=== PATIENT | male | born 1945 | race Caucasian/White ===

== ENCOUNTER 2016-05-08 11:52 | Day surgery (SDC) | payer MEDICARE ==
[~2016-05-08] VITALS: Ht 172.7 cm; Wt 96.4 kg
[~2016-05-08 11:52] MED LIST: ACET-2267 PO; ACET-2469 PO; ACHD5005 PO; ALLO100T PO; ALLP100T PO; AMLO10TA2 PO; AMLO5TAB2 PO; APIX5TAB2 PO; ATOR10TA PO; CETI10CA PO; CETI10TA17 PO; CHOL10003 PO; CITA-105 PO; CLOP75TA28 PO; CYCL10TA9 PO; DIABETIC PILL; DONE5TAB30 PO; DOXA4TAB2 PO; DULO60CA6 PO; ESCI5TAB PO; FINA5TAB PO; FINA5TAB6 PO; FLUO40CA PO; HYDR-229 PO; HYDR-3583 PO; HYDR-3714 PO; LISI1TAB PO; LISI1TAB8 PO; MELO-195 PO; MELO-198 PO; METF1000 PO; METF500T4 PO; METO25TA6 PO; MTF500T PO; PROSTATE PILL; RANO500T3 PO; [UNRECOGNIZED DRUG - OTHER] PO
[2016-05-08] MEDS ORDERED: ASPIRIN 81 MG CHEW (CHILDREN'S ASA) PO ONE (12:15)
[2016-05-08 12:26] LABS: BASOPHILS % (AUTO) 1 % (0-10); EOSINOPHILS % (AUTO) 1 % (0-10); LYMPHOCYTES # (AUTO) 1.1 X 10^3 (1.0-4.0); LYMPHOCYTES % (AUTO) 20 % (12-44); MEAN CORPUSCULAR HEMOGLOBIN 32 PG (25-34); MEAN CORPUSCULAR HGB CONC 36 G/DL (32-36); MEAN CORPUSCULAR VOLUME 89 FL (80-99); MEAN PLATELET VOLUME 9.6 FL (7.4-10.4); MONOCYTES # (AUTO) 0.7 X 10^3 (0.0-1.0); MONOCYTES % (AUTO) 13 % (0-12); NEUTROPHILS # (AUTO) 3.7 X 10^3 (1.8-7.8); NEUTROPHILS % (AUTO) 66 % (42-75); PLATELET COUNT 180 10^3/uL (130-400); RED BLOOD COUNT 4.79 10^6/uL (4.35-5.85); WHITE BLOOD COUNT 5.6 10^3/uL (4.3-11.0)
--- NOTE | 2016-05-08 12:27 | ED Chest Pain ---
General Chief Complaint: Chest Pain Stated Complaint: CHEST TIGHTNESS/SOA Nursing Triage Note: PT SENT TO ER FROM DR. FUNG'S OFFICE WITH CC OF CHEST PAIN OFF AND ON FOR YEARS, WORSE LATELY. STATES UPPER CHEST TIGHTNESS. Nursing Sepsis Screen: No Definite Risk Source: patient Exam Limitations: no limitations History of Present Illness Time seen by provider: 12:10 Initial Comments Here with report of intermittent chest pain that has been on off for quite some time and has history of small vessel disease requiring angioplasty. Last catheter procedure was a year and half ago. Was seen at Dr. Fung's office today and sent here for further evaluation. Dr. Fung is out of town until tomorrow. Patient reports pain is coming and going more frequently and lasting longer. It is not exacerbated by any specific activity and states that he gets it even at rest. Denies chest pain currently. Denies shortness of breath. Denies nausea, vomiting, weakness or diaphoresis. Reports taking meds as directed. Does note that his blood sugar has been increased recently Timing/Duration: 1 week, getting worse, changing over time, intermittent Severity/Quality: moderate Location: central Radiation: no radiation Activities at Onset: none Prior CP/Workup: angina, cardiac cath, echocardiography, heart attack ASA po DRUM ATTENDANT: No (on Eliquis) NTG SL DRUM ATTENDANT: No Associated Symptoms: No abdominal pain, No back pain, No fever/chills, No nausea/vomiting, No shortness of breath, weakness Allergies and Home Medications Allergies Coded Allergies: NKANo Known Allergies (Unverified Allergy, Mild, 04/07/09) Home Medications Acetaminophen 500 Mg Tablet 500 MG PO BID PRN PRN PAIN (Reported) Allopurinol 100 Mg Tablet 100 MG PO DAILY (Reported) Apixaban 5 Mg Tablet 5 MG PO BID (Reported) Atorvastatin Calcium 10 Mg Tablet 10 MG PO HS (Reported) Cetirizine Hcl 10 Mg Capsule 10 MG PO DAILY (Reported) Clopidogrel Bisulfate 75 Mg Tablet 75 MG PO DAILY (Reported) Donepezil Hcl 5 Mg Tablet 5 MG PO HS (Reported) Doxazosin Mesylate 4 Mg Tablet 4 MG PO HS (Reported) Escitalopram Oxalate 5 Mg Tablet 5 MG PO DAILY (Reported) Finasteride 5 Mg Tablet 5 MG PO DAILY (Reported) Lisinopril/Hydrochlorothiazide 1 Tab Tablet 2 TAB PO DAILY (Reported) Metformin HCl 1,000 Mg Tablet 1,000 MG PO BID (Reported) Metoprolol Tartrate 25 Mg Tablet #60 25 MG PO BID Prescribed by: JAQUELIN PERALTA on 09/01/14 1338 Ranolazine 500 Mg Tab.er.12h 500 MG PO BID (Reported) Review of Systems Constitutional: see HPINo chills, No fever EENTM: No Symptoms Reported Respiratory: No Symptoms Reported Cardiovascular: See HPI Chest PainDenies Edema, Irregular Heart RateDenies Lightheadedness, Denies Palpitations Gastrointestinal: No Symptoms Reported Genitourinary: No Symptoms Reported Musculoskeletal: no symptoms reported Skin: no symptoms reported All Other Systems Reviewed Negative Unless Noted: Yes Past Iqwyqhd-Zritrj-Pizlyk Hx Patient Social History Alcohol Use: Rarely Uses Recreational Drug Use: No Smoking Status: Former Smoker Type Used: Cigarettes Former Smoker/When Quit: Sep 01, 1986 Recent Foreign Travel: No Contact w/Someone Who Travel: No Recent Infectious Disease Expo: No Recent Hopitalizations: Yes (4-5 MONTHS AGO FOR CHEST PAIN) Physical Abuse Screen: No Sexual Abuse: No Immunizations Up To Date Tetanus Booster (TDap): Less than 5yrs Date of Pneumonia Vaccine: Feb 10, 2015 Date of Influenza Vaccine: Feb 03, 2011 Seasonal Allergies Seasonal Allergies: Yes Surgeries HX Surgeries: Yes (HERNIA SURGERY, HEMORRHOIDS, EYE MUSCLE SURGERY, skin graft) Surgeries: Abdominal, Cardiac, Gallbladder Respiratory Hx Respiratory Disorders: No (SOA increasing over last 3-4 weeks ) Cardiovascular Hx Cardiac Disorders: Yes Cardiac Disorders: Atrial Fibrillation, Coronary Artery Disease, Hypertension Neurological Hx Neurological Disorders: Yes (Myalgia) Reproductive System Hx Reproductive Disorders: No Sexually Transmitted Disease: No HIV/AIDS: No Genitourinary Hx Genitourinary Disorders: Yes Genitourinary Disorders: Benign Prostatic Hyperpl Gastrointestinal Hx Gastrointestinal Disorders: Yes (HX OF COLON CA) Gastrointestinal Disorders: Gastroesophageal Reflux, Polyps Musculoskeletal Hx Musculoskeletal Disorders: Yes Musculoskeletal Disorders: Degenerate Disk Disease, Arthritis, Gout Endocrine Hx Endocrine Disorders: Yes (metformin) Endocrine Disorders: Diabetes, Non-Insulin dep HEENT HX ENT Disorders: No Loss of Vision: Denies Hearing Impairment: Hard of Hearing Cancer Hx Cancer: Yes Cancer: Colon Psychosocial Hx Psychiatric Problems: Yes Behavioral Health Disorders: Depression Integumentary HX Skin/Integumentary Disorder: Yes (skin graft to left graham) Blood Transfusions Hx Blood Disorders: No Adverse Reaction to a Blood Tr: No Reviewed Nursing Assessment Reviewed/Agree w Nursing PMH: Yes Family Medical History Family Medial History: Cardiovascular disease 19 FATHER Hypertension 19 FATHER Physical Exam Vital Signs Vital Sign - Last 12Hours 05/08/16 12:02 Temp 97.7 Pulse 68 Resp 20 B/P 146/91 Pulse Ox 97 O2 Delivery Room Air Capillary Refill : Less Than 3 Seconds General Appearance: No Apparent Distress WD/WN HEENT: PERRL/EOMI Pharynx Normal Neck: Full Range of Motion Supple Respiratory: Lungs Clear Normal Breath Sounds Cardiovascular: No Murmur Irregularly Irregular Gastrointestinal: Non Tender Soft Extremity: Normal Inspection Normal Range of Motion Non Tender No Calf Tenderness Neurologic/Psychiatric: Alert Oriented x3 Skin: Normal Color Warm/Dry Progress/Results/Core Measures Results/Orders Lab Results Laboratory Tests Test 05/08/16 12:15 Range/Units Activated Partial Thromboplast Time 31 24-35 SEC Alanine Aminotransferase (ALT/SGPT) 34 0-55 U/L Albumin 4.2 3.2-4.5 G/DL Alkaline Phosphatase 62 40-136 U/L Anion Gap 10 5-14 MMOL/L Aspartate Amino Transf (AST/SGOT) 19 5-34 U/L BUN/Creatinine Ratio 17 Basophils # (Auto) 0.0 0.0-0.1 10^3/uL Basophils (%) (Auto) 1 0-10 % Blood Urea Nitrogen 16 7-18 MG/DL Calcium Level 9.2 8.5-10.1 MG/DL Carbon Dioxide Level 23 21-32 MMOL/L Chloride Level 107 98-107 MMOL/L Creatinine 0.94 0.60-1.30 MG/DL Eosinophils # (Auto) 0.0 0.0-0.3 10^3/uL Eosinophils (%) (Auto) 1 0-10 % Estimat Glomerular Filtration Rate > 60 Glucose Level 224 H 70-105 MG/DL Hematocrit 43 40-54 % Hemoglobin 15.2 13.3-17.7 G/DL INR Comment 1.1 0.8-1.4 Lymphocytes # (Auto) 1.1 1.0-4.0 X 10^3 Lymphocytes (%) (Auto) 20 12-44 % Magnesium Level 2.1 1.8-2.4 MG/DL Mean Corpuscular Hemoglobin 32 25-34 PG Mean Corpuscular Hemoglobin Concent 36 32-36 G/DL Mean Corpuscular Volume 89 80-99 FL Mean Platelet Volume 9.6 7.4-10.4 FL Monocytes # (Auto) 0.7 0.0-1.0 X 10^3 Monocytes (%) (Auto) 13 H 0-12 % Myoglobin 42.9 10.0-92.0 NG/ML Neutrophils # (Auto) 3.7 1.8-7.8 X 10^3 Neutrophils (%) (Auto) 66 42-75 % Platelet Count 180 130-400 10^3/uL Potassium Level 4.0 3.6-5.0 MMOL/L Prothrombin Time 14.0 12.2-14.7 SEC Red Blood Count 4.79 4.35-5.85 10^6/uL Red Cell Distribution Width 13.0 10.0-14.5 % Sodium Level 140 135-145 MMOL/L Total Bilirubin 0.9 0.1-1.0 MG/DL Total Protein 6.7 6.4-8.2 G/DL Troponin I < 0.30 <0.30 NG/ML White Blood Count 5.6 4.3-11.0 10^3/uL My Orders Orders-DANIEL CLARK MD Cbc With Automated Diff (05/08/16 12:07) Magnesium (05/08/16 12:07) Chest 1 View, Ap/Pa Only (05/08/16 12:07) Ekg Tracing (05/08/16 12:07) Cardiac Profile 1 (05/08/16 12:07) Comprehensive Metabolic Panel (05/08/16 12:07) Myoglobin Serum (05/08/16 12:07) Protime With Inr (05/08/16 12:07) Partial Thromboplastin Time (05/08/16 12:07) O2 (05/08/16 12:07) Monitor-Rhythm Ecg Trace Only (05/08/16 12:07) Lipid Panel (05/09/16 06:00) Aspirin Chewable Tablet (Baby Aspirin Ch (05/08/16 12:15) Saline Lock/Iv-Start (05/08/16 12:07) Medications Given in ED Current Medications Medications Dose Ordered Sig/Jaylen Route Start Time Stop Time Status Last Admin Dose Admin Aspirin 324 mg ONCE ONCE PO 05/08/16 12:15 05/08/16 12:16 DC 05/08/16 12:30 324 MG Vital Signs/I&O Vital Sign - Last 12Hours 05/08/16 05/08/16 12:02 12:05 Temp 97.7 Pulse 68 Resp 20 B/P 146/91 Pulse Ox 97 O2 Delivery Room Air Room Air Blood Pressure Mean: 109 Progress Note : Progress Note Seen and evaluated. IV, labs, EKG and chest x-ray. ASA 324 mg by mouth given. Monitor patient. 1312: Labs reviewed. Discussed case with Dr. Aragon. She accepts patient for admission, observation status. Dr. Fernández has been consulted and accepts patient for consult for Dr. Fung. Patient and family agree with plan. ECG Initial ECG Impression Date: May 08, 2016 Initial ECG Impression Time: 12:01 Initial ECG Rate: 71 Initial ECG Rhythm: A Fib/Flutter Comment Atrial fibrillation with normal axis. No evidence of ST elevation VT. Similar to previous of 09/11/15. Interpreted by me. Diagnostic Imaging Diagonstic Imaging: Xray Plain Films/CT/US/NM/MRI: chest Comments VIA [facility], [facility]. [place], [place] NAME: LISSET [facility]OBBY [facility] REC#: [id number] PT STATUS: REG ER : 1945 PHYSICIAN: DANIEL CLARK MD ADMIT DATE: 05/08/16/ER Draft Date of Exam:05/08/16 CHEST 1 VIEW, AP/PA ONLY INDICATION: Chronic chest pain, worsening over the last two days. DISCUSSION: Single portable upright view of the chest was obtained, comparison 09/11/2015. Borderline cardiomegaly is noted. Old right rib fractures are stable. Mild interstitial thickening within the bilateral lung bases is stable, likely chronic. No focal consolidation, pleural fluid, pneumothorax. No evidence of rubina heart failure. IMPRESSION: 1. No acute cardiopulmonary process. Dictated on workstation # [id number] Dict: 05/08/16 1241 Trans: 05/08/16 1248 [facility] [id number] Interpreted by: CHARLIE SANCHEZ MD Electronically signed by: Departure Communication Time/Spoke to Admitting Phy: 13:12 Time/Spoke to Consulting Physi: 12:14 Impression Impression: Primary Impression: Unstable angina Disposition: 09 ADMITTED INPATIENT Condition: Stable Decision to Admit Reason: Admit from ER (General) Decision to Admit/Date: May 08, 2016 Time/Decision to Admit Time: 13:12 Departure-Patient Inst. Referrals: ANA ARAGON DO (PCP/Family) Primary Care Physician DANIEL CLARK MD May 08, 2016 12:26
[2016-05-08 12:38] LABS: INR 1.1 (0.8-1.4)
[2016-05-08 12:46] LABS: ALANINE AMINOTRANSFERASE 34 U/L (0-55); ALBUMIN 4.2 G/DL (3.2-4.5); ANION GAP 10 MMOL/L (5-14); ASPARTATE AMINO TRANSFERASE 19 U/L (5-34); BILIRUBIN,TOTAL 0.9 MG/DL (0.1-1.0); BLOOD UREA NITROGEN 16 MG/DL (7-18); BUN/CREATININE RATIO 17; CALCIUM 9.2 MG/DL (8.5-10.1); CARBON DIOXIDE 23 MMOL/L (21-32); CHLORIDE 107 MMOL/L (98-107); CREATININE SERUM 0.94 MG/DL (0.60-1.30); GFR ESTIMATED > 60; GLUCOSE 224 MG/DL (70-105); MAGNESIUM 2.1 MG/DL (1.8-2.4); SODIUM 140 MMOL/L (135-145); TOTAL PROTEIN 6.7 G/DL (6.4-8.2)
--- NOTE | 2016-05-08 12:48 | Diagnostic Imaging Report ---
INDICATION: Chronic chest pain, worsening over the last two days. DISCUSSION: Single portable upright view of the chest was obtained, comparison 09/11/2015. Borderline cardiomegaly is noted. Old right rib fractures are stable. Mild interstitial thickening within the bilateral lung bases is stable, likely chronic. No focal consolidation, pleural fluid, pneumothorax. No evidence of rubina heart failure. IMPRESSION: 1. No acute cardiopulmonary process. Dictated by: Dictated on workstation # [id number]
[2016-05-08 12:52] LABS: MYOGLOBIN SERUM 42.9 NG/ML (10.0-92.0)
[2016-05-08 14:42] VITALS: BP 108/67
[2016-05-08 15:25] VITALS: BP 156/97
[2016-05-08] MEDS ORDERED: CATHETER FLUSH 10 ML SYR IV PRN (15:45)
[2016-05-08] MEDS: inSUlin (REGULAR) HUMAN 1 UNIT/0.01 ML (CHARGE PER UNIT) SC SCH ×2 (16:00→21:00)
[2016-05-08] MEDS ORDERED: LISI1TAB8 PO (16:07)
[2016-05-08] MEDS ORDERED: AMLO10TA2 PO (16:07)
[2016-05-08] MEDS ORDERED: APIX2.5T PO (16:07)
[2016-05-08] MEDS ORDERED: ESCI5TAB12 PO (16:07)
[2016-05-08] MEDS ORDERED: FINA5TAB6 PO (16:07)
[2016-05-08] MEDS ORDERED: METO-333 PO (16:07)
[2016-05-08] MEDS ORDERED: DOXA4TAB2 PO (16:07)
[2016-05-08] MEDS ORDERED: ALLO100T PO (16:07)
[2016-05-08] MEDS ORDERED: DONE5TAB30 PO (16:07)
[2016-05-08] MEDS ORDERED: METF1000 PO (16:08)
[2016-05-08] MEDS ORDERED: CLOP75TA28 PO (16:13)
[2016-05-08] MEDS ORDERED: CALC-781 PO (16:16)
[2016-05-08] MEDS: NS IV 1000 ML 1,000 ML IV SCH (16:45)
[2016-05-08] MEDS ORDERED: morphine INJ 10 MG/ML 1ML (SYR OR VIAL) IVP PRN (19:00)
[2016-05-08] MEDS ORDERED: NITROGLYCERIN SUBLINGUAL 0.4 MG TAB (NITROSTAT) SL PRN (19:00)
[2016-05-08] MEDS ORDERED: morphine INJ 4 MG/ML 1 ML (VIAL/SYRINGE) IV PRN (19:15)
--- NOTE | 2016-05-08 19:44 | History & Physicial ---
History of Present Illness History of Present Illness Reason for visit/HPI This is a 71 year old male with a known history of CAD who was sent to the emergency room from Dr. Reilly's office due to escalating chest pain. The patient reports that he has been having increasing substernal chest pain and pressure that radiates across both sides of his chest and sometimes down the insides of both arms. He is in chronic atrial fibrillation and his rate was controlled in the emergency room. He does report worsening fatigue over the past 2 months as well as dyspnea with exertion. He also reports increased heartburn recently. He states his blood sugars have been increased the past 2 weeks as well. He will be admitted to cardiac stepdown for unstable angina with cardiac consult. Date of Admission May 08, 2016 at 14:21 I consulted on this patient on 05/08/16 19:38 Attending Physician Laura Aragon DO Admitting Physician Laura Aragon DO Consult Allergies and Home Medications Allergies Coded Allergies: NKANo Known Allergies (Unverified Allergy, Mild, 04/07/09) Home Medications Acetaminophen 500 Mg Tablet 500-1,000 MG PO Q6H PRN PRN PAIN (Reported) TAKES 1-2 (500 MG) TABLETS Allopurinol 100 Mg Tablet 100 MG PO DAILY (Reported) Amlodipine Besylate 10 Mg Tablet 10 MG PO DAILY (Reported) Apixaban 2.5 Mg Tablet 5 MG PO BID (Reported) TAKES 2 (2.5 MG) TABLETS Calcium Carb/Magnesium Hydrox 1 Each Tab.chew 1 TAB PO DAILY PRN PRN PRN GAS ( Reported) Cetirizine Hcl 10 Mg Capsule 10 MG PO DAILY (Reported) Clopidogrel Bisulfate 75 Mg Tablet 75 MG PO DAILY (Reported) Donepezil HCl 5 Mg Tablet 5 MG PO HS (Reported) Doxazosin Mesylate 4 Mg Tablet 4 MG PO HS (Reported) Escitalopram Oxalate 5 Mg Tablet 5 MG PO DAILY (Reported) Finasteride 5 Mg Tablet 5 MG PO DAILY (Reported) Lisinopril/Hydrochlorothiazide 1 Each Tablet 2 TAB PO DAILY (Reported) Metformin HCl 1,000 Mg Tablet 1,000 MG PO BID (Reported) Metoprolol Tartrate 25 Mg Tablet 25 MG PO BID (Reported) Past Mogrblw-Ttahmj-Eqeapn Hx Patient Social History Alcohol Use: Rarely Uses Recreational Drug Use: No Smoking Status: Former Smoker Former smoker/When Quit: Sep 01, 1986 Type Used: Cigarettes Physical Abuse Screen: No Sexual Abuse: No Recent Foreign Travel: No Contact w/other who traveled: No Recent Hopitalizations: Yes (4-5 MONTHS AGO FOR CHEST PAIN) Recent Infectious Disease Expo: No Immunizations Up To Date Tetanus Booster (TDap): Less than 5yrs Date of Pneumonia Vaccine: Feb 10, 2015 Date of Influenza Vaccine: Feb 03, 2011 Seasonal Allergies Seasonal Allergies: Yes Surgeries HX Surgeries: Yes (HERNIA SURGERY, HEMORRHOIDS, EYE MUSCLE SURGERY, skin graft) Surgeries: Abdominal, Cardiac, Gallbladder Respiratory Hx Respiratory Disorders: No (SOA increasing over last 3-4 weeks ) Cardiovascular Hx Cardiovascular Disorders: Yes Cardiac Disorders: Atrial Fibrillation, Coronary Artery Disease, Hypertension Neurological Hx Neurological Disorders: Yes (Myalgia) Reproductive System Hx Reproductive Disorders: No Sexually Transmitted Disease: No HIV/AIDS: No Genitourinary Hx Genitourinary Disorders: Yes Genitourinary Disorders: Benign Prostatic Hyperpl Gastrointestinal Hx Gastrointestinal Disorders: Yes (HX OF COLON CA) Gastrointestinal Disorders: Gastroesophageal Reflux, Polyps Musculoskeletal Hx Musculoskeletal Disorders: Yes Musculoskeletal Disorders: Degenerate Disk Disease, Arthritis, Gout Endocrine Hx Endocrine Disorders: Yes (metformin) Endocrine Disorders: Diabetes, Non-Insulin dep HEENT HX ENT Disorders: No Loss of Vision: Denies Hearing Impairment: Hard of Hearing Cancer Hx Cancer: Yes Cancer: Colon Psychosocial Hx Psychiatric Problems: Yes Behavioral Health Disorders: Depression Integumentary HX Skin/Integumentary Disorder: Yes (skin graft to left graham) Blood Transfusions Hx Blood Disorders: No Adverse Reaction to a Blood Tr: No Reviewed Nursing Assessment Reviewed/Agree w Nursing PMH: Yes Family Medical History Family Hx: Cardiovascular disease 19 FATHER Hypertension 19 FATHER Constitutional: weakness EENTM: No blurred vision, No dental problems, No double vision, No ear discharge, No ear pain, No epistaxis, No eye pain, No hearing loss, No hoarseness, No mouth pain, No mouth swelling, No no symptoms reported, No nose congestion, No nose pain, No other, No see HPI, No tearing, No throat pain, No throat swelling, No vision loss Respiratory: dyspnea on exertion Cardiovascular: chest pain Gastrointestinal: heartburn Genitourinary: No no symptoms reported, No see HPI, No decreased output, No discharge, No dysuria, No frequency, No hematuria, No hesitancy, No incontinence , No nocturia, No pain, No other Musculoskeletal: joint pain Skin: No no symptoms reported, No see HPI, No change in color, No change in hair/nails, No dryness, No hx of skin cancer, No lesions, No lumps, No pruritus , No rash, No other Psychiatric/Neurological: Weakness Physical Exam Vital Signs Vital Sign - Last 12Hours 05/08/16 12:02 Temp 97.7 Pulse 68 Resp 20 B/P 146/91 Pulse Ox 97 O2 Delivery Room Air Capillary Refill : Less Than 3 Seconds General Appearance: No Apparent Distress WD/WN HEENT: Pharynx Normal Neck: Supple Respiratory: Lungs Clear Cardiovascular: Systolic Murmur Gallop/S3 Irregularly Irregular Gastrointestinal: Normal Bowel Sounds Soft Tenderness (epigastric) Rectal: Deferred Back: No CVA Tenderness Extremity: Non Tender No Calf Tenderness No Pedal Edema Neurologic/Psychiatric: Alert Oriented x3 Skin: Warm/Dry Comments Laboratory Tests 05/08/16 12:15: Activated Partial Thromboplast Time 31, Alanine Aminotransferase (ALT/SGPT) 34, Albumin 4.2, Alkaline Phosphatase 62, Anion Gap 10, Aspartate Amino Transf (AST/ SGOT) 19, BUN/Creatinine Ratio 17, Basophils # (Auto) 0.0, Basophils (%) (Auto) 1, Blood Urea Nitrogen 16, Calcium Level 9.2, Carbon Dioxide Level 23, Chloride Level 107, Creatinine 0.94, Eosinophils # (Auto) 0.0, Eosinophils (%) (Auto) 1, Estimat Glomerular Filtration Rate > 60, Glucose Level 224H, Hematocrit 43, Hemoglobin 15.2, INR Comment 1.1, Lymphocytes # (Auto) 1.1, Lymphocytes (%) ( Auto) 20, Magnesium Level 2.1, Mean Corpuscular Hemoglobin 32, Mean Corpuscular Hemoglobin Concent 36, Mean Corpuscular Volume 89, Mean Platelet Volume 9.6, Monocytes # (Auto) 0.7, Monocytes (%) (Auto) 13H, Myoglobin 42.9, Neutrophils # (Auto) 3.7, Neutrophils (%) (Auto) 66, Platelet Count 180, Potassium Level 4.0, Prothrombin Time 14.0, Red Blood Count 4.79, Red Cell Distribution Width 13.0, Sodium Level 140, Total Bilirubin 0.9, Total Protein 6.7, Troponin I < 0.30, White Blood Count 5.6 05/08/16 18:57: Troponin I < 0.30 Assessment/Plan Assessment and Plan 1. Chest Pain/Unstable Angina--admit and monitor on telemetry and repeat cardiac enzymes, consult cardiology 2. GERD--IV protonix 3. Hypertension--resume home medications 4. Diabetes mellitus--uncontrolled--start SSI Clinical Quality Measures AMI/AHF: ASA po Prior to arrival: No (on Eliquis) LAURA ARAGON DO May 08, 2016 19:43
[2016-05-08] MEDS ORDERED: ACETAMINOPHEN 500 MG TAB (TYLENOL) PO PRN (19:45)
[2016-05-08] MEDS ORDERED: PANTOPRAZOLE 40 MG/10 ML (PROTONIX) VIAL IV NR (19:45)
[2016-05-08 20:00] VITALS: BP 162/94
[2016-05-08] MEDS ORDERED: doxAzosin 4 MG (CARDURA) TAB PO SCH (21:00)
[2016-05-08] MEDS ORDERED: DONEPEZIL 5 MG (ARICEPT) TAB PO SCH (21:00)
[2016-05-08] MEDS ORDERED: APIXABAN 2.5 MG (ELIQUIS) TABLET PO SCH (21:00)
[2016-05-08] MEDS: meTOprolol TARTRATE 25 MG (LOPRESSOR) TABLET PO SCH (21:04)
[2016-05-09] VITALS (15 sets, daily range): BP systolic 113–158; BP diastolic 73–96
[2016-05-09] MEDS: NS IV 1000 ML 1,000 ML IV SCH ×5 (03:00→18:20)
[2016-05-09 04:29] LABS: BASOPHILS % (AUTO) 0 % (0-10); EOSINOPHILS # (AUTO) 0.1 10^3/uL (0.0-0.3); EOSINOPHILS % (AUTO) 2 % (0-10); LYMPHOCYTES # (AUTO) 1.4 X 10^3 (1.0-4.0); LYMPHOCYTES % (AUTO) 26 % (12-44); MEAN CORPUSCULAR HEMOGLOBIN 32 PG (25-34); MEAN CORPUSCULAR HGB CONC 36 G/DL (32-36); MEAN CORPUSCULAR VOLUME 89 FL (80-99); MEAN PLATELET VOLUME 9.7 FL (7.4-10.4); MONOCYTES # (AUTO) 0.7 X 10^3 (0.0-1.0); MONOCYTES % (AUTO) 13 % (0-12); NEUTROPHILS # (AUTO) 3.2 X 10^3 (1.8-7.8); NEUTROPHILS % (AUTO) 60 % (42-75); PLATELET COUNT 163 10^3/uL (130-400); RED BLOOD COUNT 4.47 10^6/uL (4.35-5.85); RED CELL DISTRIBUTION WIDTH 12.8 % (10.0-14.5); WHITE BLOOD COUNT 5.4 10^3/uL (4.3-11.0)
[2016-05-09 04:57] LABS: ALANINE AMINOTRANSFERASE 30 U/L (0-55); ALBUMIN 3.5 G/DL (3.2-4.5); ANION GAP 9 MMOL/L (5-14); ASPARTATE AMINO TRANSFERASE 21 U/L (5-34); BLOOD UREA NITROGEN 13 MG/DL (7-18); BUN/CREATININE RATIO 17; CALCIUM 8.4 MG/DL (8.5-10.1); CARBON DIOXIDE 22 MMOL/L (21-32); CHLORIDE 107 MMOL/L (98-107); CHOLESTEROL 151 MG/DL (< 200); CREATININE SERUM 0.76 MG/DL (0.60-1.30); DIRECT LDL 101 MG/DL (1-129); GFR ESTIMATED > 60; GLUCOSE 156 MG/DL (70-105); POTASSIUM 3.5 MMOL/L (3.6-5.0); SODIUM 138 MMOL/L (135-145); TOTAL PROTEIN 5.8 G/DL (6.4-8.2); TRIGLYCERIDES 178 MG/DL (<150); VLDL CHOLESTEROL 36 MG/DL (5-40)
[2016-05-09] MEDS: inSUlin (REGULAR) HUMAN 1 UNIT/0.01 ML (CHARGE PER UNIT) SC SCH ×3 (06:00→16:30)
[2016-05-09] MEDS ORDERED: FLU TRIvalent (5 YOA+) 2016-17 (AFLURIA) 0.5 ML IM ONE (07:15)
--- NOTE | 2016-05-09 08:30 | Consultation-Cardiology ---
HPI-Cardiology Cardiology Consultation Date of Consultation 05/09/16 Date of Admission Indication: Chest pain HPI 71-year-old gentleman with history of coronary artery disease small vessel disease, had balloon angioplasty to 2 vessels in 2014, was feeling better initially then he started having increasing chest pain with exertion, could not tolerate isosorbide, could not afford Ranexa. Chest pain has been worsening, complaining of fatigue and loss of energy. Denied any palpitation, syncope or near syncopal episode he was seen in the office yesterday, reporting worsening of his symptoms and admitted to the hospital. Overnight he continued to feel better. Still concerned about his worsening chest pain over the last 2 years. We discussed the management plan recommended repeating cardiac catheterization. Home Medications & Allergies Allergies: Coded Allergies: NKANo Known Allergies (Unverified Allergy, Mild, 04/07/09) Home Medication List Reviewed: Yes medication list reviewed RYG-[id number]-Wrhuvc Hx Patient Social History Marital Status: Alcohol Use: Denies Use Recreational Drug Use: No Smoking Status: Former Smoker Former smoker/When Quit: Sep 01, 1986 Type Used: Cigarettes Recent Foreign Travel: No Recent Infectious Disease Expo: No Recent Hopitalizations: Yes (4-5 MONTHS AGO FOR CHEST PAIN) Physical Abuse Screen: No Sexual Abuse: No Immunizations Up To Date Tetanus Booster (TDap): Less than 5yrs Date of Pneumonia Vaccine: Feb 10, 2015 Date of Influenza Vaccine: Feb 03, 2011 Past Medical History Past history is discussed below Family Medical History Family History: Cardiovascular disease 19 FATHER Hypertension 19 FATHER Constitutional: see HPINo chills, No diaphoresis, No dizziness, No fever, malaise weaknessNo weight gain, No weight loss, No other EENTM: no symptoms reported see HPI Respiratory: see HPINo cough, dyspnea on exertionNo hemoptysis, No orthopnea , No phlegm, short of breathNo stridor, No wheezing, No other Cardiovascular: see HPI chest painNo edema, No Hx of Intervention, No palpitations, No syncope, No vascular heart diseas, No other Gastrointestinal: no symptoms reported see HPI Genitourinary: no symptoms reported see HPI Musculoskeletal: no symptoms reported see HPI Skin: no symptoms reported see HPI Psychiatric/Neurological: No Symptoms Reported See HPI Reviewed Test Results Reviewed Test Results Lab Laboratory Tests Test 05/08/16 12:15 05/08/16 18:57 05/08/16 21:02 1/4/17 00:30 Range/Units Activated Partial Thromboplast Time 31 24-35 SEC Alanine Aminotransferase (ALT/SGPT) 34 0-55 U/L Albumin 4.2 3.2-4.5 G/DL Alkaline Phosphatase 62 40-136 U/L Anion Gap 10 5-14 MMOL/L Aspartate Amino Transf (AST/SGOT) 19 5-34 U/L BUN/Creatinine Ratio 17 Basophils # (Auto) 0.0 0.0-0.1 10^3/uL Basophils (%) (Auto) 1 0-10 % Blood Urea Nitrogen 16 7-18 MG/DL Calcium Level 9.2 8.5-10.1 MG/DL Carbon Dioxide Level 23 21-32 MMOL/L Chloride Level 107 98-107 MMOL/L Creatinine 0.94 0.60-1.30 MG/DL Eosinophils # (Auto) 0.0 0.0-0.3 10^3/uL Eosinophils (%) (Auto) 1 0-10 % Estimat Glomerular Filtration Rate > 60 Glucose Level 224 H 70-105 MG/DL Hematocrit 43 40-54 % Hemoglobin 15.2 13.3-17.7 G/DL INR Comment 1.1 0.8-1.4 Lymphocytes # (Auto) 1.1 1.0-4.0 X 10^3 Lymphocytes (%) (Auto) 20 12-44 % Magnesium Level 2.1 1.8-2.4 MG/DL Mean Corpuscular Hemoglobin 32 25-34 PG Mean Corpuscular Hemoglobin Concent 36 32-36 G/DL Mean Corpuscular Volume 89 80-99 FL Mean Platelet Volume 9.6 7.4-10.4 FL Monocytes # (Auto) 0.7 0.0-1.0 X 10^3 Monocytes (%) (Auto) 13 H 0-12 % Myoglobin 42.9 10.0-92.0 NG/ML Neutrophils # (Auto) 3.7 1.8-7.8 X 10^3 Neutrophils (%) (Auto) 66 42-75 % Platelet Count 180 130-400 10^3/uL Potassium Level 4.0 3.6-5.0 MMOL/L Prothrombin Time 14.0 12.2-14.7 SEC Red Blood Count 4.79 4.35-5.85 10^6/uL Red Cell Distribution Width 13.0 10.0-14.5 % Sodium Level 140 135-145 MMOL/L Total Bilirubin 0.9 0.1-1.0 MG/DL Total Protein 6.7 6.4-8.2 G/DL Troponin I < 0.30 < 0.30 < 0.30 <0.30 NG/ML White Blood Count 5.6 4.3-11.0 10^3/uL Glucometer 141 H 70-110 MG/DL Test 05/09/16 04:04 05/09/16 04:05 Range/Units Alanine Aminotransferase (ALT/SGPT) 30 0-55 U/L Albumin 3.5 3.2-4.5 G/DL Alkaline Phosphatase 49 40-136 U/L Anion Gap 9 5-14 MMOL/L Aspartate Amino Transf (AST/SGOT) 21 5-34 U/L BUN/Creatinine Ratio 17 Blood Urea Nitrogen 13 7-18 MG/DL Calcium Level 8.4 L 8.5-10.1 MG/DL Carbon Dioxide Level 22 21-32 MMOL/L Chloride Level 107 98-107 MMOL/L Cholesterol Level 151 < 200 MG/DL Creatinine 0.76 0.60-1.30 MG/DL Estimat Glomerular Filtration Rate > 60 Glucose Level 156 H 70-105 MG/DL HDL Cholesterol 34 L 40-60 MG/DL LDL Cholesterol Direct 101 1-129 MG/DL Potassium Level 3.5 L 3.6-5.0 MMOL/L Sodium Level 138 135-145 MMOL/L Total Bilirubin 1.0 0.1-1.0 MG/DL Total Protein 5.8 L 6.4-8.2 G/DL Triglycerides Level 178 H <150 MG/DL VLDL Cholesterol 36 5-40 MG/DL Basophils # (Auto) 0.0 0.0-0.1 10^3/uL Basophils (%) (Auto) 0 0-10 % Eosinophils # (Auto) 0.1 0.0-0.3 10^3/uL Eosinophils (%) (Auto) 2 0-10 % Hematocrit 40 40-54 % Hemoglobin 14.2 13.3-17.7 G/DL Lymphocytes # (Auto) 1.4 1.0-4.0 X 10^3 Lymphocytes (%) (Auto) 26 12-44 % Mean Corpuscular Hemoglobin 32 25-34 PG Mean Corpuscular Hemoglobin Concent 36 32-36 G/DL Mean Corpuscular Volume 89 80-99 FL Mean Platelet Volume 9.7 7.4-10.4 FL Monocytes # (Auto) 0.7 0.0-1.0 X 10^3 Monocytes (%) (Auto) 13 H 0-12 % Neutrophils # (Auto) 3.2 1.8-7.8 X 10^3 Neutrophils (%) (Auto) 60 42-75 % Platelet Count 163 130-400 10^3/uL Red Blood Count 4.47 4.35-5.85 10^6/uL Red Cell Distribution Width 12.8 10.0-14.5 % White Blood Count 5.4 4.3-11.0 10^3/uL Physical Exam Vital Signs Vital Sign - Last 12Hours 05/08/16 12:02 Temp 97.7 Pulse 68 Resp 20 B/P 146/91 Pulse Ox 97 O2 Delivery Room Air Capillary Refill : Less Than 3 Seconds General Appearance: No Apparent Distress WD/WN Eyes: Bilateral Eye EOMI, Bilateral Eye Normal Inspection, Bilateral Eye PERRL HEENT: PERRL/EOMI TMs Normal Normal ENT Inspection Pharynx Normal Neck: Full Range of Motion Normal Inspection Non Tender Supple Carotid Bruit Respiratory: Chest Non Tender Lungs Clear Normal Breath Sounds No Accessory Muscle Use No Respiratory Distress Cardiovascular: No Edema No Gallop No JVD No Murmur Normal Peripheral Pulses Irregularly Irregular Gastrointestinal: Normal Bowel Sounds No Organomegaly No Pulsatile Mass Non Tender Soft Back: Normal Inspection No CVA Tenderness No Vertebral Tenderness Extremity: Normal Capillary Refill Normal Inspection Normal Range of Motion Non Tender No Calf Tenderness No Pedal Edema Neurologic/Psychiatric: Alert Oriented x3 No Motor/Sensory Deficits Normal Mood/Affect Skin: Normal Color Warm/Dry Lymphatic: No Adenopathy A/P-Cardiology Admission Diagnosis Chest pain nonspecific etiology Coronary artery disease Permanent atrial fibrillation Hypertension Hyperlipidemia Assessment/Plan Chest pain, history of chronic stable angina, worsening chest pain recently, increasing fatigue and loss of energy. Unable to tolerate isosorbide or Ranexa. Last intervention was done in 2014, planning to proceed with cardiac catheterization. Coronary artery disease-cardiac catheterization done on October 22, [address] [facility] revealing left main with 25 percent narrowing. LAD had apical 75-80 percent narrowing reduced to less than 25 percent following balloon angioplasty. First diagonal with 30-40 percent narrowing. Ramus branch with mild 25 percent narrowing. Circumflex artery with 30-40 percent diffuse narrowing and small system. RCA was moderately large vessel with 20-25 percent stenosis. Posterior lateral branch had 80 percent narrowing reduced to less than 25 percent following balloon angioplasty. PDA had 70 percent mid narrowing reduced to less than 25 percent following balloon angioplasty. Right femoral artery was widely patent. had a stress test in July 2015 showing no significant ischemia or infarction, patient is having accelerating angina, worsening symptoms, planning to proceed with cardiac catheterization possible PTCA Atrial fibrillation, unknown duration, maintained on oral anticoagulation, I will hold Eliquis at this time and monitor closely. Congestive heart failure, Advanced diastolic dysfunction secondary to hypertensive heart disease, echocardiogram was done in July 2015 showing ejection fraction 50 percent, biatrial enlargement, pulmonary artery pressure of 40 mmHg, I will reevaluate 2-D echocardiogram. [id number] score is 3, yearly risk of stroke without oral anticoagulation is 3.2 percent. Tolerating Eliquis well. Hypertension, resume Depression/anxiety-managed by primary care physician Diabetes mellitus, followed and managed by primary care physician Hyperlipidemia, continue on current medications, continue to monitor Clinical Quality Measures AMI/AHF: ASA po Prior to arrival: No (on Eliquis) DVT/VTE Risk/Contraindication: Risk Factor Score Per Nursin RFS Level Per Nursing on Admit: 4+=Very High SKYLAR CAMPOS MD May 09, 2016 08:30
--- NOTE | 2016-05-09 08:32 | Cardiac Procedure Note-CS/ASA ---
Pre-Procedure Note Pre-Op Procedure Note H&P Reviewed The H&P was reviewed, patient examined and no changes noted. Date H&P Reviewed: May 09, 2016 Time H&P Reviewed: 08:31 Conscious Sedation Pre-Proced Time Reviewed: 08:31 ASA Class: 3 Airway Mallampati Classification: (mechoopda appropriate class) I. II. III, IV Lungs Heart ASA score ASA 1: a normal healthy patient ASA 2: a patient with a mild systemic disease (mid diabetes, controlled hypertension, obesity x ASA 3: a patient with a severe systemic disease that limits activity (angina , COPD, prior Myocardial infarction) ASA 4: a patient with an incapacitating disease that is a constant threat to life (CHF, renal failure) ASA 5: a moribund patient not expected to survive 24 hrs. (ruptured aneurysm) ASA 6: a declared brain patient whose organs are being harvested. For emergent operations, add the letter E after the classification Grade 3 Sedation Plan: Analgesia, Amnesia, Plan communicated to team members, Discussed options with patient/fam, Discussed risks with patient/fam Note The patient is an appropriate candidate to undergo the planned procedure, sedation, and anesthesia. The patient immediately re-assessed prior to indication. SKYLAR CAMPOS MD May 09, 2016 08:32
[2016-05-09] MEDS ORDERED: LIDOCAINE 1% INJ 20 ML (XYLOCAINE) VIAL ONE (08:45)
[2016-05-09] MEDS ORDERED: HEParin (CATH LAB) 2,000 ML IV ONE (08:45)
[2016-05-09] MEDS ORDERED: HYDROCHLOROTHIAZIDE 25 MG (HCTZ) TAB PO SCH (09:00)
[2016-05-09] MEDS ORDERED: ALLOPURINOL 100 MG (ZYLOPRIM) TAB PO SCH (09:00)
[2016-05-09] MEDS ORDERED: NON-FORMULARY MEDICATION 1 EA EA (Escitalopram Oxalate 5 MG) PO SCH (09:00)
[2016-05-09] MEDS ORDERED: CLOPIDOGREL 75 MG (PLAVIX) TABLET PO SCH (09:00)
[2016-05-09] MEDS ORDERED: ASPIRIN E.C. 325 MG (ECOTRIN) TABLET PO SCH (09:00)
[2016-05-09] MEDS ORDERED: PANTOPRAZOLE 40 MG/10 ML (PROTONIX) VIAL IV SCH (09:00)
[2016-05-09] MEDS ORDERED: APIXABAN 5 MG (ELIQUIS) TABLET PO SCH (09:00)
[2016-05-09] MEDS ORDERED: NON-FORMULARY MEDICATION 1 EA EA (Finasteride 5 MG) PO SCH (09:00)
[2016-05-09] MEDS ORDERED: FINASTERIDE (PROSCAR) 5 MG TAB PO SCH (09:00)
[2016-05-09] MEDS ORDERED: amLODIPine 10 MG (NORVASC) TAB PO SCH (09:00)
[2016-05-09] MEDS ORDERED: lisINopril 20 MG (ZESTRIL) TAB PO SCH (09:00)
[2016-05-09] MEDS: meTOprolol TARTRATE 25 MG (LOPRESSOR) TABLET PO SCH (09:47)
[2016-05-09] MEDS ORDERED: MIDAZOLAM 5 MG/5 ML (VERSED) VIAL ONE (13:00)
[2016-05-09] MEDS ORDERED: fentaNYL INJECTION 100 MCG/2 ML AMP ONE (13:00)
[2016-05-09] MEDS ORDERED: NS IV 1000 ML 1,000 ML IV SCH (14:24)
[2016-05-09] MEDS ORDERED: PATIENT MAY USE OWN MEDS, ALL PO SCH (14:30)
[2016-05-09] MEDS ORDERED: PANT40SU PO (14:31)
--- NOTE | 2016-05-09 14:33 | Discharge Inst-Post CATH ---
Discharge Inst-CATH Post Cardiac Cath D/C Inst Follow Up/Plan Hold Metformin fo [address] Fung's office in 2-4 weeks CARDIAC CATH DISCHARGE INSTRUCTIONS *Hold Metformin for 48 hours post heart cath. ACTIVITY * Go Home directly and rest. * Limit activity of the leg (or wrist if it was used) for 7 days including aerobics, swimming, jogging, bicycling, etc. * Restrict stair-climbing for 7 days if possible, if not, climb up with your non -cath leg, then bring together on the same step. * Avoid lifting, pushing, pulling or excessive movement of the affected extremity for 7 days. * Customary sexual activity may be resumed after 2 days-use caution not to use a position that strains or causes pain to the affected extremity. * No driving for 24 hours. * NO SMOKING. * Avoid straining for bowel movements for 7 days. * Gentle walking on level ground is allowed. * Returning to work will depend on the type of procedure and the results. Your doctor will discuss this with you. CALL YOUR DOCTOR FOR ANY OF THE FOLLOWING: *If bleeding from the puncture site occurs- Apply gentle pressure to site with clean cloth and call your doctor or EMS. * If a knot or lump forms under the skin, increases in size, or causes pain. * If bruising appears to be worsening or moving further down your leg instead of disappearing. * Temperature above 101 F. CARE OF YOUR GROIN INCISION; * Bruising or purple discoloration of the skin near the puncture site is common. * You may shower only, no bathtub bathing for 5 days. Be careful to avoid slipping as your leg may feel stiff. * If a closure device was used on your femoral artery, please see the attached guide regarding care of the device and your leg. * REMOVE the dressing from your groin the next day after your procedure in the shower. CARE OF YOUR WRIST INCISION; * Bruising or purple discoloration of the skin near the puncture site is common. * You may shower. * DO NOT submerge wrist. * Remove dressing in 24 hours. SKYLAR FUNG MD May 09, 2016 14:33
--- NOTE | 2016-05-09 18:44 | Discharge Summary ---
Diagnosis/Chief Complaint Date of Admission May 08, 2016 at 14:21 Date of Discharge Discharge Date: May 09, 2016 Discharge Time: 1830 Admission Diagnosis Admission Diagnosis 1. Chest Pain/Unstable Angina--admit and monitor on telemetry and repeat cardiac enzymes, consult cardiology 2. GERD--IV protonix 3. Hypertension--resume home medications 4. Diabetes mellitus--uncontrolled--start SSI Discharge Diagnosis 1. Chest Pain--Noncardiac etiology--likely from GERD 2. GERD--protonix restarted 3. Diabetes mellitus, II with recent worsening 4. Hypertension--stable 5. Fatigue--ongoing Reason Hospital Visit This is a 71 year old male with a known history of CAD who was sent to the emergency room from Dr. Reilly's office due to escalating chest pain. The patient reports that he has been having increasing substernal chest pain and pressure that radiates across both sides of his chest and sometimes down the insides of both arms. He is in chronic atrial fibrillation and his rate was controlled in the emergency room. He does report worsening fatigue over the past 2 months as well as dyspnea with exertion. He also reports increased heartburn recently. He states his blood sugars have been increased the past 2 weeks as well. He will be admitted to cardiac stepdown for unstable angina with cardiac consult. Discharge Summary Hospital Course Hospital Course This is a 71 year old male with a known history of CAD who was sent to the emergency room from Dr. Reilly's office due to escalating chest pain. The patient reported that he has been having increasing substernal chest pain and pressure that radiates across both sides of his chest and sometimes down the insides of both arms. He is in chronic atrial fibrillation and his rate was controlled in the emergency room. He also reported worsening fatigue over the past 2 months as well as dyspnea with exertion. He also reported increased heartburn recently. He stated his blood sugars had been increased the past 2 weeks as well. He was admitted to cardiac stepdown for unstable angina with cardiac consult. He was monitored on telemetry and remained in chronic atrial fibrillation but his rate was controlled. He underwent repeat cardiac enzymes which were negative. He was started on protonix for GI etiology. The following day, he was taken to the cardiac catheterization lab by Dr. Fung. His stents were still open so no intervention was done. It was felt that he could go home after his post-cath time was complete. The likely etiology is GI/ GERD and further workup for his fatigue will be accomplished as an outpatient. Labs Laboratory Tests 05/08/16 12:15: Glucose Level 224H, Monocytes (%) (Auto) 13H 05/08/16 18:57: 05/08/16 21:02: Glucometer 141H 05/09/16 00:30: 05/09/16 04:04: Calcium Level 8.4L, Glucose Level 156H, HDL Cholesterol 34L, Potassium Level 3.5L, Total Protein 5.8L, Triglycerides Level 178H 05/09/16 04:05: Monocytes (%) (Auto) 13H 05/09/16 16:30: Glucometer 158H Procedures Cardiac Cath on 05/09/15 Consultations Cardiology--Dr. Fung Discharge Physical Examination Allergies: Coded Allergies: NKANo Known Allergies (Unverified Allergy, Mild, 04/07/09) Vitals & I&Os Vital Signs Date Time Temp Pulse Resp B/P Pulse Ox O2 Delivery O2 Flow Rate FiO2 05/09/16 16:59 64 122/75 97 Room Air 05/09/16 14:44 98.2 16 General Appearance: Alert, Oriented X3, Cooperative, No Acute Distress Respiratory: Clear to Auscultation Cardiovascular: Normal S1, Normal S2, Other (irregular) Abdominal: Normal Bowel Sounds, Soft, Other (epigastric tenderness) Extremities: No Clubbing, No Cyanosis, No Edema Psych/Mental Status: Mental Status NL, Mood NL Discharge Home Medications Reviewed and agree with Discharge Medication list on patient's Discharge Instruction sheet Instructions to Patient/Family Please see electonic discharge instructions given to patient. Clinical Quality Measures AMI/AHF: ASA po Prior to arrival: No (on Eliquis) DVT/VTE Risk/Contraindication: Risk Factor Score Per Nursin RFS Level Per Nursing on Admit: 4+=Very High ANA RAMESH DO May 09, 2016 18:44
--- NOTE | 2016-05-11 09:30 | DISCHARGE SUMMARY ---
PROCEDURE PHYSICIAN: SKYLAR CAMPOS DATE OF PROCEDURE: 05/09/2016 REFERRING PHYSICIAN: Dr. Aragon BRIEF HISTORY: Mr. Car is a 71-year-old gentleman with extensive cardiac history, small vessel disease, balloon angioplasty in the past after he was considered not a suitable candidate for stent placement or bypass surgery. He was admitted with increasing chest pain. He was scheduled for cardiac catheterization. PROCEDURE NOTE: After explaining the procedure to the patient, all pros and cons were explained. All questions were answered. The patient signed a consent, then he was placed on the cardiac catheterization laboratory. The right groin was prepped in a sterile fashion. Local anesthesia applied to right groin. 6-Irish sheath was placed in the right femoral artery. Combination of right and left Yaneth catheter were used to access the right and left coronary system. Multiple views were obtained. Pigtail catheter advanced to the left ventricular cavity. Pressure was measured. Left ventriculogram was done. Pullback LV to aorta was done. At the end of the procedure, sheath was removed and Mynx device deployed. Hemostasis achieved. FINDINGS: HEMODYNAMICS: LV pressure 107/16, end-diastolic pressure of 16, aortic pressure 116/65, mean of 81. No significant gradient during pullback. ANATOMY: 1. Left main coronary artery is bifurcating to left anterior descending and left circumflex artery with no obstructive disease. 2. Left anterior descending artery is moderate in size, small vessel disease distally nonobstructive disease. 3. Left circumflex artery is a smaller artery with moderate to severe disease at the midportion. Fairly small artery not amendable to intervention. 4. Right coronary artery has 40% stenosis proximally and 40% stenosis distally. The PDA has a small artery with moderate to severe disease, not amendable to intervention. 5. Left ventriculogram was done in the right anterior oblique position. The left ventricle is normal in size with normal contractility. Estimated ejection fraction 60%. CONCLUSION: 1. Small vessel disease, especially in the circumflex artery that is a fairly small not amendable to intervention. The LAD has moderate disease with no obstructive disease. The right coronary artery has moderate disease at proximal and distal portion. The right PDA has significant disease but also it is a fairly small artery not amendable to intervention. 2. Normal left ventricular size and systolic function with ejection fraction 60%. Normal left ventricular end-diastolic pressure. No signs of congestive heart failure. DISCUSSION AND RECOMMENDATION: Mr. Car will be discharged home and monitored as an outpatient. FINAL DIAGNOSIS: 1. Chest pain secondary to unstable angina. 2. Coronary artery disease. 3. Hypertension. 4. Hyperlipidemia Job ID: [id number] Dictated Date: 05/09/2016 14:30:10 [employer] Date: 05/11/2016 09:27:08/jessica
== END 2016-05-09 19:58 | disposition home or self-care (01) ==
LOC: EDUNIT# 11:52 → ER 11:55 → CSD 14:21 → UNDOADMOB 14:21 → CATH 14:42 → CSD 14:42 → UNDOADMOB 14:42 → CSD 14:42 → CATH 05-09 19:58 → UNDODISOB 05-09 19:58
PROVIDERS: ATTEND Internal Medicine Cardiovascular Disease
DX: R07.89 Other chest pain (principal); I25.10 Atherosclerotic heart disease of native coronary artery without angina pectoris; I48.2 Chronic atrial fibrillation; E11.9 Type 2 diabetes mellitus without complications; I10 Essential (primary) hypertension; K21.9 Gastro-esophageal reflux disease without esophagitis; Z79.01 Long term (current) use of anticoagulants; Z79.899 Other long term (current) drug therapy; Z95.5 Presence of coronary angioplasty implant and graft
CPT/HCPCS: 36415; 71010; 80053; 80061; 82962; 83735; 83874; 84484; 85025; 85610; 85730; 93005; 93041; 93458; 94760; 99211; G0378

== ENCOUNTER → 2016-08-29 | Outpatient (CLI) | payer MEDICARE ==
[~2016-08-29] MED LIST changes: +APIX2.5T PO; +CALC-781 PO; +ESCI5TAB12 PO; +METO-333 PO; +PANT40SU PO
[2016-08-29 12:17] LABS: ALANINE AMINOTRANSFERASE 48 U/L (0-55); ALBUMIN 4.1 G/DL (3.2-4.5); ANION GAP 11 MMOL/L (5-14); ASPARTATE AMINO TRANSFERASE 33 U/L (5-34); BILIRUBIN,TOTAL 1.2 MG/DL (0.1-1.0); BLOOD UREA NITROGEN 12 MG/DL (7-18); BUN/CREATININE RATIO 14; CALCIUM 9.2 MG/DL (8.5-10.1); CARBON DIOXIDE 23 MMOL/L (21-32); CHLORIDE 107 MMOL/L (98-107); CREATININE SERUM 0.87 MG/DL (0.60-1.30); GFR ESTIMATED > 60; GLUCOSE 224 MG/DL (70-105); POTASSIUM 3.9 MMOL/L (3.6-5.0); SODIUM 141 MMOL/L (135-145)
== END ==
LOC: LAB 11:41
PROVIDERS: ATTEND Family Medicine
DX: E11.65 Type 2 diabetes mellitus with hyperglycemia (principal)
CPT/HCPCS: 36415; 80053; 83036

== ENCOUNTER → 2017-03-22 | Outpatient (CLI) | payer MEDICARE ==
[2017-03-22 09:56] LABS: ALANINE AMINOTRANSFERASE 28 U/L (0-55); ALBUMIN 4.2 GM/DL (3.2-4.5); ANION GAP 10 MMOL/L (5-14); ASPARTATE AMINO TRANSFERASE 17 U/L (5-34); BILIRUBIN,TOTAL 1.4 MG/DL (0.1-1.0); BLOOD UREA NITROGEN 15 MG/DL (7-18); BUN/CREATININE RATIO 18; CALCIUM 9.3 MG/DL (8.5-10.1); CARBON DIOXIDE 24 MMOL/L (21-32); CHLORIDE 106 MMOL/L (98-107); CHOLESTEROL 133 MG/DL (< 200); CREATININE SERUM 0.85 MG/DL (0.60-1.30); DIRECT LDL 78 MG/DL (1-129); GFR ESTIMATED > 60; GLUCOSE 208 MG/DL (70-105); POTASSIUM 3.7 MMOL/L (3.6-5.0); SODIUM 140 MMOL/L (135-145); TOTAL PROTEIN 7.4 GM/DL (6.4-8.2); TRIGLYCERIDES 102 MG/DL (<150); VLDL CHOLESTEROL 20 MG/DL (5-40)
== END ==
LOC: LAB 09:12
PROVIDERS: ATTEND Physician Assistant
DX: I25.10 Atherosclerotic heart disease of native coronary artery without angina pectoris (principal); I48.2 Chronic atrial fibrillation; I65.23 Occlusion and stenosis of bilateral carotid arteries; I10 Essential (primary) hypertension
CPT/HCPCS: 36415; 80053; 80061

== ENCOUNTER → 2017-08-07 | Outpatient (CLI) | payer MEDICARE ==
[2017-08-07 09:15] LABS: BASOPHILS % (AUTO) 1 % (0-10); EOSINOPHILS % (AUTO) 1 % (0-10); HEMATOCRIT 45 % (40-54); HEMOGLOBIN 16.3 G/DL (13.3-17.7); LYMPHOCYTES # (AUTO) 1.2 X 10^3 (1.0-4.0); LYMPHOCYTES % (AUTO) 20 % (12-44); MEAN CORPUSCULAR HEMOGLOBIN 31 PG (25-34); MEAN CORPUSCULAR HGB CONC 36 G/DL (32-36); MEAN CORPUSCULAR VOLUME 87 FL (80-99); MEAN PLATELET VOLUME 9.6 FL (7.4-10.4); MONOCYTES # (AUTO) 0.6 X 10^3 (0.0-1.0); MONOCYTES % (AUTO) 9 % (0-12); NEUTROPHILS # (AUTO) 4.3 X 10^3 (1.8-7.8); NEUTROPHILS % (AUTO) 70 % (42-75); PLATELET COUNT 158 10^3/uL (130-400); RED BLOOD COUNT 5.21 10^6/uL (4.35-5.85); RED CELL DISTRIBUTION WIDTH 12.8 % (10.0-14.5); WHITE BLOOD COUNT 6.1 10^3/uL (4.3-11.0)
[2017-08-07 09:38] LABS: ALANINE AMINOTRANSFERASE 45 U/L (0-55); ALBUMIN 4.4 GM/DL (3.2-4.5); ALKALINE PHOSPHATASE 70 U/L (40-136); BILIRUBIN,TOTAL 1.6 MG/DL (0.1-1.0); BUN/CREATININE RATIO 15; CALCIUM 9.4 MG/DL (8.5-10.1); CARBON DIOXIDE 27 MMOL/L (21-32); CHLORIDE 105 MMOL/L (98-107); CHOLESTEROL 122 MG/DL (< 200); CREATININE SERUM 0.79 MG/DL (0.60-1.30); GFR ESTIMATED > 60; GLUCOSE 243 MG/DL (70-105); HDL CHOLESTEROL 43 MG/DL (40-60); POTASSIUM 3.7 MMOL/L (3.6-5.0); SODIUM 140 MMOL/L (135-145); TOTAL PROTEIN 7.3 GM/DL (6.4-8.2); TRIGLYCERIDES 149 MG/DL (<150); URIC ACID 5.1 MG/DL (2.6-7.2); VLDL CHOLESTEROL 30 MG/DL (5-40)
== END ==
LOC: LAB 08:47
PROVIDERS: ATTEND Family Medicine
DX: E78.5 Hyperlipidemia, unspecified (principal); E11.65 Type 2 diabetes mellitus with hyperglycemia; I25.10 Atherosclerotic heart disease of native coronary artery without angina pectoris; M10.9 Gout, unspecified
CPT/HCPCS: 36415; 80053; 80061; 83036; 84443; 84550; 85025

== ENCOUNTER 2017-09-27 11:23 | Day surgery (SDC) | payer MEDICARE ==
[~2017-09-27] VITALS: Ht 172.7 cm; Wt 94.1 kg
[~2017-09-27 11:23] MED LIST changes: -METF1000 PO; +METF10002 PO; -METF500T4 PO; +METF500T5 PO
--- OUTSIDE RECORDS SUMMARY | 2017-09-27 11:28 | XMS REPORT | Clinical Summary ---
Author Author [facility] Organization [facility] Address Unknown Phone Unavailable Care Team Providers Care Underwriting Operations Manager Name Role Phone Laura Aragon MD PCP Source Comments Some departments are not documenting in the electronic medical record. If you do not see the information that you expected, contact Release of Information in the Health Information Management department at [phone] for further assistance in locating additional records.[facility] Allergies Active Allergy Reactions Severity Noted Date Comments Codeine ITCHING Low 09/05/2017 Hay Fever And Allergy UNKNOWN Low 08/12/2017 Relief Current Medications Prescription Sig. Disp. Refills Start End Date Status Date amLODIPine (NORVASC) 10 Take 10 mg by mouth Active mg tablet daily. finasteride (PROSCAR) 5 Take 5 mg by mouth daily. Active mg tablet atorvastatin (LIPITOR) 10 Take 10 mg by mouth Active mg tablet daily. lisinopril-hydrochlorothi Take 2 tablets by mouth Active azide (PRINZIDE, every morning. ZESTORETIC) 20-12.5 mg tablet donepezil (ARICEPT) 5 mg Take 5 mg by mouth at Active tablet bedtime daily. clopiDOGrel (PLAVIX) 75 Take 75 mg by mouth Active mg tablet daily. allopurinol (ZYLOPRIM) Take 100 mg by mouth Active 100 mg tablet daily. Take with food. metFORMIN (GLUCOPHAGE) Take 1,000 mg by mouth Active 1,000 mg tablet twice daily with meals. doxazosin (CARDURA) 4 mg Take 4 mg by mouth daily. Active tablet apixaban (ELIQUIS) 5 mg Take 5 mg by mouth twice Active tablet daily. cetirizine (ZYRTEC) 10 mg Take 10 mg by mouth every Active tablet morning. escitalopram oxalate Take 5 mg by mouth daily. Active (LEXAPRO) 5 mg tablet fluorouracil (EFUDEX) 5 % Apply topically to 08/17/19 Active topical cream affected area twice 18 daily. acetaminophen (TYLENOL) Take 500 mg by mouth Active 500 mg tablet three times daily as needed for Pain. Max of 4,000 mg of acetaminophen in 24 hours. metoprolol tartrate Take 1 tablet by mouth 08/17/19 Active (LOPRESSOR) 25 mg tablet twice daily. 18 bacitracin 500 unit/g Apply topically to 28 g 0 09/06/19 Active topical ointment affected area daily. 18 Please give tube from OR to patient. HYDROcodone/acetaminophen Take 1 tablet by mouth 15 tablet 0 09/06/19 Active (NORCO) 5/325 mg tablet every 4 hours as needed 18 for Pain docusate (COLACE) 100 mg Take 1 capsule by mouth 30 capsule 0 Active capsule twice daily. Use while 18 taking [place] pain medication cephalexin (KEFLEX) 500 Take 1 capsule by mouth 28 capsule 0 09/06/19 09/13/19 mg capsule four times daily for 7 18 18 days. Active Problems Problem Noted Date Cancer of the skin, basal cell 09/13/2017 Ear mass, left 08/12/2017 Anticoagulated 08/12/2017 Mass of left ear 08/12/2017 Overview: Added automatically from request for surgery [id number] Encounters Date Type Specialty Care Team Description 09/13/2017 Office Visit Otolaryngology Julio C Batista PA-C Cancer of the skin, basal cell 09/05/2017 Hospital Alvino Stone MD Mass of left ear Encounter 09/05/2017 Procedure Pass 09/05/2017 Surgery Alvino Stone MD PARTIAL AURICULECTOMY WITH LOCAL TISSUE RECONSTRUCTION 08/23/2017 PAC Office Anesthesiology Alvino Stone MD Preoperative Visit cardiovascular examination (Primary Dx); History of atrial fibrillation; Mass of left ear; Mass of ear auricle, unspecified laterality 08/23/2017 Hospital Radiology Alvino Stone MD Encounter 08/23/2017 Anesthesia Darcy Valerio APRN Event 08/22/2017 Telephone Otolaryngology Alvino Stone MD Surgery 08/12/2017 Hospital Lab Alvino Stone MD Other specified disorders Encounter of left ear 08/12/2017 Office Visit Otolaryngology Alvino Stone MD Mass of left ear (Primary Dx); Ear mass, left; Anticoagulated 08/12/2017 Procedure Pass Radiology 08/12/2017 Prep for Case Otolaryngology Alvino Stone MD Mass of left ear (Primary Dx) 08/09/2017 Telephone Oncology Alvino Stone MD Navigation Assessment from Last 3 Months Family History Medical History Relation Name Comments Allergy-severe Mother Blood Clots Mother Diabetes Mother Hearing Loss Mother Heart Attack Mother High Cholesterol Mother Hypertension Mother Relation Name Status Comments Mother Social History Tobacco Use Types Packs/Day Years Used Date Former Smoker Cigarettes 06 04 Quit: 1982 Smokeless Tobacco: Never Used Comments: 35 years ago Alcohol Use Drinks/Week oz/Week Comments No Sex Assigned at Date Recorded Not on file Last Filed Vital Signs Vital Sign Reading Time Taken Blood Pressure 146/84 09/13/2017 9:11 AM CDT Pulse 78 09/13/2017 9:11 AM CDT Temperature 36.4 C (97.5 F) 09/05/2017 3:30 PM CDT Respiratory Rate - - Oxygen Saturation 98% 09/05/2017 3:30 PM CDT Inhaled Oxygen - - Concentration Weight 93.9 kg (207 lb) 09/13/2017 9:11 AM CDT Height 172.7 cm (5' 8") 09/13/2017 9:11 AM CDT Body Mass Index 31.47 09/13/2017 9:11 AM CDT Plan of Treatment Health Maintenance Due Date Last Done Comments PHYSICAL (COMPREHENSIVE) 1950 EXAM PERTUSSIS VACCINE 1954 TETANUS VACCINE 02/01/1960 COLORECTAL CANCER 1993 SCREENING SHINGLES VACCINE 2003 ABDOMINAL AORTIC ANEURYSM 02/01/2008 SCREENING PREVNAR/PNEUMOVAX 02/01/2008 (retired) (#1) INFLUENZA VACCINE 02/03/2018 Procedures Procedure Name Priority Date/Time Associated Diagnosis Comments ECG-SCAN 09/09/2017 Results for this 1:31 PM CDT procedure are in the results section. ECG-SCAN 09/09/2017 Results for this 1:25 PM CDT procedure are in the results section. ADJACENT TISSUE TRANSFER 09/05/2017 Mass of left ear PEDICLE FLAP DEFECT 30.1 11:20 AM CDT - 60.0 SQ CM PARTIAL AURICULECTOMY 09/05/2017 Mass of left ear WITH LOCAL TISSUE 11:20 AM CDT RECONSTRUCTION from Last 3 Months Results * ECG-SCAN (09/09/2017 1:31 PM) Narrative Ordered by an unspecified provider. * ECG-SCAN (09/09/2017 1:25 PM) Narrative Ordered by an unspecified provider. * POC GLUCOSE (09/05/2017 2:26 PM) Only the most recent of 2 results within the time period is included. Component Value Ref Range Glucose, POC 168 (H) 70 - 100 MG/DL Specimen Performing Laboratory [facility] [address] [place] [address] * SURGICAL PATHOLOGY (09/05/2017 12:16 PM) Only the most recent of 2 results within the time period is included. Component Value Ref Range PATHOLOGY REPORT [facility] [email or web address] Department of Pathology and Laboratory Medicine [address] [place] [address] Surgical Pathology Office:[phone]:[phone] SURGICAL PATHOLOGY REPORT NAME: DEEJAY CAR RAY SURG PATH #: [id number] MR #: [id number] SPECIMEN CLASS: [facility] BILLING #: [id number] ALT ID #:LOCATION: [id number] DATE OF PROCEDURE: 09/05/2017 AGE:72 SEX: M DATE RECEIVED: 09/05/2017 : 1945 TIME RECEIVED:12:16 PHYSICIAN: ALVINO STONE DATE OF REPORT: 09/09/2017 COPY TO:DATE OF PRINTIN09/09/2017 ################################################## ###################### Final Diagnosis: A-D Surgical margins for frozen section diagnosis: -- Negative for carcinoma E. left ear, posterior auriculectomy: -- Nodular basal cell carcinoma, margins negative Attestation: By this signature, I attest that I have personally formulated the final interpretation expressed in this report and that the above diagnosis is based upon my examination of the slides and/or other material indicated in this report. +++ +++ maryjane/09/06/2017 ################################################## ###################### Material Received: A: skin margin 1200-3oclock B: skin margin 3-6 oclock C: skin margin 6-9 oclock D: skin margin 9-12 oclock E: left posterior auriculectomy stitch tanner anterior History: BCC Gross Description: A. Received fresh labeled patient's name and "skin margin 12:00 to 3:00" is a 1.0 x 0.2 x 0.2 cm rolon-white, irregular fragment of tissue. The entire specimen is submitted for frozen section consultation with the remaining being placed in cassette A1FS. (sld) B. Received fresh labeled patient's name and "skin margin 3:00 to 6:00" is a 1.0 x 0.2 x 0.2 cm rolon-white, irregular fragment of tissue. The entire specimen is submitted for frozen section consultation with the remainder being placed in cassette B1FS. (sld) C. Received fresh labeled patient's name and "skin margin 6:00 to 9:00" is a 1.2 x 0.2 x 0.2 cm rolon-white, irregular fragment of tissue. The entire specimen is submitted for frozen section consultation with the remainder being placed in cassette C1FS. (sld) D. Received fresh labeled patient's name and "skin margin 9:00 to 12:00" is a 0.8 x 0.3 x 0.3 cm rolon-white, irregular fragment of tissue. The entire specimen is submitted for frozen section consultation with the remnant being placed in cassette D1FS. (sld) E. Received fresh labeled patient's name and "left posterior auriculectomy itch tanner anterior" is a 2.3 x 2.5 x 1.3 cm rolon-white, ovular fragment of skin with a stitch marking anterior by the surgeon. On the surface of the skin is a 1.8 x 1.4 x 0.8 cm rolon-white, firm nodule. The nodule from the margins: 0.2 cm from posterior 0.2 cm from deep 0.4 cm from superior 0.5 cm from inferior 0.7 cm from anterior The specimen is inked as follows: Superior to posterior to inferior green Inferior to anterior to superior blue Deep black The specimen is serially sectioned and sequentially submitted from superior to inferior as follows: U1Nclhlysbihruy sections of superior margin. E2-H8Bhherabu between superior and inferior margin. D6Hqahrhlsvfwum sections of inferior margin. (sld) 09/05/2017 Intraoperative Consultation: A1FS, skin, "skin margin 12:00 to 3:00", biopsy: Negative for malignancy. B1FS, skin, "skin margin 3:00 to 6:00", biopsy: Negative for malignancy. C1FS, skin, "skin margin 6:00 to 9:00", biopsy: Negative for malignancy. D1FS, skin, "skin margin 9:00 to 12:00", biopsy: Negative for malignancy. Frozen section performed at the [facility], [place] [address]. Specimen Performing Laboratory [facility] * CBC (08/23/2017 9:54 AM) Component Value Ref Range White Blood Cells 5.7 4.5 - 11.0 K/UL RBC 4.84 4.4 - 5.5 M/UL Hemoglobin 15.1 13.5 - 16.5 GM/DL Hematocrit 44.0 40 - 50 % MCV 90.9 80 - 100 FL MCH 31.2 26 - 34 PG MCHC 34.3 32.0 - 36.0 G/DL RDW 13.6 11 - 15 % Platelet Count 160 150 - 400 K/UL MPV 7.6 7 - 11 FL Specimen Performing Laboratory Blood [facility] [address] [place] [address] * COMPREHENSIVE METABOLIC PANEL (08/23/2017 9:54 AM) Component Value Ref Range Sodium 132 (L) 137 - 147 MMOL/L Potassium 3.7 3.5 - 5.1 MMOL/L Chloride 101 98 - 110 MMOL/L Glucose 204 (H) 70 - 100 MG/DL Blood Urea Nitrogen 15 7 - 25 MG/DL Creatinine 0.83 0.4 - 1.24 MG/DL Calcium 9.7 8.5 - 10.6 MG/DL Total Protein 7.1 6.0 - 8.0 G/DL Total Bilirubin 1.3 (H) 0.3 - 1.2 MG/DL Albumin 4.2 3.5 - 5.0 G/DL Alk Phosphatase 62 25 - 110 U/L AST (SGOT) 19 7 - 40 U/L CO2 22 21 - 30 MMOL/L ALT (SGPT) 25 7 - 56 U/L Anion Gap 9 3 - 12 eGFR Non >60 >60 mL/min Comment: The eGFR is not validated for use in drug dosing adjustments.Continue to use estimated creatinine clearance per dosing reference text.Please contact the Clinical Pharmacist for questions. eGFR >60 >60 mL/min Comment: The eGFR is not validated for use in drug dosing adjustments.Continue to use estimated creatinine clearance per dosing reference text.Please contact the Clinical Pharmacist for questions. Specimen Performing Laboratory Blood [facility] [address] [place] [address] * CT NECK W/CONTRAST (08/23/2017 7:52 AM) Specimen Performing Laboratory [facility] RES[facility] Impressions 1.Cutaneous pedunculated nodule posterior to the left ear, biopsy-proven to be basal cell carcinoma. No invasion into the adjacent scalp or temporal bone. 2.No lymphadenopathy or additional mass. Approved by Nash Hyman M.D. on 08/23/2017 10:02 AM By my electronic signature, I attest that I have personally reviewed the images for this examination and formulated the interpretations and opinions expressed in this report Finalized by JESSICA NORTON M.D. on 08/23/2017 1:13 PM. Dictated by Nash Hyman M.D. on 08/23/2017 8:[address] Neck Clinical Indication: Male, 72 years old. Ear mass, left Technique: Multiple contiguous axial images were obtained through the neck following the administration of Isovue-370 IV contrast material. Post processing coronal and sagittal reconstruction images were made from the axial images. Comparison: None Findings: Brain and Orbits: Normal. Sinuses and Mastoids: Normal. Suprahyoid Neck: There is a cutaneous, pedunculated soft tissue nodule posterior to the left ear. It measures 1.5 x 0.8 x 0.8 cm (series 3 image 33 and series 8 image 48). The left scalp fat plane is preserved with normal underlying temporal bone. Normal nasal cavity, nasopharynx, oral cavity, oropharynx, parapharyngeal space , and retropharyngeal space. Infrahyoid Neck: Normal larynx, hypopharynx, and supraglottis. Lymph Nodes: Normal. Parotid and Submandibular Glands: Normal. Thyroid: Normal. Vasculature: Normal. Osseous Structures: Moderate cervical spondylosis. Multiple dental caries. Thoracic inlet: Normal upper lungs and mediastinum. Procedure Note Interface, Radiant Results - 08/23/2017 1:[address] Neck Clinical Indication: Male, 72 years old. Ear mass, left Technique: Multiple contiguous axial images were obtained through the neck following the administration of Isovue-370 IV contrast material. Post processing coronal and sagittal reconstruction images were made from the axial images. Comparison: None Findings: Brain and Orbits: Normal. Sinuses and Mastoids: Normal. Suprahyoid Neck: There is a cutaneous, pedunculated soft tissue nodule posterior to the left ear. It measures 1.5 x 0.8 x 0.8 cm (series 3 image 33 and series 8 image 48). The left scalp fat plane is preserved with normal underlying temporal bone. Normal nasal cavity, nasopharynx, oral cavity, oropharynx, parapharyngeal space , and retropharyngeal space. Infrahyoid Neck: Normal larynx, hypopharynx, and supraglottis. Lymph Nodes: Normal. Parotid and Submandibular Glands: Normal. Thyroid: Normal. Vasculature: Normal. Osseous Structures: Moderate cervical spondylosis. Multiple dental caries. Thoracic inlet: Normal upper lungs and mediastinum. IMPRESSION 1. Cutaneous pedunculated nodule posterior to the left ear, biopsy-proven to be basal cell carcinoma. No invasion into the adjacent scalp or temporal bone. 2. No lymphadenopathy or additional mass. Approved by Nash Hyman M.D. on 08/23/2017 10:02 AM By my electronic signature, I attest that I have personally reviewed the images for this examination and formulated the interpretations and opinions expressed in this report Finalized by JESSICA NORTON M.D. on 08/23/2017 1:13 PM. Dictated by Nash Hyman M.D. on 08/23/2017 8:27 AM. * POC CREATININE, RAD (08/23/2017 7:36 AM) Component Value Ref Range Creatinine, POC 0.8 0.4 - 1.24 MG/DL Specimen Performing Laboratory [facility] [address] [place] [address] from Last 3 Months
--- OUTSIDE RECORDS SUMMARY | 2017-09-27 11:28 | XMS REPORT | Encounter Summary ---
Author Author [facility] Organization [facility] Address Unknown Phone Unavailable Care Team Providers Care Reimbursement Consultant Name Role Phone Laura Aragon MD PCP Encounter Details Date Type Department Care Team Description 09/05/2017 Procedure Pass [facility] Operating Room [address] [place] [id number] Social History Tobacco Use Types Packs/Day Years Used Date Former Smoker Cigarettes 1 30 Quit: 1982 Smokeless Tobacco: Never Used Comments: 35 years ago Alcohol Use Drinks/Week oz/Week Comments No Sex Assigned at Date Recorded Not on file as of this encounter Plan of Treatment Not on fileas of this encounter Visit Diagnoses Not on filein this encounter
--- OUTSIDE RECORDS SUMMARY | 2017-09-27 11:28 | XMS REPORT | Encounter Summary ---
Author Author [facility] Organization [facility] Address Unknown Phone Unavailable Care Team Providers Care Clinical Application Specialist Name Role Phone Laura Aragon MD PCP Reason for Visit * Reason Comments Post Operative Visit s/p excision external ear with adjacent tissue transfer or rearrangement on 09/05/[address] Stone Encounter Details Date Type Department Care Team Description 09/13/2017 Office Visit [facility] Julio C Batista PA-C Cancer of the skin, basal Physicians - ENT [address] cell 3RD FLOOR POD [address] [place] [address] [place] [address] OFFICE BLDG [phone] [place] [address] Social History Tobacco Use Types Packs/Day Years Used Date Former Smoker Cigarettes 1 30 Quit: 1982 Smokeless Tobacco: Never Used Comments: 35 years ago Alcohol Use Drinks/Week oz/Week Comments No Sex Assigned at Date Recorded Not on file as of this encounter Last Filed Vital Signs Vital Sign Reading Time Taken Blood Pressure 146/84 09/13/2017 9:11 AM CDT Pulse 78 09/13/2017 9:11 AM CDT Temperature - - Respiratory Rate - - Oxygen Saturation - - Inhaled Oxygen - - Concentration Weight 93.9 kg (207 lb) 09/13/2017 9:11 AM CDT Height 172.7 cm (5' 8") 09/13/2017 9:11 AM CDT Body Mass Index 31.47 09/13/2017 9:11 AM CDT in this encounter Progress Notes * Julio C Batista PA-C - 09/13/2017 9:00 AM CDT HPI: Deejay Car was seen 09/13/2017 [facility] for postop follow up visit s/p excision external ear with adjacent tissue transfer or rearrangement on 09/05/[address] Stone. He is doing well. Accompanied by . No concerns. No fever. The pathology revealed Final Diagnosis: A-D Surgical margins for frozen section diagnosis: -- Negative for carcinoma E. left ear, posterior auriculectomy: -- Nodular basal cell carcinoma, margins negative PE: BP 146/84 (BP Source: Arm, Left, Patient Position: Sitting) | Pulse 78 | Ht 172.7 cm (68") | Wt 93.9 kg (207 lb) | BMI 31.47 kg/m Physical exam including head and neck as well as inspection and palpation of the face, parotid and neck is remarkable for findings consistent with posttreatment postoperative changes and negative for new lesions, masses or lymphadenopathy. Healing well. No active infection. Airway is adequate. Small crust left in place at hairline margin that is healing. IMPRESSION:Overall, Mr. Car is doing well, healing well, and appears clinically free of disease. PLAN:We will see him in [address] Stone. Pathology consistent with basal cell and was removed with clear margins. Pathology was reviewed with the pt. and a copy of their pathology report was given to them today.All questions and concerns were addressed today and the pt. was encouraged to call with any further that may arise. Pt. will need EOT. Continue close follow up with derm. in this encounter Plan of Treatment Not on fileas of this encounter Visit Diagnoses Diagnosis Cancer of the skin, basal cell Basal cell carcinoma of skin, site unspecified
--- OUTSIDE RECORDS SUMMARY | 2017-09-27 11:29 | XMS REPORT | Encounter Summary ---
Author Author [facility] Address Unknown Phone Unavailable Care Team Providers Care Loan Collector Name Role Phone Laura Aragon MD PCP Reason for Visit * Auth/Cert Status Reason Specialty Diagnoses / Referred By Referred To Procedures Contact Contact Diagnoses Mass of left ear Mass of left ear [H93.8X2] P rocedures NM EXCISION EXTERNAL EAR PARTIAL SIMPLE REPAIR NM ADJT TIS TRNS/REARGMT F/C/C/M/N/A/G/H/ F 10SQCM/< NM SPLIT AGRFT F/S/N/H/F/G/M/D GT 1ST 100 CM/</1 % EXCISION BONE EXTERNAL EAR CANAL ADJACENT TISSUE TRANSFER PEDICLE FLAP DEFECT 10 SQ CM OR LESS - AXILLA GRAFT SKIN SPLIT THICKNESS HEAD/NECK Encounter Details Date Type Department Care Team Description 09/05/2017 Anesthesia CA Operating Room [facility], [facility] Event [address] [place] [address] Anesthesia Record Procedure Name Responsible Anesthesia Start Time Anesthesia Stop Time Anesthesiologist PARTIAL AURICULECTOMY Jose Valentin MD 09/05/17 1128 09/05/17 1435 WITH LOCAL TISSUE RECONSTRUCTION (Left Ear) Date Time Event Comment 1120 AN Equip Check 2018 1127 Out of Pre Procedure 1128 Anes Start 1128 In Room 1130 An Start Data 1133 Start Supplemental O2 1136 Anesthesia Ready 1154 Proc Start 1419 an stop data 1424 Handoff to RN I completed my SBAR handoff to the receiving nurse. 1435 An Stop Meds Name Total fentaNYL PF (SUBLIMAZE) injection 175 mcg propofol (DIPRIVAN) 200 mg/ 20 mL 200 mg injection (VIAL) ondansetron (ZOFRAN) injection 4 mg propofol (DIPRIVAN) infusion 450.24 mg dexmedetomidine# (PRECEDEX) 4 mcg/mL 40 mcg injection ceFAZolin (ANCEF) injection 4 g ePHEDrine 50 mg/mL 50 mg in sodium 20 mg chloride PF 0.9% 5 mL IV syringe acetaminophen (OFIRMEV) 1,000 mg 1,000 mg injection lactated ringers infusion 700 mL * Name O2 N2O Inspired * No blood administrations on file. Type Details Placement Removal Mask 09/05/17; 1133 09/05/17 1133 by Jose Valentin MD Wounds 09/05/17; 1307; Ear; Surgical Incision; 09/05/17 1307 by Anshu, (NOT for BEHIND LEFT EAR - BACITRACIN OINTMENT THERON Stern Pressure Injuries) Peripheral 09/05/17; 0915; RN; L; Outer; Forearm; 09/05/17 0915 by Eliza , 09/05/17 1555 by Uriah, IV 18 G; 09/05/17; 1555 THERON Saavedra RN in this encounter Social History Tobacco Use Types Packs/Day Years Used Date Former Smoker Cigarettes 06 04 Quit: 1982 Smokeless Tobacco: Never Used Comments: 35 years ago Alcohol Use Drinks/Week oz/Week Comments No Sex Assigned at Date Recorded Not on file as of this encounter OR Notes * Anesthesia Postprocedure Evaluation - Jose Valentin MD - 09/05/2017 3: 38 PM CDT Post-Anesthesia Evaluation Name: Deejay Car : 1945 Age: 72 y.o. Sex: male Procedure Date: 09/05/2017 Procedure: Procedure(s) with comments: PARTIAL AURICULECTOMY WITH LOCAL TISSUE RECONSTRUCTION - CASE LENGTH 2 HOURS ADJACENT TISSUE TRANSFER PEDICLE FLAP DEFECT 30.1 - 60.0 SQ CM Surgeon: Surgeon(s): Brenda Hernández MD Bur, Alvino Sinclair MD Post-Anesthesia Vitals BP: (121-131)/(81-89) Pulse: [60-69] Respirations: [11 PER MINUTE-18 PER MINUTE] SpO2: [92 %-97 %] O2 Delivery: None (Room Air) (09/05 151) SpO2 Pulse: [59-73] Post Anesthesia Evaluation Note Evaluation location: Pre/Post Patient participation: recovered; patient participated in evaluation Level of consciousness: alert Pain score: 3 Pain management: adequate Hydration: normovolemia Temperature: 36.0C - 38.4C Airway patency: adequate Perioperative Events Perioperative events: no Post-op nausea and vomiting: no PONV Postoperative Status Cardiovascular status: hemodynamically stable Respiratory status: spontaneous ventilation Additional comments: Attestation by Jose Valentin MD: I was available during the recovery process, I participated in patient's postanesthesia care and I agree that indicated PACU care was provided today. Perioperative Events Perioperative Event: No Emergency Case Activation: No * Anesthesia Preprocedure Evaluation - Jose Valentin MD - 08/23/2017 9:16 AM CDT Formatting of this note may be different from the original. Anesthesia Pre-Procedure Evaluation Name: Deejay Car : 1945 Age: 72 y.o. Sex: male Procedure Date: 09/05/2017 Procedure: Procedure(s) with comments: EXCISION BONE EXTERNAL EAR CANAL - CASE LENGTH 2 HOURS ADJACENT TISSUE TRANSFER PEDICLE FLAP DEFECT 10 SQ CM OR LESS - AXILLA POSSIBLE SPLIT THICKNESS SKIN GRAFT HEAD/NECK Physical Assessment Vital Signs (last filed in past 24 hours): BP: 126/73 (09/05 1103) Temp: 36.4 C (97.5 F) (09/05 905) Pulse: 61 (09/05 905) SpO2: 99 % (09/05 905) O2 Delivery: None (Room Air) (09/05 905) Height: 172.7 cm (68") (09/05 905) Weight: 93.8 kg (206 lb 12.7 oz) (09/05 905) Patient History Allergies Allergen Reactions Codeine ITCHING Hay Fever And Allergy Relief UNKNOWN Current Medications Medication Directions acetaminophen (TYLENOL) 500 mg tablet Take 500 mg by mouth three times daily as needed for Pain. Max of 4,000 mg of acetaminophen in 24 hours. allopurinol (ZYLOPRIM) 100 mg tablet Take 100 mg by mouth daily. Take with food. amLODIPine (NORVASC) 10 mg tablet Take 10 mg by mouth daily. apixaban (ELIQUIS) 5 mg tablet Take 5 mg by mouth twice daily. atorvastatin (LIPITOR) 10 mg tablet Take 10 mg by mouth daily. cetirizine (ZYRTEC) 10 mg tablet Take 10 mg by mouth every morning. clopiDOGrel (PLAVIX) 75 mg tablet Take 75 mg by mouth daily. donepezil (ARICEPT) 5 mg tablet Take 5 mg by mouth at bedtime daily. doxazosin (CARDURA) 4 mg tablet Take 4 mg by mouth daily. escitalopram oxalate (LEXAPRO) 5 mg tablet Take 5 mg by mouth daily. finasteride (PROSCAR) 5 mg tablet Take 5 mg by mouth daily. fluorouracil (EFUDEX) 5 % topical cream Apply topically to affected area twice daily. lisinopril-hydrochlorothiazide (PRINZIDE, ZESTORETIC) 20-12.5 mg tablet Take 2 tablets by mouth every morning. metFORMIN (GLUCOPHAGE) 1,000 mg tablet Take 1,000 mg by mouth twice daily with meals. metoprolol tartrate (LOPRESSOR) 25 mg tablet Take 1 tablet by mouth twice daily. Past Medical History: Diagnosis Date A-fib (HCC) Angina pectoris (HCC) Anxiety Arthritis Back pain with numbness or tingling radiating down right leg Basal cell carcinoma Coronary artery disease Depression Hearing loss High cholesterol Hypertension Neuropathy Seasonal allergic reaction Squamous cell skin cancer Type 2 diabetes mellitus (HCC) Past Surgical History: Procedure Laterality Date CHOLECYSTECTOMY COLONOSCOPY with polypectomy CORONARY ANGIOPLASTY EYE SURGERY Bilateral as a child HEART CATHETERIZATION multiple HX EAR TUBES HX TONSILLECTOMY INGUINAL HERNIA REPAIR Bilateral UMBILICAL HERNIA REPAIR ~2012 Social History Social History Marital status: Spouse name: N/A Number of children: N/A Years of education: N/A Occupational History Not on file. Social History Main Topics Smoking status: Former Smoker Packs/day: 1.00 Years: 30.00 Types: Cigarettes Quit date: 1982 Smokeless tobacco: Never Used Comment: 35 years ago Alcohol use No Drug use: No Sexual activity: Not on file Other Topics Concern Not on file Social History Narrative No narrative on file Review of Systems/Medical History Patient summary reviewed Pertinent labs reviewed PONV Screening: Non-smoker No history of anesthetic complications No family history of anesthetic complications Airway - negative Pulmonary Not a current smoker (former smoker: 30 pack years, quit 1982) no COPD Shortness of breath (stable, chronic) Cardiovascular Recent diagnostic studies: ECG ECG 08/23/17: atrial fibrillation, rate 71 Exercise tolerance: >4 METS (able to walk 4-6 blocks, ascend 18-20 stairs at library without CP or dyspnea) Beta Cassie therapy: Yes Hypertension, No valvular problems/murmurs No past [place], Coronary artery disease No coronary artery bypass graft PTCA (2014): angioplasty No palpitations Dysrhythmias (metoprolol, Plavix, Eliquis); atrial fibrillation No angina (chronic, stable per cardiology note and confirmed with patient) CHF (per cardiology OV note, ECHO 2016: EF 50%) Hyperlipidemia (statin) Chest discomfort ~2016 with associated dizziness and arm sensation disturbance without recurrence since; managed by cardiology and patient reports aware, last OV 04/2017--records requested GI/Hepatic/Renal - negative No GERD, Neuro/Psych No CVA Neuropathy (RLE lumbar radiculopathy; no current treatment) Dementia (Aricept due to "slight" memory loss; no formal testing or diagnosis) Psychiatric history Depression Essential tremor left ear mass not affecting hearing Musculoskeletal Back pain Endocrine/Other Diabetes (does not check blood sugars; unaware A1c), well controlled, type 2 Malignancy (multiple skin CA with excision) Gout Physical Exam Airway Findings Mallampati: II TM distance: >3 FB Neck ROM: full Mouth opening: good Airway patency: adequate Dental Findings: Comments: Natural, missing multiple upper and lower teeth Cardiovascular Findings: Rhythm: irregular Rate: normal No murmur, no carotid bruit, no peripheral edema Pulmonary Findings: Negative Breath sounds clear to auscultation. Abdominal Findings: Not obese Abdomen soft Bowel sounds normal. Neurological Findings: Normal mental status Comments: Alert and oriented Other Findings: Alert and oriented x3 Diagnostic Tests Hematology: Lab Results Component Value Date HGB 15.1 08/23/2017 HCT 44.0 08/23/2017 PLTCT 160 08/23/2017 WBC 5.7 08/23/2017 MCV 90.9 08/23/2017 MCH 31.2 08/23/2017 MCHC 34.3 08/23/2017 MPV 7.6 08/23/2017 RDW 13.6 08/23/2017 General Chemistry: Lab Results Component Value Date NA 132 08/23/2017 K 3.7 08/23/2017 CL 101 08/23/2017 CO2 22 08/23/2017 GAP 9 08/23/2017 BUN 15 08/23/2017 CR 0.83 08/23/2017 GLU 204 08/23/2017 CA 9.7 08/23/2017 ALBUMIN 4.2 08/23/2017 TOTBILI 1.3 08/23/2017 Coagulation: No results found for: PT, PTT, INR Anesthesia Plan ASA score: 3 Plan: general Induction method: intravenous NPO status: acceptable Informed Consent Anesthetic plan and risks discussed with patient. Use of blood products discussed with patient; consented to blood products. Plan discussed with: surgeon/proceduralist, SRNA and anesthesiologist. labs: CBC, CMP, ECG LESLI: Dr. Gamboa (cardiology)--most recent OV note, most recent stress and ECHO results, clearance consult: none Patient counseled regarding adequate blood sugar control and the risk of surgical cancellation if he presents to the hospital day of surgery with a blood sugar reading >200. Patient verbalized understanding of this. Stress test 07/2015: normal left ventricular size with mild hypokinesia at inferior wall could be due to extracardiac attenuation. EF 49%. No significant ischemia or infarction seen. ECHO 06/2015: prominent left ventricle with systolic function in the lower normal limits. Estimated EF 50%, advanced diastolic dysfunction suggested by Doppler, biatrial enlargement with prominent right ventricle, mild mitral and tricuspid regurgitation, estimated PA pressure 45mmHg. cardiac cath 05/2016: small vessel disease, especially in the circumflex artery that is not amenable to intervention. LAD has moderate disease with no obstructive disease. RCA had moderate disease at proximal and distal portion. Right PDA had significant disease but also small artery not amenable to intervention. EF 60%. carotid duplex 05/2016: mild (1-39%) stenosis, nonobstructive disease bilaterally per Dr. Fung 08/26/17 (cardiology): "considered at intermediate risk for perioperative cardiac vascular complications, decision regarding the surgery, risks versus benefit is deferred to the surgeon. He may hold Eliquis for 2 days and Plavix for 5 days prior to the procedure and restarted the medication postoperatively." in this encounter Plan of Treatment Not on fileas of this encounter Visit Diagnoses Not on filein this encounter Administered Medications Medication Order MAR Action Action Date Dose Rate Site acetaminophen (OFIRMEV) injection Given 09/05/2017 1,000 mg Administer over 15 Minutes, 13:10 CDT INTRA-PROCEDURE MED, Starting Courtney 09/05/17 at 1310, Until Courtney 09/05/17 at 1435, Pain non-opioid: may be used alone or in combination with opioid analgesia, Anesthesia Intra-op ceFAZolin (ANCEF) injection Given 09/05/2017 2 g INTRA-PROCEDURE MED, Starting Courtney 09/05/17 11:52 CDT at 1152, Until Courtney 09/05/17 at 1435, Anesthesia Intra-op Given 09/05/2017 2 g 12:50 CDT dexmedetomidine (PRECEDEX) injection Given 09/05/2017 4 mcg INTRA-PROCEDURE MED, Starting Courtney 09/05/17 11:56 CDT at 1135, Until Courtney 09/05/17 at 1435, Anesthesia Intra-op Given 09/05/2017 6 mcg 11:59 CDT Given 09/05/2017 4 mcg 13:17 CDT ePHEDrine 50 mg/mL 50 mg in sodium Given - New 09/05/2017 10 mg chloride PF 0.9% 5 mL IV syringe Bag 12:28 CDT 5 mL, INTRA-PROCEDURE MED(CONT), Starting Courtney 09/05/17 at 1228, Until Courtney 09/05/17 at 1435, Anesthesia Intra-op Bolus 09/05/2017 10 mg 12:33 CDT fentaNYL citrate PF (SUBLIMAZE) Given 09/05/2017 100 mcg injection 11:34 CDT INTRA-PROCEDURE MED, Starting Courtney 09/05/17 at 1134, Until Courtney 09/05/17 at 1435, Pain Injectable, Anesthesia Intra-op Given 09/05/2017 50 mcg 11:52 CDT Given 09/05/2017 25 mcg 12:10 CDT ondansetron (ZOFRAN) injection Given 09/05/2017 4 mg Intravenous, INTRA-PROCEDURE MED, 12:12 CDT Starting Courtney 09/05/17 at 1212, Until Courtney 09/05/17 at 1435, Nausea/Vomiting Injectable, Anesthesia Intra-op propofol (DIPRIVAN) infusion Dose/Rate 09/05/2017 40 22.5 mL/hr 50 mL, Intravenous, INTRA-PROCEDURE Change 12:11 CDT mcg/kg/min MED(CONT), Starting Courtney 09/05/17 at 1150, Until Courtney 09/05/17 at 1435, Anesthesia Intra-op Dose/Rate Change 09/05/2017 50 28.1 mL/hr 12:20 CDT mcg/kg/min Dose/Rate Change 09/05/2017 20 11.3 mL/hr 12:41 CDT mcg/kg/min propofol (DIPRIVAN) injection Given 09/05/2017 20 mg INTRA-PROCEDURE MED, Starting Courtney 09/05/17 13:29 CDT at 1136, Until Courtney 09/05/17 at 1435, Anesthesia Intra-op Given 09/05/2017 10 mg 13:36 CDT Given 09/05/2017 10 mg 13:45 CDT in this encounter
--- OUTSIDE RECORDS SUMMARY | 2017-09-27 11:29 | XMS REPORT | Encounter Summary ---
Author Author [facility] Organization [facility] Address Unknown Phone Unavailable Care Team Providers Care Rigging Man Name Role Phone Laura Aragon MD PCP Reason for Visit * Auth/Cert Status Reason Specialty Diagnoses / Referred By Referred To Procedures Contact Contact Diagnoses Mass of left ear Mass of left ear [H93.8X2] P rocedures MI EXCISION EXTERNAL EAR PARTIAL SIMPLE REPAIR MI ADJT TIS TRNS/REARGMT F/C/C/M/N/A/G/H/ F 10SQCM/< MI SPLIT AGRFT F/S/N/H/F/G/M/D GT 1ST 100 CM/</1 % EXCISION BONE EXTERNAL EAR CANAL ADJACENT TISSUE TRANSFER PEDICLE FLAP DEFECT 10 SQ CM OR LESS - AXILLA GRAFT SKIN SPLIT THICKNESS HEAD/NECK Encounter Details Date Type Department Care Team Description 09/05/2017 Surgery [place] Operating Room Alvino Stone MD PARTIAL AURICULECTOMY [address] [place] [address] [place] [address] RECONSTRUCTION [phone] Social History Tobacco Use Types Packs/Day Years Used Date Former Smoker Cigarettes 06 04 Quit: 1982 Smokeless Tobacco: Never Used Comments: 35 years ago Alcohol Use Drinks/Week oz/Week Comments No Sex Assigned at Date Recorded Not on file as of this encounter Last Filed Vital Signs Vital Sign Reading Time Taken Blood Pressure 124/81 09/05/2017 3:30 PM CDT Pulse 68 09/05/2017 3:30 PM CDT Temperature 36.4 C (97.5 F) 09/05/2017 3:30 PM CDT Respiratory Rate - - Oxygen Saturation 98% 09/05/2017 3:30 PM CDT Inhaled Oxygen - - Concentration Weight 93.8 kg (206 lb 12.7 oz) 09/05/2017 9:06 AM CDT Height 172.7 cm (5' 8") 09/05/2017 9:06 AM CDT Body Mass Index 31.44 09/05/2017 9:06 AM CDT in this encounter Medications at Time of Discharge Medication Sig. Disp. Refills Start Date End Date acetaminophen (TYLENOL) Take 500 mg by mouth 500 mg tablet three times daily as needed for Pain. Max of 4,000 mg of acetaminophen in 24 hours. allopurinol (ZYLOPRIM) Take 100 mg by mouth 100 mg tablet daily. Take with food. amLODIPine (NORVASC) 10 Take 10 mg by mouth mg tablet daily. apixaban (ELIQUIS) 5 mg Take 5 mg by mouth twice tablet daily. atorvastatin (LIPITOR) 10 Take 10 mg by mouth mg tablet daily. bacitracin 500 unit/g Apply topically to 28 g 0 09/05/2017 topical ointment affected area daily. Please give tube from OR to patient. cetirizine (ZYRTEC) 10 mg Take 10 mg by mouth every tablet morning. clopiDOGrel (PLAVIX) 75 Take 75 mg by mouth mg tablet daily. docusate (COLACE) 100 mg Take 1 capsule by mouth 30 capsule 0 2017 capsule twice daily. Use while taking [place] pain medication donepezil (ARICEPT) 5 mg Take 5 mg by mouth at tablet bedtime daily. doxazosin (CARDURA) 4 mg Take 4 mg by mouth daily. tablet escitalopram oxalate Take 5 mg by mouth daily. (LEXAPRO) 5 mg tablet finasteride (PROSCAR) 5 Take 5 mg by mouth daily. mg tablet fluorouracil (EFUDEX) 5 % Apply topically to 08/16/2017 topical cream affected area twice daily. HYDROcodone/acetaminophen Take 1 tablet by mouth 15 tablet 0 2017 (NORCO) 5/325 mg tablet every 4 hours as needed for Pain lisinopril-hydrochlorothi Take 2 tablets by mouth azide (PRINZIDE, every morning. ZESTORETIC) 20-12.5 mg tablet metFORMIN (GLUCOPHAGE) Take 1,000 mg by mouth 1,000 mg tablet twice daily with meals. metoprolol tartrate Take 1 tablet by mouth 08/16/2017 (LOPRESSOR) 25 mg tablet twice daily. cephalexin (KEFLEX) 500 Take 1 capsule by mouth 28 capsule 0 201709/12/2017 mg capsule four times daily for 7 days. as of this encounter H&P Notes * Brenda Hernández MD - 09/05/2017 11:16 AM CDT Formatting of this note may be different from the original. History and Physical Update Note Allergies: Codeine and Hay fever and allergy relief Lab/Radiology/Other Diagnostic Tests: 24-hour labs: Results for orders placed or performed during the hospital encounter of (from the past 24 hour(s)) POC GLUCOSE Collection Time: 09/05/17 9:13 AM Result Value Ref Range Glucose, POC 204 (H) 70 - 100 MG/DL Point of Care Testing: (Last 24 hours): POC Glucose (Download): (!) 204 (09/05/17912) I have examined the patient, and there are no significant changes in their condition, from the previous H&P performed on 08/12/17. Brenda Hernández MD Pager * Alvino Stone MD - 08/12/2017 9:00 AM CDT Formatting of this note may be different from the original. Chief Complaint Patient presents with Mass Growth next to the ear History of Present Illness: Deejay Car is a 72 y.o. year old male evaluated on 08/12/2017, in the Otolaryngology-Head and Neck Surgery Clinic at the [facility]. The patient was referred by Dr. Aragon for evaluation of posterior ear mass on the left. He states that he has had this mass for approximately 3-4 years. His primary care doctor has referred for evaluation by decision unit rn for this as well as multiple skin lesions on the face and trunk. He has not been able to see dermatology yet. He states that the mass behind his left ear is tender to the touch, and it bleeds occasionally when rubbed. He appears to have several lesions on the face and trunk concerning for skin cancers. 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 He quit smoking greater than 30 years ago. He has never had any of his lesions biopsied. He was consented for biopsy in clinic today. Past Medical/Surgical History He has a past medical history of Angina pectoris (HCC); Arthritis; Cancer (HCC) ; DM (diabetes mellitus) (HCC); Hearing loss; High cholesterol; Hypertension; Seasonal allergic reaction; and Stroke (HCC). Past surgical history reviewed and is noncontributory. Past Family/Social History Family history reviewed and is noncontributory. He reports that he has quit smoking. His smoking use included Cigarettes. He has never used smokeless tobacco. He reports that he does not drink alcohol or use drugs. Medications/Allergies/Immunizations His current medication(s) include: Current Outpatient Prescriptions Medication Sig Dispense Refill allopurinol (ZYLOPRIM) 100 mg tablet Take 100 [...] mg by mouth daily. escitalopram oxalate (LEXAPRO) 10 mg tablet Take 10 mg by mouth daily. finasteride (PROSCAR) 5 mg tablet Take 5 mg by mouth daily. lisinopril-hydrochlorothiazide (PRINZIDE, ZESTORETIC) 20-12.5 mg tablet Take 1 tablet by mouth every morning. metFORMIN (GLUCOPHAGE) 1,000 mg tablet Take 1,000 mg by mouth twice daily with meals. metoprolol XL (TOPROL XL) 25 mg extended release tablet Take 25 mg by mouth daily. No current facility-administered medications for this visit. Allergies: Hay fever and allergy relief Review of Systems Constitutional: Negative for fever, weight loss and weight gain. Skin: Negative for rash, itchiness, dryness HENT: Negative for ear pain, sore throat and hoarseness. Negative for difficulty swallowing. Cardiovascular: Negative for chest pain and dyspnea on exertion (Can climb up 2 floors). Respiratory: Is not experiencing shortness of breath. Gastrointestinal: Negative for nausea and vomiting. Neurological: Negative for headaches. Lymph/Heme: Negative for lymphadenopathy or easy bruising Musculoskeletal: Negative for joint or muscle pain Psychiatric: The patient is not nervous/anxious. All other systems are negative except for that listed in the HPI. PHYSICAL EXAM: Vital Signs: BP (!) 156/92 | Pulse 86 | Wt 93.9 kg (207 lb) General: Well-developed, well-nourished Communication and Voice: Clear pitch and clarity Hearing: Hearing adequate for verbal communication bilaterally Inspection: Normocephalic and atraumatic. Multiple skin lesions concerning for squamous cell carcinoma including right lower cheek just anterior to parotid gland, bridge of nose left of the midline, bilateral nasal ala. He has an approximately 2 cm in greatest dimension pedunculated mass that is irregularly shaped on the posterior pinna on the left side. Palpation: Facial skeleton intact without bony stepoffs Parotid Glands: No mass or tenderness Facial Strength: Facial motility symmetric and full bilaterally Pinna: External ear intact and fully developed. Left posterior auricle with large mass as described above. External canal: Canal is patent with intact skin Tympanic Membrane: Clear and mobile External nose: No scar or anatomic deformity Internal Nose: Septum intact and midline. No edema, polyp, or rhinorrhea. TMJ: No pain to palpation with full mobility Oral cavity, Lips, Teeth, and Gums: Mucosa and teeth intact and viable, No lesions, masses or ulcers Oropharynx: No erythema or exudate, no masses or ulcerations, surgically absent tonsils Neck, Trachea, Lymphatics: Midline trachea without mass or lesion, no lymphadenopathy Thyroid: No mass or nodularity Eyes: No nystagmus with equal extraocular motion bilaterally Neuro/Psych/Balance: Patient oriented and appropriate in interaction; Appropriate mood and affect; Gait is intact with no imbalance; Cranial nerves I -XII are intact Respiratory effort: Equal inspiration and expiration without stridor Peripheral Vascular: Warm extremities with equal pulses Procedure: BIOPSY OF POSTERIOR LEFT EAR LESION Surgeon: Chase Ticket Maker: Raúl In detail: Consent was obtained and all questions were answered. 1% Lidocaine was used for local anesthetic. A punch biopsy was taken from the center of the left ear mass as described with the aid of a punch and an 11 blade. Silver nitrate was used to aid in hemostasis. The patient tolerated the procedure well. There was no blood loss. There were no complications. PATHOLOGY REVIEW: No pathology to review RADIOLOGIC REVIEW: No radiology to review IMPRESSION: My impression is that Mr. Car has multiple skin lesions on his face concerning for malignancies. He has scheduled an appointment with dermatology to evaluate most of these lesions. ENT consulted for evaluation of mass on the posterior auricle on the left given the need for extensive resection and complex reconstruction. This mass was biopsied in clinic. PLAN: Will follow up biopsy results. Given size and duration of the lesion I would like to obtain a CT neck with contrast to evaluate for any cervical lymphadenopathy. There is no clinically apparent LAD in the neck. I discussed risks of surgical excision including tumor recurrence and cosmetic deformity. Plan for surgical excision of the mass with local tissue rearrangement in the OR under general anesthesia. Tentatively scheduled for September 05. He will need to hold anticoagulation prior to surgery. Patient was encouraged to keep his dermatology appointment to assess the other skin lesions. We will hence proceed with scheduling surgery in the near future as well as order appropriate preoperative testing and evaluation prior to surgery. I believe that Mr. Car has a good understanding of the issues involved and I answered all of his questions. ATTESTATION I personally performed the E/M including history, physical exam, and MDM. Staff name: Alvino Stone MD Date: 08/12/2017 in this encounter Miscellaneous Notes * Operative Report (Direct Entry) - Alvino Stone MD - 09/05/2017 11:54 AM CDT Formatting of this note may be different from the original. Patient: Deejay Car Date of surgery: September 05, 2017 Surgeon: Alvino Stone MD Ticket Maker: Brenda Hernández MD Indications: Deejay Car is a 72 y.o. 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 He presents for surgical excision and reconstruction. Procedures: 59253 - Excision external ear; partial 87175 - Adjacent tissue transfer or rearrangement, any area; defect 30.1 sq cm to 60.0 sq cm Findings: Exophytic lesion of left postauricular skin involving middle and upper 1/3 of ear. Procedure in detail: The patient was correctly identified, and consent was noted. The patient was brought to the operating room and placed in the supine position. MAC was induced and the patient's airway was monitored throughout the case by anesthesia. The patient was positioned by anesthesia, and then was prepped and draped in a sterile fashion. A surgical time out was performed for patient safety. The ear and postauricular skin were anesthetized with 1% lidocaine with epinephrine 1:[id number] 04635 - Excision external ear; partial The left postauricular lesion was outlined with a 5mm margin of normal skin. The skin was incised with a 15 blade and dissection was carried through the perichondrium. The lesion was elevated bluntly off of the posterior cartilage of the conchal bowl. The lesion was oriented for pathology and sent for permanent pathology. Additional circumferential skin margins were taken and sent for frozen section analysis. When these were confirmed to be free of carcinoma, hemostasis was achieved using monopolar cautery. The wound was then irrigated and attention was turned to the reconstruction. 90164 - Adjacent tissue transfer or rearrangement, any area; defect 30.1 sq cm to 60.0 sq cm The posterior auricular defect was measured to be 15cm2. An inferiorly based bilobe flap was designed in the skin overlying the mastoid bone and posterior neck. This area was anesthetized with 1% lidocaine with epinephrine. The skin was incised with a 15 blade and the flap was raised sharply in a subcutaneous plane. The defect from the secondary lobe measured 8cm2 and was closed with rotation and advancement of the posterior neck skin to advance the primary and secondary lobes of the flap into the remaining defect. Next, the primary lobe was secured to the primary defect of the postauricular skin with 4-0 vicryl suture. When this was complete, the defect resulting from the primary lobe of the flap was measured to 15cm2. The secondary lobe was rotated and advanced to repair this defect. In total, the primary and secondary defects constituted an area of 38cm2. The remainder of skin closure was completed with 4-0 vicryl deep interrupted suture and 5-0 fast suture. ATTESTATION I performed this procedure with a resident. Staff name: Alvino Stone MD Date: 09/05/2017 in this encounter Plan of Treatment Name Priority Associated Diagnoses Order Schedule SURGICAL PATHOLOGY Routine Mass of left ear ONCE for 1 Occurrences starting 09/05/2017 as of this encounter Procedures Procedure Name Priority Date/Time Associated Diagnosis [...] WITH LOCAL TISSUE 11:20 AM CDT RECONSTRUCTION in this encounter Results * ECG-SCAN (09/09/2017 1:31 PM) Narrative Ordered by an unspecified provider. * ECG-SCAN (09/09/2017 1:25 PM) Narrative Ordered by an unspecified provider. * POC GLUCOSE (09/05/2017 2:26 PM) Component Value Ref Range Glucose, POC 168 (H) 70 - 100 MG/DL Specimen Performing Laboratory MAIN LAB [address] [place] [address] * SURGICAL PATHOLOGY (09/05/2017 12:16 PM) Component Value Ref Range PATHOLOGY REPORT [facility] [email or web address] Department of Pathology and Laboratory Medicine [address] [place] [address] Surgical Pathology Office:[phone]:[phone] SURGICAL PATHOLOGY REPORT NAME: DEEJAY CAR RAY SURG PATH #: [id number] MR #: [id number] SPECIMEN CLASS: [facility] BILLING #: [id number] ALT ID #:LOCATION: [id number] DATE OF PROCEDURE: [...] material indicated in this report. +++ +++ ksw/09/06/2017 ################################################## ###################### Material Received: A: skin margin [...] submitted from superior to inferior as follows: [id number] sections of superior margin. E2-W4Kdshrlen between superior and inferior margin. W3Ksybxcbrojzwt sections of inferior margin. (sld) 09/05/2017 Intraoperative Consultation: A1FS, skin, "skin margin 12:00 to 3:00", biopsy: Negative for malignancy. B1FS, skin, "skin margin 3:00 to 6:00", biopsy: Negative for malignancy. C1FS, skin, "skin margin 6:00 to 9:00", biopsy: Negative for malignancy. D1FS, skin, "skin margin 9:00 to 12:00", biopsy: Negative for malignancy. Frozen section performed at the [facility], [facility] A, [address] [place] [address]. Specimen Performing Laboratory LAB RESULTS * POC GLUCOSE (09/05/2017 9:13 AM) Component Value Ref Range Glucose, POC 204 (H) 70 - 100 MG/DL Specimen Performing Laboratory MAIN LAB [address] [place] [address] in this encounter Visit Diagnoses Diagnosis Mass of left ear Admitting Diagnoses Diagnosis Mass of left ear - Mass of left ear [H93.8X2] Administered Medications Medication Order MAR Action Action Date Dose Rate Site bacitracin topical ointment Given 09/05/2017 1 Dose INTRA-PROCEDURE MED, Starting Courtney 09/05/17 13:06 CDT at 1306, Until Courtney 09/05/17 at 1757, Intra-op diphenhydrAMINE (BENADRYL) injection 25 mg 25 mg, Intravenous, ONCE PRN, 1 dose, Starting Courtney 09/05/17 at 1226, Until Courtney 09/05/17 at 1757, Other..., nausea/vomiting, Second line agent, give if first line agent ineffective. fentaNYL citrate PF (SUBLIMAZE) Given 09/05/2017 50 mcg injection 50 mcg 14:59 CDT 50 mcg, Intravenous, EVERY 5 MIN PRN, Starting Courtney 09/05/17 at 1226, Until Courtney 09/05/17 at 1757, Pain Injectable, For Pain Score 7-10, Maximum total dose of 200 mcg Hold for RR < 10 lactated ringers infusion Given - New 09/05/2017 1,000 mL 20 mL/hr 1,000 mL, 1,000 mL, Intravenous, at 20 Bag 09:20 CDT mL/hr, CONTINUOUS, Starting Courtney 09/05/17 at 0900, Until Courtney 09/05/17 at 1757, Pre-Op Given - New Bag 09/05/2017 1,000 mL 20 mL/hr 14:59 CDT LACTATED RINGERS IV SOLP (Cabinet Override) NOW, 1 dose, Courtney 09/05/17 at 0900, Created by cabinet override lidocaine 1%/EPINEPHrine 1:100,000 Given 09/05/2017 14 mL Ear, Behind injection 11:54 CDT INTRA-PROCEDURE MED, Starting Courtney 09/05/17 at 1154, Until Courtney 09/05/17 at 1757, Intra-op lidocaine PF 1% (10 mg/mL) injection 0.1-2 mL 0.1-2 mL, Injection, NEEDED, Starting Courtney 09/05/17 at 0955, Until Courtney 09/05/17 at 1757, Other..., for IV insertion, Pre-Op metoclopramide (REGLAN) injection 10 mg 10 mg, Intravenous, ONCE PRN, 1 dose, Starting Courtney 09/05/17 at 1226, Until Courtney 09/05/17 at 1757, Other..., nausea/vomiting, First line agent. If not given in last 6 hours. oxyCODONE (ROXICODONE, OXY-IR) tablet Given 09/05/2017 10 mg 5-10 mg 14:59 CDT 5-10 mg, Oral, ONCE PRN, 1 dose, Starting Courtney 09/05/17 at 1226, Until Courtney 09/05/17 at 2359, Pain PO, For Pain Score <4, PACU (only) in this encounter
--- OUTSIDE RECORDS SUMMARY | 2017-09-27 11:29 | XMS REPORT | Encounter Summary ---
Author Author [facility] Organization [facility] Address Unknown Phone Unavailable Care Team Providers Care Nuclear Reactor Technician Name Role Phone Laura Aragon MD PCP Reason for Visit * Auth/Cert Status Reason Specialty Diagnoses / Referred By Referred To Procedures Contact Contact Diagnoses Mass of left ear Mass of left ear [H93.8X2] P rocedures UT EXCISION EXTERNAL EAR PARTIAL SIMPLE REPAIR UT ADJT TIS TRNS/REARGMT F/C/C/M/N/A/G/H/ F 10SQCM/< UT SPLIT AGRFT F/S/N/H/F/G/M/D GT 1ST 100 CM/</1 % EXCISION BONE EXTERNAL EAR CANAL ADJACENT TISSUE TRANSFER PEDICLE FLAP DEFECT 10 SQ CM OR LESS - AXILLA GRAFT SKIN SPLIT THICKNESS HEAD/NECK Encounter Details Date Type Department Care Team Description 09/05/2017 Hospital [place] Operating Room Alvino Stone MD Mass of left ear Encounter [id number] [facility] [address] [place] [address] [place] [address] [phone] Social History Tobacco Use Types Packs/Day Years Used Date Former Smoker Cigarettes 30 Quit: 1982 Smokeless Tobacco: Never Used [...] 2017 capsule twice daily. Use while taking [place] pain medication donepezil (ARICEPT) 5 mg Take [...] 24 hours): POC Glucose (Download): (!) 204 (09/05/17 4615) I have examined the patient, and there [...] Otolaryngology-Head and Neck Surgery Clinic at the [facility]. The patient was referred by Dr. Aragon for evaluation of posterior ear mass on the left. He states that he has had this mass for approximately 3-4 years. His primary care doctor has referred for evaluation by nutritional health coach for this as well as multiple skin lesions on the face and trunk. He has not been able to see dermatology yet. He states that the mass behind his left ear is tender to the touch, and it bleeds occasionally when rubbed. He appears to have several lesions on the face and trunk concerning for skin cancers. 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 He quit smoking [...] OF POSTERIOR LEFT EAR LESION Surgeon: Chase Auto Damage Appraiser: Raúl In detail: Consent was obtained and [...] September 05, 2017 Surgeon: Alvino Stone MD Auto Damage Appraiser: Brenda Hernández MD Indications: Deejay Car is a 72 y.o. 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 He presents for surgical excision and reconstruction. Procedures: 64597 - Excision external ear; partial 20143 - Adjacent tissue transfer or rearrangement, any [...] were anesthetized with 1% lidocaine with epinephrine 1:[id number] 88821 - Excision external ear; partial The left [...] and attention was turned to the reconstruction. 83490 - Adjacent tissue transfer or rearrangement, any [...] 100 MG/DL Specimen Performing Laboratory MAIN LAB [address] [place] [address] * SURGICAL PATHOLOGY (09/05/2017 12:16 PM) Component Value Ref Range PATHOLOGY REPORT [facility] [email or web address] Department of Pathology and Laboratory Medicine [address] [place] [address] Surgical Pathology Office:[phone]:[phone] SURGICAL PATHOLOGY REPORT NAME: DEEJAY CAR RAY SURG PATH #: [id number] MR #: [id number] SPECIMEN CLASS: [facility] BILLING #: [id number] ALT ID #:LOCATION: [facility] DATE OF PROCEDURE: 09/05/2017 AGE:72 SEX: M [...] submitted from superior to inferior as follows: Q0Urjkssqczbhrq sections of superior margin. E2-P1Buhcvlbd between superior and inferior margin. V1Wmxztdgwlalpd sections of inferior margin. (sld) 09/05/2017 Intraoperative Consultation: A1FS, skin, "skin margin 12:00 to 3:00", biopsy: Negative for malignancy. B1FS, skin, "skin margin 3:00 to 6:00", biopsy: Negative for malignancy. C1FS, skin, "skin margin 6:00 to 9:00", biopsy: Negative for malignancy. D1FS, skin, "skin margin 9:00 to 12:00", biopsy: Negative for malignancy. Frozen section performed at the [facility], [facility] A, [address] [place] [address]. Specimen Performing Laboratory LAB RESULTS * POC GLUCOSE (09/05/2017 9:13 AM) Component Value Ref Range Glucose, POC 204 (H) 70 - 100 MG/DL Specimen Performing Laboratory MAIN LAB [address] [place] [address] in this encounter Visit Diagnoses Diagnosis Ear mass, left - Primary Mass of left ear Admitting Diagnoses Diagnosis [...]
--- OUTSIDE RECORDS SUMMARY | 2017-09-27 11:29 | XMS REPORT | Encounter Summary ---
Author Author [facility] Organization [facility] Address Unknown Phone Unavailable Care Team Providers Care Barrel Bridge Assembler Name Role Phone Laura Aragon MD PCP Encounter Details Date Type Department Care Team Description 08/23/2017 PAC Office Preoperative Assessment Alvino Stone MD Preoperative Visit Clinic [address] [facility] cardiovascular [address] [place] [address] examination (Primary Dx); [place] [address] History of atrial [phone] fibrillation; Mass of left ear; Mass of ear auricle, unspecified laterality Anesthesia Record Procedure Name Responsible Anesthesia Start Time Anesthesia Stop Time Anesthesiologist PARTIAL AURICULECTOMY Jsoe Valentin MD 09/05/17 1128 09/05/17 1435 WITH [...] the receiving nurse. 1435 An Stop Meds * No agents on file. * No blood administrations on file. Type Details Placement Removal Mask 09/05/17; 1133 09/05/17 1133 by Jose Valentin MD Wounds 09/05/17; 1307; Ear; Surgical Incision; 09/05/17 1307 by Anshu, (NOT for BEHIND LEFT EAR - BACITRACIN OINTMENT THERON Stern Pressure Injuries) Peripheral 09/05/17; 0915; RN; L; Outer; Forearm; 09/05/17 0915 by Eliza , 09/05/17 1555 by LARRY Kruse 18 G; 09/05/17; 1555 THERON Saavedra RN in this encounter Social History Tobacco Use Types Packs/Day Years Used Date Former Smoker Cigarettes 06 04 Quit: 1982 Smokeless Tobacco: Never Used Comments: 35 years ago Alcohol Use Drinks/Week oz/Week Comments No Sex Assigned at Date Recorded Not on file as of this encounter Last Filed Vital Signs Vital Sign Reading Time Taken Blood Pressure 117/64 08/23/2017 8:08 AM CDT Pulse 67 08/23/2017 8:08 AM CDT Temperature 36.6 C (97.9 F) 08/23/2017 8:08 AM CDT Respiratory Rate - - Oxygen Saturation 98% 08/23/2017 8:08 AM CDT Inhaled Oxygen - - Concentration Weight 93.3 kg (205 lb 9.6 oz) 08/23/2017 8:08 AM CDT Height 174 cm (5' 8.5") 08/23/2017 8:08 AM CDT Body Mass Index 30.81 08/23/2017 8:08 AM CDT in this encounter Instructions * Pre-Anesthesia Patient Instructions - Rere Sawyer RN - 08/23/2017 9:02 AM CDT GENERAL INFORMATION Before you come to the hospital Make arrangements for a responsible adult to drive you home and stay with you for 24 hours following surgery. Bath/Shower Instructions Take a bath or shower using the special soap given to you in PAC. Use half the bottle the night before, and the other half the morning of your procedure. Use clean towels with each bath or shower. Put on clean clothes after bath or shower. Avoid using lotion and oils. If you are having surgery above the waist, wear a shirt that fastens up the front. Sleep on clean sheets if bath or shower is done the night before procedure. Leave money, credit cards, jewelry, and any other valuables at home. [facility] is not responsible for the loss or breakage of personal items. Remove nail sierra leonean, makeup and all jewelry (including piercings) before coming to the hospital. The morning of your procedure: brush your teeth and tongue do not smoke do not shave the area where you will have surgery What to bring to the hospital ID/ Insurance Card Lifestyle Director card Official documents for legal guardianship Copy of your Living Will, Advanced Directives, and/or Durable Power of Social Media Developer Small bag with a few personal belongings Cases for glasses/hearing aids/contact lens (bring solutions for contacts) Dress in clean, loose, comfortable clothing Eating or drinking before surgery Do not eat or drink anything after 11:00 p.m. the day before your procedure ( including gum, mints, candy, or chewing tobacco) OR follow the specific instructions you were given by your Surgeon. You may have WATER ONLY up to 2 hours before arriving at the hospital. Other instructions Notify your surgeon if: you become ill with a cough, fever, sore throat, nausea, vomiting or flu- like symptoms you have any open wounds/sores that are red, painful, draining, or are new since you last saw the doctor you need to cancel your procedure Notify us at [facility]: if you need to cancel your procedure if you are going to be late Arrival at the [facility] A: ? Park in the P5 parking garage located at [address] [place] [address] (Next to the [facility] A [address] [place] [address]). ? Zinc Plating Machine Operator parking is available in front of [facility] between the hours of 7:00 am and 4:00 pm Saturday through Saturday. ? If parking in the P5 garage, take the east elevators in the parking garage to the second level and walk to the entrance of the [facility]. ? Enter through the 1st floor main entrance and check in with Information Desk. ? You will be contacted by the surgery office between 2:30 pm and 4:30 pm on the last business day before your procedure to advise you of your arrival time. If you do not receive a call, you may call the Preoperative Assessment Clinic to confirm your arrival time. Before 4:30 pm, call [phone], and after 4:30 pm, call [phone]. * Pre-Anesthesia Medication Instructions - Dylan Lucia, YANELIS - 08/23/2017 8:11 AM CDT Formatting of this note may be different from the original. YOUR MEDICATIONS: acetaminophen (TYLENOL) 500 mg tablet Take 500 [...] Take 1 tablet by mouth twice daily. YOUR MEDICATION INSTRUCTIONS FOR SURGERY: Before surgery Do not start any new vitamins, herbals, or natural supplements before surgery. Stop the following medications 7 days before surgery: Anti-inflammatory medications such as ibuprofen (Advil, Motrin) and naproxen (Aleve) You may use acetaminophen (Tylenol) Please follow these instructions regarding your blood thinner medications: Plavix and Eliquis - we will call you with instructions. (Per clearance letter from Dr. Fung, Eliquis may be held for 2 days prior to the procedure (last dose 09/02/2017) and Plavix may be held for 5 days prior to the procedure. ( last dose 08/30/2017) - CC Morning of surgery On the morning of surgery, do NOT take these medications: Ointments/creams/lotions Lisinopril/HCTZ Metformin Allopurinol New diabetic pill On the morning of surgery, take ONLY these medications with a sip (1-2 ounces) of water: Amlodipine Atorvastatin Cetrizine Doxazosin Escitalopram Finasteride Metoprolol (if this is a medication you take in the morning) Other information Before surgery, please contact the clinic pharmacist with any medicine updates or questions. E-mail: [email or web address] Before going home from the hospital, please ask your doctor when you should re- start your medicines that were stopped before surgery. in this encounter Progress Notes * Dylan Lucia, YANELIS - 08/23/2017 8:00 AM CDT PAC Pharmacist Medication Plan Note: Deejay Car was seen in the PAC on 08/23/2017. As part of the visit, an accurate medication list was obtained and the patient was given pre-op medication instructions for upcoming surgery on 09/05/2017. Per clearance letter from Dr. Fnug, Eliquis may be held for 2 days prior to the procedure and Plavix may be held for 5 days prior to the procedure. The plan above was communicated to the patient who verbalized understanding. Dylan Lucia PHARMD in this encounter Plan of Treatment Name Priority Associated Diagnoses Order Schedule ECG 12-LEAD Routine Preoperative Expected: 08/23/2017, cardiovascular Expires: 08/23/2018 examination History of atrial fibrillation Mass of left ear as of this encounter Results * COMPREHENSIVE METABOLIC PANEL (08/23/2017 9:54 AM) [...] Performing Laboratory [facility] [address] [place] [address] * CBC (08/23/2017 9:54 AM) Component Value [...] Performing Laboratory [facility] [address] [place] [address] in this encounter Visit Diagnoses Diagnosis Preoperative cardiovascular examination - Primary Pre-operative cardiovascular examination History of atrial fibrillation Personal history of other diseases of circulatory system Mass of left ear Mass of ear auricle, unspecified laterality
--- OUTSIDE RECORDS SUMMARY | 2017-09-27 11:29 | XMS REPORT | Encounter Summary ---
Author Author [facility] Organization [facility] Address Unknown Phone Unavailable Care Team Providers Care Production Or Plant Engineer Name Role Phone Laura Aragon MD PCP Reason for Visit * Reason Comments Surgery Encounter Details Date Type Department Care Team Description 08/22/2017 Telephone [facility] Alvino Stone MD Surgery Physicians - ENT [address] [place] [address] MED [phone] [place] [address] Social History Tobacco Use Types Packs/Day Years Used Date Former Smoker Cigarettes Smokeless Tobacco: Never Used Comments: 35 years ago Alcohol Use Drinks/Week oz/Week Comments No Sex Assigned at Date Recorded Not on file as of this encounter Miscellaneous Notes * Telephone Encounter - Minal LouiseARAM - 08/22/2017 12:32 PM CDT Patient wanting to know what time his surgery was on September 05, [address] Stone. Explained that he would be getting a call late in the day the day before about the time and where to check in. Understanding verbalized. in this encounter Plan of Treatment Not on fileas of this encounter Visit Diagnoses Not on filein this encounter
--- OUTSIDE RECORDS SUMMARY | 2017-09-27 11:29 | XMS REPORT | Encounter Summary ---
Author Author [facility] Organization [facility] Address Unknown Phone Unavailable Care Team Providers Care Beam Sealer Name Role Phone Laura Aragon MD PCP Encounter Details Date Type Department Care Team Description 08/12/2017 [facility] MD Other specified disorders Encounter [address] [place] [address] [place] [address] [phone] Social History Tobacco Use Types Packs/Day Years Used Date Former Smoker Cigarettes Smokeless Tobacco: Never Used Comments: 35 years ago Alcohol Use Drinks/Week oz/Week Comments No Sex Assigned at Date Recorded Not on file as of this encounter Medications at Time of Discharge Medication Sig. Disp. Refills Start Date End Date allopurinol (ZYLOPRIM) Take 100 mg by mouth [...] 2017 capsule twice daily. Use while taking [place] pain medication donepezil (ARICEPT) 5 mg Take 5 mg by mouth at tablet bedtime daily. doxazosin (CARDURA) 4 mg Take 4 mg by mouth daily. tablet finasteride (PROSCAR) 5 Take 5 mg by mouth daily. mg tablet HYDROcodone/acetaminophen Take 1 tablet by mouth 15 tablet 0 2017 (NORCO) 5/325 mg tablet every 4 hours as needed for Pain lisinopril-hydrochlorothi Take 2 tablets by mouth azide (PRINZIDE, every morning. ZESTORETIC) 20-12.5 mg tablet metFORMIN (GLUCOPHAGE) Take 1,000 mg by mouth 1,000 mg tablet twice daily with meals. cephalexin (KEFLEX) 500 Take 1 capsule by mouth 28 capsule 0 201709/12/2017 mg capsule four times daily for 7 days. escitalopram oxalate Take 10 mg by mouth 08/23/2017 (LEXAPRO) 10 mg tablet daily. metoprolol XL (TOPROL XL) Take 25 mg by mouth at 08/27/2017 25 mg extended release bedtime daily. tablet as of this encounter Plan of Treatment Not on fileas of this encounter Results * SURGICAL PATHOLOGY (08/12/2017 1:52 PM) Component Value Ref Range PATHOLOGY REPORT [facility] [email or web address] Department of Pathology and Laboratory Medicine [address] [place] [address] Surgical Pathology Office:[phone]:[phone] SURGICAL PATHOLOGY REPORT NAME: DEEJAY CAR SURG PATH #: [id number] MR #: [id number] SPECIMEN CLASS: SR BILLING #: [id number] ALT ID #:LOCATION: ENT DATE OF PROCEDURE: 08/12/2017 AGE:72 SEX: M DATE RECEIVED: 08/12/2017 : 1945 TIME RECEIVED:13:52 PHYSICIAN: ALVINO STONE DATE OF REPORT: 08/13/2017 COPY TO:DATE OF PRINTIN08/13/2017 ################################################## ###################### Final Diagnosis: A. Skin, "left ear mass", biopsy: Basal cell carcinoma, nodular type, transected and extending to edges of biopsy tissue. Attestation: By this signature, I attest that I have personally formulated the final interpretation expressed in this report and that the above diagnosis is based upon my examination of the slides and/or other material indicated in this report. +++ +++ dn/08/13/2017 ################################################## ###################### Material Received: A: left ear mass History: 72-year-old male with history of ear mass Gross Description: A. Received in formalin, labeled with the patient's name and "left ear mass" is a 0.5 x 0.5 x 0.3 cm irregular, red-brown rubbery tissue fragment. The specimen is entirely submitted in cassette A1. (lmt) lt08/12/2017 Specimen Performing Laboratory [facility] RESULTS in this encounter Visit Diagnoses Not on filein this encounter Admitting Diagnoses Diagnosis Other specified disorders of left ear
--- OUTSIDE RECORDS SUMMARY | 2017-09-27 11:29 | XMS REPORT | Encounter Summary ---
Author Author [facility] Organization [facility] Address Unknown Phone Unavailable Care Team Providers Care Vice President Fixed Income Name Role Phone Laura Aragon MD PCP Encounter Details Date Type Department Care Team Description 08/12/2017 Procedure Pass [facility] Radiology [address] [facility] [address] [place] [address] Social History Tobacco Use Types Packs/Day Years [...]
--- OUTSIDE RECORDS SUMMARY | 2017-09-27 11:29 | XMS REPORT | Encounter Summary ---
Author Author [facility] Organization [facility] Address Unknown Phone Unavailable Care Team Providers Care Master Hearth Technician Name Role Phone Laura Aragon MD PCP Reason for Referral * Radiology Services (Routine) Status Reason Specialty Diagnoses / Referred By Referred To Procedures Contact Contact Closed Radiology Diagnoses Alvino Stone Mob Ct Mass of left ear MD [address] [facility] [address] [place], [place] W/[place]AST [address] Phone: Fax: * Radiology Services (Routine) Status Reason Specialty Diagnoses / Referred By Referred To Procedures Contact Contact Closed Radiology Diagnoses Alvino Stone Mob Ct Mass of left ear MD [address] [place] [facility] [address] [place], [place] [address] Phone: Fax: Reason for Visit * Radiology Services (Routine) Status Reason Specialty Diagnoses / Referred By Referred To Procedures Contact Contact Closed Radiology Diagnoses Alvino Stone Mob Ct Mass of left ear MD [address] MED [address] [place], [place] [address] Phone: Fax: Encounter Details Date Type Department Care Team Description 08/23/2017 Hospital [facility] Alvino Stone MD Encounter Hospital Radiology [address] [place] [address] OFFICE [address]LDG [phone] [address] [place] [address] Social History Tobacco Use Types [...] 2017 capsule twice daily. Use while taking [place] pain medication donepezil (ARICEPT) 5 mg Take [...] capsule four times daily for 7 days. metoprolol XL (TOPROL XL) Take 25 mg by mouth at 08/27/2017 25 mg extended release bedtime daily. tablet as of this encounter Plan of Treatment Not on fileas of this encounter Results * CT NECK W/CONTRAST (08/23/2017 7:52 AM) [...] 0.4 - 1.24 MG/DL Specimen Performing Laboratory [facility] [address] [place] [address] in this encounter Visit Diagnoses Diagnosis Mass of left ear Administered Medications Medication Order MAR Action Action Date Dose Rate Site iopamidol 370 (ISOVUE-370) injection 80 Given 08/23/2017 80 mL mL 07:53 CDT 80 mL, Intravenous, ONCE, 1 dose, Sat08/23/17 at 0800, NOTE: This is a HIGH ALERT Medication. sodium chloride PF 0.9% injection 50 mL Given 08/23/2017 50 mL 50 mL, Intravenous, ONCE, 1 dose, Sat 07:53 CDT 08/23/17 at 0800, Intra-procedure (IR) in this encounter
--- OUTSIDE RECORDS SUMMARY | 2017-09-27 11:30 | XMS REPORT | Encounter Summary ---
Author Author [facility] Organization [facility] Address Unknown Phone Unavailable Care Team Providers Care Operations Executive Name Role Phone Laura Aragon MD PCP Encounter Details Date Type Department Care Team Description 08/12/2017 Prep for Case [facility] Alvino Stone MD Mass of left ear (Primary Physicians - ENT [address]) [address] [place] [address] MED [phone] [place] [address] Social History Tobacco Use Types Packs/Day Years Used Date Former Smoker Cigarettes Smokeless Tobacco: Never Used Comments: 35 years ago Alcohol Use Drinks/Week oz/Week Comments No Sex Assigned at Date Recorded Not on file as of this encounter Plan of Treatment Not on fileas of this encounter Visit Diagnoses Diagnosis Mass of left ear - Primary
--- OUTSIDE RECORDS SUMMARY | 2017-09-27 11:30 | XMS REPORT ---
Author KATALINA Garcias Organization [employer] Address Unknown Phone Unavailable Care Team Providers Care Time Signal Wirer Name Role Phone KATALINA HERNANDEZ CP Unavailable Allergies, Adverse Reactions, Alerts Substance Reaction Event Type Codeine Sulfate Info Not Available Drug Allergy Problems Problem Type Condition Code Onset Dates Condition Status Assessment Dental examination Z01.20 Active Medications Medication Code System Code Instructions Start Date End Date Status Dosage Amlodipine Besylate [facility] [address]-57 not defined Allopurinol [facility] [address]-54 not defined Clopidogrel Bisulfate [facility] [address]-29 not defined Escitalopram &[id number]-D ND 0 not defined Finasteride [facility] [address]-07 not defined Doxazosin Mesylate [facility] [address]-80 not defined Lisinopril [facility] [address]-29 not defined Cetirizine HCl [facility] [address]-77 not defined Metoprolol Tartrate [facility] [address]-92 not defined Atorvastatin Calcium [facility] [address]-60 not defined Ranexa [facility] [address]-06 not defined Clindamycin HCl [facility] [address]-84 not defined Metformin HCl [facility] [address]-51 not defined Donepezil Hydrochloride [facility] [address]-61 not defined Eliquis [facility] [address]-75 not defined Procedures Procedure Coding System Code Date Billing Notes on claim CPT-4 EC109 November 08, 2015 LTD ORAL EVALUATION - PROBLEM FOCUS CPT-4 D0140 November 08, 2015 Vital Signs Date/Time: November 08, 2015 Blood Pressure Diastolic 68 mmHg Blood Pressure Systolic 121 mmHg Results No Known Results Summary Purpose [employer] Submission
--- OUTSIDE RECORDS SUMMARY | 2017-09-27 11:30 | XMS REPORT | Encounter Summary ---
Author Author [facility] Organization [facility] Address Unknown Phone Unavailable Care Team Providers Care Solar Thermal Technician Name Role Phone PCP Unavailable Reason for Visit * Reason Comments Navigation Assessment Encounter Details Date Type Department Care Team Description 08/09/2017 Telephone [facility] Alvino Stone MD Navigation Assessment [facility] [address] [place] [address] [place] [address] [phone] Social History Tobacco Use Types Packs/Day Years Used Date Never Assessed Sex Assigned at Date Recorded Not on file as of this encounter Miscellaneous Notes * Telephone Encounter - Jo Ann Solo RN - 08/09/2017 9:39 AM CDT Navigation Intake Assessment Document Patient Name: Deejay Car : 1945 Insurance: [employer] PPO Appointment Info: 08/12/[address] Stone Diagnosis & Reason for Visit: Skin lesion left postauricular area Physician Info: Referring Physician: Laura Aragon Contact Name & Number: Maki [phone] Sales Support Rep: Thomas Fung in [place], [place] [phone], last seen 03/2017 Location of Films: none Location of Pathology: none History of Present Illness: 72 yr old male presented to his PCP with a skin lesion located in left postauricular area. Pt states this has been present for approximately 2 years and now measures 2 cm. It is described as exophytic and pt states it bleeds if his clothing rubs against it. No biopsy has been performed. Has had previous skin cancer removed from nose. Pt is taking Eliquis and Plavix, has a history of angioplasty. Pt states he has "small blood vessel disease" and follows with manager ethics. (requested last OV note from cardiololgy) Prior Treatment (XRT, Surgery, Chemotherapy): none Comments: Pt is , states is pt with urology. 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 in this encounter Plan of Treatment Not on fileas of this encounter Visit Diagnoses Not on filein this encounter
--- OUTSIDE RECORDS SUMMARY | 2017-09-27 11:30 | XMS REPORT | Encounter Summary ---
Author Author [facility] Organization [facility] Address Unknown Phone Unavailable Care Team Providers Care Coal Trimmer Name Role Phone Laura Aragon MD PCP Reason for Referral * Radiology Services (Routine) Status Reason Specialty Diagnoses / Referred By Referred To Procedures Contact Contact Closed Radiology Diagnoses Alvino Stone Mob Ct Mass of left ear [address] NECK [place], [place] W/CONTRAST [id number] Phone: Fax: Reason for Visit * Reason Comments Mass Growth next to the ear * Consult, Test & Treat (Routine) Status Reason Specialty Diagnoses / Referred By Referred To Procedures Contact Contact No Auth Needed Otolaryngology Procedures Alvino Stone MD NEW PATIENT [address] [place] [address] Encounter Details Date Type Department Care Team Description 08/12/2017 Office Visit [facility] Alvino Stone MD Mass of left ear (Primary Physicians - ENT [address] Dx); 3RD [place] [address] Ear mass, left; [address] MED [phone] Anticoagulated [place] [phone] Social History Tobacco Use Types Packs/Day Years Used Date Former Smoker Cigarettes Smokeless Tobacco: Never Used Comments: 35 years ago Alcohol Use Drinks/Week oz/Week Comments No Sex Assigned at Date Recorded Not on file as of this encounter Last Filed Vital Signs Vital Sign Reading Time Taken Blood Pressure 156/92 08/12/2017 11:10 AM CDT Pulse 86 08/12/2017 11:10 AM CDT Temperature - - Respiratory Rate - - Oxygen Saturation - - Inhaled Oxygen - - Concentration Weight 93.9 kg (207 lb) 08/12/2017 11:10 AM CDT Height - - Body Mass Index - - in this encounter Instructions * Patient Instructions - Minal Louise LPN - 08/12/2017 9:00 AM CDT General Instructions for Surgery Patients Your Surgery is scheduled for September 05, [address] Alvino Stone Preparing for Surgery ? Hold Vitamin E, Vitamin A, Fish oil, multivitamin, and herbal supplements for 14 days prior to surgery. Hold Ibuprofen (Advil, Motrin), Naproxen (Aleve), and any other Non-Steroidal Anti-inflammatory medications for 7 days prior to surgery. If you take aspirin or any blood thinners, please contact the prescribing physician for recommendation regarding holding these medications prior to surgery. Do not stop taking any heart medications or aspirin without seeking the Approval of your Guest Services Agent. ? Refrain from smoking two weeks before and two weeks after surgery. Nicotine and tobacco smoke delays healing and can result in scarring. This is the perfect time to give up the habit. ? Do not eat or drink anything, including water, after midnight the night before your Surgery. ? Arrange for someone to take you home from the hospital. You will not be allowed to drive or leave alone. Arrange to have someone to be with you the first 24 hours following surgery. You will receive a call from a Surgery Coordinator, by late afternoon the day before surgery. You may reach her by calling . Your surgery is scheduled at [facility]. Park in the parking garage off of [facility] [address]. Enter the [facility] through the 1st floor main entrance. Check in with admitting on 1st floor. Please park on the [place] of the Building in the [address]. Once you enter the building, you should be facing the Information Desk. Proceed to the Admissions Office, located on the ground floor, to the left of the Information Desk. The Day of Surgery ? Do not eat or drink anything, including water, after midnight the morning of surgery. Essential medication may be taken with a sip of water. ? Wear loose-fitting clothes that fasten in front or back. Avoid clothing that pulls over your head. ? Leave all valuables at home; do not wear jewelry. ? Do not wear any facial or eye make-up. Avoid nail algerian. ? You may wear glasses but do not wear contact lenses. ? If you wear dentures, keep them in. ? Bring ID and insurance card with you. DONT TAKE CHANCES! If you are concerned about anything you consider significant, call us at [phone] business hours, ask for your nurse , Minal, or the on-call nurse. After hours ask to speak to the ENT doctor technician semiconductor development. in this encounter Progress Notes * Alvino Stone MD - 08/12/2017 9:00 AM CDT Formatting of this note may be different from the original. Chief Complaint Patient presents with Mass Growth next to the ear History of Present Illness: Deejay Car is a 72 y.o. year old male evaluated on 08/12/2017, in the Otolaryngology-Head and Neck Surgery Clinic at the [facility]. The patient was referred by Dr. Aragon for evaluation of posterior ear mass on the left. He states that he has had this mass for approximately 3-4 years. His primary care doctor has referred for evaluation by fishing game warden for this as well as multiple skin lesions on the face and trunk. He has not been able to see dermatology yet. He states that the mass behind his left ear is tender to the touch, and it bleeds occasionally when rubbed. He appears to have several lesions on the face and trunk concerning for skin cancers. 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 He [...] OF POSTERIOR LEFT EAR LESION Surgeon: Chase Window Display Designer: Raúl In detail: Consent was obtained and [...] Stone MD Date: 08/12/2017 in this encounter Plan of Treatment Name Priority Associated Diagnoses Order Schedule PATHOLOGY SURGICAL < 5 SPECIMENS Routine Mass of left ear ONE TIME starting 08/12/2017 as of this encounter Results * CT NECK [...] Nash Hyman M.D. on 08/23/2017 8:27 AM. in this encounter Visit Diagnoses Diagnosis Mass of left ear - Primary Ear mass, left Anticoagulated Long-term (current) use of anticoagulants"
--- OUTSIDE RECORDS SUMMARY | 2017-09-27 11:30 | XMS REPORT ---
Author KATALINA Garcias Organization [employer] Address Unknown Phone Unavailable Care Team Providers Care Medical Assistant Instructor Name Role Phone KATALINA HERNANDEZ CP Unavailable Allergies, Adverse Reactions, Alerts Substance Reaction Event Type Codeine Sulfate Info Not Available Drug Allergy Problems Problem Type Condition Code Onset Dates Condition Status Assessment Dental examination Z01.20 Active Medications Medication Code System Code Instructions Start Date End Date Status Dosage Doxazosin Mesylate [facility] [address]-20 not defined Atorvastatin Calcium [facility] [address]-21 not defined Lisinopril [facility] [address]-64 not defined Eliquis [facility] [address]-87 not defined Clindamycin HCl [facility] [address]-41 not defined Metoprolol Tartrate [facility] [address]-40 not defined Finasteride [facility] [address]-69 not defined Allopurinol [facility] [address]-08 not defined Clopidogrel Bisulfate [facility] [address]-01 not defined Cetirizine HCl [facility] [address]-92 not defined Ranexa [facility] [address]-46 not defined Amlodipine Besylate [facility] [address]-77 not defined Donepezil Hydrochloride [facility] [address]-00 not defined Metformin HCl [facility] [address]-20 not defined Escitalopram &Kdmszex-J4-T82-D ND 0 not defined Procedures Procedure Coding System Code Date INTRAORL-PERIAPICAL 1 FILM 01139 CPT-4 D0220 October 17, 2015 LTD ORAL EVALUATION - PROBLEM FOCUS CPT-4 D0140 October 17, 2015 Vital Signs Date/Time: October 17, 2015 Blood Pressure Diastolic 87 mmHg Blood Pressure Systolic 137 mmHg Results No Known Results Summary Purpose [employer] Submission
--- OUTSIDE RECORDS SUMMARY | 2017-09-27 11:31 | XMS REPORT ---
Author KATALINA Garcias Organization [employer] Address Unknown Phone Unavailable Care Team Providers Care Policy Change Clerk Name Role Phone KATALINA HERNANDEZ CP Unavailable Allergies, Adverse Reactions, Alerts Substance Reaction Event Type Codeine Sulfate Info Not Available Drug Allergy Problems Problem Type Condition Code Onset Dates Condition Status Assessment Dental caries K02.9 Active Medications Medication Code System Code Instructions Start Date End Date Status Dosage Allopurinol [facility] [address]-55 not defined Donepezil Hydrochloride [facility] [address]-73 not defined Clindamycin HCl [facility] [address]-82 not defined Metoprolol Tartrate [facility] [address]-22 not defined Amlodipine Besylate [facility] [address]-14 not defined Doxazosin Mesylate [facility] [address]-77 not defined Cetirizine HCl [facility] [address]-69 not defined Finasteride [facility] [address]-30 not defined Ranexa [facility] [address]-04 not defined Escitalopram &Gynzzpz-I2-E68-D ND 0 not defined Eliquis [facility] [address]-46 not defined Lisinopril [facility] [address]-05 not defined Atorvastatin Calcium [facility] [address]-65 not defined Metformin HCl [facility] [address]-10 not defined Clopidogrel Bisulfate [facility] [address]-80 not defined Procedures Procedure Coding System Code Date EXTRAC ERUPTED TOOTH/EXPOSED ROOT CPT-4 D7140 November 30, 2015 Vital Signs Date/Time: November 30, 2015 Blood Pressure Diastolic 69 mmHg Blood Pressure Systolic 127 mmHg Results No Known Results Summary Purpose [employer] Submission
[2017-09-27] MEDS ORDERED: NS IV 500 ML 500 ML ONE (11:32)
[2017-09-27] MEDS ORDERED: LIDOCAINE JELLY 2% (XYLOCAINE) 5 ML TUBE ONE (11:49)
[2017-09-27] MEDS ORDERED: MIDAZOLAM 2 MG/2 ML (VERSED) VIAL ONE ×5 (11:50)
[2017-09-27] MEDS ORDERED: fentaNYL INJECTION 100 MCG/2 ML AMP ONE (11:50)
--- NOTE | 2017-09-27 11:50 | Conscious Sedation/ASA ---
Conscious Sedation Pre-Proced Time Reviewed: 11:45 ASA Class: 2 Airway Mallampati Classification: (douglas appropriate class) I. II. III, IV Lungs Heart ASA score ASA 1: a normal healthy patient ASA 2: a patient with a mild systemic disease (mid diabetes, controlled hypertension, obesity ASA 3: a patient with a severe systemic disease that limits activity (angina , COPD, prior Myocardial infarction) ASA 4: a patient with an incapacitating disease that is a constant threat to life (CHF, renal failure) ASA 5: a moribund patient not expected to survive 24 hrs. (ruptured aneurysm) ASA 6: a declared brain patient whose organs are being harvested. For emergent operations, add the letter E after the classification Grade 2 Sedation Plan: Analgesia, Amnesia, Plan communicated to team members, Discussed options with patient/fam, Discussed risks with patient/fam Note The patient is an appropriate candidate to undergo the planned procedure, sedation, and anesthesia. The patient immediately re-assessed prior to indication. SAMMI BEAN MD September 27, 2017 11:50 am
[2017-09-27] MEDS ORDERED: HURRICAINE EXT TUBE (BENZOCAINE) ONE (11:51)
--- NOTE | 2017-09-27 11:52 | Progress Note-Pre Operative ---
Pre-Operative Progress Note H&P Reviewed The H&P was reviewed, patient examined and no changes noted. Date Seen by Provider: September 27, 2017 Time Seen by Provider: 11:45 Date H&P Reviewed: September 27, 2017 Time H&P Reviewed: :45 Pre-Operative Diagnosis: hx polyp SAMMI BEAN MD September 27, 2017 11:51 am
[2017-09-27] MEDS ORDERED: ACETAMINOPHEN 325 MG TABLET/CAPLET (TYLENOL) PO PRN (12:00)
[2017-09-27] MEDS ORDERED: HYDROcodone/APAP 5 MG/325 MG (LORTAB) TAB PO PRN (12:00)
[2017-09-27] MEDS ORDERED: ONDANSETRON 4 MG/2 ML (SDV) Z0FRAN IV PRN (12:00)
[2017-09-27] MEDS ORDERED: morphine INJ 10 MG/ML 1ML (SYR OR VIAL) IV PRN (12:00)
[2017-09-27] MEDS: MIDAZOLAM 2 MG/2 ML (VERSED) VIAL IVP PRN ×3 (12:05→12:19)
[2017-09-27] MEDS: fentaNYL INJECTION 100 MCG/2 ML AMP IVP PRN ×2 (12:06→12:20)
[2017-09-27] MEDS ORDERED: NS IV 500 ML 500 ML IV PRN (12:14)
[2017-09-27] MEDS ORDERED: LIDOCAINE JELLY 2% (XYLOCAINE) 5 ML TUBE MM PRN (12:15)
[2017-09-27 12:20] VITALS: BP 124/72
[2017-09-27] MEDS ORDERED: fentaNYL INJECTION 100 MCG/2 ML AMP IVP PRN (12:30)
[2017-09-27] MEDS ORDERED: MIDAZOLAM 2 MG/2 ML (VERSED) VIAL IVP PRN (12:30)
--- NOTE | 2017-09-27 12:50 | Progress Note-Post Operative ---
Post-Operative Progess Note Surgeon (s)/Horticultural Technical Officer (s) Surgeon SAMMI BEAN MD Horticultural Technical Officer: none Pre-Operative Diagnosis hx polyp Post-Operative Diagnosis reflux esophagitis(class B-C), antral polyp/ulcer, small HH(1.5cm). chronic stage 2 ext and int hemorrhoids, mild sigmoid diverticulosis, 2 polyps cecum Procedure & Operative Findings Date of Procedure 09/27/17 Procedure Performed/Findings EGD with bx. Colonoscopy with bx and snare polypectomy. Anesthesia Type CS Estimated Blood Loss Estimated blood loss (mL): minimal Specimens/Packing Specimens Removed GE jxn, antrum, cecal polypx2 SAMMI BEAN MD September 27, 2017 12:50 pm
[2017-09-27] MEDS ORDERED: SUCR1TAB36 PO ×2 (12:51)
--- NOTE | 2017-09-27 12:52 | Discharge Inst-Surgical ---
D/C Lap Instructions-KIDO New, Converted, or Re-Newed RX: RX on Chart Follow Up Appt in 2 weeks Activity as tolerated High Fiber Diet 25g or more per day Avoid Alcohol, Caffeine, Spicy [place] and Acid foods. Drink 64 fluid oz or more of fluids per day. Symptoms to Report: Fever over 101 degree F, Nausea/Vomiting If any problems/questions: Contact your physician or go to Emergency Room SAMMI BEAN MD September 27, 2017 12:52 pm
[2017-09-27] MEDS ORDERED: HURRICAINE EXT TUBE (BENZOCAINE) XX ONE (13:00)
[2017-09-27 13:15] VITALS: BP 114/70
[2017-09-27 13:40] VITALS: BP 117/79
[2017-09-27 13:50] VITALS: BP 117/79
--- NOTE | 2017-09-27 19:49 | OPERATIVE REPORT ---
DATE OF SERVICE: 09/27/2017 ATTENDING PRIMARY CARE PHYSICIAN: Dr. Aragon. PREOPERATIVE DIAGNOSES: Gastroesophageal reflux disease with history of colon polyp with a focus of carcinoma in situ. POSTOPERATIVE DIAGNOSES: Reflux esophagitis between class B and C. There was a small lesion of the antrum, which may have been a polyp versus chronic small ulcer. A small hiatal hernia of 1.5 cm in size. Chronic stage II external and internal hemorrhoids, mild sigmoid diverticulosis. Two polyps of the cecum, one small hyperplastic polyp, approximately 1 mm in size, the other was a pedunculated adenomatous appearing polyp, approximately 4 mm in size. PROCEDURE: EGD with biopsy, colonoscopy with biopsy and snare polypectomy. SURGEON: Dr. Bean. ANESTHESIA: Conscious sedation. ESTIMATED BLOOD LOSS: Minimal. FINDINGS: EGD, reflux esophagitis class B, small hiatal hernia, approximately 1.5 cm in size, moderate gastritis with a small polyp versus a small chronic healing ulcer. Pylorus and duodenum appeared normal. Colonoscopy, chronic stage II external and internal hemorrhoids, mild sigmoid diverticulosis. Pedunculated polyp of the cecum, approximately 4 mm in size as well as a small hyperplastic polyp of the cecum, a little bit more distal, 1 to 2 mm in size. DISPOSITION: The patient tolerated the procedure well. INDICATIONS: The patient is a 72-year-old male, who did have 3 polyps removed in the and one did come back with a focus of carcinoma in situ with no invasive component. 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 He has had a followup colonoscopy since that time. He did have one in 1998 where 2 polyps were identified and benign. The next one was in 2001 where a rectal polyp was identified and a benign hyperplastic polyp. In 2006, two polyps were identified, two at the transverse colon, both benign. His last one was in 2010 where there were no polyps identified. He reports that he has had some recurrent episodes of epigastric burning sensation as well as crampy pain. He does not report any nausea, no vomiting. DESCRIPTION OF PROCEDURE: The patient was brought to the endoscopy suite, laid in the left lateral decubitus position with head slightly elevated. After adequate IV pain and sedating medications and conscious sedation anesthesia, the mouthpiece was applied. The endoscope was placed in the mouth, visualizing the pharynx and hypopharyngeal region. Vocal cords, epiglottis and vallecula identified and appeared to be normal. Endoscope was then gently intubated at the esophageal opening and esophagus insufflated. The endoscope was then advanced to the first, second and third portion of the esophagus at the level of the GE junction and reflux esophagitis between class B and C identified. There was also a mild Schatzki's ring identified; however, he had reported not being symptomatic from her dysphagia standpoint. A biopsy was taken of this region using biopsy forceps with visualization of good hemostasis. Endoscope was easily advanced in the stomach and endoscope retroflexed, visualizing a small hiatal hernia, approximately 1.5 cm in size. There was a moderate severity gastritis, which was diffuse throughout the stomach. There was also a small polyp with a central scar at the tip, which may indicate an old healing ulcer as well. This was biopsied using forceps with visualization of good hemostasis. The endoscope was then advanced to the pylorus and the first and second portion of the duodenum, which were normal. Endoscope was then slowly withdrawn with taking a second look and suctioning of residual air with no additional findings. The patient tolerated this portion of the procedure well. We will recommend the necessary lifestyle and diet accommodation including small and more frequent meals, avoidance of eating at night as well as head elevation while lying supine. He also needs to avoid caffeinated beverages, spicy, greasy and acidic foods. He is currently on Protonix; however, we will add Carafate 1 gram q.i.d. for the next two weeks as well on a p.r.n. basis. Under the same anesthesia, we then proceeded with colonoscopy portion of the procedure. A digital rectal examination was performed, which revealed chronic stage II external and internal hemorrhoids, not actively edematous nor inflamed and no bleeding. Prostate gland was palpable and appeared normal. The endoscope was then intubated to the anus and rectum gently insufflated. The endoscope was then advanced to the valves of Rahman of the rectum with no polyps or any neoplasms identified. We then proceeded through the sigmoid colon where a mild sigmoid diverticulosis identified. The endoscope was then advanced to the remainder of the descending, transverse and ascending colon to cecum. At the more proximal portion of the cecum, there was a small hyperplastic polyp approximately 2 mm in size. This was biopsied and destroyed using forceps and electrocautery. A pedunculated adenomatous polyp approximately 4 mm in size was identified of the more distal cecum and this was removed by snare polypectomy and electrocautery with visualization of good hemostasis. The endoscope was then slowly withdrawn with taking a second look and suctioning of residual air with no additional findings. The patient tolerated the procedure well. We will await the biopsy results; however, due to his history of colon polyps as well as a polyp with a focus of carcinoma in situ, we will recommend frequent followup colonoscopies. Job ID: [id number] DocumentID: [id number] Dictated Date: 09/27/2017 13:00:00 Chemist Instrumentation Date: 09/27/2017 19:49:29 Dictated By: SAMMI BEAN MD
== END 2017-09-27 13:55 | disposition home or self-care (01) ==
LOC: ENDO 11:23
PROVIDERS: ATTEND Surgery
DX: Z12.11 Encounter for screening for malignant neoplasm of colon (principal); D12.0 Benign neoplasm of cecum; K57.30 Diverticulosis of large intestine without perforation or abscess without bleeding; K64.1 Second degree hemorrhoids; K21.0 Gastro-esophageal reflux disease with esophagitis; K44.9 Diaphragmatic hernia without obstruction or gangrene; K22.2 Esophageal obstruction; E11.9 Type 2 diabetes mellitus without complications; K29.70 Gastritis, unspecified, without bleeding; K31.7 Polyp of stomach and duodenum; Z86.010 Personal history of colon polyps; I11.0 Hypertensive heart disease with heart failure; I50.9 Heart failure, unspecified; I25.10 Atherosclerotic heart disease of native coronary artery without angina pectoris; I48.91 Unspecified atrial fibrillation; Z79.01 Long term (current) use of anticoagulants; Z79.02 Long term (current) use of antithrombotics/antiplatelets; Z79.84 Long term (current) use of oral hypoglycemic drugs; Z79.899 Other long term (current) drug therapy
CPT/HCPCS: 82962; 88305; 88341; 88342

== ENCOUNTER 2017-09-30 12:21 | Emergency (ER) | payer MEDICARE ==
[~2017-09-30] VITALS: Ht 172.7 cm; Wt 93.4 kg
[~2017-09-30 12:21] MED LIST changes: +SUCR1TAB36 PO
--- OUTSIDE RECORDS SUMMARY | 2017-09-30 12:26 | XMS REPORT | Encounter Summary ---
Author Author [facility] Organization [facility] Address Unknown Phone Unavailable Care Team Providers Care Mechanical Engineering Manager Name Role Phone Laura Aragon MD PCP Encounter Details Date Type Department Care Team Description 09/05/2017 Procedure Pass [place] Operating Room [address] [place] [id number] Social History Tobacco Use Types Packs/Day [...]
--- OUTSIDE RECORDS SUMMARY | 2017-09-30 12:26 | XMS REPORT | Encounter Summary ---
Author Author [facility] Organization [facility] Address Unknown Phone Unavailable Care Team Providers Care Dump Operator Name Role Phone Laura Aragon MD PCP Reason for Visit * Auth/Cert Status Reason Specialty Diagnoses / Referred By Referred To Procedures Contact Contact Diagnoses Mass of left ear Mass of left ear [H93.8X2] P rocedures OK EXCISION EXTERNAL EAR PARTIAL SIMPLE REPAIR OK ADJT TIS TRNS/REARGMT F/C/C/M/N/A/G/H/ F 10SQCM/< OK SPLIT AGRFT F/S/N/H/F/G/M/D GT 1ST 100 CM/</1 % EXCISION BONE EXTERNAL EAR CANAL ADJACENT TISSUE TRANSFER PEDICLE FLAP DEFECT 10 SQ CM OR LESS - AXILLA GRAFT SKIN SPLIT THICKNESS HEAD/NECK Encounter Details Date Type Department Care Team Description 09/05/2017 Surgery [place] Operating Room Alvino Stone MD PARTIAL AURICULECTOMY [address] [place] [place] [address] [place] [address] RECONSTRUCTION [phone] Social History Tobacco Use Types Packs/Day Years Used Date Former Smoker Cigarettes 1 Quit: 1982 Smokeless Tobacco: Never Used Comments: [...] 2017 capsule twice daily. Use while taking [place] pain medication donepezil (ARICEPT) 5 mg Take [...] on 08/12/17. Brenda Hernández MD Pager * Alvnio Stone MD - 08/12/2017 9:00 AM CDT Formatting of this note may be different from the original. Chief Complaint Patient presents with Mass Growth next to the ear History of Present Illness: Deejay Car is a 72 y.o. year old male evaluated on 08/12/2017, in the Otolaryngology-Head and Neck Surgery Clinic at the [facility]. The patient was referred by Dr. Aragon for evaluation of posterior ear mass on the left. He states that he has had this mass for approximately 3-4 years. His primary care doctor has referred for evaluation by residential tech for this as well as multiple skin lesions on the face and trunk. He has not been able to see dermatology yet. He states that the mass behind his left ear is tender to the touch, and it bleeds occasionally when rubbed. He appears to have several lesions on the face and trunk concerning for skin cancers. 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 He [...] OF POSTERIOR LEFT EAR LESION Surgeon: Chase Tar Boiler: Raúl In detail: Consent was obtained and [...] September 05, 2017 Surgeon: Alvino Stone MD Tar Boiler: Brenda Hernández MD Indications: Deejay Car is a 72 y.o. 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 He presents for surgical excision and reconstruction. Procedures: 25382 - Excision external ear; partial 03352 - Adjacent tissue transfer or rearrangement, any [...] were anesthetized with 1% lidocaine with epinephrine 1:[id number] 20757 - Excision external ear; partial The left [...] and attention was turned to the reconstruction. 87142 - Adjacent tissue transfer or rearrangement, any [...] 100 MG/DL Specimen Performing Laboratory MAIN LAB [address] [place] [address] * SURGICAL PATHOLOGY (09/05/2017 12:16 PM) Component Value Ref Range PATHOLOGY REPORT [facility] [email or web address] Department of Pathology and Laboratory Medicine [address] [place] [address] Surgical Pathology Office:[phone]:[phone] SURGICAL PATHOLOGY REPORT NAME: DEEJAY CAR RAY SURG PATH #: [id number] MR #: [id number] SPECIMEN CLASS: [facility] BILLING #: [id number] ALT ID #:LOCATION: [id number] DATE OF PROCEDURE: [...] submitted from superior to inferior as follows: I9Bkwpjrkhdqpeo sections of superior margin. E2-B7Rhrntuag between superior and inferior margin. H0Sjjkewcloface sections of inferior margin. (sld) 09/05/2017 Intraoperative Consultation: A1FS, skin, "skin margin 12:00 to 3:00", biopsy: Negative for malignancy. B1FS, skin, "skin margin 3:00 to 6:00", biopsy: Negative for malignancy. C1FS, skin, "skin margin 6:00 to 9:00", biopsy: Negative for malignancy. D1FS, skin, "skin margin 9:00 to 12:00", biopsy: Negative for malignancy. Frozen section performed at the [facility], [address] [place] [id number]. Specimen Performing Laboratory LAB RESULTS * POC GLUCOSE (09/05/2017 9:13 AM) Component Value Ref Range Glucose, POC 204 (H) 70 - 100 MG/DL Specimen Performing Laboratory MAIN LAB [address] [place] [address] in this encounter Visit Diagnoses Diagnosis Mass [...]
--- OUTSIDE RECORDS SUMMARY | 2017-09-30 12:26 | XMS REPORT | Encounter Summary ---
Author Author [facility] Organization [facility] Address Unknown Phone Unavailable Care Team Providers Care Utilization Management Manager Name Role Phone Laura Aragon MD PCP Reason for Visit * Auth/Cert Status Reason Specialty Diagnoses / Referred By Referred To Procedures Contact Contact Diagnoses Mass of left ear Mass of left ear [H93.8X2] P rocedures NE EXCISION EXTERNAL EAR PARTIAL SIMPLE REPAIR NE ADJT TIS TRNS/REARGMT F/C/C/M/N/A/G/H/ F 10SQCM/< NE SPLIT AGRFT F/S/N/H/F/G/M/D GT 1ST 100 CM/</1 % EXCISION BONE EXTERNAL EAR CANAL ADJACENT TISSUE TRANSFER PEDICLE FLAP DEFECT 10 SQ CM OR LESS - AXILLA GRAFT SKIN SPLIT THICKNESS HEAD/NECK Encounter Details Date Type Department Care Team Description 09/05/2017 Anesthesia [place] Operating Room [facility], [facility] Event [address] [place] [address] Anesthesia Record Procedure Name Responsible Anesthesia Start [...]
--- OUTSIDE RECORDS SUMMARY | 2017-09-30 12:26 | XMS REPORT | Clinical Summary ---
Author Author [facility] Organization [facility] Address Unknown Phone Unavailable Care Team Providers Care Spout Positioner Name Role Phone Laura Aragon MD PCP Source Comments Some departments are not documenting in the electronic medical record. If you do not see the information that you expected, contact Release of Information in the Health Information Management department at [phone] for further assistance in locating additional records.[facility] Allergies Active Allergy Reactions Severity Noted [...] capsule twice daily. Use while 16 taking [place] pain medication cephalexin (KEFLEX) 500 Take 1 capsule by mouth 28 capsule 0 09/06/19 09/13/19 mg capsule four times daily for 7 18 18 days. Active Problems Problem Noted Date Cancer of the skin, basal cell 09/13/2017 Ear mass, left 08/12/2017 Anticoagulated 08/12/2017 Mass of left ear 08/12/2017 Overview: Added automatically from request for surgery [id number] Encounters Date Type Specialty Care Team Description [...] VACCINE 2003 ABDOMINAL AORTIC ANEURYSM 02/01/2008 SCREENING PNEUMONIA (PCV13/PPSV23) 02/01/2008 VACCINES (1 of 2 - PCV13) INFLUENZA VACCINE 02/03/2018 Procedures Procedure Name Priority [...] Specimen Performing Laboratory [facility] [address] [place] [address] * SURGICAL PATHOLOGY (09/05/2017 12:16 PM) Only the most recent of 2 results within the time period is included. Component Value Ref Range PATHOLOGY REPORT [facility] [email or web address] Department of Pathology and Laboratory Medicine [address] [place] [address] Surgical Pathology Office:[phone]:[phone] SURGICAL PATHOLOGY REPORT NAME: DEEJAY CAR SURG PATH #: [id number] MR #: [id number] SPECIMEN CLASS: SCA BILLING #: [id number] ALT ID #:LOCATION: [id number] DATE OF PROCEDURE: [...] a 0.8 x 0.3 x 0.3 cm rooln-white, irregular fragment of tissue. The entire specimen [...] submitted from superior to inferior as follows: R3Hyhgyecfpalbd sections of superior margin. E2-L7Hawgvbnf between superior and inferior margin. X2Epmunznonnrmk sections of inferior margin. (sld) 09/05/2017 Intraoperative Consultation: A1FS, skin, "skin margin 12:00 to 3:00", biopsy: Negative for malignancy. B1FS, skin, "skin margin 3:00 to 6:00", biopsy: Negative for malignancy. C1FS, skin, "skin margin 6:00 to 9:00", biopsy: Negative for malignancy. D1FS, skin, "skin margin 9:00 to 12:00", biopsy: Negative for malignancy. Frozen section performed at the [facility], [address] [place] [address]. Specimen Performing Laboratory [facility] RESULTS * [...] Performing Laboratory Blood [facility] [address] [place] [address] * COMPREHENSIVE METABOLIC PANEL (08/23/2017 9:54 AM) [...] Performing Laboratory Blood [facility] [address] [place] [address] * CT NECK W/CONTRAST (08/23/2017 7:52 AM) [...] - 1.24 MG/DL Specimen Performing Laboratory [facility] [address] [place] [address] from Last 3 Months
--- OUTSIDE RECORDS SUMMARY | 2017-09-30 12:26 | XMS REPORT | Encounter Summary ---
Author Author [facility] Organization [facility] Address Unknown Phone Unavailable Care Team Providers Care Mig Tig Welder Name Role Phone Laura Aragon MD PCP Reason for Visit * Reason Comments Post Operative Visit s/p excision external ear with adjacent tissue transfer or rearrangement on 09/05/[address] Stone Encounter Details Date Type Department Care Team Description 09/13/2017 Office Visit [facility] Julio C Batista PA-C Cancer of the skin, basal Physicians - ENT [address] cell 3RD FLOOR POD C [place] [address] [place] [address] OFFICE BLDG [phone] [place] [address] Social History Tobacco Use Types [...]
--- OUTSIDE RECORDS SUMMARY | 2017-09-30 12:27 | XMS REPORT | Encounter Summary ---
Author Author [facility] Organization [facility] Address Unknown Phone Unavailable Care Team Providers Care Senior Site Manager Name Role Phone Laura Aragon MD PCP Encounter Details Date Type Department Care Team Description 08/12/2017 [facility] Alvino Stone MD Other specified disorders Encounter [address] [place] [address] [place] [address] [phone] Social History Tobacco Use Types Packs/Day Years [...] 2017 capsule twice daily. Use while taking [place] pain medication donepezil (ARICEPT) 5 mg Take [...] Component Value Ref Range PATHOLOGY REPORT [facility] [email or web address] Department of Pathology and Laboratory Medicine [address] [place] [address] Surgical Pathology Office:[phone]:[phone] SURGICAL PATHOLOGY REPORT NAME: DEEJAY CAR SURG PATH #: [id number] MR #: [id number] SPECIMEN CLASS: SR BILLING #: [id number] ALT ID #:LOCATION: ENT DATE OF PROCEDURE: [...]
--- OUTSIDE RECORDS SUMMARY | 2017-09-30 12:27 | XMS REPORT | Encounter Summary ---
Author Author [facility] Organization [facility] Address Unknown Phone Unavailable Care Team Providers Care Grill Attendant Name Role Phone Laura Aragon MD PCP Reason for Referral * Radiology Services (Routine) Status Reason Specialty Diagnoses / Referred By Referred To Procedures Contact Contact Closed Radiology Diagnoses Alvino Stone Mob Ct Mass of left ear [address] NECK [place], [place] W/CONTRAST [phone] Phone: Fax: Reason for Visit * Reason Comments Mass Growth next to the ear * Consult, Test & Treat (Routine) Status Reason Specialty Diagnoses / Referred By Referred To Procedures Contact Contact No Auth Needed Otolaryngology Procedures Alvino Stone MD NEW PATIENT [address] [place] [address] Encounter Details Date Type Department Care Team Description 08/12/2017 Office Visit [facility] Alvino Stone MD Mass of left ear (Primary Physicians - ENT [address] Dx); 3RD [place] [address] Ear mass, left; [address] [phone] Anticoagulated [place] [phone] Social History Tobacco Use Types Packs/Day Years [...] aspirin without seeking the Approval of your Corporate Giving Manager. ? Refrain from smoking two weeks before [...] calling . Your surgery is scheduled at [facility]. Park in the parking garage off of [facility]. Enter the [facility] through the 1st floor main entrance. Check in with admitting on 1st floor. Please park on the [place] of the Building in the [employer] Garage. Once you enter the building, you [...] any facial or eye make-up. Avoid nail congolese. ? You may wear glasses but do not wear contact lenses. ? If you wear dentures, keep them in. ? Bring ID and insurance card with you. DONT TAKE CHANCES! If you are concerned about anything you consider significant, call us at [phone] business hours, ask for your nurse , Minal, or the on-call nurse. After hours ask to speak to the ENT doctor numerical control lathe operator. in this encounter Progress Notes * Alvino Stone MD - 08/12/2017 9:00 AM CDT Formatting of this note may be different from the original. Chief Complaint Patient presents with Mass Growth next to the ear History of Present Illness: Deejay Car is a 72 y.o. year old male evaluated on 08/12/2017, in the Otolaryngology-Head and Neck Surgery Clinic at the [facility]. The patient was referred by Dr. Aragon for evaluation of posterior ear mass on the left. He states that he has had this mass for approximately 3-4 years. His primary care doctor has referred for evaluation by residential worker for this as well as multiple skin lesions on the face and trunk. He has not been able to see dermatology yet. He states that the mass behind his left ear is tender to the touch, and it bleeds occasionally when rubbed. He appears to have several lesions on the face and trunk concerning for skin cancers. 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 He [...] OF POSTERIOR LEFT EAR LESION Surgeon: Chase Licensing Engineer: Raúl In detail: Consent was obtained and [...]
--- OUTSIDE RECORDS SUMMARY | 2017-09-30 12:27 | XMS REPORT | Encounter Summary ---
Author Author [facility] Organization [facility] Address Unknown Phone Unavailable Care Team Providers Care Supervising Editor Trailer Name Role Phone Laura Aragon MD PCP Encounter Details Date Type Department Care Team Description 08/12/2017 Procedure Pass [facility] Radiology [address] [facility] OFFICE [place]LD[place] 2[place] [address] Social History Tobacco Use Types [...]
--- OUTSIDE RECORDS SUMMARY | 2017-09-30 12:27 | XMS REPORT | Encounter Summary ---
Author Author [facility] Organization [facility] Address Unknown Phone Unavailable Care Team Providers Care Line Camera Operator Name Role Phone Laura Aragon MD PCP Encounter Details Date Type Department Care Team Description 08/23/2017 PAC Office Preoperative Assessment Alvino Stone MD Preoperative Visit Clinic [address] [facility] cardiovascular [address] [place] [address] examination (Primary Dx); [place] [address] History of atrial [phone] fibrillation; Mass of left ear; Mass of [...] and any other valuables at home. [facility] for the loss or breakage of personal items. Remove nail canadian, makeup and all jewelry (including piercings) before coming to the hospital. The morning of your procedure: brush your teeth and tongue do not smoke do not shave the area where you will have surgery What to bring to the hospital ID/ Insurance Card Supervisor [employer] card Official documents for legal guardianship Copy of your Living Will, Advanced Directives, and/or Durable Power of Director Investor Relations Small bag with a few personal belongings [...] to cancel your procedure Notify us at [facility]: if you need to cancel your procedure if you are going to be late Arrival at the [facility] A: ? Park in the P5 parking garage located at [address] [place] [address] (Next to the [facility] A [address] [place] [address]). ? Technician Helper Instrument parking is available in front of [facility] between the hours of 7:00 am and 4:00 pm Saturday through Saturday. ? If parking in the P5 garage, take the east elevators in the parking garage to the second level and walk to the entrance of the [facility]. ? Enter through the 1st floor main [...] your arrival time. Before 4:30 pm, call [phone], and after 4:30 pm, call [phone]. * Pre-Anesthesia Medication Instructions - Dylan Lucia, [...] with any medicine updates or questions. E-mail: [email or web address] Before going home from the hospital, please [...] on 09/05/2017. Per clearance letter from Dr. Fung, Eliquis may [...] Performing Laboratory Blood [facility] [address] [place] [address] * CBC (08/23/2017 9:54 AM) Component Value [...] Performing Laboratory Blood [facility] [address] [place] [address] in this encounter Visit Diagnoses Diagnosis Preoperative cardiovascular examination - Primary Pre-operative cardiovascular examination History of atrial fibrillation Personal history of other diseases of circulatory system Mass of left ear Mass of ear auricle, unspecified laterality
--- OUTSIDE RECORDS SUMMARY | 2017-09-30 12:27 | XMS REPORT | Encounter Summary ---
Author Author [facility] Organization [facility] Address Unknown Phone Unavailable Care Team Providers Care Dairy Nutritionist Name Role Phone Laura Aragon MD PCP Reason for Visit * Auth/Cert Status Reason Specialty Diagnoses / Referred By Referred To Procedures Contact Contact Diagnoses Mass of left ear Mass of left ear [H93.8X2] P rocedures TX EXCISION EXTERNAL EAR PARTIAL SIMPLE REPAIR TX ADJT TIS TRNS/REARGMT F/C/C/M/N/A/G/H/ F 10SQCM/< TX SPLIT AGRFT F/S/N/H/F/G/M/D GT 1ST 100 CM/</1 % EXCISION BONE EXTERNAL EAR CANAL ADJACENT TISSUE TRANSFER PEDICLE FLAP DEFECT 10 SQ CM OR LESS - AXILLA GRAFT SKIN SPLIT THICKNESS HEAD/NECK Encounter Details Date Type Department Care Team Description 09/05/2017 Hospital [place] Operating Room Alvino Stone MD Mass of left ear Encounter [address] [facility] [address] [place] [address] [place] [address] [phone] Social History Tobacco Use Types Packs/Day Years [...] 2017 capsule twice daily. Use while taking [place] pain medication donepezil (ARICEPT) 5 mg Take [...] hours): POC Glucose (Download): (!) 204 (09/05/17 3232) I have examined the patient, and there [...] Otolaryngology[facility]Head and Neck Surgery Clinic at the [facility]. The patient was referred by Dr. Aragon for evaluation of posterior ear mass on the left. He states that he has had this mass for approximately 3-4 years. His primary care doctor has referred for evaluation by duplicating machine operator for this as well as multiple skin lesions on the face and trunk. He has not been able to see dermatology yet. He states that the mass behind his left ear is tender to the touch, and it bleeds occasionally when rubbed. He appears to have several lesions on the face and trunk concerning for skin cancers. 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 He quit smoking [...] OF POSTERIOR LEFT EAR LESION Surgeon: Chase Case Hardener: Raúl In detail: Consent was obtained and [...] September 05, 2017 Surgeon: Alvino Stone MD Case Hardener: Brenda Hernández MD Indications: Deejay Car is a 72 y.o. 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 He presents for surgical excision and reconstruction. Procedures: 53550 - Excision external ear; partial 24769 - Adjacent tissue transfer or rearrangement, any [...] were anesthetized with 1% lidocaine with epinephrine 1:[id number] 28056 - Excision external ear; partial The left [...] and attention was turned to the reconstruction. 74657 - Adjacent tissue transfer or rearrangement, any [...] 100 MG/DL Specimen Performing Laboratory [facility] [address] [place] [address] * SURGICAL PATHOLOGY (09/05/2017 12:16 PM) Component Value Ref Range PATHOLOGY REPORT [facility] www.[email or web address] Department of Pathology and Laboratory Medicine [address] [place] [address] Surgical Pathology Office:[phone]:[phone] SURGICAL PATHOLOGY REPORT NAME: DEEJAY CAR RAY SURG PATH #: [id number] MR #: [id number] SPECIMEN CLASS: SCA BILLING #: [id number] ALT ID #:[facility]ATION: [facility] DATE OF PROCEDURE: 09/05/2017 AGE:72 SEX: [...] submitted from superior to inferior as follows: F0Pgmvvprubtevu sections of superior margin. E2-H6Dgvwitsb between superior and inferior margin. I0Mlhbnrvxaytoj sections of inferior margin. (sld) 09/05/2017 Intraoperative Consultation: A1FS, skin, "skin margin 12:00 to 3:00", biopsy: Negative for malignancy. B1FS, skin, "skin margin 3:00 to 6:00", biopsy: Negative for malignancy. C1FS, skin, "skin margin 6:00 to 9:00", biopsy: Negative for malignancy. D1FS, skin, "skin margin 9:00 to 12:00", biopsy: Negative for malignancy. Frozen section performed at the [facility], [address] [place] [address]. Specimen Performing Laboratory LAB RESULTS * POC GLUCOSE (09/05/2017 9:13 AM) Component Value Ref Range Glucose, POC 204 (H) 70 - 100 MG/DL Specimen Performing Laboratory [facility]IN LAB [address] [place] [address] in this encounter Visit Diagnoses Diagnosis Ear [...]
--- OUTSIDE RECORDS SUMMARY | 2017-09-30 12:27 | XMS REPORT | Encounter Summary ---
Author Author [facility] Organization [facility] Address Unknown Phone Unavailable Care Team Providers Care Barrel Inspector Tight Name Role Phone Laura Aragon MD PCP Reason for Visit * Reason Comments Surgery Encounter Details Date Type Department Care Team Description 08/22/2017 Telephone [facility] Alvino Stone MD Surgery Physicians - ENT [address] 3RD [place] [address] MED [phone] [place] [address] Social History Tobacco Use Types [...]
--- OUTSIDE RECORDS SUMMARY | 2017-09-30 12:27 | XMS REPORT | Encounter Summary ---
Author Author [facility] Organization [facility] Address Unknown Phone Unavailable Care Team Providers Care Grid Inspector Name Role Phone Laura Aragon MD PCP Encounter Details Date Type Department Care Team Description 08/12/2017 Prep for Case [facility] Alvino Stone MD Mass of left ear (Primary Physicians - ENT [address] Dx) 3RD [place] [address] MED [phone] [place] [address] Social History Tobacco Use Types [...]
--- OUTSIDE RECORDS SUMMARY | 2017-09-30 12:27 | XMS REPORT | Encounter Summary ---
Author Author [facility] Organization [facility] Address Unknown Phone Unavailable Care Team Providers Care National Sales Director Name Role Phone PCP Unavailable Reason for Visit * Reason Comments Navigation Assessment Encounter Details Date Type Department Care Team Description 08/09/2017 Telephone [facility] Alvino Stone MD Navigation Assessment [facility] Exam [address] [place] [address] [place] [address] [phone] Social History Tobacco Use Types Packs/Day Years [...] Laura Aragon Contact Name & Number: Maki [phone] Draw Bench Operator Helper: Thomas Fung in [place] [phone], last seen 03/2017 Location of Films: none [...] "small blood vessel disease" and follows with auto clocks repairer. (requested last OV note from cardiololgy) Prior Treatment (XRT, Surgery, Chemotherapy): none Comments: Pt is , states is pt with urology. 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 in this encounter Plan of Treatment Not on fileas of this encounter Visit Diagnoses Not on filein this encounter
--- OUTSIDE RECORDS SUMMARY | 2017-09-30 12:27 | XMS REPORT | Encounter Summary ---
Author Author [facility] Organization [facility] Address Unknown Phone Unavailable Care Team Providers Care Assistant Mechanic Name Role Phone Laura Aragon MD PCP Reason for Referral * Radiology Services (Routine) Status Reason Specialty Diagnoses / Referred By Referred To Procedures Contact Contact Closed Radiology Diagnoses Alvino Stone Mob Ct Mass of left ear MD [address] [employer] [facility] OFFICE [address] NECK [place], [place] W/[place]AST [address] Phone: Fax: * Radiology Services (Routine) Status Reason Specialty Diagnoses / Referred By Referred To Procedures Contact Contact Closed Radiology Diagnoses Alvino Stone Mob Ct Mass of left ear MD [address] [place] [facility] OFFICE [address] NECK [place], [place] W/[place]AST [address] Phone: Fax: Reason for Visit * Radiology Services (Routine) Status Reason Specialty Diagnoses / Referred By Referred To Procedures Contact Contact Closed Radiology Diagnoses Alvino Stone Mob Ct Mass of left ear MD [address] [employer] MED OFFICE [address] NECK [place], [place]AST [address] Phone: Fax: Encounter Details Date Type Department Care Team Description 08/23/2017 Hospital [facility] Alvino Stone MD Encounter Hospital Radiology [address] [place] [address] OFFICE BLDG [phone] [address] [place] [address] Social History Tobacco Use Types [...] 2017 capsule twice daily. Use while taking [place] pain medication donepezil (ARICEPT) 5 mg Take [...] Specimen Performing Laboratory [facility] [address] [place] [address] in this encounter Visit Diagnoses Diagnosis Mass [...]
[2017-09-30 13:44] LABS: BASOPHILS % (AUTO) 0 % (0-10); EOSINOPHILS # (AUTO) 0.1 10^3/uL (0.0-0.3); EOSINOPHILS % (AUTO) 1 % (0-10); HEMATOCRIT 39 % (40-54); LYMPHOCYTES # (AUTO) 1.4 X 10^3 (1.0-4.0); LYMPHOCYTES % (AUTO) 20 % (12-44); MEAN CORPUSCULAR HEMOGLOBIN 31 PG (25-34); MEAN CORPUSCULAR HGB CONC 36 G/DL (32-36); MEAN CORPUSCULAR VOLUME 88 FL (80-99); MEAN PLATELET VOLUME 9.5 FL (7.4-10.4); MONOCYTES # (AUTO) 0.7 X 10^3 (0.0-1.0); MONOCYTES % (AUTO) 10 % (0-12); NEUTROPHILS # (AUTO) 4.8 X 10^3 (1.8-7.8); NEUTROPHILS % (AUTO) 70 % (42-75); PLATELET COUNT 179 10^3/uL (130-400); RED BLOOD COUNT 4.48 10^6/uL (4.35-5.85); RED CELL DISTRIBUTION WIDTH 13.3 % (10.0-14.5); WHITE BLOOD COUNT 6.9 10^3/uL (4.3-11.0)
[2017-09-30 13:53] LABS: INR 1.3 (0.8-1.4); PROTHROMBIN TIME PATIENT 16.2 SEC (12.2-14.7)
--- NOTE | 2017-09-30 14:00 | Diagnostic Imaging Report ---
PROCEDURE: CT abdomen and pelvis without contrast. TECHNIQUE: Multiple contiguous axial images were obtained through the abdomen and pelvis without the use of intravenous contrast. INDICATION: Rectal bleeding. The previous CT abdomen/pelvis exam of 08/20/2011 failed to show any sign acute abnormality of the abdomen or pelvis. On this study , there are few diverticula in the sigmoid and descending colon. There is no evidence for acute diverticulitis however. There is no sign of a mass involving the rectum either. If further study is desired however, then endoscopy would be recommended. The appendix was visualized and is not abnormally thickened. There is no pelvic mass or free fluid collection noted. The urinary bladder is only partially distended and consequently difficult to assess. The prostate gland is enlarged measuring 5.7 cm in maximum transverse diameter (normal 5 cm or less). The liver, spleen, pancreas, adrenals, aorta and inferior cava and kidneys are unremarkable for an acute abnormality. As noted on the prior exam, the gallbladder is surgically absent. The stomach is partially filled with particulate matter and consequently difficult to assess. The heart is mildly enlarged but stable when compared with the prior study. The bone window shows no evidence for a fracture or for destructive lesion. IMPRESSION: 1. There is diverticulosis of the sigmoid and descending colon but there is no evidence for acute diverticulitis. There is no mass that would account for the patient's rectal bleeding. If further study is desired, then endoscopy would be recommended. 2. There is no acute abnormality of the abdomen or pelvis noted otherwise. 3. The prostate gland is enlarged. 4. There is cardiomegaly. Dictated by: Dictated on workstation # [id number]
--- NOTE | 2017-09-30 14:04 | ED GI ---
General Chief Complaint: Rect Problems Stated Complaint: BLEEDING WITH BM Nursing Triage Note: TO ROOM HAD COLONOSCOPY ON SATURDAY BY DR CHRISTIANSEN. TODAY HAD BLEEDING WITH BM. X2 2ND TIME WAS DARK BLOOD. Sepsis Screen: No Definite Risk History of Present Illness Date Seen by Provider: September 30, 2017 Time Seen by Provider: 13:15 Initial Comments 72-year-old male reports for hematochezia. EGD and colonoscopy completed on 09/27/[address] Christiansen, he had normal stools on 09/28 and 09/29 with no bleeding. Today he has had 3 stools with hematochezia. The first one was bright red blood, the last 2 have been dark red blood. He denies previous GI bleeding. Per report of the colonoscopy he had 2 polyps removed and was noted to have internal and neck sternal hemorrhoids. He is on Eliquis and Plavix per Dr. Fung, he stopped these 5 days prior to the colonoscopy and resumed them . Timing/Duration: 4-6 Hours Severity/Quality: Mild Location: RLQ Radiation: No Radiation Activities at Onset: None Associated Symptoms: Denies Symptoms Allergies and Home Medications Allergies Coded Allergies: Juan Known Allergies (Unverified Allergy, Mild, 09/19/17) Home Medications Acetaminophen 500 Mg Tablet, 500-1,000 MG PO Q6H PRN for PAIN, (Reported) TAKES 1-2 (500 MG) TABLETS Allopurinol 100 Mg Tablet, 100 MG PO DAILY, (Reported) Amlodipine Besylate 10 Mg Tablet, 10 MG PO DAILY, (Reported) Apixaban 2.5 Mg Tablet, 5 MG PO BID, (Reported) TAKES 2 (2.5 MG) TABLETS Calcium Carb/Magnesium Hydrox 1 Each Tab.chew, 1 TAB PO DAILY PRN PRN for GAS, ( Reported) Clopidogrel Bisulfate 75 Mg Tablet, 75 MG PO DAILY, (Reported) Donepezil HCl 5 Mg Tablet, 5 MG PO HS, (Reported) Doxazosin Mesylate 4 Mg Tablet, 4 MG PO HS, (Reported) Escitalopram Oxalate 5 Mg Tablet, 5 MG PO DAILY, (Reported) Finasteride 5 Mg Tablet, 5 MG PO DAILY, (Reported) Lisinopril/Hydrochlorothiazide 1 Each Tablet, 2 TAB PO DAILY, (Reported) Metformin HCl 500 Mg Tablet, 500 MG PO DAILY, (Reported) Metoprolol Tartrate 25 Mg Tablet, 25 MG PO BID, (Reported) Pantoprazole Sodium 40 Mg , 40 MG PO DAILY Prescribed by: SKYLAR FUNG on 05/09/16 1431 Sucralfate 1 Gm Tablet, 1 GM PO QID Prescribed by: SAMMI CHRISTIANSEN on 09/27/17 1251 Patient Home Medication List Home Medication List Reviewed: Yes Review of Systems Constitutional: no symptoms reported, see HPI Gastrointestinal: See HPI, Abdominal Pain, Blood Streaked Stools; Denies Constipated, Denies Diarrhea, Denies Difficulty Swallowing, Denies Nausea, Denies Poor Appetite, Denies Poor Fluid Intake; Rectal Bleeding; Denies Vomiting All Other Systems Reviewed Negative Unless Noted: Yes Past Vwwkymr-Mmfydq-Yyuxkd Hx Past Med/Social Hx: Reviewed Nursing Past Med/Soc Hx Patient Social History Alcohol Use: Occasionally Uses Number of Drinks Today: AA Alcohol Beverage of Choice: Beer Recreational Drug Use: No Type Used: Cigarettes Former Smoker, Quit: Aug 07, 1987 Recent Foreign Travel: No Contact w/Someone Who Travel: No Recent Infectious Disease Expo: No Recent Hopitalizations: No Immunizations Up To Date Tetanus Booster (TDap): Less than 5yrs PED Vaccines UTD: No Date of Pneumonia Vaccine: Feb 10, 2015 Date of Influenza Vaccine: Feb 18, 2017 Seasonal Allergies Seasonal Allergies: Yes Past Medical History Surgeries: Yes (HERNIA SURGERY, HEMORRHOIDS, EYE MUSCLE SURGERY, skin graft) Abdominal, Gallbladder Respiratory: No (SOA increasing over last 3-4 weeks ) Currently Using CPAP: No Currently Using BIPAP: No Cardiac: Yes Atrial Fibrillation, Coronary Artery Disease, Hypertension Neurological: Yes (Myalgia) Reproductive Disorders: No Sexually Transmitted Disease: No HIV/AIDS: No Genitourinary: Yes Benign Prostatic Hyperpl Gastrointestinal: Yes (HX OF COLON CA) Gastroesophageal Reflux, Polyps Musculoskeletal: Yes Degenerate Disk Disease, Arthritis, Chronic Back Pain, Gout Endocrine: Yes (metformin) Diabetes, Non-Insulin dep HEENT: Yes Cataract Loss of Vision: Denies Hearing Impairment: Hard of Hearing Cancer: Yes Skin, Colon Did You Recieve Any Treatments: Yes What Type of Treatment Did You: Surgical Intervention Psychosocial: Yes Anxiety, Depression Integumentary: Yes (skin graft to left graham) Blood Disorders: No Adverse Reaction/Blood Tranf: No (N/A) Family Medical History Cardiovascular disease 19 FATHER Hypertension 19 FATHER Physical Exam Vital Signs Vital Signs - First Documented 09/30/17 12:31 Temp 98.1 Pulse 91 Resp 18 B/P (MAP) 130/97 (108) Pulse Ox 96 O2 Delivery Room Air Capillary Refill : Less Than 3 Seconds General Appearance: WD/WN, no apparent distress HEENT: PERRL/EOMI, normal ENT inspection, TMs normal, pharynx normal Neck: non-tender, full range of motion, supple Respiratory: chest non-tender, lungs clear, normal breath sounds Cardiovascular: normal peripheral pulses, regular rate, rhythm, no murmur Peripheral Pulses: 2+ Dorsalis Pedis (R), 2+ Left Dors-Pedis (L), 2+ Radial Pulses (R), 2+ Radial Pulses (L) Gastrointestinal: normal bowel sounds, soft, no pulsatile mass; No distended, No guarding, No rebound; tenderness (trace tenderness right lower quadrant) Neurologic/Psychiatric: no motor/sensory deficits, alert, normal mood/affect, oriented x 3 Skin: normal color, warm/dry Progress/Results/Core Measures Results/Orders Lab Results Laboratory Tests Test 09/30/17 13:34 Range/Units White Blood Count 6.9 4.3-11.0 10^3/uL Red Blood Count 4.48 4.35-5.85 10^6/uL Hemoglobin 14.0 13.3-17.7 G/DL Hematocrit 39 L 40-54 % Mean Corpuscular Volume 88 80-99 FL Mean Corpuscular Hemoglobin 31 25-34 PG Mean Corpuscular Hemoglobin Concent 36 32-36 G/DL Red Cell Distribution Width 13.3 10.0-14.5 % Platelet Count 179 130-400 10^3/uL Mean Platelet Volume 9.5 7.4-10.4 FL Neutrophils (%) (Auto) 70 42-75 % Lymphocytes (%) (Auto) 20 12-44 % Monocytes (%) (Auto) 10 0-12 % Eosinophils (%) (Auto) 1 0-10 % Basophils (%) (Auto) 0 0-10 % Neutrophils # (Auto) 4.8 1.8-7.8 X 10^3 Lymphocytes # (Auto) 1.4 1.0-4.0 X 10^3 Monocytes # (Auto) 0.7 0.0-1.0 X 10^3 Eosinophils # (Auto) 0.1 0.0-0.3 10^3/uL Basophils # (Auto) 0.0 0.0-0.1 10^3/uL Prothrombin Time 16.2 H 12.2-14.7 SEC INR Comment 1.3 0.8-1.4 Activated Partial Thromboplast Time 30 24-35 SEC Sodium Level 140 135-145 MMOL/L Potassium Level 4.0 3.6-5.0 MMOL/L Chloride Level 108 H 98-107 MMOL/L Carbon Dioxide Level 21 21-32 MMOL/L Anion Gap 11 5-14 MMOL/L Blood Urea Nitrogen 17 7-18 MG/DL Creatinine 0.79 0.60-1.30 MG/DL Estimat Glomerular Filtration Rate > 60 BUN/Creatinine Ratio 22 Glucose Level 162 H 70-105 MG/DL Calcium Level 9.1 8.5-10.1 MG/DL Total Bilirubin 1.2 H 0.1-1.0 MG/DL Aspartate Amino Transf (AST/SGOT) 17 5-34 U/L Alanine Aminotransferase (ALT/SGPT) 22 0-55 U/L Alkaline Phosphatase 60 40-136 U/L Total Protein 6.8 6.4-8.2 GM/DL Albumin 4.0 3.2-4.5 GM/DL My Orders Orders - VINCE DAILEY Ct Abdomen/Pelvis Wo (09/30/17 13:24) Cbc With Automated Diff (09/30/17 13:24) Comprehensive Metabolic Panel (09/30/17 13:24) Protime With Inr (09/30/17 13:24) Partial Thromboplastin Time (09/30/17 13:24) Vital Signs/I&O 09/30/17 12:31 Temp 98.1 Pulse 91 Resp 18 B/P (MAP) 130/97 (108) Pulse Ox 96 O2 Delivery Room Air Blood Pressure Mean: 108 Progress Progress Note : Time: 13:15 Progress Note Initial evaluation completed. 1410 reviewed labs, no anemia noted. Compared with last CBC, August 2017. [address] Adames, agreed with assessment and plan of care to discharge to home. No additional recommendations at this time. 1445 discharge instructions and return precautions reviewed with patient and his . Recommended follow-up with Dr. CHRISTIANSEN tomorrow. Diagnostic Imaging Diagonstic Imaging: CT Plain Films/CT/US/NM/MRI: abdomen, pelvis Comments NAME: [facility] REC#: [id number] PT STATUS: REG ER : 1945 PHYSICIAN: VINCE DAILEY ADMIT DATE: 09/30/17/ER Draft Date of Exam:09/30/17 CT ABDOMEN/PELVIS WO PROCEDURE: CT abdomen and pelvis without contrast. TECHNIQUE: Multiple contiguous axial images were obtained through the abdomen and pelvis without the use of intravenous contrast. INDICATION: Rectal bleeding. The previous CT abdomen/pelvis exam of 08/20/2011 failed to show any sign acute abnormality of the abdomen or pelvis. On this study , there are few diverticula in the sigmoid and descending colon. There is no evidence for acute diverticulitis however. There is no sign of a mass involving the rectum either. If further study is desired however, then endoscopy would be recommended. The appendix was visualized and is not abnormally thickened. There is no pelvic mass or free fluid collection noted. The urinary bladder is only partially distended and consequently difficult to assess. The prostate gland is enlarged measuring 5.7 cm in maximum transverse diameter (normal 5 cm or less). The liver, spleen, pancreas, adrenals, aorta and inferior cava and kidneys are unremarkable for an acute abnormality. As noted on the prior exam, the gallbladder is surgically absent. The stomach is partially filled with particulate matter and consequently difficult to assess. The heart is mildly enlarged but stable when compared with the prior study. The bone window shows no evidence for a fracture or for destructive lesion. IMPRESSION: 1. There is diverticulosis of the sigmoid and descending colon but there is no evidence for acute diverticulitis. There is no mass that would account for the patient's rectal bleeding. If further studies are desired, then endoscopy would be recommended. 2. There is no acute abnormality of the abdomen or pelvis noted otherwise. 3. The prostate gland is enlarged. 4. There is cardiomegaly. Dictated on workstation # [id number] Dict: 09/30/17 1351 Trans: 09/30/17 1359 CV [id number] Interpreted by: SAVANAH MILLER MD Electronically signed by: Departure Impression Primary Impression: Hematochezia Disposition: 01 HOME, SELF-CARE Condition: Stable Departure-Patient Inst. Decision time for Depature: 14:30 Referrals: ANA RAMESH DO (PCP/Family) Primary Care Physician Patient Instructions: Gastrointestinal Bleeding (DC) Add. Discharge Instructions: Liquid diet for remainder of today and tomorrow morning. Continue taking your home medications. Follow-up with Dr. Christiansen tomorrow if symptoms are not improving or worsen. Return to emergency department as needed. All discharge instructions reviewed with patient and/or family. Voiced understanding. Copy Copies To 1: SAMMI CHRISTIANSEN MD Copies To 2: ANA RAMESH AMY ARNP September 30, 2017 14:04
[2017-09-30 14:06] LABS: ALANINE AMINOTRANSFERASE 22 U/L (0-55); ALKALINE PHOSPHATASE 60 U/L (40-136); BILIRUBIN,TOTAL 1.2 MG/DL (0.1-1.0); BUN/CREATININE RATIO 22; CALCIUM 9.1 MG/DL (8.5-10.1); CARBON DIOXIDE 21 MMOL/L (21-32); CHLORIDE 108 MMOL/L (98-107); CREATININE SERUM 0.79 MG/DL (0.60-1.30); GFR ESTIMATED > 60; GLUCOSE 162 MG/DL (70-105); SODIUM 140 MMOL/L (135-145); TOTAL PROTEIN 6.8 GM/DL (6.4-8.2)
[2017-09-30 14:53] VITALS: BP 137/82
== END 2017-09-30 14:57 | disposition home or self-care (01) ==
LOC: ER 12:21 → EDUNIT# 12:21 → ER 14:57
DX: K92.1 Melena (principal); I48.91 Unspecified atrial fibrillation; I25.10 Atherosclerotic heart disease of native coronary artery without angina pectoris; I10 Essential (primary) hypertension; N40.0 Benign prostatic hyperplasia without lower urinary tract symptoms; K21.9 Gastro-esophageal reflux disease without esophagitis; E11.9 Type 2 diabetes mellitus without complications; F41.9 Anxiety disorder, unspecified; F32.9 Major depressive disorder, single episode, unspecified; Z85.038 Personal history of other malignant neoplasm of large intestine; Z85.828 Personal history of other malignant neoplasm of skin; Z79.01 Long term (current) use of anticoagulants; Z79.02 Long term (current) use of antithrombotics/antiplatelets; Z79.84 Long term (current) use of oral hypoglycemic drugs; Z87.19 Personal history of other diseases of the digestive system; Z98.890 Other specified postprocedural states; Z82.49 Family history of ischemic heart disease and other diseases of the circulatory system
CPT/HCPCS: 36415; 74176; 80053; 85025; 85610; 85730

== ENCOUNTER 2017-10-06 14:22 | Observation (INO) | payer MEDICARE ==
[~2017-10-06] VITALS: Ht 172.7 cm; Wt 95.7 kg
--- OUTSIDE RECORDS SUMMARY | 2017-10-06 14:29 | XMS REPORT | Clinical Summary ---
Author Author [facility] Organization [facility] Address Unknown Phone Unavailable Care Team Providers Care Camp Attendant Name Role Phone Laura Aragon MD PCP Source Comments Some departments are not documenting in the electronic medical record. If you do not see the information that you expected, contact Release of Information in the Health Information Management department at [phone] for further assistance in locating additional records.[facility] Allergies Active Allergy Reactions Severity Noted Date [...] capsule twice daily. Use while 16 taking [place] pain medication cephalexin (KEFLEX) 500 Take 1 capsule by mouth 28 capsule 0 09/06/19 09/13/19 mg capsule four times daily for 7 18 18 days. Active Problems Problem Noted Date Cancer of the skin, basal cell 09/13/2017 Ear mass, left 08/12/2017 Anticoagulated 08/12/2017 Mass of left ear 08/12/2017 Overview: Added automatically from request for surgery [id number] Encounters Date Type Specialty Care Team Description [...] Specimen Performing Laboratory [facility] [address] [place] [address] * SURGICAL PATHOLOGY (09/05/2017 12:16 PM) Only the most recent of 2 results within the time period is included. Component Value Ref Range PATHOLOGY REPORT [facility] [email or web address] Department of Pathology and Laboratory Medicine [address] [place] [address] Surgical Pathology Office:[phone]:[phone] SURGICAL PATHOLOGY REPORT NAME: DEEJAY CAR SURG PATH #: [id number] MR #: [id number] SPECIMEN CLASS: SCA BILLING #: [id number] ALT ID #:LOCATION: [id number] DATE OF PROCEDURE: [...] submitted from superior to inferior as follows: S5Aenqtahijvrvr sections of superior margin. E2-C3Vglvvsks between superior and inferior margin. X7Jigncfjofkexm sections of inferior margin. (sld) 09/05/2017 Intraoperative Consultation: A1FS, skin, "skin margin 12:00 to 3:00", biopsy: Negative for malignancy. B1FS, skin, "skin margin 3:00 to 6:00", biopsy: Negative for malignancy. C1FS, skin, "skin margin 6:00 to 9:00", biopsy: Negative for malignancy. D1FS, skin, "skin margin 9:00 to 12:00", biopsy: Negative for malignancy. Frozen section performed at the [facility], [address] [place] [address]. Specimen Performing Laboratory [facility] RESULTS * [...] Performing Laboratory Blood [facility] [address] [place] [address] * COMPREHENSIVE METABOLIC PANEL (08/23/2017 9:54 AM) [...] Performing Laboratory Blood [facility] [address] [place] [address] * CT NECK W/CONTRAST (08/23/2017 7:52 AM) [...] - 1.24 MG/DL Specimen Performing Laboratory [facility] [address] [place] [address] from Last 3 Months
--- OUTSIDE RECORDS SUMMARY | 2017-10-06 14:29 | XMS REPORT | Encounter Summary ---
Author Author [facility] Organization [facility] Address Unknown Phone Unavailable Care Team Providers Care Pharmacy Intake Coordinator Name Role Phone Laura Aragon MD PCP Encounter Details Date Type Department Care Team Description 09/05/2017 Procedure Pass [place] Operating Room [address] [place] [address] Social History Tobacco Use Types Packs/Day [...]
--- OUTSIDE RECORDS SUMMARY | 2017-10-06 14:29 | XMS REPORT | Encounter Summary ---
Author Author [facility] Organization [facility] Address Unknown Phone Unavailable Care Team Providers Care Open Winder Name Role Phone Laura Aragon MD PCP Reason for Visit * Auth/Cert Status Reason Specialty Diagnoses / Referred By Referred To Procedures Contact Contact Diagnoses Mass of left ear Mass of left ear [H93.8X2] P rocedures AR EXCISION EXTERNAL EAR PARTIAL SIMPLE REPAIR AR ADJT TIS TRNS/REARGMT F/C/C/M/N/A/G/H/ F 10SQCM/< AR SPLIT AGRFT F/S/N/H/F/G/M/D GT 1ST 100 CM/</1 % EXCISION BONE EXTERNAL EAR CANAL ADJACENT TISSUE TRANSFER PEDICLE FLAP DEFECT 10 SQ CM OR LESS - AXILLA GRAFT SKIN SPLIT THICKNESS HEAD/NECK Encounter Details Date Type Department Care Team Description 09/05/2017 Surgery [place] Operating Room Alvino Stone MD PARTIAL AURICULECTOMY [address] [place] [address] [place] [address] RECONSTRUCTION [phone] Social History Tobacco Use Types Packs/Day Years [...] 2017 capsule twice daily. Use while taking [place] pain medication donepezil (ARICEPT) 5 mg Take [...] [facility]. The patient was referred by Dr. Aragon for evaluation of posterior ear mass on the left. He states that he has had this mass for approximately 3-4 years. His primary care doctor has referred for evaluation by load out supervisor for this as well as multiple skin lesions on the face and trunk. He has not been able to see dermatology yet. He states that the mass behind his left ear is tender to the touch, and it bleeds occasionally when rubbed. He appears to have several lesions on the face and trunk concerning for skin cancers. 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 He [...] OF POSTERIOR LEFT EAR LESION Surgeon: Chase Tuberculosis Specialist: Raúl In detail: Consent was obtained and [...] September 05, 2017 Surgeon: Alvino Stone MD Tuberculosis Specialist: Brenda Hernández MD Indications: Deejay Car is a 72 y.o. 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 He presents for surgical excision and reconstruction. Procedures: 39854 - Excision external ear; partial 19010 - Adjacent tissue transfer or rearrangement, any [...] were anesthetized with 1% lidocaine with epinephrine [id number] 26492 - Excision external ear; partial The left [...] and attention was turned to the reconstruction. 36142 - Adjacent tissue transfer or rearrangement, any [...] 100 MG/DL Specimen Performing Laboratory [facility] [address] [place] [address] * SURGICAL PATHOLOGY (09/05/2017 12:16 PM) Component Value Ref Range PATHOLOGY REPORT [facility] [email or web address] Department of Pathology and Laboratory Medicine [address] [place] [address] Surgical Pathology Office:[phone]:[phone] SURGICAL PATHOLOGY REPORT NAME: DEEJAY CAR RAY SURG PATH #: [id number] MR #: [id number] SPECIMEN CLASS: SCA BILLING #: [id number] ALT ID #:LOCATION: [id number] DATE OF PROCEDURE: [...] submitted from superior to inferior as follows: R2Kunicylvhrqdl sections of superior margin. E2-C8Riojbclp between superior and inferior margin. F8Hxrsddosqpvot sections of inferior margin. (sld) 09/05/2017 Intraoperative Consultation: A1FS, skin, "skin margin 12:00 to 3:00", biopsy: Negative for malignancy. B1FS, skin, "skin margin 3:00 to 6:00", biopsy: Negative for malignancy. C1FS, skin, "skin margin 6:00 to 9:00", biopsy: Negative for malignancy. D1FS, skin, "skin margin 9:00 to 12:00", biopsy: Negative for malignancy. Frozen section performed at the [facility], [facility], [address] [place] [address]. Specimen Performing Laboratory LAB RESULTS * POC GLUCOSE (09/05/2017 9:13 AM) Component Value Ref Range Glucose, POC 204 (H) 70 - 100 MG/DL Specimen Performing Laboratory [facility] [address] [place] [address] in this encounter Visit Diagnoses Diagnosis Mass [...]
--- OUTSIDE RECORDS SUMMARY | 2017-10-06 14:29 | XMS REPORT | Encounter Summary ---
Author Author [facility] Organization [facility] Address Unknown Phone Unavailable Care Team Providers Care Slip Cover Operator Name Role Phone Laura Aragon MD PCP Reason for Visit * Reason Comments Post Operative Visit s/p excision external ear with adjacent tissue transfer or rearrangement on 09/05/[address] Stone Encounter Details Date Type Department Care Team Description 09/13/2017 Office Visit [facility] Julio C Batista PA-C Cancer of the skin, basal Physicians - ENT [address] cell 3RD FLOOR POD C [place] [address] [place] [address] OFFICE BLDG [phone] [place] [address] Social History Tobacco Use Types [...]
--- OUTSIDE RECORDS SUMMARY | 2017-10-06 14:29 | XMS REPORT | Encounter Summary ---
Author Author [facility] Organization [facility] Address Unknown Phone Unavailable Care Team Providers Care Plastic Eye Technician Name Role Phone Laura Aragon MD PCP Reason for Visit * Auth/Cert Status Reason Specialty Diagnoses / Referred By Referred To Procedures Contact Contact Diagnoses Mass of left ear Mass of left ear [H93.8X2] P rocedures [place] EXCISION EXTERNAL EAR PARTIAL SIMPLE REPAIR TN ADJT TIS TRNS/REARGMT F/C/C/M/N/A/G/H/ F 10SQCM/< TN SPLIT AGRFT F/S/N/H/F/G/M/D GT 1ST 100 CM/</1 % EXCISION BONE EXTERNAL EAR CANAL ADJACENT TISSUE TRANSFER PEDICLE FLAP DEFECT 10 SQ CM OR LESS - AXILLA GRAFT SKIN SPLIT THICKNESS HEAD/NECK Encounter Details Date Type Department Care Team Description 09/05/2017 Anesthesia [place] Operating Room [facility], [facility] Event [address] [place] [address] Anesthesia Record Procedure Name Responsible Anesthesia Start [...] - 60.0 SQ CM Surgeon: Surgeon(s): Brenda Heránndez MD Bur, Alvino Sinclair MD Post-Anesthesia Vitals [...] Yes Hypertension, No valvular problems/murmurs No past [place], Coronary artery disease No coronary artery bypass [...]
--- OUTSIDE RECORDS SUMMARY | 2017-10-06 14:30 | XMS REPORT | Encounter Summary ---
Author Author [facility] Organization [facility] Address Unknown Phone Unavailable Care Team Providers Care Malariologist Name Role Phone Laura Aragon MD PCP Reason for Referral * Radiology Services (Routine) Status Reason Specialty Diagnoses / Referred By Referred To Procedures Contact Contact Closed Radiology Diagnoses Alvino Stone Mob Ct Mass of left ear MD [address] [employer] [facility] OFFICE [address] NECK [place], [place] W/CONTRAST [address] Phone: Fax: * Radiology Services (Routine) Status Reason Specialty Diagnoses / Referred By Referred To Procedures Contact Contact Closed Radiology Diagnoses Alvino Stone [address] Mass of left ear MD [address] [facility] OFFICE [address] NECK [place], [place] W/CONTRAST [address] Phone: Fax: Reason for Visit * Radiology Services (Routine) Status Reason Specialty Diagnoses / Referred By Referred To Procedures Contact Contact Closed Radiology Diagnoses Alvino Stone Mob Ct Mass of left ear MD [address] [employer] MED OFFICE [address] NECK [place], [place] W/CONTRAST [address] Phone: Fax: Encounter Details Date Type Department Care Team Description 08/23/2017 Hospital [facility] Alvino Stone MD Encounter Hospital Radiology [address] [place] [address] OFFICE BLDG [phone] [address] [place] [address] Social History Tobacco Use Types [...] 2017 capsule twice daily. Use while taking [place] pain medication donepezil (ARICEPT) 5 mg Take [...] Specimen Performing Laboratory [facility] [address] [place] [address] in this encounter Visit Diagnoses Diagnosis Mass [...]
--- OUTSIDE RECORDS SUMMARY | 2017-10-06 14:30 | XMS REPORT | Encounter Summary ---
Author Author [facility] Organization [facility] Address Unknown Phone Unavailable Care Team Providers Care Beader Tender Name Role Phone PCP Unavailable Reason for Visit * Reason Comments Navigation Assessment Encounter Details Date Type Department Care Team Description 08/09/2017 Telephone [facility] Alvino Stone MD Navigation Assessment [facility] Exam [address] [place] [address] [place] [address] [phone] Social History Tobacco Use Types Packs/Day Years [...] Laura Aragon Contact Name & Number: Maki [phone] Laundry Pricing Clerk: Thomas Fung in [place], [place] [phone], last seen 03/2017 Location of Films: none [...] "small blood vessel disease" and follows with sales developer. (requested last OV note from cardiololgy) Prior Treatment (XRT, Surgery, Chemotherapy): none Comments: Pt is , states is pt with urology. 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 in this encounter Plan of Treatment Not on fileas of this encounter Visit Diagnoses Not on filein this encounter
--- OUTSIDE RECORDS SUMMARY | 2017-10-06 14:30 | XMS REPORT | Encounter Summary ---
Author Author [facility] Organization [facility] Address Unknown Phone Unavailable Care Team Providers Care Communications Planner Name Role Phone Laura Aragon MD PCP Encounter Details Date Type Department Care Team Description 08/12/2017 Prep for Case [facility] Alvino Stone MD Mass of left ear (Primary Physicians - ENT [address]) 3RD [place] [address] MED [phone] [place] [address] Social History Tobacco Use Types [...]
--- OUTSIDE RECORDS SUMMARY | 2017-10-06 14:30 | XMS REPORT | Encounter Summary ---
Author Author [facility] Organization [facility] Address Unknown Phone Unavailable Care Team Providers Care Health Analytics Consultant Name Role Phone Laura Aragon MD PCP Encounter Details Date Type Department Care Team Description 08/23/2017 PAC Office Preoperative Assessment Alvino Stone MD Preoperative Visit Clinic [address] [facility] cardiovascular [address] [place] [address] examination (Primary Dx); [place] [address] History of atrial [phone] fibrillation; Mass of left ear; Mass of [...] and any other valuables at home. The [facility] is not responsible for the loss or breakage of personal items. Remove nail swazi, makeup and all jewelry (including piercings) before coming to the hospital. The morning of your procedure: brush your teeth and tongue do not smoke do not shave the area where you will have surgery What to bring to the hospital ID/ Insurance Card Blade Bender Furnace Tender card Official documents for legal guardianship Copy of your Living Will, Advanced Directives, and/or Durable Power of Bulk Sugar Handler Small bag with a few personal belongings [...] to cancel your procedure Notify us at [facility]: if you need to cancel your procedure if you are going to be late Arrival at the [facility] A: ? Park in the P5 parking garage located at [address] [place] [address] (Next to the [facility] A [address] [place] [address]). ? [employer] parking is available in front of [facility] between the hours of 7:00 am and 4:00 pm Saturday through Saturday. ? If parking in the P5 garage, take the east elevators in the parking garage to the second level and walk to the entrance of the [facility]. ? Enter through the 1st floor main [...] your arrival time. Before 4:30 pm, call [phone], and after 4:30 pm, call [phone]. * Pre-Anesthesia Medication Instructions - Dylan Lucia, [...] with any medicine updates or questions. E-mail: [email or web address] Before going home from the hospital, please [...] Performing Laboratory Blood [facility] [address] [place] [address] * CBC (08/23/2017 9:54 AM) Component Value [...] Performing Laboratory Blood [facility] [address] [place] [address] in this encounter Visit Diagnoses Diagnosis Preoperative cardiovascular examination - Primary Pre-operative cardiovascular examination History of atrial fibrillation Personal history of other diseases of circulatory system Mass of left ear Mass of ear auricle, unspecified laterality
--- OUTSIDE RECORDS SUMMARY | 2017-10-06 14:30 | XMS REPORT | Encounter Summary ---
Author Author [facility] Organization [facility] Address Unknown Phone Unavailable Care Team Providers Care Embedded Hardware Engineer Name Role Phone Laura Aragon MD PCP Reason for Visit * Reason Comments Surgery Encounter Details Date Type Department Care Team Description 08/22/2017 Telephone [facility] Alvino Stone MD Surgery Physicians - ENT [address] [place] [address] MED [phone] [place] [address] Social History Tobacco Use Types [...]
--- OUTSIDE RECORDS SUMMARY | 2017-10-06 14:30 | XMS REPORT | Encounter Summary ---
Author Author [facility] Organization [facility] Address Unknown Phone Unavailable Care Team Providers Care Machine Woodworking Sander Name Role Phone Laura Aragon MD PCP Encounter Details Date Type Department Care Team Description 08/12/2017 [facility] MD Other specified disorders Encounter [address] [place] [address] [place] [address] [phone] Social History Tobacco Use Types Packs/Day Years [...] 2017 capsule twice daily. Use while taking [place] pain medication donepezil (ARICEPT) 5 mg Take [...] Component Value Ref Range PATHOLOGY REPORT [facility] www.[employer] Department of Pathology and Laboratory Medicine [address] [place] [address] Surgical Pathology Office:[phone]:[phone] SURGICAL PATHOLOGY REPORT NAME: DEEJAY CAR SURG PATH #: [id number] MR #: [id number] SPECIMEN CLASS: SR BILLING #: [id number] ALT ID #:LOCATION: ENT DATE OF PROCEDURE: [...]
--- OUTSIDE RECORDS SUMMARY | 2017-10-06 14:30 | XMS REPORT | Encounter Summary ---
Author Author [facility] Organization [facility] Address Unknown Phone Unavailable Care Team Providers Care Warehouse Production Worker Name Role Phone Laura Aragon MD PCP Encounter Details Date Type Department Care Team Description 08/12/2017 Procedure Pass [facility] Radiology [address] [facility] OFF[address] [place] [address] Social History Tobacco Use Types [...]
--- OUTSIDE RECORDS SUMMARY | 2017-10-06 14:30 | XMS REPORT | Encounter Summary ---
Author Author [facility] Organization [facility] Address Unknown Phone Unavailable Care Team Providers Care Firer Retort Name Role Phone Laura Aragon MD PCP Reason for Visit * Auth/Cert Status Reason Specialty Diagnoses / Referred By Referred To Procedures Contact Contact Diagnoses Mass of left ear Mass of left ear [H93.8X2] P rocedures ND EXCISION EXTERNAL EAR PARTIAL SIMPLE REPAIR ND ADJT TIS TRNS/REARGMT F/C/C/M/N/A/G/H/ F 10SQCM/< ND SPLIT AGRFT F/S/N/H/F/G/M/D GT 1ST 100 CM/</1 % EXCISION BONE EXTERNAL EAR CANAL ADJACENT TISSUE TRANSFER PEDICLE FLAP DEFECT 10 SQ CM OR LESS - AXILLA GRAFT SKIN SPLIT THICKNESS HEAD/NECK Encounter Details Date Type Department Care Team Description 09/05/2017 [facility] Operating Room Alvino Stone MD Mass of left ear Encounter [address] [facility] [address] [place] [address] [place] [address] [phone] Social History Tobacco Use Types Packs/Day Years [...] 2017 capsule twice daily. Use while taking [place] pain medication donepezil (ARICEPT) 5 mg Take [...] hours): POC Glucose (Download): (!) 204 (09/05/17 1491) I have examined the patient, and there [...] Otolaryngology-Head and Neck Surgery Clinic at the [facility]. The patient was referred by Dr. Aragon for evaluation of posterior ear mass on the left. He states that he has had this mass for approximately 3-4 years. His primary care doctor has referred for evaluation by yarn dyer for this as well as multiple skin lesions on the face and trunk. He has not been able to see dermatology yet. He states that the mass behind his left ear is tender to the touch, and it bleeds occasionally when rubbed. He appears to have several lesions on the face and trunk concerning for skin cancers. 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 He [...] OF POSTERIOR LEFT EAR LESION Surgeon: Chase Credit Control Clerk: Raúl In detail: Consent was obtained and [...] September 05, 2017 Surgeon: Alvino Stone MD Credit Control Clerk: Brenda Hernández MD Indications: Deejay Car is a 72 y.o. 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 He presents for surgical excision and reconstruction. Procedures: 45220 - Excision external ear; partial 50530 - Adjacent tissue transfer or rearrangement, any [...] were anesthetized with 1% lidocaine with epinephrine [id number] 49186 - Excision external ear; partial The left [...] and attention was turned to the reconstruction. 33926 - Adjacent tissue transfer or rearrangement, any [...] 100 MG/DL Specimen Performing Laboratory MAIN LAB [address] [place] [address] * SURGICAL PATHOLOGY (09/05/2017 12:16 PM) Component Value Ref Range PATHOLOGY REPORT [facility] www.[employer] Department of Pathology and Laboratory Medicine [address] [place] [address] Surgical Pathology Office:[phone]:[phone] SURGICAL PATHOLOGY REPORT NAME: DEEJAY CAR RAY SURG PATH #: [id number] MR #: [id number] SPECIMEN CLASS: SCA BILLING #: [id number] ALT ID #:LOCATION: [facility] DATE OF PROCEDURE: 09/05/2017 AGE:72 SEX: M [...] submitted from superior to inferior as follows: C9Htcqnofndpjmg sections of superior margin. E2-H8Uurzvvqp between superior and inferior margin. W3Jgzelsrxrzbaz sections of inferior margin. (sld) 09/05/2017 Intraoperative Consultation: A1FS, skin, "skin margin 12:00 to 3:00", biopsy: Negative for malignancy. B1FS, skin, "skin margin 3:00 to 6:00", biopsy: Negative for malignancy. C1FS, skin, "skin margin 6:00 to 9:00", biopsy: Negative for malignancy. D1FS, skin, "skin margin 9:00 to 12:00", biopsy: Negative for malignancy. Frozen section performed at the [facility] A, [address] [place] [address]. Specimen Performing Laboratory LAB RESULTS * POC GLUCOSE (09/05/2017 9:13 AM) Component Value Ref Range Glucose, POC 204 (H) 70 - 100 MG/DL Specimen Performing Laboratory MAIN LAB [address] [place] [address] in this encounter Visit Diagnoses Diagnosis Ear [...]
--- OUTSIDE RECORDS SUMMARY | 2017-10-06 14:30 | XMS REPORT | Encounter Summary ---
Author Author [facility] Organization [facility] Address Unknown Phone Unavailable Care Team Providers Care Transporter Driver Name Role Phone Laura Aragon MD PCP Reason for Referral * Radiology Services (Routine) Status Reason Specialty Diagnoses / Referred By Referred To Procedures Contact Contact Closed Radiology Diagnoses Alvino Stone Mob Ct Mass of left ear [address] [place], [place] W/CONTRAST [address] Phone: Fax: Reason for Visit * Reason Comments Mass Growth next to the ear * Consult, Test & Treat (Routine) Status Reason Specialty Diagnoses / Referred By Referred To Procedures Contact Contact No Auth Needed Otolaryngology Procedures Alvino Stone MD NEW PATIENT [address] [place] [address] Encounter Details Date Type Department Care Team Description 08/12/2017 Office Visit [facility] Alvino Stone MD Mass of left ear (Primary Physicians - ENT [address] Dx); [address] [address] Ear mass, left; [address] [phone] [place] [phone] Social History Tobacco Use Types Packs/Day Years [...] aspirin without seeking the Approval of your Senior Caregiver. ? Refrain from smoking two weeks before [...] calling . Your surgery is scheduled at [facility]. Park in the parking garage off of [address]. Enter the [facility] through the 1st floor main entrance. Check in with admitting on 1st floor. Please park on the [place] of the Building in the [address]. Once you enter the building, you [...] any facial or eye make-up. Avoid nail finnish. ? You may wear glasses but do not wear contact lenses. ? If you wear dentures, keep them in. ? Bring ID and insurance card with you. DONT TAKE CHANCES! If you are concerned about anything you consider significant, call us at [phone] business hours, ask for your nurse , Minal, or the on-call nurse. After hours ask to speak to the ENT doctor sandstone splitter. in this encounter Progress Notes * Alvino Stone MD - 08/12/2017 9:00 AM CDT Formatting of this note may be different from the original. Chief Complaint Patient presents with Mass Growth next to the ear History of Present Illness: Deejay Car is a 72 y.o. year old male evaluated on 08/12/2017, in the Otolaryngology-Head and Neck Surgery Clinic at the [facility]. The patient was referred by Dr. Aragon for evaluation of posterior ear mass on the left. He states that he has had this mass for approximately 3-4 years. His primary care doctor has referred for evaluation by petroleum inspector supervisor for this as well as multiple skin lesions on the face and trunk. He has not been able to see dermatology yet. He states that the mass behind his left ear is tender to the touch, and it bleeds occasionally when rubbed. He appears to have several lesions on the face and trunk concerning for skin cancers. 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 He [...] OF POSTERIOR LEFT EAR LESION Surgeon: Chase Professor Of German: Raúl In detail: Consent was obtained and [...]
--- OUTSIDE RECORDS SUMMARY | 2017-10-06 14:33 | XMS REPORT | Continuity of Care Document ---
Author Author [facility] Organization [facility] Address Unknown Phone Unavailable Allergies Active Description Code Type Severity Reaction Onset Reported/Identified Relationship to Patient Clinical Status Yes NKANo Known Allergies NKA Miscellaneous Allergy Mild N/A 09/19/2017 Medications There is no data. Problems Date Dx Coded Attending Type Code Diagnosis Diagnosed By 06/07/2010 Ot 401.9 06/07/2010 Ot 552.1 06/07/2010 Ot 562.10 06/07/2010 Ot 574.10 06/07/2010 Ot V12.72 06/07/2010 Ot V58.69 10/04/2010 Ot 722.52 10/04/2010 Ot 850.5 10/04/2010 Ot 920 10/04/2010 Ot 922.31 10/04/2010 Ot 959.01 10/04/2010 Ot E000.0 10/04/2010 Ot E849.8 10/04/2010 Ot E885.9 01/13/2011 Ot 724.2 LUMBAGO 01/13/2011 Ot 846.0 SPRAIN LUMBOSACRAL 01/13/2011 Ot E000.0 CIVILIAN ACTIVITY DONE FOR INCOME OR PAY 01/13/2011 Ot E029.9 OTHER ACTIVITY 01/13/2011 Ot E849.0 ACCIDENT IN HOME 01/13/2011 Ot E928.8 ACCIDENT NEC 08/20/2011 Ot 550.90 UNILAT INGUINAL HERNIA 08/20/2011 Ot 724.5 BACKACHE NOS 08/20/2011 Ot 789.09 ABDOMINAL PAIN, OTHER SPECIFIED SITE 10/29/2011 Ot 722.52 LUMB/ LUMBOSAC DISC DEGEN 10/29/2011 Ot V57.1 PHYSICAL THERAPY NEC 04/30/2014 Ot 574.20 04/30/2014 Ot 250.00 04/30/2014 Ot 272.4 04/30/2014 Ot 780.79 04/30/2014 Ot 789.00 04/30/2014 Ot 211.3 04/30/2014 Ot 574.20 04/30/2014 Ot V72.63 04/30/2014 Ot V74.8 04/30/2014 Ot 722.51 04/30/2014 Ot 722.52 04/30/2014 Ot 722.52 04/30/2014 ORENDER DO, LAURA S Ot 250.00 04/30/2014 ORENDER DO, LAURA S Ot 274.9 04/30/2014 ORENDER DO, LAURA S Ot 780.79 04/30/2014 ORENDER DO, LAURA S Ot V76.44 04/30/2014 ORENDER DO, LAURA S Ot 250.00 04/30/2014 ORENDER DO, LAURA S Ot 780.79 04/30/2014 CHAS CHUA MD Ot 487.1 FLU W RESP MANIFEST NEC 04/30/2014 CHAS CHUA MD Ot 786.2 COUGH 07/31/2014 Ot 574.20 07/31/2014 Ot 250.00 07/31/2014 Ot 272.4 07/31/2014 Ot 780.79 07/31/2014 Ot 789.00 07/31/2014 Ot 211.3 07/31/2014 Ot 574.20 07/31/2014 Ot V72.63 07/31/2014 Ot V74.8 07/31/2014 Ot 722.51 07/31/2014 Ot 722.52 07/31/2014 Ot 722.52 07/31/2014 ORENDER DO, LAURA S Ot 250.00 07/31/2014 ORENDER DO, LAURA S Ot 274.9 07/31/2014 ORENDER DO, LAURA S Ot 780.79 07/31/2014 ORENDER DO, LAURA S Ot V76.44 07/31/2014 ORENDER DO, LAURA S Ot 250.00 07/31/2014 ORENDER DO, LAURA S Ot 780.79 07/31/2014 CECILIA ELY, SAVANNAH Sinclair Ot 709.9 07/31/2014 CECILIA ELY, SAVANNAH Sinclair Ot V72.81 07/31/2014 CCEILIA ELY, SAVANNAH Sinclair Ot V74.8 08/04/2014 CECILIA ELY, SAVANNAH Sinclair Ot 216.7 BENIGN SHERON SKIN LEG 08/04/2014 SAVANNAH BROOKS MD Ot 250.00 DIAB JOSE WO COMPL, TYPE II OR UNSPEC TY 08/10/2014 SAVANNAH BROOKS MD Ot 709.9 08/10/2014 SAVANNAH BROOKS MD Ot V72.81 08/10/2014 SAVANNAH BROOKS MD Ot V74.8 08/12/2014 SKYLAR CAMPOS MD Ot 250.00 08/12/2014 SKYLAR CAMPOS MD Ot 401.9 08/12/2014 SKYLAR CAMPOS MD Ot 427.31 08/12/2014 SKYLAR CAMPOS MD Ot 530.81 08/18/2014 SKYLAR CAMPOS MD Ot 250.00 08/18/2014 SKYLAR CAMPOS MD Ot 401.9 08/18/2014 SKYLAR CAMPOS MD Ot 427.31 08/18/2014 SKYLAR CAMPOS MD Ot 530.81 08/19/2014 SKYLAR CAMPOS MD Ot 250.00 08/19/2014 SKYLAR CAMPOS MD Ot 401.9 08/19/2014 SKYLAR CAMPOS MD Ot 427.31 08/19/2014 SKYLAR CAMPOS MD Ot 530.81 08/22/2014 TONE RON Ot V67.9 FOLLOW-UP EXAM NOS 09/01/2014 SKYLAR CAMPOS MD Ot 250.00 DIAB JOSE WO COMPL, TYPE II OR UNSPEC TY 09/01/2014 SKYLAR CAMPOS MD Ot 272.4 HYPERLIPIDEMIA NEC/NOS 09/01/2014 SKYLAR CAMPOS MD Ot 401.9 HYPERTENSION NOS 09/01/2014 SKYLAR CAMPOS MD Ot 414.01 CORONARY ATHEROSCLEROSIS OF [place] CORON 09/01/2014 SKYLAR CAMPOS MD Ot 427.31 ATRIAL FIBRILLATION 09/01/2014 SKYLAR CAMPOS MD Ot 428.0 CONGESTIVE HEART FAILURE NOS 09/01/2014 SKYLAR CAMPOS MD Ot 428.22 CHRONIC SYSTOLIC HRT FAILURE 09/01/2014 SKYLAR CAMPOS MD Ot 794.30 ABN CARDIOVASC STUDY NOS 09/01/2014 SKYLAR CAMPOS MD Ot V15.82 HISTORY OF TOBACCO USE 09/01/2014 SKYLAR CAMPOS MD Ot V58.69 OT MED,LT,CURRENT USE 09/16/2014 Ot 574.20 09/16/2014 Ot 250.00 09/16/2014 Ot 272.4 09/16/2014 Ot 780.79 09/16/2014 Ot 789.00 09/16/2014 Ot 211.3 09/16/2014 Ot 574.20 09/16/2014 Ot V72.63 09/16/2014 Ot V74.8 09/16/2014 Ot 722.51 09/16/2014 Ot 722.52 09/16/2014 Ot 722.52 09/16/2014 ORENDER DO, LAURA S Ot 250.00 09/16/2014 ORENDER DO, LAURA S Ot 274.9 09/16/2014 ORENDER DO, LAURA S Ot 780.79 09/16/2014 ORENDER DO, LAURA S Ot V76.44 09/16/2014 ORENDER DO, LAURA S Ot 250.00 09/16/2014 ORENDER DO, LAURA S Ot 780.79 09/16/2014 CECILIA ELY, SAVANNAH M Ot 709.9 09/16/2014 CECILIA ELY, SAVANNAH M Ot V72.81 09/16/2014 CECILIA ELY, SAVANNAH M Ot V74.8 09/16/2014 BETH ELY, SKYLAR J Ot 250.00 09/16/2014 BETH ELY, SKYLAR J Ot 401.9 09/16/2014 BETH ELY, SKYLAR Narvaez Ot 427.31 09/16/2014 BETH ELY, SKYLAR Narvaez Ot 530.81 09/16/2014 BETH ELY, SKYLAR J Ot 250.00 09/16/2014 BETH ELY, SKYLAR J Ot 401.9 09/16/2014 BETH ELY, SKYLAR J Ot 427.31 09/16/2014 BETH ELY, SKYLAR J Ot 530.81 09/16/2014 BETH ELY, SKYLAR J Ot 250.00 09/16/2014 BETH ELY, SKYLAR J Ot 401.9 09/16/2014 BETH ELY, SKYLAR J Ot 427.31 09/16/2014 BETH ELY, SKYLAR Narvaez Ot 530.81 09/16/2014 Ot 574.20 09/16/2014 Ot 250.00 09/16/2014 Ot 272.4 09/16/2014 Ot 780.79 09/16/2014 Ot 789.00 09/16/2014 Ot 211.3 09/16/2014 Ot 574.20 09/16/2014 Ot V72.63 09/16/2014 Ot V74.8 09/16/2014 Ot 722.51 09/16/2014 Ot 722.52 09/16/2014 Ot 722.52 09/16/2014 ORENDER DO, LAURA S Ot 250.00 09/16/2014 ORENDER DO, LAURA S Ot 274.9 09/16/2014 ORENDER DO, LAURA S Ot 780.79 09/16/2014 ORENDER DO, LAURA S Ot V76.44 09/16/2014 ORENDER DO, LAURA S Ot 250.00 09/16/2014 ORENDER DO, LAURA S Ot 780.79 09/16/2014 CECILIA ELY, SAVANNAH Sinclair Ot 709.9 09/16/2014 CECILIA ELY, SAVANNAH M Ot V72.81 09/16/2014 CECILIA ELY, SAVANNAH M Ot V74.8 09/16/2014 BETH ELY, SKYLAR J Ot 250.00 09/16/2014 BETH ELY, SKYLAR J Ot 401.9 09/16/2014 BETH ELY, SKYLAR J Ot 427.31 09/16/2014 BETH ELY, SKYLAR J Ot 530.81 09/16/2014 EBTH ELY, SKYLAR J Ot 250.00 09/16/2014 BETH ELY, SKYLAR J Ot 401.9 09/16/2014 BETH ELY, SKYLAR J Ot 427.31 09/16/2014 BETH ELY, SKYLAR J Ot 530.81 09/16/2014 BETH ELY, SKYLAR J Ot 250.00 09/16/2014 BETH ELY, SKYLAR J Ot 401.9 09/16/2014 BETH ELY, SKYLAR J Ot 427.31 09/16/2014 BETH ELY, SKYLAR Narvaez Ot 530.81 09/16/2014 Ot 574.20 09/16/2014 Ot 250.00 09/16/2014 Ot 272.4 09/16/2014 Ot 780.79 09/16/2014 Ot 789.00 09/16/2014 Ot 211.3 09/16/2014 Ot 574.20 09/16/2014 Ot V72.63 09/16/2014 Ot V74.8 09/16/2014 Ot 722.51 09/16/2014 Ot 722.52 09/16/2014 Ot 722.52 09/16/2014 ORENDER DO, LAURA S Ot 250.00 09/16/2014 ORENDER DO, LAURA S Ot 274.9 09/16/2014 ORENDER DO, LAURA S Ot 780.79 09/16/2014 ORENDER DO, LAURA S Ot V76.44 09/16/2014 ORENDER DO, LAURA S Ot 250.00 09/16/2014 ORENDER DO, LAURA S Ot 780.79 09/16/2014 CECILIA ELY, SAVANNAH Sinclair Ot 709.9 09/16/2014 CECILIA ELY, SAVANNAH Sinclair Ot V72.81 09/16/2014 CECILIA ELY, SAVANNAH Sinclair Ot V74.8 09/16/2014 BETH ELY, SKYLAR J Ot 250.00 09/16/2014 BETH ELY, SKYLAR J Ot 401.9 09/16/2014 BETH ELY, SKYLAR J Ot 427.31 09/16/2014 BETH ELY, SKYLAR J Ot 530.81 09/16/2014 BETH ELY, SKYLAR J Ot 250.00 09/16/2014 BETH ELY, SKYLAR J Ot 401.9 09/16/2014 BETH ELY, SKYLAR J Ot 427.31 09/16/2014 BETH ELY, SKYLAR J Ot 530.81 09/16/2014 BETH ELY, SKYLAR J Ot 250.00 09/16/2014 BETH ELY, SKYLAR J Ot 401.9 09/16/2014 BETH ELY, SKYLAR J Ot 427.31 09/16/2014 BETH ELY, SKYLAR J Ot 530.81 10/18/2014 ORENDER DO, LAURA S Ot 250.00 10/18/2014 ORENDER DO, LAURA S Ot 274.9 10/18/2014 Ot 574.20 10/18/2014 Ot 250.00 10/18/2014 Ot 272.4 10/18/2014 Ot 780.79 10/18/2014 Ot 789.00 10/18/2014 Ot 211.3 10/18/2014 Ot 574.20 10/18/2014 Ot V72.63 10/18/2014 Ot V74.8 10/18/2014 Ot 722.51 10/18/2014 Ot 722.52 10/18/2014 Ot 722.52 10/18/2014 ORENDER DO, LAURA S Ot 250.00 10/18/2014 ORENDER DO, LAURA S Ot 274.9 10/18/2014 ORENDER DO, LAURA S Ot 780.79 10/18/2014 ORENDER DO, LAURA S Ot V76.44 10/18/2014 ORENDER DO, LAURA S Ot 250.00 10/18/2014 ORENDER DO, LAURA S Ot 780.79 10/18/2014 CECILIA ELY, SAVANNAH Sinclair Ot 709.9 10/18/2014 CECILIA ELY, SAVANNAH Sinclair Ot V72.81 10/18/2014 CECILIA ELY, SAVANNAH Sinclair Ot V74.8 10/18/2014 BETH ELY, SKYLAR J Ot 250.00 10/18/2014 BETH ELY, SKYLAR J Ot 401.9 10/18/2014 BETH ELY, SKYLAR J Ot 427.31 10/18/2014 BETH ELY, SKYLAR J Ot 530.81 10/18/2014 BETH ELY, SKYLAR J Ot 250.00 10/18/2014 BETH ELY, SKYLAR J Ot 401.9 10/18/2014 BETH ELY, SKYLAR J Ot 427.31 10/18/2014 BETH ELY, SKYLAR J Ot 530.81 10/18/2014 BETH ELY, CARSONHAR J Ot 250.00 10/18/2014 BETH ELY, BASHAR J Ot 401.9 10/18/2014 BETH ELY, CARSONHAR J Ot 427.31 10/18/2014 BETH ELY, SKYLAR J Ot 530.81 10/18/2014 ORENDER DO, LAURA S Ot 250.00 10/18/2014 ORENDER DO, LAURA S Ot 274.9 10/22/2014 BETH ELY, SKYLAR J Ot 250.00 10/22/2014 BETH ELY, SKYLAR J Ot 401.9 10/22/2014 BETH ELY, BASHAR J Ot 427.31 10/22/2014 BETH ELY, SKYLAR Narvaez Ot 530.81 10/22/2014 BETH ELY, SKYLAR Narvaez Ot 250.00 10/22/2014 BETH ELY, SKYLAR Narvaez Ot 401.9 10/22/2014 BETH ELY, SKYLAR Narvaez Ot 427.31 10/22/2014 BETH ELY, SKYLAR Narvaez Ot 530.81 03/21/2015 ORENDER DO, LAURA S Ot E11.9 03/21/2015 SHIRANDER DO, LAURA S Ot I25.10 03/21/2015 SHIRANDER DO, LAURA S Ot R53.83 05/16/2015 AMBER ELY, DANIEL Markham Ot I51.7 CARDIOMEGALY 05/16/2015 AMBER ELY, DANIEL Markham Ot R06.00 DYSPNEA, UNSPECIFIED 05/16/2015 AMBER ELY, DANIEL Markham Ot R07.89 OTHER CHEST PAIN 07/11/2015 MARÍA SALAMANCA Ot I10 07/11/2015 EVELYN HUGGINS, MARÍA K Ot I25.10 07/11/2015 EVELYN HUGGINS, MARÍA K Ot I48.2 07/11/2015 EVELYN HUGGINS, MARÍA K Ot R07.89 07/18/2015 EVELYN HUGGINS, MARÍA K Ot I10 07/18/2015 EVELYN HUGGINS, MARÍA K Ot I25.10 07/18/2015 EVELYN HUGGINS, MARÍA K Ot I48.2 07/18/2015 MARÍA SALAMANCA K Ot R07.89 09/12/2015 ANTHONY ARAGON DOQUELINE S Ot B34.9 VIRAL INFECTION, UNSPECIFIED 09/12/2015 SHIRANDER ANTHONY WINTERSLAURA S Ot E11.9 TYPE 2 DIABETES MELLITUS WITHOUT COMPLIC 09/12/2015 SHIRANDER ANTHONY WINTERSLAURA S Ot E78.5 HYPERLIPIDEMIA, UNSPECIFIED 09/12/2015 SHIRANDER DO LAURA S Ot I11.0 HYPERTENSIVE HEART DISEASE WITH HEART FA 09/12/2015 SHIRANDER DO LAURA S Ot I25.10 ATHSCL HEART DISEASE OF [place] CORONARY 09/12/2015 SHIRANDOPAL WINTERS LAURA S Ot I48.91 UNSPECIFIED ATRIAL FIBRILLATION 09/12/2015 SHIRANDER DO, LAURA S Ot I50.30 UNSPECIFIED DIASTOLIC (CONGESTIVE) HEART 09/12/2015 SHIRANDER DO, LAURA S Ot I95.9 HYPOTENSION, UNSPECIFIED 09/12/2015 SHIRANDER DO, LAURA S Ot R07.89 OTHER CHEST PAIN 09/12/2015 SHIRANDER DO, LAURA S Ot R53.83 OTHER FATIGUE 09/12/2015 SHIRANDER DO, LAURA S Ot Z87.891 PERSONAL HISTORY OF NICOTINE DEPENDENCE 09/12/2015 SHIRANDER DO, LAURA S Ot Z98.61 CORONARY ANGIOPLASTY STATUS 09/12/2015 SHIRANDER , LAURA S Ot B34.9 VIRAL INFECTION, UNSPECIFIED 09/12/2015 SHIRANDER DO, LAURA S Ot E11.9 TYPE 2 DIABETES MELLITUS WITHOUT COMPLIC 09/12/2015 SHIRANDER MAURY WINTERSLINE S Ot E78.5 HYPERLIPIDEMIA, UNSPECIFIED 09/12/2015 SHIRANDER MAURY WINTERSLINE S Ot I11.0 HYPERTENSIVE HEART DISEASE WITH HEART FA 09/12/2015 SHIRANDER , LAURA S Ot I25.10 ATHSCL HEART DISEASE OF [place] CORONARY 09/12/2015 SHIRANDER , LAURA S Ot I48.91 UNSPECIFIED ATRIAL FIBRILLATION 09/12/2015 LOIER , LAURA S Ot I50.30 UNSPECIFIED DIASTOLIC (CONGESTIVE) HEART 09/12/2015 LOIER MAURY WINTERSLINE S Ot I95.9 HYPOTENSION, UNSPECIFIED 09/12/2015 SHIRANDER DOMAURYLAURA S Ot R07.89 OTHER CHEST PAIN 09/12/2015 SHIRANDER DO, LAURA S Ot R53.83 OTHER FATIGUE 09/12/2015 SHIRANDER DO, LAURA S Ot Z87.891 PERSONAL HISTORY OF NICOTINE DEPENDENCE 09/12/2015 SHIRANDER , LAURA S Ot Z98.61 CORONARY ANGIOPLASTY STATUS 09/29/2015 Ot E11.65 TYPE 2 DIABETES MELLITUS WITH HYPERGLYCE 10/21/2015 Ot E11.65 TYPE 2 DIABETES MELLITUS WITH HYPERGLYCE 01/17/2016 JUAN DIEGO SOTELO LAPPER Ot E11.9 TYPE 2 DIABETES MELLITUS WITHOUT COMPLIC 01/17/2016 JUAN DIEGO SOTELO LAPPER Ot I10 ESSENTIAL (PRIMARY) HYPERTENSION 01/17/2016 JUAN DIEGO SOTELO Cora LAPPER Ot I25.10 ATHSCL HEART DISEASE OF [place] CORONARY 01/17/2016 JUAN DIEGO SOTELO Cora LAPPER Ot Z12.5 ENCOUNTER FOR SCREENING FOR MALIGNANT NE 05/08/2016 Ot 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 05/08/2016 Ot 722.52 LUMB/ LUMBOSAC DISC DEGEN 05/08/2016 Ot 722.52 LUMB/ LUMBOSAC DISC DEGEN 05/08/2016 ORENDER DO, LAURA S Ot 250.00 DIAB JOSE WO COMPL, TYPE II OR UNSPEC TY 05/08/2016 ORENDER DO, LAURA S Ot 274.9 GOUT NOS 05/08/2016 ORENDER DO, LAURA S Ot 780.79 OTH MALAISE FATIGUE 05/08/2016 ORENDER DO, LAURA S Ot V76.44 SCREEN MAL NEOP-PROSTATE 05/08/2016 ORENDER DO, LAURA S Ot 250.00 DIAB JOSE WO COMPL, TYPE II OR UNSPEC TY 05/08/2016 ORENDER DO, LAURA S Ot 780.79 OTH MALAISE FATIGUE 05/08/2016 CECILIA ELY, SAVANNAH Sinclair Ot 709.9 SKIN DISORDER NOS 05/08/2016 CECILIA ELY, SAVANNAH Sinclair Ot V72.81 SCOG-ZHO-NXHBHPSIA CARDIOVASCULAR 05/08/2016 CECILIA ELY, SAVANNAH Sinclair Ot V74.8 SCREEN-BACTERIAL DIS NEC 05/08/2016 BETH ELY, SKYLAR Narvaez Ot 250.00 DIAB JOSE WO COMPL, TYPE II OR UNSPEC TY 05/08/2016 SKYLAR CAMPOS MD Ot 401.9 HYPERTENSION NOS 05/08/2016 SKYLAR CAMPOS MD Ot 427.31 ATRIAL FIBRILLATION 05/08/2016 SKYLAR CAMPOS MD Ot 530.81 ESOPHAGEAL REFLUX 05/08/2016 SKYLAR CAMPOS MD Ot 250.00 DIAB JOSE WO COMPL, TYPE II OR UNSPEC TY 05/08/2016 SKYLAR CAMPOS MD Ot 401.9 HYPERTENSION NOS 05/08/2016 SKYLAR CAMPOS MD J Ot 427.31 ATRIAL FIBRILLATION 05/08/2016 SKYLAR CAMPOS MD Ot 530.81 ESOPHAGEAL REFLUX 05/08/2016 SKYALR CAMPOS MD J Ot 250.00 DIAB JOSE WO COMPL, TYPE II OR UNSPEC TY 05/08/2016 BETH ELY, SKYLAR Narvaez Ot 401.9 HYPERTENSION NOS 05/08/2016 BETH ELY, SKYLAR Narvaez Ot 427.31 ATRIAL FIBRILLATION 05/08/2016 SKYLAR CAMPOS MD Ot 530.81 ESOPHAGEAL REFLUX 05/08/2016 ANTHONY ARAGON DOQUELINE S Ot 250.00 DIAB JOSE WO COMPL, TYPE II OR UNSPEC TY 05/08/2016 SHIRANDER DO LAURA S Ot 274.9 GOUT NOS 05/08/2016 ANTHONY ARAGON DOQUELINE S Ot E11.9 TYPE 2 DIABETES MELLITUS WITHOUT COMPLIC 05/08/2016 ANTHONY ARAGON DOQUELINE S Ot I25.10 ATHSCL HEART DISEASE OF [place] CORONARY 05/08/2016 LAURA ARAGON DO S Ot R53.83 OTHER FATIGUE 05/08/2016 MARÍA SALAMANCA Ot I10 ESSENTIAL (PRIMARY) HYPERTENSION 05/08/2016 MARÍA SALAMANCA Ot I25.10 ATHSCL HEART DISEASE OF [place] CORONARY 05/08/2016 MAÍRA SALAMANCA Ot I48.2 CHRONIC ATRIAL FIBRILLATION 05/08/2016 MARÍA SALAMANCA Ot R07.89 OTHER CHEST PAIN 05/08/2016 MARÍA SALAMANCA Ot I10 ESSENTIAL (PRIMARY) HYPERTENSION 05/08/2016 MARÍA SALAMANCA Ot I25.10 ATHSCL HEART DISEASE OF [place] CORONARY 05/08/2016 MARÍA SALAMANCA Ot I48.2 CHRONIC ATRIAL FIBRILLATION 05/08/2016 MARÍA SALAMANCA Ot R07.89 OTHER CHEST PAIN 05/08/2016 Ot E11.65 TYPE 2 DIABETES MELLITUS WITH HYPERGLYCE 05/08/2016 JUAN DIEGO SOTELO LAPPER Ot E11.9 TYPE 2 DIABETES MELLITUS WITHOUT COMPLIC 05/08/2016 JUAN DIEGO SOTELO APRN Ot I10 ESSENTIAL (PRIMARY) HYPERTENSION 05/08/2016 JUAN DIEGO SOTELO APRN Ot I25.10 ATHSCL HEART DISEASE OF [place] CORONARY 05/08/2016 JUAN DIEGO SOTELO APRN Ot Z12.5 ENCOUNTER FOR SCREENING FOR MALIGNANT NE 05/09/2016 SKYLAR CAMPOS MD Ot E11.9 TYPE 2 DIABETES MELLITUS WITHOUT COMPLIC 05/09/2016 SKYLAR CAMPOS MD Ot I10 ESSENTIAL (PRIMARY) HYPERTENSION 05/09/2016 SKYLAR CAMPOS MD Ot I25.10 ATHSCL HEART DISEASE OF [place] CORONARY 05/09/2016 SKYLAR CAMPOS MD Ot I48.2 CHRONIC ATRIAL FIBRILLATION 05/09/2016 SKYLAR CAMPOS MD Ot K21.9 GASTRO-ESOPHAGEAL REFLUX DISEASE WITHOUT 05/09/2016 SKYLAR CAMPOS MD Ot R07.89 OTHER CHEST PAIN 05/09/2016 SKYLAR CAMPOS MD Ot Z79.01 [facility] (CURRENT) USE OF ANTICOAGULANT 05/09/2016 SKYLAR CAMPOS MD Ot Z79.899 OTHER PROCUREMENT OFFICER (CURRENT) DRUG THERAPY 05/09/2016 SKYLAR CAMPOS MD Ot Z95.5 PRESENCE OF CORONARY ANGIOPLASTY IMPLANT 06/07/2016 SKYLAR CAMPOS MD Ot E11.9 TYPE 2 DIABETES MELLITUS WITHOUT COMPLIC 06/07/2016 SKYLAR CAMPOS MD Ot I10 ESSENTIAL (PRIMARY) HYPERTENSION 06/07/2016 SKYLAR CAMPOS MD Ot I25.10 ATHSCL HEART DISEASE OF [place] CORONARY 06/07/2016 SKYLAR CAMPOS MD Ot I48.2 CHRONIC ATRIAL FIBRILLATION 06/07/2016 SKYLAR CAMPOS MD Ot K21.9 GASTRO-ESOPHAGEAL REFLUX DISEASE WITHOUT 06/07/2016 SKYLAR CAMPOS MD Ot R07.89 OTHER CHEST PAIN 06/07/2016 SKYLAR CAMPOS MD Ot Z79.01 [facility] (CURRENT) USE OF ANTICOAGULANT 06/07/2016 SKYLAR CAMPOS MD Ot Z79.899 OTHER PROCUREMENT OFFICER (CURRENT) DRUG THERAPY 06/07/2016 SKYLAR CAMPOS MD Ot Z95.5 PRESENCE OF CORONARY ANGIOPLASTY IMPLANT 06/12/2016 Ot 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 06/12/2016 Ot 722.52 LUMB/ LUMBOSAC DISC DEGEN 06/12/2016 Ot 722.52 LUMB/ LUMBOSAC DISC DEGEN 06/12/2016 LAURA ARAGON DO Ot 250.00 DIAB JOSE WO COMPL, TYPE II OR UNSPEC TY 06/12/2016 LAURA ARAGON DO Ot 274.9 GOUT NOS 06/12/2016 ORENDER DO, LAURA S Ot 780.79 OTH MALAISE FATIGUE 06/12/2016 SHIRANDER , LAURA S Ot V76.44 SCREEN MAL NEOP-PROSTATE 06/12/2016 DOMITILA WINTERS, LAURA S Ot 250.00 DIAB JOSE WO COMPL, TYPE II OR UNSPEC TY 06/12/2016 SHIRANDER DO, LAURA S Ot 780.79 OTH MALAISE FATIGUE 06/12/2016 CECILIA ELY, SAVANNAH Sinclair Ot 709.9 SKIN DISORDER NOS 06/12/2016 CECILIA ELY, SAVANNAH Sinclair Ot V72.81 [id number] CARDIOVASCULAR 06/12/2016 CECILIA ELY, SAVANNAH Sinclair Ot V74.8 SCREEN-BACTERIAL DIS NEC 06/12/2016 SKYLAR CAMPOS MD Ot 250.00 DIAB JOSE WO COMPL, TYPE II OR UNSPEC TY 06/12/2016 SKYLAR CAMPOS MD Ot 401.9 HYPERTENSION NOS 06/12/2016 SKYLAR CAMPOS MD J Ot 427.31 ATRIAL FIBRILLATION 06/12/2016 SKYLAR CAMPOS MD J Ot 530.81 ESOPHAGEAL REFLUX 06/12/2016 SKYLAR CAMPOS MD J Ot 250.00 DIAB JOSE WO COMPL, TYPE II OR UNSPEC TY 06/12/2016 SKYLAR CAMPOS MD J Ot 401.9 HYPERTENSION NOS 06/12/2016 SKYLAR CAMPOS MD J Ot 427.31 ATRIAL FIBRILLATION 06/12/2016 SKYLAR CAMPOS MD J Ot 530.81 ESOPHAGEAL REFLUX 06/12/2016 SKYLAR CAMPOS MD J Ot 250.00 DIAB JOSE WO COMPL, TYPE II OR UNSPEC TY 06/12/2016 SKYLAR CAMPOS MD J Ot 401.9 HYPERTENSION NOS 06/12/2016 SKYLAR CAMPOS MD J Ot 427.31 ATRIAL FIBRILLATION 06/12/2016 SKYLAR CAMPOS MD J Ot 530.81 ESOPHAGEAL REFLUX 06/12/2016 SHIRANDOPAL WINTERS, LAURA S Ot 250.00 DIAB JOSE WO COMPL, TYPE II OR UNSPEC TY 06/12/2016 ANTHONY ARAGON DOQUELINE S Ot 274.9 GOUT NOS 06/12/2016 DOMITILA WINTERS, LAURA S Ot E11.9 TYPE 2 DIABETES MELLITUS WITHOUT COMPLIC 06/12/2016 ANTHONY ARAGON DOQUELINE S Ot I25.10 ATHSCL HEART DISEASE OF [place] CORONARY 06/12/2016 ANTHONY ARAGON DOQUELINE S Ot R53.83 OTHER FATIGUE 06/12/2016 MARÍA SALAMANCA Ot I10 ESSENTIAL (PRIMARY) HYPERTENSION 06/12/2016 MARÍA SALAMANCA Ot I25.10 ATHSCL HEART DISEASE OF [place] CORONARY 06/12/2016 MARÍA SALAMANCA Ot I48.2 CHRONIC ATRIAL FIBRILLATION 06/12/2016 MARÍA SALAMANCA Ot R07.89 OTHER CHEST PAIN 06/12/2016 MARÍA SALAMANCA Ot I10 ESSENTIAL (PRIMARY) HYPERTENSION 06/12/2016 MARÍA SALAMANCA Ot I25.10 ATHSCL HEART DISEASE OF [place] CORONARY 06/12/2016 MARÍA SALAMANCA Ot I48.2 CHRONIC ATRIAL FIBRILLATION 06/12/2016 MARÍA SALAMANCA Ot R07.89 OTHER CHEST PAIN 06/12/2016 Ot E11.65 TYPE 2 DIABETES MELLITUS WITH HYPERGLYCE 06/12/2016 JUAN DIEGO SOTELO LAPPER Ot E11.9 TYPE 2 DIABETES MELLITUS WITHOUT COMPLIC 06/12/2016 JUAN DIEGO SOTELO LAPPER Ot I10 ESSENTIAL (PRIMARY) HYPERTENSION 06/12/2016 JUAN DIEGO SOTELO APRN Ot I25.10 ATHSCL HEART DISEASE OF [place] CORONARY 06/12/2016 JUAN DIEGO SOTELO APRN Ot Z12.5 ENCOUNTER FOR SCREENING FOR MALIGNANT NE 08/29/2016 Ot 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 08/29/2016 Ot 722.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/ LUMBOSAC DISC DEGEN 08/29/2016 Ot 722.52 LUMB/ LUMBOSAC DISC DEGEN 08/29/2016 DOMITILA WINTERS, LAURA S Ot 250.00 DIAB JOSE WO COMPL, TYPE II OR UNSPEC TY 08/29/2016 SHIRANDOPAL WINTERS, LAURA S Ot 274.9 GOUT NOS 08/29/2016 DOMITILA WINTERS, LAURA S Ot 780.79 OTH MALAISE FATIGUE 08/29/2016 DOMITILA WINTERS, LAURA S Ot V76.44 SCREEN MAL NEOP-PROSTATE 08/29/2016 DOMITILA WINTERS, LAURA S Ot 250.00 DIAB JOSE WO COMPL, TYPE II OR UNSPEC TY 08/29/2016 ORENDER DO, LAURA S Ot 780.79 OTH MALAISE FATIGUE 08/29/2016 CECILIA ELY, SAVANNAH Sinclair Ot 709.9 SKIN DISORDER NOS 08/29/2016 CECILIA ELY, SAVANNAH Sinclair Ot V72.81 [id number] CARDIOVASCULAR 08/29/2016 CECILIA ELY, SAVANNAH Sinclair Ot V74.8 SCREEN-BACTERIAL DIS NEC 08/29/2016 BETH ELY, SKYLAR J Ot 250.00 DIAB JOSE WO COMPL, TYPE II OR UNSPEC TY 08/29/2016 BETH ELY BASHAR J Ot 401.9 HYPERTENSION NOS 08/29/2016 BETH ELY, BASHAR J Ot 427.31 ATRIAL FIBRILLATION 08/29/2016 BETH ELY, BASHAR J Ot 530.81 ESOPHAGEAL REFLUX 08/29/2016 BETH ELY, BASHAR J Ot 250.00 DIAB JOSE WO COMPL, TYPE II OR UNSPEC TY 08/29/2016 BETH ELY BASHAR J Ot 401.9 HYPERTENSION NOS 08/29/2016 BETH ELY, BASHAR J Ot 427.31 ATRIAL FIBRILLATION 08/29/2016 BETH ELY BASHAR J Ot 530.81 ESOPHAGEAL REFLUX 08/29/2016 BETH ELY, BASHAR J Ot 250.00 DIAB JOSE WO COMPL, TYPE II OR UNSPEC TY 08/29/2016 BETH ELY, BASHAR J Ot 401.9 HYPERTENSION NOS 08/29/2016 BETH ELY, BASHAR J Ot 427.31 ATRIAL FIBRILLATION 08/29/2016 BETH ELY, BASHAR J Ot 530.81 ESOPHAGEAL REFLUX 08/29/2016 DOMITILA WINTERS, LAURA S Ot 250.00 DIAB JOSE WO COMPL, TYPE II OR UNSPEC TY 08/29/2016 DOMITILA WINTERS LAURA S Ot 274.9 GOUT NOS 08/29/2016 DOMITILA WINTERS, LAURA S Ot E11.9 TYPE 2 DIABETES MELLITUS WITHOUT COMPLIC 08/29/2016 SHIRANDOPAL WINTERS, LAURA S Ot I25.10 ATHSCL HEART DISEASE OF [place] CORONARY 08/29/2016 ANTHONY ARAGON DOQUELINE S Ot R53.83 OTHER FATIGUE 08/29/2016 MARÍA SALAMANCA Ot I10 ESSENTIAL (PRIMARY) HYPERTENSION 08/29/2016 MARÍA SALAMANCA Ot I25.10 ATHSCL HEART DISEASE OF [place] CORONARY 08/29/2016 MILLER-NEVAEH PA, MARÍA K Ot I48.2 CHRONIC ATRIAL FIBRILLATION 08/29/2016 MARÍA SALAMANCA Ot R07.89 OTHER CHEST PAIN 08/29/2016 MARÍA SALAMANCA Ot I10 ESSENTIAL (PRIMARY) HYPERTENSION 08/29/2016 MARÍA SALAMANCA Ot I25.10 ATHSCL HEART DISEASE OF [place] CORONARY 08/29/2016 MARÍA SALAMANCA Ot I48.2 CHRONIC ATRIAL FIBRILLATION 08/29/2016 MARÍA SALAMANCA Ot R07.89 OTHER CHEST PAIN 08/29/2016 Ot E11.65 TYPE 2 DIABETES MELLITUS WITH HYPERGLYCE 08/29/2016 JUAN DIEGO SOTELO LAPPER Ot E11.9 TYPE 2 DIABETES MELLITUS WITHOUT COMPLIC 08/29/2016 JUAN DIEGO SOTELO LAPPER Ot I10 ESSENTIAL (PRIMARY) HYPERTENSION 08/29/2016 JUAN DIEGO SOTELO APRN Ot I25.10 ATHSCL HEART DISEASE OF [place] CORONARY 08/29/2016 JUAN DIEGO SOTELO APRN Ot Z12.5 ENCOUNTER FOR SCREENING FOR MALIGNANT NE 08/31/2016 ORENDER DO, LAURA S Ot E11.65 TYPE 2 DIABETES MELLITUS WITH HYPERGLYCE 09/10/2016 ORENDER DO, LAURA S Ot E11.65 TYPE 2 DIABETES MELLITUS WITH HYPERGLYCE 03/22/2017 ORENDER DO, LAURA S Ot 250.00 DIAB JOSE WO COMPL, TYPE II OR UNSPEC TY 03/22/2017 ORENDER DO, LAURA S Ot 274.9 GOUT NOS 03/22/2017 ORENDER DO, LAURA S Ot 780.79 OTH MALAISE FATIGUE 03/22/2017 ORENDER DO, LAURA S Ot V76.44 SCREEN MAL NEOP-PROSTATE 03/22/2017 ORENDER DO, LAURA S Ot 250.00 DIAB JOSE WO COMPL, TYPE II OR UNSPEC TY 03/22/2017 ORENDER DO, LAURA S Ot 780.79 OTH MALAISE FATIGUE 03/22/2017 CECILIA ELY, SAVANNAH Sinclair Ot 709.9 SKIN DISORDER NOS 03/22/2017 CECILIA ELY, SAVANNAH Sinclair Ot V72.81 [id number] CARDIOVASCULAR 03/22/2017 CECILIA ELY, SAVANNAH Sinclair Ot V74.8 SCREEN-BACTERIAL DIS NEC 03/22/2017 BETH ELY, SKYLAR J Ot 250.00 DIAB JOSE WO COMPL, TYPE II OR UNSPEC TY 03/22/2017 BETH ELY, SKYLAR J Ot 401.9 HYPERTENSION NOS 03/22/2017 BETH ELY, BASHAR J Ot 427.31 ATRIAL FIBRILLATION 03/22/2017 BETH ELY, BASJONO J Ot 530.81 ESOPHAGEAL REFLUX 03/22/2017 SKYLAR CAMPOS MD J Ot 250.00 DIAB JOSE WO COMPL, TYPE II OR UNSPEC TY 03/22/2017 BETH ELY, BASHAR J Ot 401.9 HYPERTENSION NOS 03/22/2017 BETH ELY, BASHAR J Ot 427.31 ATRIAL FIBRILLATION 03/22/2017 BETH ELY, SKYLAR J Ot 530.81 ESOPHAGEAL REFLUX 03/22/2017 SKYLAR CAMPOS MD J Ot 250.00 DIAB JOSE WO COMPL, TYPE II OR UNSPEC TY 03/22/2017 BETH ELY, CARSONHAR J Ot 401.9 HYPERTENSION NOS 03/22/2017 SKYLAR CAMPOS MD J Ot 427.31 ATRIAL FIBRILLATION 03/22/2017 CARSON CAMPOS MDHAR J Ot 530.81 ESOPHAGEAL REFLUX 03/22/2017 ANTHONY ARAGON DOQUELINE S Ot 250.00 DIAB JOSE WO COMPL, TYPE II OR UNSPEC TY 03/22/2017 ANTHONY ARAGON DOQUELINE S Ot 274.9 GOUT NOS 03/22/2017 DOMITILA WINTERS LAURA S Ot E11.9 TYPE 2 DIABETES MELLITUS WITHOUT COMPLIC 03/22/2017 DOMITILA WINTERS LAURA S Ot I25.10 ATHSCL HEART DISEASE OF [place] CORONARY 03/22/2017 MAURY ARAGON DOLINE S Ot R53.83 OTHER FATIGUE 03/22/2017 MARÍA SALAMANCA Ot I10 ESSENTIAL (PRIMARY) HYPERTENSION 03/22/2017 MARÍA SALAMANCA Ot I25.10 ATHSCL HEART DISEASE OF [place] CORONARY 03/22/2017 MARÍA SALAMANCA Ot I48.2 CHRONIC ATRIAL FIBRILLATION 03/22/2017 MARÍA SALAMANCA Ot R07.89 OTHER CHEST PAIN 03/22/2017 MARÍA SALAMANCA Ot I10 ESSENTIAL (PRIMARY) HYPERTENSION 03/22/2017 MILLER-NEVAEH PA, MARÍA K Ot I25.10 ATHSCL HEART DISEASE OF [place] CORONARY 03/22/2017 MARÍA SALAMANCA Ot I48.2 CHRONIC ATRIAL FIBRILLATION 03/22/2017 MARÍA SALAMANCA Ot R07.89 OTHER CHEST PAIN 03/22/2017 Ot E11.65 TYPE 2 DIABETES MELLITUS WITH HYPERGLYCE 03/22/2017 JUAN DIEGO SOTELO LAPPER Ot E11.9 TYPE 2 DIABETES MELLITUS WITHOUT COMPLIC 03/22/2017 JUAN DIEGO SOTELO LAPPER Ot I10 ESSENTIAL (PRIMARY) HYPERTENSION 03/22/2017 JUAN DIEGO SOTELO LAPPER Ot I25.10 ATHSCL HEART DISEASE OF [place] CORONARY 03/22/2017 JUAN DIEGO SOTELO LAPPER Ot Z12.5 ENCOUNTER FOR SCREENING FOR MALIGNANT NE 03/22/2017 LAURA ARAGON DO Ot E11.65 TYPE 2 DIABETES MELLITUS WITH HYPERGLYCE 03/22/2017 MARÍA SALAMANCA Ot I25.10 ATHSCL HEART DISEASE OF [place] CORONARY 03/25/2017 MARÍA SALAMANCA Ot I10 ESSENTIAL (PRIMARY) HYPERTENSION 03/25/2017 MARÍA SALAMANCA Ot I25.10 ATHSCL HEART DISEASE OF [place] CORONARY 03/25/2017 MARÍA SALAMANCA Ot I48.2 CHRONIC ATRIAL FIBRILLATION 03/25/2017 MARÍA SALAMANCA Ot I65.23 OCCLUSION AND STENOSIS OF [place]AL [place] 04/02/2017 MARÍA SALAMANCA Ot I10 ESSENTIAL (PRIMARY) HYPERTENSION 04/02/2017 MARÍA SALAMANCA Ot I25.10 ATHSCL HEART DISEASE OF [place] CORONARY 04/02/2017 MARÍA SALAMANCA Ot I48.2 CHRONIC ATRIAL FIBRILLATION 04/02/2017 MARÍA SALAMANCA Ot I65.23 OCCLUSION AND STENOSIS OF [place]ILATERAL [place] 08/07/2017 LAURA ARAGON DO S Ot 250.00 DIAB JOSE WO COMPL, TYPE II OR UNSPEC TY 08/07/2017 LAURA ARAGON DO S Ot 274.9 GOUT NOS 08/07/2017 LAURA ARAGON DO S Ot 780.79 OTH MALAISE FATIGUE 08/07/2017 LOIER , LAURA S Ot V76.44 SCREEN MAL NEOP-PROSTATE 08/07/2017 SHIRANDER , LAURA S Ot 250.00 DIAB JOSE WO COMPL, TYPE II OR UNSPEC TY 08/07/2017 ORENDER DO, LAURA S Ot 780.79 OTH MALAISE FATIGUE 08/07/2017 CECILIA ELY, SAVANNAH Sinclair Ot 709.9 SKIN DISORDER NOS 08/07/2017 CECILIA ELY, SAVANNAH Sinclair Ot V72.81 [id number]-[id number]-[id number] CARDIOVASCULAR 08/07/2017 CECILIA ELY, SAVANNAH Sinclair Ot V74.8 SCREEN-BACTERIAL DIS NEC 08/07/2017 BETH ELY, SKYLAR Narvaez Ot 250.00 DIAB JOSE WO COMPL, TYPE II OR UNSPEC TY 08/07/2017 SKYLAR CAMPOS MD J Ot 401.9 HYPERTENSION NOS 08/07/2017 SKYLAR CAMPOS MD J Ot 427.31 ATRIAL FIBRILLATION 08/07/2017 SKYLAR CAMPOS MD J Ot 530.81 ESOPHAGEAL REFLUX 08/07/2017 SKYLAR CAMPOS MD J Ot 250.00 DIAB JOSE WO COMPL, TYPE II OR UNSPEC TY 08/07/2017 SKYLAR CAMPOS MD J Ot 401.9 HYPERTENSION NOS 08/07/2017 BETH ELY, CARSONHAR J Ot 427.31 ATRIAL FIBRILLATION 08/07/2017 BETH ELY, SKYLAR J Ot 530.81 ESOPHAGEAL REFLUX 08/07/2017 BETH ELY, SKYLAR J Ot 250.00 DIAB JOSE WO COMPL, TYPE II OR UNSPEC TY 08/07/2017 SKYLAR CAMPOS MD J Ot 401.9 HYPERTENSION NOS 08/07/2017 BETH ELY, CARSONHAR J Ot 427.31 ATRIAL FIBRILLATION 08/07/2017 BETH ELY, CARSONHAR J Ot 530.81 ESOPHAGEAL REFLUX 08/07/2017 DOMITILA WINTERS, LAURA S Ot 250.00 DIAB JOSE WO COMPL, TYPE II OR UNSPEC TY 08/07/2017 SHIRANDER , LAURA S Ot 274.9 GOUT NOS 08/07/2017 SHIRANDOPAL WINTERS, LAURA S Ot E11.9 TYPE 2 DIABETES MELLITUS WITHOUT COMPLIC 08/07/2017 DOMITILA WINTERS, LAURA S Ot I25.10 ATHSCL HEART DISEASE OF [place] CORONARY 08/07/2017 ANTHONY ARAGON DOQUELINE S Ot R53.83 OTHER FATIGUE 08/07/2017 MARÍA SALAMANCA Ot I10 ESSENTIAL (PRIMARY) HYPERTENSION 08/07/2017 MARÍA SALAMANCA Ot I25.10 ATHSCL HEART DISEASE OF [place] CORONARY 08/07/2017 MARÍA SALAMANCA Ot I48.2 CHRONIC ATRIAL FIBRILLATION 08/07/2017 MARÍA SALAMANCA Ot R07.89 OTHER CHEST PAIN 08/07/2017 MARÍA SALAMANCA Ot I10 ESSENTIAL (PRIMARY) HYPERTENSION 08/07/2017 MARÍA SALAMANCA Ot I25.10 ATHSCL HEART DISEASE OF [place] CORONARY 08/07/2017 MARÍA SALAMANCA Ot I48.2 CHRONIC ATRIAL FIBRILLATION 08/07/2017 MARÍA SALAMANCA Ot R07.89 OTHER CHEST PAIN 08/07/2017 Ot E11.65 TYPE 2 DIABETES MELLITUS WITH HYPERGLYCE 08/07/2017 JUAN DIEGO SOTELO LAPPER Ot E11.9 TYPE 2 DIABETES MELLITUS WITHOUT COMPLIC 08/07/2017 JUAN DIEGO SOTELO LAPPER Ot I10 ESSENTIAL (PRIMARY) HYPERTENSION 08/07/2017 JUAN DIEGO SOTELO LAPPER Ot I25.10 ATHSCL HEART DISEASE OF [place] CORONARY 08/07/2017 JUAN DIEGO SOTELO LAPPER Ot Z12.5 ENCOUNTER FOR SCREENING FOR MALIGNANT NE 08/07/2017 LAURA ARAGON DO S Ot E11.65 TYPE 2 DIABETES MELLITUS WITH HYPERGLYCE 08/07/2017 MARÍA SALAMANCA Ot I10 ESSENTIAL (PRIMARY) HYPERTENSION 08/07/2017 MARÍA SALAMANCA Ot I25.10 ATHSCL HEART DISEASE OF [place] CORONARY 08/07/2017 MARÍA SALAMANCA Ot I48.2 CHRONIC ATRIAL FIBRILLATION 08/07/2017 MARÍA SALAMANCA Ot I65.23 OCCLUSION AND STENOSIS OF BILATERAL [place] 08/07/2017 MAURY ARAGON DOLINE S Ot E11.65 TYPE 2 DIABETES MELLITUS WITH HYPERGLYCE 08/07/2017 LAURA ARAGON DO S Ot E78.2 MIXED HYPERLIPIDEMIA 08/13/2017 ANTHONY ARAGON DOQUELINE S Ot E11.65 TYPE 2 DIABETES MELLITUS WITH HYPERGLYCE 08/13/2017 ORENDER DO, LAURA S Ot E78.5 HYPERLIPIDEMIA, UNSPECIFIED 08/13/2017 ORENDER DO, LAURA S Ot I25.10 ATHSCL HEART DISEASE OF [place] CORONARY 08/13/2017 ORENDER DO, LUARA S Ot M10.9 GOUT, UNSPECIFIED 08/27/2017 ORENDER DO, LAURA S Ot E11.65 TYPE 2 DIABETES MELLITUS WITH HYPERGLYCE 08/27/2017 ORENDER DO, LAURA S Ot E78.5 HYPERLIPIDEMIA, UNSPECIFIED 08/27/2017 ORENDER DO, LAURA S Ot I25.10 ATHSCL HEART DISEASE OF [place] CORONARY 08/27/2017 SHIRANDER DO, LAURA S Ot M10.9 GOUT, UNSPECIFIED 09/23/2017 GENEVA ELY, SAMMI Ot Z01.818 ENCOUNTER FOR OTHER PREPROCEDURAL EXAMIN 09/23/2017 SAMMI BEAN MD Ot Z12.11 ENCOUNTER FOR SCREENING FOR MALIGNANT NE 09/23/2017 SAMMI BEAN MD Ot Z86.010 PERSONAL HISTORY OF COLONIC POLYPS 09/23/2017 SHIRANDER , LAURA S Ot Z12.5 ENCOUNTER FOR SCREENING FOR MALIGNANT NE 10/02/2017 VINCE DAILEYP Ot E11.9 TYPE 2 DIABETES MELLITUS WITHOUT COMPLIC 10/02/2017 ASHLIE VINCE SOFTLINES SUPERVISOR Ot F32.9 MAJOR DEPRESSIVE DISORDER, SINGLE EPISOD 10/02/2017 ASHLIE, VINCE SOFTLINES SUPERVISOR Ot F41.9 ANXIETY DISORDER, UNSPECIFIED 10/02/2017 ASHLIE VINCE SOFTLINES SUPERVISOR Ot I10 ESSENTIAL (PRIMARY) HYPERTENSION 10/02/2017 ASHLIE VINCE SOFTLINES SUPERVISOR Ot I25.10 ATHSCL HEART DISEASE OF [place] CORONARY 10/02/2017 ASHLIE VINCE SOFTLINES SUPERVISOR Ot I48.91 UNSPECIFIED ATRIAL FIBRILLATION 10/02/2017 ASHLIE VINCE SOFTLINES SUPERVISOR Ot K21.9 GASTRO-ESOPHAGEAL REFLUX DISEASE WITHOUT 10/02/2017 ASHLIE, VINCE SOFTLINES SUPERVISOR Ot K92.1 MELENA 10/02/2017 ASHLIE VINCE SOFTLINES SUPERVISOR Ot N40.0 BENIGN PROSTATIC HYPERPLASIA WITHOUT LOW 10/02/2017 ASHLIE VINCE SOFTLINES SUPERVISOR Ot Z79.01 PROCUREMENT OFFICER (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) USE OF ANTICOAGULANT 10/02/2017 ASHLIE VINCE SOFTLINES SUPERVISOR Ot Z79.02 [facility] (CURRENT) USE OF ANTITHROMBOTI 10/02/2017 VINCE DAILEY Ot Z79.84 PROCUREMENT OFFICER (CURRENT) USE OF ORAL HYPOGLYC 10/02/2017 VINCE DAILEY Ot Z82.49 FAMILY HX OF ISCHEM HEART DIS AND OTH DI 10/02/2017 VINCE DAILEY Ot Z85.038 PERSONAL HISTORY OF MALIGNANT NEOPLASM O 10/02/2017 VINCE DAILEY Ot Z85.828 PERSONAL HISTORY OF OTHER MALIGNANT NEOP 10/02/2017 VINCE DAILEY Ot Z87.19 PERSONAL HISTORY OF OTHER DISEASES OF TH 10/02/2017 VINCE DAILEY Ot Z98.890 OTHER SPECIFIED POSTPROCEDURAL STATES 10/02/2017 LAURA ARAGON DO Ot Z12.5 ENCOUNTER FOR SCREENING FOR MALIGNANT NE Procedures There is no data. Results Test Result Range Complete blood count (CBC) with automated white blood cell (WBC) differential - 01/06/16 09:21 Blood leukocytes automated count (number/volume) 6.6 10*3/uL 4.3-11.0 Blood erythrocytes automated count (number/volume) 5.02 10*6/uL 4.35-5.85 Venous blood hemoglobin measurement (mass/volume) 16.0 g/dL 13.3-17.7 Blood hematocrit (volume fraction) 45 % 40-54 Automated erythrocyte mean corpuscular volume 89 [foz_us] 80-99 Automated erythrocyte mean corpuscular hemoglobin (mass per erythrocyte) 32 pg 25-34 Automated erythrocyte mean corpuscular hemoglobin concentration measurement ( mass/volume) 36 g/dL 32-36 Automated erythrocyte distribution width ratio 13.1 % 10.0-14.5 Automated blood platelet count (count/volume) 190 10*3/uL 130-400 Automated blood platelet mean volume measurement 9.8 [foz_us] 7.4-10.4 Automated blood neutrophils/100 leukocytes 70 % 42-75 Automated blood lymphocytes/100 leukocytes 19 % 12-44 Blood monocytes/100 leukocytes 10 % 0-12 Automated blood eosinophils/100 leukocytes 1 % 0-10 Automated blood basophils/100 leukocytes 1 % 0-10 Blood neutrophils automated count (number/volume) 4.6 10*3 1.8-7.8 Blood lymphocytes automated count (number/volume) 1.2 10*3 1.0-4.0 Blood monocytes automated count (number/volume) 0.7 10*3 0.0-1.0 Automated eosinophil count 0.1 10*3/uL 0.0-0.3 Automated blood basophil count (count/volume) 0.0 10*3/uL 0.0-0.1 Comprehensive metabolic panel - 01/06/16 09:21 Serum or plasma sodium measurement (moles/volume) 141 mmol/L 135-145 Serum or plasma potassium measurement (moles/volume) 3.9 mmol/L 3.6-5.0 Serum or plasma chloride measurement (moles/volume) 108 mmol/L 98-107 Carbon dioxide 23 mmol/L 21-32 Serum or plasma anion gap determination (moles/volume) 10 mmol/L 5-14 Serum or plasma urea nitrogen measurement (mass/volume) 15 mg/dL 7-18 Serum or plasma creatinine measurement (mass/volume) 0.86 mg/dL 0.60-1.30 Serum or plasma urea nitrogen/creatinine mass ratio 17 NRG Serum or plasma creatinine measurement with calculation of estimated glomerular filtration rate > NRG Serum or plasma glucose measurement (mass/volume) 168 mg/dL 70-105 Serum or plasma calcium measurement (mass/volume) 9.4 mg/dL 8.5-10.1 Serum or plasma total bilirubin measurement (mass/volume) 1.3 mg/dL 0.1-1.0 Serum or plasma alkaline phosphatase measurement (enzymatic activity/volume) 65 U/L 40-136 Serum or plasma aspartate aminotransferase measurement (enzymatic activity/ volume) 25 U/L 5-34 Serum or plasma alanine aminotransferase measurement (enzymatic activity/volume ) 40 U/L 0-55 Serum or plasma protein measurement (mass/volume) 7.0 g/dL 6.4-8.2 Serum or plasma albumin measurement (mass/volume) 4.3 g/dL 3.2-4.5 Lipid 1996 panel - 01/06/16 09:21 Serum or plasma triglyceride measurement (mass/volume) 128 mg/dL <150 Serum or plasma cholesterol measurement (mass/volume) 130 mg/dL < 200 Serum or plasma cholesterol in HDL measurement (mass/volume) 43 mg/ dL 40-60 Cholesterol in LDL [mass/volume] in serum or plasma by direct assay 73 mg/dL 1-129 Serum or plasma cholesterol in VLDL measurement (mass/volume) 26 mg/ dL 5-40 THYROID STIMULATING HORMONE - 01/06/16 09:21 THYROID STIMULATING HORMONE 0.73 u[iU]/mL 0.35-4.94 Hemoglobin A1c - 01/06/16 09:21 Hemoglobin A1c 6.8 % 4.5-6.2 Urine microalbumin measurement by test strip (mass/volume) - 01/06/16 09:21 Urine creatinine measurement (mass/volume) 229 % NRG Microalbumin [mass/volume] in urine 9.9 % 0.0-20.0 Microalbumin/creatinine [ratio] in urine 4.3 mg/g{Cre} 0.0-30.0 Prostate specific ag [mass/volume] in serum or plasma - 01/06/16 09:21 Prostate specific ag [mass/volume] in serum or plasma 0.56 % 0.00-4.00 Complete blood count (CBC) with automated white blood cell (WBC) differential - 05/08/16 12:15 Blood leukocytes automated count (number/volume) 5.6 10*3/uL 4.3-11.0 Blood erythrocytes automated count (number/volume) 4.79 10*6/uL 4.35-5.85 Venous blood hemoglobin measurement (mass/volume) 15.2 g/dL 13.3-17.7 Blood hematocrit (volume fraction) 43 % 40-54 Automated erythrocyte mean corpuscular volume 89 [foz_us] 80-99 Automated erythrocyte mean corpuscular hemoglobin (mass per erythrocyte) 32 pg 25-34 Automated erythrocyte mean corpuscular hemoglobin concentration measurement ( mass/volume) 36 g/dL 32-36 Automated erythrocyte distribution width ratio 13.0 % 10.0-14.5 Automated blood platelet count (count/volume) 180 10*3/uL 130-400 Automated blood platelet mean volume measurement 9.6 [foz_us] 7.4-10.4 Automated blood neutrophils/100 leukocytes 66 % 42-75 Automated blood lymphocytes/100 leukocytes 20 % 12-44 Blood monocytes/100 leukocytes 13 % 0-12 Automated blood eosinophils/100 leukocytes 1 % 0-10 Automated blood basophils/100 leukocytes 1 % 0-10 Blood neutrophils automated count (number/volume) 3.7 10*3 1.8-7.8 Blood lymphocytes automated count (number/volume) 1.1 10*3 1.0-4.0 Blood monocytes automated count (number/volume) 0.7 10*3 0.0-1.0 Automated eosinophil count 0.0 10*3/uL 0.0-0.3 Automated blood basophil count (count/volume) 0.0 10*3/uL 0.0-0.1 PT panel in platelet poor plasma by coagulation assay - 05/08/16 12:15 Prothrombin time (PT) in platelet poor plasma by coagulation assay 14.0 s 12.2-14.7 INR in platelet poor plasma or blood by coagulation assay 1.1 0.8-1.4 Activated partial thromboplastin time (aPTT) in platelet poor plasma bycoagulation assay - 05/08/16 12:15 Activated partial thromboplastin time (aPTT) in platelet poor plasma bycoagulation assay 31 s 24-35 Comprehensive metabolic panel - 05/08/16 12:15 Serum or plasma sodium measurement (moles/volume) 140 mmol/L 135-145 Serum or plasma potassium measurement (moles/volume) 4.0 mmol/L 3.6-5.0 Serum or plasma chloride measurement (moles/volume) 107 mmol/L 98-107 Carbon dioxide 23 mmol/L 21-32 Serum or plasma anion gap determination (moles/volume) 10 mmol/L 5-14 Serum or plasma urea nitrogen measurement (mass/volume) 16 mg/dL 7-18 Serum or plasma creatinine measurement (mass/volume) 0.94 mg/dL 0.60-1.30 Serum or plasma urea nitrogen/creatinine mass ratio 17 NRG Serum or plasma creatinine measurement with calculation of estimated glomerular filtration rate > NRG Serum or plasma glucose measurement (mass/volume) 224 mg/dL 70-105 Serum or plasma calcium measurement (mass/volume) 9.2 mg/dL 8.5-10.1 Serum or plasma total bilirubin measurement (mass/volume) 0.9 mg/dL 0.1-1.0 Serum or plasma alkaline phosphatase measurement (enzymatic activity/volume) 62 U/L 40-136 Serum or plasma aspartate aminotransferase measurement (enzymatic activity/ volume) 19 U/L 5-34 Serum or plasma alanine aminotransferase measurement (enzymatic activity/volume ) 34 U/L 0-55 Serum or plasma protein measurement (mass/volume) 6.7 g/dL 6.4-8.2 Serum or plasma albumin measurement (mass/volume) 4.2 g/dL 3.2-4.5 Magnesium - 05/08/16 12:15 Magnesium 2.1 mg/dL 1.8-2.4 Serum or plasma troponin i.cardiac measurement (mass/volume) - 05/08/16 12:15 Serum or plasma troponin i.cardiac measurement (mass/volume) < ng/ mL <0.30 Myoglobin, serum - 05/08/16 12:15 Myoglobin, serum 42.9 ng/mL 10.0-92.0 Serum or plasma troponin i.cardiac measurement (mass/volume) - 05/08/16 18:57 Serum or plasma troponin i.cardiac measurement (mass/volume) < ng/ mL <0.30 Capillary blood glucose measurement by glucometer (mass/volume) - 05/08/16 21: 02 Capillary blood glucose measurement by glucometer (mass/volume) 141 mg/dL 70-110 Serum or plasma troponin i.cardiac measurement (mass/volume) - 05/09/16 00:30 Serum or plasma troponin i.cardiac measurement (mass/volume) < ng/ mL <0.30 Comprehensive metabolic panel - 05/09/16 04:04 Serum or plasma sodium measurement (moles/volume) 138 mmol/L 135-145 Serum or plasma potassium measurement (moles/volume) 3.5 mmol/L 3.6-5.0 Serum or plasma chloride measurement (moles/volume) 107 mmol/L 98-107 Carbon dioxide 22 mmol/L 21-32 Serum or plasma anion gap determination (moles/volume) 9 mmol/L 5-14 Serum or plasma urea nitrogen measurement (mass/volume) 13 mg/dL 7-18 Serum or plasma creatinine measurement (mass/volume) 0.76 mg/dL 0.60-1.30 Serum or plasma urea nitrogen/creatinine mass ratio 17 NRG Serum or plasma creatinine measurement with calculation of estimated glomerular filtration rate > NRG Serum or plasma glucose measurement (mass/volume) 156 mg/dL 70-105 Serum or plasma calcium measurement (mass/volume) 8.4 mg/dL 8.5-10.1 Serum or plasma total bilirubin measurement (mass/volume) 1.0 mg/dL 0.1-1.0 Serum or plasma alkaline phosphatase measurement (enzymatic activity/volume) 49 U/L 40-136 Serum or plasma aspartate aminotransferase measurement (enzymatic activity/ volume) 21 U/L 5-34 Serum or plasma alanine aminotransferase measurement (enzymatic activity/volume ) 30 U/L 0-55 Serum or plasma protein measurement (mass/volume) 5.8 g/dL 6.4-8.2 Serum or plasma albumin measurement (mass/volume) 3.5 g/dL 3.2-4.5 Lipid 1996 panel - 05/09/16 04:04 Serum or plasma triglyceride measurement (mass/volume) 178 mg/dL <150 Serum or plasma cholesterol measurement (mass/volume) 151 mg/dL < 200 Serum or plasma cholesterol in HDL measurement (mass/volume) 34 mg/ dL 40-60 Cholesterol in LDL [mass/volume] in serum or plasma by direct assay 101 mg/dL 1-129 Serum or plasma cholesterol in VLDL measurement (mass/volume) 36 mg/ dL 5-40 Complete blood count (CBC) with automated white blood cell (WBC) differential - 05/09/16 04:05 Blood leukocytes automated count (number/volume) 5.4 10*3/uL 4.3-11.0 Blood erythrocytes automated count (number/volume) 4.47 10*6/uL 4.35-5.85 Venous blood hemoglobin measurement (mass/volume) 14.2 g/dL 13.3-17.7 Blood hematocrit (volume fraction) 40 % 40-54 Automated erythrocyte mean corpuscular volume 89 [foz_us] 80-99 Automated erythrocyte mean corpuscular hemoglobin (mass per erythrocyte) 32 pg 25-34 Automated erythrocyte mean corpuscular hemoglobin concentration measurement ( mass/volume) 36 g/dL 32-36 Automated erythrocyte distribution width ratio 12.8 % 10.0-14.5 Automated blood platelet count (count/volume) 163 10*3/uL 130-400 Automated blood platelet mean volume measurement 9.7 [foz_us] 7.4-10.4 Automated blood neutrophils/100 leukocytes 60 % 42-75 Automated blood lymphocytes/100 leukocytes 26 % 12-44 Blood monocytes/100 leukocytes 13 % 0-12 Automated blood eosinophils/100 leukocytes 2 % 0-10 Automated blood basophils/100 leukocytes 0 % 0-10 Blood neutrophils automated count (number/volume) 3.2 10*3 1.8-7.8 Blood lymphocytes automated count (number/volume) 1.4 10*3 1.0-4.0 Blood monocytes automated count (number/volume) 0.7 10*3 0.0-1.0 Automated eosinophil count 0.1 10*3/uL 0.0-0.3 Automated blood basophil count (count/volume) 0.0 10*3/uL 0.0-0.1 Capillary blood glucose measurement by glucometer (mass/volume) - 05/09/16 16: 30 Capillary blood glucose measurement by glucometer (mass/volume) 158 mg/dL 70-110 Comprehensive metabolic panel - 08/29/16 11:52 Serum or plasma sodium measurement (moles/volume) 141 mmol/L 135-145 Serum or plasma potassium measurement (moles/volume) 3.9 mmol/L 3.6-5.0 Serum or plasma chloride measurement (moles/volume) 107 mmol/L 98-107 Carbon dioxide 23 mmol/L 21-32 Serum or plasma anion gap determination (moles/volume) 11 mmol/L 5-14 Serum or plasma urea nitrogen measurement (mass/volume) 12 mg/dL 7-18 Serum or plasma creatinine measurement (mass/volume) 0.87 mg/dL 0.60-1.30 Serum or plasma urea nitrogen/creatinine mass ratio 14 NRG Serum or plasma creatinine measurement with calculation of estimated glomerular filtration rate > NRG Serum or plasma glucose measurement (mass/volume) 224 mg/dL 70-105 Serum or plasma calcium measurement (mass/volume) 9.2 mg/dL 8.5-10.1 Serum or plasma total bilirubin measurement (mass/volume) 1.2 mg/dL 0.1-1.0 Serum or plasma alkaline phosphatase measurement (enzymatic activity/volume) 67 U/L 40-136 Serum or plasma aspartate aminotransferase measurement (enzymatic activity/ volume) 33 U/L 5-34 Serum or plasma alanine aminotransferase measurement (enzymatic activity/volume ) 48 U/L 0-55 Serum or plasma protein measurement (mass/volume) 7.0 g/dL 6.4-8.2 Serum or plasma albumin measurement (mass/volume) 4.1 g/dL 3.2-4.5 Hemoglobin A1c - 08/29/16 11:52 Hemoglobin A1c 7.4 % 4.5-6.2 Comprehensive metabolic panel - 03/22/17 09:25 Serum or plasma sodium measurement (moles/volume) 140 mmol/L 135-145 Serum or plasma potassium measurement (moles/volume) 3.7 mmol/L 3.6-5.0 Serum or plasma chloride measurement (moles/volume) 106 mmol/L 98-107 Carbon dioxide 24 mmol/L 21-32 Serum or plasma anion gap determination (moles/volume) 10 mmol/L 5-14 Serum or plasma urea nitrogen measurement (mass/volume) 15 mg/dL 7-18 Serum or plasma creatinine measurement (mass/volume) 0.85 mg/dL 0.60-1.30 Serum or plasma urea nitrogen/creatinine mass ratio 18 NRG Serum or plasma creatinine measurement with calculation of estimated glomerular filtration rate > NRG Serum or plasma glucose measurement (mass/volume) 208 mg/dL 70-105 Serum or plasma calcium measurement (mass/volume) 9.3 mg/dL 8.5-10.1 Serum or plasma total bilirubin measurement (mass/volume) 1.4 mg/dL 0.1-1.0 Serum or plasma alkaline phosphatase measurement (enzymatic activity/volume) 67 U/L 40-136 Serum or plasma aspartate aminotransferase measurement (enzymatic activity/ volume) 17 U/L 5-34 Serum or plasma alanine aminotransferase measurement (enzymatic activity/volume ) 28 U/L 0-55 Serum or plasma protein measurement (mass/volume) 7.4 g/dL 6.4-8.2 Serum or plasma albumin measurement (mass/volume) 4.2 g/dL 3.2-4.5 Lipid 1996 panel - 03/22/17 09:25 Serum or plasma triglyceride measurement (mass/volume) 102 mg/dL <150 Serum or plasma cholesterol measurement (mass/volume) 133 mg/dL < 200 Serum or plasma cholesterol in HDL measurement (mass/volume) 45 mg/ dL 40-60 Cholesterol in LDL [mass/volume] in serum or plasma by direct assay 78 mg/dL 1-129 Serum or plasma cholesterol in VLDL measurement (mass/volume) 20 mg/ dL 5-40 Semen free prostate specific antigen (PSA) measurement (units/volume) - 10:49 Prostate specific ag [mass/volume] in serum or plasma 0.43 % 0.00-4.00 Capillary blood glucose measurement by glucometer (mass/volume) - 09/27/17 11: 56 Capillary blood glucose measurement by glucometer (mass/volume) 146 mg/dL 70-110 Complete blood count (CBC) with automated white blood cell (WBC) differential - 09/30/17 13:34 Blood leukocytes automated count (number/volume) 6.9 10*3/uL 4.3-11.0 Blood erythrocytes automated count (number/volume) 4.48 10*6/uL 4.35-5.85 Venous blood hemoglobin measurement (mass/volume) 14.0 g/dL 13.3-17.7 Blood hematocrit (volume fraction) 39 % 40-54 Automated erythrocyte mean corpuscular volume 88 [foz_us] 80-99 Automated erythrocyte mean corpuscular hemoglobin (mass per erythrocyte) 31 pg 25-34 Automated erythrocyte mean corpuscular hemoglobin concentration measurement ( mass/volume) 36 g/dL 32-36 Automated erythrocyte distribution width ratio 13.3 % 10.0-14.5 Automated blood platelet count (count/volume) 179 10*3/uL 130-400 Automated blood platelet mean volume measurement 9.5 [foz_us] 7.4-10.4 Automated blood neutrophils/100 leukocytes 70 % 42-75 Automated blood lymphocytes/100 leukocytes 20 % 12-44 Blood monocytes/100 leukocytes 10 % 0-12 Automated blood eosinophils/100 leukocytes 1 % 0-10 Automated blood basophils/100 leukocytes 0 % 0-10 Blood neutrophils automated count (number/volume) 4.8 10*3 1.8-7.8 Blood lymphocytes automated count (number/volume) 1.4 10*3 1.0-4.0 Blood monocytes automated count (number/volume) 0.7 10*3 0.0-1.0 Automated eosinophil count 0.1 10*3/uL 0.0-0.3 Automated blood basophil count (count/volume) 0.0 10*3/uL 0.0-0.1 PT panel in platelet poor plasma by coagulation assay - 09/30/17 13:34 Prothrombin time (PT) in platelet poor plasma by coagulation assay 16.2 s 12.2-14.7 INR in platelet poor plasma or blood by coagulation assay 1.3 0.8-1.4 Activated partial thromboplastin time (aPTT) in platelet poor plasma bycoagulation assay - 09/30/17 13:34 Activated partial thromboplastin time (aPTT) in platelet poor plasma bycoagulation assay 30 s 24-35 Comprehensive metabolic panel - 09/30/17 13:34 Serum or plasma sodium measurement (moles/volume) 140 mmol/L 135-145 Serum or plasma potassium measurement (moles/volume) 4.0 mmol/L 3.6-5.0 Serum or plasma chloride measurement (moles/volume) 108 mmol/L 98-107 Carbon dioxide 21 mmol/L 21-32 Serum or plasma anion gap determination (moles/volume) 11 mmol/L 5-14 Serum or plasma urea nitrogen measurement (mass/volume) 17 mg/dL 7-18 Serum or plasma creatinine measurement (mass/volume) 0.79 mg/dL 0.60-1.30 Serum or plasma urea nitrogen/creatinine mass ratio 22 NRG Serum or plasma creatinine measurement with calculation of estimated glomerular filtration rate > NRG Serum or plasma glucose measurement (mass/volume) 162 mg/dL 70-105 Serum or plasma calcium measurement (mass/volume) 9.1 mg/dL 8.5-10.1 Serum or plasma total bilirubin measurement (mass/volume) 1.2 mg/dL 0.1-1.0 Serum or plasma alkaline phosphatase measurement (enzymatic activity/volume) 60 U/L 40-136 Serum or plasma aspartate aminotransferase measurement (enzymatic activity/ volume) 17 U/L 5-34 Serum or plasma alanine aminotransferase measurement (enzymatic activity/volume ) 22 U/L 0-55 Serum or plasma protein measurement (mass/volume) 6.8 g/dL 6.4-8.2 Serum or plasma albumin measurement (mass/volume) 4.0 g/dL 3.2-4.5 Encounters ACCT No. Visit Date/Time Discharge Status Pt. Type Provider Facility Loc./Unit Complaint [id number] 09/30/2017 12:21:00 09/30/2017 14:57:00 DIS Outpatient VINCE DAILEY Via [facility] ER BLEEDING WITH BM [id number] 09/27/2017 11:23:00 09/27/2017 13:55:00 DIS Outpatient SAMMI BEAN MD Via [facility] ENDO SCREENING/HX POLYPS/ REFLUX [id number] 09/20/2017 10:29:00 09/20/2017 23:59:59 CLS Outpatient LAURA ARAGON DO Via [facility] LAB SCREENING [id number] 09/19/2017 05:50:00 09/19/2017 13:41:00 DIS Outpatient SAMMI BEAN MD Via [facility] PREOP COLONOSCOPY [id number] 08/07/2017 08:47:00 08/07/2017 23:59:59 CLS Outpatient LAURA ARAGON DO Via [facility] LAB DM II E11.65,CAD I25.10,GOUT M10,HYPERLIPID E78.5 [id number] 03/22/2017 09:12:00 03/22/2017 23:59:59 CLS Outpatient MARÍA SALAMANCA Via [facility] LAB I48.2 I25.10 I65.23 I10 [id number] 08/29/2016 11:41:00 08/29/2016 23:59:59 CLS Outpatient LAURA ARAGON DO S Via [facility] LAB E11.65 [id number] 05/08/2016 14:42:00 05/09/2016 19:58:00 DIS Outpatient SKYLAR CAMPOS MD [facility] CATH UNSTABLE ANGINA [id number] 01/06/2016 08:54:00 01/06/2016 23:59:59 CLS Outpatient JUAN DIEGO SOTELO Cora CASON [facility] LAB DIABETES MELLITUS, ESSENTIAL HTN,CAD [id number] 09/11/2015 21:58:00 09/12/2015 18:50:00 DIS Inpatient LAURA ARAGON DO S Via [facility] ICU CHEST PAIN; MYALGIA [id number] 07/06/2015 08:01:00 07/06/2015 23:59:59 CLS Outpatient MARÍA SALAMANCA Via [facility] CARD AF,CAD, CHEST PAIN,SYNDROME HTN [id number] 06/29/2015 14:33:00 06/29/2015 23:59:59 CLS Outpatient MARÍA SALAMANCA [facility] CARD AF, HTN [id number] 05/16/2015 13:16:00 05/16/2015 15:21:00 DIS Emergency DANIEL CLARK MD [facility] ER CHEST TIGHTNESS [id number] 03/08/2015 09:02:00 03/08/2015 23:59:59 CLS Outpatient SHIRANDLAURA JOSEPH DO S Via [facility] LAB CAD,DMII,FATIGUE [id number] 09/16/2014 10:21:00 09/16/2014 23:59:59 CLS Outpatient LAURA ARAGON DO S [facility] LAB DMII,GOUT [id number] 09/01/2014 06:31:00 09/01/2014 15:00:00 DIS Outpatient SKYLAR CAMPOS MD Via [facility] CATH AFIB HTN HLP CHF DIABETES [id number] 08/22/2014 21:39:00 08/22/2014 22:42:00 DIS Emergency TONE RON [facility] ER POST SURGICAL WOUND PROBLEMS [id number] 08/18/2014 08:00:00 08/18/2014 23:59:59 CLS Outpatient SKYLAR CAMPOS MD [facility] CARD AFIB,GERD,HTN [id number] 08/16/2014 08:29:00 08/16/2014 23:59:59 CLS Outpatient SKYLAR CAMPOS MD [facility] CARD AFIB,GERD,HTN [id number] 08/04/2014 08:12:00 08/04/2014 14:40:00 DIS Outpatient SAVANNAH BROOKS MD [facility] SDC SKIN LESION [id number] 07/31/2014 09:01:00 07/31/2014 23:59:59 CLS Outpatient SKYLAR CAMPOS MD [facility] LAB AF,DM,GERD,HTN [id number] 07/28/2014 15:02:00 07/28/2014 23:59:59 CLS Outpatient SAVANNAH BROOKS MD [facility] PREOP SKIN LESION [id number] 04/30/2014 14:45:00 04/30/2014 18:03:00 DIS Emergency CHAS CHUA MD [facility] ER VOMITING COUGH/CONGESTION [id number] 10/05/2013 10:35:00 10/05/2013 23:59:59 CLS Outpatient LAURA ARAGON DO S [facility] LAB DMII,FATIGUE [id number] 06/12/2013 14:26:00 06/12/2013 23:59:59 CLS Outpatient LAURA ARAGON DO [facility] LAB FATIGUE,GOUT [id number] 10/06/2017 14:25:00 ACT Emergency TOMA ELY, CHAS Barbour [facility] ER DIZZY, TROUBLE WITH BALANCE, SOB [id number] 09/28/2015 10:12:00 Document Registration [id number] 04/30/2014 14:45:00 Document Registration [id number] 04/30/2014 14:45:00 Document Registration [id number] 10/24/2011 08:58:00 Document Registration [id number] 08/30/2011 08:09:00 Document Registration [id number] 08/22/2011 11:35:00 Document Registration [id number] 08/20/2011 18:22:00 Document Registration [id number] 01/13/2011 13:26:00 Document Registration [id number] 10/04/2010 14:39:00 Document Registration [id number] 06/06/2010 07:00:00 Document Registration [id number] 06/01/2010 15:18:00 Document Registration [id number] 08/10/2009 06:37:00 Document Registration [id number] 08/08/2009 16:59:00 Document Registration 11/29/09 09/20/2017 08:23:10 09/20/2017 23:59:59 CLS Outpatient Laura Aragon
[2017-10-06] MEDS ORDERED: ASPIRIN 81 MG CHEW (CHILDREN'S ASA) PO ONE (15:30)
--- NOTE | 2017-10-06 15:32 | ED Cardiac General ---
History of Present Illness General Chief Complaint: Chest Pain Stated Complaint: DIZZY, TROUBLE WITH BALANCE, SOB Nursing Triage Note: PT PRESENTS TO ED WITH COMPLAINTS OF CHEST PRESSURE, LIGHTHEADEDNESS, AND SOA SINCE THIS AM. PT REPORTS TAKING 1 NITRO SHUTTLE REPAIRER. PT HAS HX OF AFIB AND IS ON BLOOD THINERS. Source: patient Exam Limitations: no limitations History of Present Illness Date Seen by Provider: Oct 06, 2017 Time Seen by Provider: 15:10 Initial Comments The patient resistance to ER by private conveyance with his spouse and a chief complaint for one day now he's been experiencing some pressure in his neck, heart palpitations and a sharp pain for just a few minutes on the right side of his chest that radiated to the center of his chest. It is not reproduced by deep inspiration or pressing on his chest. He took one of his nitroglycerin and it made the pressure in his neck go down some but not all the way. He took the nitroglycerin 11:30 this morning. He has a history of atrial fibrillation and he is on Eliquis twice a day. He is known to Dr. Fung. He has had one angioplasty but no stents. He is on Plavix. He is not having any nausea, sweats , chills, fever. He does get short of breath with exertion even just talking. He has no history of smoking, COPD or asthma. He is also experiencing for the past 2 days some dizziness which he describes as the room spinning around past his eyes as well as feeling lightheaded like he could pass out. This made worse by changing positions, sitting up or rolling over. He does not have a history of vertigo that he knows of. He is not having any allergic rhinitis or URI symptoms. He says ears do pop feel like they are under water for the past couple days. 9 days ago he had a colonoscopy and was doing okay until about 3-4 days ago he started having some blood in his stool. He stopped taking his Eliquis an Plavix for 3 days and restarted it again today as the bleeding had stopped. He was seen in the ER for this and they told him his hemoglobin was okay. He had 2 or 3 polyps removed from his colon and a biopsy from his esophagus. NTG SL SHUTTLE REPAIRER: Yes (0.4 X 1) ASA po SHUTTLE REPAIRER: No Allergies and Home Medications Allergies Coded Allergies: NKANo Known Allergies (Unverified Allergy, Mild, 5/17/18) Home Medications Acetaminophen 500 Mg Tablet, 500-1,000 MG PO Q6H PRN for PAIN, (Reported) TAKES 1-2 (500 MG) TABLETS Allopurinol 100 Mg Tablet, 100 MG PO DAILY, (Reported) Amlodipine Besylate 10 Mg Tablet, 10 MG PO DAILY, (Reported) Apixaban 2.5 Mg Tablet, 5 MG PO BID, (Reported) TAKES 2 (2.5 MG) TABLETS Calcium Carb/Magnesium Hydrox 1 Each Tab.chew, 1 TAB PO DAILY PRN PRN for GAS, ( Reported) Clopidogrel Bisulfate 75 Mg Tablet, 75 MG PO DAILY, (Reported) Donepezil HCl 5 Mg Tablet, 5 MG PO HS, (Reported) Doxazosin Mesylate 4 Mg Tablet, 4 MG PO HS, (Reported) Escitalopram Oxalate 5 Mg Tablet, 5 MG PO DAILY, (Reported) Finasteride 5 Mg Tablet, 5 MG PO DAILY, (Reported) Lisinopril/Hydrochlorothiazide 1 Each Tablet, 2 TAB PO DAILY, (Reported) Metformin HCl 500 Mg Tablet, 500 MG PO DAILY, (Reported) Metoprolol Tartrate 25 Mg Tablet, 25 MG PO BID, (Reported) Pantoprazole Sodium 40 Mg Gransarithakt.dr, 40 MG PO DAILY Prescribed by: SKYLAR FUNG on 05/09/16 1431 Sucralfate 1 Gm Tablet, 1 GM PO QID Prescribed by: SAMMI BEAN on 09/27/17 1251 Patient Home Medication List Home Medication List Reviewed: Yes Review of Systems Constitutional: No chills; dizziness; No fever; malaise EENTM: Blurred Vision; No Double Vision Respiratory: Denies Cough; Shortness of Air, SOA With Exertion; Denies Wheezing Cardiovascular: See HPI, Chest Pain (pressure radiating to the neck bilaterally ), Lightheadedness, Palpitations Gastrointestinal: Denies Constipated, Denies Diarrhea, Denies Nausea Genitourinary: Denies Burning, Denies Discharge, Denies Drainage Musculoskeletal: No back pain, No joint pain Skin: No pruritus, No rash Psychiatric/Neurological: Denies Headache, Denies Numbness Past Xfyrkxs-Lmsjxq-Nezdsi Hx Patient Social History Alcohol Use: Denies Use Number of Drinks Today: AA Alcohol Beverage of Choice: Beer Recreational Drug Use: No Smoking Status: Former Smoker Type Used: Cigarettes Former Smoker, Quit: Aug 07, 1987 Recent Foreign Travel: No Contact w/Someone Who Travel: No Recent Infectious Disease Expo: No Recent Hopitalizations: No Physical Abuse: No Sexual Abuse: No Mistreated: No Immunizations Up To Date Tetanus Booster (TDap): Less than 5yrs PED Vaccines UTD: No Date of Pneumonia Vaccine: Feb 10, 2015 Date of Influenza Vaccine: Feb 18, 2017 Seasonal Allergies Seasonal Allergies: Yes Past Medical History Surgeries: Yes (HERNIA SURGERY, HEMORRHOIDS, EYE MUSCLE SURGERY, skin graft) Abdominal, Gallbladder Respiratory: No (SOA increasing over last 3-4 weeks ) Currently Using CPAP: No Currently Using BIPAP: No Cardiac: Yes Atrial Fibrillation, Coronary Artery Disease, Hypertension Neurological: Yes (Myalgia) Reproductive Disorders: No Sexually Transmitted Disease: No HIV/AIDS: No Genitourinary: Yes Benign Prostatic Hyperpl Gastrointestinal: Yes (HX OF COLON CA) Gastroesophageal Reflux, Polyps Musculoskeletal: Yes Degenerate Disk Disease, Arthritis, Chronic Back Pain, Gout Endocrine: Yes (metformin) Diabetes, Non-Insulin dep HEENT: Yes Cataract Loss of Vision: Denies Hearing Impairment: Hard of Hearing Cancer: Yes Skin, Colon Did You Recieve Any Treatments: Yes What Type of Treatment Did You: Surgical Intervention Psychosocial: Yes Anxiety, Depression Nursing Suicide Risk Score: 0 Integumentary: Yes (skin graft to left graham) Blood Disorders: No Adverse Reaction/Blood Tranf: No (N/A) Family Medical History Cardiovascular disease 19 FATHER Hypertension 19 FATHER Physical Exam Vital Signs Vital Signs - First Documented Capillary Refill : Less Than 3 Seconds General Appearance: No Apparent Distress, WD/WN HEENT: PERRL/EOMI, Pharynx Normal, TM Abnormal (L), TM Abnormal (R) (bilateral clear effusion without injection, erythema or tenderness to manipulation of the ear) Neck: Full Range of Motion, Non Tender, Supple Respiratory: Chest Non Tender, Lungs Clear, Normal Breath Sounds, No Accessory Muscle Use, No Respiratory Distress Cardiovascular: No Edema, Normal Peripheral Pulses, Irregularly Irregular Gastrointestinal: Normal Bowel Sounds, Non Tender, Soft Extremity: Normal Capillary Refill, No Pedal Edema Neurologic/Psychiatric: Alert, Oriented x3, Normal Mood/Affect, jumpbasting lining baster II-XII Norm as Tested, Other (negative examination on head impulse, nystagmus and test of skew. ) Skin: Normal Color, Warm/Dry Progress/Results/Core Measures Results/Orders Lab Results Laboratory Tests Test 10/06/17 14:37 Range/Units White Blood Count 5.4 4.3-11.0 10^3/uL Red Blood Count 3.42 L 4.35-5.85 10^6/uL Hemoglobin 10.9 #L 13.3-17.7 G/DL Hematocrit 31 L 40-54 % Mean Corpuscular Volume 90 80-99 FL Mean Corpuscular Hemoglobin 32 25-34 PG Mean Corpuscular Hemoglobin Concent 35 32-36 G/DL Red Cell Distribution Width 14.1 10.0-14.5 % Platelet Count 197 130-400 10^3/uL Mean Platelet Volume 9.7 7.4-10.4 FL Neutrophils (%) (Auto) 58 42-75 % Lymphocytes (%) (Auto) 28 12-44 % Monocytes (%) (Auto) 13 H 0-12 % Eosinophils (%) (Auto) 1 0-10 % Basophils (%) (Auto) 0 0-10 % Neutrophils # (Auto) 3.1 1.8-7.8 X 10^3 Lymphocytes # (Auto) 1.5 1.0-4.0 X 10^3 Monocytes # (Auto) 0.7 0.0-1.0 X 10^3 Eosinophils # (Auto) 0.1 0.0-0.3 10^3/uL Basophils # (Auto) 0.0 0.0-0.1 10^3/uL Prothrombin Time 15.8 H 12.2-14.7 SEC INR Comment 1.3 0.8-1.4 Activated Partial Thromboplast Time 33 24-35 SEC Sodium Level 138 135-145 MMOL/L Potassium Level 3.9 3.6-5.0 MMOL/L Chloride Level 106 98-107 MMOL/L Carbon Dioxide Level 23 21-32 MMOL/L Anion Gap 9 5-14 MMOL/L Blood Urea Nitrogen 11 7-18 MG/DL Creatinine 0.79 0.60-1.30 MG/DL Estimat Glomerular Filtration Rate > 60 BUN/Creatinine Ratio 14 Glucose Level 136 H 70-105 MG/DL Calcium Level 8.9 8.5-10.1 MG/DL Magnesium Level 2.0 1.8-2.4 MG/DL Total Bilirubin 0.9 0.1-1.0 MG/DL Aspartate Amino Transf (AST/SGOT) 19 5-34 U/L Alanine Aminotransferase (ALT/SGPT) 21 0-55 U/L Alkaline Phosphatase 53 40-136 U/L Myoglobin 49.1 10.0-92.0 NG/ML Troponin I < 0.30 <0.30 NG/ML Total Protein 6.5 6.4-8.2 GM/DL Albumin 3.9 3.2-4.5 GM/DL My Orders Orders - NICHOLAS GUERRERO Cbc With Automated Diff (10/06/17 15:25) Magnesium (10/06/17 15:25) Chest 1 View, Ap/Pa Only (10/06/17 15:25) Ekg Tracing (10/06/17 15:25) Cardiac Profile 1 (10/06/17 15:25) Comprehensive Metabolic Panel (10/06/17 15:25) Myoglobin Serum (10/06/17 15:25) Protime With Inr (10/06/17 15:25) Partial Thromboplastin Time (10/06/17 15:25) O2 (10/06/17 15:25) Monitor-Rhythm Ecg Trace Only (10/06/17 15:25) Lipid Panel (10/07/17 06:00) Aspirin Chewable Tablet (Baby Aspirin Ch (10/06/17 15:30) Saline Lock/Iv-Start (10/06/17 15:25) Ct Head Wo (10/06/17 15:25) Orthostatic Vital Signs (Adult (10/06/17 15:48) Medications Given in ED Current Medications Medications Dose Ordered Sig/Jaylen Route Start Time Stop Time Status Last Admin Dose Admin Aspirin 324 mg ONCE ONCE PO 10/06/17 15:30 10/06/17 15:31 DC 10/06/17 15:39 324 MG Vital Signs/I&O 10/06/17 10/06/17 14:46 14:46 Temp 97.8 Pulse 65 Resp 20 B/P (MAP) 115/82 (93) Pulse Ox 98 O2 Delivery Room Air Room Air Blood Pressure Mean: 93 Progress Progress Note #1: Time: 15:46 Progress Note Seems like he is describing to problems #1 being the vertigo could be related to his bilateral otitis media with effusion. We can teach him Live maneuvers and put him on a nasal steroid for that. Secondly he has some pressure and pain in his chest as well as being lightheaded which could be more related to atrial fibrillation if it's getting into rapid ventricular response however is not doing that presently. We'll have him do some orthostatic vitals to evaluate this. His blood pressure sitting around 95-105 systolic which his says is unusual for him. Finally we could completely rule out a central cause of his vertigo by doing a CT scan looking for a bleed in the posterior distribution. Being on eliquis makes a stroke pretty unlikely. Cardiac catheterization from May [address] Fung: Small vessel disease especially in the circumflex artery not amenable to intervention. The LAD has moderate disease without obstructive disease. The right coronary artery has moderate disease at proximal and distal portion. The right PDA has significant disease but it is fairly small artery and not amenable to intervention. Normal left ventricular size and systolic function with an EF of 60%. Normal end -diastolic pressure without signs of congestive heart failure. Progress Note #2: Time: 16:21 Progress Note Hemoglobin dropped 3 points in the last 5 days probably due to his described colorectal bleeding however this is still at 10.9 not low enough to explain his shortness of breath or syncope/near syncope. Initial ECG Impression Date: Oct 06, 2017 Initial ECG Impression Time: 14:37 Initial ECG Rate: 75 Initial ECG Rhythm: A Fib/Flutter Initial ECG Intervals: QT (465) Initial ECG Impression: Atrial Fibrillation Initial ECG Comparisson: Unchanged Comment Atrial fibrillation without rapid ventricular response and no ST segment elevation or depression. Diagnostic Imaging Diagonstic Imaging: Xray Plain Films/CT/US/NM/MRI: chest (1v) Comments VIA [facility]. [place], [place] NAME: LISSET BOBBY [facility] REC#: [id number] PT STATUS: REG ER : 1945 PHYSICIAN: NICHOLAS GUERRERO MD ADMIT DATE: 10/06/17/ER Draft Date of Exam:10/06/17 CHEST 1 VIEW, AP/PA ONLY INDICATION: Dizziness. COMPARISON: 05/08/2016. EXAMINATION: Single view of the chest was obtained. FINDINGS: The lungs are well-aerated. There are no infiltrates. There are no masses present. The heart is not enlarged. There is no pulmonary edema. No hilar adenopathy. No pneumothorax or pleural effusion. No bony lesions. IMPRESSION: Negative portable chest. Dictated on workstation # [id number] Dict: 10/06/17 1654 Trans: 10/06/17 1720 PJ [id number] Interpreted by: KODAK BARROW MD Electronically signed by: Reviewed: Reviewed by Me Diagonstic Imaging: CT Plain Films/CT/US/NM/MRI: head Comments No acute intracranial hemorrhage, mass effect, tumor, midline shift or ventricular widening. [email or web address] [place] [place] NAME: LISSET BOBBY [facility] REC#: [id number] PT STATUS: REG ER : 1945 PHYSICIAN: NICHOLAS GUERRERO MD ADMIT DATE: 10/06/17/ER Draft Date of Exam:10/06/17 CT HEAD WO PROCEDURE: CT head without contrast. TECHNIQUE: Multiple contiguous axial images were obtained through the brain without the use of intravenous contrast. INDICATION: Dizziness. COMPARISON: 10/04/2010. FINDINGS: There is mild cortical atrophy. Ventricles appear normal. There is no mass effect. There is no intracranial hemorrhage. No extra-axial fluid collection. Basal cisterns are clear. Mastoid air cells and paranasal sinuses are clear. There are no bony lesions. IMPRESSION: Atrophic changes with no acute abnormality. Dictated on workstation # [id number] Dict: 10/06/17 1652 Trans: 10/06/17 1715 PJ [id number] Interpreted by: KODAK BARROW MD Electronically signed by: Reviewed: Reviewed by Me Departure Communication (Admissions) Time/Spoke to Admitting Phy: 17:37 Dr. Townsend discussed case lab EKG imaging and he will see the patient tomorrow Time/Spoke to Consulting Phy: 17:30 Dr. Fung discussed case lab imaging EKG and findings and he'll see the patient tomorrow Impression Primary Impression: Chest pain Qualified Codes: R07.9 - Chest pain, unspecified Additional Impressions: Vertigo Near syncope Disposition: ADMITTED INPATIENT Condition: Stable Admissions Decision to Admit Reason: Admit from ER (General) Decision to Admit/Date: Oct 06, 2017 Time/Decision to Admit Time: 17:38 Departure-Patient Inst. Referrals: ANA RAMESH DO (PCP/Family) Primary Care Physician Copy Copies To 1: SKYLAR FUNG MD; ANA RAMESH TITUS J Oct 06, 2017 15:32
[2017-10-06 15:36] LABS: BASOPHILS % (AUTO) 0 % (0-10); EOSINOPHILS # (AUTO) 0.1 10^3/uL (0.0-0.3); EOSINOPHILS % (AUTO) 1 % (0-10); HEMATOCRIT 31 % (40-54); HEMOGLOBIN 10.9 G/DL (13.3-17.7); LYMPHOCYTES # (AUTO) 1.5 X 10^3 (1.0-4.0); LYMPHOCYTES % (AUTO) 28 % (12-44); MEAN CORPUSCULAR HEMOGLOBIN 32 PG (25-34); MEAN CORPUSCULAR HGB CONC 35 G/DL (32-36); MEAN CORPUSCULAR VOLUME 90 FL (80-99); MEAN PLATELET VOLUME 9.7 FL (7.4-10.4); MONOCYTES # (AUTO) 0.7 X 10^3 (0.0-1.0); MONOCYTES % (AUTO) 13 % (0-12); NEUTROPHILS # (AUTO) 3.1 X 10^3 (1.8-7.8); NEUTROPHILS % (AUTO) 58 % (42-75); PLATELET COUNT 197 10^3/uL (130-400); RED BLOOD COUNT 3.42 10^6/uL (4.35-5.85); RED CELL DISTRIBUTION WIDTH 14.1 % (10.0-14.5); WHITE BLOOD COUNT 5.4 10^3/uL (4.3-11.0)
[2017-10-06 15:41] LABS: INR 1.3 (0.8-1.4); PROTHROMBIN TIME PATIENT 15.8 SEC (12.2-14.7)
[2017-10-06 15:48] LABS: ALANINE AMINOTRANSFERASE 21 U/L (0-55); ALBUMIN 3.9 GM/DL (3.2-4.5); ALKALINE PHOSPHATASE 53 U/L (40-136); BILIRUBIN,TOTAL 0.9 MG/DL (0.1-1.0); BUN/CREATININE RATIO 14; CALCIUM 8.9 MG/DL (8.5-10.1); CARBON DIOXIDE 23 MMOL/L (21-32); CHLORIDE 106 MMOL/L (98-107); CREATININE SERUM 0.79 MG/DL (0.60-1.30); GFR ESTIMATED > 60; GLUCOSE 136 MG/DL (70-105); POTASSIUM 3.9 MMOL/L (3.6-5.0); SODIUM 138 MMOL/L (135-145); TOTAL PROTEIN 6.5 GM/DL (6.4-8.2)
[2017-10-06 15:54] LABS: MYOGLOBIN SERUM 49.1 NG/ML (10.0-92.0)
--- NOTE | 2017-10-06 17:16 | Diagnostic Imaging Report ---
PROCEDURE: CT head without contrast. TECHNIQUE: Multiple contiguous axial images were obtained through the brain without the use of intravenous contrast. INDICATION: Dizziness. COMPARISON: 10/04/2010. FINDINGS: There is mild cortical atrophy. Ventricles appear normal. There is no mass effect. There is no intracranial hemorrhage. No extra-axial fluid collection. Basal cisterns are clear. Mastoid air cells and paranasal sinuses are clear. There are no bony lesions. IMPRESSION: Atrophic changes with no acute abnormality. Dictated by: Dictated on workstation # [id number]
--- NOTE | 2017-10-06 17:20 | Diagnostic Imaging Report ---
INDICATION: Dizziness. COMPARISON: 05/08/2016. EXAMINATION: Single view of the chest was obtained. FINDINGS: The lungs are well-aerated. There are no infiltrates. There are no masses present. The heart is not enlarged. There is no pulmonary edema. No hilar adenopathy. No pneumothorax or pleural effusion. No bony lesions. IMPRESSION: Negative portable chest. Dictated by: Dictated on workstation # [id number]
[2017-10-06] MEDS ORDERED: ACETAMINOPHEN 500 MG TAB (TYLENOL) PO PRN (19:15)
[2017-10-06] MEDS ORDERED: ONDANSETRON 4 MG/2 ML (SDV) Z0FRAN IV PRN (19:15)
[2017-10-06] MEDS ORDERED: NITROGLYCERIN 0.4 MG SL TABS BTL 25'S SL PRN (19:30)
[2017-10-06] MEDS ORDERED: morphine INJ 4 MG/ML 1 ML (VIAL/SYRINGE) IV PRN (19:30)
[2017-10-06 19:49] VITALS: BP 139/76
[2017-10-06 20:00] VITALS: BP 134/82
[2017-10-06 20:15] VITALS: BP 132/74
[2017-10-06 20:30] VITALS: BP 144/81
[2017-10-06 20:45] VITALS: BP 139/74
[2017-10-06] MEDS ORDERED: ATORVASTATIN 40 MG (LIPITOR) TABLET PO SCH (21:00)
[2017-10-06] MEDS ORDERED: PETROLATUM JELLY(VASELINE) 2.5 OZ TUBE ONE (21:47)
[2017-10-06 22:11] VITALS: BP 128/64
[2017-10-06] MEDS: ALLOPURINOL 100 MG (ZYLOPRIM) TAB PO SCH (22:16)
[2017-10-06] MEDS: APIXABAN 5 MG (ELIQUIS) TABLET PO SCH (22:16)
[2017-10-06] MEDS: meTOprolol TARTRATE 25 MG (LOPRESSOR) TABLET PO SCH (22:22)
[2017-10-07] VITALS: BP 125/79
[2017-10-07 04:00] VITALS: BP 126/70
[2017-10-07 06:43] LABS: BASOPHILS % (AUTO) 0 % (0-10); EOSINOPHILS # (AUTO) 0.1 10^3/uL (0.0-0.3); EOSINOPHILS % (AUTO) 2 % (0-10); HEMATOCRIT 29 % (40-54); HEMOGLOBIN 10.1 G/DL (13.3-17.7); LYMPHOCYTES # (AUTO) 1.1 X 10^3 (1.0-4.0); LYMPHOCYTES % (AUTO) 27 % (12-44); MEAN CORPUSCULAR HEMOGLOBIN 32 PG (25-34); MEAN CORPUSCULAR HGB CONC 35 G/DL (32-36); MEAN CORPUSCULAR VOLUME 91 FL (80-99); MEAN PLATELET VOLUME 9.7 FL (7.4-10.4); MONOCYTES # (AUTO) 0.5 X 10^3 (0.0-1.0); MONOCYTES % (AUTO) 11 % (0-12); NEUTROPHILS # (AUTO) 2.6 X 10^3 (1.8-7.8); NEUTROPHILS % (AUTO) 61 % (42-75); PLATELET COUNT 161 10^3/uL (130-400); RED BLOOD COUNT 3.16 10^6/uL (4.35-5.85); RED CELL DISTRIBUTION WIDTH 13.7 % (10.0-14.5); WHITE BLOOD COUNT 4.2 10^3/uL (4.3-11.0)
[2017-10-07 07:02] LABS: BUN/CREATININE RATIO 13; CALCIUM 8.6 MG/DL (8.5-10.1); CARBON DIOXIDE 20 MMOL/L (21-32); CHLORIDE 108 MMOL/L (98-107); CREATININE SERUM 0.76 MG/DL (0.60-1.30); GFR ESTIMATED > 60; GLUCOSE 148 MG/DL (70-105); POTASSIUM 3.8 MMOL/L (3.6-5.0); SODIUM 139 MMOL/L (135-145)
[2017-10-07 07:05] LABS: CHOLESTEROL 101 MG/DL (< 200); HDL CHOLESTEROL 31 MG/DL (40-60); TRIGLYCERIDES 168 MG/DL (<150); VLDL CHOLESTEROL 34 MG/DL (5-40)
[2017-10-07 07:56] VITALS: BP 135/72
[2017-10-07] MEDS ORDERED: ASPIRIN E.C. 81 MG (ECOTRIN) TAB PO SCH (09:00)
[2017-10-07] MEDS ORDERED: lisINopril 20 MG (PRINIVIL) TABLET PO SCH (09:00)
[2017-10-07] MEDS ORDERED: amLODIPine 10 MG (NORVASC) TAB PO SCH (09:00)
[2017-10-07] MEDS ORDERED: HYDROCHLOROTHIAZIDE 12.5 MG (HCTZ) CAP PO SCH (09:00)
[2017-10-07] MEDS ORDERED: CLOPIDOGREL 75 MG (PLAVIX) TABLET PO SCH (09:00)
[2017-10-07] MEDS ORDERED: FINASTERIDE (PROSCAR) 5 MG TAB PO SCH (09:00)
[2017-10-07] MEDS: APIXABAN 5 MG (ELIQUIS) TABLET PO SCH (09:01)
[2017-10-07] MEDS: ALLOPURINOL 100 MG (ZYLOPRIM) TAB PO SCH (09:02)
[2017-10-07] MEDS: meTOprolol TARTRATE 25 MG (LOPRESSOR) TABLET PO SCH (09:02)
--- NOTE | 2017-10-07 09:29 | Consultation-Cardiology ---
HPI-Cardiology Cardiology Consultation Date of Consultation 10/07/17 Date of Admission Time Seen by Provider: 09:23 Indication: chest pain HPI 72 years old gentleman with known coronary artery disease, small vessels not amendable to intervention was in his usual state of health until yesterday when he started fighting lightheaded, slightly dizzy with borderline hypotension, started having chest pain described it as pressure in the upper chest and around his neck. Responded to sublingual nitroglycerin, came into the emergency room and had another episode of discomfort responded to nitroglycerin , this morning he is sitting comfortably in a chair. Denied any further episode of chest pain. No palpitation, blood pressure is better at this time. Home Medications & Allergies Allergies: Coded Allergies: NKANo Known Allergies (Unverified Allergy, Mild, 09/19/17) Home Medication List Reviewed: Yes NYI-Vhhqqd-Fardwj Hx Patient Social History Marital Status: Employed/Student: retired Alcohol Use: Denies Use Recreational Drug Use: No Smoking Status: Former Smoker Former smoker/When Quit: Sep 01, 1986 Type Used: Cigarettes Recent Foreign Travel: No Recent Infectious Disease Expo: No Recent Hopitalizations: No Physical Abuse Screen: No Sexual Abuse: No Immunizations Up To Date Tetanus Booster (TDap): Less than 5yrs Date of Pneumonia Vaccine: Feb 10, 2015 Date of Influenza Vaccine: Feb 18, 2017 Past Medical History past medical history as discussed below Family Medical History Family History: Cardiovascular disease 19 FATHER Hypertension 19 FATHER Constitutional: no symptoms reported, see HPI, dizziness EENTM: see HPI, no symptoms reported Respiratory: see HPI; No cough; dyspnea on exertion; No hemoptysis, No orthopnea, No phlegm, No short of breath, No stridor, No wheezing, No other Cardiovascular: see HPI, chest pain; No edema, No Hx of Intervention, No palpitations, No syncope, No vascular heart diseas, No other Gastrointestinal: no symptoms reported, see HPI Genitourinary: no symptoms reported, see HPI Musculoskeletal: no symptoms reported, see HPI Skin: see HPI, other (basal cell carcinoma was removed last week behind his left ear) Psychiatric/Neurological: No Symptoms Reported, See HPI Reviewed Test Results Reviewed Test Results Lab Laboratory Tests Test 10/06/17 14:37 10/07/17 06:20 Range/Units White Blood Count 5.4 4.2 L 4.3-11.0 10^3/uL Red Blood Count 3.42 L 3.16 L 4.35-5.85 10^6/uL Hemoglobin 10.9 #L 10.1 L 13.3-17.7 G/DL Hematocrit 31 L 29 L 40-54 % Mean Corpuscular Volume 90 91 80-99 FL Mean Corpuscular Hemoglobin 32 32 25-34 PG Mean Corpuscular Hemoglobin Concent 35 35 32-36 G/DL Red Cell Distribution Width 14.1 13.7 10.0-14.5 % Platelet Count 197 161 130-400 10^3/uL Mean Platelet Volume 9.7 9.7 7.4-10.4 FL Neutrophils (%) (Auto) 58 61 42-75 % Lymphocytes (%) (Auto) 28 27 12-44 % Monocytes (%) (Auto) 13 H 11 0-12 % Eosinophils (%) (Auto) 1 2 0-10 % Basophils (%) (Auto) 0 0 0-10 % Neutrophils # (Auto) 3.1 2.6 1.8-7.8 X 10^3 Lymphocytes # (Auto) 1.5 1.1 1.0-4.0 X 10^3 Monocytes # (Auto) 0.7 0.5 0.0-1.0 X 10^3 Eosinophils # (Auto) 0.1 0.1 0.0-0.3 10^3/uL Basophils # (Auto) 0.0 0.0 0.0-0.1 10^3/uL Prothrombin Time 15.8 H 12.2-14.7 SEC INR Comment 1.3 0.8-1.4 Activated Partial Thromboplast Time 33 24-35 SEC Sodium Level 138 139 135-145 MMOL/L Potassium Level 3.9 3.8 3.6-5.0 MMOL/L Chloride Level 106 108 H 98-107 MMOL/L Carbon Dioxide Level 23 20 L 21-32 MMOL/L Anion Gap 9 11 5-14 MMOL/L Blood Urea Nitrogen 11 10 7-18 MG/DL Creatinine 0.79 0.76 0.60-1.30 MG/DL Estimat Glomerular Filtration Rate > 60 > 60 BUN/Creatinine Ratio 14 13 Glucose Level 136 H 148 H 70-105 MG/DL Calcium Level 8.9 8.6 8.5-10.1 MG/DL Magnesium Level 2.0 1.8-2.4 MG/DL Total Bilirubin 0.9 0.1-1.0 MG/DL Aspartate Amino Transf (AST/SGOT) 19 5-34 U/L Alanine Aminotransferase (ALT/SGPT) 21 0-55 U/L Alkaline Phosphatase 53 40-136 U/L Myoglobin 49.1 10.0-92.0 NG/ML Troponin I < 0.30 < 0.30 <0.30 NG/ML Total Protein 6.5 6.4-8.2 GM/DL Albumin 3.9 3.2-4.5 GM/DL Triglycerides Level 168 H <150 MG/DL Cholesterol Level 101 < 200 MG/DL LDL Cholesterol Direct 49 1-129 MG/DL VLDL Cholesterol 34 5-40 MG/DL HDL Cholesterol 31 L 40-60 MG/DL Physical Exam Vital Signs Vital Signs - First Documented Capillary Refill : Less Than 3 Seconds General Appearance: No Apparent Distress, WD/WN Eyes: Bilateral Eye Normal Inspection, Bilateral Eye PERRL, Bilateral Eye EOMI HEENT: PERRL/EOMI, TMs Normal, Normal ENT Inspection, Pharynx Normal Neck: Full Range of Motion, Normal Inspection, Non Tender, Supple, Carotid Bruit Respiratory: Chest Non Tender, Lungs Clear, Normal Breath Sounds, No Accessory Muscle Use, No Respiratory Distress Cardiovascular: Regular Rate, Rhythm, No Edema, No Gallop, No JVD, No Murmur, Normal Peripheral Pulses Gastrointestinal: Normal Bowel Sounds, No Organomegaly, No Pulsatile Mass, Non Tender, Soft Back: Normal Inspection, No CVA Tenderness, No Vertebral Tenderness Extremity: Normal Capillary Refill, Normal Inspection, Normal Range of Motion, Non Tender, No Calf Tenderness, No Pedal Edema Neurologic/Psychiatric: Alert, Oriented x3, No Motor/Sensory Deficits, Normal Mood/Affect Skin: Normal Color, Warm/Dry Lymphatic: No Adenopathy A/P-Cardiology Admission Diagnosis Chest pain nonspecific etiology Coronary artery disease Hypertension Hyperlipidemia Assessment/Plan Chest pain, history of chronic stable angina, had some chest tightness yesterday and last night responded to sublingual nitroglycerin, EKG and cardiac enzymes did not show any significant obstructive disease. Continue to monitor Coronary artery disease-cardiac catheterization done on October 22, [address] [facility] revealing left main with 25 percent narrowing. LAD had apical 75-80 percent narrowing reduced to less than 25 percent following balloon angioplasty. First diagonal with 30-40 percent narrowing. Ramus branch with mild 25 percent narrowing. Circumflex artery with 30-40 percent diffuse narrowing and small system. RCA was moderately large vessel with 20-25 percent stenosis. Posterior lateral branch had 80 percent narrowing reduced to less than 25 percent following balloon angioplasty. PDA had 70 percent mid narrowing reduced to less than 25 percent following balloon angioplasty. her peak cardiac catheterization done in May 2016 showing moderate to severe coronary artery disease, mainly small vessels not amendable to intervention. Medical therapy is recommended no intervention is warranted paroxysmal atrial fibrillation, maintained on Eliquis. Continue to monitor. [id number] score is 3, yearly risk of stroke without oral anticoagulation is 3.2 percent. Tolerating Eliquis well. Hypertension, had borderline hypotension, I will discontinue hydrochlorothiazide and maintained him on all other medications. Status post basal cell carcinoma extraction procedure done at last week. Depression/anxiety-managed by primary care physician Diabetes mellitus, followed and managed by primary care physician Hyperlipidemia, continue on current medications, continue to monitor From cardiology standpoint patient can be discharged and followed as an outpatient Clinical Quality Measures AMI/AHF: ASA po Prior to arrival: No DVT/VTE Risk/Contraindication: Risk Factor Score Per Nursin RFS Level Per Nursing on Admit: 4+=Very High SKYLAR CAMPOS MD Oct 07, 2017 9:29 am
[2017-10-07] MEDS ORDERED: METF10002 PO (10:53)
[2017-10-07] MEDS ORDERED: RANI150T46 PO (10:53)
[2017-10-07] MEDS ORDERED: CETI10TA20 PO (10:53)
[2017-10-07] MEDS ORDERED: ATOR10TA66 PO (10:53)
[2017-10-07] MEDS ORDERED: APIX5TAB PO (10:53)
[2017-10-07] MEDS ORDERED: NITR0.4T42 SL (10:56)
[2017-10-07] MEDS ORDERED: NITROGLYCERIN 0.4 MG SL TABS BTL 25'S SL PRN (12:30)
[2017-10-07] MEDS ORDERED: NON-FORMULARY MEDICATION 1 EA EA (Ranitidine HCl (Zantac) 150 MG) PO PRN (12:30)
[2017-10-07] MEDS ORDERED: ESCI5TAB12 PO (12:32)
[2017-10-07] MEDS ORDERED: LISI-552 PO (12:32)
--- NOTE | 2017-10-07 12:34 | Discharge Inst-Simple/Standard ---
Discharge Inst-Standard Discharge Medications New, Converted or Re-Newed RX: Transmitted to Pharmacy Patient Instructions/Follow Up Plan of Care/Instructions/FU: Fwup in 2 weeks Activity as Tolerated: Yes Discharge Diet: ADA Diet, Cardiac Diet ANA RAMESH DO Oct 07, 2017 12:34
[2017-10-07] MEDS ORDERED: FAMOTIDINE 20 MG (PEPCID) TABLET PO PRN (13:00)
[2017-10-07] MEDS ORDERED: metFORMIN 500 MG (GLUCOPHAGE) TAB PO SCH (17:00)
--- NOTE | 2017-10-07 20:27 | Short Stay Summary ---
History of Present Illness History of Present Illness Reason for visit/HPI This is a 72 year old mail who presented to the emergency room with a 2 day history of dizziness which he described as the room spinning and a 1 day history of upper chest and neck pain as well as shortness of air. He had taken a nitro which did help his upper neck pain some. Due to his history of CAD it was decided to admit him for cardiac monitoring and cardiac enzymes with cardiology consult. Date of Admission Oct 06, 2017 at 5:30 pm Date of Discharge Oct 07, 2017 at 1:32 pm Time Seen by Provider: 12:15 Attending Physician Pop Townsend MD Admitting Physician Laura Aragon DO Consult Allergies and Home Medications Allergies Coded Allergies: NKANo Known Allergies (Unverified Allergy, Mild, 09/19/17) Home Medications Acetaminophen 500 Mg Tablet, 500-1,000 MG PO Q6H PRN for PAIN-MILD, (Reported) TAKES 1-2 (500 MG) TABLETS Allopurinol 100 Mg Tablet, 100 MG PO DAILY, (Reported) Amlodipine Besylate 10 Mg Tablet, 10 MG PO DAILY, (Reported) Apixaban 5 Mg Tablet, 5 MG PO BID, (Reported) Atorvastatin Calcium 10 Mg Tablet, 10 MG PO DAILY, (Reported) Cetirizine HCl 10 Mg Tablet, 10 MG PO DAILY, (Reported) Clopidogrel Bisulfate 75 Mg Tablet, 75 MG PO DAILY, (Reported) Donepezil HCl 5 Mg Tablet, 5 MG PO HS, (Reported) Doxazosin Mesylate 4 Mg Tablet, 4 MG PO HS, (Reported) Escitalopram Oxalate 5 Mg Tablet, 10 MG PO DAILY Prescribed by: LAURA ARAGON on 10/07/17 1232 Finasteride 5 Mg Tablet, 5 MG PO DAILY, (Reported) Lisinopril 20 Mg Tablet, 20 MG PO DAILY@0900 Prescribed by: LAURA ARAGON on 10/07/17 1232 Metformin HCl 1,000 Mg Tablet, 1,000 MG PO BID, (Reported) Metoprolol Tartrate 25 Mg Tablet, 25 MG PO BID, (Reported) Nitroglycerin 0.4 Mg Tab.subl, 0.4 MG SL UD PRN for CHEST PAIN, (Reported) Ranitidine HCl 150 Mg Tablet, 150 MG PO DAILY PRN for HEARTBURN, (Reported) Patient Home Medication List Home Medication List Reviewed: Yes Past Spczcmr-Ryrdek-Ggioyr Hx Patient Social History Marrital Status: Employed/Student: retired Alcohol Use: Denies Use Number of Drinks Today: AA Alcohol Beverage of Choice: Beer Recreational Drug Use: No Smoking Status: Former Smoker Former Smoker, Quit: Aug 07, 1987 Type Used: Cigarettes Physical Abuse Screen: No Sexual Abuse: No Recent Foreign Travel: No Contact w/other who traveled: No Recent Hopitalizations: No Recent Infectious Disease Expo: No Immunizations Up To Date Tetanus Booster (TDap): Less than 5yrs Pediatric: Yes Date of Pneumonia Vaccine: Feb 10, 2015 Date of Influenza Vaccine: Feb 18, 2017 Seasonal Allergies Seasonal Allergies: Yes (POLLEN ) Surgeries Yes (HERNIA SURGERY, HEMORRHOIDS, EYE MUSCLE SURGERY, skin graft) Abdominal, Gallbladder Respiratory No Currently Using CPAP: No Currently Using BIPAP: No Cardiovascular Yes Atrial Fibrillation, Coronary Artery Disease, Hypertension Neurological Yes (Myalgia) Reproductive System Hx Reproductive Disorders: No Sexually Transmitted Disease: No HIV/AIDS: No Genitourinary Yes Benign Prostatic Hyperpl Gastrointestinal Yes (HX OF COLON CA) Gastroesophageal Reflux, Polyps Musculoskeletal Yes Degenerate Disk Disease, Arthritis, Chronic Back Pain, Gout Endocrine History of Endocrine Disorders: Yes (metformin) Endocrine Disorders: Diabetes, Non-Insulin dep Are Your Blood Sugars Over 250: No HEENT History of HEENT Disorders: Yes HEENT Disorders: Cataract Loss of Vision: Denies Hearing Impairment: Hard of Hearing Cancer Yes Skin, Colon Did You Recieve Any Treatments: Yes Type of Treatment: Surgical Intervention Psychosocial History of Psychiatric Problem: Yes Behavioral Health Disorders: Anxiety, Depression Integumentary History of Skin or Integumenta: Yes (skin graft to left graham, BASAL CELL CARCINOMAS *10) Blood Transfusions History of Blood Disorders: No Adverse Reaction to a Blood Tr: No (N/A) Family Medical History Family Hx: Cardiovascular disease 19 FATHER Hypertension 19 FATHER Constitutional: dizziness, weakness EENTM: No see HPI, No no symptoms reported, No ear discharge, No hearing loss, No ear pain, No blurred vision, No double vision, No eye pain, No tearing, No vision loss, No dental problems, No hoarseness, No mouth pain, No mouth swelling , No epistaxis, No nose congestion, No nose pain, No throat pain, No throat swelling, No other Respiratory: dyspnea on exertion, short of breath Cardiovascular: chest pain Gastrointestinal: No RUQ, No LUQ, No RLQ, No LLQ, No no symptoms reported, No see HPI, No abdominal pain, No constipation, No diarrhea, No dysphagia, No hematemesis, No heartburn, No jaundice, No loss of appetite, No melena, No nausea, No vomiting, No other Genitourinary: No no symptoms reported, No see HPI, No decreased output, No discharge, No dysuria, No frequency, No hematuria, No hesitancy, No incontinence , No nocturia, No pain, No other Musculoskeletal: neck pain Skin: No no symptoms reported, No see HPI, No change in color, No change in hair/nails, No dryness, No hx of skin cancer, No lesions, No lumps, No pruritus , No rash, No other Psychiatric/Neurological: Depressed (worsening per recently), Weakness, Other (vertigo) Physical Exam Vital Signs Vital Signs - First Documented Capillary Refill : Less Than 3 Seconds General Appearance: No Apparent Distress HEENT: Normal ENT Inspection Neck: Supple Respiratory: Lungs Clear Cardiovascular: Regular Rate, Rhythm, Systolic Murmur, Gallop/S4 Gastrointestinal: Normal Bowel Sounds, Non Tender, Soft Rectal: Deferred Back: No CVA Tenderness Extremity: Non Tender, No Calf Tenderness, No Pedal Edema Neurologic/Psychiatric: Alert, Oriented x3 Skin: Warm/Dry, Other (left postauricular area with eschar from recent skin cancer removal) Comments Laboratory Tests 10/07/17 06:20: White Blood Count 4.2L, Red Blood Count 3.16L, Hemoglobin 10.1L, Hematocrit 29L , Mean Corpuscular Volume 91, Mean Corpuscular Hemoglobin 32, Mean Corpuscular Hemoglobin Concent 35, Red Cell Distribution Width 13.7, Platelet Count 161, Mean Platelet Volume 9.7, Neutrophils (%) (Auto) 61, Lymphocytes (%) (Auto) 27, Monocytes (%) (Auto) 11, Eosinophils (%) (Auto) 2, Basophils (%) (Auto) 0, Neutrophils # (Auto) 2.6, Lymphocytes # (Auto) 1.1, Monocytes # (Auto) 0.5, Eosinophils # (Auto) 0.1, Basophils # (Auto) 0.0, Sodium Level 139, Potassium Level 3.8, Chloride Level 108H, Carbon Dioxide Level 20L, Anion Gap 11, Blood Urea Nitrogen 10, Creatinine 0.76, Estimat Glomerular Filtration Rate > 60, BUN/ Creatinine Ratio 13, Glucose Level 148H, Calcium Level 8.6, Troponin I < 0.30, Triglycerides Level 168H, Cholesterol Level 101, LDL Cholesterol Direct 49, VLDL Cholesterol 34, HDL Cholesterol 31L Clinical Quality Measures AMI/AHF: ASA po Prior to arrival: No DVT/VTE Risk/Contraindication: Risk Factor Score Per Nursin RFS Level Per Nursing on Admit: 4+=Very High Short Stay Diagnosis Discharge Diagnosis-Short Stay Final Discharge Diagnosis: 1. Acute Vertigo--likely from inner ear and dehydration 2. Chest Pain/Neck Pain--likely musculoskeletal, non cardiac etiology 3. Hypotension--stable 4. Worsening Depression Conclusion Labs Laboratory Tests 10/07/17 06:20: White Blood Count 4.2L, Red Blood Count 3.16L, Hemoglobin 10.1L, Hematocrit 29L , Mean Corpuscular Volume 91, Mean Corpuscular Hemoglobin 32, Mean Corpuscular Hemoglobin Concent 35, Red Cell Distribution Width 13.7, Platelet Count 161, Mean Platelet Volume 9.7, Neutrophils (%) (Auto) 61, Lymphocytes (%) (Auto) 27, Monocytes (%) (Auto) 11, Eosinophils (%) (Auto) 2, Basophils (%) (Auto) 0, Neutrophils # (Auto) 2.6, Lymphocytes # (Auto) 1.1, Monocytes # (Auto) 0.5, Eosinophils # (Auto) 0.1, Basophils # (Auto) 0.0, Sodium Level 139, Potassium Level 3.8, Chloride Level 108H, Carbon Dioxide Level 20L, Anion Gap 11, Blood Urea Nitrogen 10, Creatinine 0.76, Estimat Glomerular Filtration Rate > 60, BUN/ Creatinine Ratio 13, Glucose Level 148H, Calcium Level 8.6, Troponin I < 0.30, Triglycerides Level 168H, Cholesterol Level 101, LDL Cholesterol Direct 49, VLDL Cholesterol 34, HDL Cholesterol 31L Conclusion/Plan This is a 72 year old mail who presented to the emergency room with a 2 day history of dizziness which he described as the room spinning and a 1 day history of upper chest and neck pain as well as shortness of air. He had taken a nitro which did help his upper neck pain some. Due to his history of CAD it was decided to admit him for cardiac monitoring and cardiac enzymes with cardiology consult. He was admitted to the medical floor on telemetry and had repeat cardiac enzymes done. He remained in a normal sinus rhythm and had no further chest or neck pain after his admission. His vertigo also improved. Cardiology assessed the patient and felt that his chest and neck pain were noncardiac in nature. His blood pressure medications were adjusted due to the possibility of hypotension contributing to his dizziness. He did admit to worsening depression recently so his antidepressant medications will be adjusted on discharge as well. LAURA ARAGON DO Oct 07, 2017 8:27 pm
[2017-10-07] MEDS ORDERED: meTOprolol TARTRATE 25 MG (LOPRESSOR) TABLET PO SCH (21:00)
[2017-10-07] MEDS ORDERED: DONEPEZIL 5 MG (ARICEPT) TAB PO SCH (21:00)
[2017-10-07] MEDS ORDERED: doxAzosin 4 MG (CARDURA) TAB PO SCH (21:00)
[2017-10-07] MEDS ORDERED: NON-FORMULARY MEDICATION 1 EA EA (Metformin HCl 1,000 MG) PO SCH (21:00)
[2017-10-07] MEDS ORDERED: APIXABAN 5 MG (ELIQUIS) TABLET PO SCH (21:00)
[2017-10-08] MEDS ORDERED: CLOPIDOGREL 75 MG (PLAVIX) TABLET PO SCH (09:00)
[2017-10-08] MEDS ORDERED: FINASTERIDE (PROSCAR) 5 MG TAB PO SCH (09:00)
[2017-10-08] MEDS ORDERED: LORATADINE (CLARITIN) 10 MG TAB PO SCH (09:00)
[2017-10-08] MEDS ORDERED: NON-FORMULARY MEDICATION 1 EA EA (Cetirizine HCl (Zyrtec) 10 MG) PO SCH (09:00)
[2017-10-08] MEDS ORDERED: NON-FORMULARY MEDICATION 1 EA EA (Escitalopram Oxalate 5 MG) PO SCH (09:00)
[2017-10-08] MEDS ORDERED: NON-FORMULARY MEDICATION 1 EA EA (Allopurinol 100 MG) PO SCH (09:00)
[2017-10-08] MEDS ORDERED: ATORVASTATIN 10 MG (LIPITOR) TABLET PO SCH (09:00)
[2017-10-08] MEDS ORDERED: NON-FORMULARY MEDICATION 1 EA EA (Amlodipine Besylate 10 MG) PO SCH (09:00)
[2017-10-08] MEDS ORDERED: ALLOPURINOL 100 MG (ZYLOPRIM) TAB PO SCH (09:00)
== END 2017-10-07 12:37 | disposition home or self-care (01) ==
LOC: EDUNIT# 14:22 → ER 14:25 → UNDOADMOB 17:30 → 4TH 17:30 → UNDOADMOB 19:00 → UNDODISOB 10-07 13:32
PROVIDERS: ADMIT Internal Medicine; ATTEND Internal Medicine
DX: R42 Dizziness and giddiness (principal); R07.9 Chest pain, unspecified; M54.2 Cervicalgia; I95.9 Hypotension, unspecified; F32.9 Major depressive disorder, single episode, unspecified; I25.10 Atherosclerotic heart disease of native coronary artery without angina pectoris; I10 Essential (primary) hypertension; E78.5 Hyperlipidemia, unspecified; I48.0 Paroxysmal atrial fibrillation; E11.9 Type 2 diabetes mellitus without complications; F41.9 Anxiety disorder, unspecified
CPT/HCPCS: 36415; 70450; 71045; 80048; 80053; 80061; 83735; 83874; 84484; 85025; 85610; 85730; 93005; 93041; G0378

== ENCOUNTER 2017-10-19 12:30 | Emergency (ER) | payer MEDICARE ==
[~2017-10-19] VITALS: Ht 172.7 cm; Wt 93.9 kg
[~2017-10-19 12:30] MED LIST changes: +APIX5TAB PO; +ATOR10TA66 PO; +CETI10TA20 PO; +LISI-552 PO; +NITR0.4T42 SL; +RANI150T46 PO
--- OUTSIDE RECORDS SUMMARY | 2017-10-19 12:36 | XMS REPORT | Encounter Summary ---
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 Mechanic Name Role Phone Laura Aragon MD PCP Reason for Visit * Auth/Cert Status Reason Specialty Diagnoses / Referred By Referred To Procedures Contact Contact Diagnoses Mass of left ear Mass of left ear [H93.8X2] P rocedures [place] EXCISION EXTERNAL EAR PARTIAL SIMPLE REPAIR [place] ADJT TIS TRNS/REARGMT F/C/C/M/N/A/G/H/ F 10SQCM/< [place] SPLIT AGRFT F/S/N/H/F/G/M/D GT 1ST 100 CM/</1 % EXCISION BONE EXTERNAL EAR CANAL ADJACENT TISSUE TRANSFER PEDICLE FLAP DEFECT 10 SQ CM OR LESS - AXILLA GRAFT SKIN SPLIT THICKNESS HEAD/NECK Encounter Details Date Type Department Care Team Description 09/05/2017 Surgery [place] Operating Room Alvino Stone MD PARTIAL AURICULECTOMY [address] [place] [address] [place] [address] RECONSTRUCTION [phone] Social History Tobacco Use Types Packs/Day Years [...] 2017 capsule twice daily. Use while taking [place] pain medication donepezil (ARICEPT) 5 mg Take 5 mg by mouth at tablet bedtime daily. doxazosin (CARDURA) 4 mg Take 4 mg by mouth daily. tablet escitalopram oxalate Take 10 mg by mouth (LEXAPRO) 5 mg tablet daily. finasteride (PROSCAR) 5 Take [...] care doctor has referred for evaluation by release engineer for this as well as multiple skin lesions on the face and trunk. He has not been able to see dermatology yet. He states that the mass behind his left ear is tender to the touch, and it bleeds occasionally when rubbed. He appears to have several lesions on the face and trunk concerning for skin cancers. 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 He [...] OF POSTERIOR LEFT EAR LESION Surgeon: Chase Seed Specialist: Raúl In detail: Consent was obtained [...] Notes * Operative Report (Direct Entry) - Alvion Stone MD - 09/05/2017 11:54 AM CDT Formatting of this note may be different from the original. Patient: Deejay Car Date of surgery: September 05, 2017 Surgeon: Alvino Stone MD Seed Specialist: Brenda Hernández MD Indications: Deejay Car is a 72 y.o. 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 He presents for surgical excision and reconstruction. Procedures: 05683 - Excision external ear; partial 36698 - Adjacent tissue transfer or rearrangement, any [...] were anesthetized with 1% lidocaine with epinephrine [id number] - Excision external ear; partial The left [...] and attention was turned to the reconstruction. 21440 - Adjacent tissue transfer or rearrangement, any [...] MG/DL Specimen Performing Laboratory MAIN LAB [address] [place] [id number] * SURGICAL PATHOLOGY (09/05/2017 12:16 PM) Component Value Ref Range PATHOLOGY REPORT [facility] [email or web address] Department of Pathology and Laboratory Medicine [address] [place] [address] Surgical Pathology Office:[phone]:[phone] SURGICAL PATHOLOGY REPORT NAME: DEEJAY CAR RAY SURG PATH #: [id number] MR #: [id number] SPECIMEN CLASS: [facility] BILLING #: [id number] ALT ID #:LOCATION: [id number] DATE OF PROCEDURE: [...] submitted from superior to inferior as follows: [id number] sections of superior margin. [id number] between superior and inferior margin. [id number] sections of inferior margin. (sld) 09/05/2017 Intraoperative Consultation: A1FS, skin, "skin margin 12:00 to 3:00", biopsy: Negative for malignancy. B1FS, skin, "skin margin 3:00 to 6:00", biopsy: Negative for malignancy. C1FS, skin, "skin margin 6:00 to 9:00", biopsy: Negative for malignancy. D1FS, skin, "skin margin 9:00 to 12:00", biopsy: Negative for malignancy. Frozen section performed at the [facility], [facility], [address] [place] [id number]. Specimen Performing Laboratory LAB RESULTS * POC GLUCOSE (09/05/2017 9:13 AM) Component Value Ref Range Glucose, POC 204 (H) 70 - 100 MG/DL Specimen Performing Laboratory MAIN LAB [address] [place] [address] in this encounter Visit Diagnoses Diagnosis Mass [...]
--- OUTSIDE RECORDS SUMMARY | 2017-10-19 12:36 | XMS REPORT | Encounter Summary ---
Author Author [facility] Organization [facility] Address Unknown Phone Unavailable Care Team Providers Care Activity Coordinator Name Role Phone Laura Aragon MD PCP Encounter Details Date Type Department Care Team Description 10/16/2017 [facility], Basal cell carcinoma of Encounter [address] [facility]. [place], [place] [address] [address] [place] [address] [phone] Social History Tobacco Use Types Packs/Day Years Used Date Former Smoker Cigarettes 06 04 Quit: 1982 Smokeless Tobacco: Never Used Comments: 35 years ago Alcohol Use Drinks/Week oz/Week Comments No Sex Assigned at Date Recorded Not on file as of this encounter Plan of Treatment Not on fileas of this encounter Results * GRAM STAIN (10/16/2017 1:30 PM) Component Value Ref Range Battery Name GRAM STAIN Specimen Description SWAB POSTERIOR TO EAR Special Requests NONE Gram Stain RARE NEUTROPHILS MODERATE GRAM POSITIVE COCCI RARE GRAM NEGATIVE RODS Report Status FINAL 10/16/2017 Specimen Performing Laboratory Swab MAIN LAB [address] [place] [address] * CULTURE-WOUND/TISSUE/FLUID(AEROBIC ONLY)W/SENSITIVITY (10/16/2017 1:30 PM) Component Value Ref Range Battery Name ROUTINE CULTURE Specimen Description SWAB POSTERIOR TO EAR Special Requests NONE Direct Gram Stain RARE NEUTROPHILS MODERATE GRAM POSITIVE COCCI RARE GRAM NEGATIVE RODS Culture Light growth KLEBSIELLA PNEUMONIAE Moderate growth CITROBACTER FREUNDII This organism may induce beta lactamase if treated with Cephalosporins or extended spectrum Penicillins.Monitor for resistance if treatment includes these drugs. Heavy growth STAPHYLOCOCCUS AUREUS (A) Report Status FINAL 10/19/2017 Organism ID Light growth KLEBSIELLA PNEUMONIAE Organism ID Moderate growth CITROBACTER FREUNDII This organism may induce beta lactamase if treated with Cephalosporins or extended spectrum Penicillins.Monitor for resistance if treatment includes these drugs. Organism ID Heavy growth STAPHYLOCOCCUS AUREUS Specimen Performing Laboratory Swab MAIN LAB [address] [place] [address] Organism Antibiotic Method Susceptibility Light growth klebsiella Amikacin VANE (MCG/ML) <=8 SUSCEPTIBLE: pneumoniae INTERPRETATION Susceptible Light growth klebsiella Cefazolin VANE (MCG/ML) <=1 SUSCEPTIBLE: pneumoniae INTERPRETATION Susceptible Light growth klebsiella Ceftriaxone VANE (MCG/ML) <=1 SUSCEPTIBLE: pneumoniae INTERPRETATION Susceptible Light growth klebsiella Gentamicin VANE (MCG/ML) <=2 SUSCEPTIBLE: pneumoniae INTERPRETATION Susceptible Light growth klebsiella Ertapenem VANE (MCG/ML) <=0.25 SUSCEPTIBLE: pneumoniae INTERPRETATION Susceptible Light growth klebsiella Levofloxacin VANE (MCG/ML) <=1 SUSCEPTIBLE: pneumoniae INTERPRETATION Susceptible Light growth klebsiella Amoxicil/Clav Acid VANE (MCG/ML) <=4/2 SUSCEPTIBLE: pneumoniae INTERPRETATION Susceptible Light growth klebsiella Piperacil/Tazobactam VANE (MCG/ML) 4/4 SUSCEPTIBLE: pneumoniae INTERPRETATION Susceptible Light growth klebsiella Trimethsulfa VANE (MCG/ML) <=0.5/9.5 SUSCEPTIBLE: pneumoniae INTERPRETATION Susceptible Light growth klebsiella Method VANE (MCG/ML) VANE (MCG/ML) pneumoniae INTERPRETATION INTERPRETATION Moderate growth Amikacin VANE (MCG/ML) <=8 SUSCEPTIBLE: citrobacter freundii this INTERPRETATION Susceptible organism may induce beta lactamase if treated with cephalosporins or extended spectrum penicillins.monitor for resistance if treatment includes these drugs. Moderate growth Cefazolin VANE (MCG/ML) >16 RESISTANT: Resistant citrobacter freundii this INTERPRETATION organism may induce beta lactamase if treated with cephalosporins or extended spectrum penicillins.monitor for resistance if treatment includes these drugs. Moderate growth Ceftriaxone VANE (MCG/ML) <=1 SUSCEPTIBLE: citrobacter freundii this INTERPRETATION Susceptible organism may induce beta lactamase if treated with cephalosporins or extended spectrum penicillins.monitor for resistance if treatment includes these drugs. Moderate growth Gentamicin VANE (MCG/ML) <=2 SUSCEPTIBLE: citrobacter freundii this INTERPRETATION Susceptible organism may induce beta lactamase if treated with cephalosporins or extended spectrum penicillins.monitor for resistance if treatment includes these drugs. Moderate growth Ertapenem VANE (MCG/ML) <=0.25 SUSCEPTIBLE: citrobacter freundii this INTERPRETATION Susceptible organism may induce beta lactamase if treated with cephalosporins or extended spectrum penicillins.monitor for resistance if treatment includes these drugs. Moderate growth Levofloxacin VANE (MCG/ML) <=1 SUSCEPTIBLE: citrobacter freundii this INTERPRETATION Susceptible organism may induce beta lactamase if treated with cephalosporins or extended spectrum penicillins.monitor for resistance if treatment includes these drugs. Moderate growth Amoxicil/Clav Acid VANE (MCG/ML) 16/8 RESISTANT: Resistant citrobacter freundii this INTERPRETATION organism may induce beta lactamase if treated with cephalosporins or extended spectrum penicillins.monitor for resistance if treatment includes these drugs. Moderate growth Piperacil/Tazobactam VANE (MCG/ML) <=2/4 SUSCEPTIBLE: citrobacter freundii this INTERPRETATION Susceptible organism may induce beta lactamase if treated with cephalosporins or extended spectrum penicillins.monitor for resistance if treatment includes these drugs. Moderate growth Trimethsulfa VANE (MCG/ML) <=0.5/9.5 SUSCEPTIBLE: citrobacter freundii this INTERPRETATION Susceptible organism may induce beta lactamase if treated with cephalosporins or extended spectrum penicillins.monitor for resistance if treatment includes these drugs. Moderate growth Method VANE (MCG/ML) VANE (MCG/ML) citrobacter freundii this INTERPRETATION INTERPRETATION organism may induce beta lactamase if treated with cephalosporins or extended spectrum penicillins.monitor for resistance if treatment includes these drugs. Heavy growth Clindamycin VANE (MCG/ML) <=0.5 SUSCEPTIBLE: staphylococcus aureus INTERPRETATION Susceptible Heavy growth Erythromycin VANE (MCG/ML) <=0.5 SUSCEPTIBLE: staphylococcus aureus INTERPRETATION Susceptible Heavy growth Oxacillin VANE (MCG/ML) 0.5 SUSCEPTIBLE: staphylococcus aureus INTERPRETATION Susceptible Heavy growth Vancomycin VANE (MCG/ML) <=0.5 SUSCEPTIBLE: staphylococcus aureus INTERPRETATION Susceptible Heavy growth Tetracycline VANE (MCG/ML) <=0.5 SUSCEPTIBLE: staphylococcus aureus INTERPRETATION Susceptible Heavy growth Trimethsulfa VANE (MCG/ML) <=05/24 SUSCEPTIBLE: staphylococcus aureus INTERPRETATION Susceptible Heavy growth Method VANE (MCG/ML) VANE (MCG/ML) staphylococcus aureus INTERPRETATION INTERPRETATION in this encounter Visit Diagnoses Diagnosis Cancer of the skin, basal cell Basal cell carcinoma of skin, site unspecified Admitting Diagnoses Diagnosis Basal cell carcinoma of skin, unspecified
--- OUTSIDE RECORDS SUMMARY | 2017-10-19 12:36 | XMS REPORT | Clinical Summary ---
Author Author [facility] Organization [facility] Address Unknown Phone Unavailable Care Team Providers Care Career Discovery Teacher Name Role Phone Laura Aragon MD PCP Source Comments Some departments are not documenting in the electronic medical record. If you do not see the information that you expected, contact Release of Information in the Health Information Management department at [phone] for further assistance in locating additional records.[facility] Allergies Active Allergy Reactions Severity Noted [...] every Active tablet morning. escitalopram oxalate Take 10 mg by mouth Active (LEXAPRO) 5 mg tablet daily. fluorouracil (EFUDEX) 5 % Apply topically to [...] capsule twice daily. Use while 16 taking [place] pain medication LISINOPRIL PO Take 20 mg by mouth Active daily. trimethoprim/sulfamethoxa Take 1 tablet by mouth 20 tablet 0 10/17/19 10/27/19 Active zole (BACTRIM DS) 160/800 twice daily for 10 days. 18 18 mg tablet Active Problems Problem Noted Date Cancer of the skin, basal cell 09/13/2017 Ear mass, left 08/12/2017 Anticoagulated 08/12/2017 Mass of left ear 08/12/2017 Overview: Added automatically from request for surgery [id number] Encounters Date Type Specialty Care Team Description 10/16/2017 Hospital Lab Rosa Sparks, Basal cell carcinoma of Encounter PA-C skin, unspecified 10/16/2017 Office Visit Otolaryngology Rosa Sparks, Cancer of the skin, basal PA-C cell (Primary Dx) 09/13/2017 Office Visit Otolaryngology Julio C Batista, PA-C Cancer of the skin, basal cell [...] Alvino Stone MD Encounter 08/23/2017 Anesthesia Darcy Valerio, SHOP LEAD Event 08/22/2017 Telephone Otolaryngology Alvino Stone MD [...] Vital Sign Reading Time Taken Blood Pressure 130/68 10/16/2017 12:29 PM CDT Pulse 75 10/16/2017 12:29 PM CDT Temperature 36.4 C (97.5 F) 09/05/2017 3:30 PM CDT Respiratory Rate - - Oxygen Saturation 98% 09/05/2017 3:30 PM CDT Inhaled Oxygen - - Concentration Weight 94.8 kg (209 lb) 10/16/2017 12:29 PM CDT Height 172.7 cm (5' 8") 10/16/2017 12:29 PM CDT Body Mass Index 31.78 10/16/2017 12:29 PM CDT Plan of Treatment Health Maintenance Due [...] RECONSTRUCTION from Last 3 Months Results * GRAM STAIN (10/16/2017 1:30 PM) Component Value Ref Range Battery Name GRAM STAIN Specimen Description SWAB POSTERIOR TO EAR Special Requests NONE Gram Stain RARE NEUTROPHILS MODERATE GRAM POSITIVE COCCI RARE GRAM NEGATIVE RODS Report Status FINAL 10/16/2017 Specimen Performing Laboratory Swab MAIN LAB [address] [place] [address] * CULTURE-WOUND/TISSUE/FLUID(AEROBIC ONLY)W/SENSITIVITY (10/16/2017 1:30 PM) Component [...] Specimen Performing Laboratory Swab MAIN LAB [address] [place] [address] Organism Antibiotic Method Susceptibility Light growth klebsiella [...] INTERPRETATION Susceptible Heavy growth Trimethsulfa VANE (MCG/ML) <=19 SUSCEPTIBLE: staphylococcus aureus INTERPRETATION Susceptible Heavy growth Method VANE (MCG/ML) VANE (MCG/ML) staphylococcus aureus INTERPRETATION INTERPRETATION * ECG-SCAN (09/09/2017 1:31 PM) Narrative Ordered by an unspecified provider. * ECG-SCAN (09/09/2017 1:25 PM) Narrative Ordered by an unspecified provider. * POC GLUCOSE (09/05/2017 2:26 PM) Only the most recent of 2 results within the time period is included. Component Value Ref Range Glucose, POC 168 (H) 70 - 100 MG/DL Specimen Performing Laboratory MAIN LAB [address] [place] [address] * SURGICAL PATHOLOGY (09/05/2017 12:16 PM) Only the most recent of 2 results within the time period is included. Component Value Ref Range PATHOLOGY REPORT [facility] [email or web address] Department of Pathology and Laboratory Medicine [address] [place] [address] Surgical Pathology Office:[phone]:[phone] SURGICAL PATHOLOGY REPORT NAME: DEEJAY CAR RAY SURG PATH #: [id number] MR #: [id number] SPECIMEN CLASS: [facility] BILLING #: [id number] ALT ID #:LOCATION: [id number] DATE OF PROCEDURE: [...] submitted from superior to inferior as follows: E4Cbwmbijoiblbs sections of superior margin. E2-P3Salsactv between superior and inferior margin. S1Xvrgwxyflxcud sections of inferior margin. (sld) 09/05/2017 Intraoperative Consultation: A1FS, skin, "skin margin 12:00 to 3:00", biopsy: Negative for malignancy. B1FS, skin, "skin margin 3:00 to 6:00", biopsy: Negative for malignancy. C1FS, skin, "skin margin 6:00 to 9:00", biopsy: Negative for malignancy. D1FS, skin, "skin margin 9:00 to 12:00", biopsy: Negative for malignancy. Frozen section performed at the [facility], [facility] A, [address] [place] [address]. Specimen Performing Laboratory [facility] RESULTS * [...] - 11 FL Specimen Performing Laboratory Blood MAIN LAB [address] [place] [address] * COMPREHENSIVE METABOLIC PANEL (08/23/2017 9:54 AM) [...] Pharmacist for questions. Specimen Performing Laboratory Blood MAIN LAB [address] [place] [address] * CT NECK W/CONTRAST (08/23/2017 7:52 AM) [...] - 1.24 MG/DL Specimen Performing Laboratory MAIN LAB [address] [place] [address] from Last 3 Months
--- OUTSIDE RECORDS SUMMARY | 2017-10-19 12:36 | XMS REPORT | Encounter Summary ---
Author Author [facility] Organization [facility] Address Unknown Phone Unavailable Care Team Providers Care Geotechnician Name Role Phone Laura Aragon MD PCP Encounter Details Date Type Department Care Team Description 09/05/2017 Procedure Pass [place] Operating Room [address] [place] [address] Social History Tobacco Use Types Packs/Day [...]
--- OUTSIDE RECORDS SUMMARY | 2017-10-19 12:36 | XMS REPORT | Encounter Summary ---
Author Author [facility] Organization [facility] Address Unknown Phone Unavailable Care Team Providers Care Fire Pilot Name Role Phone Laura Aragon MD PCP Reason for Visit * Auth/Cert Status Reason Specialty Diagnoses / Referred By Referred To Procedures Contact Contact Diagnoses Mass of left ear Mass of left ear [H93.8X2] P rocedures ME EXCISION EXTERNAL EAR PARTIAL SIMPLE REPAIR ME ADJT TIS TRNS/REARGMT F/C/C/M/N/A/G/H/ F 10SQCM/< ME SPLIT AGRFT F/S/N/H/F/G/M/D GT 1ST 100 CM/</1 % EXCISION BONE EXTERNAL EAR CANAL ADJACENT TISSUE TRANSFER PEDICLE FLAP DEFECT 10 SQ CM OR LESS - AXILLA GRAFT SKIN SPLIT THICKNESS HEAD/NECK Encounter Details Date Type Department Care Team Description 09/05/2017 Anesthesia [place] Operating Room [facility], [facility] Event [address] [place] [address] Anesthesia Record Procedure Name Responsible Anesthesia Start [...] Yes Hypertension, No valvular problems/murmurs No past RI, Coronary artery disease No coronary artery bypass [...]
--- OUTSIDE RECORDS SUMMARY | 2017-10-19 12:36 | XMS REPORT | Encounter Summary ---
Author Author [facility] Organization [facility] Address Unknown Phone Unavailable Care Team Providers Care Security Technician Name Role Phone Laura Aragon MD PCP Reason for Visit * Reason Comments Cancer Surveillance Encounter Details Date Type Department Care Team Description 10/16/2017 Office Visit [facility] Rosa España, Cancer of the skin, basal Physicians - ENT RADHA cell (Primary Dx) 3RD FLOOR POD C [address] [place] [address] OFFICE BLDG [phone] [place] [address] Social History Tobacco Use Types [...] Pulse 75 10/16/2017 12:29 PM CDT Temperature - - Respiratory Rate - - Oxygen Saturation - - Inhaled Oxygen - - Concentration Weight 94.8 kg (209 lb) 10/16/2017 12:29 PM CDT Height 172.7 cm (5' 8") 10/16/2017 12:29 PM CDT Body Mass Index 31.78 10/16/2017 12:29 PM CDT in this encounter Progress Notes * Rosa España PA-C - 10/16/2017 1:30 PM CDT Formatting of this note may be different from the original. Date of Service: 10/16/2017 Subjective: Deejay Car is a 72 y.o. male. History of Present Illness Deejay Car is s/p excision external ear with adjacent tissue transfer or rearrangement on 09/05/[address] Stone for BCCa. Pt is doing well. He missed his appt at the beginning of October due to a hospital admission for HTN and A fib, closer to home. The pt continues to apply vaseline to the surgical site. He has noticed a slt odor from the area and is worried that it is infected. The patient is showering daily and using dial soap on his surgical site. The patient has no complaints. The pathology revealed: Final Diagnosis: A-D Surgical margins for frozen section diagnosis: -- Negative for carcinoma E. left ear, posterior auriculectomy: -- Nodular basal cell carcinoma, margins negative Review of Systems Constitutional: Negative. HENT: Negative. Eyes: Negative. Respiratory: Negative. Cardiovascular: Negative. Gastrointestinal: Negative. Endocrine: Negative. Genitourinary: Negative. Musculoskeletal: Negative. Skin: Negative. Allergic/Immunologic: Negative. Neurological: Negative. Hematological: Negative. Psychiatric/Behavioral: Negative. Objective: acetaminophen (TYLENOL) 500 mg tablet Take 500 [...] tablet Take 10 mg by mouth daily. bacitracin 500 unit/g topical ointment Apply topically to affected area daily. Please give tube from OR to patient. cetirizine (ZYRTEC) 10 mg tablet Take 10 mg by mouth every morning. clopiDOGrel (PLAVIX) 75 mg tablet Take 75 mg by mouth daily. docusate (COLACE) 100 mg capsule Take 1 capsule by mouth twice daily. Use while taking [place] pain medication donepezil (ARICEPT) 5 mg tablet Take 5 mg by mouth at bedtime daily. doxazosin (CARDURA) 4 mg tablet Take 4 mg by mouth daily. escitalopram oxalate (LEXAPRO) 5 mg tablet Take 5 mg by mouth daily. finasteride (PROSCAR) 5 mg tablet Take 5 mg by mouth daily. fluorouracil (EFUDEX) 5 % topical cream Apply topically to affected area twice daily. HYDROcodone/acetaminophen (NORCO) 5/325 mg tablet Take 1 tablet by mouth every 4 hours as needed for Pain lisinopril-hydrochlorothiazide (PRINZIDE, ZESTORETIC) 20-12.5 mg tablet Take 2 tablets by mouth every morning. metFORMIN (GLUCOPHAGE) 1,000 mg tablet Take 1,000 mg by mouth twice daily with meals. metoprolol tartrate (LOPRESSOR) 25 mg tablet Take 1 tablet by mouth twice daily. Vitals: 10/16/17 1229 BP: 130/68 Pulse: 75 Weight: 94.8 kg (209 lb) Height: 172.7 cm (68") Body mass index is 31.78 kg/m. Physical Exam All incisions are clean and dry without signs of infection, dehiscence, discharge or poor healing. There are no fluid collections or fluctuant areas. There is no mass or adenopathy appreciated. 1.5 x 1.0 cm eschar posterior to the patient's left ear. Debrided gently today during which there was some purulence that was noted and cultured. Small amount of granulation tissue cauterized today as well. Assessment and Plan: Deejay is recovering well from excision external ear with adjacent tissue transfer or rearrangement on 09/05/[address] Stone. Deejay should continue their local wound care including good hygiene and vaseline application 2+ times a day. The pathology is consistent with nodular BCC with clear margins. Prescribed bactrim DS 1 tab po BID x 10 days for infection. Patient will be contacted only if C&S shows resistance to bactrim. F/U: 2 weeks, sooner on a prn basis in this encounter Miscellaneous Notes * Addendum Note - Rosa España PA-C - 10/16/2017 1:30 PM CDT Addended by: ROSA ESPAÑA on: 10/16/2017 01:10 PM Modules accepted: Orders in this encounter Plan of Treatment Not on fileas of this encounter Results * CULTURE-WOUND/TISSUE/FLUID(AEROBIC ONLY)W/SENSITIVITY (10/16/2017 1:30 PM) Component [...] Specimen Performing Laboratory Swab MAIN LAB [address] [place] [address] Organism Antibiotic Method Susceptibility Light growth klebsiella [...] Diagnosis Cancer of the skin, basal cell - Primary Basal cell carcinoma of skin, site unspecified
--- OUTSIDE RECORDS SUMMARY | 2017-10-19 12:36 | XMS REPORT | Encounter Summary ---
Author Author [facility] Organization [facility] Address Unknown Phone Unavailable Care Team Providers Care Civil Engineering Project Manager Name Role Phone Laura Aragon MD PCP Reason for Visit * Reason Comments Post Operative Visit s/p excision external ear with adjacent tissue transfer or rearrangement on 09/05/[address] Stone Encounter Details Date Type Department Care Team Description 09/13/2017 Office Visit [facility] Julio C Batista PA-C Cancer of the skin, basal Physicians - ENT [address] cell 3RD FLOOR POD C [place] [address] [place] [address] OFFICE BLDG [phone] [place] [address] Social History Tobacco Use Types [...]
--- OUTSIDE RECORDS SUMMARY | 2017-10-19 12:37 | XMS REPORT | Encounter Summary ---
Author Author [facility] Organization [facility] Address Unknown Phone Unavailable Care Team Providers Care Elementary Spanish Teacher Name Role Phone Laura Aragon MD PCP Encounter Details Date Type Department Care Team Description 08/23/2017 PAC Office Preoperative Assessment Alvino Stone MD Preoperative Visit Clinic [address] [facility] cardiovascular [address] [place] [address] examination (Primary Dx); [place] [address] History of atrial [phone] fibrillation; Mass of left ear; Mass of [...] and any other valuables at home. The [facility] is not responsible for the loss or breakage of personal items. Remove nail scottish, makeup and all jewelry (including piercings) before coming to the hospital. The morning of your procedure: brush your teeth and tongue do not smoke do not shave the area where you will have surgery What to bring to the hospital ID/ Insurance Card Green Promotions Specialist card Official documents for legal guardianship Copy of your Living Will, Advanced Directives, and/or Durable Power of Comb Fixer Small bag with a few personal belongings [...] to cancel your procedure Notify us at [facility]: if you need to cancel your procedure if you are going to be late Arrival at the [facility] A: ? Park in the P5 parking garage located at [address] [place] [address] (Next to the [facility] A [address] [place] [address]). ? Call Center Support Consultant parking is available in front of [facility] between the hours of 7:00 am and 4:00 pm Saturday through Saturday. ? If parking in the P5 garage, take the east elevators in the parking garage to the second level and walk to the entrance of the [facility]. ? Enter through the 1st floor [...] your arrival time. Before 4:30 pm, call [phone], and after 4:30 pm, call [phone]. * Pre-Anesthesia Medication Instructions - Dylan Lucia, [...] with any medicine updates or questions. E-mail: [email or web address] Before going home from the [...] Performing Laboratory Blood [facility] MAIN LAB [address] [place] [address] * CBC (08/23/2017 9:54 AM) Component Value [...] Performing Laboratory Blood [facility] MAIN LAB [address] [place] [address] in this encounter Visit Diagnoses Diagnosis Preoperative cardiovascular examination - Primary Pre-operative cardiovascular examination History of atrial fibrillation Personal history of other diseases of circulatory system Mass of left ear Mass of ear auricle, unspecified laterality
--- OUTSIDE RECORDS SUMMARY | 2017-10-19 12:37 | XMS REPORT | Encounter Summary ---
Author Author [facility] Organization [facility] Address Unknown Phone Unavailable Care Team Providers Care Investment Analyst Name Role Phone aLura Aragon MD PCP Reason for Referral * Radiology Services (Routine) Status Reason Specialty Diagnoses / Referred By Referred To Procedures Contact Contact Closed Radiology Diagnoses Alvino Stone Mob Ct Mass of left ear MD [address] [facility] OFFICE [address]ECK [place], [place] W/CONTRAST [phone] Phone: Fax: * Radiology Services (Routine) Status Reason Specialty Diagnoses / Referred By Referred To Procedures Contact Contact Closed Radiology Diagnoses Alvino Stone Mob Ct Mass of left ear MD [address] [facility] OFFICE [address]ECK [place], [place]AST [phone] Phone: Fax: Reason for Visit * Radiology Services (Routine) Status Reason Specialty Diagnoses / Referred By Referred To Procedures Contact Contact Closed Radiology Diagnoses Alvino Stone Mob Ct Mass of left ear MD [address] [facility] OFFICE [address]ECK [place], [place] W/CONTRAST [phone] Phone: Fax: Encounter Details Date Type Department Care Team Description 08/23/2017 Hospital [facility] Alvino Stone MD Encounter Hospital Radiology [address] [place] [address] OFFICE BLDG [phone] [address] [place] [address] Social History Tobacco Use Types [...] 2017 capsule twice daily. Use while taking [place] pain medication donepezil (ARICEPT) 5 mg Take [...] Specimen Performing Laboratory [facility] [address] [place] [address] in this encounter Visit Diagnoses Diagnosis Mass [...]
--- OUTSIDE RECORDS SUMMARY | 2017-10-19 12:37 | XMS REPORT | Encounter Summary ---
Author Author [facility] Organization [facility] Address Unknown Phone Unavailable Care Team Providers Care Agitator Operator Name Role Phone Laura Aragon MD PCP Reason for Visit * Reason Comments Surgery Encounter Details Date Type Department Care Team Description 08/22/2017 Telephone [facility] Alvino Stone MD [facility] - ENT [address] [place] [address] MED [phone] [place] [address] Social History Tobacco Use Types [...]
--- OUTSIDE RECORDS SUMMARY | 2017-10-19 12:37 | XMS REPORT | Encounter Summary ---
Author Author [facility] Organization [facility] Address Unknown Phone Unavailable Care Team Providers Care Mattress Renovator Name Role Phone Laura Aragon MD PCP Reason for Visit * Auth/Cert Status Reason Specialty Diagnoses / Referred By Referred To Procedures Contact Contact Diagnoses Mass of left ear Mass of left ear [H93.8X2] P rocedures MT EXCISION EXTERNAL EAR PARTIAL SIMPLE REPAIR MT ADJT TIS TRNS/REARGMT F/C/C/M/N/A/G/H/ F 10SQCM/< MT SPLIT AGRFT F/S/N/H/F/G/M/D GT 1ST 100 CM/</1 % EXCISION BONE EXTERNAL EAR CANAL ADJACENT TISSUE TRANSFER PEDICLE FLAP DEFECT 10 SQ CM OR LESS - AXILLA GRAFT SKIN SPLIT THICKNESS HEAD/NECK Encounter Details Date Type Department Care Team Description 09/05/2017 [facility] Alvino Stone MD Mass of left ear Encounter [address] [facility] [address] [place] [address] [place] [address] [phone] Social History Tobacco Use Types Packs/Day Years [...] 2017 capsule twice daily. Use while taking [place] pain medication donepezil (ARICEPT) 5 mg Take [...] hours): POC Glucose (Download): (!) 204 (09/05/17 4384) I have examined the patient, and there [...] Otol[facility]ology[facility]Head [facility] Ne[facility] Surgery [facility] at the [facility]. The patient was referred by Dr. Aragon for evaluation of posterior ear mass on the left. He states that he has had this mass for approximately 3-4 years. His primary care doctor has referred for evaluation by rack worker for this as well as multiple skin lesions on the face and trunk. He has not been able to see dermatology yet. He states that the mass behind his left ear is tender to the touch, and it bleeds occasionally when rubbed. He appears to have several lesions on the face and trunk concerning for skin cancers. 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 He quit smoking [...] OF POSTERIOR LEFT EAR LESION Surgeon: Chase Collar Trimmer: Raúl In detail: Consent was obtained and [...] September 05, 2017 Surgeon: Alvino Stone MD Collar Trimmer: Brenda Hernández MD Indications: Deejay Car is a 72 y.o. 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 He presents for surgical excision and reconstruction. Procedures: 01956 - Excision external ear; partial 62654 - Adjacent tissue transfer or rearrangement, any [...] were anesthetized with 1% lidocaine with epinephrine 1:885929 41881 - Excision external ear; partial The left [...] and attention was turned to the reconstruction. 48795 - Adjacent tissue transfer or rearrangement, any [...] 100 MG/DL Specimen Performing Laboratory MAIN LAB [address] [place] [address] * SURGICAL PATHOLOGY (09/05/2017 12:16 PM) Component Value Ref Range PATHOLOGY REPORT [facility] [email or web address] Department of Pathology and Laboratory Medicine [address] [place] [address] Surgical Pathology Office:[phone]:[phone] SURGICAL PATHOLOGY REPORT NAME: DEEJAY CAR RAY SURG PATH #: [id number] MR #: [id number] SPECIMEN CLASS: SCA BILLING #: [id number] ALT ID #:LOCATION: [facility] DATE OF PROCEDURE: 09/05/2017 AGE:72 SEX: M [...] submitted from superior to inferior as follows: N8Uowldzmlipmrd sections of superior margin. E2-J3Kwelqzis between superior and inferior margin. M2Dakhipzexogxa sections of inferior margin. (sld) 09/05/2017 Intraoperative Consultation: A1FS, skin, "skin margin 12:00 to 3:00", biopsy: Negative for malignancy. B1FS, skin, "skin margin 3:00 to 6:00", biopsy: Negative for malignancy. C1FS, skin, "skin margin 6:00 to 9:00", biopsy: Negative for malignancy. D1FS, skin, "skin margin 9:00 to 12:00", biopsy: Negative for malignancy. Frozen section performed at the [facility], [address] [place] [address]. Specimen Performing Laboratory LAB RESULTS * POC GLUCOSE (09/05/2017 9:13 AM) Component Value Ref Range Glucose, POC 204 (H) 70 - 100 MG/DL Specimen Performing Laboratory MAIN LAB [address] [place] [address] in this encounter Visit Diagnoses Diagnosis Ear [...]
--- OUTSIDE RECORDS SUMMARY | 2017-10-19 12:37 | XMS REPORT | Encounter Summary ---
Author Author [facility] Organization [facility] Address Unknown Phone Unavailable Care Team Providers Care Media Marketing Manager Name Role Phone Laura Aragon MD PCP Reason for Referral * Radiology Services (Routine) Status Reason Specialty Diagnoses / Referred By Referred To Procedures Contact Contact Closed Radiology Diagnoses Alvino Stone Mob Ct Mass of left ear [address] [place]ECK [place], [place] W/CONTRAST [phone] Phone: Fax: Reason for Visit * Reason Comments Mass Growth next to the ear * Consult, Test & Treat (Routine) Status Reason Specialty Diagnoses / Referred By Referred To Procedures Contact Contact No Auth Needed Otolaryngology Procedures Alvino Stone MD NEW PATIENT [address] [place] [address] Encounter Details Date Type Department Care Team Description 08/12/2017 Office Visit [facility] Alvino Stone MD Mass of left ear ([facility] - ENT [address] Dx); 3RD [place] [address] Ear mass, left; [address] [phone] [place]tico[place] [phone] Social History Tobacco Use Types Packs/Day Years [...] aspirin without seeking the Approval of your Pi/Senior Research Associate. ? Refrain from smoking two weeks before [...] calling . Your surgery is scheduled at [facility]. Park in the parking garage off of [facility]. Enter the [facility] through the 1st floor main entrance. Check in with admitting on 1st floor. Please park on the [place] of the Building in the [place]. Once you enter the building, you [...] any facial or eye make-up. Avoid nail nepalese. ? You may wear glasses but do not wear contact lenses. ? If you wear dentures, keep them in. ? Bring ID and insurance card with you. DONT TAKE CHANCES! If you are concerned about anything you consider significant, call us at [phone] business hours, ask for your nurse , Minal, or the on-call nurse. After hours ask to speak to the ENT doctor plant taxonomist. in this encounter Progress Notes * Alvino Stone MD - 08/12/2017 9:00 AM CDT Formatting of this note may be different from the original. Chief Complaint Patient presents with Mass Growth next to the ear History of Present Illness: Deejay Car is a 72 y.o. year old male evaluated on 08/12/2017, in the Otolaryngology-Head and Neck Surgery Clinic at the [facility]. The patient was referred by Dr. Aragon for evaluation of posterior ear mass on the left. He states that he has had this mass for approximately 3-4 years. His primary care doctor has referred for evaluation by advisor consultant for this as well as multiple skin lesions on the face and trunk. He has not been able to see dermatology yet. He states that the mass behind his left ear is tender to the touch, and it bleeds occasionally when rubbed. He appears to have several lesions on the face and trunk concerning for skin cancers. 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 He quit smoking [...] OF POSTERIOR LEFT EAR LESION Surgeon: Chase Diplomatic Officer: Raúl In detail: Consent was obtained and [...]
--- OUTSIDE RECORDS SUMMARY | 2017-10-19 12:37 | XMS REPORT | Encounter Summary ---
Author Author [facility] Organization [facility] Address Unknown Phone Unavailable Care Team Providers Care Ballpoint Pens Assembler Name Role Phone Laura Aragon MD PCP Encounter Details Date Type Department Care Team Description 08/12/2017 Procedure Pass [facility] Radiology [address] OFF[address]ND [place] [address] Social History Tobacco Use Types [...]
--- OUTSIDE RECORDS SUMMARY | 2017-10-19 12:37 | XMS REPORT | Encounter Summary ---
Author Author [facility] Organization [facility] Address Unknown Phone Unavailable Care Team Providers Care Chemical Manager Name Role Phone Laura Aragon MD PCP Encounter Details Date Type Department Care Team Description 08/12/2017 [facility] MD Other specified disorders Encounter [address] [place] [address] [place] [address] [phone] Social History Tobacco Use Types Packs/Day Years [...] 2017 capsule twice daily. Use while taking [place] pain medication donepezil (ARICEPT) 5 mg Take [...] Component Value Ref Range PATHOLOGY REPORT [facility] [email or web address] Department of Pathology and Laboratory Medicine [address] [place] [address] Surgical Pathology Office:[phone]:[phone] SURGICAL PATHOLOGY REPORT NAME: DEEJAY CAR SURG PATH #: [id number] MR #: [id number] SPECIMEN CLASS: SR BILLING #: [id number] ALT ID #:LOCATION: ENT DATE OF PROCEDURE: [...]
--- OUTSIDE RECORDS SUMMARY | 2017-10-19 12:37 | XMS REPORT | Encounter Summary ---
Author Author [facility] Organization [facility] Address Unknown Phone Unavailable Care Team Providers Care Casualty Underwriter Name Role Phone PCP Unavailable Reason for Visit * Reason Comments Navigation Assessment Encounter Details Date Type Department Care Team Description 08/09/2017 Telephone [facility] Alvion Stone MD Navigation Assessment [facility] [address] [place] [address] [place] [address] [phone] Social History Tobacco Use Types Packs/Day Years [...] Laura Aragon Contact Name & Number: Maki [phone] Corporate Strategist: Thomas Fung in [place], [place] [phone], last seen 03/2017 Location of Films: none [...] "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 (requested last OV note from cardiololgy) Prior Treatment (XRT, Surgery, Chemotherapy): none Comments: Pt is , states is pt with urology. 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 in this encounter Plan of Treatment Not on fileas of this encounter Visit Diagnoses Not on filein this encounter
--- OUTSIDE RECORDS SUMMARY | 2017-10-19 12:37 | XMS REPORT | Encounter Summary ---
Author Author [facility] Organization [facility] Address Unknown Phone Unavailable Care Team Providers Care Diet Kitchen Cook Name Role Phone Laura Aragon MD PCP Encounter Details Date Type Department Care Team Description 08/12/2017 [facility] Alvino Stone MD Mass of left ear (Primary Physicians - ENT [address] Dx) 3RD [place] [address] MED [phone] [place] [address] Social History Tobacco Use Types [...]
--- OUTSIDE RECORDS SUMMARY | 2017-10-19 12:40 | XMS REPORT | Continuity of Care Document ---
Author Author [facility] Organization [facility] Address Unknown Phone Unavailable Allergies Active Description [...] CECILIA ELY, SAVANNAH Sinclair Ot V72.81 07/31/2014 CECILIA ELY, SAVANNAH Sinclair Ot V74.8 08/04/2014 CECILIA [...] Ot V67.9 FOLLOW-UP EXAM NOS 09/01/2014 SKYLAR CAMPSO MD Ot 250.00 DIAB JOSE WO COMPL, TYPE II OR UNSPEC TY 09/01/2014 SKYLAR CAMPOS MD Ot 272.4 HYPERLIPIDEMIA NEC/NOS 09/01/2014 SKYLAR CAMPOS MD Ot 401.9 HYPERTENSION NOS 09/01/2014 SKYLAR CAMPOS MD Ot 414.01 CORONARY ATHEROSCLEROSIS OF [place] CORON 09/01/2014 SKYLAR CAMPOS MD Ot 427.31 [...] BETH ELY, SKYLAR J Ot 250.00 09/16/2014 BTEH ELY, SKYLAR J Ot 401.9 09/16/2014 BETH [...] LAURA S Ot 250.00 09/16/2014 ORENDER DO, ALURA S Ot 780.79 09/16/2014 CECILIA ELY, SAVANNAH [...] SKYLAR Narvaez Ot 530.81 10/22/2014 BETH ELY, KSYLAR Narvaez Ot 250.00 10/22/2014 BETH ELY, SKYLAR [...] MARÍA SALAMANCA K Ot R07.89 09/12/2015 ANTHONY RAMESH DOQUELINE S Ot B34.9 VIRAL INFECTION, UNSPECIFIED 09/12/2015 SHIRANDER ANTHONY WINTERSLAURA S Ot E11.9 TYPE 2 DIABETES MELLITUS WITHOUT COMPLIC 09/12/2015 SHIRANDER ANTHONY WINTERSLAURA S Ot E78.5 HYPERLIPIDEMIA, UNSPECIFIED 09/12/2015 SHIRANDER DO LAUAR S Ot I11.0 HYPERTENSIVE HEART DISEASE WITH HEART FA 09/12/2015 SHIRANDER DO LAURA S Ot I25.10 ATHSCL HEART DISEASE OF [place] CORONARY 09/12/2015 SHIRANDOPAL WINTERS LAURA S Ot [...] S Ot E78.5 HYPERLIPIDEMIA, UNSPECIFIED 09/12/2015 SHIRANDER MAUYR WINTERSLINE S Ot I11.0 HYPERTENSIVE HEART DISEASE WITH HEART FA 09/12/2015 SHIRANDER , LAURA S Ot I25.10 ATHSCL HEART DISEASE OF [place] CORONARY 09/12/2015 SHIRANDER , LAURA S Ot [...] MELLITUS WITH HYPERGLYCE 01/17/2016 JUAN DIEGO SOTELO SENIOR ENERGY MARKET COORDINATOR Ot E11.9 TYPE 2 DIABETES MELLITUS WITHOUT COMPLIC 01/17/2016 JUAN DIEGO SOTELO SENIOR ENERGY MARKET COORDINATOR Ot I10 ESSENTIAL (PRIMARY) HYPERTENSION 01/17/2016 JUAN DIEGO SOTELO Cora SENIOR ENERGY MARKET COORDINATOR Ot I25.10 ATHSCL HEART DISEASE OF [place] CORONARY 01/17/2016 JUAN DIEGO SOTELO Cora SENIOR ENERGY MARKET COORDINATOR Ot Z12.5 ENCOUNTER FOR SCREENING FOR MALIGNANT [...] 05/08/2016 CECILIA ELY, SAVANNAH Sinclair Ot V72.81 [id number] CARDIOVASCULAR 05/08/2016 CECILIA ELY, SAVANNAH Sinclair Ot [...] 530.81 ESOPHAGEAL REFLUX 05/08/2016 SKYLAR CAMPOS MD J Ot 250.00 DIAB JOES WO COMPL, TYPE II OR UNSPEC TY 05/08/2016 BETH ELY, SKYLAR Narvaez Ot 401.9 HYPERTENSION NOS 05/08/2016 BETH ELY, SKYLAR Narvaez Ot 427.31 ATRIAL FIBRILLATION 05/08/2016 SKYLAR CAMPOS MD Ot 530.81 ESOPHAGEAL REFLUX 05/08/2016 ANTHONY RAMESH DOQUELINE S Ot 250.00 DIAB JOSE WO COMPL, TYPE II OR UNSPEC TY 05/08/2016 SHIRANDER DO LAURA S Ot 274.9 GOUT NOS 05/08/2016 ANTHONY RAMESH DOQUELINE S Ot E11.9 TYPE 2 DIABETES MELLITUS WITHOUT COMPLIC 05/08/2016 ANTHONY RAMESH DOQUELINE S Ot I25.10 ATHSCL HEART DISEASE OF [place] CORONARY 05/08/2016 LAURA RAMESH DO S Ot R53.83 OTHER FATIGUE 05/08/2016 MARÍA SALAMANCA Ot I10 ESSENTIAL (PRIMARY) HYPERTENSION 05/08/2016 MARÍA SALAMANCA Ot I25.10 ATHSCL HEART DISEASE OF [place] CORONARY 05/08/2016 MARÍA SALAMANCA Ot I48.2 CHRONIC ATRIAL FIBRILLATION 05/08/2016 MARÍA SALAMANCA Ot R07.89 OTHER CHEST PAIN 05/08/2016 MARÍA SALAMANCA Ot I10 ESSENTIAL (PRIMARY) HYPERTENSION 05/08/2016 MARÍA SALAMANCA Ot I25.10 ATHSCL HEART DISEASE OF [place] CORONARY 05/08/2016 MARÍA SALAMANCA Ot I48.2 CHRONIC ATRIAL FIBRILLATION 05/08/2016 MARÍA SALAMANCA Ot R07.89 OTHER CHEST PAIN 05/08/2016 Ot E11.65 TYPE 2 DIABETES MELLITUS WITH HYPERGLYCE 05/08/2016 JUAN DIEGO SOTELO SENIOR ENERGY MARKET COORDINATOR Ot E11.9 TYPE 2 DIABETES MELLITUS WITHOUT COMPLIC 05/08/2016 JUAN DIEGO SOTELO APRN Ot I10 ESSENTIAL (PRIMARY) HYPERTENSION 05/08/2016 JUAN DIEGO SOTELO APRN Ot I25.10 ATHSCL HEART DISEASE OF [place] CORONARY 05/08/2016 JUAN DIEGO SOTELO APRN Ot Z12.5 ENCOUNTER FOR SCREENING FOR MALIGNANT NE 05/09/2016 SKYLAR CAMPOS MD Ot E11.9 TYPE 2 DIABETES MELLITUS WITHOUT COMPLIC 05/09/2016 SKYLAR CAMPOS MD Ot I10 ESSENTIAL (PRIMARY) HYPERTENSION 05/09/2016 SKYLAR CAMPOS MD Ot I25.10 ATHSCL HEART DISEASE OF [place] CORONARY 05/09/2016 SKYLAR CAMPOS MD Ot I48.2 CHRONIC ATRIAL FIBRILLATION 05/09/2016 SKYLAR CAMPOS MD Ot K21.9 GASTRO-ESOPHAGEAL REFLUX DISEASE WITHOUT 05/09/2016 SKYLAR CAMPOS MD Ot R07.89 OTHER CHEST PAIN 05/09/2016 SKYLAR CAMPOS MD Ot Z79.01 INTERMEDIATE (CURRENT) USE OF ANTICOAGULANT 05/09/2016 SKYLAR CAMPOS MD Ot Z79.899 OTHER OYSTER WORKER (CURRENT) DRUG THERAPY 05/09/2016 SKYLAR CAMPOS MD Ot Z95.5 PRESENCE OF CORONARY ANGIOPLASTY IMPLANT 06/07/2016 SKYLAR CAMPOS MD Ot E11.9 TYPE 2 DIABETES MELLITUS WITHOUT COMPLIC 06/07/2016 SKYLAR CAMPOS MD Ot I10 ESSENTIAL (PRIMARY) HYPERTENSION 06/07/2016 SKYLAR CAMPOS MD Ot I25.10 ATHSCL HEART DISEASE OF [place] CORONARY 06/07/2016 SKYLAR CAMPOS MD Ot I48.2 CHRONIC ATRIAL FIBRILLATION 06/07/2016 SKYLAR CAMPOS MD Ot K21.9 GASTRO-ESOPHAGEAL REFLUX DISEASE WITHOUT 06/07/2016 SKYLAR CAMPOS MD Ot R07.89 OTHER CHEST PAIN 06/07/2016 SKYLAR CAMPOS MD Ot Z79.01 INTERMEDIATE (CURRENT) USE OF ANTICOAGULANT 06/07/2016 SKYLAR CAMPOS MD Ot Z79.899 OTHER OYSTER WORKER (CURRENT) DRUG THERAPY 06/07/2016 SKYLAR CAMPOS MD Ot Z95.5 PRESENCE OF CORONARY ANGIOPLASTY IMPLANT 06/12/2016 Ot 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 06/12/2016 Ot 722.52 LUMB/ LUMBOSAC DISC DEGEN 06/12/2016 Ot 722.52 LUMB/ LUMBOSAC DISC DEGEN 06/12/2016 LAURA RAMESH DO Ot 250.00 DIAB JOSE WO COMPL, TYPE II OR UNSPEC TY 06/12/2016 LAURA RAMESH DO Ot 274.9 GOUT NOS 06/12/2016 ORENDER [...] 06/12/2016 CECILIA ELY, SAVANNAH Sinclair Ot V72.81 [id number] CARDIOVASCULAR 06/12/2016 CECILIA ELY, SAVANNAH Sinclair Ot V74.8 SCREEN-BACTERIAL DIS NEC 06/12/2016 SKYLAR CAMPOS MD Ot 250.00 DIAB JOSE WO COMPL, TYPE II OR UNSPEC TY 06/12/2016 SKYLAR CAMPOS MD Ot 401.9 HYPERTENSION NOS 06/12/2016 SKYLAR CAMPOS MD J Ot 427.31 ATRIAL FIBRILLATION 06/12/2016 SKYLAR CAMPOS MD J Ot 530.81 ESOPHAGEAL REFLUX 06/12/2016 SKYLAR CMAPOS MD J Ot 250.00 DIAB JOSE WO [...] TYPE II OR UNSPEC TY 06/12/2016 ANTHONY RAMESH DOQUELINE S Ot 274.9 GOUT NOS 06/12/2016 DOMITILA WINTERS, LAURA S Ot E11.9 TYPE 2 DIABETES MELLITUS WITHOUT COMPLIC 06/12/2016 ANTHONY RAMESH DOQUELINE S Ot I25.10 ATHSCL HEART DISEASE OF [place] CORONARY 06/12/2016 ANTHONY RAMESH DOQUELINE S Ot R53.83 OTHER FATIGUE 06/12/2016 MARÍA SALAMANCA Ot I10 ESSENTIAL (PRIMARY) HYPERTENSION 06/12/2016 MARÍA SALAMANCA Ot I25.10 ATHSCL HEART DISEASE OF [place] CORONARY 06/12/2016 MARÍA SALAMANCA Ot I48.2 CHRONIC ATRIAL FIBRILLATION 06/12/2016 MARÍA SALAMANCA Ot R07.89 OTHER CHEST PAIN 06/12/2016 MARÍA SALAMANCA Ot I10 ESSENTIAL (PRIMARY) HYPERTENSION 06/12/2016 MARÍA SALAMANCA Ot I25.10 ATHSCL HEART DISEASE OF [place] CORONARY 06/12/2016 MARÍA SALAMANCA Ot I48.2 CHRONIC ATRIAL FIBRILLATION 06/12/2016 MARÍA SALAMANAC Ot R07.89 OTHER CHEST PAIN 06/12/2016 Ot E11.65 TYPE 2 DIABETES MELLITUS WITH HYPERGLYCE 06/12/2016 JUAN DIEGO SOTELO SENIOR ENERGY MARKET COORDINATOR Ot E11.9 TYPE 2 DIABETES MELLITUS WITHOUT COMPLIC 06/12/2016 JUAN DIEGO SOTELO SENIOR ENERGY MARKET COORDINATOR Ot I10 ESSENTIAL (PRIMARY) HYPERTENSION 06/12/2016 JUAN DIEGO SOTELO APRN Ot I25.10 ATHSCL HEART DISEASE OF [place] CORONARY 06/12/2016 JUAN DIEGO SOTELO APRN Ot [...] 08/29/2016 CECILIA ELY, SAVANNAH Sinclair Ot V72.81 [id number] CARDIOVASCULAR 08/29/2016 CECILIA ELY, SAVANNAH Sinclair Ot [...] S Ot I25.10 ATHSCL HEART DISEASE OF [place] CORONARY 08/29/2016 ANTHONY RAMESH DOQUELINE S Ot R53.83 OTHER FATIGUE 08/29/2016 MARÍA SALAMANCA Ot I10 ESSENTIAL (PRIMARY) HYPERTENSION 08/29/2016 MARÍA SALAMANCA Ot I25.10 ATHSCL HEART DISEASE OF [place] CORONARY 08/29/2016 MILLER-NEVAEH PA, MARÍA K Ot I48.2 CHRONIC ATRIAL FIBRILLATION 08/29/2016 MARÍA SALAMANCA Ot R07.89 OTHER CHEST PAIN 08/29/2016 MARÍA SALAMANCA Ot I10 ESSENTIAL (PRIMARY) HYPERTENSION 08/29/2016 MARÍA SALAMANCA Ot I25.10 ATHSCL HEART DISEASE OF [place] CORONARY 08/29/2016 MARÍA SALAMANCA Ot I48.2 CHRONIC ATRIAL FIBRILLATION 08/29/2016 MARÍA SALAMANCA Ot R07.89 OTHER CHEST PAIN 08/29/2016 Ot E11.65 TYPE 2 DIABETES MELLITUS WITH HYPERGLYCE 08/29/2016 JUAN DIEGO SOTELO SENIOR ENERGY MARKET COORDINATOR Ot E11.9 TYPE 2 DIABETES MELLITUS WITHOUT COMPLIC 08/29/2016 JUAN DIEGO SOTELO SENIOR ENERGY MARKET COORDINATOR Ot I10 ESSENTIAL (PRIMARY) HYPERTENSION 08/29/2016 JUAN DIEGO SOTELO APRN Ot I25.10 ATHSCL HEART DISEASE OF [place] CORONARY 08/29/2016 JUAN DIEGO SOTELO APRN Ot [...] 03/22/2017 CECILIA ELY, SAVANNAH Sinclair Ot V72.81 [id number] CARDIOVASCULAR 03/22/2017 CECILIA ELY, SAVANNAH Sinclair Ot [...] J Ot 530.81 ESOPHAGEAL REFLUX 03/22/2017 ANTHONY RAMESH DOQUELINE S Ot 250.00 DIAB JOSE WO COMPL, TYPE II OR UNSPEC TY 03/22/2017 ANTHONY RAMESH DOQUELINE S Ot 274.9 GOUT NOS 03/22/2017 DOMITILA WINTERS LAURA S Ot E11.9 TYPE 2 DIABETES MELLITUS WITHOUT COMPLIC 03/22/2017 DOMITILA WINTERS LAURA S Ot I25.10 ATHSCL HEART DISEASE OF [place] CORONARY 03/22/2017 MAURY RAMESH DOLINE S Ot R53.83 OTHER FATIGUE 03/22/2017 MARÍA SALAMANCA Ot I10 ESSENTIAL (PRIMARY) HYPERTENSION 03/22/2017 MARÍA SALAMANCA Ot I25.10 ATHSCL HEART DISEASE OF [place] CORONARY 03/22/2017 MARÍA SALAMANCA Ot I48.2 CHRONIC ATRIAL FIBRILLATION 03/22/2017 MARÍA SALAMANCA Ot R07.89 OTHER CHEST PAIN 03/22/2017 MARÍA SALAMANCA Ot I10 ESSENTIAL (PRIMARY) HYPERTENSION 03/22/2017 MILLER-NEVAEH PA, MARÍA K Ot I25.10 ATHSCL HEART DISEASE OF [place] CORONARY 03/22/2017 MARÍA SALAMANCA Ot I48.2 CHRONIC ATRIAL FIBRILLATION 03/22/2017 MARÍA SALAMANCA Ot R07.89 OTHER CHEST PAIN 03/22/2017 Ot E11.65 TYPE 2 DIABETES MELLITUS WITH HYPERGLYCE 03/22/2017 JUAN DIEGO SOTELO SENIOR ENERGY MARKET COORDINATOR Ot E11.9 TYPE 2 DIABETES MELLITUS WITHOUT COMPLIC 03/22/2017 JUAN DIEGO SOTELO SENIOR ENERGY MARKET COORDINATOR Ot I10 ESSENTIAL (PRIMARY) HYPERTENSION 03/22/2017 JUAN DIEGO SOTELO SENIOR ENERGY MARKET COORDINATOR Ot I25.10 ATHSCL HEART DISEASE OF [place] CORONARY 03/22/2017 JUAN DIEGO SOTELO SENIOR ENERGY MARKET COORDINATOR Ot Z12.5 ENCOUNTER FOR SCREENING FOR MALIGNANT NE 03/22/2017 LAURA RAMESH DO Ot E11.65 TYPE 2 DIABETES MELLITUS WITH HYPERGLYCE 03/22/2017 MARÍA SALAMANCA Ot I25.10 ATHSCL HEART DISEASE OF [place] CORONARY 03/25/2017 MARÍA SALAMANCA Ot I10 ESSENTIAL (PRIMARY) HYPERTENSION 03/25/2017 MARÍA SALAMANCA Ot I25.10 ATHSCL HEART DISEASE OF [place] CORONARY 03/25/2017 MARÍA SALAMANCA Ot I48.2 CHRONIC ATRIAL FIBRILLATION 03/25/2017 MARÍA SALAMANCA Ot I65.23 OCCLUSION AND STENOSIS OF [place]AL [place] 04/02/2017 MARÍA SALAMANCA Ot I10 ESSENTIAL (PRIMARY) HYPERTENSION 04/02/2017 MARÍA SALAMANCA Ot I25.10 ATHSCL HEART DISEASE OF [place] CORONARY 04/02/2017 MARÍA SALAMANCA Ot I48.2 CHRONIC ATRIAL FIBRILLATION 04/02/2017 MARÍA SALAMANCA Ot I65.23 OCCLUSION AND STENOSIS OF [place]IL[place]AL [place] 08/07/2017 LAURA RAMESH DO S Ot 250.00 DIAB JOSE WO COMPL, TYPE II OR UNSPEC TY 08/07/2017 LAURA RAMESH DO S Ot 274.9 GOUT NOS 08/07/2017 LAURA RAMESH DO S Ot 780.79 OTH MALAISE FATIGUE 08/07/2017 LOIER , LAURA S Ot V76.44 SCREEN MAL NEOP-PROSTATE 08/07/2017 SHIRANDER , LAURA S Ot 250.00 DIAB JOSE WO COMPL, TYPE II OR UNSPEC TY 08/07/2017 ORENDER DO, LAURA S Ot 780.79 OTH MALAISE FATIGUE 08/07/2017 CECILIA ELY, SAVANNAH Sinclair Ot 709.9 SKIN DISORDER NOS 08/07/2017 CECILIA ELY, SAVANNAH Sinclair Ot V72.81 [id number] CARDIOVASCULAR 08/07/2017 CECILIA ELY, SAVANNAH Sinclair Ot V74.8 SCREEN-BACTERIAL DIS NEC 08/07/2017 BTEH ELY, SKYLAR Narvaez Ot 250.00 DIAB JOSE [...] Ot 427.31 ATRIAL FIBRILLATION 08/07/2017 BETH ELY, SKLYAR J Ot 530.81 ESOPHAGEAL REFLUX 08/07/2017 BETH [...] S Ot I25.10 ATHSCL HEART DISEASE OF [place] CORONARY 08/07/2017 ANTHONY RAMESH DOQUELINE S Ot R53.83 OTHER FATIGUE 08/07/2017 MARÍA SALAMANCA Ot I10 ESSENTIAL (PRIMARY) HYPERTENSION 08/07/2017 MARÍA SALAMANCA Ot I25.10 ATHSCL HEART DISEASE OF [place] CORONARY 08/07/2017 MARÍA SALAMANCA Ot I48.2 CHRONIC ATRIAL FIBRILLATION 08/07/2017 MARÍA SALAMANCA Ot R07.89 OTHER CHEST PAIN 08/07/2017 MARÍA SALAMANCA Ot I10 ESSENTIAL (PRIMARY) HYPERTENSION 08/07/2017 MARÍA SALAMANCA Ot I25.10 ATHSCL HEART DISEASE OF [place] CORONARY 08/07/2017 MARÍA SALAMANCA Ot I48.2 CHRONIC ATRIAL FIBRILLATION 08/07/2017 MARÍA SALAMANCA Ot R07.89 OTHER CHEST PAIN 08/07/2017 Ot E11.65 TYPE 2 DIABETES MELLITUS WITH HYPERGLYCE 08/07/2017 JUAN DIEGO SOTELO SENIOR ENERGY MARKET COORDINATOR Ot E11.9 TYPE 2 DIABETES MELLITUS WITHOUT COMPLIC 08/07/2017 JUAN DIEGO SOTELO SENIOR ENERGY MARKET COORDINATOR Ot I10 ESSENTIAL (PRIMARY) HYPERTENSION 08/07/2017 JUAN DIEGO SOTELO SENIOR ENERGY MARKET COORDINATOR Ot I25.10 ATHSCL HEART DISEASE OF [place] CORONARY 08/07/2017 JUAN DIEGO SOTELO SENIOR ENERGY MARKET COORDINATOR Ot Z12.5 ENCOUNTER FOR SCREENING FOR MALIGNANT NE 08/07/2017 LAURA RAMESH DO S Ot E11.65 TYPE 2 DIABETES MELLITUS WITH HYPERGLYCE 08/07/2017 MARÍA SALAMANCA Ot I10 ESSENTIAL (PRIMARY) HYPERTENSION 08/07/2017 MARÍA SALAMANCA Ot I25.10 ATHSCL HEART DISEASE OF [place] CORONARY 08/07/2017 MARÍA SALAMANCA Ot I48.2 CHRONIC ATRIAL FIBRILLATION 08/07/2017 MARÍA SALAMANCA Ot I65.23 OCCLUSION AND STENOSIS OF BILATERAL [place] 08/07/2017 MAURY RAMESH DOLINE S Ot E11.65 TYPE 2 DIABETES MELLITUS WITH HYPERGLYCE 08/07/2017 LAURA RAMESH DO S Ot E78.2 MIXED HYPERLIPIDEMIA 08/13/2017 ANTHONY RAMESH DOQUELINE S Ot E11.65 TYPE 2 DIABETES MELLITUS WITH HYPERGLYCE 08/13/2017 ORENDER DO, LAURA S Ot E78.5 HYPERLIPIDEMIA, UNSPECIFIED 08/13/2017 ORENDER DO, LAURA S Ot I25.10 ATHSCL HEART DISEASE OF [place] CORONARY 08/13/2017 ORENDER DO, LAURA S Ot M10.9 GOUT, UNSPECIFIED 08/27/2017 ORENDER DO, LAURA S Ot E11.65 TYPE 2 DIABETES MELLITUS WITH HYPERGLYCE 08/27/2017 ORENDER DO, LAURA S Ot E78.5 HYPERLIPIDEMIA, UNSPECIFIED 08/27/2017 ORENDER DO, LAURA S Ot I25.10 ATHSCL HEART DISEASE OF [place] CORONARY 08/27/2017 SHIRANDER DO, LAURA S Ot [...] DIABETES MELLITUS WITHOUT COMPLIC 10/02/2017 ASHLIE VINCE DEPUTY SHERIFF GENERALIST Ot F32.9 MAJOR DEPRESSIVE DISORDER, SINGLE EPISOD 10/02/2017 ASHLIE, VINCE DEPUTY SHERIFF GENERALIST Ot F41.9 ANXIETY DISORDER, UNSPECIFIED 10/02/2017 ASHLIE VINCE DEPUTY SHERIFF GENERALIST Ot I10 ESSENTIAL (PRIMARY) HYPERTENSION 10/02/2017 ASHLIE VINCE DEPUTY SHERIFF GENERALIST Ot I25.10 ATHSCL HEART DISEASE OF [place] CORONARY 10/02/2017 ASHLIE VINCE DEPUTY SHERIFF GENERALIST Ot I48.91 UNSPECIFIED ATRIAL FIBRILLATION 10/02/2017 ASHLIE VINCE DEPUTY SHERIFF GENERALIST Ot K21.9 GASTRO-ESOPHAGEAL REFLUX DISEASE WITHOUT 10/02/2017 ASHLIE, VINCE DEPUTY SHERIFF GENERALIST Ot K92.1 MELENA 10/02/2017 ASHLIE VINCE DEPUTY SHERIFF GENERALIST Ot N40.0 BENIGN PROSTATIC HYPERPLASIA WITHOUT LOW 10/02/2017 ASHLIE VINCE DEPUTY SHERIFF GENERALIST Ot Z79.01 OYSTER WORKER (CURRENT) USE OF ANTICOAGULANT 10/02/2017 ASHLIE VINCE DEPUTY SHERIFF GENERALIST Ot Z79.02 INTERMEDIATE (CURRENT) USE OF ANTITHROMBOTI 10/02/2017 VINCE DAILEY Ot Z79.84 OYSTER WORKER (CURRENT) USE OF ORAL HYPOGLYC 10/02/2017 VINCE [...] Z98.890 OTHER SPECIFIED POSTPROCEDURAL STATES 10/02/2017 LAURA RAMESH DO Ot Z12.5 ENCOUNTER FOR SCREENING FOR MALIGNANT NE 10/07/2017 ANITA CONN MD Ot E11.9 TYPE 2 DIABETES MELLITUS WITHOUT COMPLIC 10/07/2017 ANITA CONN MD, Ot E78.5 HYPERLIPIDEMIA, UNSPECIFIED 10/07/2017 ANITA CONN MD Ot F32.9 MAJOR DEPRESSIVE DISORDER, SINGLE EPISOD 10/07/2017 ANITA CONN MD, Ot F41.9 ANXIETY DISORDER, UNSPECIFIED 10/07/2017 ANITA CONN MD, Ot I10 ESSENTIAL (PRIMARY) HYPERTENSION 10/07/2017 ANITA CONN MD, Ot I25.10 ATHSCL HEART DISEASE OF [place] CORONARY 10/07/2017 ANITA CONN MD, Ot I48.0 PAROXYSMAL ATRIAL FIBRILLATION 10/07/2017 ANITA CONN MD, Ot I95.9 HYPOTENSION, UNSPECIFIED 10/07/2017 ANITA CONN MD Ot M54.2 CERVICALGIA 10/07/2017 ANITA CONN MD Ot R07.9 CHEST PAIN, UNSPECIFIED 10/07/2017 ANITA CONN MD Ot R42 DIZZINESS AND GIDDINESS Procedures There is no data. Results Test [...] plasma albumin measurement (mass/volume) 4.0 g/dL 3.2-4.5 Complete blood count (CBC) with automated white blood cell (WBC) differential - 10/06/17 14:37 Blood leukocytes automated count (number/volume) 5.4 10*3/uL 4.3-11.0 Blood erythrocytes automated count (number/volume) 3.42 10*6/uL 4.35-5.85 Venous blood hemoglobin measurement (mass/volume) 10.9 g/dL 13.3-17.7 Blood hematocrit (volume fraction) 31 % 40-54 Automated erythrocyte mean corpuscular volume 90 [foz_us] 80-99 Automated erythrocyte mean corpuscular hemoglobin (mass per erythrocyte) 32 pg 25-34 Automated erythrocyte mean corpuscular hemoglobin concentration measurement ( mass/volume) 35 g/dL 32-36 Automated erythrocyte distribution width ratio 14.1 % 10.0-14.5 Automated blood platelet count (count/volume) 197 10*3/uL 130-400 Automated blood platelet mean volume measurement 9.7 [foz_us] 7.4-10.4 Automated blood neutrophils/100 leukocytes 58 % 42-75 Automated blood lymphocytes/100 leukocytes 28 % 12-44 Blood monocytes/100 leukocytes 13 % 0-12 Automated blood eosinophils/100 leukocytes 1 % 0-10 Automated blood basophils/100 leukocytes 0 % 0-10 Blood neutrophils automated count (number/volume) 3.1 10*3 1.8-7.8 Blood lymphocytes automated count (number/volume) 1.5 10*3 1.0-4.0 Blood monocytes automated count (number/volume) 0.7 10*3 0.0-1.0 Automated eosinophil count 0.1 10*3/uL 0.0-0.3 Automated blood basophil count (count/volume) 0.0 10*3/uL 0.0-0.1 Comprehensive metabolic panel - 10/06/17 14:37 Serum or plasma sodium measurement (moles/volume) 138 mmol/L 135-145 Serum or plasma potassium measurement (moles/volume) 3.9 mmol/L 3.6-5.0 Serum or plasma chloride measurement (moles/volume) 106 mmol/L 98-107 Carbon dioxide 23 mmol/L 21-32 Serum or plasma anion gap determination (moles/volume) 9 mmol/L 5-14 Serum or plasma urea nitrogen measurement (mass/volume) 11 mg/dL 7-18 Serum or plasma creatinine measurement (mass/volume) 0.79 mg/dL 0.60-1.30 Serum or plasma urea nitrogen/creatinine mass ratio 14 NRG Serum or plasma creatinine measurement with calculation of estimated glomerular filtration rate > NRG Serum or plasma glucose measurement (mass/volume) 136 mg/dL 70-105 Serum or plasma calcium measurement (mass/volume) 8.9 mg/dL 8.5-10.1 Serum or plasma total bilirubin measurement (mass/volume) 0.9 mg/dL 0.1-1.0 Serum or plasma alkaline phosphatase measurement (enzymatic activity/volume) 53 U/L 40-136 Serum or plasma aspartate aminotransferase measurement (enzymatic activity/ volume) 19 U/L 5-34 Serum or plasma alanine aminotransferase measurement (enzymatic activity/volume ) 21 U/L 0-55 Serum or plasma protein measurement (mass/volume) 6.5 g/dL 6.4-8.2 Serum or plasma albumin measurement (mass/volume) 3.9 g/dL 3.2-4.5 Magnesium - 10/06/17 14:37 Magnesium 2.0 mg/dL 1.8-2.4 PT panel in platelet poor plasma by coagulation assay - 10/06/17 14:37 Prothrombin time (PT) in platelet poor plasma by coagulation assay 15.8 s 12.2-14.7 INR in platelet poor plasma or blood by coagulation assay 1.3 0.8-1.4 Activated partial thromboplastin time (aPTT) in platelet poor plasma bycoagulation assay - 10/06/17 14:37 Activated partial thromboplastin time (aPTT) in platelet poor plasma bycoagulation assay 33 s 24-35 Serum or plasma troponin i.cardiac measurement (mass/volume) - 10/06/17 14:37 Serum or plasma troponin i.cardiac measurement (mass/volume) < ng/ mL <0.30 Myoglobin, serum - 10/06/17 14:37 Myoglobin, serum 49.1 ng/mL 10.0-92.0 Complete blood count (CBC) with automated white blood cell (WBC) differential - 10/07/17 06:20 Blood leukocytes automated count (number/volume) 4.2 10*3/uL 4.3-11.0 Blood erythrocytes automated count (number/volume) 3.16 10*6/uL 4.35-5.85 Venous blood hemoglobin measurement (mass/volume) 10.1 g/dL 13.3-17.7 Blood hematocrit (volume fraction) 29 % 40-54 Automated erythrocyte mean corpuscular volume 91 [foz_us] 80-99 Automated erythrocyte mean corpuscular hemoglobin (mass per erythrocyte) 32 pg 25-34 Automated erythrocyte mean corpuscular hemoglobin concentration measurement ( mass/volume) 35 g/dL 32-36 Automated erythrocyte distribution width ratio 13.7 % 10.0-14.5 Automated blood platelet count (count/volume) 161 10*3/uL 130-400 Automated blood platelet mean volume measurement 9.7 [foz_us] 7.4-10.4 Automated blood neutrophils/100 leukocytes 61 % 42-75 Automated blood lymphocytes/100 leukocytes 27 % 12-44 Blood monocytes/100 leukocytes 11 % 0-12 Automated blood eosinophils/100 leukocytes 2 % 0-10 Automated blood basophils/100 leukocytes 0 % 0-10 Blood neutrophils automated count (number/volume) 2.6 10*3 1.8-7.8 Blood lymphocytes automated count (number/volume) 1.1 10*3 1.0-4.0 Blood monocytes automated count (number/volume) 0.5 10*3 0.0-1.0 Automated eosinophil count 0.1 10*3/uL 0.0-0.3 Automated blood basophil count (count/volume) 0.0 10*3/uL 0.0-0.1 Whole blood basic metabolic panel - 10/07/17 06:20 Serum or plasma sodium measurement (moles/volume) 139 mmol/L 135-145 Serum or plasma potassium measurement (moles/volume) 3.8 mmol/L 3.6-5.0 Serum or plasma chloride measurement (moles/volume) 108 mmol/L 98-107 Carbon dioxide 20 mmol/L 21-32 Serum or plasma anion gap determination (moles/volume) 11 mmol/L 5-14 Serum or plasma urea nitrogen measurement (mass/volume) 10 mg/dL 7-18 Serum or plasma creatinine measurement (mass/volume) 0.76 mg/dL 0.60-1.30 Serum or plasma urea nitrogen/creatinine mass ratio 13 NRG Serum or plasma creatinine measurement with calculation of estimated glomerular filtration rate > NRG Serum or plasma glucose measurement (mass/volume) 148 mg/dL 70-105 Serum or plasma calcium measurement (mass/volume) 8.6 mg/dL 8.5-10.1 Lipid 1996 panel - 10/07/17 06:20 Serum or plasma triglyceride measurement (mass/volume) 168 mg/dL <150 Serum or plasma cholesterol measurement (mass/volume) 101 mg/dL < 200 Serum or plasma cholesterol in HDL measurement (mass/volume) 31 mg/ dL 40-60 Cholesterol in LDL [mass/volume] in serum or plasma by direct assay 49 mg/dL 1-129 Serum or plasma cholesterol in VLDL measurement (mass/volume) 34 mg/ dL 5-40 Serum or plasma troponin i.cardiac measurement (mass/volume) - 10/07/17 06:20 Serum or plasma troponin i.cardiac measurement (mass/volume) < ng/ mL <0.30 Encounters ACCT No. Visit Date/Time Discharge Status Pt. Type Provider Facility Loc./Unit Complaint [id number] 10/06/2017 17:30:00 10/07/2017 13:32:00 DIS Inpatient SENIA ELY, ANITA Markham [facility] 4TH CHEST PRESSURE R/O ACS, NEAR SYNCOPE,VERTIGO [id number] 09/30/2017 12:21:00 09/30/2017 14:57:00 DIS Outpatient VINCE DAILEY [facility] ER BLEEDING WITH BM [id number] 09/27/2017 11:23:00 09/27/2017 13:55:00 DIS Outpatient SAMMI BEAN MD [facility] ENDO SCREENING/HX POLYPS/ REFLUX [id number] 09/20/2017 10:29:00 09/20/2017 23:59:59 CLS Outpatient LAURA RAMESH DO [facility] LAB SCREENING [id number] 09/19/2017 05:50:00 09/19/2017 13:41:00 DIS Outpatient SAMMI BEAN MD [facility] PREOP COLONOSCOPY [id number] 08/07/2017 08:47:00 08/07/2017 23:59:59 CLS Outpatient LAURA RAMESH DO [facility] LAB DM II E11.65,CAD I25.10,GOUT M10,HYPERLIPID E78.5 [id number] 03/22/2017 09:12:00 03/22/2017 23:59:59 CLS Outpatient MARÍA SALAMANCA [facility] LAB I48.2 I25.10 I65.23 I10 [id number] 08/29/2016 11:41:00 08/29/2016 23:59:59 CLS Outpatient DOMITILA WINTERS LAURA S [facility] LAB E11.65 [id number] 05/08/2016 14:42:00 05/09/2016 19:58:00 DIS Outpatient SKYLAR CAMPOS MD [facility] CATH UNSTABLE ANGINA [id number] 01/06/2016 08:54:00 01/06/2016 23:59:59 CLS Outpatient JUAN DIEGO SOTELO APRN [facility] LAB DIABETES MELLITUS, ESSENTIAL HTN,CAD [id number] 09/11/2015 21:58:00 09/12/2015 18:50:00 DIS Inpatient ANTHONY RAMESH DOQUELINE S [facility] ICU CHEST PAIN; MYALGIA [id number] 07/06/2015 08:01:00 07/06/2015 23:59:59 CLS Outpatient MARÍA SALAMANCA [facility] CARD AF,CAD, CHEST PAIN,SYNDROME HTN [id number] 06/29/2015 14:33:00 06/29/2015 23:59:59 CLS Outpatient MARÍA SALAMANCA [facility] CARD AF, HTN [id number] 05/16/2015 13:16:00 05/16/2015 15:21:00 DIS Emergency DANIEL CLARK MD [facility] ER CHEST TIGHTNESS [id number] 03/08/2015 09:02:00 03/08/2015 23:59:59 CLS Outpatient ANTHONY RAMESH DOQUELINE S [facility] LAB CAD,DMII,FATIGUE [id number] 09/16/2014 10:21:00 09/16/2014 23:59:59 CLS Outpatient LAURA RAMESH DO [facility] LAB DMII,GOUT [id number] 09/01/2014 06:31:00 09/01/2014 15:00:00 DIS Outpatient SKYLAR CAMPOS MD [facility] CATH AFIB HTN HLP CHF DIABETES [id number] 08/22/2014 21:39:00 08/22/2014 22:42:00 DIS Emergency TONE RON [facility] ER POST SURGICAL WOUND PROBLEMS [id number] 08/18/2014 08:00:00 08/18/2014 23:59:59 CLS Outpatient SKYLAR CAMPOS MD [facility] CARD AFIB,GERD,HTN [id number] 08/16/2014 08:29:00 08/16/2014 23:59:59 CLS Outpatient SKYLAR CAMPOS MD [facility] CARD AFIB,GERD,HTN [id number] 08/04/2014 08:12:00 08/04/2014 14:40:00 DIS Outpatient SAVANNAH BROOKS MD [facility] SDC SKIN LESION [id number] 07/31/2014 09:01:00 07/31/2014 23:59:59 CLS Outpatient SKYLAR CAMPOS MD [facility] LAB AF,DM,GERD,HTN [id number] 07/28/2014 15:02:00 07/28/2014 23:59:59 CLS Outpatient SAVANNAH BROOKS MD [facility] PREOP SKIN LESION [id number] 04/30/2014 14:45:00 04/30/2014 18:03:00 DIS Emergency CHAS CHUA MD [facility] ER VOMITING COUGH/CONGESTION [id number] 10/05/2013 10:35:00 10/05/2013 23:59:59 CLS Outpatient LAURA RAMESH DO S [facility] LAB DMII,FATIGUE [id number] 06/12/2013 14:26:00 06/12/2013 23:59:59 CLS Outpatient LAURA RAMESH DO S [facility] LAB FATIGUE,GOUT [id number] 09/28/2015 10:12:00 Document Registration [id number] 04/30/2014 14:45:00 Document Registration [id number] 04/30/2014 14:45:00 Document Registration [id number] 10/24/2011 08:58:00 Document Registration [id number] 08/30/2011 08:09:00 Document Registration [id number] 08/22/2011 11:35:00 Document Registration [id number] 08/20/2011 18:22:00 Document Registration [id number] 01/13/2011 13:26:00 Document Registration [id number] 10/04/2010 14:39:00 Document Registration [id number] 06/06/2010 07:00:00 Document Registration [id number] 06/01/2010 15:18:00 Document Registration [id number] 08/10/2009 06:37:00 Document Registration [id number] 08/08/2009 16:59:00 Document Registration 11/29/09 09/20/2017 08:23:10 09/20/2017 23:59:59 [facility] Laura Sylvester
--- NOTE | 2017-10-19 12:42 | ED EENT ---
History of Present Illness General Stated Complaint: FALL/FACIAL INJ Source: patient Exam Limitations: no limitations History of Present Illness Date Seen by Provider: Oct 19, 2017 Time Seen by Provider: 12:39 Initial Comments to ER from home per private vehicle with reports of a fall and facial injury. He tripped while going up the stairs falling face first. He denies any loss of consciousness but states "I don't think I passed out, it took me minute to get my bearings though". He denies any neck pain. He denies any headache. He does report a nosebleed that seems to have stopped at this time. He is on Plavix and Eliquis.he believes his tetanus vaccination status to be up-to-date within the past 5 years Timing/Duration: abrupt Severity: moderate Location: facial Allergies and Home Medications Allergies Coded Allergies: CLARICEANo Known Allergies (Unverified Allergy, Mild, 09/19/17) Home Medications Acetaminophen 500 Mg Tablet, 500-1,000 MG PO Q6H PRN for PAIN-MILD, (Reported) TAKES 1-2 (500 MG) TABLETS Allopurinol 100 Mg Tablet, 100 MG PO DAILY, (Reported) Amlodipine Besylate 10 Mg Tablet, 10 MG PO DAILY, (Reported) Amoxicillin 500 Mg Capsule, 500 MG PO TID Prescribed by: SOHAIL OREILLY on 10/19/17 1336 Apixaban 5 Mg Tablet, 5 MG PO BID, (Reported) Atorvastatin Calcium 10 Mg Tablet, 10 MG PO DAILY, (Reported) Cetirizine HCl 10 Mg Tablet, 10 MG PO DAILY, (Reported) Clopidogrel Bisulfate 75 Mg Tablet, 75 MG PO DAILY, (Reported) Donepezil HCl 5 Mg Tablet, 5 MG PO HS, (Reported) Doxazosin Mesylate 4 Mg Tablet, 4 MG PO HS, (Reported) Escitalopram Oxalate 5 Mg Tablet, 10 MG PO DAILY Prescribed by: ANA RAMESH on 10/07/17 1232 Finasteride 5 Mg Tablet, 5 MG PO DAILY, (Reported) Lisinopril 20 Mg Tablet, 20 MG PO DAILY@0900 Prescribed by: ANA RAMESH on 10/07/17 1232 Metformin HCl 1,000 Mg Tablet, 1,000 MG PO BID, (Reported) Metoprolol Tartrate 25 Mg Tablet, 25 MG PO BID, (Reported) Nitroglycerin 0.4 Mg Tab.subl, 0.4 MG SL UD PRN for CHEST PAIN, (Reported) Ranitidine HCl 150 Mg Tablet, 150 MG PO DAILY PRN for HEARTBURN, (Reported) Patient Home Medication List Home Medication List Reviewed: Yes Review of Systems Constitutional: see HPI Eyes: No Symptoms Reported Ears: No Symptoms Reported Nose: see HPI, epistaxis Mouth: no symptoms reported Throat: no symptoms reported Respiratory: no symptoms reported Cardiovascular: no symptoms reported Musculoskeletal: no symptoms reported Past Stplmol-Ofyuhn-Vdcpuv Hx Patient Social History Alcohol Beverage of Choice: Beer Type Used: Cigarettes Former Smoker, Quit: Aug 07, 1987 Recent Foreign Travel: No Contact w/Someone Who Travel: No Recent Hopitalizations: No Immunizations Up To Date Tetanus Booster (TDap): Less than 5yrs PED Vaccines UTD: Yes Date of Pneumonia Vaccine: Feb 10, 2015 Date of Influenza Vaccine: Feb 18, 2017 Seasonal Allergies Seasonal Allergies: Yes (POLLEN ) Past Medical History Surgeries: Yes (HERNIA SURGERY, HEMORRHOIDS, EYE MUSCLE SURGERY, skin graft) Abdominal, Gallbladder Respiratory: No Currently Using CPAP: No Currently Using BIPAP: No Cardiac: Yes Atrial Fibrillation, Coronary Artery Disease, Hypertension Neurological: Yes (Myalgia) Reproductive Disorders: No Sexually Transmitted Disease: No HIV/AIDS: No Genitourinary: Yes Benign Prostatic Hyperpl Gastrointestinal: Yes (HX OF COLON CA) Gastroesophageal Reflux, Polyps Musculoskeletal: Yes Degenerate Disk Disease, Arthritis, Chronic Back Pain, Gout Endocrine: Yes (metformin) Diabetes, Non-Insulin dep HEENT: Yes Cataract Loss of Vision: Denies Hearing Impairment: Hard of Hearing Cancer: Yes Skin, Colon Did You Recieve Any Treatments: Yes What Type of Treatment Did You: Surgical Intervention Psychosocial: Yes Anxiety, Depression Integumentary: Yes (skin graft to left graham, BASAL CELL CARCINOMAS *10) Blood Disorders: No Adverse Reaction/Blood Tranf: No (N/A) Family Medical History Cardiovascular disease 19 FATHER Hypertension 19 FATHER Physical Exam Vital Signs Vital Signs - First Documented 10/19/17 12:41 Temp 98.6 Pulse 74 Resp 18 B/P (MAP) 116/75 (89) Pulse Ox 94 General Appearance: WD/WN, no apparent distress Eyes: bilateral eye normal inspection, bilateral eye PERRL, bilateral eye EOMI Ears: bilateral ear auricle normal, bilateral ear canal normal, bilateral ear TM normal Neck: non-tender, full range of motion Cardiovascular: regular rate, rhythm, no murmur Respiratory: normal breath sounds, no respiratory distress, no accessory muscle use Gastrointestinal: normal bowel sounds, non tender Neurologic/Psychiatric: alert, normal mood/affect, oriented x 3 Skin: normal color, warm/dry superficial laceration to the right nostril just lateral to the septum. This will not require suture. There is clot within each Narebut no active bleeding visualized. Extraocular muscles are intact. There is no hyphema Progress/Results/Core Measures Results/Orders My Orders Orders - SOHAIL OREILLY APRN Ct Head/Face/Cervical Wo (10/19/17 12:38) Oxymetazoline 0.05% Nasal [place] (Afrin 0. (10/19/17 13:28) Medications Given in ED Current Medications Medications Dose Ordered Sig/Jaylen Route Start Time Stop Time Status Last Admin Dose Admin Oxymetazoline HCl 15 ml STK-MED ONCE .ROUTE 10/19/17 13:28 10/19/17 13:30 DC 10/19/17 13:35 15 ML Vital Signs/I&O 10/19/17 12:41 Temp 98.6 Pulse 74 Resp 18 B/P (MAP) 116/75 (89) Pulse Ox 94 Diagnostic Imaging Diagonstic Imaging: CT Comments NAME: LISSET BOBBY [facility] REC#: [id number] PT STATUS: REG ER : 1945 PHYSICIAN: SOHAIL OREILLY APRN ADMIT DATE: 10/19/17/ER Signed Date of Exam:10/19/17 CT HEAD/FACE/CERVICAL WO PROCEDURE: CT head, face, and cervical spine without contrast. TECHNIQUE: Multiple contiguous axial images were obtained through the head, neck, and facial bones without the use of intravenous contrast. Sagittal and coronal reformations through the cervical spine and facial bones were also performed. INDICATION: Trip and fall with head, neck, and face injuries. COMPARISON: CT head from 10/06/2017 FINDINGS: CT head: The ventricles and cortical sulci are diffusely prominent. There is no midline shift or mass effect. No CT evidence of acute territorial ischemia seen. There is no acute intracranial hemorrhage. The calvarium appears intact. CT face: The pterygoid plates are intact. The zygomatic arches are intact. The mandible appears intact and in normal position. Motion artifact is noted. There is minimal offset at the anterior wall of the right maxillary sinus with minimal fluid in the right maxillary sinus (image 47 series 4).There is mild irregularity at the left nasal bone, which may represent a fracture. The globes are intact. The orbits appear intact. CT cervical spine: There is reversal of the cervical lordosis centered at C4. There is mild grade 1 anterolisthesis at C2-C3. Advanced degenerative changes are seen at C4-C5, C5-C6, and C6-C7. There is also mild grade 1 anterolisthesis at C7-T1. No acute fracture is seen. There is mild multilevel facet arthropathy. There may be mild spinal canal narrowing at C3-C4, C4-C5, and C5-C6. There is foraminal narrowing at C3-C4, C4-C5, C5-C6, C6-C7, which is degenerative. The thyroid appears large with hypoattenuating nodules. The soft tissues about the spine are otherwise unremarkable. IMPRESSION: 1. No acute intracranial hemorrhage or calvarium fracture seen. 2. Cortical offset at the anterior wall of the right maxillary sinus with minimal right maxillary sinus fluid. This is concerning for a fracture, please correlate with point tenderness. 3. Irregularity at the left nasal bones concerning for fracture as well. 4. Advanced multilevel degenerative changes in the cervical spine with no acute fracture seen. Dictated by: Dictated on workstation # [id number] Dict: 10/19/17 1308 Trans: 10/19/17 1323 [id number] Interpreted by: NUSRAT WALTON MD Electronically signed by: NUSRAT WALTON MD 10/19/17 1323 Departure Communication (Admissions) he is accompanied to ER by his who can observe him at home for any changes in mental status or worsening symptoms and return him to the emergency room Impression Primary Impression: Fracture of facial bone Disposition: 01 HOME, SELF-CARE Condition: Stable Departure-Patient Inst. Decision time for Depature: 13:35 Referrals: ANA RAMESH DO (PCP/Family) Primary Care Physician Patient Instructions: Nose Fracture Add. Discharge Instructions: 1. Antibiotics as directed 2. No blowing your nose for 2 weeks 3. You may squirt the Afrin decongestant and ear nose twice daily for not more than3 days to help with congestion. Follow-up with your doctor next week. Scripts Hydrocodone/Acetaminophen (Bayard 5-325 Tablet) 1 Each Tablet 1 EACH PO Q4H PRN for PAIN-SEVERE, #14 TAB Prov: SOHAIL OREILLY APRN 10/19/17 Amoxicillin (Amoxicillin) 500 Mg Capsule 500 MG PO TID, #21 CAP Prov: SOHAIL OREILLY APRN 10/19/17 Copy Copies To 1: ANA RAMESH PETER J APRN Oct 19, 2017 12:42
--- NOTE | 2017-10-19 13:21 | Diagnostic Imaging Report ---
PROCEDURE: CT head, face, and cervical spine without contrast. TECHNIQUE: Multiple contiguous axial images were obtained through the head, neck, and facial bones without the use of intravenous contrast. Sagittal and coronal reformations through the cervical spine and facial bones were also performed. INDICATION: Trip and fall with head, neck, and face injuries. COMPARISON: CT head from 10/06/2017 FINDINGS: CT head: The ventricles and cortical sulci are diffusely prominent. There is no midline shift or mass effect. No CT evidence of acute territorial ischemia seen. There is no acute intracranial hemorrhage. The calvarium appears intact. CT face: The pterygoid plates are intact. The zygomatic arches are intact. The mandible appears intact and in normal position. Motion artifact is noted. There is minimal offset at the anterior wall of the right maxillary sinus with minimal fluid in the right maxillary sinus (image 47 series 4).There is mild irregularity at the left nasal bone, which may represent a fracture. The globes are intact. The orbits appear intact. CT cervical spine: There is reversal of the cervical lordosis centered at C4. There is mild grade 1 anterolisthesis at C2-C3. Advanced degenerative changes are seen at C4-C5, C5-C6, and C6-C7. There is also mild grade 1 anterolisthesis at C7-T1. No acute fracture is seen. There is mild multilevel facet arthropathy. There may be mild spinal canal narrowing at C3-C4, C4-C5, and C5-C6. There is foraminal narrowing at C3-C4, C4-C5, C5-C6, C6-C7, which is degenerative. The thyroid appears large with hypoattenuating nodules. The soft tissues about the spine are otherwise unremarkable. IMPRESSION: 1. No acute intracranial hemorrhage or calvarium fracture seen. 2. Cortical offset at the anterior wall of the right maxillary sinus with minimal right maxillary sinus fluid. This is concerning for a fracture, please correlate with point tenderness. 3. Irregularity at the left nasal bones concerning for fracture as well. 4. Advanced multilevel degenerative changes in the cervical spine with no acute fracture seen. Dictated by: Dictated on workstation # [id number]
[2017-10-19] MEDS ORDERED: OXYMETAZOLINE (AFRIN) 0.05% NA 15 ML BTL ONE (13:28)
[2017-10-19] MEDS ORDERED: AMOX500C2 PO (13:36)
[2017-10-19] MEDS ORDERED: HYDR-757 PO (13:42)
[2017-10-19 13:45] VITALS: BP 116/75
== END 2017-10-19 13:48 | disposition home or self-care (01) ==
LOC: EDUNIT# 12:30 → ER 12:31
DX: S02.92XA Unspecified fracture of facial bones, initial encounter for closed fracture (principal); I48.91 Unspecified atrial fibrillation; I25.10 Atherosclerotic heart disease of native coronary artery without angina pectoris; I10 Essential (primary) hypertension; N40.0 Benign prostatic hyperplasia without lower urinary tract symptoms; K21.9 Gastro-esophageal reflux disease without esophagitis; M06.9 Rheumatoid arthritis, unspecified; E11.9 Type 2 diabetes mellitus without complications; F41.9 Anxiety disorder, unspecified; F32.9 Major depressive disorder, single episode, unspecified; Z79.84 Long term (current) use of oral hypoglycemic drugs; Z98.890 Other specified postprocedural states; Z85.828 Personal history of other malignant neoplasm of skin; Z85.038 Personal history of other malignant neoplasm of large intestine; Z87.891 Personal history of nicotine dependence; Z79.01 Long term (current) use of anticoagulants; Z79.02 Long term (current) use of antithrombotics/antiplatelets; W10.9XXA Fall (on) (from) unspecified stairs and steps, initial encounter
CPT/HCPCS: 70450; 70486; 72125

== ENCOUNTER 2017-11-08 13:46 | Emergency (ER) | payer MEDICARE ==
[~2017-11-08] VITALS: Ht 172.7 cm; Wt 98.0 kg
[~2017-11-08 13:46] MED LIST changes: +AMOX500C2 PO; +HYDR-757 PO
--- NOTE | 2017-11-08 14:13 | ED Respiratory ---
General Chief Complaint: Respiratory Problems Stated Complaint: SOA Source: patient Exam Limitations: no limitations History of Present Illness Date Seen by Provider: Nov 08, 2017 Time Seen by Provider: 14:07 Initial Comments The patient is a 72-year-old white male who appears somewhat older than that. He presents today with complaints of aggressive shortness of breath. He states that this has been increasing over the past 2 weeks. He also states that when he was last seen he was taken off of his hydrochlorothiazide. He has gained 8 pounds since that time. He reports that his shortness of breath is most noticeable when he tries to lie down. There has been some swelling of the feet and ankles. When asked about cardiac disease his states that he has a history of atrial fibrillation. Neither pointed out a coronary artery problem. Investigation of the records available to me show that he has paroxysmal atrial fibrillation. In addition he has had considerable intervention with the coronary arteries. Most recently he was angiogramed in [place] and had balloon angioplasty. There were considerable problems with small vessel disease. And no further intervention was deemed to be possible or advantageous. He does not report any chest pain during the past 2 weeks. Prior Episodes/Possible Cause: occasional episodes Associated Symptoms: shortness of breath Allergies and Home Medications Allergies Coded Allergies: NKANo Known Allergies (Unverified Allergy, Mild, 09/19/17) Home Medications Acetaminophen 500 Mg Tablet, 500-1,000 MG PO Q6H PRN for PAIN-MILD, (Reported) TAKES 1-2 (500 MG) TABLETS Allopurinol 100 Mg Tablet, 100 MG PO DAILY, (Reported) Amlodipine Besylate 10 Mg Tablet, 10 MG PO DAILY, (Reported) Amoxicillin 500 Mg Capsule, 500 MG PO TID Prescribed by: SOHAIL OREILLY on 10/19/17 1336 Apixaban 5 Mg Tablet, 5 MG PO BID, (Reported) Atorvastatin Calcium 10 Mg Tablet, 10 MG PO DAILY, (Reported) Cetirizine HCl 10 Mg Tablet, 10 MG PO DAILY, (Reported) Clopidogrel Bisulfate 75 Mg Tablet, 75 MG PO DAILY, (Reported) Donepezil HCl 5 Mg Tablet, 5 MG PO HS, (Reported) Doxazosin Mesylate 4 Mg Tablet, 4 MG PO HS, (Reported) Escitalopram Oxalate 5 Mg Tablet, 10 MG PO DAILY Prescribed by: ANA RAMESH on 10/07/17 1232 Finasteride 5 Mg Tablet, 5 MG PO DAILY, (Reported) Hydrocodone/Acetaminophen 1 Each Tablet, 1 EACH PO Q4H PRN for PAIN-SEVERE Prescribed by: SOHAIL OREILLY on 10/19/17 1342 Lisinopril 20 Mg Tablet, 20 MG PO DAILY@0900 Prescribed by: ANA RAMESH on 10/07/17 1232 Metformin HCl 1,000 Mg Tablet, 1,000 MG PO BID, (Reported) Metoprolol Tartrate 25 Mg Tablet, 25 MG PO BID, (Reported) Nitroglycerin 0.4 Mg Tab.subl, 0.4 MG SL UD PRN for CHEST PAIN, (Reported) Ranitidine HCl 150 Mg Tablet, 150 MG PO DAILY PRN for HEARTBURN, (Reported) Patient Home Medication List Home Medication List Reviewed: Yes Review of Systems Constitutional: see HPI EENTM: no symptoms reported Respiratory: cough, dyspnea on exertion, orthopnea, short of breath Cardiovascular: see HPI Gastrointestinal: no symptoms reported Genitourinary: no symptoms reported Musculoskeletal: no symptoms reported Skin: no symptoms reported Psychiatric/Neurological: No Symptoms Reported Hematologic/Lymphatic: No Symptoms Reported Immunological/Allergic: no symptoms reported Past Wnjdzzz-Kwlqdr-Olllsw Hx Patient Social History Alcohol Beverage of Choice: Beer Type Used: Cigarettes Former Smoker, Quit: Aug 07, 1987 2nd Hand Smoke Exposure: No Recent Foreign Travel: No Contact w/Someone Who Travel: No Recent Hopitalizations: No Immunizations Up To Date Tetanus Booster (TDap): Less than 5yrs PED Vaccines UTD: Yes Date of Pneumonia Vaccine: Feb 10, 2015 Date of Influenza Vaccine: Feb 18, 2017 Seasonal Allergies Seasonal Allergies: Yes (POLLEN ) Past Medical History Surgeries: Yes (HERNIA SURGERY, HEMORRHOIDS, EYE MUSCLE SURGERY, skin graft) Abdominal, Gallbladder Respiratory: No Currently Using CPAP: No Currently Using BIPAP: No Cardiac: Yes Atrial Fibrillation, Coronary Artery Disease, Hypertension Neurological: Yes (Myalgia) Reproductive Disorders: No Sexually Transmitted Disease: No HIV/AIDS: No Genitourinary: Yes Benign Prostatic Hyperpl Gastrointestinal: Yes (HX OF COLON CA) Gastroesophageal Reflux, Polyps Musculoskeletal: Yes Degenerate Disk Disease, Arthritis, Chronic Back Pain, Gout Endocrine: Yes (metformin) Diabetes, Non-Insulin dep HEENT: Yes Cataract Loss of Vision: Denies Hearing Impairment: Hard of Hearing Cancer: Yes Skin, Colon Did You Recieve Any Treatments: Yes What Type of Treatment Did You: Surgical Intervention Psychosocial: Yes Anxiety, Depression Integumentary: Yes (skin graft to left graham, BASAL CELL CARCINOMAS *10) Blood Disorders: No Adverse Reaction/Blood Tranf: No (N/A) Family Medical History Cardiovascular disease 19 FATHER Hypertension 19 FATHER Physical Exam Vital Signs Vital Signs - First Documented 11/08/17 13:58 Temp 97.7 Pulse 73 Resp 12 B/P (MAP) 150/94 (112) Pulse Ox 95 O2 Delivery Room Air Capillary Refill : General Appearance: mild distress Eyes: Bilateral Eye Normal Inspection HEENT: normal ENT inspection Neck: full range of motion, other (no JVD at 45) Respiratory: decreased breath sounds Cardiovascular: normal peripheral pulses, regular rate, rhythm, no edema, no gallop, no JVD, no murmur Gastrointestinal: normal bowel sounds, non tender, soft, no organomegaly, no pulsatile mass Extremities: normal range of motion, non-tender, pedal edema 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/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, no motor/sensory deficits, alert, normal mood/affect, oriented x 3 Skin: normal color, warm/dry Lymphatic: no adenopathy Progress/Results/Core Measures Suspected Sepsis SIRS Temperature: Pulse: Respiratory Rate: Laboratory Tests 11/08/17 14:06: White Blood Count 4.1L Blood Pressure / Mean: Laboratory Tests 11/08/17 14:06: Creatinine 0.72, Platelet Count 205, Total Bilirubin 1.1H Results/Orders Lab Results Laboratory Tests Test 11/08/17 14:06 Range/Units White Blood Count 4.1 L 4.3-11.0 10^3/uL Red Blood Count 3.75 L 4.35-5.85 10^6/uL Hemoglobin 11.1 L 13.3-17.7 G/DL Hematocrit 33 L 40-54 % Mean Corpuscular Volume 89 80-99 FL Mean Corpuscular Hemoglobin 30 25-34 PG Mean Corpuscular Hemoglobin Concent 33 32-36 G/DL Red Cell Distribution Width 13.0 10.0-14.5 % Platelet Count 205 130-400 10^3/uL Mean Platelet Volume 9.6 7.4-10.4 FL Neutrophils (%) (Auto) 62 42-75 % Lymphocytes (%) (Auto) 23 12-44 % Monocytes (%) (Auto) 14 H 0-12 % Eosinophils (%) (Auto) 1 0-10 % Basophils (%) (Auto) 1 0-10 % Neutrophils # (Auto) 2.5 1.8-7.8 X 10^3 Lymphocytes # (Auto) 1.0 1.0-4.0 X 10^3 Monocytes # (Auto) 0.6 0.0-1.0 X 10^3 Eosinophils # (Auto) 0.1 0.0-0.3 10^3/uL Basophils # (Auto) 0.0 0.0-0.1 10^3/uL Sodium Level 139 135-145 MMOL/L Potassium Level 3.7 3.6-5.0 MMOL/L Chloride Level 109 H 98-107 MMOL/L Carbon Dioxide Level 23 21-32 MMOL/L Anion Gap 7 5-14 MMOL/L Blood Urea Nitrogen 11 7-18 MG/DL Creatinine 0.72 0.60-1.30 MG/DL Estimat Glomerular Filtration Rate > 60 BUN/Creatinine Ratio 15 Glucose Level 83 70-105 MG/DL Calcium Level 9.0 8.5-10.1 MG/DL Total Bilirubin 1.1 H 0.1-1.0 MG/DL Aspartate Amino Transf (AST/SGOT) 18 5-34 U/L Alanine Aminotransferase (ALT/SGPT) 17 0-55 U/L Alkaline Phosphatase 67 40-136 U/L Troponin I < 0.30 <0.30 NG/ML B-Type Natriuretic Peptide 141.0 H <100.0 PG/ML Total Protein 7.1 6.4-8.2 GM/DL Albumin 4.2 3.2-4.5 GM/DL My Orders Orders - CHAS CHUA MD BNP (11/08/17 13:58) Cbc With Automated Diff (11/08/17 13:58) Comprehensive Metabolic Panel (11/08/17 13:58) Troponin I (11/08/17 13:58) Ua Culture If Indicated (11/08/17 13:58) Ekg Tracing (11/08/17 13:58) Chest 1 View, Ap/Pa Only (11/08/17 14:13) Vital Signs/I&O 11/08/17 13:58 Temp 97.7 Pulse 73 Resp 12 B/P (MAP) 150/94 (112) Pulse Ox 95 O2 Delivery Room Air Capillary Refill : Departure Communication (Admissions) 1602 the laboratory and other findings were discussed with the patient has . His SaO2 has been consistently above 95 percent. The chest x-ray showed cardiomegaly but no effusion or infiltrate. He reports that he had a fall about 2 weeks ago in which he suffered a fracture into the maxillary sinus. His biggest complaint is the inability to breathe through his nose. Impression Primary Impression: dyspnea Disposition: 01 HOME, SELF-CARE Condition: Stable/Unchanged Departure-Patient Inst. Decision time for Depature: 16:12 Referrals: ANA RAMESH DO (PCP/Family) Primary Care Physician Add. Discharge Instructions: All discharge instructions reviewed with patient and/or family. Voiced understanding. Use a nonsedating antihistamine such as Claritin or Sylvia to open your sinuses. Generic Flonase nasal spray used once or twice daily may also be of value. If continued problems see your provider. CHAS CHUA MD Nov 08, 2017 14:12
[2017-11-08 14:14] LABS: BASOPHILS % (AUTO) 1 % (0-10); EOSINOPHILS # (AUTO) 0.1 10^3/uL (0.0-0.3); EOSINOPHILS % (AUTO) 1 % (0-10); HEMATOCRIT 33 % (40-54); HEMOGLOBIN 11.1 G/DL (13.3-17.7); LYMPHOCYTES % (AUTO) 23 % (12-44); MEAN CORPUSCULAR HEMOGLOBIN 30 PG (25-34); MEAN CORPUSCULAR HGB CONC 33 G/DL (32-36); MEAN CORPUSCULAR VOLUME 89 FL (80-99); MEAN PLATELET VOLUME 9.6 FL (7.4-10.4); MONOCYTES # (AUTO) 0.6 X 10^3 (0.0-1.0); MONOCYTES % (AUTO) 14 % (0-12); NEUTROPHILS # (AUTO) 2.5 X 10^3 (1.8-7.8); NEUTROPHILS % (AUTO) 62 % (42-75); PLATELET COUNT 205 10^3/uL (130-400); RED BLOOD COUNT 3.75 10^6/uL (4.35-5.85); WHITE BLOOD COUNT 4.1 10^3/uL (4.3-11.0)
--- NOTE | 2017-11-08 14:39 | Diagnostic Imaging Report ---
INDICATION: Shortness of breath. TIME OF EXAMINATION: 02:26 p.m. COMPARISON: Correlation is made with prior study from 10/06/2017. FINDINGS: Heart is enlarged. Lungs are clear. No infiltrate or failure is detected. No effusion or pneumothorax is seen. IMPRESSION: Cardiomegaly. No other significant abnormality is seen. Dictated by: Dictated on workstation # [id number]
[2017-11-08 14:56] LABS: POTASSIUM 3.7 MMOL/L (3.6-5.0)
[2017-11-08 15:07] LABS: CHLORIDE 109 MMOL/L (98-107); SODIUM 139 MMOL/L (135-145)
[2017-11-08 15:08] LABS: BUN/CREATININE RATIO 15; CARBON DIOXIDE 23 MMOL/L (21-32); CREATININE SERUM 0.72 MG/DL (0.60-1.30)
[2017-11-08 15:09] LABS: ALKALINE PHOSPHATASE 67 U/L (40-136); BILIRUBIN,TOTAL 1.1 MG/DL (0.1-1.0); GFR ESTIMATED > 60; GLUCOSE 83 MG/DL (70-105)
[2017-11-08 15:10] LABS: ALANINE AMINOTRANSFERASE 17 U/L (0-55); ALBUMIN 4.2 GM/DL (3.2-4.5); TOTAL PROTEIN 7.1 GM/DL (6.4-8.2)
[2017-11-08 16:52] VITALS: BP 141/81
== END 2017-11-08 16:51 | disposition home or self-care (01) ==
LOC: EDUNIT# 13:46 → ER 13:48
DX: R06.00 Dyspnea, unspecified (principal); I48.0 Paroxysmal atrial fibrillation; F41.9 Anxiety disorder, unspecified; F32.9 Major depressive disorder, single episode, unspecified; I25.10 Atherosclerotic heart disease of native coronary artery without angina pectoris; I10 Essential (primary) hypertension; K21.9 Gastro-esophageal reflux disease without esophagitis; E11.9 Type 2 diabetes mellitus without complications; Z85.828 Personal history of other malignant neoplasm of skin; Z85.038 Personal history of other malignant neoplasm of large intestine; Z86.010 Personal history of colon polyps; Z79.01 Long term (current) use of anticoagulants; Z79.02 Long term (current) use of antithrombotics/antiplatelets; Z82.49 Family history of ischemic heart disease and other diseases of the circulatory system; Z79.84 Long term (current) use of oral hypoglycemic drugs; Z87.891 Personal history of nicotine dependence; Z87.19 Personal history of other diseases of the digestive system
CPT/HCPCS: 36415; 71045; 80053; 83880; 84484; 85025; 93005

== ENCOUNTER 2018-03-05 15:10 | Emergency (ER) | payer OTHER, MEDICARE ==
[~2018-03-05] VITALS: Ht 172.7 cm; Wt 92.5 kg
[~2018-03-05 15:10] MED LIST changes: -AMLO10TA2 PO; +AMLO10TA6 PO; +HYDR-4226 PO; -HYDR-757 PO; +METF-397 PO; +METF-399 PO; -METF10002 PO; -METF500T5 PO
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
[2018-03-05] MEDS ORDERED: ACHD5005 PO (17:03)
[2018-03-05 17:10] VITALS: BP 151/80
[2018-03-05] MEDS ORDERED: HYDROcodone/APAP 5 MG/325 MG (LORTAB) TAB PO ONE (17:15)
== END 2018-03-05 17:10 | disposition home or self-care (01) ==
LOC: EDUNIT# 15:10 → ER 15:12
DX: S39.012A Strain of muscle, fascia and tendon of lower back, initial encounter (principal); I48.91 Unspecified atrial fibrillation; I10 Essential (primary) hypertension; F41.9 Anxiety disorder, unspecified; F32.9 Major depressive disorder, single episode, unspecified; M10.9 Gout, unspecified; E11.9 Type 2 diabetes mellitus without complications; Z85.828 Personal history of other malignant neoplasm of skin; Z82.49 Family history of ischemic heart disease and other diseases of the circulatory system; Z79.01 Long term (current) use of anticoagulants; Z79.84 Long term (current) use of oral hypoglycemic drugs; Z87.891 Personal history of nicotine dependence; Z94.5 Skin transplant status; Z95.5 Presence of coronary angioplasty implant and graft; Z90.6 Acquired absence of other parts of urinary tract; V89.2XXA Person injured in unspecified motor-vehicle accident, traffic, initial encounter
CPT/HCPCS: 72131

== ENCOUNTER 2018-07-22 19:47 | Emergency (ER) | payer MEDICARE, OTHER ==
[~2018-07-22] VITALS: Ht 172.7 cm; Wt 98.4 kg
[~2018-07-22 19:47] MED LIST changes: -AMLO10TA6 PO; +AMLO10TA7 PO
--- NOTE | 2018-07-22 20:40 | ED General ---
General Stated Complaint: CONGESTED,FEVER,COUGH Source of Information: Patient Exam Limitations: No Limitations History of Present Illness Date Seen by Provider: Jul 22, 2018 Time Seen by Provider: 20:39 Initial Comments To ER within 8-10 day history of runny nose, productive cough, shortness of breath, diffuse body aches, diffuse weakness and chills. Timing/Duration: Other (8-10 days) Severity: Moderate Associated Systoms: Cough, Fever/Chills, Malaise, Nausea/Vomiting Allergies and Home Medications Allergies Coded Allergies: NKANo Known Allergies (Unverified Allergy, Mild, 09/19/17) Home Medications Acetaminophen 500 Mg Tablet, 500-1,000 MG PO Q6H PRN for PAIN-MILD, (Reported) TAKES 1-2 (500 MG) TABLETS Allopurinol 100 Mg Tablet, 100 MG PO DAILY, (Reported) Amlodipine Besylate 10 Mg Tablet, 10 MG PO DAILY, (Reported) Amoxicillin 500 Mg Capsule, 500 MG PO TID Prescribed by: SOHAIL OREILLY on 10/19/17 1336 Apixaban 5 Mg Tablet, 5 MG PO BID, (Reported) Atorvastatin Calcium 10 Mg Tablet, 10 MG PO DAILY, (Reported) Cetirizine HCl 10 Mg Tablet, 10 MG PO DAILY, (Reported) Clopidogrel Bisulfate 75 Mg Tablet, 75 MG PO DAILY, (Reported) Donepezil HCl 5 Mg Tablet, 5 MG PO HS, (Reported) Doxazosin Mesylate 4 Mg Tablet, 4 MG PO HS, (Reported) Doxycycline Hyclate 100 Mg Tablet, 100 MG PO BID Prescribed by: SOHAIL OREILLY on 07/22/18 2219 Escitalopram Oxalate 5 Mg Tablet, 10 MG PO DAILY Prescribed by: ANA ARAGON on 10/07/17 1232 Finasteride 5 Mg Tablet, 5 MG PO DAILY, (Reported) Hydrocodone Bit/Acetaminophen 1 Tab Tab, 1 EACH PO Q4-6HR PRN for PAIN-MODERATE Prescribed by: BRUNO ZARAGOZA on 03/05/18 1703 Hydrocodone/Acetaminophen 1 Each Tablet, 1 EACH PO Q4H PRN for PAIN-SEVERE Prescribed by: SOHAIL OREILLY on 10/19/17 1342 Lisinopril 20 Mg Tablet, 20 MG PO DAILY@0900 Prescribed by: ANA ARAGON on 10/07/17 1232 Metformin HCl 1,000 Mg Tablet, 1,000 MG PO BID, (Reported) Metoprolol Tartrate 25 Mg Tablet, 25 MG PO BID, (Reported) Nitroglycerin 0.4 Mg Tab.subl, 0.4 MG SL UD PRN for CHEST PAIN, (Reported) Prednisone 20 Mg Tab, 40 MG PO DAILY Prescribed by: SOHAIL OREILLY on 07/22/18 7866 Ranitidine HCl 150 Mg Tablet, 150 MG PO DAILY PRN for HEARTBURN, (Reported) Patient Home Medication List Home Medication List Reviewed: Yes Review of Systems Review of Systems Constitutional: see HPI, chills, malaise, weakness EENTM: see HPI, nose congestion Respiratory: see HPI, cough Cardiovascular: no symptoms reported Genitourinary: no symptoms reported Musculoskeletal: see HPI, muscle pain Skin: no symptoms reported Psychiatric/Neurological: No Symptoms Reported Hematologic/Lymphatic: No Symptoms Reported Immunological/Allergic: no symptoms reported Past Smlzrnt-Soawjs-Nbvgmi Hx Patient Social History Alcohol Beverage of Choice: Beer Type Used: Cigarettes Former Smoker, Quit: Aug 07, 1987 2nd Hand Smoke Exposure: No Recent Foreign Travel: No Contact w/Someone Who Travel: No Recent Hopitalizations: Yes Immunizations Up To Date Tetanus Booster (TDap): Less than 5yrs PED Vaccines UTD: Yes Date of Pneumonia Vaccine: Feb 10, 2015 Date of Influenza Vaccine: Feb 18, 2017 Seasonal Allergies Seasonal Allergies: Yes (POLLEN ) Past Medical History Surgeries: Yes (HERNIA SURGERY, HEMORRHOIDS, EYE MUSCLE SURGERY, skin graft) Coronary Stent, Cystectomy, Gallbladder Respiratory: No (pt states he has difficulty sleeping lying down, prefers to sleep upright) Currently Using CPAP: No Currently Using BIPAP: No Cardiac: Yes Atrial Fibrillation, Chronic Edema/Swelling, Hypertension Neurological: No Reproductive Disorders: No Sexually Transmitted Disease: No HIV/AIDS: No Genitourinary: Yes Benign Prostatic Hyperpl Gastrointestinal: Yes Hiatal Hernia Musculoskeletal: No Degenerate Disk Disease, Arthritis, Chronic Back Pain, Gout Endocrine: Yes Diabetes, Non-Insulin dep HEENT: Yes Cataract Loss of Vision: Denies Hearing Impairment: Hard of Hearing Cancer: Yes Skin Did You Recieve Any Treatments: Yes What Type of Treatment Did You: Surgical Intervention Psychosocial: Yes Anxiety, Depression Integumentary: Yes (skin graft to left graham, BASAL CELL CARCINOMAS *10) Blood Disorders: No Adverse Reaction/Blood Tranf: No (N/A) Family Medical History Cardiovascular disease FATHER Hypertension 19 FATHER Physical Exam Vital Signs Vital Signs - First Documented 07/22/18 20:30 Temp 99.6 Pulse 83 Resp 20 B/P (MAP) 156/68 (97) Pulse Ox 96 O2 Delivery Room Air Capillary Refill : Height, Weight, BMI Height: 5'8.00" Weight: 204lbs. 0oz. 92.362760au; 32.1 BMI Method:Stated General Appearance: No Apparent Distress, WD/WN Eyes: Bilateral Eye Normal Inspection, Bilateral Eye PERRL, Bilateral Eye EOMI HEENT: PERRL/EOMI, TMs Normal Neck: Full Range of Motion, Normal Inspection Respiratory: No Accessory Muscle Use, Decreased Breath Sounds Gastrointestinal: Non Tender, Soft Extremity: Normal Capillary Refill, Other (2+ pitting edema bilateral lower extremity's. Patient states this is actually better than usual for him.) Neurologic/Psychiatric: Alert, Oriented x3 Skin: Normal Color, Warm/Dry Focused Exam Lactate Level 07/22/18 20:40: Lactic Acid Level 1.12 Lactic Acid Level Laboratory Tests Test 07/22/18 20:40 Lactic Acid Level 1.12 MMOL/L (0.50-2.00) Progress/Results/Core Measures Suspected Sepsis SIRS Temperature: Pulse: Respiratory Rate: Laboratory Tests 07/22/18 20:40: White Blood Count 7.8 Blood Pressure / Mean: 07/22/18 20:40: Lactic Acid Level 1.12 Laboratory Tests 07/22/18 20:40: Creatinine 0.87, Platelet Count 180, Total Bilirubin 1.6H Results/Orders Lab Results Laboratory Tests Test 07/22/18 20:40 Range/Units White Blood Count 7.8 4.3-11.0 10^3/uL Red Blood Count 4.16 L 4.35-5.85 10^6/uL Hemoglobin 12.1 L 13.3-17.7 G/DL Hematocrit 36 L 40-54 % Mean Corpuscular Volume 87 80-99 FL Mean Corpuscular Hemoglobin 29 25-34 PG Mean Corpuscular Hemoglobin Concent 34 32-36 G/DL Red Cell Distribution Width 15.1 H 10.0-14.5 % Platelet Count 180 130-400 10^3/uL Mean Platelet Volume 9.7 7.4-10.4 FL Neutrophils (%) (Auto) 76 H 42-75 % Lymphocytes (%) (Auto) 12 12-44 % Monocytes (%) (Auto) 11 0-12 % Eosinophils (%) (Auto) 1 0-10 % Basophils (%) (Auto) 0 0-10 % Neutrophils # (Auto) 5.9 1.8-7.8 X 10^3 Lymphocytes # (Auto) 1.0 1.0-4.0 X 10^3 Monocytes # (Auto) 0.9 0.0-1.0 X 10^3 Eosinophils # (Auto) 0.1 0.0-0.3 10^3/uL Basophils # (Auto) 0.0 0.0-0.1 10^3/uL Sodium Level 139 135-145 MMOL/L Potassium Level 3.7 3.6-5.0 MMOL/L Chloride Level 109 H 98-107 MMOL/L Carbon Dioxide Level 20 L 21-32 MMOL/L Anion Gap 10 5-14 MMOL/L Blood Urea Nitrogen 13 7-18 MG/DL Creatinine 0.87 0.60-1.30 MG/DL Estimat Glomerular Filtration Rate > 60 BUN/Creatinine Ratio 15 Glucose Level 236 H 70-105 MG/DL Lactic Acid Level 1.12 0.50-2.00 MMOL/L Calcium Level 8.9 8.5-10.1 MG/DL Corrected Calcium 8.7 8.5-10.1 MG/DL Total Bilirubin 1.6 H 0.1-1.0 MG/DL Aspartate Amino Transf (AST/SGOT) 14 5-34 U/L Alanine Aminotransferase (ALT/SGPT) 14 0-55 U/L Alkaline Phosphatase 85 40-136 U/L Troponin I < 0.028 <0.028 NG/ML B-Type Natriuretic Peptide 163.3 H <100.0 PG/ML Total Protein 7.2 6.4-8.2 GM/DL Albumin 4.2 3.2-4.5 GM/DL Micro Results Microbiology 07/22/18 Influenza Types A,B Antigen (VANE) - Final, Complete My Orders Orders - SOHAIL OREILLY ENAMEL APPLIER Cbc With Automated Diff (07/22/18 20:37) BNP (07/22/18 20:37) Chest Pa/Lat (2 View) (07/22/18 20:37) Comprehensive Metabolic Panel (07/22/18 20:37) Influenza A And B Antigens (3/19/19 20:37) Troponin I (07/22/18 20:37) Blood Culture (07/22/18 20:37) Lactic Acid Analyzer (07/22/18 20:37) Ceftriaxone For Iv Use (Rocephin For I (07/22/18 22:30) Methylprednisolone Sod Succ (Solu-Medrol (07/22/18 22:30) Methylprednisolone Sod Succ (Solu-Medrol (07/22/18 22:20) Albuterol/Ipra Inhalation Soln (Duoneb I (07/22/18 22:30) Furosemide Injection (Lasix Injection) (07/22/18 22:30) Svn Small Volume Nebulizer (07/22/18 22:28) Vital Signs/I&O 07/22/18 20:30 Temp 99.6 Pulse 83 Resp 20 B/P (MAP) 156/68 (97) Pulse Ox 96 O2 Delivery Room Air Capillary Refill : ECG Comment NAME: [facility] REC#: [id number] PT STATUS: REG ER : 1945 PHYSICIAN: SOHAIL OREILLY APRN ADMIT DATE: 07/22/18/ER Signed Date of Exam:07/22/18 CHEST PA/LAT (2 VIEW) INDICATION: Productive cough. COMPARISON: 11/08/2017. FINDINGS: Increased left perihilar consolidations. Trace left pleural effusion. The heart is enlarged. No pneumothorax. IMPRESSION: Left perihilar consolidations are likely due to pneumonia. Asymmetric pulmonary edema could potentially give this appearance if patient does not have clinical symptoms of pneumonia. Dictated by: Dictated on workstation # [id number] Dict: 07/22/182127 Trans: 07/22/182208 NILDA [id number] Interpreted by: DEEPAK BARROW MD Electronically signed by: DEEPAK BARROW MD 07/22/182208 Departure Communication (Admissions) 2230-chest x-ray shows question will infiltrate left perihilar region versus asymmetric edema. He states he has a history of CHF and was on Lasix for a few days ago for months ago. It helped quite a bit and then he quit taking it. I'll give him a dose of Lasix here through his IV, follow-up with Dr. Aragon. We'll also treat for pneumonia outpatient. Impression Primary Impression: Pneumonia Qualified Codes: J18.9 - Pneumonia, unspecified organism Additional Impression: CHF (congestive heart failure) Qualified Codes: I50.9 - Heart failure, unspecified Disposition: 01 HOME, SELF-CARE Condition: Stable Departure-Patient Inst. Decision time for Depature: 22:16 Referrals: ANA ARAGON DO (PCP/Family) Primary Care Physician Patient Instructions: Pneumonia, Adult (DC) Add. Discharge Instructions: 1. Return to ER for any concerns 2. Antibiotics as directed 3. Call Dr. Aragon tomorrow to make an appointment for follow-up. Scripts Prednisone (Prednisone) 20 Mg Tab 40 MG PO DAILY, #6 TAB Prov: SOHAIL OREILLY APRN 07/22/18 Doxycycline Hyclate (Doxycycline Hyclate) 100 Mg Tablet 100 MG PO BID, #14 TAB Prov: SOHAIL OREILLY APRN 07/22/18 Copy Copies To 1: ANA ARAGON PETER J APRN Jul 22, 2018 20:40
[2018-07-22 20:58] LABS: BASOPHILS % (AUTO) 0 % (0-10); EOSINOPHILS # (AUTO) 0.1 10^3/uL (0.0-0.3); EOSINOPHILS % (AUTO) 1 % (0-10); HEMATOCRIT 36 % (40-54); HEMOGLOBIN 12.1 G/DL (13.3-17.7); LYMPHOCYTES % (AUTO) 12 % (12-44); MEAN CORPUSCULAR HEMOGLOBIN 29 PG (25-34); MEAN CORPUSCULAR HGB CONC 34 G/DL (32-36); MEAN CORPUSCULAR VOLUME 87 FL (80-99); MEAN PLATELET VOLUME 9.7 FL (7.4-10.4); MONOCYTES # (AUTO) 0.9 X 10^3 (0.0-1.0); MONOCYTES % (AUTO) 11 % (0-12); NEUTROPHILS # (AUTO) 5.9 X 10^3 (1.8-7.8); NEUTROPHILS % (AUTO) 76 % (42-75); PLATELET COUNT 180 10^3/uL (130-400); RED CELL DISTRIBUTION WIDTH 15.1 % (10.0-14.5); WHITE BLOOD COUNT 7.8 10^3/uL (4.3-11.0)
[2018-07-22 21:14] LABS: ALANINE AMINOTRANSFERASE 14 U/L (0-55); ALBUMIN 4.2 GM/DL (3.2-4.5); ALKALINE PHOSPHATASE 85 U/L (40-136); BILIRUBIN,TOTAL 1.6 MG/DL (0.1-1.0); BUN/CREATININE RATIO 15; CALCIUM 8.9 MG/DL (8.5-10.1); CARBON DIOXIDE 20 MMOL/L (21-32); CHLORIDE 109 MMOL/L (98-107); CREATININE SERUM 0.87 MG/DL (0.60-1.30); GFR ESTIMATED > 60; GLUCOSE 236 MG/DL (70-105); POTASSIUM 3.7 MMOL/L (3.6-5.0); SODIUM 139 MMOL/L (135-145); TOTAL PROTEIN 7.2 GM/DL (6.4-8.2)
--- NOTE | 2018-07-22 21:31 | Diagnostic Imaging Report ---
INDICATION: Productive cough. COMPARISON: 11/08/2017. FINDINGS: Increased left perihilar consolidations. Trace left pleural effusion. The heart is enlarged. No pneumothorax. IMPRESSION: Left perihilar consolidations are likely due to pneumonia. Asymmetric pulmonary edema could potentially give this appearance if patient does not have clinical symptoms of pneumonia. Dictated by: Dictated on workstation # [id number]
[2018-07-22] MEDS ORDERED: PRD20T PO (22:19)
[2018-07-22] MEDS ORDERED: DOXY100T2 PO (22:19)
[2018-07-22] MEDS ORDERED: methylPREDNISolone 125 MG (Solu-MEDROL) VIAL ONE (22:20)
[2018-07-22] MEDS ORDERED: FUROSEMIDE 40 MG/4 ML INJ (LASIX) IVP ONE (22:30)
[2018-07-22] MEDS ORDERED: RT-ALBUTEROL/IPRATROPIUM 3 ML (DUONEB) VIAL INH ONE (22:30)
[2018-07-22] MEDS ORDERED: cefTRIAXone FOR IV USE 1,000 MG in WATER (STERILE) FOR INJECTION 10 ML IV ONE (22:30)
[2018-07-22] MEDS ORDERED: methylPREDNISolone 125 MG (Solu-MEDROL) VIAL IVP ONE (22:30)
[2018-07-22 23:36] VITALS: BP 130/70
== END 2018-07-22 23:36 | disposition home or self-care (01) ==
LOC: EDUNIT# 19:47 → ER 19:48
DX: J18.9 Pneumonia, unspecified organism (principal); I11.0 Hypertensive heart disease with heart failure; I50.9 Heart failure, unspecified; I48.91 Unspecified atrial fibrillation; M10.9 Gout, unspecified; E11.9 Type 2 diabetes mellitus without complications; F41.9 Anxiety disorder, unspecified; F32.9 Major depressive disorder, single episode, unspecified; Z82.49 Family history of ischemic heart disease and other diseases of the circulatory system; Z94.5 Skin transplant status; Z85.828 Personal history of other malignant neoplasm of skin; Z87.19 Personal history of other diseases of the digestive system; Z87.448 Personal history of other diseases of urinary system; Z79.52 Long term (current) use of systemic steroids; Z79.02 Long term (current) use of antithrombotics/antiplatelets; Z87.891 Personal history of nicotine dependence; Z98.890 Other specified postprocedural states; Z95.5 Presence of coronary angioplasty implant and graft; Z90.6 Acquired absence of other parts of urinary tract
CPT/HCPCS: 36415; 71046; 80053; 83605; 83880; 84484; 85025; 87040; 87804; 94640; 96374; 96375

== ENCOUNTER 2018-10-30 18:47 | Observation (INO) | payer MEDICARE ==
[~2018-10-30] VITALS: Ht 172.7 cm; Wt 94.3 kg
[~2018-10-30 18:47] MED LIST changes: +DOXY100T2 PO; +PRD20T PO
--- OUTSIDE RECORDS SUMMARY | 2018-10-30 18:56 | XMS REPORT | Continuity of Care Document ---
Author Organization Unknown Address Unknown Allergies Active Description Code Type Severity Reaction Onset Reported/Identified Relationship to Patient Clinical Status Yes NKANo Known Allergies NKA Miscellaneous Allergy Mild N/A 09/19/2017 Medications There is no data. Problems Date Dx Coded Attending Type Code Diagnosis Diagnosed By 06/07/2010 Ot 401.9 HYPERTENSION NOS 06/07/2010 Ot 552.1 UMBILICAL HERNIA W OBSTR 06/07/2010 Ot 562.10 DIVERTICULOSIS COLON (W/O MENT OF HEMORR 06/07/2010 Ot 574.10 CHOLELITH W CHOLECYS NEC 06/07/2010 Ot V12.72 PERSONAL HISTORY OF COLONIC POLYPS 06/07/2010 Ot V58.69 OTH MED,LT,CURRENT USE 10/04/2010 Ot 722.52 LUMB/LUMBOSAC DISC DEGEN 10/04/2010 Ot 850.5 CONCUSSION W COMA NOS 10/04/2010 Ot 920 CONTUSION FACE/SCALP/NCK 10/04/2010 Ot 922.31 BACK CONTUSION 10/04/2010 Ot 959.01 HEAD INJURY, NOS 10/04/2010 Ot E000.0 CIVILIAN ACTIVITY DONE FOR INCOME OR PAY 10/04/2010 Ot E849.[address] NEC 10/04/2010 Ot E885.9 FALL FROM SLIPPING, TRIPPING, OR STUMBLI 01/13/2011 Ot 724.2 LUMBAGO 01/13/2011 Ot 846.0 SPRAIN LUMBOSACRAL 01/13/2011 Ot E000.0 CIVILIAN ACTIVITY DONE FOR INCOME OR PAY 01/13/2011 Ot E029.9 OTHER ACTIVITY 01/13/2011 Ot E849.0 ACCIDENT IN HOME 01/13/2011 Ot E928.8 ACCIDENT NEC 08/20/2011 Ot 550.90 UNILAT INGUINAL HERNIA 08/20/2011 Ot 724.5 BACKACHE NOS 08/20/2011 Ot 789.09 ABDOMINAL PAIN, OTHER SPECIFIED SITE 10/29/2011 Ot 722.52 LUMB/LUMBOSAC DISC DEGEN 10/29/2011 Ot V57.1 PHYSICAL THERAPY NEC 04/30/2014 Ot 574.20 04/30/2014 Ot 250.00 04/30/2014 Ot 272.4 04/30/2014 Ot 780.79 04/30/2014 Ot 789.00 04/30/2014 Ot 211.3 04/30/2014 Ot 574.20 04/30/2014 Ot V72.63 04/30/2014 Ot V74.8 04/30/2014 Ot 722.51 04/30/2014 Ot 722.52 04/30/2014 Ot 722.52 04/30/2014 SHIRANDOPAL DO, LAURA S Ot 250.00 04/30/2014 SHIRANDOPAL DO LAURA S Ot 274.9 04/30/2014 SHIRANDOPAL DO LAURA S Ot 780.79 04/30/2014 SHIRANDOPAL DOANTHONYLAURA S Ot V76.44 04/30/2014 SHIRANDOPAL DOANTHONYLAURA S Ot 250.00 04/30/2014 MAURY ARAGON DOLINE S Ot 780.79 04/30/2014 CHAS CHUA MD Ot 487.1 FLU W RESP MANIFEST NEC 04/30/2014 CHAS CHUA MD Ot 786.2 COUGH 07/31/2014 Ot 574.20 07/31/2014 Ot 250.00 07/31/2014 Ot 272.4 07/31/2014 Ot 780.79 07/31/2014 Ot 789.00 07/31/2014 Ot 211.3 07/31/2014 Ot 574.20 07/31/2014 Ot V72.63 07/31/2014 Ot V74.8 07/31/2014 Ot 722.51 07/31/2014 Ot 722.52 07/31/2014 Ot 722.52 07/31/2014 SHIRANDOPAL DO, LAURA S Ot 250.00 07/31/2014 SHIRANDOPAL DO LAURA S Ot 274.9 07/31/2014 SHIRANDOPAL DO, LAURA S Ot 780.79 07/31/2014 SHIRANDOPAL DO LAURA S Ot V76.44 07/31/2014 SHIRANDOPAL DOANTHONYLAURA S Ot 250.00 07/31/2014 SHIRANDOPAL DO LAURA S Ot 780.79 07/31/2014 CECILIA ELY, SAVANNAH Sinclair Ot 709.9 07/31/2014 CECILIA ELY, SAVANNAH Sinclair Ot V72.81 07/31/2014 CECILIA ELY, SAVANNAH Sinclair Ot V74.8 08/04/2014 CECILIA ELY, SAVANNAH Sinclair Ot 216.7 BENIGN SHERON SKIN LEG 08/04/2014 CECILIA ELY, SAVANNAH Sinclair Ot 250.00 DIAB JOSE WO COMPL, TYPE II OR UNSPEC TY 08/10/2014 CECILIA ELY, SAVANNAH Sinclair Ot 709.9 08/10/2014 CECILIA ELY, SAVANNAH Sinclair Ot V72.81 08/10/2014 CECILIA ELY, SAVANNAH Sinclair Ot V74.8 08/12/2014 SKYLAR CAMPOS MD Ot [...] CAMPOS MD Ot 414.01 CORONARY ATHEROSCLEROSIS OF [place] CORON 09/01/2014 SKYLAR CAMPOS MD Ot 427.31 ATRIAL FIBRILLATION 09/01/2014 SKYLAR CAMPOS MD Ot 428.0 CONGESTIVE HEART FAILURE NOS 09/01/2014 SKYLAR CAMPOS MD Ot 428.22 CHRONIC SYSTOLIC HRT FAILURE 09/01/2014 BETH ELY, SKYLAR Narvaez Ot 794.30 ABN CARDIOVASC STUDY NOS 09/01/2014 BETH ELY, SKYLAR Narvaez Ot V15.82 HISTORY OF TOBACCO USE 09/01/2014 BETH ELY, SKYLAR Narvaez Ot V58.69 OT MED,LT,CURRENT USE 09/16/2014 Ot [...] Sinclair Ot V74.8 09/16/2014 BETH ELY, SKYLAR Narvaez Ot 250.00 09/16/2014 BETH ELY, SKYLAR Narvaez Ot 401.9 09/16/2014 BETH ELY, SKYLAR Narvaez Ot 427.31 09/16/2014 BETH ELY, SKYLAR Narvaez Ot 530.81 09/16/2014 BETH ELY, SKYLAR Narvaez Ot 250.00 09/16/2014 BETH ELY, SKYLAR Narvaez Ot 401.9 09/16/2014 BETH ELY, SKYLAR Narvaez Ot 427.31 09/16/2014 SKYLAR CAMPOS MD Ot 530.81 09/16/2014 BETH ELY, SKYLAR Narvaez Ot 250.00 09/16/2014 BETH ELY, SKYLAR Narvaez Ot 401.9 09/16/2014 BETH ELY, SKYLAR Narvaez [...] Sinclair Ot V74.8 09/16/2014 BETH ELY, SKYLAR Narvaez Ot 250.00 09/16/2014 BETH ELY, SKYLAR Narvaez Ot 401.9 09/16/2014 BETH ELY, SKYLAR Narvaez Ot 427.31 09/16/2014 BETH ELY, SKYLAR Narvaez Ot 530.81 09/16/2014 BETH ELY, SKYLAR J Ot 250.00 09/16/2014 BETH ELY, SKYLAR Narvaez Ot 401.9 09/16/2014 BETH ELY, SKYLAR Narvaez Ot 427.31 09/16/2014 BETH ELY, SKYLAR Narvaez Ot 530.81 09/16/2014 BETH ELY, SKYLAR Narvaez Ot 250.00 09/16/2014 BETH ELY, SKYLAR Narvaez Ot 401.9 09/16/2014 BETH ELY, SKYLAR Narvaez [...] M Ot V72.81 09/16/2014 CECILIA ELY, SAVANNAH Sinclair Ot V74.8 09/16/2014 BETH ELY, SKYLAR Narvaez Ot 250.00 09/16/2014 BETH ELY, SKYLAR Narvaez Ot 401.9 09/16/2014 BETH ELY, SKYLAR Narvaez Ot 427.31 09/16/2014 BETH ELY, SKYLAR Narvaez Ot 530.81 09/16/2014 BETH ELY, SKYLAR J Ot 250.00 09/16/2014 BETH ELY, SKYLAR Narvaez Ot 401.9 09/16/2014 BETH ELY, SKYLAR Narvaez Ot 427.31 09/16/2014 BETH ELY, SKYLAR Narvaez Ot 530.81 09/16/2014 BETH ELY, SKYLAR J Ot 250.00 09/16/2014 BETH ELY, SKYLAR J Ot 401.9 09/16/2014 BETH ELY, SKYLAR Narvaez Ot 427.31 09/16/2014 BETH ELY, SKYLAR Narvaez Ot 530.81 10/18/2014 ORENDER DO, LAURA S [...] Sinclair Ot 709.9 10/18/2014 CECILIA ELY, SAVANNAH M Ot V72.81 10/18/2014 CECILIA ELY, SAVANNAH M Ot V74.8 10/18/2014 BETH ELY, SKYLAR J Ot 250.00 10/18/2014 BETH ELY, SKYLAR Narvaez Ot 401.9 10/18/2014 BETH ELY, SKYLAR J [...] J Ot 427.31 10/18/2014 BETH ELY, SKYLAR Narvaez Ot 530.81 10/18/2014 ORENDER DO, LAURA S Ot 250.00 10/18/2014 MAURY ARAGON DOLINE S Ot 274.9 10/22/2014 BETH ELY, SKYLAR Narvaez Ot 250.00 10/22/2014 BETH ELY, SKYLAR Narvaez Ot 401.9 10/22/2014 BETH ELY, SKYLAR J Ot 427.31 10/22/2014 BETH ELY, SKYLAR Narvaez Ot 530.81 10/22/2014 BETH ELY, SKYLAR Narvaez Ot 250.00 10/22/2014 BETH ELY, SKYLAR Narvaez Ot 401.9 10/22/2014 BETH ELY, SKYLAR Narvaez Ot 427.31 10/22/2014 BETH ELY, SKYLAR Narvaez Ot 530.81 03/21/2015 MAURY ARAGON DOLINE S Ot E11.9 03/21/2015 MAURY ARAGON DOLINE S Ot I25.10 03/21/2015 MAURY ARAGON DOLINE S Ot R53.83 05/16/2015 AMBER ELY, DANIEL [place] Ot I51.7 CARDIOMEGALY 05/16/2015 AMBER ELY, DANIEL [place] Ot R06.00 DYSPNEA, UNSPECIFIED 05/16/2015 AMBER ELY, DANIEL [place] Ot R07.89 OTHER CHEST PAIN 07/11/2015 MARÍA SALAMANCA Ot I10 07/11/2015 MARÍA SALAMANCA Ot I25.10 07/11/2015 MARÍA SALAMANCA Ot I48.2 07/11/2015 MARÍA SALAMANCA Ot R07.89 07/18/2015 EVELYN HUGGINS, MARÍA [place] Ot I10 07/18/2015 MARÍA SALAMANCA Ot I25.10 07/18/2015 EVELYN HUGGINS, MARÍA [place] Ot I48.2 07/18/2015 MARÍA SALAMANCA Ot R07.89 09/12/2015 MAURY ARAGON DOLINE S Ot B34.9 VIRAL INFECTION, UNSPECIFIED 09/12/2015 MAURY ARAGON DOLINE S Ot E11.9 TYPE 2 DIABETES MELLITUS WITHOUT COMPLIC 09/12/2015 MAURY ARAGON DOLINE S Ot E78.5 HYPERLIPIDEMIA, UNSPECIFIED 09/12/2015 ORENDER DO, LAURA S Ot I11.0 HYPERTENSIVE HEART DISEASE WITH HEART FA 09/12/2015 SHIRANDER DO, LAURA S Ot I25.10 ATHSCL HEART DISEASE OF [place] CORONARY 09/12/2015 SHIRANDER DO, LAURA S Ot I48.91 UNSPECIFIED ATRIAL FIBRILLATION 09/12/2015 SHIRANDER DO, LAURA S Ot I50.30 UNSPECIFIED DIASTOLIC (CONGESTIVE) HEART 09/12/2015 SHIRANDER DO, LAURA S Ot I95.9 HYPOTENSION, UNSPECIFIED 09/12/2015 ORENDER DO, LAURA S Ot R07.89 OTHER CHEST PAIN 09/12/2015 SHIRANDER DO, LAURA S Ot R53.83 OTHER FATIGUE 09/12/2015 SHIRANDER DO, LAURA S Ot Z87.891 PERSONAL HISTORY OF NICOTINE DEPENDENCE 09/12/2015 SHIRANDER DO, LAURA S Ot Z98.61 CORONARY ANGIOPLASTY STATUS 09/12/2015 SHIRANDER DO, LAURA S Ot B34.9 VIRAL INFECTION, UNSPECIFIED 09/12/2015 SHIRANDER DO, LAURA S Ot E11.9 TYPE 2 DIABETES MELLITUS WITHOUT COMPLIC 09/12/2015 SHIRANDER DO, LAURA S Ot E78.5 HYPERLIPIDEMIA, UNSPECIFIED 09/12/2015 SHIRANDER DO, LAURA S Ot I11.0 HYPERTENSIVE HEART DISEASE WITH HEART FA 09/12/2015 SHIRANDER DO, LAURA S Ot I25.10 ATHSCL HEART DISEASE OF [place] CORONARY 09/12/2015 SHIRANDER DO, LAURA S Ot I48.91 UNSPECIFIED ATRIAL FIBRILLATION [...] MELLITUS WITH HYPERGLYCE 01/17/2016 JUAN DIEGO SOTELO Cora CARDIOPULMONARY TECHNICIAN AND EEG TECH Ot E11.9 TYPE 2 DIABETES MELLITUS WITHOUT COMPLIC 01/17/2016 JUAN DIEGO SOTELO Cora CARDIOPULMONARY TECHNICIAN AND EEG TECH Ot I10 ESSENTIAL (PRIMARY) HYPERTENSION 01/17/2016 JUAN DIEGO SOTELO Cora CARDIOPULMONARY TECHNICIAN AND EEG TECH Ot I25.10 ATHSCL HEART DISEASE OF [place] CORONARY 01/17/2016 JUAN DIEGO SOTELO Cora CARDIOPULMONARY TECHNICIAN AND EEG TECH Ot Z12.5 ENCOUNTER FOR SCREENING FOR MALIGNANT NE 05/08/2016 Ot 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 05/08/2016 Ot 722.52 LUMB/LUMBOSAC DISC DEGEN 05/08/2016 Ot 722.52 LUMB/LUMBOSAC DISC DEGEN 05/08/2016 ANTHONY ARAGON DOQUELINE S Ot 250.00 DIAB JOSE WO COMPL, TYPE II OR UNSPEC TY 05/08/2016 MAURY ARAGON DOLINE S Ot 274.9 GOUT NOS 05/08/2016 ANTHONY ARAGON DOQUELINE S Ot 780.79 OTH MALAISE FATIGUE 05/08/2016 ANTHONY ARAGON DOQUELINE S Ot V76.44 SCREEN MAL NEOP-PROSTATE 05/08/2016 DOMITILA WINTERS LAURA S Ot 250.00 DIAB JOSE WO COMPL, TYPE II OR UNSPEC TY 05/08/2016 SHIRANDOPAL WINTERS, LAURA S Ot 780.79 OTH MALAISE FATIGUE 05/08/2016 CECILIA ELY, SAVANNAH Sinclair Ot 709.9 SKIN DISORDER NOS 05/08/2016 CECILIA ELY, SAVANNAH Sinclair Ot V72.81 DZAP-[id number]-[id number] CARDIOVASCULAR 05/08/2016 CECILIA ELY, SAVANNAH Sinclair Ot V74.8 SCREEN-BACTERIAL DIS NEC 05/08/2016 BETH ELY, SKYLAR Narvaez Ot 250.00 DIAB JOSE WO COMPL, TYPE II OR UNSPEC TY 05/08/2016 BETH ELY, SKYLAR Narvaez Ot 401.9 HYPERTENSION NOS 05/08/2016 SKYLAR CAMPOS MD Ot 427.31 ATRIAL FIBRILLATION 05/08/2016 SKYLAR CAMPOS MD Ot 530.81 ESOPHAGEAL REFLUX 05/08/2016 SKYLAR CAMPOS MD Ot 250.00 DIAB JOSE WO COMPL, TYPE II OR UNSPEC TY 05/08/2016 SKYLAR CAMPOS MD Ot 401.9 HYPERTENSION NOS 05/08/2016 BETH ELY, SKYLAR Narvaez Ot 427.31 ATRIAL FIBRILLATION 05/08/2016 SKYLAR CAMPOS MD Ot 530.81 ESOPHAGEAL REFLUX 05/08/2016 SKYLAR CAMPOS MD Ot 250.00 DIAB JOSE WO COMPL, TYPE II OR UNSPEC TY 05/08/2016 SKYLAR CAMPOS MD Ot 401.9 HYPERTENSION NOS 05/08/2016 SKYLAR CAMPOS MD Ot 427.31 ATRIAL FIBRILLATION 05/08/2016 SKYLAR CAMPOS MD Ot 530.81 ESOPHAGEAL REFLUX 05/08/2016 DOMITILA WINTERS, LAURA S Ot 250.00 DIAB JOSE WO COMPL, TYPE II OR UNSPEC TY 05/08/2016 ORENDER DO, LAURA S Ot 274.9 GOUT NOS 05/08/2016 SHIRANDOPAL WINTERS, LAURA S Ot E11.9 TYPE 2 DIABETES MELLITUS WITHOUT COMPLIC 05/08/2016 SHIRANDOPAL WINTERS, LAURA S Ot I25.10 ATHSCL HEART DISEASE OF [place] CORONARY 05/08/2016 ANTHONY ARAGON DOQUELINE S Ot R53.83 OTHER FATIGUE 05/08/2016 MARÍA SALAMANCA Ot I10 ESSENTIAL (PRIMARY) HYPERTENSION 05/08/2016 MARÍA SALAMANCA Ot I25.10 ATHSCL HEART DISEASE OF [place] CORONARY 05/08/2016 MARÍA SALAMANCA Ot I48.2 CHRONIC ATRIAL FIBRILLATION 05/08/2016 MARÍA SALAMANCA Ot R07.89 OTHER CHEST PAIN 05/08/2016 MARÍA SALAMANCA Ot I10 ESSENTIAL (PRIMARY) HYPERTENSION 05/08/2016 MARÍA SALAMANCA Ot I25.10 ATHSCL HEART DISEASE OF [place] CORONARY 05/08/2016 MARÍA SALAMANCA Ot I48.2 CHRONIC ATRIAL FIBRILLATION 05/08/2016 MARÍA SALAMANCA Ot R07.89 OTHER CHEST PAIN 05/08/2016 Ot E11.65 TYPE 2 DIABETES MELLITUS WITH HYPERGLYCE 05/08/2016 JUAN DIEGO SOTELO CARDIOPULMONARY TECHNICIAN AND EEG TECH Ot E11.9 TYPE 2 DIABETES MELLITUS WITHOUT COMPLIC 05/08/2016 JUAN DIEGO SOTELO CARDIOPULMONARY TECHNICIAN AND EEG TECH Ot I10 ESSENTIAL (PRIMARY) HYPERTENSION 05/08/2016 JUAN DIEGO SOTELO Cora CARDIOPULMONARY TECHNICIAN AND EEG TECH Ot I25.10 ATHSCL HEART DISEASE OF [place] CORONARY 05/08/2016 JUAN DIEGO SOTELO Cora CARDIOPULMONARY TECHNICIAN AND EEG TECH Ot Z12.5 ENCOUNTER FOR SCREENING FOR MALIGNANT NE 05/09/2016 SKYLAR CAMPOS MD Ot E11.9 TYPE 2 DIABETES MELLITUS WITHOUT COMPLIC 05/09/2016 SKYLAR CAMPOS MD Ot I10 ESSENTIAL (PRIMARY) HYPERTENSION 05/09/2016 SKYLAR CAMPOS MD Ot I25.10 ATHSCL HEART DISEASE OF [place] CORONARY 05/09/2016 SKYLAR CAMPOS MD Ot I48.2 CHRONIC ATRIAL FIBRILLATION 05/09/2016 SKYLAR CAMPOS MD Ot K21.9 GASTRO-ESOPHAGEAL REFLUX DISEASE WITHOUT 05/09/2016 SKYLAR CAMPOS MD Ot R07.89 OTHER CHEST PAIN 05/09/2016 SKYLAR CAMPOS MD Ot Z79.01 ASSISTED (CURRENT) USE OF ANTICOAGULANT 05/09/2016 SKYLAR CAMPOS MD Ot Z79.899 OTHER ASSISTED (CURRENT) DRUG THERAPY 05/09/2016 SKYLAR CAMPOS MD Ot Z95.5 PRESENCE OF CORONARY ANGIOPLASTY IMPLANT 06/07/2016 SKYLAR CAMPOS MD Ot E11.9 TYPE 2 DIABETES MELLITUS WITHOUT COMPLIC 06/07/2016 SKYLAR CAMPOS MD Ot I10 ESSENTIAL (PRIMARY) HYPERTENSION 06/07/2016 SKYLAR CAMPOS MD Ot I25.10 ATHSCL HEART DISEASE OF [place] CORONARY 06/07/2016 SKYLAR CAMPOS MD Ot I48.2 CHRONIC ATRIAL FIBRILLATION 06/07/2016 SKYLAR CAMPOS MD Ot K21.9 GASTRO-ESOPHAGEAL REFLUX DISEASE WITHOUT 06/07/2016 SKYLAR CAMPOS MD Ot R07.89 OTHER CHEST PAIN 06/07/2016 SKYLAR CAMPOS MD Ot Z79.01 CUSTOM SHOEMAKER (CURRENT) USE OF ANTICOAGULANT 06/07/2016 SKYLAR CAMPOS MD Ot Z79.899 OTHER CUSTOM SHOEMAKER (CURRENT) DRUG THERAPY 06/07/2016 SKYLAR CAMPOS MD Ot Z95.5 PRESENCE OF CORONARY ANGIOPLASTY IMPLANT 06/12/2016 Ot 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 06/12/2016 Ot 722.52 LUMB/LUMBOSAC DISC DEGEN 06/12/2016 Ot 722.52 LUMB/LUMBOSAC DISC DEGEN 06/12/2016 ORENDER DO, LAURA S Ot 250.00 DIAB JOSE WO COMPL, TYPE II OR UNSPEC TY 06/12/2016 ORENDER DO, LAURA S Ot 274.9 GOUT NOS 06/12/2016 ORENDER DO, LAURA S Ot 780.79 OTH MALAISE FATIGUE 06/12/2016 ORENDER DO, LAURA S Ot V76.44 SCREEN MAL NEOP-PROSTATE 06/12/2016 ORENDER DO, LAURA S Ot 250.00 DIAB JOSE WO COMPL, TYPE II OR UNSPEC TY 06/12/2016 ORENDER DO, LAURA S Ot 780.79 OTH MALAISE FATIGUE 06/12/2016 CECILIA ELY, SAVANNAH Sinclair Ot 709.9 SKIN DISORDER NOS 06/12/2016 CECILIA ELY, SAVANNAH Sinclair Ot V72.81 [id number] CARDIOVASCULAR 06/12/2016 CECILIA ELY, SAVANNAH Sinclair Ot V74.8 SCREEN-BACTERIAL DIS NEC 06/12/2016 BETH ELY, SKYLAR Narvaez Ot 250.00 DIAB JOSE WO COMPL, TYPE II OR UNSPEC TY 06/12/2016 SKYLAR CAMPOS MD Ot 401.9 HYPERTENSION NOS 06/12/2016 SKYLAR CAMPOS MD Ot 427.31 ATRIAL FIBRILLATION 06/12/2016 SKYLAR CAMPOS MD Ot 530.81 ESOPHAGEAL REFLUX 06/12/2016 SKYLAR CAMPOS [...] 427.31 ATRIAL FIBRILLATION 06/12/2016 SKYLAR CAMPOS MD Ot 530.81 ESOPHAGEAL REFLUX 06/12/2016 ORENDER DO, LAURA S Ot 250.00 DIAB JOSE WO COMPL, TYPE II OR UNSPEC TY 06/12/2016 ORENDER DO, LAURA S Ot 274.9 GOUT NOS 06/12/2016 LAURA ARAGON DO S Ot E11.9 TYPE 2 DIABETES MELLITUS WITHOUT COMPLIC 06/12/2016 LAURA ARAGON DO S Ot I25.10 ATHSCL HEART DISEASE OF [place] CORONARY 06/12/2016 LAURA ARAGON DO S Ot R53.83 OTHER FATIGUE 06/12/2016 MARÍA SALAMANCA Ot I10 ESSENTIAL (PRIMARY) HYPERTENSION 06/12/2016 MARÍA SALAMANCA Ot I25.10 ATHSCL HEART DISEASE OF [place] CORONARY 06/12/2016 MARÍA SALAMANCA Ot I48.2 CHRONIC ATRIAL FIBRILLATION 06/12/2016 MARÍA SALAMANCA Ot R07.89 OTHER CHEST PAIN 06/12/2016 MARÍA SALAMANCA Ot I10 ESSENTIAL (PRIMARY) HYPERTENSION 06/12/2016 MARÍA SALAMANCA Ot I25.10 ATHSCL HEART DISEASE OF [place] CORONARY 06/12/2016 MARÍA SALAMANCA Ot I48.2 CHRONIC ATRIAL FIBRILLATION 06/12/2016 MARÍA SALAMANCA Ot R07.89 OTHER CHEST PAIN 06/12/2016 Ot E11.65 TYPE 2 DIABETES MELLITUS WITH HYPERGLYCE 06/12/2016 JUAN DIEGO SOTELO CARDIOPULMONARY TECHNICIAN AND EEG TECH Ot E11.9 TYPE 2 DIABETES MELLITUS WITHOUT COMPLIC 06/12/2016 JUAN DIEGO SOTELO CARDIOPULMONARY TECHNICIAN AND EEG TECH Ot I10 ESSENTIAL (PRIMARY) HYPERTENSION 06/12/2016 JUAN DIEGO SOTELO APRN Ot I25.10 ATHSCL HEART DISEASE OF [place] CORONARY 06/12/2016 JUAN DIEGO SOTELO CARDIOPULMONARY TECHNICIAN AND EEG TECH Ot Z12.5 ENCOUNTER FOR SCREENING FOR MALIGNANT NE 08/29/2016 Ot 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 08/29/2016 Ot 722.52 LUMB/LUMBOSAC DISC DEGEN 08/29/2016 Ot 722.52 LUMB/LUMBOSAC DISC DEGEN 08/29/2016 LAURA ARAGON DO Ot 250.00 DIAB JOSE WO COMPL, TYPE II OR UNSPEC TY 08/29/2016 LAURA ARAGON DO S Ot 274.9 GOUT NOS 08/29/2016 ORENDER DO, LAURA S Ot 780.79 OTH MALAISE FATIGUE 08/29/2016 SHIRANDMAURY JOSEPH DOLINE S Ot V76.44 SCREEN MAL NEOP-PROSTATE 08/29/2016 SHIRANDOPAL WINTERS, LAURA S Ot 250.00 DIAB JOSE WO COMPL, TYPE II OR UNSPEC TY 08/29/2016 LAURA ARAGON DO S Ot 780.79 OTH MALAISE FATIGUE 08/29/2016 CECILIA ELY, SAVANNAH Sinclair Ot 709.9 SKIN DISORDER NOS 08/29/2016 CECILIA ELY, SAVANNAH Sinclair Ot V72.81 [id number] CARDIOVASCULAR 08/29/2016 CECILIA ELY, SAVANNAH Sinclair Ot V74.8 SCREEN-BACTERIAL DIS NEC 08/29/2016 BETH ELY, SKYLAR Narvaez Ot 250.00 DIAB JOSE WO COMPL, TYPE II OR UNSPEC TY 08/29/2016 SKYLAR CAMPOS MD J Ot 401.9 HYPERTENSION NOS 08/29/2016 SKYLAR CAMPOS MD J Ot 427.31 ATRIAL FIBRILLATION 08/29/2016 SKYLAR CAMPOS MD J Ot 530.81 ESOPHAGEAL REFLUX 08/29/2016 SKYLAR CAMPOS MD J Ot 250.00 DIAB JOSE WO COMPL, TYPE II OR UNSPEC TY 08/29/2016 CARSNO CAMPOS MDHAR J Ot 401.9 HYPERTENSION NOS 08/29/2016 CARSON CAMPOS MDHAR J Ot 427.31 ATRIAL FIBRILLATION 08/29/2016 SKYLAR CAMPOS MD J Ot 530.81 ESOPHAGEAL REFLUX 08/29/2016 SKYLAR CAMPOS MD J Ot 250.00 DIAB JOSE WO COMPL, TYPE II OR UNSPEC TY 08/29/2016 SKYLAR CAMPOS MD J Ot 401.9 HYPERTENSION NOS 08/29/2016 BETH ELY BASHAR J Ot 427.31 ATRIAL FIBRILLATION 08/29/2016 SKYLAR CAMPOS MD J Ot 530.81 ESOPHAGEAL REFLUX 08/29/2016 SHIRANDER DO, LARUA S Ot 250.00 DIAB JOSE WO COMPL, TYPE II OR UNSPEC TY 08/29/2016 MAURY ARAGON DOLINE S Ot 274.9 GOUT NOS 08/29/2016 LAURA ARAGON DO S Ot E11.9 TYPE 2 DIABETES MELLITUS WITHOUT COMPLIC 08/29/2016 MAURY ARAGON DOLINE S Ot I25.10 ATHSCL HEART DISEASE OF [place] CORONARY 08/29/2016 LAURA ARAGON DO S Ot R53.83 OTHER FATIGUE 08/29/2016 MARÍA SALAMANCA Ot I10 ESSENTIAL (PRIMARY) HYPERTENSION 08/29/2016 MARÍA SALAMANCA Ot I25.10 ATHSCL HEART DISEASE OF [place] CORONARY 08/29/2016 MARÍA SALAMANCA Ot I48.2 CHRONIC ATRIAL FIBRILLATION 08/29/2016 MARÍA SALAMANCA Ot R07.89 OTHER CHEST PAIN 08/29/2016 MARÍA SALAMANCA Ot I10 ESSENTIAL (PRIMARY) HYPERTENSION 08/29/2016 MARÍA SALAMANCA Ot I25.10 ATHSCL HEART DISEASE OF [place] CORONARY 08/29/2016 MARÍA SALAMANCA Ot I48.2 CHRONIC ATRIAL FIBRILLATION 08/29/2016 MARÍA SALAMANCA Ot R07.89 OTHER CHEST PAIN 08/29/2016 Ot E11.65 TYPE 2 DIABETES MELLITUS WITH HYPERGLYCE 08/29/2016 JUAN DIEGO SOTELO CARDIOPULMONARY TECHNICIAN AND EEG TECH Ot E11.9 TYPE 2 DIABETES MELLITUS WITHOUT COMPLIC 08/29/2016 JUAN DIEGO SOTELO CARDIOPULMONARY TECHNICIAN AND EEG TECH Ot I10 ESSENTIAL (PRIMARY) HYPERTENSION 08/29/2016 JUAN DIEGO SOTELO APRN Ot I25.10 ATHSCL HEART DISEASE OF [place] CORONARY 08/29/2016 JUAN DIEGO SOTELO CARDIOPULMONARY TECHNICIAN AND EEG TECH Ot Z12.5 ENCOUNTER FOR SCREENING FOR MALIGNANT NE 08/31/2016 LAURA ARAGON DO S Ot E11.65 TYPE 2 DIABETES MELLITUS WITH HYPERGLYCE 09/10/2016 MAURY ARAGON DOLINE S Ot E11.65 TYPE 2 DIABETES MELLITUS WITH HYPERGLYCE 03/22/2017 ANTHONY ARAGON DOQUELINE S Ot 250.00 DIAB JOSE WO COMPL, TYPE II OR UNSPEC TY 03/22/2017 MAURY ARAGON DOLINE S Ot 274.9 GOUT NOS 03/22/2017 MAURY ARAGON DOLINE S Ot 780.79 OTH MALAISE FATIGUE 03/22/2017 MAURY ARAGON DOLINE S Ot V76.44 SCREEN MAL NEOP-PROSTATE 03/22/2017 ANTHONY ARAGON DOQUELINE S Ot 250.00 DIAB JOSE WO COMPL, TYPE II OR UNSPEC TY 03/22/2017 ORENDER DO, LAURA S Ot 780.79 OTH MALAISE FATIGUE 03/22/2017 CECILIA ELY, SAVANNAH Sinclair Ot 709.9 SKIN DISORDER NOS 03/22/2017 CECILIA ELY, SAVANNAH Sinclair Ot V72.81 ODJD-[id number]-WIZKSRALZ CARDIOVASCULAR 03/22/2017 CECILIA ELY, SAVANNAH Sinclair Ot V74.8 SCREEN-BACTERIAL DIS NEC 03/22/2017 BETH ELY, SKYLAR J Ot 250.00 DIAB JOSE WO COMPL, TYPE II OR UNSPEC TY 03/22/2017 BETH ELY, BASHAR J Ot 401.9 HYPERTENSION NOS 03/22/2017 BETH ELY, BASHAR J Ot 427.31 ATRIAL FIBRILLATION 03/22/2017 BETH ELY, CARSONHAR J Ot 530.81 ESOPHAGEAL REFLUX 03/22/2017 BETH ELY, CARSONHAR J Ot 250.00 DIAB JOSE WO COMPL, TYPE II OR UNSPEC TY 03/22/2017 BETH ELY, BASHAR J Ot 401.9 HYPERTENSION NOS 03/22/2017 BETH ELY, ACRSONHAR J Ot 427.31 ATRIAL FIBRILLATION 03/22/2017 CARSON CAMPOS MDHAR J Ot 530.81 ESOPHAGEAL REFLUX 03/22/2017 BETH ELY, CARSONHAR J Ot 250.00 DIAB JOSE WO COMPL, TYPE II OR UNSPEC TY 03/22/2017 BETH ELY, BASHAR J Ot 401.9 HYPERTENSION NOS 03/22/2017 BETH ELY, BASHAR J Ot 427.31 ATRIAL FIBRILLATION 03/22/2017 BETH ELY, CARSONHAR J Ot 530.81 ESOPHAGEAL REFLUX 03/22/2017 SHIRANDER DO, LAURA S Ot 250.00 DIAB JOSE WO COMPL, TYPE II OR UNSPEC TY 03/22/2017 SHIRANDER DO, LAURA S Ot 274.9 GOUT NOS 03/22/2017 SHIRANDER DO, LAURA S Ot E11.9 TYPE 2 DIABETES MELLITUS WITHOUT COMPLIC 03/22/2017 SHIRANDER DO, LAURA S Ot I25.10 ATHSCL HEART DISEASE OF [place] CORONARY 03/22/2017 DOMITILA WINTERS, LAURA S Ot R53.83 OTHER FATIGUE 03/22/2017 MARÍA SALAMANCA Ot I10 ESSENTIAL (PRIMARY) HYPERTENSION 03/22/2017 MARÍA SALAMANCA Ot I25.10 ATHSCL HEART DISEASE OF [place] CORONARY 03/22/2017 MARÍA SALAMANCA Ot I48.2 CHRONIC ATRIAL FIBRILLATION 03/22/2017 MARÍA SALAMANCA Ot R07.89 OTHER CHEST PAIN 03/22/2017 MARÍA SALAMANCA Ot I10 ESSENTIAL (PRIMARY) HYPERTENSION 03/22/2017 MARÍA SALAMANCA Ot I25.10 ATHSCL HEART DISEASE OF [place] CORONARY 03/22/2017 MARÍA SALAMANCA Ot I48.2 CHRONIC ATRIAL FIBRILLATION 03/22/2017 MARÍA SALAMANCA Ot R07.89 OTHER CHEST PAIN 03/22/2017 Ot E11.65 TYPE 2 DIABETES MELLITUS WITH HYPERGLYCE 03/22/2017 JUAN DIEGO SOTELO CARDIOPULMONARY TECHNICIAN AND EEG TECH Ot E11.9 TYPE 2 DIABETES MELLITUS WITHOUT COMPLIC 03/22/2017 JUAN DIEGO SOTELO CARDIOPULMONARY TECHNICIAN AND EEG TECH Ot I10 ESSENTIAL (PRIMARY) HYPERTENSION 03/22/2017 JUAN DIEGO SOTELO CARDIOPULMONARY TECHNICIAN AND EEG TECH Ot I25.10 ATHSCL HEART DISEASE OF [place] CORONARY 03/22/2017 JUAN DIEGO SOTELO APRN Ot Z12.5 ENCOUNTER FOR SCREENING FOR MALIGNANT NE 03/22/2017 LAURA ARAGON DO Ot E11.65 TYPE 2 DIABETES MELLITUS WITH HYPERGLYCE 03/22/2017 MARÍA SALAMANCA Ot I25.10 ATHSCL HEART DISEASE OF [place] CORONARY 03/25/2017 MARÍA SALAMANCA Ot I10 ESSENTIAL (PRIMARY) HYPERTENSION 03/25/2017 MARÍA SALAMANCA Ot I25.10 ATHSCL HEART DISEASE OF [place] CORONARY 03/25/2017 MRAÍA SALAMANCA Ot I48.2 CHRONIC ATRIAL FIBRILLATION 03/25/2017 MARÍA SALAMANCA Ot I65.23 OCCLUSION AND STENOSIS OF [place] 04/02/2017 MARÍA SALAMANCA Ot I10 ESSENTIAL (PRIMARY) HYPERTENSION 04/02/2017 MARÍA SALAMANCA Ot I25.10 ATHSCL HEART DISEASE OF [place] CORONARY 04/02/2017 MARÍA SALAMANCA Ot I48.2 CHRONIC ATRIAL FIBRILLATION 04/02/2017 MARÍA SALAMANCA Ot I65.23 OCCLUSION AND STENOSIS OF [place]AL [place] 08/07/2017 ORENDER DO, LAURA S Ot 250.00 DIAB JOSE WO COMPL, TYPE II OR UNSPEC TY 08/07/2017 ORENDER DO, LAURA S Ot 274.9 GOUT NOS 08/07/2017 ORENDER DO, LAURA S Ot 780.79 OTH MALAISE FATIGUE 08/07/2017 ORENDER DO, LAURA S Ot V76.44 SCREEN MAL NEOP-PROSTATE 08/07/2017 ORENDER DO, LAURA S Ot 250.00 DIAB JOSE WO COMPL, TYPE II OR UNSPEC TY 08/07/2017 ORENDER DO, LAURA S Ot 780.79 OTH MALAISE FATIGUE 08/07/2017 CECILIA ELY, SAVANNAH Sinclair Ot 709.9 SKIN DISORDER NOS 08/07/2017 CECILIA ELY, SAVANNAH Sinclair Ot V72.81 PWXG-[id number]-[id number] CARDIOVASCULAR 08/07/2017 CECILIA ELY, SAVANNAH Sinclair Ot V74.8 SCREEN-BACTERIAL DIS NEC 08/07/2017 BETH ELY, SKYLAR J Ot 250.00 DIAB JOSE WO COMPL, TYPE II OR UNSPEC TY 08/07/2017 SKYLAR CAMPSO MD J Ot 401.9 HYPERTENSION NOS 08/07/2017 BETH ELY, SKYLAR J Ot 427.31 ATRIAL FIBRILLATION 08/07/2017 SKYLAR [...] MD J Ot 530.81 ESOPHAGEAL REFLUX 08/07/2017 ORENDER DO, LAURA S Ot 250.00 DIAB JOSE WO COMPL, TYPE II OR UNSPEC TY 08/07/2017 ORENDER DO, LAURA S Ot 274.9 GOUT NOS 08/07/2017 SHIRANDER MAURY WINTERSLINE S Ot E11.9 TYPE 2 DIABETES MELLITUS WITHOUT COMPLIC 08/07/2017 LOIER LAURA WINTERS S Ot I25.10 ATHSCL HEART DISEASE OF [place] CORONARY 08/07/2017 LAURA ARAGON DO S Ot R53.83 OTHER FATIGUE 08/07/2017 MARÍA SALAMANCA Ot I10 ESSENTIAL (PRIMARY) HYPERTENSION 08/07/2017 MARÍA SALAMANCA Ot I25.10 ATHSCL HEART DISEASE OF [place] CORONARY 08/07/2017 MARÍA SALAMANCA Ot I48.2 CHRONIC ATRIAL FIBRILLATION 08/07/2017 MARÍA SALAMANCA Ot R07.89 OTHER CHEST PAIN 08/07/2017 MARÍA SALAMANCA Ot I10 ESSENTIAL (PRIMARY) HYPERTENSION 08/07/2017 MARÍA SALAMANCA Ot I25.10 ATHSCL HEART DISEASE OF [place] CORONARY 08/07/2017 MARÍA SALAMANCA Ot I48.2 CHRONIC ATRIAL FIBRILLATION 08/07/2017 MARÍA SALAMANCA Ot R07.89 OTHER CHEST PAIN 08/07/2017 Ot E11.65 TYPE 2 DIABETES MELLITUS WITH HYPERGLYCE 08/07/2017 JUAN DIEGO SOTELO CARDIOPULMONARY TECHNICIAN AND EEG TECH Ot E11.9 TYPE 2 DIABETES MELLITUS WITHOUT COMPLIC 08/07/2017 JUAN DIEGO SOTELO CARDIOPULMONARY TECHNICIAN AND EEG TECH Ot I10 ESSENTIAL (PRIMARY) HYPERTENSION 08/07/2017 JUAN DIEGO SOTELO CARDIOPULMONARY TECHNICIAN AND EEG TECH Ot I25.10 ATHSCL HEART DISEASE OF [place] CORONARY 08/07/2017 JUAN DIEGO SOTELO CARDIOPULMONARY TECHNICIAN AND EEG TECH Ot Z12.5 ENCOUNTER FOR SCREENING FOR MALIGNANT NE 08/07/2017 MAURY ARAGON DOLINE S Ot E11.65 TYPE 2 DIABETES MELLITUS WITH HYPERGLYCE 08/07/2017 MARÍA SALAMANCA Ot I10 ESSENTIAL (PRIMARY) HYPERTENSION 08/07/2017 MARÍA SALAMANCA Ot I25.10 ATHSCL HEART DISEASE OF [place] CORONARY 08/07/2017 MARÍA SALAMANCA Ot I48.2 CHRONIC ATRIAL FIBRILLATION 08/07/2017 MARÍA SALAMANCA Ot I65.23 OCCLUSION AND STENOSIS OF BILATERAL [place] 08/07/2017 ORENDER DO, LAURA S Ot E11.65 TYPE 2 DIABETES MELLITUS WITH HYPERGLYCE 08/07/2017 ORENDER DO, LAURA S Ot E78.2 MIXED HYPERLIPIDEMIA 08/13/2017 ORENDER DO, LAURA S Ot E11.65 TYPE 2 DIABETES MELLITUS WITH HYPERGLYCE 08/13/2017 ORENDER DO, LAURA S Ot E78.5 HYPERLIPIDEMIA, UNSPECIFIED 08/13/2017 ORENDER DO, LAURA S Ot I25.10 ATHSCL HEART DISEASE OF [place] CORONARY 08/13/2017 ORENDER DO, LAURA S Ot M10.9 GOUT, UNSPECIFIED 08/27/2017 ORENDER DO, LAURA S Ot E11.65 TYPE 2 DIABETES MELLITUS WITH HYPERGLYCE 08/27/2017 ORENDER DO, LAURA S Ot E78.5 HYPERLIPIDEMIA, UNSPECIFIED 08/27/2017 ORENDER DO, LAURA S Ot I25.10 ATHSCL HEART DISEASE OF [place] CORONARY 08/27/2017 ORENDER DO, LAURA S Ot M10.9 GOUT, UNSPECIFIED 09/19/2017 SAMMI BEAN MD Ot Z01.818 ENCOUNTER FOR OTHER PREPROCEDURAL EXAMIN 09/19/2017 SAMMI BEAN MD Ot Z12.11 ENCOUNTER FOR SCREENING FOR MALIGNANT NE 09/19/2017 SAMMI BEAN MD Ot Z86.010 PERSONAL HISTORY OF COLONIC POLYPS 09/23/2017 SAMMI BEAN MD Ot Z01.818 ENCOUNTER FOR OTHER PREPROCEDURAL EXAMIN 09/23/2017 SAMMI BEAN MD Ot Z12.11 ENCOUNTER FOR SCREENING FOR MALIGNANT NE 09/23/2017 SAMMI BEAN MD Ot Z86.010 PERSONAL HISTORY OF COLONIC POLYPS 09/23/2017 ORENDER DO, LAURA S Ot Z12.5 ENCOUNTER FOR SCREENING FOR MALIGNANT NE 09/27/2017 SAMMI BEAN MD Ot D12.0 BENIGN NEOPLASM OF [place] 09/27/2017 SAMMI BEAN MD Ot E11.9 TYPE 2 DIABETES MELLITUS WITHOUT COMPLIC 09/27/2017 SAMMI BEAN MD Ot I11.0 HYPERTENSIVE HEART DISEASE WITH HEART FA 09/27/2017 SAMMI BEAN MD Ot I25.10 ATHSCL HEART DISEASE OF [place] CORONARY 09/27/2017 SAMMI BEAN MD, Ot I48.91 UNSPECIFIED ATRIAL FIBRILLATION 09/27/2017 SAMMI BEAN MD, Ot I50.9 HEART FAILURE, UNSPECIFIED 09/27/2017 SAMMI BEAN MD, Ot K21.0 GASTRO-ESOPHAGEAL REFLUX DISEASE WITH ES 09/27/2017 SAMMI BEAN MD, Ot K22.2 ESOPHAGEAL OBSTRUCTION 09/27/2017 SAMMI BEAN MD, Ot K29.70 GASTRITIS, UNSPECIFIED, WITHOUT BLEEDING 09/27/2017 SAMMI BEAN MD, Ot K31.7 POLYP OF STOMACH AND DUODENUM 09/27/2017 SAMMI BEAN MD, Ot K44.9 DIAPHRAGMATIC HERNIA WITHOUT OBSTRUCTION 09/27/2017 SAMMI BEAN MD, Ot K57.30 DVRTCLOS OF LG INT W/O PERFORATION OR AB 09/27/2017 SAMMI BEAN MD, Ot K64.1 SECOND DEGREE HEMORRHOIDS 09/27/2017 SAMMI BEAN MD, Ot Z12.11 ENCOUNTER FOR SCREENING FOR MALIGNANT NE 09/27/2017 SAMMI BEAN MD, Ot Z79.01 ASSISTED (CURRENT) USE OF ANTICOAGULANT 09/27/2017 SAMMI BEAN MD, Ot Z79.02 CUSTOM SHOEMAKER (CURRENT) USE OF ANTITHROMBOTI 09/27/2017 SAMMI BEAN MD, Ot Z79.84 CUSTOM SHOEMAKER (CURRENT) USE OF ORAL HYPOGLYC 09/27/2017 SAMMI BEAN MD, Ot Z79.899 OTHER ASSISTED (CURRENT) DRUG THERAPY 09/27/2017 SAMMI BEAN MD, Ot Z86.010 PERSONAL HISTORY OF COLONIC POLYPS 09/30/2017 VINCE DAILEY Ot E11.9 TYPE 2 DIABETES MELLITUS WITHOUT COMPLIC 09/30/2017 VINCE DAILEY Ot F32.9 MAJOR DEPRESSIVE DISORDER, SINGLE EPISOD 09/30/2017 VINCE DAILEY Ot F41.9 ANXIETY DISORDER, UNSPECIFIED 09/30/2017 VINCE DAILEY Ot I10 ESSENTIAL (PRIMARY) HYPERTENSION 09/30/2017 VINCE DAILEY Ot I25.10 ATHSCL HEART DISEASE OF [place] CORONARY 09/30/2017 VINCE DAILEY Ot I48.91 UNSPECIFIED ATRIAL FIBRILLATION 09/30/2017 ASHLIE, VINCE PATIENT CARE ASSOCIATE Ot K21.9 GASTRO- ESOPHAGEAL REFLUX DISEASE WITHOUT 09/30/2017 ASHLIE, VINCE PATIENT CARE ASSOCIATE Ot K92.1 MELENA 09/30/2017 ASHLIEVINCE OlsonP Ot N40.0 BENIGN PROSTATIC HYPERPLASIA WITHOUT LOW 09/30/2017 ASHLIEVINCE Olson PATIENT CARE ASSOCIATE Ot Z79.01 CUSTOM SHOEMAKER (CURRENT) USE OF ANTICOAGULANT 09/30/2017 ASHLIEVINCE OlsonP Ot Z79.02 ASSISTED (CURRENT) USE OF ANTITHROMBOTI 09/30/2017 ASHLIEVINCE OlsonP Ot Z79.84 CUSTOM SHOEMAKER (CURRENT) USE OF ORAL HYPOGLYC 09/30/2017 ASHLIEVINCE OlsonP Ot Z82.49 FAMILY HX OF ISCHEM HEART DIS AND OTH DI 09/30/2017 VINCE DAILEYP Ot Z85.038 PERSONAL HISTORY OF MALIGNANT NEOPLASM O 09/30/2017 VINCE DAILEYP Ot Z85.828 PERSONAL HISTORY OF OTHER MALIGNANT NEOP 09/30/2017 VINCE DAILEYP Ot Z87.19 PERSONAL HISTORY OF OTHER DISEASES OF TH 09/30/2017 VINCE DAILEYP Ot Z98.890 OTHER SPECIFIED POSTPROCEDURAL STATES 10/02/2017 ASHLIE VINCE PATIENT CARE ASSOCIATE Ot E11.9 TYPE 2 DIABETES MELLITUS WITHOUT COMPLIC 10/02/2017 VINCE DAILEYP Ot F32.9 MAJOR DEPRESSIVE DISORDER, SINGLE EPISOD 10/02/2017 ASHLIE VINCE PATIENT CARE ASSOCIATE Ot F41.9 ANXIETY DISORDER, UNSPECIFIED 10/02/2017 ASHLIE VINCE PATIENT CARE ASSOCIATE Ot I10 ESSENTIAL (PRIMARY) HYPERTENSION 10/02/2017 VINCE DAILEYP Ot I25.10 ATHSCL HEART DISEASE OF [place] CORONARY 10/02/2017 ASHLIE VINCE PATIENT CARE ASSOCIATE Ot I48.91 UNSPECIFIED ATRIAL FIBRILLATION 10/02/2017 VINCE DAILEYP Ot K21.9 GASTRO- ESOPHAGEAL REFLUX DISEASE WITHOUT 10/02/2017 ASHLIEVINCE OlsonP Ot K92.1 MELENA 10/02/2017 ASHLIEVINCE OlsonP Ot N40.0 BENIGN PROSTATIC HYPERPLASIA WITHOUT LOW 10/02/2017 VINCE DAILEYP Ot Z79.01 CUSTOM SHOEMAKER (CURRENT) USE OF ANTICOAGULANT 10/02/2017 VINCE DAILEYP Ot Z79.02 CUSTOM SHOEMAKER (CURRENT) USE OF ANTITHROMBOTI 10/02/2017 VINCE DAILEY Ot Z79.84 CUSTOM SHOEMAKER (CURRENT) USE OF ORAL HYPOGLYC 10/02/2017 VINCE DAILEY Ot Z82.49 FAMILY HX OF ISCHEM HEART DIS AND OTH DI 10/02/2017 VINCE DAILEY Ot Z85.038 PERSONAL HISTORY OF MALIGNANT NEOPLASM O 10/02/2017 VINCE DAILEY Ot Z85.828 PERSONAL HISTORY OF OTHER MALIGNANT NEOP 10/02/2017 VINCE DAILEY Ot Z87.19 PERSONAL HISTORY OF OTHER DISEASES OF TH 10/02/2017 VINCE DAILEY Ot Z98.890 OTHER SPECIFIED POSTPROCEDURAL STATES 10/02/2017 OREALLAN DO, LAURA S Ot Z12.5 ENCOUNTER FOR SCREENING FOR MALIGNANT NE 10/07/2017 ANITA CONN MD Ot E11.9 TYPE 2 DIABETES MELLITUS WITHOUT COMPLIC 10/07/2017 ANITA CONN MD Ot E78.5 HYPERLIPIDEMIA, UNSPECIFIED 10/07/2017 ANITA CONN MD Ot F32.9 MAJOR DEPRESSIVE DISORDER, SINGLE EPISOD 10/07/2017 ANITA CONN MD Ot F41.9 ANXIETY DISORDER, UNSPECIFIED 10/07/2017 ANITA CONN MD Ot I10 ESSENTIAL (PRIMARY) HYPERTENSION 10/07/2017 ANITA CONN MD Ot I25.10 ATHSCL HEART DISEASE OF [place] CORONARY 10/07/2017 ANITA CONN MD Ot I48.0 PAROXYSMAL ATRIAL FIBRILLATION 10/07/2017 ANITA CONN MD Ot I95.9 HYPOTENSION, UNSPECIFIED 10/07/2017 ANITA CONN MD Ot M54.2 CERVICALGIA 10/07/2017 ANITA CONN MD Ot R07.9 CHEST PAIN, UNSPECIFIED 10/07/2017 ANITA CONN MD Ot R42 DIZZINESS AND GIDDINESS 10/07/2017 ANITA CONN MD Ot E11.9 TYPE 2 DIABETES MELLITUS WITHOUT COMPLIC 10/07/2017 ANITA CONN MD Ot E78.5 HYPERLIPIDEMIA, UNSPECIFIED 10/07/2017 ANITA CONN MD Ot F32.9 MAJOR DEPRESSIVE DISORDER, SINGLE EPISOD 10/07/2017 ANITA CONN MD Ot F41.9 ANXIETY DISORDER, UNSPECIFIED 10/07/2017 ANITA CONN MD Ot I10 ESSENTIAL (PRIMARY) HYPERTENSION 10/07/2017 ANITA CONN MD Ot I25.10 ATHSCL HEART DISEASE OF [place] CORONARY 10/07/2017 SENIA ELY, ANITA Markham Ot I48.0 PAROXYSMAL ATRIAL FIBRILLATION 10/07/2017 ANITA CONN MD Ot I95.9 HYPOTENSION, UNSPECIFIED 10/07/2017 ANITA CONN MD Ot M54.2 CERVICALGIA 10/07/2017 ANITA CONN MD Ot R07.9 CHEST PAIN, UNSPECIFIED 10/07/2017 ANITA CONN MD Ot R42 DIZZINESS AND GIDDINESS 10/19/2017 SOHAIL OREILLY APRN Ot E11.9 TYPE 2 DIABETES MELLITUS WITHOUT COMPLIC 10/19/2017 SOHAIL OREILLY APRN Ot F32.9 MAJOR DEPRESSIVE DISORDER, SINGLE EPISOD 10/19/2017 SOHAIL OREILLY APRN Ot F41.9 ANXIETY DISORDER, UNSPECIFIED 10/19/2017 SOHAIL OREILLY APRN Ot I10 ESSENTIAL (PRIMARY) HYPERTENSION 10/19/2017 SOHAIL OREILLY APRN Ot I25.10 ATHSCL HEART DISEASE OF [place] CORONARY 10/19/2017 SOHAIL OREILLY APRN Ot I48.91 UNSPECIFIED ATRIAL FIBRILLATION 10/19/2017 SOHAIL OREILLY APRN Ot K21.9 GASTRO-ESOPHAGEAL REFLUX DISEASE WITHOUT 10/19/2017 SOHAIL OREILLY APRN Ot M06.9 RHEUMATOID ARTHRITIS, UNSPECIFIED 10/19/2017 SOHAIL OREILLY APRN Ot N40.0 BENIGN PROSTATIC HYPERPLASIA WITHOUT LOW 10/19/2017 SOHAIL OREILLY APRN Ot S02.92XA UNSP FRACTURE OF FACIAL BONES, INIT FOR 10/19/2017 SOHAIL OREILLY APRN Ot S09.93XA UNSPECIFIED INJURY OF FACE, INITIAL ENCO 10/19/2017 SOHAIL OREILLY APRN Ot W10.9XXA FALL (ON) (FROM) UNSPECIFIED STAIRS AND 10/19/2017 SOHAIL OREILLY APRN Ot Z79.01 ASSISTED (CURRENT) USE OF ANTICOAGULANT 10/19/2017 SOHAIL OREILLY APRN Ot Z79.02 ASSISTED (CURRENT) USE OF ANTITHROMBOTI 10/19/2017 SOHAIL OREILLY APRN Ot Z79.84 ASSISTED (CURRENT) USE OF ORAL HYPOGLYC 10/19/2017 SOHAIL OREILLY APRN Ot Z85.038 PERSONAL HISTORY OF MALIGNANT NEOPLASM O 10/19/2017 SOHAIL OREILLY APRN Ot Z85.828 PERSONAL HISTORY OF OTHER MALIGNANT NEOP 10/19/2017 SOHAIL OREILLY APRN Ot Z87.891 PERSONAL HISTORY OF NICOTINE DEPENDENCE 10/19/2017 SOHAIL OREILLY APRN Ot Z98.890 OTHER SPECIFIED POSTPROCEDURAL STATES 10/21/2017 SOHAIL OREILLY APRN Ot E11.9 TYPE 2 DIABETES MELLITUS WITHOUT COMPLIC 10/21/2017 SOHAIL OREILLY APRN Ot F32.9 MAJOR DEPRESSIVE DISORDER, SINGLE EPISOD 10/21/2017 SOHAIL OREILLY APRN Ot F41.9 ANXIETY DISORDER, UNSPECIFIED 10/21/2017 SOHAIL OREILLY APRN Ot I10 ESSENTIAL (PRIMARY) HYPERTENSION 10/21/2017 SOHAIL OREILLY APRN Ot I25.10 ATHSCL HEART DISEASE OF [place] CORONARY 10/21/2017 SOHAIL OREILLY APRN Ot I48.91 UNSPECIFIED ATRIAL FIBRILLATION 10/21/2017 SOHAIL OREILLY APRN Ot K21.9 GASTRO-ESOPHAGEAL REFLUX DISEASE WITHOUT 10/21/2017 SOHAIL OREILLY APRN Ot M06.9 RHEUMATOID ARTHRITIS, UNSPECIFIED 10/21/2017 SOHAIL OREILLY APRN Ot N40.0 BENIGN PROSTATIC HYPERPLASIA WITHOUT LOW 10/21/2017 SOHAIL OREILLY APRN Ot S02.92XA UNSP FRACTURE OF FACIAL BONES, INIT FOR 10/21/2017 SOHAIL OREILLY APRN Ot S09.93XA UNSPECIFIED INJURY OF FACE, INITIAL ENCO 10/21/2017 SOHALI OREILLY APRN Ot W10.9XXA FALL (ON) (FROM) UNSPECIFIED STAIRS AND 10/21/2017 SOHAIL OREILLY APRN Ot Z79.01 CUSTOM SHOEMAKER (CURRENT) USE OF ANTICOAGULANT 10/21/2017 SOHAIL OREILLY APRN Ot Z79.02 CUSTOM SHOEMAKER (CURRENT) USE OF ANTITHROMBOTI 10/21/2017 SOHAIL OREILLY APRN Ot Z79.84 CUSTOM SHOEMAKER (CURRENT) USE OF ORAL HYPOGLYC 10/21/2017 SOHAIL OREILLY APRN Ot Z85.038 PERSONAL HISTORY OF MALIGNANT NEOPLASM O 10/21/2017 SOHAIL OREILLY APRN Ot Z85.828 PERSONAL HISTORY OF OTHER MALIGNANT NEOP 10/21/2017 SOHAIL OREILLY APRN Ot Z87.891 PERSONAL HISTORY OF NICOTINE DEPENDENCE 10/21/2017 SOHAIL OREILLY APRN Ot Z98.890 OTHER SPECIFIED POSTPROCEDURAL STATES 11/08/2017 CHAS CHUA MD Ot E11.9 TYPE 2 DIABETES MELLITUS WITHOUT COMPLIC 11/08/2017 CHAS CHUA MD Ot F32.9 MAJOR DEPRESSIVE DISORDER, SINGLE EPISOD 11/08/2017 CHAS CHUA MD Ot F41.9 ANXIETY DISORDER, UNSPECIFIED 11/08/2017 CHAS CHUA MD Ot I10 ESSENTIAL (PRIMARY) HYPERTENSION 11/08/2017 CHAS CHUA MD Ot I25.10 ATHSCL HEART DISEASE OF [place] CORONARY 11/08/2017 CHAS CHUA MD, Ot I48.0 PAROXYSMAL ATRIAL FIBRILLATION 11/08/2017 CHAS CHUA MD Ot K21.9 GASTRO-ESOPHAGEAL REFLUX DISEASE WITHOUT 11/08/2017 CHAS CHUA MD Ot R06.00 DYSPNEA, UNSPECIFIED 11/08/2017 CHAS CHUA MD Ot R06.02 SHORTNESS OF BREATH 11/08/2017 CHAS CHUA MD Ot Z79.01 ASSISTED (CURRENT) USE OF ANTICOAGULANT 11/08/2017 CHAS CHUA MD Ot Z79.02 CUSTOM SHOEMAKER (CURRENT) USE OF ANTITHROMBOTI 11/08/2017 CHAS CHUA MD Ot Z79.84 CUSTOM SHOEMAKER (CURRENT) USE OF ORAL HYPOGLYC 11/08/2017 CHAS CHUA MD Ot Z82.49 FAMILY HX OF ISCHEM HEART DIS AND OTH DI 11/08/2017 CHAS CHUA MD Ot Z85.038 PERSONAL HISTORY OF MALIGNANT NEOPLASM O 11/08/2017 CHAS CHUA MD Ot Z85.828 PERSONAL HISTORY OF OTHER MALIGNANT NEOP 11/08/2017 CHAS CHUA MD Ot Z86.010 PERSONAL HISTORY OF COLONIC POLYPS 11/08/2017 CHAS CHUA MD Ot Z87.19 PERSONAL HISTORY OF OTHER DISEASES OF TH 11/08/2017 CHAS CHUA MD Ot Z87.891 PERSONAL HISTORY OF NICOTINE DEPENDENCE 11/11/2017 CHAS CHUA MD Ot E11.9 TYPE 2 DIABETES MELLITUS WITHOUT COMPLIC 11/11/2017 CHAS CHUA MD, Ot F32.9 MAJOR DEPRESSIVE DISORDER, SINGLE EPISOD 11/11/2017 CHAS CHUA MD, Ot F41.9 ANXIETY DISORDER, UNSPECIFIED 11/11/2017 CHAS CHUA MD Ot I10 ESSENTIAL (PRIMARY) HYPERTENSION 11/11/2017 CHAS CHUA MD Ot I25.10 ATHSCL HEART DISEASE OF [place] CORONARY 11/11/2017 CHAS CHUA MD Ot I48.0 PAROXYSMAL ATRIAL FIBRILLATION 11/11/2017 CHAS CHUA MD, Ot K21.9 GASTRO-ESOPHAGEAL REFLUX DISEASE WITHOUT 11/11/2017 CHAS CHUA MD Ot R06.00 DYSPNEA, UNSPECIFIED 11/11/2017 CHAS CHUA MD, Ot R06.02 SHORTNESS OF BREATH 11/11/2017 CHAS CHUA MD Ot Z79.01 CUSTOM SHOEMAKER (CURRENT) USE OF ANTICOAGULANT 11/11/2017 CHAS CHUA MD, Ot Z79.02 CUSTOM SHOEMAKER (CURRENT) USE OF ANTITHROMBOTI 11/11/2017 CHAS CHUA MD, Ot Z79.84 CUSTOM SHOEMAKER (CURRENT) USE OF ORAL HYPOGLYC 11/11/2017 CHAS CHUA MD Ot Z82.49 FAMILY HX OF [place] HEART DIS AND OTH DI 11/11/2017 CHAS CHUA MD, Ot Z85.038 PERSONAL HISTORY OF MALIGNANT NEOPLASM O 11/11/2017 CHAS CHUA MD Ot Z85.828 PERSONAL HISTORY OF OTHER MALIGNANT NEOP 11/11/2017 CHAS CHUA MD Ot Z86.010 PERSONAL HISTORY OF COLONIC POLYPS 11/11/2017 CHAS CHUA MD Ot Z87.19 PERSONAL HISTORY OF OTHER DISEASES OF TH 11/11/2017 CHAS CHUA MD, Ot Z87.891 PERSONAL HISTORY OF NICOTINE DEPENDENCE 01/10/2018 PREMA VAZQUEZ APRN Ot E11.9 TYPE 2 DIABETES MELLITUS WITHOUT COMPLIC 01/10/2018 PREMA VAZQUEZ APRN Ot E78.5 HYPERLIPIDEMIA, UNSPECIFIED 02/13/2018 Ot 786.09 02/13/2018 Ot 786.50 02/13/2018 Ot 569.3 02/13/2018 Ot 787.3 02/13/2018 Ot 789.00 02/13/2018 Ot V10.05 02/13/2018 Ot V81.5 02/13/2018 Ot 173.3 02/13/2018 Ot 709.9 02/13/2018 Ot V72.81 02/13/2018 Ot V72.83 02/13/2018 Ot 574.20 CHOLELITHIASIS NOS 02/13/2018 Ot 250.00 DIAB JOSE WO COMPL, TYPE II OR UNSPEC TY 02/13/2018 Ot 272.4 HYPERLIPIDEMIA NEC/NOS 02/13/2018 Ot 780.79 OTH MALAISE FATIGUE 02/13/2018 Ot 789.00 ABDOMINAL PAIN, UNSPECIFIED SITE 02/13/2018 Ot 211.3 BENIGN NEOPLASM LG BOWEL 02/13/2018 Ot 574.20 CHOLELITHIASIS NOS 02/13/2018 Ot V72.63 PRE-PROCEDURAL LABORATORY EXAMINATION 02/13/2018 Ot V74.8 SCREEN-BACTERIAL DIS NEC 02/13/2018 Ot 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 02/13/2018 Ot 722.52 LUMB/LUMBOSAC DISC DEGEN 02/13/2018 Ot 722.52 LUMB/LUMBOSAC DISC DEGEN 02/13/2018 ORENDER DO, LAURA S Ot 250.00 DIAB JOSE WO COMPL, TYPE II OR UNSPEC TY 02/13/2018 ORENDER DO, LAURA S Ot 274.9 GOUT NOS 02/13/2018 ORENDER DO, LAURA S Ot 780.79 OTH MALAISE FATIGUE 02/13/2018 ORENDER DO, LAURA S Ot V76.44 SCREEN MAL NEOP-PROSTATE 02/13/2018 ORENDER DO, LAURA S Ot 250.00 DIAB JOSE WO COMPL, TYPE II OR UNSPEC TY 02/13/2018 ORENDER DO, LAURA S Ot 780.79 OTH MALAISE FATIGUE 02/13/2018 CECILIA ELY, SAVANNAH Sinclair Ot 709.9 SKIN DISORDER NOS 02/13/2018 CECILIA ELY, SAVANNAH Sinclair Ot V72.81 [id number] CARDIOVASCULAR 02/13/2018 CECILIA ELY, SAVANNAH Sinclair Ot V74.8 SCREEN-BACTERIAL DIS NEC 02/13/2018 BETH ELY, SKYLAR Narvaez Ot 250.00 DIAB JOSE WO COMPL, TYPE II OR UNSPEC TY 02/13/2018 BETH ELY, SKYLAR Narvaez Ot 401.9 HYPERTENSION NOS 02/13/2018 SKYLAR CAMPOS MD Ot 427.31 ATRIAL FIBRILLATION 02/13/2018 BETH ELY, SKYLAR J Ot 530.81 ESOPHAGEAL REFLUX 02/13/2018 BETH ELY, SKYLAR J Ot 250.00 DIAB JOSE WO COMPL, TYPE II OR UNSPEC TY 02/13/2018 BETH ELY, BASJONO J Ot 401.9 HYPERTENSION NOS 02/13/2018 BETH ELY, SKYLAR J Ot 427.31 ATRIAL FIBRILLATION 02/13/2018 SKYLAR CAMPOS MD J Ot 530.81 ESOPHAGEAL REFLUX 02/13/2018 BETH ELY, SKYLAR J Ot 250.00 DIAB JOSE WO COMPL, TYPE II OR UNSPEC TY 02/13/2018 BETH ELY, SKYLAR J Ot 401.9 HYPERTENSION NOS 02/13/2018 BETH ELY, SKYLAR J Ot 427.31 ATRIAL FIBRILLATION 02/13/2018 BETH ELY, SKYLAR J Ot 530.81 ESOPHAGEAL REFLUX 02/13/2018 ORENDER DO, LAURA S Ot 250.00 DIAB JOSE WO COMPL, TYPE II OR UNSPEC TY 02/13/2018 ORENDER DO, LAURA S Ot 274.9 GOUT NOS 02/13/2018 ORENDER DO, LAURA S Ot E11.9 TYPE 2 DIABETES MELLITUS WITHOUT COMPLIC 02/13/2018 ORENDER DO, LAURA S Ot I25.10 ATHSCL HEART DISEASE OF [place] CORONARY 02/13/2018 DOMITILA WINTERS, LAURA S Ot R53.83 OTHER FATIGUE 02/13/2018 MARÍA SALAMANCA Ot I10 ESSENTIAL (PRIMARY) HYPERTENSION 02/13/2018 MARÍA SALAMANCA Ot I25.10 ATHSCL HEART DISEASE OF [place] CORONARY 02/13/2018 MARÍA SALAMANCA Ot I48.2 CHRONIC ATRIAL FIBRILLATION 02/13/2018 MARÍA SALAMANCA Ot R07.89 OTHER CHEST PAIN 02/13/2018 MARÍA SALAMANCA Ot I10 ESSENTIAL (PRIMARY) HYPERTENSION 02/13/2018 MARÍA SALAMANCA Ot I25.10 ATHSCL HEART DISEASE OF [place] CORONARY 02/13/2018 MARÍA SALAMANCA Ot I48.2 CHRONIC ATRIAL FIBRILLATION 02/13/2018 MARÍA SALAMANCA Ot R07.89 OTHER CHEST PAIN 02/13/2018 Ot E11.65 TYPE 2 DIABETES MELLITUS WITH HYPERGLYCE 02/13/2018 JUAN DIEGO SOTELO Cora CARDIOPULMONARY TECHNICIAN AND EEG TECH Ot E11.9 TYPE 2 DIABETES MELLITUS WITHOUT COMPLIC 02/13/2018 MEGHANA SOTELOYASHIRA Shepherd CARDIOPULMONARY TECHNICIAN AND EEG TECH Ot I10 ESSENTIAL (PRIMARY) HYPERTENSION 02/13/2018 CHARLY SOTELODeep Shepherd APRN Ot I25.10 ATHSCL HEART DISEASE OF [place] CORONARY 02/13/2018 CHARLY SOTELODeep Shepherd APRN Ot Z12.5 ENCOUNTER FOR SCREENING FOR MALIGNANT NE 02/13/2018 SHIRANDER DO, LAURA S Ot E11.65 TYPE 2 DIABETES MELLITUS WITH HYPERGLYCE 02/13/2018 MARÍA SALAMANCA Ot I10 ESSENTIAL (PRIMARY) HYPERTENSION 02/13/2018 MARÍA SALAMANCA Ot I25.10 ATHSCL HEART DISEASE OF [place] CORONARY 02/13/2018 MARÍA SALAMANCA Ot I48.2 CHRONIC ATRIAL FIBRILLATION 02/13/2018 MARÍA SALAMANCA Ot I65.23 OCCLUSION AND STENOSIS OF BILATERAL [place] 02/13/2018 SHIRANDER DO, LAURA S Ot E11.65 TYPE 2 DIABETES MELLITUS WITH HYPERGLYCE 02/13/2018 SHIRANDER DO, LAURA S Ot E78.5 HYPERLIPIDEMIA, UNSPECIFIED 02/13/2018 SHIRANDER DO, LAURA S Ot I25.10 ATHSCL HEART DISEASE OF [place] CORONARY 02/13/2018 SHIRANDER DO, LAURA S Ot M10.9 GOUT, UNSPECIFIED 02/13/2018 SHIRANDER , LAURA S Ot Z12.5 ENCOUNTER FOR SCREENING FOR MALIGNANT NE 02/13/2018 PREMA VAZQUEZ CARDIOPULMONARY TECHNICIAN AND EEG TECH Ot E11.9 TYPE 2 DIABETES MELLITUS WITHOUT COMPLIC 02/13/2018 PREMA VAZQUEZ CARDIOPULMONARY TECHNICIAN AND EEG TECH Ot E78.5 HYPERLIPIDEMIA, UNSPECIFIED 02/14/2018 Ot 786.09 02/14/2018 Ot 786.50 02/14/2018 Ot 569.3 02/14/2018 Ot 787.3 02/14/2018 Ot 789.00 02/14/2018 Ot V10.05 02/14/2018 Ot V81.5 02/14/2018 Ot 173.3 02/14/2018 Ot 709.9 02/14/2018 Ot V72.81 02/14/2018 Ot V72.83 02/14/2018 Ot 574.20 CHOLELITHIASIS NOS 02/14/2018 Ot 250.00 DIAB JOSE WO COMPL, TYPE II OR UNSPEC TY 02/14/2018 Ot 272.4 HYPERLIPIDEMIA NEC/NOS 02/14/2018 Ot 780.79 OTH MALAISE FATIGUE 02/14/2018 Ot 789.00 ABDOMINAL PAIN, UNSPECIFIED SITE 02/14/2018 Ot 211.3 BENIGN NEOPLASM LG BOWEL 02/14/2018 Ot 574.20 CHOLELITHIASIS NOS 02/14/2018 Ot V72.63 PRE-PROCEDURAL LABORATORY EXAMINATION 02/14/2018 Ot V74.8 SCREEN-BACTERIAL DIS NEC 02/14/2018 Ot 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 02/14/2018 Ot 722.52 LUMB/LUMBOSAC DISC DEGEN 02/14/2018 Ot 722.52 LUMB/LUMBOSAC DISC DEGEN 02/14/2018 JUAN DIEGO SOTELO APRN Ot E11.9 TYPE 2 DIABETES MELLITUS WITHOUT COMPLIC 02/14/2018 JUAN DIEGO SOTELO APRN Ot I10 ESSENTIAL (PRIMARY) HYPERTENSION 02/14/2018 JUAN DIEGO SOTELO APRN Ot I25.10 ATHSCL HEART DISEASE OF [place] CORONARY 02/14/2018 JUAN DIEGO SOTELO APRN Ot Z12.5 ENCOUNTER FOR SCREENING FOR MALIGNANT NE 02/14/2018 MAURY ARAGON DOLINE S Ot E11.65 TYPE 2 DIABETES MELLITUS WITH HYPERGLYCE 02/14/2018 MARÍA SALAMANCA Ot I10 ESSENTIAL (PRIMARY) HYPERTENSION 02/14/2018 MARÍA SALAMANCA Ot I25.10 ATHSCL HEART DISEASE OF [place] CORONARY 02/14/2018 MARÍA SALAMANCA Ot I48.2 CHRONIC ATRIAL FIBRILLATION 02/14/2018 MARÍA SALAMANCA Ot I65.23 OCCLUSION AND STENOSIS OF BILATERAL [place] 02/14/2018 MAURY ARAGON DOLINE S Ot E11.65 TYPE 2 DIABETES MELLITUS WITH HYPERGLYCE 02/14/2018 MAURY ARAGON DOLINE S Ot E78.5 HYPERLIPIDEMIA, UNSPECIFIED 02/14/2018 MAURY ARAGON DOLINE S Ot I25.10 ATHSCL HEART DISEASE OF [place] CORONARY 02/14/2018 ORENDER DO, LAURA S Ot M10.9 GOUT, UNSPECIFIED 02/14/2018 ORENDER DO, LAURA S Ot Z12.5 ENCOUNTER FOR SCREENING FOR MALIGNANT NE 02/14/2018 PREMA VAZQUEZ CARDIOPULMONARY TECHNICIAN AND EEG TECH Ot E11.9 TYPE 2 DIABETES MELLITUS WITHOUT COMPLIC 02/14/2018 GEORGEERICAALBERTO Pineda CARDIOPULMONARY TECHNICIAN AND EEG TECH Ot E78.5 HYPERLIPIDEMIA, UNSPECIFIED 02/14/2018 ORENDER DO, LAURA S Ot 250.00 DIAB JOSE WO COMPL, TYPE II OR UNSPEC TY 02/14/2018 ORENDER DO, LAURA S Ot 274.9 GOUT NOS 02/14/2018 ORENDER DO, LAURA S Ot 780.79 OTH MALAISE FATIGUE 02/14/2018 ORENDER DO, LAURA S Ot V76.44 SCREEN MAL NEOP-PROSTATE 02/14/2018 ORENDER DO, LAURA S Ot 250.00 DIAB JOSE WO COMPL, TYPE II OR UNSPEC TY 02/14/2018 ORENDER DO, LAURA S Ot 780.79 OTH MALAISE FATIGUE 02/14/2018 CECILIA ELY, SAVANNAH Sinclair Ot 709.9 SKIN DISORDER NOS 02/14/2018 CECILIA ELY, SAVANNAH Sinclair Ot V72.81 [id number] CARDIOVASCULAR 02/14/2018 CECILIA ELY, SAVANNAH Sinclair Ot V74.8 SCREEN-BACTERIAL DIS NEC 02/14/2018 BETH ELY, SKYLAR Narvaez Ot 250.00 DIAB JOSE WO COMPL, TYPE II OR UNSPEC TY 02/14/2018 SKYLAR CAMPOS MD Ot 401.9 HYPERTENSION NOS 02/14/2018 BETH ELY, SKYLAR Narvaez Ot 427.31 ATRIAL FIBRILLATION 02/14/2018 SKYLAR CAMPOS MD Ot 530.81 ESOPHAGEAL REFLUX 02/14/2018 BETH ELY, SKYLAR J Ot 250.00 DIAB JOSE WO COMPL, TYPE II OR UNSPEC TY 02/14/2018 SKYLAR CAMPOS MD J Ot 401.9 HYPERTENSION NOS 02/14/2018 BETH ELY, SKYLAR J Ot 427.31 ATRIAL FIBRILLATION 02/14/2018 BETH ELY, SKYLAR J Ot 530.81 ESOPHAGEAL REFLUX 02/14/2018 BETH ELY, SKYLAR J Ot 250.00 DIAB JOSE WO COMPL, TYPE II OR UNSPEC TY 02/14/2018 BETH ELY, SKYLAR Narvaez Ot 401.9 HYPERTENSION NOS 02/14/2018 BETH ELY, SKYLAR Narvaez Ot 427.31 ATRIAL FIBRILLATION 02/14/2018 SKYLAR CAMPOS MD Ot 530.81 ESOPHAGEAL REFLUX 02/14/2018 ORENDER DO, LAURA S Ot 250.00 DIAB JOSE WO COMPL, TYPE II OR UNSPEC TY 02/14/2018 ORENDER DO, LAURA S Ot 274.9 GOUT NOS 02/14/2018 ORENDER DO, LAURA S Ot E11.9 TYPE 2 DIABETES MELLITUS WITHOUT COMPLIC 02/14/2018 ORENDER DO, LAURA S Ot I25.10 ATHSCL HEART DISEASE OF [place] CORONARY 02/14/2018 ORENDER DO, LAURA S Ot R53.83 OTHER FATIGUE 02/14/2018 MARÍA SALAMANCA Ot I10 ESSENTIAL (PRIMARY) HYPERTENSION 02/14/2018 MARÍA SALAMANCA Ot I25.10 ATHSCL HEART DISEASE OF [place] CORONARY 02/14/2018 MARÍA SALAMANCA Ot I48.2 CHRONIC ATRIAL FIBRILLATION 02/14/2018 MARÍA SALAMANCA Ot R07.89 OTHER CHEST PAIN 02/14/2018 MARÍA SALAMANCA Ot I10 ESSENTIAL (PRIMARY) HYPERTENSION 02/14/2018 MARÍA SALAMANCA Ot I25.10 ATHSCL HEART DISEASE OF [place] CORONARY 02/14/2018 MARÍA SALAMANCA Ot I48.2 CHRONIC ATRIAL FIBRILLATION 02/14/2018 MARÍA SALAMANCA Ot R07.89 OTHER CHEST PAIN 02/14/2018 Ot E11.65 TYPE 2 DIABETES MELLITUS WITH HYPERGLYCE 02/14/2018 JUAN DIEGO SOTELO CARDIOPULMONARY TECHNICIAN AND EEG TECH Ot E11.9 TYPE 2 DIABETES MELLITUS WITHOUT COMPLIC 02/14/2018 JUAN DIEGO SOTELO CARDIOPULMONARY TECHNICIAN AND EEG TECH Ot I10 ESSENTIAL (PRIMARY) HYPERTENSION 02/14/2018 JUAN DIEGO SOTELO CARDIOPULMONARY TECHNICIAN AND EEG TECH Ot I25.10 ATHSCL HEART DISEASE OF [place] CORONARY 02/14/2018 JUAN DIEGO SOTELO CARDIOPULMONARY TECHNICIAN AND EEG TECH Ot Z12.5 ENCOUNTER FOR SCREENING FOR MALIGNANT NE 02/14/2018 SHIRANDER , LAURA S Ot E11.65 TYPE 2 DIABETES MELLITUS WITH HYPERGLYCE 02/14/2018 MARÍA SALAMANCA Ot I10 ESSENTIAL (PRIMARY) HYPERTENSION 02/14/2018 MARÍA SALAMANCA Ot I25.10 ATHSCL HEART DISEASE OF [place] CORONARY 02/14/2018 MARÍA SALAMANCA Ot I48.2 CHRONIC ATRIAL FIBRILLATION 02/14/2018 MARÍA SALAMANCA Ot I65.23 OCCLUSION AND STENOSIS OF BILATERAL [place] 02/14/2018 ORENDER DO, LAURA S Ot E11.65 TYPE 2 DIABETES MELLITUS WITH HYPERGLYCE 02/14/2018 ORENDER DO, LAURA S Ot E78.5 HYPERLIPIDEMIA, UNSPECIFIED 02/14/2018 ORENDER DO, LAURA S Ot I25.10 ATHSCL HEART DISEASE OF [place] CORONARY 02/14/2018 ORENDER DO, LAURA S Ot M10.9 GOUT, UNSPECIFIED 02/14/2018 ORENDER DO, LAURA S Ot Z12.5 ENCOUNTER FOR SCREENING FOR MALIGNANT NE 02/14/2018 PREMA VAZQUEZ CARDIOPULMONARY TECHNICIAN AND EEG TECH Ot E11.9 TYPE 2 DIABETES MELLITUS WITHOUT COMPLIC 02/14/2018 PREMA VAZQUEZ CARDIOPULMONARY TECHNICIAN AND EEG TECH Ot E78.5 HYPERLIPIDEMIA, UNSPECIFIED 02/18/2018 ORENDER DO, LAURA S Ot 250.00 DIAB JOSE WO COMPL, TYPE II OR UNSPEC TY 02/18/2018 ORENDER DO, LAURA S Ot 274.9 GOUT NOS 02/18/2018 ORENDER DO, LAURA S Ot 780.79 OTH MALAISE FATIGUE 02/18/2018 ORENDER DO, LAURA S Ot V76.44 SCREEN MAL NEOP-PROSTATE 02/18/2018 ORENDER DO, LAURA S Ot 250.00 DIAB JOSE WO COMPL,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
[2018-10-30] MEDS ORDERED: ASPIRIN 81 MG CHEW (CHILDREN'S ASA) PO ONE (19:00)
[2018-10-30 19:13] LABS: BASOPHILS % (AUTO) 0 % (0-10); EOSINOPHILS # (AUTO) 0.1 10^3/uL (0.0-0.3); EOSINOPHILS % (AUTO) 1 % (0-10); HEMATOCRIT 47 % (40-54); HEMOGLOBIN 15.8 G/DL (13.3-17.7); LYMPHOCYTES # (AUTO) 1.9 X 10^3 (1.0-4.0); LYMPHOCYTES % (AUTO) 24 % (12-44); MEAN CORPUSCULAR HEMOGLOBIN 28 PG (25-34); MEAN CORPUSCULAR HGB CONC 34 G/DL (32-36); MEAN CORPUSCULAR VOLUME 84 FL (80-99); MEAN PLATELET VOLUME 10.1 FL (7.4-10.4); MONOCYTES % (AUTO) 13 % (0-12); NEUTROPHILS # (AUTO) 4.8 X 10^3 (1.8-7.8); NEUTROPHILS % (AUTO) 62 % (42-75); PLATELET COUNT 237 10^3/uL (130-400); WHITE BLOOD COUNT 7.7 10^3/uL (4.3-11.0)
[2018-10-30] MEDS ORDERED: NITROGLYCERIN 0.4 MG SL TABS BTL 25'S SL PRN (19:15)
[2018-10-30 19:23] LABS: INR 1.1 (0.8-1.4); PROTHROMBIN TIME PATIENT 14.4 SEC (12.2-14.7)
[2018-10-30 19:29] LABS: ALANINE AMINOTRANSFERASE 24 U/L (0-55); ALBUMIN 4.6 GM/DL (3.2-4.5); ALKALINE PHOSPHATASE 87 U/L (40-136); BILIRUBIN,TOTAL 1.1 MG/DL (0.1-1.0); BUN/CREATININE RATIO 18; CALCIUM 9.8 MG/DL (8.5-10.1); CARBON DIOXIDE 22 MMOL/L (21-32); CHLORIDE 105 MMOL/L (98-107); GFR ESTIMATED > 60; GLUCOSE 134 MG/DL (70-105); MAGNESIUM 2.1 MG/DL (1.8-2.4); POTASSIUM 3.7 MMOL/L (3.6-5.0); SODIUM 141 MMOL/L (135-145); TOTAL PROTEIN 7.8 GM/DL (6.4-8.2)
--- NOTE | 2018-10-30 19:32 | Diagnostic Imaging Report ---
PATIENT HISTORY: Chest pain. TECHNIQUE: Single frontal view of the chest COMPARISON: 07/22/2018 FINDINGS: There is cardiomegaly. No focal consolidation is seen. Aeration appears improved compared to the prior exam. There is no pleural effusion or pneumothorax. There appear to be old right-sided rib fractures. IMPRESSION: Stable cardiomegaly with no acute pulmonary abnormality seen. Aeration appears improved compared to 07/22/2018. Dictated by: Dictated on workstation # [id number]
--- NOTE | 2018-10-30 19:46 | ED Chest Pain ---
General Chief Complaint: Chest Pain Stated Complaint: HYPERTENSION,CHEST PAIN Nursing Triage Note: PT PRESENTS TO ED VIA AMBULATORY WITH COMPLAINT OF CHEST PAIN THAT RADIATES TO HIS ARMS AND STARTED 2 DAYS AGO. PT STATES THAT PAIN GETS WORSE WITH MOVEMENT. Nursing Sepsis Screen: No Definite Risk Source: patient, family, old records, other (verbal report from Dr. ARAGON with review of office labs) Exam Limitations: no limitations History of Present Illness Date Seen by Provider: Oct 30, 2018 Time Seen by Provider: 18:50 Initial Comments This 73-year-old gentleman with atrial fibrillation and small vessel coronary artery disease presents to the emergency room with 2 days of chest pain. He describes it as a bandlike tightness across his chest that radiates into his neck and upper arms. It is worse with exertion. He has had some mild shortness of air and nausea associated with it. He is also occasionally lightheaded. He reports having headache this past week which is unusual for him. He did not take his medications this morning as he was busy transporting someone to [place]. He also reports quitting Eliquis sometime in the past couple months due to inability to afford the co-pays. He has some problems with noncompliance. He does have mild dementia and is on donepezil. He presented to Dr. ARAGON's office today where a troponin and d-dimer were performed around 16:00. The d- dimer was negative but the troponin return 0.047 with the normal cutoff of 0.028 (same reference ranges the hospital). Patient was contacted by Dr. ARAGON's office and advised to present to the emergency room. Patient is hypertensive on arrival and has a chest pain rated as some work around 10/13. Review of his chart notes a cardiac catheterization from May 2016 demonstrating small vessel disease but no obstructive disease. His reports he has had angioplasty in the past. Allergies and Home Medications Allergies Coded Allergies: NKANo Known Allergies (Unverified Allergy, Mild, 09/19/17) Home Medications Acetaminophen 500 Mg Tablet, 500-1,000 MG PO Q6H PRN for PAIN-MILD, (Reported) TAKES 1-2 (500 MG) TABLETS Allopurinol 100 Mg Tablet, 100 MG PO DAILY, (Reported) Amlodipine Besylate 10 Mg Tablet, 10 MG PO DAILY, (Reported) Amoxicillin 500 Mg Capsule, 500 MG PO TID Prescribed by: SOHAIL OREILLY on 10/19/17 1336 Apixaban 5 Mg Tablet, 5 MG PO BID, (Reported) Atorvastatin Calcium 10 Mg Tablet, 10 MG PO DAILY, (Reported) Cetirizine HCl 10 Mg Tablet, 10 MG PO DAILY, (Reported) Clopidogrel Bisulfate 75 Mg Tablet, 75 MG PO DAILY, (Reported) Donepezil HCl 5 Mg Tablet, 5 MG PO HS, (Reported) Doxazosin Mesylate 4 Mg Tablet, 4 MG PO HS, (Reported) Doxycycline Hyclate 100 Mg Tablet, 100 MG PO BID Prescribed by: SOHAIL OREILLY on 07/22/182218 Escitalopram Oxalate 5 Mg Tablet, 10 MG PO DAILY Prescribed by: ANA ARAGON on 10/07/17 1232 Finasteride 5 Mg Tablet, 5 MG PO DAILY, (Reported) Hydrocodone Bit/Acetaminophen 1 Tab Tab, 1 EACH PO Q4-6HR PRN for PAIN-MODERATE Prescribed by: BRUNO ZARAGOZA on 03/05/18 1703 Hydrocodone/Acetaminophen 1 Each Tablet, 1 EACH PO Q4H PRN for PAIN-SEVERE Prescribed by: SOHAIL OREILLY on 10/19/17 1342 Lisinopril 20 Mg Tablet, 20 MG PO DAILY@0900 Prescribed by: ANA ARAGON on 10/07/17 1232 Metformin HCl 1,000 Mg Tablet, 1,000 MG PO BID, (Reported) Metoprolol Tartrate 25 Mg Tablet, 25 MG PO BID, (Reported) Nitroglycerin 0.4 Mg Tab.subl, 0.4 MG SL UD PRN for CHEST PAIN, (Reported) Prednisone 20 Mg Tab, 40 MG PO DAILY Prescribed by: SOHAIL OREILLY on 07/22/182218 Ranitidine HCl 150 Mg Tablet, 150 MG PO DAILY PRN for HEARTBURN, (Reported) Patient Home Medication List Home Medication List Reviewed: Yes Review of Systems Review of Systems Constitutional: no symptoms reported EENTM: No Symptoms Reported Respiratory: See HPI Cardiovascular: See HPI Gastrointestinal: See HPI Genitourinary: Other (hesitance) Musculoskeletal: no symptoms reported Skin: no symptoms reported Psychiatric/Neurological: See HPI Endocrine: No Symptoms Reported Hematologic/Lymphatic: No Symptoms Reported Past Jmiytru-Ljbnwu-Erhsqx Hx Past Med/Social Hx: Reviewed and Corrections made Patient Social History Alcohol Use: Denies Use Number of Drinks Today: AA Alcohol Beverage of Choice: Beer Recreational Drug Use: No Smoking Status: Former Smoker Type Used: Cigarettes Former Smoker, Quit: Aug 07, 1987 2nd Hand Smoke Exposure: No Recent Foreign Travel: No Contact w/Someone Who Travel: No Recent Infectious Disease Expo: No Recent Hopitalizations: No Immunizations Up To Date Tetanus Booster (TDap): Less than 5yrs PED Vaccines UTD: Yes Date of Pneumonia Vaccine: Feb 10, 2015 Date of Influenza Vaccine: Feb 18, 2017 Seasonal Allergies Seasonal Allergies: Yes (POLLEN ) Past Medical History Surgeries: Yes (HERNIA SURGERY, HEMORRHOIDS, EYE MUSCLE SURGERY, skin graft) Cardiac (angioplasty), Cystectomy, Gallbladder Respiratory: No (pt states he has difficulty sleeping lying down, prefers to sleep upright) Currently Using CPAP: No Currently Using BIPAP: No Cardiac: Yes Atrial Fibrillation, Chronic Edema/Swelling, Hypertension Neurological: Yes Dementia Reproductive Disorders: No Sexually Transmitted Disease: No HIV/AIDS: No Genitourinary: Yes Benign Prostatic Hyperpl Gastrointestinal: Yes Hiatal Hernia Musculoskeletal: No Degenerate Disk Disease, Arthritis, Chronic Back Pain, Gout Endocrine: Yes Diabetes, Non-Insulin dep HEENT: Yes Cataract Loss of Vision: Denies Hearing Impairment: Hard of Hearing Cancer: Yes Skin Did You Recieve Any Treatments: Yes What Type of Treatment Did You: Surgical Intervention Psychosocial: Yes Anxiety, Depression Integumentary: Yes (skin graft to left graham, BASAL CELL CARCINOMAS *10) Blood Disorders: No Adverse Reaction/Blood Tranf: No (N/A) Family Medical History Reviewed Nursing Family Hx Cardiovascular disease 19 FATHER Hypertension 19 FATHER Physical Exam Vital Signs Vital Signs - First Documented 10/30/18 10/30/18 18:51 19:00 Temp 98.0 Pulse 90 Resp 18 Pulse Ox 98 O2 Delivery Room Air O2 Flow Rate 2.0 Capillary Refill : Less Than 3 Seconds Height, Weight, BMI Height: 5'8.00" Weight: 217lbs. 0oz. 98.119877zk; 32.1 BMI Method:Stated General Appearance: No Apparent Distress, WD/WN HEENT: PERRL/EOMI, Normal ENT Inspection Neck: Normal Inspection Respiratory: Chest Non Tender, Lungs Clear, Normal Breath Sounds, No Accessory Muscle Use, No Respiratory Distress Cardiovascular: No Edema, No Murmur, Irregularly Irregular (normal rate) Gastrointestinal: Normal Bowel Sounds, Non Tender, Soft Extremity: Normal Inspection, No Pedal Edema Neurologic/Psychiatric: Alert, Oriented x3, No Motor/Sensory Deficits, Normal Mood/Affect, transmission supervisor II-XII Norm as Tested Skin: Normal Color, Warm/Dry Progress/Results/Core Measures Results/Orders Lab Results Laboratory Tests Test 10/30/18 18:55 10/30/18 21:04 Range/Units White Blood Count 7.7 4.3-11.0 10^3/uL Red Blood Count 5.61 4.35-5.85 10^6/uL Hemoglobin 15.8 13.3-17.7 G/DL Hematocrit 47 40-54 % Mean Corpuscular Volume 84 80-99 FL Mean Corpuscular Hemoglobin 28 25-34 PG Mean Corpuscular Hemoglobin Concent 34 32-36 G/DL Red Cell Distribution Width 16.0 H 10.0-14.5 % Platelet Count 237 130-400 10^3/uL Mean Platelet Volume 10.1 7.4-10.4 FL Neutrophils (%) (Auto) 62 42-75 % Lymphocytes (%) (Auto) 24 12-44 % Monocytes (%) (Auto) 13 H 0-12 % Eosinophils (%) (Auto) 1 0-10 % Basophils (%) (Auto) 0 0-10 % Neutrophils # (Auto) 4.8 1.8-7.8 X 10^3 Lymphocytes # (Auto) 1.9 1.0-4.0 X 10^3 Monocytes # (Auto) 1.0 0.0-1.0 X 10^3 Eosinophils # (Auto) 0.1 0.0-0.3 10^3/uL Basophils # (Auto) 0.0 0.0-0.1 10^3/uL Prothrombin Time 14.4 12.2-14.7 SEC INR Comment 1.1 0.8-1.4 Activated Partial Thromboplast Time 30 24-35 SEC Sodium Level 141 135-145 MMOL/L Potassium Level 3.7 3.6-5.0 MMOL/L Chloride Level 105 98-107 MMOL/L Carbon Dioxide Level 22 21-32 MMOL/L Anion Gap 14 5-14 MMOL/L Blood Urea Nitrogen 16 7-18 MG/DL Creatinine 0.90 0.60-1.30 MG/DL Estimat Glomerular Filtration Rate > 60 BUN/Creatinine Ratio 18 Glucose Level 134 H 70-105 MG/DL Calcium Level 9.8 8.5-10.1 MG/DL Corrected Calcium 8.5-10.1 MG/DL Magnesium Level 2.1 1.8-2.4 MG/DL Total Bilirubin 1.1 H 0.1-1.0 MG/DL Aspartate Amino Transf (AST/SGOT) 19 5-34 U/L Alanine Aminotransferase (ALT/SGPT) 24 0-55 U/L Alkaline Phosphatase 87 40-136 U/L Myoglobin 38.5 10.0-92.0 NG/ML Troponin I < 0.028 0.046 H <0.028 NG/ML Total Protein 7.8 6.4-8.2 GM/DL Albumin 4.6 H 3.2-4.5 GM/DL My Orders Orders - ZAINAB ROSARIO MD Cbc With Automated Diff (10/30/18 18:50) Magnesium (10/30/18 18:50) Chest 1 View, Ap/Pa Only (10/30/18 18:50) Ekg Tracing (10/30/18 18:50) Cardiac Profile 1 (10/30/18 18:50) Comprehensive Metabolic Panel (10/30/18 18:50) Myoglobin Serum (10/30/18 18:50) Protime With Inr (10/30/18 18:50) Partial Thromboplastin Time (10/30/18 18:50) O2 (10/30/18 18:50) Monitor-Rhythm Ecg Trace Only (10/30/18 18:50) Lipid Panel (10/31/18 06:00) Ed Iv/Invasive Line Start (10/30/18 18:50) Aspirin Chewable Tablet (Baby Aspirin Ch (10/30/18 19:00) Nitroglycerin 0.4 Mg Btl 25's (Nitrostat (10/30/18 19:15) Troponin I (10/30/18 21:00) Nitroglycerin Ointment (Nitrobid Ointme (10/30/18 20:00) Ekg Tracing (10/30/18 21:35) Apixaban Tablet (Eliquis Tablet) (10/30/18 22:00) Medications Given in ED Current Medications Medications Dose Ordered Sig/Jaylen Route Start Time Stop Time Status Last Admin Dose Admin Apixaban 5 mg ONCE ONCE PO 10/30/18 22:00 10/30/18 22:01 DC 10/30/18 22:10 5 MG Aspirin 324 mg ONCE ONCE PO 10/30/18 19:00 10/30/18 19:01 DC 10/30/18 19:08 324 MG Nitroglycerin 0.4 mg UD PRN SL 10/30/18 19:15 10/30/18 19:08 0.4 MG Nitroglycerin 1 inch ONCE ONCE TOP 10/30/18 20:00 10/30/18 20:01 DC 10/30/18 20:02 1 INCH Vital Signs/I&O 10/30/18 10/30/18 10/30/18 10/30/18 18:51 19:00 19:08 19:21 Temp 98.0 98.0 Pulse 90 Resp 18 B/P (MAP) Pulse Ox 98 95 O2 Delivery Room Air Nasal Cannula Nasal Cannula O2 Flow Rate 2.0 2.00 Progress Progress Note #1: Progress Note Patient was given aspirin. Patient's pain decreased from a moderate pain to a minimal pressure in the left lower chest after 3 nitroglycerin. Blood pressure is starting to rebound again and his pain is now increasing. Nitroglycerin paste was ordered. Workup was relatively unremarkable. Troponin was negative. I ordered a 2 hour troponin. We will monitor patient until then. Progress Note #2: Progress Note 2 hour troponin was 0.046 which is near the outpatient troponin lab obtained earlier today. Patient was pain-free with Nitropaste. Case was discussed with Dr. Giron who agreed admission was appropriate for observation. Eliquis was given for stroke prophylaxis with his Deepthi. willard. Initial ECG Impression Date: Oct 30, 2018 Initial ECG Impression Time: 18:56 Initial ECG Rate: 81 Initial ECG Rhythm: A Fib/Flutter Initial ECG Impression: Atrial Fibrillation Comment Rate controlled atrial fibrillation with no ST elevation or depression. No abnormal intervals or axis deviation. EKG : EKG Time: 21:38 Rate: 60 Rhythm: A Fib/Flutter Intervals: Normal ECG Comparisson: Unchanged ECG Impression: Atrial Fibrillation Comment Rate controlled atrial fibrillation with no ST elevation or depression. No abnormal intervals or axis deviation. No significant change from prior. Diagnostic Imaging Diagonstic Imaging: Xray Plain Films/CT/US/NM/MRI: chest Comments Chest x-ray viewed by me and report reviewed. See report below: NAME: [facility] REC#: [id number] PT STATUS: REG ER : 1945 PHYSICIAN: ZAINAB ROSARIO MD ADMIT DATE: 10/30/18/ER Draft Date of Exam:10/30/18 CHEST 1 VIEW, AP/PA ONLY PATIENT HISTORY: Chest pain. TECHNIQUE: Single frontal view of the chest COMPARISON: 07/22/2018 FINDINGS: There is cardiomegaly. No focal consolidation is seen. Aeration appears improved compared to the prior exam. There is no pleural effusion or pneumothorax. There appear to be old right-sided rib fractures. IMPRESSION: Stable cardiomegaly with no acute pulmonary abnormality seen. Aeration appears improved compared to 07/22/2018. Dictated on workstation # [id number] Dict: 10/30/181927 Trans: 10/30/181931 [facility] [phone] Interpreted by: NUSRAT WALTON MD Departure Communication (Admissions) Time/Spoke to Admitting Phy: 22:00 Dr. Aragon Time/Spoke to Consulting Phy: 21:55 Dr. Giron Impression Primary Impression: Chest pain Qualified Codes: R07.9 - Chest pain, unspecified Additional Impressions: Hypertension Qualified Codes: I10 - Essential (primary) hypertension Noncompliance Atrial fibrillation Qualified Codes: I48.2 - Chronic atrial fibrillation Coronary artery disease Qualified Codes: I25.10 - Atherosclerotic heart disease of pala coronary artery without angina pectoris Disposition: ADMITTED INPATIENT Condition: Improved Admissions Decision to Admit Reason: Admit from ER (General) Decision to Admit/Date: Oct 30, 2018 Time/Decision to Admit Time: 21:50 Departure-Patient Inst. Referrals: ANA ARAGON DO (PCP/Family) Primary Care Physician ZAINAB ROSARIO MD Oct 30, 2018 19:46
[2018-10-30] MEDS ORDERED: NITROGLYCERIN 2% OINT 1 GM UNIT DOSE PACKET TOP ONE (20:00)
--- NOTE | 2018-10-30 20:55 | NUR ---
REPORT GIVEN TO THERON CORADO. PT RESTING QUIETLY WITH SLIGHT PRESSURE IN LT UPPER CHEST BUT FEELING MUCH BETTER. WAITING TO DO BLOOD DRAW AT 2100.
[2018-10-30] MEDS ORDERED: APIXABAN 5 MG (ELIQUIS) TABLET PO ONE (22:00)
--- OUTSIDE RECORDS SUMMARY | 2018-10-30 22:32 | XMS REPORT | Continuity of Care Document ---
[...] LAURA S Ot 780.79 07/31/2014 CECILIA ELY, ASVANNAH Sinclair Ot 709.9 07/31/2014 CECILIA ELY, SAVANNAH [...] CAMPOS MD Ot 414.01 CORONARY ATHEROSCLEROSIS OF [place] CORON 09/01/2014 SKYLAR CAMPOS MD Ot 427.31 [...] 250.00 09/16/2014 ORENDER DO, ALURA S Ot 274.9 09/16/2014 ORENDER DO, LAURA [...] ELY, SKYLAR Narvaez Ot 427.31 09/16/2014 BETH EYL, SKYLAR Narvaez Ot 530.81 09/16/2014 BETH ELY, [...] ELY, SKYLAR J Ot 250.00 09/16/2014 BETH EYL, SKYLAR J Ot 401.9 09/16/2014 BETH ELY, [...] MAURY ARAGON DOLINE S Ot I25.10 03/21/2015 MUARY ARAGON DOLINE S Ot R53.83 05/16/2015 AMBER [...] S Ot I25.10 ATHSCL HEART DISEASE OF [place] CORONARY 09/12/2015 SHIRANDER DO, LAURA S Ot [...] S Ot I25.10 ATHSCL HEART DISEASE OF [place] CORONARY 09/12/2015 SHIRANDER DO, LAURA S Ot [...] WITH HYPERGLYCE 01/17/2016 JUAN DIEGO SOTELO Cora BOWSTRING MAKER Ot E11.9 TYPE 2 DIABETES MELLITUS WITHOUT COMPLIC 01/17/2016 JUAN DIEGO SOTELO Cora BOWSTRING MAKER Ot I10 ESSENTIAL (PRIMARY) HYPERTENSION 01/17/2016 JUAN DIEGO SOTELO Cora BOWSTRING MAKER Ot I25.10 ATHSCL HEART DISEASE OF [place] CORONARY 01/17/2016 JUAN DIEGO SOTELO Cora BOWSTRING MAKER Ot Z12.5 ENCOUNTER FOR SCREENING FOR MALIGNANT [...] 05/08/2016 CECILIA ELY, SAVANNAH Sinclair Ot V72.81 [id number] CARDIOVASCULAR 05/08/2016 CECILIA ELY, SAVANNAH Sinclair Ot V74.8 SCREEN-BACTERIAL DIS NEC 05/08/2016 BETH ELY, SKYLAR Narvaez Ot 250.00 DIAB JOSE WO COMPL, TYPE II OR UNSPEC TY 05/08/2016 BETH ELY, SKYLAR Narvaez Ot 401.9 HYPERTENSION NOS 05/08/2016 SKYLAR CAMPOS MD Ot 427.31 ATRIAL FIBRILLATION 05/08/2016 SKYLAR CAMPOS MD Ot 530.81 ESOPHAGEAL REFLUX 05/08/2016 SKYLRA CAMPOS MD Ot 250.00 DIAB JOSE WO [...] S Ot I25.10 ATHSCL HEART DISEASE OF [place] CORONARY 05/08/2016 ANTHONY ARAGON DOQUELINE S Ot R53.83 OTHER FATIGUE 05/08/2016 MARÍA SALAMANCA Ot I10 ESSENTIAL (PRIMARY) HYPERTENSION 05/08/2016 MARÍA SALAMANCA Ot I25.10 ATHSCL HEART DISEASE OF [place] CORONARY 05/08/2016 MARÍA SALAMANCA Ot I48.2 CHRONIC ATRIAL FIBRILLATION 05/08/2016 MARÍA SALAMANCA Ot R07.89 OTHER CHEST PAIN 05/08/2016 MARÍA SALAMANCA Ot I10 ESSENTIAL (PRIMARY) HYPERTENSION 05/08/2016 MARÍA SALAMANCA Ot I25.10 ATHSCL HEART DISEASE OF [place] CORONARY 05/08/2016 MARÍA SALAMANCA Ot I48.2 CHRONIC ATRIAL FIBRILLATION 05/08/2016 MARÍA SALAMANCA Ot R07.89 OTHER CHEST PAIN 05/08/2016 Ot E11.65 TYPE 2 DIABETES MELLITUS WITH HYPERGLYCE 05/08/2016 JUAN DIEGO SOTELO BOWSTRING MAKER Ot E11.9 TYPE 2 DIABETES MELLITUS WITHOUT COMPLIC 05/08/2016 JUAN DIEGO SOTELO BOWSTRING MAKER Ot I10 ESSENTIAL (PRIMARY) HYPERTENSION 05/08/2016 JUAN DIEGO SOTELO Cora BOWSTRING MAKER Ot I25.10 ATHSCL HEART DISEASE OF [place] CORONARY 05/08/2016 JUAN DIEGO SOTELO Cora BOWSTRING MAKER Ot Z12.5 ENCOUNTER FOR SCREENING FOR MALIGNANT NE 05/09/2016 SKYLAR CAMPOS MD Ot E11.9 TYPE 2 DIABETES MELLITUS WITHOUT COMPLIC 05/09/2016 SKYLAR CAMPOS MD Ot I10 ESSENTIAL (PRIMARY) HYPERTENSION 05/09/2016 SKYLAR CAMPOS MD Ot I25.10 ATHSCL HEART DISEASE OF [place] CORONARY 05/09/2016 SKYLAR CAMPOS MD Ot I48.2 CHRONIC ATRIAL FIBRILLATION 05/09/2016 SKYLAR CAMPOS MD Ot K21.9 GASTRO-ESOPHAGEAL REFLUX DISEASE WITHOUT 05/09/2016 SKYLAR CAMPOS MD Ot R07.89 OTHER CHEST PAIN 05/09/2016 SKYLAR CAMPOS MD Ot Z79.01 GROUP HOME (CURRENT) USE OF ANTICOAGULANT 05/09/2016 SKYLAR CAMPOS MD Ot Z79.899 OTHER GROUP HOME (CURRENT) DRUG THERAPY 05/09/2016 SKYLAR CAMPOS MD Ot Z95.5 PRESENCE OF CORONARY ANGIOPLASTY IMPLANT 06/07/2016 SKYLAR CAMPOS MD Ot E11.9 TYPE 2 DIABETES MELLITUS WITHOUT COMPLIC 06/07/2016 SKYLAR ACMPOS MD Ot I10 ESSENTIAL (PRIMARY) HYPERTENSION 06/07/2016 SKYLAR CAMPOS MD Ot I25.10 ATHSCL HEART DISEASE OF [place] CORONARY 06/07/2016 SKYLAR CAMPOS MD Ot I48.2 CHRONIC ATRIAL FIBRILLATION 06/07/2016 SKYLAR CAMPOS MD Ot K21.9 GASTRO-ESOPHAGEAL REFLUX DISEASE WITHOUT 06/07/2016 SKYLAR CAMPOS MD Ot R07.89 OTHER CHEST PAIN 06/07/2016 SKYLAR CAMPOS MD Ot Z79.01 LABEL FUSER TENDER (CURRENT) USE OF ANTICOAGULANT 06/07/2016 SKYLAR CAMPOS MD Ot Z79.899 OTHER LABEL FUSER TENDER (CURRENT) DRUG THERAPY 06/07/2016 SKYLAR CAMPOS MD [...] 06/12/2016 CECILIA ELY, SAVANNAH Sinclair Ot V72.81 [id number] CARDIOVASCULAR 06/12/2016 CECILIA ELY, SAVANNAH Sinclair Ot [...] S Ot I25.10 ATHSCL HEART DISEASE OF [place] CORONARY 06/12/2016 LAURA ARAGON DO S Ot R53.83 OTHER FATIGUE 06/12/2016 MARÍA SALAMANCA Ot I10 ESSENTIAL (PRIMARY) HYPERTENSION 06/12/2016 MARÍA SALAMANCA Ot I25.10 ATHSCL HEART DISEASE OF [place] CORONARY 06/12/2016 MARÍA SALAMANCA Ot I48.2 CHRONIC ATRIAL FIBRILLATION 06/12/2016 MARÍA SALAMANCA Ot R07.89 OTHER CHEST PAIN 06/12/2016 MARÍA SALAMANCA Ot I10 ESSENTIAL (PRIMARY) HYPERTENSION 06/12/2016 MARÍA SALAMANCA Ot I25.10 ATHSCL HEART DISEASE OF [place] CORONARY 06/12/2016 MARÍA SALAMANCA Ot I48.2 CHRONIC ATRIAL FIBRILLATION 06/12/2016 MARÍA SALAMANCA Ot R07.89 OTHER CHEST PAIN 06/12/2016 Ot E11.65 TYPE 2 DIABETES MELLITUS WITH HYPERGLYCE 06/12/2016 JUAN DIEGO SOTELO BOWSTRING MAKER Ot E11.9 TYPE 2 DIABETES MELLITUS WITHOUT COMPLIC 06/12/2016 JUAN DIEGO SOTELO BOWSTRING MAKER Ot I10 ESSENTIAL (PRIMARY) HYPERTENSION 06/12/2016 JUAN DIEGO SOTELO APRN Ot I25.10 ATHSCL HEART DISEASE OF [place] CORONARY 06/12/2016 JUAN DIEGO SOTELO BOWSTRING MAKER Ot Z12.5 ENCOUNTER FOR SCREENING FOR MALIGNANT [...] 08/29/2016 CECILIA ELY, SAVANNAH Sinclair Ot V72.81 [id number] CARDIOVASCULAR 08/29/2016 CECILIA ELY, SAVANNAH Sinclair Ot [...] COMPL, TYPE II OR UNSPEC TY 08/29/2016 CARSON CAMPOS MDHAR J Ot 401.9 HYPERTENSION NOS [...] Ot 530.81 ESOPHAGEAL REFLUX 08/29/2016 SHIRANDER DO, LAURA S Ot 250.00 DIAB JOSE WO COMPL, TYPE II OR UNSPEC TY 08/29/2016 MAURY ARAGON DOLINE S Ot 274.9 GOUT NOS 08/29/2016 LAURA ARAGON DO S Ot E11.9 TYPE 2 DIABETES MELLITUS WITHOUT COMPLIC 08/29/2016 MAURY ARAGON DOLINE S Ot I25.10 ATHSCL HEART DISEASE OF [place] CORONARY 08/29/2016 LAURA ARAGON DO S Ot R53.83 OTHER FATIGUE 08/29/2016 MARÍA SALAMANCA Ot I10 ESSENTIAL (PRIMARY) HYPERTENSION 08/29/2016 MARÍA SALAMANCA Ot I25.10 ATHSCL HEART DISEASE OF [place] CORONARY 08/29/2016 MARÍA SALAMANCA Ot I48.2 CHRONIC ATRIAL FIBRILLATION 08/29/2016 MARÍA SALAMANCA Ot R07.89 OTHER CHEST PAIN 08/29/2016 MARÍA SALAMANCA Ot I10 ESSENTIAL (PRIMARY) HYPERTENSION 08/29/2016 MARÍA SALAMANCA Ot I25.10 ATHSCL HEART DISEASE OF [place] CORONARY 08/29/2016 MARÍA SALAMANCA Ot I48.2 CHRONIC ATRIAL FIBRILLATION 08/29/2016 MARÍA SALAMANCA Ot R07.89 OTHER CHEST PAIN 08/29/2016 Ot E11.65 TYPE 2 DIABETES MELLITUS WITH HYPERGLYCE 08/29/2016 JUAN DIEGO SOTELO BOWSTRING MAKER Ot E11.9 TYPE 2 DIABETES MELLITUS WITHOUT COMPLIC 08/29/2016 JUAN DIEGO SOTELO BOWSTRING MAKER Ot I10 ESSENTIAL (PRIMARY) HYPERTENSION 08/29/2016 JUAN DIEGO SOTELO APRN Ot I25.10 ATHSCL HEART DISEASE OF [place] CORONARY 08/29/2016 JUAN DIEGO SOTELO BOWSTRING MAKER Ot Z12.5 ENCOUNTER FOR SCREENING FOR MALIGNANT [...] 03/22/2017 CECILIA ELY, SAVANNAH Sinclair Ot V72.81 [id number] CARDIOVASCULAR 03/22/2017 CECILIA ELY, SAVANNAH Sinclair Ot [...] Ot 401.9 HYPERTENSION NOS 03/22/2017 BETH ELY, CARSONHAR J Ot 427.31 ATRIAL FIBRILLATION 03/22/2017 CARSON [...] S Ot I25.10 ATHSCL HEART DISEASE OF [place] CORONARY 03/22/2017 DOMITILA WINTERS, LAURA S Ot R53.83 OTHER FATIGUE 03/22/2017 MARÍA SALAMANCA Ot I10 ESSENTIAL (PRIMARY) HYPERTENSION 03/22/2017 MARÍA SALAMANCA Ot I25.10 ATHSCL HEART DISEASE OF [place] CORONARY 03/22/2017 MARÍA SALAMANCA Ot I48.2 CHRONIC ATRIAL FIBRILLATION 03/22/2017 MARÍA SALAMANCA Ot R07.89 OTHER CHEST PAIN 03/22/2017 MARÍA SALAMANCA Ot I10 ESSENTIAL (PRIMARY) HYPERTENSION 03/22/2017 MARÍA SALAMANCA Ot I25.10 ATHSCL HEART DISEASE OF [place] CORONARY 03/22/2017 MARÍA SALAMANCA Ot I48.2 CHRONIC ATRIAL FIBRILLATION 03/22/2017 MARÍA SALAMANCA Ot R07.89 OTHER CHEST PAIN 03/22/2017 Ot E11.65 TYPE 2 DIABETES MELLITUS WITH HYPERGLYCE 03/22/2017 JUAN DIEGO SOTELO BOWSTRING MAKER Ot E11.9 TYPE 2 DIABETES MELLITUS WITHOUT COMPLIC 03/22/2017 JUAN DIEGO SOTELO BOWSTRING MAKER Ot I10 ESSENTIAL (PRIMARY) HYPERTENSION 03/22/2017 JUAN DIEGO SOTELO BOWSTRING MAKER Ot I25.10 ATHSCL HEART DISEASE OF [place] CORONARY 03/22/2017 JUAN DIEGO SOTELO APRN Ot Z12.5 ENCOUNTER FOR SCREENING FOR MALIGNANT NE 03/22/2017 LAURA ARAGON DO Ot E11.65 TYPE 2 DIABETES MELLITUS WITH HYPERGLYCE 03/22/2017 MARÍA SALAMANCA Ot I25.10 ATHSCL HEART DISEASE OF [place] CORONARY 03/25/2017 MARÍA SALAMANCA Ot I10 ESSENTIAL (PRIMARY) HYPERTENSION 03/25/2017 MARÍA SALAMANCA Ot I25.10 ATHSCL HEART DISEASE OF [place] CORONARY 03/25/2017 MARÍA SALAMANCA Ot I48.2 CHRONIC ATRIAL FIBRILLATION 03/25/2017 MARÍA SALAMANCA Ot I65.23 OCCLUSION AND STENOSIS OF BILATERAL [place] 04/02/2017 MARÍA SALAMANCA Ot I10 ESSENTIAL (PRIMARY) HYPERTENSION 04/02/2017 MARÍA SALAMANCA Ot I25.10 ATHSCL HEART DISEASE OF [place] CORONARY 04/02/2017 MARÍA SALAMANCA Ot I48.2 CHRONIC [...] 08/07/2017 CECILIA ELY, SAVANNAH Sinclair Ot V72.81 [id number] CARDIOVASCULAR 08/07/2017 CECILIA ELY, SAVANNAH Sinclair Ot [...] S Ot I25.10 ATHSCL HEART DISEASE OF [place] CORONARY 08/07/2017 LAURA ARAGON DO S Ot R53.83 OTHER FATIGUE 08/07/2017 MARÍA SALAMANCA Ot I10 ESSENTIAL (PRIMARY) HYPERTENSION 08/07/2017 MARÍA SALAMANCA Ot I25.10 ATHSCL HEART DISEASE OF [place] CORONARY 08/07/2017 MARÍA SALAMANCA Ot I48.2 CHRONIC ATRIAL FIBRILLATION 08/07/2017 MARÍA SALAMANCA Ot R07.89 OTHER CHEST PAIN 08/07/2017 MARÍA SALAMANCA Ot I10 ESSENTIAL (PRIMARY) HYPERTENSION 08/07/2017 MARÍA SALAMANCA Ot I25.10 ATHSCL HEART DISEASE OF [place] CORONARY 08/07/2017 MARÍA SALAMANCA Ot I48.2 CHRONIC ATRIAL FIBRILLATION 08/07/2017 MARÍA SALAMANCA Ot R07.89 OTHER CHEST PAIN 08/07/2017 Ot E11.65 TYPE 2 DIABETES MELLITUS WITH HYPERGLYCE 08/07/2017 JUAN DIEGO SOTELO BOWSTRING MAKER Ot E11.9 TYPE 2 DIABETES MELLITUS WITHOUT COMPLIC 08/07/2017 JUAN DIEGO SOTELO BOWSTRING MAKER Ot I10 ESSENTIAL (PRIMARY) HYPERTENSION 08/07/2017 JUAN DIEGO SOTELO BOWSTRING MAKER Ot I25.10 ATHSCL HEART DISEASE OF [place] CORONARY 08/07/2017 JUAN DIEGO SOTELO BOWSTRING MAKER Ot Z12.5 ENCOUNTER FOR SCREENING FOR MALIGNANT NE 08/07/2017 MAURY ARAGON DOLINE S Ot E11.65 TYPE 2 DIABETES MELLITUS WITH HYPERGLYCE 08/07/2017 MARÍA SALAMANCA Ot I10 ESSENTIAL (PRIMARY) HYPERTENSION 08/07/2017 MARÍA SALAMANCA Ot I25.10 ATHSCL HEART DISEASE OF [place] CORONARY 08/07/2017 MARÍA SALAMANCA Ot I48.2 CHRONIC [...] S Ot I25.10 ATHSCL HEART DISEASE OF [place] CORONARY 08/13/2017 ORENDER DO, LAURA S Ot M10.9 GOUT, UNSPECIFIED 08/27/2017 ORENDER DO, LAURA S Ot E11.65 TYPE 2 DIABETES MELLITUS WITH HYPERGLYCE 08/27/2017 ORENDER DO, LAURA S Ot E78.5 HYPERLIPIDEMIA, UNSPECIFIED 08/27/2017 ORENDER DO, LAURA S Ot I25.10 ATHSCL HEART DISEASE OF [place] CORONARY 08/27/2017 ORENDER DO, LAURA S Ot [...] HYPERTENSIVE HEART DISEASE WITH HEART FA 09/27/2017 SMAMI BEAN MD Ot I25.10 ATHSCL HEART DISEASE OF [place] CORONARY 09/27/2017 SAMMI BEAN MD, Ot I48.91 [...] NE 09/27/2017 SAMMI BEAN MD, Ot Z79.01 GROUP HOME (CURRENT) USE OF ANTICOAGULANT 09/27/2017 SAMMI BEAN MD, Ot Z79.02 LABEL FUSER TENDER (CURRENT) USE OF ANTITHROMBOTI 09/27/2017 SAMMI BEAN MD, Ot Z79.84 LABEL FUSER TENDER (CURRENT) USE OF ORAL HYPOGLYC 09/27/2017 SAMMI BEAN MD, Ot Z79.899 OTHER GROUP HOME (CURRENT) DRUG THERAPY 09/27/2017 SAMMI BEAN MD, Ot Z86.010 PERSONAL HISTORY OF COLONIC POLYPS 09/30/2017 VINCE DAILEY Ot E11.9 TYPE 2 DIABETES MELLITUS WITHOUT COMPLIC 09/30/2017 VINCE DAILEY Ot F32.9 MAJOR DEPRESSIVE DISORDER, SINGLE EPISOD 09/30/2017 VINCE DAILEY Ot F41.9 ANXIETY DISORDER, UNSPECIFIED 09/30/2017 VINCE DAILEY Ot I10 ESSENTIAL (PRIMARY) HYPERTENSION 09/30/2017 VINCE DAILEY Ot I25.10 ATHSCL HEART DISEASE OF [place] CORONARY 09/30/2017 VINCE DAILEY Ot I48.91 UNSPECIFIED ATRIAL FIBRILLATION 09/30/2017 ASHLIE, VINCE [employer]ODUCT DEVELOPMENT [employer]UARY Ot K21.9 GASTRO- ESOPHAGEAL REFLUX DISEASE WITHOUT 09/30/2017 ASHLIE, VINCE [employer]ELOP[employer] Ot K92.1 MELENA 09/30/2017 ASHLIEVINCE OlsonP Ot N40.0 BENIGN PROSTATIC HYPERPLASIA WITHOUT LOW 09/30/2017 ASHLIEVINCE Olson PRODUCT DEVELOPMENT ACTUARY Ot Z79.01 LABEL FUSER TENDER (CURRENT) USE OF ANTICOAGULANT 09/30/2017 ASHLIEVINCE OlsonP Ot Z79.02 GROUP HOME (CURRENT) USE OF ANTITHROMBOTI 09/30/2017 ASHLIEVINCE OlsonP Ot Z79.84 LABEL FUSER TENDER (CURRENT) USE OF ORAL HYPOGLYC 09/30/2017 ASHLIEVINCE [...] OTHER SPECIFIED POSTPROCEDURAL STATES 10/02/2017 ASHLIE VINCE [employer]ELOP[employer] Ot E11.9 TYPE 2 DIABETES MELLITUS WITHOUT COMPLIC 10/02/2017 VINCE DAILEYP Ot F32.9 MAJOR DEPRESSIVE DISORDER, SINGLE EPISOD 10/02/2017 ASHLIE VINCE [employer]EL[employer] Ot F41.9 ANXIETY DISORDER, UNSPECIFIED 10/02/2017 ASHLIE VINCE PRODUCT DEVELOPMENT ACTUARY Ot I10 ESSENTIAL (PRIMARY) HYPERTENSION 10/02/2017 VINCE DAILEYP Ot I25.10 ATHSCL HEART DISEASE OF [place] CORONARY 10/02/2017 ASHLIE VINCE [employer]ODUCT DEVELOPMENT ACTUARY Ot I48.91 UNSPECIFIED ATRIAL FIBRILLATION 10/02/2017 VINCE DAILEYP Ot K21.9 GASTRO- ESOPHAGEAL REFLUX DISEASE WITHOUT 10/02/2017 ASHLIEVINCE OlsonP Ot K92.1 MELENA 10/02/2017 ASHLIEVINCE OlsonP Ot N40.0 BENIGN PROSTATIC HYPERPLASIA WITHOUT LOW 10/02/2017 VINCE DAILEYP Ot Z79.01 LABEL FUSER TENDER (CURRENT) USE OF ANTICOAGULANT 10/02/2017 VINCE DAILEYP Ot Z79.02 LABEL FUSER TENDER (CURRENT) USE OF ANTITHROMBOTI 10/02/2017 VINCE DAILEY Ot Z79.84 LABEL FUSER TENDER (CURRENT) USE OF ORAL HYPOGLYC 10/02/2017 VINCE [...] MD Ot I25.10 ATHSCL HEART DISEASE OF [place] CORONARY 10/07/2017 ANITA CONN MD Ot I48.0 [...] MD Ot I25.10 ATHSCL HEART DISEASE OF [place] CORONARY 10/07/2017 SENIA ELY, ANITA Markham Ot [...] APRN Ot I25.10 ATHSCL HEART DISEASE OF [place] CORONARY 10/19/2017 SOHAIL OREILLY APRN Ot I48.91 [...] AND 10/19/2017 SOHAIL OREILLY APRN Ot Z79.01 GROUP HOME (CURRENT) USE OF ANTICOAGULANT 10/19/2017 SOHAIL OREILLY APRN Ot Z79.02 GROUP HOME (CURRENT) USE OF ANTITHROMBOTI 10/19/2017 SOHAIL OREILLY APRN Ot Z79.84 GROUP HOME (CURRENT) USE OF ORAL HYPOGLYC 10/19/2017 SOHAIL [...] APRN Ot I25.10 ATHSCL HEART DISEASE OF [place] CORONARY 10/21/2017 SOHAIL OREILLY APRN Ot I48.91 [...] UNSPECIFIED INJURY OF FACE, INITIAL ENCO 10/21/2017 SOHAIL OREILLY APRN Ot W10.9XXA FALL (ON) (FROM) UNSPECIFIED STAIRS AND 10/21/2017 SOHAIL OREILLY APRN Ot Z79.01 LABEL FUSER TENDER (CURRENT) USE OF ANTICOAGULANT 10/21/2017 SOHAIL OREILLY APRN Ot Z79.02 LABEL FUSER TENDER (CURRENT) USE OF ANTITHROMBOTI 10/21/2017 SOHAIL OREILLY APRN Ot Z79.84 LABEL FUSER TENDER (CURRENT) USE OF ORAL HYPOGLYC 10/21/2017 SOHAIL [...] MD Ot I25.10 ATHSCL HEART DISEASE OF [place] CORONARY 11/08/2017 CHAS CHUA MD, Ot I48.0 PAROXYSMAL ATRIAL FIBRILLATION 11/08/2017 CHAS CHUA MD Ot K21.9 GASTRO-ESOPHAGEAL REFLUX DISEASE WITHOUT 11/08/2017 CHAS CHUA MD Ot R06.00 DYSPNEA, UNSPECIFIED 11/08/2017 CHAS CHUA MD Ot R06.02 SHORTNESS OF BREATH 11/08/2017 CHAS CHUA MD Ot Z79.01 GROUP HOME (CURRENT) USE OF ANTICOAGULANT 11/08/2017 CHAS CHUA MD Ot Z79.02 LABEL FUSER TENDER (CURRENT) USE OF ANTITHROMBOTI 11/08/2017 CHAS CHUA MD Ot Z79.84 LABEL FUSER TENDER (CURRENT) USE OF ORAL HYPOGLYC 11/08/2017 CHAS [...] MD Ot I25.10 ATHSCL HEART DISEASE OF [place] CORONARY 11/11/2017 CHAS CHUA MD Ot I48.0 PAROXYSMAL ATRIAL FIBRILLATION 11/11/2017 CHAS CHUA MD, Ot K21.9 GASTRO-ESOPHAGEAL REFLUX DISEASE WITHOUT 11/11/2017 CHAS CHUA MD Ot R06.00 DYSPNEA, UNSPECIFIED 11/11/2017 CHAS CHUA MD, Ot R06.02 SHORTNESS OF BREATH 11/11/2017 CHAS CHUA MD Ot Z79.01 LABEL FUSER TENDER (CURRENT) USE OF ANTICOAGULANT 11/11/2017 CHAS CHUA MD, Ot Z79.02 LABEL FUSER TENDER (CURRENT) USE OF ANTITHROMBOTI 11/11/2017 CHAS CHUA MD, Ot Z79.84 LABEL FUSER TENDER (CURRENT) USE OF ORAL HYPOGLYC 11/11/2017 CHAS [...] 02/13/2018 CECILIA ELY, SAVANNAH Sinclair Ot V72.81 [id number] CARDIOVASCULAR 02/13/2018 CECILIA ELY, SAVANNAH Sinclair Ot [...] S Ot I25.10 ATHSCL HEART DISEASE OF [place] CORONARY 02/13/2018 DOMITILA WINTERS, LAURA S Ot R53.83 OTHER FATIGUE 02/13/2018 MARÍA SALAMANCA Ot I10 ESSENTIAL (PRIMARY) HYPERTENSION 02/13/2018 MARÍA SALAMANCA Ot I25.10 ATHSCL HEART DISEASE OF [place] CORONARY 02/13/2018 MARÍA SALAMANCA Ot I48.2 CHRONIC ATRIAL FIBRILLATION 02/13/2018 MARÍA SALAMANCA Ot R07.89 OTHER CHEST PAIN 02/13/2018 MARÍA SALAMANCA Ot I10 ESSENTIAL (PRIMARY) HYPERTENSION 02/13/2018 MARÍA SALAMANCA Ot I25.10 ATHSCL HEART DISEASE OF [place] CORONARY 02/13/2018 MARÍA SALAMANCA Ot I48.2 CHRONIC ATRIAL FIBRILLATION 02/13/2018 MARÍA SALAMANCA Ot R07.89 OTHER CHEST PAIN 02/13/2018 Ot E11.65 TYPE 2 DIABETES MELLITUS WITH HYPERGLYCE 02/13/2018 JUAN DIEGO SOTELO Cora BOWSTRING MAKER Ot E11.9 TYPE 2 DIABETES MELLITUS WITHOUT COMPLIC 02/13/2018 MEGHANA SOTELOYASHIRA Shepherd BOWSTRING MAKER Ot I10 ESSENTIAL (PRIMARY) HYPERTENSION 02/13/2018 CHARLY SOTELODeep Shepherd APRN Ot I25.10 ATHSCL HEART DISEASE OF [place] CORONARY 02/13/2018 CHARLY SOTELODeep Shepherd APRN Ot Z12.5 ENCOUNTER FOR SCREENING FOR MALIGNANT NE 02/13/2018 SHIRANDER DO, LAURA S Ot E11.65 TYPE 2 DIABETES MELLITUS WITH HYPERGLYCE 02/13/2018 MARÍA SALAMANCA Ot I10 ESSENTIAL (PRIMARY) HYPERTENSION 02/13/2018 MARÍA SALAMANCA Ot I25.10 ATHSCL HEART DISEASE OF [place] CORONARY 02/13/2018 MARÍA SALAMANCA Ot I48.2 CHRONIC ATRIAL FIBRILLATION 02/13/2018 MARÍA SALAMANCA Ot I65.23 OCCLUSION AND STENOSIS OF BILATERAL [place] 02/13/2018 SHIRANDER DO, LAURA S Ot E11.65 TYPE 2 DIABETES MELLITUS WITH HYPERGLYCE 02/13/2018 SHIRANDER DO, LAURA S Ot E78.5 HYPERLIPIDEMIA, UNSPECIFIED 02/13/2018 SHIRANDER DO, LAURA S Ot I25.10 ATHSCL HEART DISEASE OF [place] CORONARY 02/13/2018 SHIRANDER DO, LAURA S Ot M10.9 GOUT, UNSPECIFIED 02/13/2018 SHIRANDER , LAURA S Ot Z12.5 ENCOUNTER FOR SCREENING FOR MALIGNANT NE 02/13/2018 PREMA VAZQUEZ BOWSTRING MAKER Ot E11.9 TYPE 2 DIABETES MELLITUS WITHOUT COMPLIC 02/13/2018 PREMA VAZQUEZ BOWSTRING MAKER Ot E78.5 HYPERLIPIDEMIA, UNSPECIFIED 02/14/2018 Ot 786.09 [...] APRN Ot I25.10 ATHSCL HEART DISEASE OF [place] CORONARY 02/14/2018 JUAN DIEGO SOTELO APRN Ot Z12.5 ENCOUNTER FOR SCREENING FOR MALIGNANT NE 02/14/2018 MAURY ARAGON DOLINE S Ot E11.65 TYPE 2 DIABETES MELLITUS WITH HYPERGLYCE 02/14/2018 MARÍA SALAMANCA Ot I10 ESSENTIAL (PRIMARY) HYPERTENSION 02/14/2018 MARÍA SALAMANCA Ot I25.10 ATHSCL HEART DISEASE OF [place] CORONARY 02/14/2018 MARÍA SALAMANCA Ot I48.2 CHRONIC ATRIAL FIBRILLATION 02/14/2018 MARÍA SALAMANCA Ot I65.23 OCCLUSION AND STENOSIS OF BILATERAL [place] 02/14/2018 MAURY ARAGON DOLINE S Ot E11.65 TYPE 2 DIABETES MELLITUS WITH HYPERGLYCE 02/14/2018 MAURY ARAGON DOLINE S Ot E78.5 HYPERLIPIDEMIA, UNSPECIFIED 02/14/2018 MAURY ARAGON DOLINE S Ot I25.10 ATHSCL HEART DISEASE OF [place] CORONARY 02/14/2018 ORENDER DO, LAURA S Ot M10.9 GOUT, UNSPECIFIED 02/14/2018 ORENDER DO, LAURA S Ot Z12.5 ENCOUNTER FOR SCREENING FOR MALIGNANT NE 02/14/2018 PREMA VAZQUEZ BOWSTRING MAKER Ot E11.9 TYPE 2 DIABETES MELLITUS WITHOUT COMPLIC 02/14/2018 GEORGEERICAALBERTO Pineda BOWSTRING MAKER Ot E78.5 HYPERLIPIDEMIA, UNSPECIFIED 02/14/2018 ORENDER DO, [...] 02/14/2018 CECILIA ELY, SAVANNAH Sinclair Ot V72.81 [id number] CARDIOVASCULAR 02/14/2018 CECILIA ELY, SAVANNAH Sincalir Ot V74.8 SCREEN-BACTERIAL DIS NEC 02/14/2018 BETH [...] S Ot I25.10 ATHSCL HEART DISEASE OF [place] CORONARY 02/14/2018 ORENDER DO, LAURA S Ot R53.83 OTHER FATIGUE 02/14/2018 MARÍA SALAMANCA Ot I10 ESSENTIAL (PRIMARY) HYPERTENSION 02/14/2018 MARÍA SALAMANCA Ot I25.10 ATHSCL HEART DISEASE OF [place] CORONARY 02/14/2018 MARÍA SALAMANCA Ot I48.2 CHRONIC ATRIAL FIBRILLATION 02/14/2018 MARÍA SALAMANCA Ot R07.89 OTHER CHEST PAIN 02/14/2018 MARÍA SALAMANCA Ot I10 ESSENTIAL (PRIMARY) HYPERTENSION 02/14/2018 MARÍA SALAMANCA Ot I25.10 ATHSCL HEART DISEASE OF [place] CORONARY 02/14/2018 MARÍA SALAMANCA Ot I48.2 CHRONIC ATRIAL FIBRILLATION 02/14/2018 MARÍA SALAMANCA Ot R07.89 OTHER CHEST PAIN 02/14/2018 Ot E11.65 TYPE 2 DIABETES MELLITUS WITH HYPERGLYCE 02/14/2018 JUAN DIEGO SOTELO BOWSTRING MAKER Ot E11.9 TYPE 2 DIABETES MELLITUS WITHOUT COMPLIC 02/14/2018 JUAN DIEGO SOTELO BOWSTRING MAKER Ot I10 ESSENTIAL (PRIMARY) HYPERTENSION 02/14/2018 JUAN DIEGO SOTELO BOWSTRING MAKER Ot I25.10 ATHSCL HEART DISEASE OF [place] CORONARY 02/14/2018 JUAN DIEGO SOTELO BOWSTRING MAKER Ot Z12.5 ENCOUNTER FOR SCREENING FOR MALIGNANT NE 02/14/2018 SHIRANDER , LAURA S Ot E11.65 TYPE 2 DIABETES MELLITUS WITH HYPERGLYCE 02/14/2018 MARÍA SALAMANCA Ot I10 ESSENTIAL (PRIMARY) HYPERTENSION 02/14/2018 MARÍA SALAMANCA Ot I25.10 ATHSCL HEART DISEASE OF [place] CORONARY 02/14/2018 MARÍA SALAMANCA Ot I48.2 CHRONIC ATRIAL FIBRILLATION 02/14/2018 MARÍA SALAMANCA Ot I65.23 OCCLUSION AND STENOSIS OF [place]ILATERAL [place] 02/14/2018 ORENDER DO, LAURA S Ot E11.65 TYPE 2 DIABETES MELLITUS WITH HYPERGLYCE 02/14/2018 ORENDER DO, LAURA S Ot E78.5 HYPERLIPIDEMIA, UNSPECIFIED 02/14/2018 ORENDER DO, LAURA S Ot I25.10 ATHSCL HEART DISEASE OF [place] CORONARY 02/14/2018 ORENDER DO, LAURA S Ot M10.9 GOUT, UNSPECIFIED 02/14/2018 ORENDER DO, LAURA S Ot Z12.5 ENCOUNTER FOR SCREENING FOR MALIGNANT NE 02/14/2018 PREMA VAZQUEZ BOWSTRING MAKER Ot E11.9 TYPE 2 DIABETES MELLITUS WITHOUT COMPLIC 02/14/2018 PREMA VAZQUEZ BOWSTRING MAKER Ot E78.5 HYPERLIPIDEMIA, UNSPECIFIED 02/18/2018 ORENDER DO, [...] 02/18/2018 CECILIA ELY, SAVANNAH Sinclair Ot V72.81 [id number] CARDIOVASCULAR 02/18/2018 CECILIA ELY, SAVANNAH Sinclair Ot [...] S Ot I25.10 ATHSCL HEART DISEASE OF [place] CORONARY 02/18/2018 MAURY ARAGON DOLINE S Ot R53.83 OTHER FATIGUE 02/18/2018 MARÍA SALAMANCA Ot I10 ESSENTIAL (PRIMARY) HYPERTENSION 02/18/2018 MARÍA SALAMANCA Ot I25.10 ATHSCL HEART DISEASE OF [place] CORONARY 02/18/2018 MARÍA SALAMANCA Ot I48.2 CHRONIC ATRIAL FIBRILLATION 02/18/2018 MARÍA SALAMANCA Ot R07.89 OTHER CHEST PAIN 02/18/2018 MARÍA SALAMANCA Ot I10 ESSENTIAL (PRIMARY) HYPERTENSION 02/18/2018 MARÍA SALAMANCA Ot I25.10 ATHSCL HEART DISEASE OF [place] CORONARY 02/18/2018 MARÍA SALAMANCA Ot I48.2 CHRONIC ATRIAL FIBRILLATION 02/18/2018 MARÍA SALAMANCA Ot R07.89 OTHER CHEST PAIN 02/18/2018 Ot E11.65 TYPE 2 DIABETES MELLITUS WITH HYPERGLYCE 02/18/2018 JUAN DIEGO SOTELO BOWSTRING MAKER Ot E11.9 TYPE 2 DIABETES MELLITUS WITHOUT COMPLIC 02/18/2018 JUAN DIEGO SOTELO BOWSTRING MAKER Ot I10 ESSENTIAL (PRIMARY) HYPERTENSION 02/18/2018 JUAN DIEGO SOTELO APRN Ot I25.10 ATHSCL HEART DISEASE OF [place] CORONARY 02/18/2018 JUAN DIEGO SOTELO APRN Ot Z12.5 ENCOUNTER FOR SCREENING FOR MALIGNANT NE 02/18/2018 ORENDER DO, LAURA S Ot E11.65 TYPE 2 DIABETES MELLITUS WITH HYPERGLYCE 02/18/2018 MARÍA SALAMANCA Ot I10 ESSENTIAL (PRIMARY) HYPERTENSION 02/18/2018 MARÍA SALAMANCA Ot I25.10 ATHSCL HEART DISEASE OF [place] CORONARY 02/18/2018 MARÍA SALAMANCA Ot I48.2 CHRONIC ATRIAL FIBRILLATION 02/18/2018 MARÍA SALAMANCA Ot I65.23 OCCLUSION AND STENOSIS OF [place]IL[place]AL [place] 02/18/2018 ORENDER DO, LAURA S Ot E11.65 TYPE 2 DIABETES MELLITUS WITH HYPERGLYCE 02/18/2018 ORENDER DO, LAURA S Ot E78.5 HYPERLIPIDEMIA, UNSPECIFIED 02/18/2018 ORENDER DO, LAURA S Ot I25.10 ATHSCL HEART DISEASE OF [place] CORONARY 02/18/2018 ORENDER DO, LAURA S Ot M10.9 GOUT, UNSPECIFIED 02/18/2018 ORENDER DO, LAURA S Ot Z12.5 ENCOUNTER FOR SCREENING FOR MALIGNANT NE 02/18/2018 PREMA VAZQUEZ BOWSTRING MAKER Ot E11.9 TYPE 2 DIABETES MELLITUS WITHOUT COMPLIC 02/18/2018 PREMA VAZQUEZ R BOWSTRING MAKER Ot E78.5 HYPERLIPIDEMIA, UNSPECIFIED 03/05/2018 ORENDER DO, [...] 03/05/2018 CECILIA ELY, SAVANNAH Sinclair Ot V72.81 [id number] CARDIOVASCULAR 03/05/2018 CECILIA ELY, SAVANNAH Sinclair Ot [...] S Ot I25.10 ATHSCL HEART DISEASE OF [place] CORONARY 03/05/2018 LAURA ARAGON DO Ot R53.83 OTHER [place]IGUE 03/05/2018 MARÍA SALAMANCA Ot I10 ESSENTIAL (PRIMARY) HYPERTENSION 03/05/2018 MARÍA SALAMANCA Ot I25.10 ATHSCL HEART DISEASE OF [place] CORONARY 03/05/2018 MARÍA SALAMANCA Ot I48.2 CHRONIC ATRIAL FIBRILLATION 03/05/2018 MARÍA SALAMANCA Ot R07.89 OTHER CHEST PAIN 03/05/2018 MARÍA SALAMANCA Ot I10 ESSENTIAL (PRIMARY) HYPERTENSION 03/05/2018 MARÍA SALAMANCA Ot I25.10 ATHSCL HEART DISEASE OF [place] CORONARY 03/05/2018 MARÍA SALAMANCA Ot I48.2 CHRONIC ATRIAL FIBRILLATION 03/05/2018 MARÍA SALAMANCA Ot R07.89 OTHER CHEST PAIN 03/05/2018 Ot E11.65 TYPE 2 DIABETES MELLITUS WITH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
[2018-10-30 23:20] VITALS: BP 136/82
[2018-10-30 23:30] VITALS: BP 136/82
[2018-10-31] MEDS ORDERED: morphine INJ 4 MG/ML 1 ML (VIAL/SYRINGE) IV PRN (00:15)
[2018-10-31 03:22] VITALS: BP 128/74
[2018-10-31] MEDS: inSUlin ASPART (NovoLOG) 1 UNIT/0.01 ML (CHARGE PER UNIT) SC SCH ×2 (05:52→11:14)
[2018-10-31] MEDS ORDERED: NITROGLYCERIN 2% OINT 1 GM UNIT DOSE PACKET TOP SCH (06:00)
[2018-10-31 08:00] VITALS: BP 141/85
[2018-10-31 08:03] LABS: CHOLESTEROL 110 MG/DL (< 200); HDL CHOLESTEROL 34 MG/DL (40-60); TRIGLYCERIDES 143 MG/DL (<150); VLDL CHOLESTEROL 29 MG/DL (5-40)
[2018-10-31] MEDS ORDERED: meTOprolol TARTRATE 25 MG (LOPRESSOR) TABLET PO SCH (09:00)
[2018-10-31] MEDS ORDERED: lisINopril 20 MG (PRINIVIL) TABLET PO SCH (09:00)
[2018-10-31] MEDS ORDERED: HYDROCHLOROTHIAZIDE 25 MG (HCTZ) TAB PO SCH (09:00)
[2018-10-31] MEDS ORDERED: CLOPIDOGREL 75 MG (PLAVIX) TABLET PO SCH (09:00)
[2018-10-31] MEDS ORDERED: APIXABAN 5 MG (ELIQUIS) TABLET PO SCH (09:00)
[2018-10-31] MEDS ORDERED: ASPIRIN E.C. 81 MG (ECOTRIN) TAB PO SCH (09:00)
[2018-10-31] MEDS ORDERED: PATIENT MAY USE OWN MEDS, ALL MC SCH (10:30)
--- NOTE | 2018-10-31 10:56 | Consultation-Cardiology ---
HPI-Cardiology Cardiology Consultation Date of Consultation 10/31/18 Date of Admission Time Seen by Provider: 10:56 Indication: chest pain HPI 73 years old gentleman with extensive history of coronary artery disease, hypertension hyperlipidemia, ran out medication, seen Dr. Aragon in the office and has been having recurrent episodes of chest pain, he was sent to the emergency room and admitted, overnight has been feeling better. Had mild right- sided chest discomfort. No palpitation. No syncope or near syncopal episodes. No claudications. Home Medications & Allergies Allergies: Coded Allergies: NKANo Known Allergies (Unverified Allergy, Mild, 09/19/17) Home Medication List Reviewed: Yes JLJ-Saekkf-Nnnaau Hx Patient Social History Marital Status: Employed/Student: retired Alcohol Use: Denies Use Recreational Drug Use: No Smoking Status: Former Smoker Former smoker/When Quit: Sep 01, 1986 Type Used: Cigarettes 2nd Hand Smoke Exposure: No Recent Foreign Travel: No Recent Infectious Disease Expo: No Recent Hopitalizations: No Immunizations Up To Date Tetanus Booster (TDap): Less than 5yrs Date of Pneumonia Vaccine: Feb 10, 2015 Date of Influenza Vaccine: Feb 18, 2017 Past Medical History discussed below Family Medical History Family History: Cardiovascular disease 19 FATHER Hypertension 19 FATHER Review of Systems-General Review of Systems Constitutional: no symptoms reported, see HPI EENTM: see HPI, no symptoms reported Respiratory: see HPI; No cough; dyspnea on exertion; No hemoptysis, No orthopnea, No phlegm, No short of breath, No stridor, No wheezing, No other Cardiovascular: see HPI, chest pain; No edema, No Hx of Intervention, No palpitations, No syncope, No vascular heart diseas, No other Gastrointestinal: no symptoms reported, see HPI Genitourinary: no symptoms reported, see HPI Musculoskeletal: no symptoms reported, see HPI Skin: no symptoms reported, see HPI Psychiatric/Neurological: See HPI Reviewed Test Results Reviewed Test Results Lab Laboratory Tests Test 10/30/18 18:55 10/30/18 21:04 10/31/18 05:51 10/31/18 07:25 Range/Units White Blood Count 7.7 4.3-11.0 10^3/uL Red Blood Count 5.61 4.35-5.85 10^6/uL Hemoglobin 15.8 13.3-17.7 G/DL Hematocrit 47 40-54 % Mean Corpuscular Volume 84 80-99 FL Mean Corpuscular Hemoglobin 28 25-34 PG Mean Corpuscular Hemoglobin Concent 34 32-36 G/DL Red Cell Distribution Width 16.0 H 10.0-14.5 % Platelet Count 237 130-400 10^3/uL Mean Platelet Volume 10.1 7.4-10.4 FL Neutrophils (%) (Auto) 62 42-75 % Lymphocytes (%) (Auto) 24 12-44 % Monocytes (%) (Auto) 13 H 0-12 % Eosinophils (%) (Auto) 1 0-10 % Basophils (%) (Auto) 0 0-10 % Neutrophils # (Auto) 4.8 1.8-7.8 X 10^3 Lymphocytes # (Auto) 1.9 1.0-4.0 X 10^3 Monocytes # (Auto) 1.0 0.0-1.0 X 10^3 Eosinophils # (Auto) 0.1 0.0-0.3 10^3/uL Basophils # (Auto) 0.0 0.0-0.1 10^3/uL Prothrombin Time 14.4 12.2-14.7 SEC INR Comment 1.1 0.8-1.4 Activated Partial Thromboplast Time 30 24-35 SEC Sodium Level 141 135-145 MMOL/L Potassium Level 3.7 3.6-5.0 MMOL/L Chloride Level 105 98-107 MMOL/L Carbon Dioxide Level 22 21-32 MMOL/L Anion Gap 14 5-14 MMOL/L Blood Urea Nitrogen 16 7-18 MG/DL Creatinine 0.90 0.60-1.30 MG/DL Estimat Glomerular Filtration Rate > 60 BUN/Creatinine Ratio 18 Glucose Level 134 H 70-105 MG/DL Calcium Level 9.8 8.5-10.1 MG/DL Corrected Calcium 8.5-10.1 MG/DL Magnesium Level 2.1 1.8-2.4 MG/DL Total Bilirubin 1.1 H 0.1-1.0 MG/DL Aspartate Amino Transf (AST/SGOT) 19 5-34 U/L Alanine Aminotransferase (ALT/SGPT) 24 0-55 U/L Alkaline Phosphatase 87 40-136 U/L Myoglobin 38.5 10.0-92.0 NG/ML Troponin I < 0.028 0.046 H < 0.028 <0.028 NG/ML Total Protein 7.8 6.4-8.2 GM/DL Albumin 4.6 H 3.2-4.5 GM/DL Glucometer 141 H 70-110 MG/DL Total Creatine Kinase 42 30-200 U/L Triglycerides Level 143 <150 MG/DL Cholesterol Level 110 < 200 MG/DL LDL Cholesterol Direct 63 1-129 MG/DL VLDL Cholesterol 29 5-40 MG/DL HDL Cholesterol 34 L 40-60 MG/DL Test 10/31/18 10:24 Range/Units Glucometer 233 H 70-110 MG/DL Physical Exam Physical Exam Vital Signs Vital Signs - First Documented 10/30/18 10/30/18 10/30/18 18:51 19:00 23:10 Temp 98.0 Pulse 90 Resp 18 B/P (MAP) 126/75 (92) Pulse Ox 98 O2 Delivery Room Air O2 Flow Rate 2.0 Capillary Refill : Less Than 3 Seconds Height, Weight, BMI Height: 5'8.00" Weight: 208lbs. 0.0oz. 94.807587mc; 31.6 BMI Method:Stated General Appearance: No Apparent Distress, WD/WN Eyes: Bilateral Eye Normal Inspection, Bilateral Eye PERRL, Bilateral Eye EOMI HEENT: PERRL/EOMI, Normal ENT Inspection Neck: Normal Inspection Respiratory: Chest Non Tender, Lungs Clear, Normal Breath Sounds, No Accessory Muscle Use, No Respiratory Distress Cardiovascular: No Edema, No Murmur, Irregularly Irregular (normal rate) Gastrointestinal: Normal Bowel Sounds, Non Tender, Soft Back: Normal Inspection, No CVA Tenderness, No Vertebral Tenderness Extremity: Normal Inspection, No Pedal Edema Neurologic/Psychiatric: Alert, Oriented x3, No Motor/Sensory Deficits, Normal 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 Agree with conservative management and monitoring him. Discussed compliance with medications. Coronary artery disease-cardiac catheterization done on October 22, [address] [facility] revealing left main with 25 percent narrowing. LAD had apical 75-80 percent narrowing reduced to less than 25 percent following balloon angioplasty. First diagonal with 30-40 percent narrowing. Ramus branch with mild 25 percent narrowing. Circumflex artery with 30-40 percent diffuse narrowing and small system. RCA was moderately large vessel with 20-25 percent stenosis. Posterior lateral branch had 80 percent narrowing reduced to less than 25 percent following balloon angioplasty. PDA had 70 percent mid narrowing reduced to less than 25 percent following balloon angioplasty. her peak cardiac catheterization done in May 2016 showing moderate to severe coronary artery disease, mainly small vessels not amendable to intervention. Medical therapy is recommended no intervention is warranted, I am planning to proceed with Lexiscan stress test as an outpatient. Next Paroxysmal atrial fibrillation, maintained on Eliquis, has stopped taking the medication due to cost, I will change him to Pradaxa and provide him with a coupon for 30 day supplies and we discussed compliance with medication finding the the best medication that he can afford and tolerate [id number] score is 3, yearly risk of stroke without oral anticoagulation is 3.2 percent, continue on current medications and monitor Hypertension, Better control at this time, monitor Hyperlipidemia, continue on current medication and monitor Status post basal cell carcinoma extraction procedure done at last week. Depression/anxiety-managed by primary care physician Diabetes mellitus, followed and managed by primary care physician Discussed with the patient amount of pain, he is to be discharged today and follow-up as an outpatient, he was evaluated and seen with the presence of Dr. ARAGON and I discussed with Dr. Aragon and the patient in the management plan Clinical Quality Measures AMI/AHF: ASA po Prior to arrival: No DVT/VTE Risk/Contraindication: Risk Factor Score Per Nursin RFS Level Per Nursing on Admit: 4+=Very High SKYLAR CAMOPS MD Oct 31, 2018 10:56
--- NOTE | 2018-10-31 10:59 | Short Stay Summary ---
History of Present Illness History of Present Illness Reason for visit/HPI This is a 73-year-old gentleman with atrial fibrillation and multi vessel coronary artery disease who presented to the emergency room with 2 days of chest pain. He described the pain as a bandlike tightness across his chest that radiated into his neck and upper arms. The pain was worse with exertion. He also had some mild shortness of air and nausea associated with it. He also complained of some lightheadedness. He reported having headaches this past week which is unusual for him. He did not take his medications the morning of his ER visit as he was busy transporting someone to [place]. He also reported quitting Eliquis sometime in the past couple months due to the inability to afford the co-pays. He has had problems with noncompliance. He does have mild dementia and is on donepezil. He initially presented to my office for a BP check but due to his complaint of chest pain he was evaluated by my nurse practitioner and sent for a workup. A troponin and d-dimer were performed around 16:00. The d-dimer was negative but the troponin returned at 0.047 with the normal cutoff of 0.028 (same reference ranges the hospital). Patient was contacted by my office and advised to present to the emergency room. Patient arrived to the emergency room hypertensive with ongoing chest pain rated around 6/10. He was given nitro which did improved his blood pressure and chest pain, however, he had a rebound of his blood pressure with associated chest pain so nitropaste was placed and it was decided to admit the patient for observation and cardiac evaluation. His initial troponin in the emergency room was negative but his second troponin was also elevated at 0.046. Review of his chart notes a cardiac catheterization from May 2016 demonstrating small vessel disease but no obstructive disease. His reports he has had angioplasty in the past. Date of Admission Oct 30, 2018 at 22:00 Date of Discharge Oct 30, 2018 Time Seen by Provider: 10:50 Attending Physician Laura Aragon DO Admitting Physician Laura Aragon DO Consult Allergies and Home Medications Allergies Coded Allergies: NKANo Known Allergies (Unverified Allergy, Mild, 09/19/17) Home Medications Acetaminophen 500 Mg Tablet, 500-1,000 MG PO Q6H PRN for PAIN-MILD, (Reported) TAKES 1-2 (500 MG) TABLETS Allopurinol 100 Mg Tablet, 100 MG PO DAILY, (Reported) Amlodipine Besylate 10 Mg Tablet, 10 MG PO DAILY, (Reported) Amoxicillin 500 Mg Capsule, 500 MG PO TID Prescribed by: SOHAIL OREILLY on 10/19/17 1336 Apixaban 5 Mg Tablet, 5 MG PO BID, (Reported) Atorvastatin Calcium 10 Mg Tablet, 10 MG PO DAILY, (Reported) Cetirizine HCl 10 Mg Tablet, 10 MG PO DAILY, (Reported) Clopidogrel Bisulfate 75 Mg Tablet, 75 MG PO DAILY, (Reported) Donepezil HCl 5 Mg Tablet, 5 MG PO HS, (Reported) Doxazosin Mesylate 4 Mg Tablet, 4 MG PO HS, (Reported) Doxycycline Hyclate 100 Mg Tablet, 100 MG PO BID Prescribed by: SOHAIL OREILLY on 07/22/182218 Escitalopram Oxalate 5 Mg Tablet, 10 MG PO DAILY Prescribed by: LAURA ARAGON on 10/07/17 1232 Finasteride 5 Mg Tablet, 5 MG PO DAILY, (Reported) Hydrocodone Bit/Acetaminophen 1 Tab Tab, 1 EACH PO Q4-6HR PRN for PAIN-MODERATE Prescribed by: BRUNO ZARAGOZA on 03/05/18 1703 Hydrocodone/Acetaminophen 1 Each Tablet, 1 EACH PO Q4H PRN for PAIN-SEVERE Prescribed by: SOHAIL OREILLY on 10/19/17 1342 Lisinopril 20 Mg Tablet, 20 MG PO DAILY@0900 Prescribed by: LAURA ARAGON on 10/07/17 1232 Metformin HCl 1,000 Mg Tablet, 1,000 MG PO BID, (Reported) Metoprolol Tartrate 25 Mg Tablet, 25 MG PO BID, (Reported) Nitroglycerin 0.4 Mg Tab.subl, 0.4 MG SL UD PRN for CHEST PAIN, (Reported) Prednisone 20 Mg Tab, 40 MG PO DAILY Prescribed by: SOHAIL OREILLY on 07/22/182218 Ranitidine HCl 150 Mg Tablet, 150 MG PO DAILY PRN for HEARTBURN, (Reported) Patient Home Medication List Home Medication List Reviewed: Yes Past Avzbwff-Fmbggk-Nlnwke Hx Patient Social History Marrital Status: Alcohol Use: Denies Use Number of Drinks Today: AA Alcohol Beverage of Choice: Beer Recreational Drug Use: No Smoking Status: Former Smoker Former Smoker, Quit: Aug 07, 1987 Type Used: Cigarettes 2nd Hand Smoke Exposure: No Recent Foreign Travel: No Contact w/other who traveled: No Recent Hopitalizations: No Recent Infectious Disease Expo: No Immunizations Up To Date Tetanus Booster (TDap): Less than 5yrs Pediatric: Yes Date of Pneumonia Vaccine: Feb 10, 2015 Date of Influenza Vaccine: Feb 18, 2017 Seasonal Allergies Seasonal Allergies: Yes (POLLEN ) Surgeries Yes (HERNIA SURGERY, HEMORRHOIDS, EYE MUSCLE SURGERY, skin graft) Cardiac (angioplasty), Cystectomy, Gallbladder Respiratory No (pt states he has difficulty sleeping lying down, prefers to sleep upright) Currently Using CPAP: No Currently Using BIPAP: No Cardiovascular Yes Atrial Fibrillation, Chronic Edema/Swelling, Hypertension Neurological Yes Dementia Reproductive System Hx Reproductive Disorders: No Sexually Transmitted Disease: No HIV/AIDS: No Genitourinary Yes Benign Prostatic Hyperpl Gastrointestinal Yes Hiatal Hernia Musculoskeletal No Degenerate Disk Disease, Arthritis, Chronic Back Pain, Gout Endocrine History of Endocrine Disorders: Yes Endocrine Disorders: Diabetes, Non-Insulin dep HEENT History of HEENT Disorders: Yes HEENT Disorders: Cataract Loss of Vision: Denies Hearing Impairment: Hard of Hearing Cancer Yes Skin Did You Recieve Any Treatments: Yes Type of Treatment: Surgical Intervention Psychosocial History of Psychiatric Problem: Yes Behavioral Health Disorders: Anxiety, Depression Integumentary History of Skin or Integumenta: Yes (skin graft to left graham, BASAL CELL CARCINOMAS *10) Blood Transfusions History of Blood Disorders: No Adverse Reaction to a Blood Tr: No (N/A) Family Medical History Family Hx: Cardiovascular disease 19 FATHER Hypertension 19 FATHER Review of Systems Constitutional: weakness EENTM: No see HPI, No no symptoms reported, No ear discharge, No hearing loss, No ear pain, No blurred vision, No double vision, No eye pain, No tearing, No vision loss, No dental problems, No hoarseness, No mouth pain, No mouth swelling, No epistaxis, No nose congestion, No nose pain, No throat pain, No throat swelling, No other Respiratory: No no symptoms reported, No see HPI, No cough, No dyspnea on exertion, No hemoptysis, No orthopnea, No phlegm, No short of breath, No stridor, No wheezing, No other Cardiovascular: chest pain Gastrointestinal: No RUQ, No LUQ, No RLQ, No LLQ, No no symptoms reported, No see HPI, No abdominal pain, No constipation, No diarrhea, No dysphagia, No hematemesis, No heartburn, No jaundice, No loss of appetite, No melena, No nausea, No vomiting, No other Musculoskeletal: No no symptoms reported, No see HPI, No back pain, No gout, No joint pain, No joint swelling, No muscle pain, No muscle stiffness, No muscle cr amps, No muscle twitching, No muscle weakness, No neck pain, No other Skin: No no symptoms reported, No see HPI, No change in color, No change in hair/nails, No dryness, No hx of skin cancer, No lesions, No lumps, No pruritus, No rash, No other Psychiatric/Neurological: Tremors (intermittent) Physical Exam Vital Signs Vital Signs - First Documented 10/30/18 10/30/18 10/30/18 18:51 19:00 23:10 Temp 98.0 Pulse 90 Resp 18 B/P (MAP) 126/75 (92) Pulse Ox 98 O2 Delivery Room Air O2 Flow Rate 2.0 Capillary Refill : Less Than 3 Seconds Height, Weight, BMI Height: 5'8.00" Weight: 208lbs. 0.0oz. [id number]; 31.6 BMI Method:Stated General Appearance: No Apparent Distress HEENT: Normal ENT Inspection Neck: Supple Respiratory: Lungs Clear Cardiovascular: Regular Rate, Rhythm, Systolic Murmur, Gallop/S4 Gastrointestinal: Normal Bowel Sounds, Non Tender, Soft Rectal: Deferred Back: No CVA Tenderness Extremity: Non Tender, No Calf Tenderness, No Pedal Edema Neurologic/Psychiatric: Alert, Oriented x3 Skin: Warm/Dry Comments Laboratory Tests 10/30/18 18:55: White Blood Count 7.7, Red Blood Count 5.61, Hemoglobin 15.8, Hematocrit 47, Mean Corpuscular Volume 84, Mean Corpuscular Hemoglobin 28, Mean Corpuscular Hemoglobin Concent 34, Red Cell Distribution Width 16.0H, Platelet Count 237, Mean Platelet Volume 10.1, Neutrophils (%) (Auto) 62, Lymphocytes (%) (Auto) 24, Monocytes (%) (Auto) 13H, Eosinophils (%) (Auto) 1, Basophils (%) (Auto) 0, Neut rophils # (Auto) 4.8, Lymphocytes # (Auto) 1.9, Monocytes # (Auto) 1.0, Eosinophils # (Auto) 0.1, Basophils # (Auto) 0.0, Prothrombin Time 14.4, INR Comment 1.1, Activated Partial Thromboplast Time 30, Sodium Level 141, Potassium Level 3.7, Chloride Level 105, Carbon Dioxide Level 22, Anion Gap 14, Blood Urea Nitrogen 16, Creatinine 0.90, Estimat Glomerular Filtration Rate > 60, BU N/Creatinine Ratio 18, Glucose Level 134H, Calcium Level 9.8, Corrected Calcium , Magnesium Level 2.1, Total Bilirubin 1.1H, Aspartate Amino Transf (AST/SGOT) 19, Alanine Aminotransferase (ALT/SGPT) 24, Alkaline Phosphatase 87, Myoglobin 38.5, Troponin I < 0.028, Total Protein 7.8, Albumin 4.6H 10/30/18 21:04: Troponin I 0.046H 10/31/18 05:51: Glucometer 141H 10/31/18 07:25: Troponin I < 0.028, Total Creatine Kinase 42, Triglycerides Level 143, Ch olesterol Level 110, LDL Cholesterol Direct 63, VLDL Cholesterol 29, HDL Cholesterol 34L 10/31/18 10:24: Glucometer 233H Clinical Quality Measures AMI/AHF: ASA po Prior to arrival: No DVT/VTE Risk/Contraindication: Risk Factor Score Per Nursin RFS Level Per Nursing on Admit: 4+=Very High Short Stay Diagnosis Discharge Diagnosis-Short Stay Final Discharge Diagnosis: 1. Chest Pain, Likely cardiac in etiology from small vessel disease and patient's noncompliance with medication resulting in hypertensive urgency affecting the small vessels, no evidence of acute coronary event 2. Hypertensive Urgency--improved 3. Diabetes mellitus II--blood sugar stable 4. Vascular Dementia--stable 5. Noncompliance with medications--long discussion about finding medications that are cost effective for him and him taking his medications routinely--will try pradaxa on discharge Conclusion Labs Laboratory Tests 10/30/18 18:55: White Blood Count 7.7, Red Blood Count 5.61, Hemoglobin 15.8, Hematocrit 47, Mean Corpuscular Volume 84, Mean Corpuscular Hemoglobin 28, Mean Corpuscular Hemoglobin Concent 34, Red Cell Distribution Width 16.0H, Platelet Count 237, Mean Platelet Volume 10.1, Neutrophils (%) (Auto) 62, Lymphocytes (%) (Auto) 24, Monocytes (%) (Auto) 13H, Eosinophils (%) (Auto) 1, Basophils (%) (Auto) 0, Neutrophils # (Auto) 4.8, Lymphocytes # (Auto) 1.9, Monocytes # (Auto) 1.0, Eosinophils # (Auto) 0.1, Basophils # (Auto) 0.0, Prothrombin Time 14.4, INR Comment 1.1, Activated Partial Thromboplast Time 30, Sodium Level 141, Potassium Level 3.7, Chloride Level 105, Carbon Dioxide Level 22, Anion Gap 14, Blood Urea Nitrogen 16, Creatinine 0.90, Estimat Glomerular Filtration Rate > 60, BUN/Creatinine Ratio 18, Glucose Level 134H, Calcium Level 9.8, Corrected Calcium , Magnesium Level 2.1, Total Bilirubin 1.1H, Aspartate Amino Transf (AST/SGOT) 19, Alanine Aminotransferase (ALT/SGPT) 24, Alkaline Phosphatase 87, Myoglobin 38.5, Troponin I < 0.028, Total Protein 7.8, Albumin 4.6H 10/30/18 21:04: Troponin I 0.046H 10/31/18 05:51: Glucometer 141H 10/31/18 07:25: Troponin I < 0.028, Total Creatine Kinase 42, Triglycerides Level 143, Cholesterol Level 110, LDL Cholesterol Direct 63, VLDL Cholesterol 29, HDL Cholesterol 34L 10/31/18 10:24: Glucometer 233H Conclusion/Plan This is a 73-year-old gentleman with atrial fibrillation and multi vessel coronary artery disease who presented to the emergency room with 2 days of chest pain. He described the pain as a bandlike tightness across his chest that radiated into his neck and upper arms. The pain was worse with exertion. He also had some mild shortness of air and nausea associated with it. He also complained of some lightheadedness. He reported having headaches this past week which is unusual for him. He did not take his medications the morning of his ER visit as he was busy transporting someone to [place]. He also reported quitting Eliquis sometime in the past couple months due to the inability to afford the co-pays. He has had problems with noncompliance. He does have mild dementia and is on donepezil. He initially presented to my office for a BP check but due to his complaint of chest pain he was evaluated by my nurse practitioner and sent for a workup. A troponin and d-dimer were performed around 16:00. The d-dimer was negative but the troponin returned at 0.047 with the normal cutoff of 0.028 (same reference ranges the hospital). Patient was contacted by my office and advised to present to the emergency room. Patient arrived to the emergency room hypertensive with ongoing chest pain rated around 6/10. He was given nitro which did improved his blood pressure and chest pain, however, he had a rebound of his blood pressure with associated chest pain so nitropaste was placed and it was decided to admit the patient for observation and cardiac evaluation. His initial troponin in the emergency room was negative but his second troponin was also elevated at 0.046. Review of his chart notes a cardiac catheterization from May 2016 demonstrating small vessel disease but no obstructive disease. His reports he has had angioplasty in the past. He was admitted to [facility] on telemetry. His repeat troponin was normal and his EKG showed no acute changes. Cardiology agreed that his chest pain was likely from him stopping his eliquis and not taking his blood pressure medications and that the elevated blood pressure affected the known small vessel disease causing the chest pain as well as the mild bump in his troponin. Both cardiology and myself had a long discussion with the patient about medical compliance as well as him notifying us if he cannot afford his medications. We have decided on pradaxa on discharge and he will follow up with cardiology in 2 weeks to schedule and outpatient stress test. LAURA ARAGON DO Oct 31, 2018 10:59
[2018-10-31] MEDS ORDERED: DABI150C5 PO (11:14)
--- NOTE | 2018-10-31 11:16 | Discharge Inst-Simple/Standard ---
Discharge Inst-Standard Discharge Medications New, Converted or Re-Newed RX: Transmitted to Pharmacy Patient Instructions/Follow Up Plan of Care/Instructions/FU: Fwup with me in [address] Reilly in 2 weeks Activity as Tolerated: Yes Discharge Diet: ADA Diet, Cardiac Diet ANA RAMESH DO Oct 31, 2018 11:16
[2018-10-31 12:00] VITALS: BP 148/87
[2018-10-31 13:05] VITALS: BP 148/87
--- NOTE | 2018-10-31 13:05 | NUR ---
LISSET BOBBY demonstrates understanding of discharge instructions and accurately returns instructions upon questioning. Copy of Post-Discharge Instructions and Medication Discharge Instructions given to PATIENT. LISSET BOBBY is able to manage continuing needs after discharge. Patients belongings returned to [facility]. Skin dry and intact; no breakdown noted. Patient discharged from 422-1 on at 1305. LISSET BOBBY left floor via WHEELCHAIR, accompanied by STAFF.
[2018-10-31] MEDS ORDERED: ATORVASTATIN 10 MG (LIPITOR) TABLET PO SCH (21:00)
== END 2018-10-31 11:10 | disposition home or self-care (01) ==
LOC: EDUNIT# 18:47 → ER 18:48 → UNDOADMOB 22:00 → 4TH 22:00 → UNDODISOB 10-31 13:05
PROVIDERS: ADMIT Family Medicine; ATTEND Family Medicine
DX: R07.9 Chest pain, unspecified (principal); I16.0 Hypertensive urgency; I10 Essential (primary) hypertension; I25.10 Atherosclerotic heart disease of native coronary artery without angina pectoris; I48.0 Paroxysmal atrial fibrillation; E11.9 Type 2 diabetes mellitus without complications; E78.5 Hyperlipidemia, unspecified; R60.9 Edema, unspecified; R06.02 Shortness of breath; R11.0 Nausea; R42 Dizziness and giddiness; R51 Headache; F01.50 Vascular dementia, unspecified severity, without behavioral disturbance, psychotic disturbance, mood disturbance, and anxiety; N40.0 Benign prostatic hyperplasia without lower urinary tract symptoms; F32.9 Major depressive disorder, single episode, unspecified; F41.9 Anxiety disorder, unspecified; Z79.84 Long term (current) use of oral hypoglycemic drugs; Z79.899 Other long term (current) drug therapy; Z87.891 Personal history of nicotine dependence; Z91.14 Patient's other noncompliance with medication regimen
CPT/HCPCS: 36415; 71045; 80053; 80061; 82550; 82962; 83735; 83874; 84484; 85025; 85610; 85730; 93005; 93041; G0378

== ENCOUNTER → 2018-12-31 | Outpatient (CLI) | payer MEDICARE ==
[~2018-12-31] VITALS: Ht 172.7 cm; Wt 93.9 kg
[~2018-12-31] MED LIST changes: +CATHETER FLUSH 10 ML SYR IV PRN; +DABI150C5 PO; +RANI-613 PO; -RANI150T46 PO; +REGADENOSON 0.4 MG/5 ML SYR (LEXISCAN) IV ONE
[2018-12-31 09:01] VITALS: BP 169/115
--- NOTE | 2018-12-31 19:09 | STRESS TEST ---
DATE OF SERVICE: 12/31/2018 LEXISCAN MYOVIEW STRESS TEST REPORT REFERRING PHYSICIAN: Dr. Aragon Baseline heart rate is 73, baseline blood pressure 169/110. Baseline EKG is sinus rhythm with no ischemic changes. In summary, the patient was injected with 10.92 mCi of technetium-99 Myoview and the resting images were obtained. Then, the patient received 0.4 mg of Lexiscan followed by 28.9 mCi of technetium-99 Myoview. Throughout the test, there were no EKG changes. The resting and stress images were reviewed and compared in the short axis, horizontal long axis, and vertical long axis views. Review of the images showed increased intestinal uptake affecting the quality of the images. There is mild decreased uptake at the inferior wall and inferoapical segment. No significant ischemia was noted. SSS is 0. TID value 1.12. On the gated images, the left ventricle appeared to be prominent with end-diastolic volume 111 mL and systolic volume 68 mL. Diffuse left ventricular hypokinesia with calculated ejection fraction 38%. CONCLUSION: 1. The patient tolerated Lexiscan well. 2. Increased intestinal uptake affecting the quality of the images, there is decreased uptake involving the inferior wall and inferior apex, no significant ischemia was noted. 3. Diffuse left ventricular hypokinesia with calculated ejection fraction 38%. Job ID: [id number] DocumentID: [id number] Dictated Date: 12/31/2018 15:56:02 Book Editor Date: 12/31/2018 19:08:20 Dictated By: SKYLAR CAMPOS MD
== END ==
LOC: CARD 07:11
PROVIDERS: ATTEND Physician Assistant
DX: I25.10 Atherosclerotic heart disease of native coronary artery without angina pectoris (principal); I65.29 Occlusion and stenosis of unspecified carotid artery; K21.9 Gastro-esophageal reflux disease without esophagitis; I11.9 Hypertensive heart disease without heart failure
CPT/HCPCS: 78452; 93017

== ENCOUNTER → 2019-06-25 | Outpatient (CLI) | payer MEDICARE ==
[~2019-06-25] MED LIST changes: -ACET-2469 PO; +ACET-2715 PO; -CATHETER FLUSH 10 ML SYR IV PRN; +LISI1TAB25 PO; -REGADENOSON 0.4 MG/5 ML SYR (LEXISCAN) IV ONE
[2019-06-25 11:38] LABS: BASOPHILS % (AUTO) 0 % (0-10); EOSINOPHILS # (AUTO) 0.1 10^3/uL (0.0-0.3); EOSINOPHILS % (AUTO) 1 % (0-10); HEMATOCRIT 46 % (40-54); HEMOGLOBIN 16.1 G/DL (13.3-17.7); LYMPHOCYTES # (AUTO) 1.2 X 10^3 (1.0-4.0); LYMPHOCYTES % (AUTO) 23 % (12-44); MEAN CORPUSCULAR HEMOGLOBIN 30 PG (25-34); MEAN CORPUSCULAR HGB CONC 35 G/DL (32-36); MEAN CORPUSCULAR VOLUME 86 FL (80-99); MEAN PLATELET VOLUME 9.6 FL (7.4-10.4); MONOCYTES # (AUTO) 0.5 X 10^3 (0.0-1.0); MONOCYTES % (AUTO) 10 % (0-12); NEUTROPHILS # (AUTO) 3.5 X 10^3 (1.8-7.8); NEUTROPHILS % (AUTO) 66 % (42-75); PLATELET COUNT 152 10^3/uL (130-400); RED CELL DISTRIBUTION WIDTH 13.5 % (10.0-14.5); WHITE BLOOD COUNT 5.3 10^3/uL (4.3-11.0)
[2019-06-25 11:51] LABS: ALANINE AMINOTRANSFERASE 22 U/L (0-55); ALBUMIN 4.1 GM/DL (3.2-4.5); ALKALINE PHOSPHATASE 82 U/L (40-136); BUN/CREATININE RATIO 15; CALCIUM 8.8 MG/DL (8.5-10.1); CARBON DIOXIDE 20 MMOL/L (21-32); CHLORIDE 107 MMOL/L (98-107); CHOLESTEROL 138 MG/DL (< 200); CREATININE SERUM 0.81 MG/DL (0.60-1.30); GFR ESTIMATED > 60; GLUCOSE 236 MG/DL (70-105); HDL CHOLESTEROL 38 MG/DL (40-60); POTASSIUM 3.7 MMOL/L (3.6-5.0); SODIUM 137 MMOL/L (135-145); TOTAL PROTEIN 7.2 GM/DL (6.4-8.2); TRIGLYCERIDES 140 MG/DL (<150); VLDL CHOLESTEROL 28 MG/DL (5-40)
== END ==
LOC: LAB 11:04
PROVIDERS: ATTEND Family Medicine
DX: E11.65 Type 2 diabetes mellitus with hyperglycemia (principal); I10 Essential (primary) hypertension; E78.2 Mixed hyperlipidemia
CPT/HCPCS: 36415; 80053; 80061; 83036; 85025

== ENCOUNTER 2019-09-15 22:41 | Observation (INO) | payer MEDICARE ==
[~2019-09-15] VITALS: Ht 68 cm; Wt 93.0 kg
[~2019-09-15 22:41] MED LIST changes: -CETI10TA20 PO; +CETI10TA21 PO
--- NOTE | 2019-09-15 23:10 | ED Cardiac General ---
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 C/O SHORTNESS OF BREATH SINCE LAST NIGHT HAS HAD MINIMALLY PRODUCTIVE COUGH, BUT UNABLE TO STATE WHEN THAT STARTED STATES HE HAS "BEEN HAVING TROUBLE BREATHING AND NO ENERGY" STATES HIS SHORTNESS OF BREATH IS WORSE WITH EXERTION STATES HE HAS BEEN "REAL COLD" --DESCRIBES CHILLS, BUT HAS NOT CHECKED HIS TEMP STATES "I FEEL LIKE I'M BEING SMASHED" "IN MY THROAT AND THROUGH MY CHEST MOSTLY" "IT FEELS LIKE MY THROAT ISN'T OPEN WIDE ENOUGH TO BREATHE GOOD" STATES HE "GUESSES" THAT HIS CHEST IS HURTING--RATES PAIN 5/10 NO SWELLING IN LEGS/ FEET NO SWEATS NO GI SYMPTOMS NO DIZZINESS PT HAS ATRIAL FIBRILLATION AND IS ON ELIQUIS PT ALSO HAS HTN PT IS ALSO DIABETIC--ON ORAL MEDICATIONS PT HAS HAD CARDIAC CATH AND STATES BALLOON ANGIOPLASTY X 2 PT HAS NOT TAKEN ANY OF HIS EVENING MEDICATIONS PT HAS NOT CHECKED HIS BLOOD SUGAR PT HAS NOT STAYED AT HIM DURING COVID-19 PANDEMIC--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 --TAKES PEOPLE TO AND [facility], AND DR VISITS, ETC. 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 ( THIS WAS VERIFIED ON REVIEW OF HER RECORD ) Allergies and Home Medications Allergies Coded Allergies: NKANo Known Allergies (Unverified Allergy, Mild, 09/19/17) Home Medications Acetaminophen 500 Mg Tablet, 500-1,000 MG PO Q6H PRN for PAIN-MILD, (Reported) TAKES 1-2 (500 MG) TABLETS Allopurinol 100 Mg Tablet, 100 MG PO DAILY, (Reported) Amlodipine Besylate 10 Mg Tablet, 10 MG PO DAILY, (Reported) Atorvastatin Calcium 10 Mg Tablet, 10 MG PO DAILY, (Reported) Cetirizine HCl 10 Mg Tablet, 10 MG PO DAILY, (Reported) Dabigatran Etexilate Mesylate 150 Mg Capsule, 150 MG PO BID Prescribed by: ANA RAMESH on 10/31/18 1114 Donepezil HCl 5 Mg Tablet, 5 MG PO HS, (Reported) Doxazosin Mesylate 4 Mg Tablet, 4 MG PO HS, (Reported) Escitalopram Oxalate 5 Mg Tablet, 10 MG PO DAILY Prescribed by: ANA RAMESH on 10/07/17 1232 Finasteride 5 Mg Tablet, 5 MG PO DAILY, (Reported) Lisinopril 20 Mg Tablet, 20 MG PO DAILY@0900 Prescribed by: ANA RAMESH on 10/07/17 1232 Metformin HCl 1,000 Mg Tablet, 1,000 MG PO BID, (Reported) Metoprolol Tartrate 25 Mg Tablet, 25 MG PO BID, (Reported) Nitroglycerin 0.4 Mg Tab.subl, 0.4 MG SL UD PRN for CHEST PAIN, (Reported) Ranitidine HCl 150 Mg Tablet, 150 MG PO DAILY PRN for HEARTBURN, (Reported) Patient Home Medication List Home Medication List Reviewed: Yes Review of Systems Review of Systems Constitutional: see HPI, chills, malaise, weakness EENTM: See HPI, Throat Pain Respiratory: See HPI, Cough, Shortness of Air, SOA With Exertion, SOA at Rest; Denies Wheezing Cardiovascular: See HPI, Chest Pain; Denies Edema, Denies Lightheadedness, Denies Syncope Gastrointestinal: No Symptoms Reported; Denies Abdominal Pain, Denies Diarrhea, Denies Nausea, Denies Vomiting Genitourinary: No Symptoms Reported Musculoskeletal: no symptoms reported; No back pain Skin: no symptoms reported Psychiatric/Neurological: No Symptoms Reported; Denies Headache, Denies Numbness, Denies Paresthesia, Denies Weakness Endocrine: No Symptoms Reported Hematologic/Lymphatic: No Symptoms Reported Past Najsjgq-Nahhno-Ghnxyc Hx Past Med/Social Hx: Reviewed and Corrections made Patient Social History Alcohol Use: Past History ("NONE FOR 30 YEARS", PER PT 09/15/19) Alcohol Beverage of Choice: Beer Recreational Drug Use: No Smoking Status: Former Smoker ("NONE FOR 30 YEARS" PER PT 09/15/19) Type Used: Cigarettes Former Smoker, Quit: Aug 07, 1987 2nd Hand Smoke Exposure: No Recent Hopitalizations: No Immunizations Up To Date Tetanus Booster (TDap): Less than 5yrs PED Vaccines UTD: Yes Date of Pneumonia Vaccine: Feb 10, 2015 Date of Influenza Vaccine: Feb 18, 2017 Seasonal Allergies Seasonal Allergies: Yes (POLLEN ) Past Medical History Surgeries: Yes (HERNIA; HEMORRHOIDS;EYE MUSCLE SURGERY;SKIN GRAFT;CARDIAC CATH- ANGIOPLASTY ) Abdominal, Cardiac, Gallbladder, Rectal Respiratory: No (pt states he has difficulty sleeping lying down, prefers to sleep upright) Currently Using CPAP: No Currently Using BIPAP: No Cardiac: Yes (CARDIAC CATHS--ANGIOPLASTY X 2--LAST CATH 2016-NO INTERVENTION;CHF) Atrial Fibrillation, Chronic Edema/Swelling, Coronary Artery Disease, High Cholesterol, Hypertension Neurological: Yes Dementia Reproductive Disorders: No Sexually Transmitted Disease: No HIV/AIDS: No Genitourinary: Yes Benign Prostatic Hyperpl Gastrointestinal: Yes Hiatal Hernia Musculoskeletal: Yes Degenerate Disk Disease, Arthritis, Chronic Back Pain, Gout Endocrine: Yes Diabetes, Non-Insulin dep HEENT: Yes Cataract Loss of Vision: Denies Hearing Impairment: Hard of Hearing Cancer: Yes Skin Did You Recieve Any Treatments: Yes What Type of Treatment Did You: Surgical Intervention Psychosocial: Yes Anxiety, Depression Integumentary: Yes (skin graft to left graham, BASAL CELL CARCINOMAS *10) Blood Disorders: No Adverse Reaction/Blood Tranf: No (N/A) Family Medical History Cardiovascular disease 19 FATHER Hypertension 19 FATHER Physical Exam Vital Signs Vital Signs - First Documented 09/15/19 22:55 Temp 36.7 Pulse 60 Resp 20 B/P (MAP) 209/112 (144) Pulse Ox 97 O2 Delivery Nasal Cannula O2 Flow Rate 2.00 Capillary Refill : Height, Weight, BMI Height: 5'8.00" Weight: 207lbs. 0.0oz. 93.245109mb; 31.5 BMI Method:Stated General Appearance: No Apparent Distress, WD/WN, Other (SLIGHTLY DYSPNEIC ON ARRIVAL, AFTER WALKING IN FROM PARKING LOT, BUT QUICKLY RESOLVED AT REST. ) Neck: Full Range of Motion, Normal Inspection, Non Tender, Supple; No Carotid Bruit, No JVD Respiratory: Normal Breath Sounds, No Accessory Muscle Use, No Respiratory Distress, Other ( above) Cardiovascular: No Edema, No JVD, No Murmur, Normal Peripheral Pulses, Irregularly Irregular (AFIB AND MULTIPLE PVC'S) Gastrointestinal: Normal Bowel Sounds, No Organomegaly, No Pulsatile Mass, Non Tender, Soft Extremity: Normal Capillary Refill, Normal Inspection, Normal Range of Motion, Non Tender, No Calf Tenderness, No Pedal Edema Neurologic/Psychiatric: Alert, Oriented x3 (BUT LIMITED MEMORY), No Motor/Sensory Deficits, Normal 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, 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 Norm as Tested Skin: Normal Color, Warm/Dry; No Rash Focused Exam Lactate Level 09/15/19 23:25: Lactic Acid Level 1.48 Lactic Acid Level Laboratory Tests Test 09/15/19 23:25 Lactic Acid Level 1.48 MMOL/L (0.50-2.00) Progress/Results/Core Measures Results/Orders Lab Results Laboratory Tests Test 09/15/19 23:25 09/15/19 23:35 09/16/19 00:20 Range/Units White Blood Count 7.6 4.3-11.0 10^3/uL Red Blood Count 5.05 4.35-5.85 10^6/uL Hemoglobin 15.1 13.3-17.7 G/DL Hematocrit 46 40-54 % Mean Corpuscular Volume 90 80-99 FL Mean Corpuscular Hemoglobin 30 25-34 PG Mean Corpuscular Hemoglobin Concent 33 32-36 G/DL Red Cell Distribution Width 14.6 H 10.0-14.5 % Platelet Count 150 130-400 10^3/uL Mean Platelet Volume 10.2 7.4-10.4 FL Neutrophils (%) (Auto) 69 42-75 % Lymphocytes (%) (Auto) 18 12-44 % Monocytes (%) (Auto) 12 0-12 % Eosinophils (%) (Auto) 1 0-10 % Basophils (%) (Auto) 0 0-10 % Neutrophils # (Auto) 5.2 1.8-7.8 X 10^3 Lymphocytes # (Auto) 1.4 1.0-4.0 X 10^3 Monocytes # (Auto) 0.9 0.0-1.0 X 10^3 Eosinophils # (Auto) 0.1 0.0-0.3 10^3/uL Basophils # (Auto) 0.0 0.0-0.1 10^3/uL Erythrocyte Sedimentation Rate 1 0-30 MM/HR Prothrombin Time 15.8 H 12.2-14.7 SEC INR Comment 1.2 0.8-1.4 Activated Partial Thromboplast Time 32 24-35 SEC Sodium Level 142 135-145 MMOL/L Potassium Level 4.2 3.6-5.0 MMOL/L Chloride Level 108 H 98-107 MMOL/L Carbon Dioxide Level 23 21-32 MMOL/L Anion Gap 11 5-14 MMOL/L Blood Urea Nitrogen 20 H 7-18 MG/DL Creatinine 0.97 0.60-1.30 MG/DL Estimat Glomerular Filtration Rate > 60 BUN/Creatinine Ratio 21 Glucose Level 122 H 70-105 MG/DL Lactic Acid Level 1.48 0.50-2.00 MMOL/L Calcium Level 9.4 8.5-10.1 MG/DL Corrected Calcium 9.3 8.5-10.1 MG/DL Magnesium Level 2.2 1.6-2.4 MG/DL Total Bilirubin 1.1 H 0.1-1.0 MG/DL Aspartate Amino Transf (AST/SGOT) 25 5-34 U/L Alanine Aminotransferase (ALT/SGPT) 25 0-55 U/L Alkaline Phosphatase 89 40-136 U/L Lactate Dehydrogenase 217 125-220 U/L Total Creatine Kinase 46 30-200 U/L Creatine Kinase MB 2.1 <6.6 NG/ML Myoglobin 35.9 10.0-92.0 NG/ML Troponin I < 0.028 <0.028 NG/ML C-Reactive Protein High Sensitivity 1.34 H 0.00-0.50 MG/DL B-Type Natriuretic Peptide 468.0 H <100.0 PG/ML Total Protein 7.7 6.4-8.2 GM/DL Albumin 4.1 3.2-4.5 GM/DL Urine Color YELLOW Urine Clarity CLEAR Urine pH 5.0 5-9 Urine Specific Rush 1.025 H 1.016-1.022 Urine Protein NEGATIVE NEGATIVE Urine Glucose (UA) 3+ H NEGATIVE Urine Ketones NEGATIVE NEGATIVE Urine Nitrite NEGATIVE NEGATIVE Urine Bilirubin NEGATIVE NEGATIVE Urine Urobilinogen 0.2 < = 1.0 MG/DL Urine Leukocyte Esterase NEGATIVE NEGATIVE Urine RBC (Auto) TRACE-L NEGATIVE Urine RBC RARE /HPF Urine WBC NONE /HPF Urine Squamous Epithelial Cells NONE /HPF Urine Crystals NONE /LPF Urine Bacteria NEGATIVE /HPF Urine Casts NONE /LPF Urine Mucus NEGATIVE /LPF Urine Culture Indicated NO Micro Results Microbiology 09/15/19 Influenza Types A,B Antigen (VANE) - Final, Complete My Orders Orders - GEORGIA SMALL DO Ekg Tracing (09/15/19 22:53) O2 (09/15/19 22:53) Monitor-Rhythm Ecg Trace Only (09/15/19 22:53) BNP (09/15/19 22:53) Cbc With Automated Diff (09/15/19 22:53) Comprehensive Metabolic Panel (09/15/19 22:53) Creatine Kinase (09/15/19 22:53) Creatine Kinase Mb (09/15/19 22:53) Hs C Reactive Protein (09/15/19 22:53) Magnesium (09/15/19 22:53) Protime With Inr (09/15/19:53) Partial Thromboplastin Time (09/15/19:53) Ua Culture If Indicated (09/15/19 22:53) Blood Culture (09/15/19 22:53) Influenza A And B Antigens (09/15/19 22:53) Erythrocyte Sedimentation Rate (09/15/19 22:53) Myoglobin Serum (09/15/19 22:53) Troponin I (09/15/19 22:53) Procalcitonin (Pct) (09/15/19 22:53) LDH (09/15/19 22:53) Chest 1 View, Ap/Pa Only (09/15/19 22:53) Coronavirus Sars-Cov-2 So 2018 (09/15/19 22:53) Adenovirus Detection By Pcr (09/15/19 22:53) Parainfluenza Virus 1,2,3 Pcr (09/15/19 22:53) Aspirin Chewable Tablet (Baby Aspirin Ch (09/15/19 23:15) Nitroglycerin Ointment (Nitrobid Ointme (09/15/19 23:15) Lactic Acid Analyzer (09/16/19 00:36) Furosemide Injection (Lasix Injection) (09/16/19 01:00) Medications Given in ED Current Medications Medications Dose Ordered Sig/Jaylen Route Start Time Stop Time Status Last Admin Dose Admin Aspirin 324 mg ONCE ONCE PO 09/15/19 23:15 09/15/19 23:16 DC 09/15/19 23:28 324 MG Nitroglycerin 1 inch ONCE ONCE TOP 09/15/19 23:15 09/15/19 23:16 DC 09/15/19 23:28 1 INCH Vital Signs/I&O 09/15/19 09/15/19 09/15/19 09/15/19 22:55 23:10 23:13 23:32 Temp 36.7 Pulse 60 69 66 Resp 20 20 22 B/P (MAP) 209/112 (144) 181/107 (131) 183/101 (128) Pulse Ox 97 97 97 97 O2 Delivery Nasal Cannula Nasal Cannula Nasal Cannula Nasal Cannula O2 Flow Rate 2.00 2.00 2.00 2.00 09/15/19 09/15/19 09/16/19 09/16/19 23:37 23:52 00:01 00:17 Pulse 81 74 80 75 Resp 20 20 20 20 B/P (MAP) 176/108 (130) 186/97 (126) 146/107 (120) 179/98 (125) Pulse Ox 98 97 96 96 O2 Delivery Nasal Cannula Nasal Cannula Nasal Cannula Nasal Cannula O2 Flow Rate 2.00 2.00 2.00 2.00 09/16/19 09/16/19 00:30 00:45 Pulse 70 77 Resp 20 20 B/P (MAP) 186/107 (133) 170/109 (129) Pulse Ox 98 98 O2 Delivery Nasal Cannula Nasal Cannula O2 Flow Rate 2.00 2.00 Progress Progress Note : Progress Note PT SEEN IN COVID UNIT. PPE WORN AT ALL TIMES COVID TESTING DONE GIVEN ASPIRIN AND NITROPASTE, WITH BLOOD PRESSURE DOWN AND NO FURTHER C/O CHEST DISCOMFORT OR FEELING SHORT OF BREATH. BP DOWN SOME WITH NITROPASTE, THEN GRADUALLY BEGAN TO INCREASE. GIVEN HYDRALAZINE FOR BLOOD PRESSURE. GIVEN LASIX FOR MILD CHF NO COMPLAINTS OF DYSPNEA DURING REMAINDER OF ER STAY O2 SATS REMAINED NORMAL. NO COUGH NOTED AT ANY TIME NO FEVER AT ANY TIME Initial ECG Impression Date: September 15, 2019 Initial ECG Impression Time: 23:27 Initial ECG Rate: 65 Initial ECG Rhythm: A Fib/Flutter Initial ECG Comparisson: Unchanged Diagnostic Imaging Comments CXR--CARDIOMEGALY AND MILD VASCULAR CONGESTION, PENDING RADIOLOGIST REVIEW Reviewed: Reviewed by Me Departure Communication (Admissions) 005--ATTEMPTING TO CONTACT DR RAMESH. MESSAGE LEFT ON CELL. 0111--MESSAGE LEFT ON DR. RAMESH'S CELL PHONE [phone]--SPOKE WITH DR. ORENDER, ACCEPTS PT FOR ADMIT. Impression Primary Impression: Chest pain Additional Impressions: Dyspnea Hypertensive urgency COVID P.U.I. NIDDM HX OF CAD WITH ANGIOPLASTY Chronic atrial fibrillation CHF (congestive heart failure) Disposition: ADMITTED INPATIENT Condition: Improved Admissions Decision to Admit Reason: Admit from ER (General) Decision to Admit/Date: September 16, 2019 Time/Decision to Admit Time: 00:55 Departure-Patient Inst. Referrals: ANA RAMESH DO (PCP/Family) Primary Care Physician GEORGIA SMALL DO September 15, 2019 23:10
[2019-09-15 23:13] VITALS: BP 181/107
[2019-09-15] MEDS ORDERED: NITROGLYCERIN 2% OINT 1 GM UNIT DOSE PACKET TOP ONE (23:15)
[2019-09-15] MEDS ORDERED: ASPIRIN 81 MG CHEW (CHILDREN'S ASA) PO ONE (23:15)
[2019-09-15 23:32] VITALS: BP 183/101
[2019-09-15 23:37] VITALS: BP 176/108
[2019-09-15 23:52] VITALS: BP 186/97
[2019-09-16] VITALS (34 sets, daily range): BP systolic 117–186; BP diastolic 67–117
[2019-09-16 00:18] LABS: BASOPHILS % (AUTO) 0 % (0-10); EOSINOPHILS # (AUTO) 0.1 10^3/uL (0.0-0.3); EOSINOPHILS % (AUTO) 1 % (0-10); HEMATOCRIT 46 % (40-54); HEMOGLOBIN 15.1 G/DL (13.3-17.7); LYMPHOCYTES # (AUTO) 1.4 X 10^3 (1.0-4.0); LYMPHOCYTES % (AUTO) 18 % (12-44); MEAN CORPUSCULAR HEMOGLOBIN 30 PG (25-34); MEAN CORPUSCULAR HGB CONC 33 G/DL (32-36); MEAN CORPUSCULAR VOLUME 90 FL (80-99); MEAN PLATELET VOLUME 10.2 FL (7.4-10.4); MONOCYTES # (AUTO) 0.9 X 10^3 (0.0-1.0); MONOCYTES % (AUTO) 12 % (0-12); NEUTROPHILS # (AUTO) 5.2 X 10^3 (1.8-7.8); NEUTROPHILS % (AUTO) 69 % (42-75); PLATELET COUNT 150 10^3/uL (130-400); RED CELL DISTRIBUTION WIDTH 14.6 % (10.0-14.5); WHITE BLOOD COUNT 7.6 10^3/uL (4.3-11.0)
[2019-09-16 00:29] LABS: ALBUMIN 4.1 GM/DL (3.2-4.5); INR 1.2 (0.8-1.4); PROTHROMBIN TIME PATIENT 15.8 SEC (12.2-14.7)
[2019-09-16 00:30] LABS: CHLORIDE 108 MMOL/L (98-107); POTASSIUM 4.2 MMOL/L (3.6-5.0); SODIUM 142 MMOL/L (135-145)
[2019-09-16 00:31] LABS: CALCIUM 9.4 MG/DL (8.5-10.1)
[2019-09-16 00:32] LABS: GLUCOSE 122 MG/DL (70-105); TOTAL PROTEIN 7.7 GM/DL (6.4-8.2)
[2019-09-16 00:33] LABS: CARBON DIOXIDE 23 MMOL/L (21-32)
[2019-09-16 00:34] LABS: BILIRUBIN,TOTAL 1.1 MG/DL (0.1-1.0)
[2019-09-16 00:36] LABS: ALKALINE PHOSPHATASE 89 U/L (40-136); CREATININE SERUM 0.97 MG/DL (0.60-1.30); GFR ESTIMATED > 60
[2019-09-16 00:37] LABS: BUN/CREATININE RATIO 21
[2019-09-16 00:38] LABS: MAGNESIUM 2.2 MG/DL (1.6-2.4)
[2019-09-16 00:39] LABS: ALANINE AMINOTRANSFERASE 25 U/L (0-55); CREATINE KINASE 46 U/L (30-200)
[2019-09-16 00:46] LABS: BILIRUBIN,URINE NEGATIVE (NEGATIVE); CLARITY,URINE CLEAR; COLOR,URINE YELLOW; GLUCOSE, URINE (UA) 3+ (NEGATIVE); KETONES,URINE NEGATIVE (NEGATIVE); LEUKOCYTE ESTERASE ,URINE NEGATIVE (NEGATIVE); NITRITE,URINE NEGATIVE (NEGATIVE); PROTEIN,URINE NEGATIVE (NEGATIVE)
[2019-09-16 00:46] LABS: CREATINE KINASE MB 2.1 NG/ML (<6.6)
[2019-09-16] MEDS ORDERED: hydrALAZINE (APESOLINE) 20 MG/ML VIAL ONE (00:51)
[2019-09-16 00:55] LABS: BACTERIA,URINE NEGATIVE /HPF; RBC,URINE RARE /HPF
[2019-09-16 00:56] LABS: ERYTHROCYTE SEDIMENTATION RATE 1 MM/HR (0-30)
[2019-09-16] MEDS ORDERED: FUROSEMIDE 40 MG/4 ML INJ (LASIX) IVP ONE (01:00)
[2019-09-16] MEDS ORDERED: hydrALAZINE (APESOLINE) 20 MG/ML VIAL IV ONE (01:00)
--- NOTE | 2019-09-16 01:43 | NUR ---
REPORT GIVEN TO CHEVY CRUMP.
[2019-09-16] MEDS ORDERED: morphine INJ 4 MG/ML 1 ML (VIAL/SYRINGE) IV PRN (03:15)
[2019-09-16] MEDS ORDERED: ONDANSETRON 4 MG/2 ML (SDV) Z0FRAN IV PRN (03:15)
[2019-09-16] MEDS ORDERED: NITROGLYCERIN 0.4 MG SL TABS BTL 25'S SL PRN (03:15)
[2019-09-16] MEDS ORDERED: CATHETER FLUSH 10 ML SYR IV PRN (03:15)
[2019-09-16 03:46] LABS: BASOPHILS % (AUTO) 0 % (0-10); EOSINOPHILS # (AUTO) 0.1 10^3/uL (0.0-0.3); EOSINOPHILS % (AUTO) 1 % (0-10); HEMATOCRIT 46 % (40-54); HEMOGLOBIN 15.4 G/DL (13.3-17.7); LYMPHOCYTES # (AUTO) 1.4 X 10^3 (1.0-4.0); LYMPHOCYTES % (AUTO) 19 % (12-44); MEAN CORPUSCULAR HEMOGLOBIN 30 PG (25-34); MEAN CORPUSCULAR HGB CONC 33 G/DL (32-36); MEAN CORPUSCULAR VOLUME 90 FL (80-99); MEAN PLATELET VOLUME 10.1 FL (7.4-10.4); MONOCYTES % (AUTO) 13 % (0-12); NEUTROPHILS # (AUTO) 4.8 X 10^3 (1.8-7.8); NEUTROPHILS % (AUTO) 66 % (42-75); PLATELET COUNT 175 10^3/uL (130-400); RED CELL DISTRIBUTION WIDTH 14.6 % (10.0-14.5); WHITE BLOOD COUNT 7.2 10^3/uL (4.3-11.0)
[2019-09-16 03:59] LABS: ALBUMIN 4.1 GM/DL (3.2-4.5); CHLORIDE 106 MMOL/L (98-107); POTASSIUM 3.9 MMOL/L (3.6-5.0); SODIUM 141 MMOL/L (135-145)
[2019-09-16 04:00] LABS: CALCIUM 9.4 MG/DL (8.5-10.1)
[2019-09-16 04:01] LABS: GLUCOSE 128 MG/DL (70-105); TOTAL PROTEIN 7.9 GM/DL (6.4-8.2)
[2019-09-16 04:02] LABS: CARBON DIOXIDE 22 MMOL/L (21-32)
[2019-09-16 04:03] LABS: BILIRUBIN,TOTAL 1.7 MG/DL (0.1-1.0)
[2019-09-16 04:05] LABS: ALKALINE PHOSPHATASE 88 U/L (40-136); CREATININE SERUM 0.92 MG/DL (0.60-1.30); GFR ESTIMATED > 60
[2019-09-16 04:06] LABS: BUN/CREATININE RATIO 22
[2019-09-16 04:08] LABS: ALANINE AMINOTRANSFERASE 25 U/L (0-55)
[2019-09-16] MEDS: inSUlin ASPART (NovoLOG) 1 UNIT/0.01 ML (CHARGE PER UNIT) SC SCH ×4 (04:50→20:43)
[2019-09-16] MEDS: NITROGLYCERIN 2% OINT 1 GM UNIT DOSE PACKET TOP SCH ×4 (06:28→23:25)
[2019-09-16] MEDS: CATHETER FLUSH 10 ML SYR IV SCH ×3 (06:28→20:44)
--- NOTE | 2019-09-16 07:34 | Diagnostic Imaging Report ---
INDICATION: Cough and shortness of breath. Comparison with 10/30/2018. FINDINGS: Portable chest. The lungs are well-aerated. Mild discoid atelectasis has developed in the left lung base. There continues to be cardiomegaly without evidence of pulmonary edema. No pneumothorax or pleural effusion. IMPRESSION: 1. Development of mild discoid atelectasis left lung base. No consolidated infiltrates are seen. 2. Cardiomegaly without evidence of congestive failure. Dictated by: Dictated on workstation # [id number]
[2019-09-16] MEDS: ASPIRIN E.C. 81 MG (ECOTRIN) TAB PO SCH (07:52)
[2019-09-16] MEDS ORDERED: POTA10CA43 PO (13:51)
[2019-09-16] MEDS ORDERED: ESCI20TA45 PO (13:51)
[2019-09-16] MEDS ORDERED: GLIM4TAB5 PO (13:51)
[2019-09-16] MEDS ORDERED: MAGN400T39 PO (13:51)
[2019-09-16] MEDS ORDERED: HYDR25TA4 PO (13:51)
[2019-09-16] MEDS ORDERED: RISP0.5T3 PO (13:51)
[2019-09-16] MEDS ORDERED: METO50TA15 PO (13:51)
[2019-09-16] MEDS ORDERED: LISI-552 PO (13:51)
[2019-09-16] MEDS ORDERED: DONE10TA41 PO (13:51)
[2019-09-16] MEDS ORDERED: APIX5TAB PO (14:26)
--- NOTE | 2019-09-16 14:27 | NUR ---
UNABLE TO SPEAK WITH THE PT, BUT I DID GET A MED LIST FROM HER PCP AND SPOKE WITH DR URIOSTEGUI OFFICE AND WENT THRU THE EXT MED HISTORY TO COMPLETE THE MED REC I SPOKE WITH THE PTS PAOLA BUT SHE WAS UNABLE TO GIVE ME ANY INFORMATION. I CALLED THE PATIENTS ROOM PHONE AND CELL AND HE DID NOT ANSWER ELIQUIS 5MG-THIS IS LISTED ON THE MED LIST FROM DR. RAMESH AND DR. CAMPOS HOWEVER THE PT LAST GOT SAMPLES ON 07-08-2019 FOR A 14 DAY SUPPLY, WHEN I SPOKE WITH HIS SHE ADMITTED HE DID NOT TAKE THEM LIKE HE SHOULD. FOR THIS REASON I DID NOT INCLUDE THIS IN THE MED REC ALL OTHER MEDICATIONS ARE LISTED ON THE EXT MED HISTORY OTC MEDS: TYLENOL
--- NOTE | 2019-09-16 16:28 | Consultation-Cardiology ---
HPI-Cardiology Cardiology Consultation Date of Consultation 09/16/19 Date of Admission Time Seen by Provider: 15:30 Indication: Chest pain, dyspnea HPI Patient is a 74 y/o male with history of CAD, grade III diastolic dysfunction, HTN. Presented to the ER with complaints of nonproductive cough and increased dyspnea with abdominal tightness and peripheral edema over the past 2-3 days. Reports occasional episode of chest pain lasting for seconds, occurring 3-4 times per week. Denies any chest pain at this time. Has responded well to lasix with improvement of his dyspnea. COVID-19 testing negative. No other complaints at this time. 74-year-old gentleman with history of coronary artery disease, hypertension, presented with increasing shortness of breath, cough fatigue and loss of energy. Chronic enzymes are negative. No chest pain at this time. Responded well to diuretics. COVID-19 testing was negative Home Medications & Allergies Allergies: Coded Allergies: NKANo Known Allergies (Unverified Allergy, Mild, 09/19/17) Home Medication List Reviewed: Yes [id number]-[id number] Hx Patient Social History Marital Status: Employed/Student: retired Alcohol Use: Past History ("NONE FOR 30 YEARS", PER PT 09/15/19) Recreational Drug Use: No Smoking Status: Former Smoker ("NONE FOR 30 YEARS" PER PT 09/15/19) Former smoker/When Quit: Sep 01, 1986 Type Used: Cigarettes 2nd Hand Smoke Exposure: No Recent Foreign Travel: No Recent Infectious Disease Expo: No Recent Hopitalizations: No Immunizations Up To Date Tetanus Booster (TDap): Less than 5yrs Date of Pneumonia Vaccine: September 15, 2017 Date of Influenza Vaccine: Feb 18, 2017 Past Medical History CAD, CHF, HTN, Chronic afib Family Medical History Significant Family History: No Pertinent Family Hx Family History: Cardiovascular disease 19 FATHER Hypertension 19 FATHER Review of Systems-General Review of Systems Constitutional: see HPI; No chills, No diaphoresis, No fever; malaise, weakness EENTM: see HPI; No blurred vision, No double vision, No vision loss Respiratory: see HPI, cough, dyspnea on exertion Cardiovascular: see HPI, chest pain, edema; No palpitations, No vascular heart diseas Gastrointestinal: No abdominal pain, No constipation Genitourinary: No dysuria, No frequency, No hematuria Musculoskeletal: no symptoms reported; No back pain Skin: no symptoms reported Psychiatric/Neurological: No Symptoms Reported; Denies Headache, Denies Numbness, Denies Paresthesia, Denies Weakness Reviewed Test Results Reviewed Test Results Lab Laboratory Tests 09/15/19 23:25: White Blood Count 7.6, Red Blood Count 5.05, Hemoglobin 15.1, Hematocrit 46, Mean Corpuscular Volume 90, Mean Corpuscular Hemoglobin 30, Mean Corpuscular Hemoglobin Concent 33, Red Cell Distribution Width 14.6H, Platelet Count 150, Mean Platelet Volume 10.2, Neutrophils (%) (Auto) 69, Lymphocytes (%) (Auto) 18, Monocytes (%) (Auto) 12, Eosinophils (%) (Auto) 1, Basophils (%) (Auto) 0, Neutrophils # (Auto) 5.2, Lymphocytes # (Auto) 1.4, Monocytes # (Auto) 0.9, Eosinophils # (Auto) 0.1, Basophils # (Auto) 0.0, Erythrocyte Sedimentation Rate 1, Prothrombin Time 15.8H, INR Comment 1.2, Activated Partial Thromboplast Time 32, Sodium Level 142, Potassium Level 4.2, Chloride Level 108H, Carbon Dioxide Level 23, Anion Gap 11, Blood Urea Nitrogen 20H, Creatinine 0.97, Estimat Glomerular Filtration Rate > 60, BUN/Creatinine Ratio 21, Glucose Level 122H, Lactic Acid Level 1.48, Calcium Level 9.4, Corrected Calcium 9.3, Magnesium Level 2.2, Total Bilirubin 1.1H, Aspartate Amino Transf (AST/SGOT) 25, Alanine Aminotransferase (ALT/SGPT) 25, Alkaline Phosphatase 89, Lactate Dehydrogenase 217, Total Creatine Kinase 46, Creatine Kinase MB 2.1, Myoglobin 35.9, Troponin I < 0.028, C-Reactive Protein High Sensitivity 1.34H, B-Type Natriuretic Peptide 468.0H, Total Protein 7.7, Albumin 4.1, Procalcitonin 0.03 09/15/19 23:35: Coronavirus (COVID-19)(PCR) Negative 09/16/19 00:20: Urine Color YELLOW, Urine Clarity CLEAR, Urine pH 5.0, Urine Specific [place] 1.025H, Urine Protein NEGATIVE, Urine Glucose (UA) 3+H, Urine Ketones NEGATIVE, Urine Nitrite NEGATIVE, Urine Bilirubin NEGATIVE, Urine Urobilinogen 0.2, Urine Leukocyte Esterase NEGATIVE, Urine RBC (Auto) TRACE-L, Urine RBC RARE, Urine WBC NONE, Urine Squamous Epithelial Cells NONE, Urine Crystals NONE, Urine Bacteria NEGATIVE, Urine Casts NONE, Urine Mucus NEGATIVE, Urine Culture Indicated NO 09/16/19 03:39: White Blood Count 7.2, Red Blood Count 5.16, Hemoglobin 15.4, Hematocrit 46, Mean Corpuscular Volume 90, Mean Corpuscular Hemoglobin 30, Mean Corpuscular Hemoglobin Concent 33, Red Cell Distribution Width 14.6H, Platelet Count 175, Mean Platelet Volume 10.1, Neutrophils (%) (Auto) 66, Lymphocytes (%) (Auto) 19, Monocytes (%) (Auto) 13H, Eosinophils (%) (Auto) 1, Basophils (%) (Auto) 0, Neutrophils # (Auto) 4.8, Lymphocytes # (Auto) 1.4, Monocytes # (Auto) 1.0, Eosinophils # (Auto) 0.1, Basophils # (Auto) 0.0, Sodium Level 141, Potassium Level 3.9, Chloride Level 106, Carbon Dioxide Level 22, Anion Gap 13, Blood Urea Nitrogen 20H, Creatinine 0.92, Estimat Glomerular Filtration Rate > 60, BUN/Creatinine Ratio 22, Glucose Level 128H, Calcium Level 9.4, Corrected Calcium 9.3, Total Bilirubin 1.7H, Aspartate Amino Transf (AST/SGOT) 26, Alanine Aminotransferase (ALT/SGPT) 25, Alkaline Phosphatase 88, Troponin I < 0.028, Total Protein 7.9, Albumin 4.1 Microbiology 09/15/19 Influenza Types A,B Antigen (VANE) - Final, Complete ECG Impression ECG Initial ECG Impression: Atrial Fibrillation Physical Exam Physical Exam Vital Signs Vital Signs - First Documented 09/15/19 22:55 Temp 36.7 Pulse 60 Resp 20 B/P (MAP) 209/112 (144) Pulse Ox 97 O2 Delivery Nasal Cannula O2 Flow Rate 2.00 Capillary Refill : Less Than 3 Seconds Height, Weight, BMI Height: 5'8.00" Weight: 207lbs. 0.0oz. [id number]; 203.71 BMI Method:Stated General Appearance: No Apparent Distress, WD/WN, Other (SLIGHTLY DYSPNEIC ON ARRIVAL, AFTER WALKING IN FROM PARKING LOT, BUT QUICKLY RESOLVED AT REST. ) HEENT: Normal ENT Inspection Neck: Full Range of Motion, Normal Inspection, Non Tender, Supple; No Carotid Bruit, No JVD Respiratory: Normal Breath Sounds, No Accessory Muscle Use, No Respiratory Distress Cardiovascular: No JVD, No Murmur, Normal Peripheral Pulses, Irregularly Irregular (AFIB AND MULTIPLE PVC'S), Other (+1 edema BLE) Gastrointestinal: Normal Bowel Sounds, No Organomegaly, No Pulsatile Mass, Non Tender, Soft Extremity: Normal Capillary Refill, Normal Inspection, Normal Range of Motion, Non Tender, No Calf Tenderness, No Pedal Edema Neurologic/Psychiatric: Alert, Oriented x3 (BUT LIMITED MEMORY), No Motor/Sensory Deficits, Normal 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 Denies any active chest pain at this time. EKG reveals afib, rate controlled, cardiac enzymes negative. Most recent stress test done in December 2018 revealed increased intestinal uptake affecting the quality of images with decreased uptake involving inferior wall, inferior apex with no significant ischemia. Continue on current medication and continue to monitor. Acute on chronic CHF, increased dyspnea, Echocardiogram done in January 2019 showing normal left ventricular size with EF 50-55 percent, grade 3 diastolic dysfunction, left atrial dilatation measuring 5.0 cm, aortic wall sclerosis, PA pressure 35-40 mmHg. Diurese as tolerated, I will reevaluate 2D Echo. Coronary artery disease-cardiac catheterization done on October 22, [address] [facility] revealing left main with 25 percent narrowing. LAD had apical 75-80 percent narrowing reduced to less than 25 percent following balloon angioplasty. First diagonal with 30-40 percent narrowing. Ramus branch with mild 25 percent narrowing. Circumflex artery with 30-40 percent diffuse narrowing and small system. RCA was moderately large vessel with 20-25 percent stenosis. Posterior lateral branch had 80 percent narrowing reduced to less than 25 percent following balloon angioplasty. PDA had 70 percent mid narrowing reduced to less than 25 percent following balloon angioplasty. Right femoral artery was widely patent. Most recent cardiac catheterization done May 09, 2016 revealed small vessel disease, especially in the circumflex artery that is not amenable to intervention. LAD has moderate disease with no obstructive disease. RCA had moderate disease at proximal and distal portion. Right PDA had significant disease but also small artery not amenable to intervention, stress test done in showing diaphragmatic attenuation and intestinal attenuation affecting the quality of the images, fixed defect at the inferior wall with ejection fraction 38 percent. Echo showed ejection fraction 50-55 percent. Continue to monitor Chronic atrial fibrillation, rate controlled. Maintained on Eliquis. [id number]- VASc score is 3, yearly risk of stroke without oral anticoagulation is 3.2 percent. Hypertension, controlled, continue to monitor blood pressure/heart rate. Depression/anxiety-managed by primary care physician Diabetes mellitus, followed and managed by primary care physician. Hyperlipidemia, last lipid profile done in June 2019 showing total cholesterol 138, HDL 38, LDL 91, triglyceride 140. Continue to monitor Thank you for allowing us to participate in the management of Mr. Car. This is Khushi Eaton PA-C, as a scribe for Dr. Fung. Patient was seen and evaluated with Khushi, examination performed, management plan was discussed, agree with the current scribed note, I made few changes to the note using Italic font Chronic stable angina, EKG is not showing any changes, chronic enzymes are negative. Known to have extensive disease as described above. Continue to monitor Acute on chronic left ventricular systolic dysfunction, congestive heart failur e, ischemic cardiomyopathy, I will repeat 2-D echocardiogram, tolerating diuretics well. Chronic persistent atrial fibrillation, maintained on oral anticoagulation. Continue to monitor Hypertension, continue to monitor blood pressure Discussed with the patient the management plan, reported to me that he is not taking his medication and he does not have medication at home. I will keep him overnight and arrange for him to have medication the morning. Clinical Quality Measures DVT/VTE Risk/Contraindication: Risk Factor Score Per Nursin RFS Level Per Nursing on Admit: 3=High KHUSHI RIVAS September 16, 2019 4:28 pm SKYLAR FUNG MD September 16, 2019 4:45 pm
--- NOTE | 2019-09-16 17:11 | History & Physical ---
History of Present Illness History of Present Illness Reason for visit/HPI This is a 74 year old male with a history of CAD and noncompliance with medications who presented to the emergency room with abdominal fullness and shortness of air. He had noted increased swelling in his legs for the past week. He was found to be in decompensated diastolic heart failure and was extremely hypertensive. He was given IV lasix and nitro and admitted to the cardiac stepdown in the ICU. Date of Admission September 16, 2019 at 00:55 Date Seen by a Provider: September 16, 2019 Time Seen by a Provider: 12:30 I consulted on this patient on 09/16/19 17:05 Attending Physician Laura Ramesh DO Admitting Physician Laura Ramesh DO Consult Allergies and Home Medications Allergies Coded Allergies: NKANo Known Allergies (Unverified Allergy, Mild, 09/19/17) Home Medications Acetaminophen 500 Mg Tablet, 500-1,000 MG PO Q6H PRN for PAIN-MILD, (Reported) TAKES 1-2 (500 MG) TABLETS Allopurinol 100 Mg Tablet, 100 MG PO DAILY, (Reported) Atorvastatin Calcium 10 Mg Tablet, 10 MG PO DAILY, (Reported) Donepezil HCl 10 Mg Tablet, 10 MG PO HS, (Reported) Escitalopram Oxalate 20 Mg Tablet, 20 MG PO DAILY, (Reported) Glimepiride 4 Mg Tablet, 4 MG PO BID, (Reported) Hydrochlorothiazide 25 Mg Tablet, 25 MG PO DAILY, (Reported) Lisinopril 20 Mg Tablet, 20 MG PO DAILY, (Reported) Magnesium Oxide 400 Mg Tablet, 400 MG PO DAILY, (Reported) Metoprolol Tartrate 50 Mg Tablet, 50 MG PO BID, (Reported) Nitroglycerin 0.4 Mg Tab.subl, 0.4 MG SL UD PRN for CHEST PAIN, (Reported) Potassium Chloride 10 Meq Capsule.er, 10 MEQ PO DAILY, (Reported) Risperidone 0.5 Mg Tablet, 0.5 MG PO HS, (Reported) Patient Home Medication List Home Medication List Reviewed: Yes Past Wqbjgwr-Pbsgzo-Bkkzhg Hx Past Med/Social Hx: Reviewed Nursing Past Med/Soc Hx, Reviewed and Corrections made Patient Social History Marrital Status: Employed/Student: retired Alcohol Use: Past History ("NONE FOR 30 YEARS", PER PT 09/15/19) Number of Drinks Today: AA Alcohol Beverage of Choice: Beer Recreational Drug Use: No Smoking Status: Former Smoker ("NONE FOR 30 YEARS" PER PT 09/15/19) Former Smoker, Quit: Aug 07, 1987 Type Used: Cigarettes 2nd Hand Smoke Exposure: No Recent Foreign Travel: No Contact w/other who traveled: No Recent Hopitalizations: No Recent Infectious Disease Expo: No Immunizations Up To Date Tetanus Booster (TDap): Less than 5yrs Pediatric: Yes Date of Pneumonia Vaccine: September 15, 2017 Date of Influenza Vaccine: Feb 18, 2017 Seasonal Allergies Seasonal Allergies: Yes (POLLEN ) Past Medical History Surgeries: Abdominal, Cardiac, Gallbladder, Rectal Currently Using CPAP: No Currently Using BIPAP: No Cardiac: Atrial Fibrillation, Chronic Edema/Swelling, Coronary Artery Disease, High Cholesterol, Hypertension Neurological: Dementia Reproductive: No Sexually Transmitted Disease: No HIV/AIDS: No Genitourinary: Benign Prostatic Hyperpl Gastrointestinal: Hiatal Hernia Musculoskeletal: Degenerate Disk Disease, Arthritis, Chronic Back Pain, Gout Endocrine: Diabetes, Non-Insulin dep HEENT: Cataract Loss of Vision: Denies Hearing Impairment: Hard of Hearing Cancer: Skin Did You Recieve Any Treatments: Yes What Type of Treatment Did You: Surgical Intervention Psychosocial: Anxiety, Depression History of Blood Disorders: No Adverse Reaction to Blood Moore: No (N/A) Family History Cardiovascular disease 19 FATHER Hypertension 19 FATHER No Pertinent Family Hx Review of Systems Constitutional: No no symptoms reported, No see HPI, No chills, No diaphoresis, No dizziness, No fever, No malaise, No weakness, No weight gain, No weight loss, No other EENTM: No see HPI, No no symptoms reported, No ear discharge, No hearing loss, No ear pain, No blurred vision, No double vision, No eye pain, No tearing, No vision loss, No dental problems, No hoarseness, No mouth pain, No mouth swelling, No epistaxis, No nose congestion, No nose pain, No throat pain, No throat swelling, No other Respiratory: dyspnea on exertion, short of breath Cardiovascular: chest pain, edema Gastrointestinal: abdominal pain (fullness), constipation Genitourinary: No no symptoms reported, No see HPI, No decreased output, No discharge, No dysuria, No frequency, No hematuria, No hesitancy, No incont inence, No nocturia, No pain, No other Musculoskeletal: No no symptoms reported, No see HPI, No back pain, No gout, No joint pain, No joint swelling, No muscle pain, No muscle stiffness, No muscle cramps, No muscle twitching, No muscle weakness, No neck pain, No other Skin: No no symptoms reported, No see HPI, No change in color, No change in hair/nails, No dryness, No hx of skin cancer, No lesions, No lumps, No pruritus, No rash, No other Psychiatric/Neurological: Anxiety Physical Exam Vital Signs Vital Signs - First Documented 09/15/19 22:55 Temp 36.7 Pulse 60 Resp 20 B/P (MAP) 209/112 (144) Pulse Ox 97 O2 Delivery Nasal Cannula O2 Flow Rate 2.00 Capillary Refill : Less Than 3 Seconds Height, Weight, BMI Height: 5'8.00" Weight: 207lbs. 0.0oz. [id number]; 203.71 BMI Method:Stated General Appearance: No Apparent Distress HEENT: Normal ENT Inspection Neck: Supple Respiratory: Lungs Clear Cardiovascular: Regular Rate, Rhythm, Systolic Murmur, Gallop/S4 Gastrointestinal: Normal Bowel Sounds, Non Tender, Soft Rectal: Deferred Back: No CVA Tenderness Extremity: Non Tender, No Calf Tenderness, No Pedal Edema Neurologic/Psychiatric: Alert, Oriented x3 Skin: Warm/Dry Comments Laboratory Tests 09/15/19 23:25: White Blood Count 7.6, Red Blood Count 5.05, Hemoglobin 15.1, Hematocrit 46, Mean Corpuscular Volume 90, Mean Corpuscular Hemoglobin 30, Mean Corpuscular Hemoglobin Concent 33, Red Cell Distribution Width 14.6H, Platelet Count 150, Mean Platelet Volume 10.2, Neutrophils (%) (Auto) 69, Lymphocytes (%) (Auto) 18, Monocytes (%) (Auto) 12, Eosinophils (%) (Auto) 1, Basophils (%) (Auto) 0, Neutrophils # (Auto) 5.2, Lymphocytes # (Auto) 1.4, Monocytes # (Auto) 0.9, Eosinophils # (Auto) 0.1, Basophils # (Auto) 0.0, Erythrocyte Sedimentation Rate 1, Prothrombin Time 15.8H, INR Comment 1.2, Activated Partial Thromboplast Time 32, Sodium Level 142, Potassium Level 4.2, Chloride Level 108H, Carbon Dioxide Level 23, Anion Gap 11, Blood Urea Nitrogen 20H, Creatinine 0.97, Estimat Glomerular Filtration Rate > 60, BUN/Creatinine Ratio 21, Glucose Level 122H, Lactic Acid Level 1.48, Calcium Level 9.4, Corrected Calcium 9.3, Magnesium Level 2.2, Total Bilirubin 1.1H, Aspartate Amino Transf (AST/SGOT) 25, Alanine Aminotransferase (ALT/SGPT) 25, Alkaline Phosphatase 89, Lactate Dehydrogenase 217, Total Creatine Kinase 46, Creatine Kinase MB 2.1, Myoglobin 35.9, Troponin I < 0.028, C-Reactive Protein High Sensitivity 1.34H, B-Type Natriuretic Peptide 468.0H, Total Protein 7.7, Albumin 4.1, Procalcitonin 0.03 09/15/19 23:35: Adenovirus (PCR) [Pending], Coronavirus (COVID-19)(PCR) Negative, Parainfluenza Type 1 (PCR) [Pending], Parainfluenza Type 2 (PCR) [Pending], Parainfluenza Type 3 (PCR) [Pending] 09/16/19 00:20: Urine Color YELLOW, Urine Clarity CLEAR, Urine pH 5.0, Urine Specific [place] 1.025H, Urine Protein NEGATIVE, Urine Glucose (UA) 3+H, Urine Ketones NEGATIVE, Urine Nitrite NEGATIVE, Urine Bilirubin NEGATIVE, Urine Urobilinogen 0.2, Urine Leukocyte Esterase NEGATIVE, Urine RBC (Auto) TRACE-L, Urine RBC RARE, Urine WBC NONE, Urine Squamous Epithelial Cells NONE, Urine Crystals NONE, Urine Bacteria NEGATIVE, Urine Casts NONE, Urine Mucus NEGATIVE, Urine Culture Indicated NO 09/16/19 03:39: White Blood Count 7.2, Red Blood Count 5.16, Hemoglobin 15.4, Hematocrit 46, Mean Corpuscular Volume 90, Mean Corpuscular Hemoglobin 30, Mean Corpuscular Hemoglobin Concent 33, Red Cell Distribution Width 14.6H, Platelet Count 175, Mean Platelet Volume 10.1, Neutrophils (%) (Auto) 66, Lymphocytes (%) (Auto) 19, Monocytes (%) (Auto) 13H, Eosinophils (%) (Auto) 1, Basophils (%) (Auto) 0, Neutrophils # (Auto) 4.8, Lymphocytes # (Auto) 1.4, Monocytes # (Auto) 1.0, Eosinophils # (Auto) 0.1, Basophils # (Auto) 0.0, Sodium Level 141, Potassium Level 3.9, Chloride Level 106, Carbon Dioxide Level 22, Anion Gap 13, Blood Urea Nitrogen 20H, Creatinine 0.92, Estimat Glomerular Filtration Rate > 60, BUN/Creatinine Ratio 22, Glucose Level 128H, Calcium Level 9.4, Corrected Calcium 9.3, Total Bilirubin 1.7H, Aspartate Amino Transf (AST/SGOT) 26, Alanine Aminotransferase (ALT/SGPT) 25, Alkaline Phosphatase 88, Troponin I < 0.028, Total Protein 7.9, Albumin 4.1 Microbiology 09/15/19 Blood Culture - Preliminary, Resulted No growth 09/15/19 Influenza Types A,B Antigen (VANE) - Final, Complete Assessment/Plan Assessment and Plan 1. Acute on Chronic Diastolic CHF--has diuresed well with one dose of IV lasix and feeling much better, Cardiology wants updated ECHO 2. Hypertension--improved after IV lasix and nitro, will restart metoprolol 3. Diabetes mellitus--accuchecks with SSI 4. History of CAD--medical management 5. History of noncompliance with medications and patient once again admits that he has ran out of some of his medications Admission Diagnosis Admission Status: Observation Clinical Quality Measures DVT/VTE Risk/Contraindication: Risk Factor Score Per Nursin RFS Level Per Nursing on Admit: 3=High LAURA RAMESH DO September 16, 2019 17:11
[2019-09-16] MEDS: DABIGATRAN 150 MG (PRADAXA) CAPSULE PO SCH (17:56)
[2019-09-16] MEDS ORDERED: ACETAMINOPHEN 500 MG TAB (TYLENOL) PO PRN (18:00)
[2019-09-16] MEDS ORDERED: ACETAMINOPHEN 325 MG TABLET PO PRN (18:15)
[2019-09-16 18:41] LABS: AMYLASE 53 U/L (25-125); LIPASE 26 U/L (8-78)
[2019-09-17] VITALS: BP 155/106
[2019-09-17 02:00] VITALS: BP 152/94
[2019-09-17 04:00] VITALS: BP 170/102
[2019-09-17 06:00] VITALS: BP 162/92
[2019-09-17] MEDS: NITROGLYCERIN 2% OINT 1 GM UNIT DOSE PACKET TOP SCH ×2 (06:29→12:05)
[2019-09-17] MEDS: CATHETER FLUSH 10 ML SYR IV SCH (06:29)
[2019-09-17] MEDS: inSUlin ASPART (NovoLOG) 1 UNIT/0.01 ML (CHARGE PER UNIT) SC SCH ×2 (06:29→11:00)
[2019-09-17] MEDS: DABIGATRAN 150 MG (PRADAXA) CAPSULE PO SCH (06:33)
[2019-09-17] MEDS ORDERED: FUROSEMIDE 40 MG/4 ML INJ (LASIX) IVP ONE (07:00)
[2019-09-17 08:00] VITALS: BP 156/117
[2019-09-17] MEDS ORDERED: FUROSEMIDE 20 MG (LASIX) TAB PO SCH (09:00)
--- NOTE | 2019-09-17 09:02 | Cardiology Progress Note ---
Subjective Date Seen by Provider: September 17, 2019 Time Seen by Provider: 09:00 Subjective/Events-last exam Patient is laying down in bed, feeling better, breathing better. Asking to go home. Review of Systems General: No Chills, No Night Sweats; Fatigue; No Malaise, No Appetite, No Other HEENT: No Head Aches, No Visual Changes, No Eye Pain, No Ear Pain, No Dysphasia, No Sinus Congestion, No Post Nasal Drip, No Sore Throat, No Other Pulmonary: Dyspnea; No Cough, No Pleuritic Chest Pain, No Other Cardiovascular: Edema; No: Chest Pain, Palpitations, Orthopnea, Paroxysmal Noc. Dyspnea, Lt Headedness, Other Focused Exam Lactate Level 09/15/19 23:25: Lactic Acid Level 1.48 Objective-Cardiology Exam Last Set of Vital Signs Vital Signs 09/16/19 09/17/19 09/17/19 03:00 03:58 06:00 Temp 36.4 Pulse 87 Resp 30 B/P (MAP) 162/92 (115) Pulse Ox 95 O2 Delivery Room Air O2 Flow Rate 2.00 Capillary Refill : Less Than 3 Seconds I&O Intake and Output 09/17/19 00:00 Intake Total 1175 ml Output Total 3100 ml Balance -1925 ml Intake Oral 1175 ml Output Urine Total 3100 ml # Voids 9 # Bowel Movements 1 Daily Weight Change No General: Alert, Oriented X3, Cooperative HEENT: Atraumatic, PERRLA Neck: Supple, No JVD, No Thyromegaly Lungs: Clear to Auscultation, Normal Air Movement Heart: Regular Rate, Normal S1, Normal S2, No Murmurs Abdomen: Normal Bowel Sounds, Soft, No Tenderness, No Hepatosplenomegaly, No Masses Extremities: No Clubbing, No Cyanosis, No Edema, Normal Pulses, No Tenderness/Swelling Skin: No Rashes, No Breakdown, No Significant Lesion Neuro: Normal Gait, Normal Speech, Strength at 5/5 X4 Ext, Normal Tone, Sensation Intact Psych/Mental Status: Mental Status NL, Mood NL Results Lab Laboratory Tests Test 09/16/19 18:15 09/16/19 20:42 Range/Units Amylase Level 53 25-125 U/L Lipase 26 8-78 U/L Glucometer 113 H 70-110 MG/DL A/P-Cardiology Admission Diagnosis Chest pain Acute on chronic CHF CAD Chronic afib Assessment/Plan Chest pain, has history of chronic stable angina. Denies any active chest pain at this time. EKG reveals afib, rate controlled, cardiac enzymes negative. Most recent stress test done in December 2018 revealed increased intestinal uptake affecting the quality of images with decreased uptake involving inferior wall, inferior apex with no significant ischemia. Continue on current medication and continue to monitor. Acute on chronic CHF, acute on chronic left ventricular diastolic dysfunction, hypertensive heart disease, echocardiogram was done today showing ejection fraction 50-55 percent, yearly dilated left atrium measuring 5.6 cm, pulmonary hypertension. Continue on diuretics, encouraged compliance with medication. Coronary artery disease-cardiac catheterization done on October 22, [address] [facility] revealing left main with 25 percent narrowing. LAD had apical 75-80 percent narrowing reduced to less than 25 percent following balloon angioplasty. First diagonal with 30-40 percent narrowing. Ramus branch with mild 25 percent narrowing. Circumflex artery with 30-40 percent diffuse narrowing and small system. RCA was moderately large vessel with 20-25 percent stenosis. Posterior lateral branch had 80 percent narrowing reduced to less than 25 percent following balloon angioplasty. PDA had 70 percent mid narrowing reduced to less than 25 percent following balloon angioplasty. Right femoral artery was widely patent. Most recent cardiac catheterization done May 09, 2016 revealed small vessel disease, especially in the circumflex artery that is not amenable to intervention. LAD has moderate disease with no obstructive disease. RCA had moderate disease at proximal and distal portion. Right PDA had significant disease but also small artery not amenable to intervention, stress test done in showing diaphragmatic attenuation and intestinal attenuation affecting the quality of the images, fixed defect at the inferior wall with ejection fraction 38 percent. Echo showed ejection fraction 50-55 percent. Continue to monitor Chronic atrial fibrillation, rate controlled. Maintained on Eliquis. [id number]- VASc score is 3, yearly risk of stroke without oral anticoagulation is 3.2 percent. Hypertension, controlled, continue to monitor blood pressure/heart rate. Depression/anxiety-managed by primary care physician Diabetes mellitus, followed and managed by primary care physician. Hyperlipidemia, last lipid profile done in June 2019 showing total cholesterol 138, HDL 38, LDL 91, triglyceride 140. Continue to monitor Okay for discharge from cardiology standpoint follow-up as an outpatient Clinical Quality Measures DVT/VTE Risk/Contraindication: Risk Factor Score Per Nursin RFS Level Per Nursing on Admit: 3=High BETH,BASHAR J MD September 17, 2019 09:02
[2019-09-17] MEDS ORDERED: ASPI-983 PO (09:04)
[2019-09-17] MEDS ORDERED: DABI150C5 PO (09:04)
[2019-09-17] MEDS ORDERED: FURO20TA4 PO (09:04)
[2019-09-17] MEDS ORDERED: FUROSEMIDE 40 MG/4 ML INJ (LASIX) ONE (09:51)
[2019-09-17] MEDS: ASPIRIN E.C. 81 MG (ECOTRIN) TAB PO SCH (10:27)
[2019-09-17] MEDS ORDERED: lisINopril 20 MG (PRINIVIL) TABLET PO ONE (11:00)
[2019-09-17] MEDS ORDERED: meTOproloL SUCCINATE 50 MG (TOPROL XL) TAB PO SCH (11:00)
[2019-09-17 12:00] VITALS: BP 160/106
--- NOTE | 2019-09-17 12:39 | Discharge Summary ---
Discharge Summary Hospital Course Was the Problem List Reviewed?: Yes Hospital Course Date of Admission: September 16, 2019 at 00:55 Admission Diagnosis : Family Physician/Provider: Laura Aragon DO Date of Discharge: 09/17/19 Discharge Diagnosis: [ ] Hospital Course: This is a 74 year old male with a history of CAD who presented to the emergency room with shortness of air. He was found to be in acute diastolic heart failure. He was also in a hypertensive urgency state. He was given IV lasix and placed on nitropaste and his blood pressure improved. He was admitted to the ICU and diuresed well with just one dose of IV lasix. His ECHO was stable and he had no return of his symptoms so it was decided he could be discharged home but he was counseled on the importance of using his lasix routinely. There was once again confusion about his anticoagulants. He states he has been taking eliquis but on his last discharge he was switched to pradaxa for cost. He states he is almost out of eliquis and then will go to aspirin when he runs out and I once again reminded him that with his atrial fibrillation he is at increased risk of stroke without proper anticoagulation with a NOAC. I discussed this with Dr. Fung and he will call out Xarelto to [place] under the [address] plan to keep the patient on an anticoagulant. Labs and Pending Lab Test: Laboratory Tests 09/16/19 18:15: Amylase Level 53, Lipase 26 09/16/19 20:42: Glucometer 113H Microbiology 09/16/19 MRSA Screen - Final, Complete MRSA not isolated 09/15/19 Blood Culture - Preliminary, Resulted No growth Home Meds Active Reported Metoprolol Tartrate 50 Mg Tablet 50 Mg PO BID Lisinopril 20 Mg Tablet 20 Mg PO DAILY Potassium Chloride 10 Meq Capsule.er 10 Meq PO DAILY Glimepiride 4 Mg Tablet 4 Mg PO BID Risperidone 0.5 Mg Tablet 0.5 Mg PO HS Donepezil HCl 10 Mg Tablet 10 Mg PO HS Magnesium (Magnesium Oxide) 400 Mg Tablet 400 Mg PO DAILY Escitalopram Oxalate 20 Mg Tablet 20 Mg PO DAILY Hydrochlorothiazide 25 Mg Tablet 25 Mg PO DAILY Nitroglycerin 0.4 Mg Tab.subl 0.4 Mg SL UD PRN Atorvastatin Calcium 10 Mg Tablet 10 Mg PO DAILY Allopurinol 100 Mg Tablet 100 Mg PO DAILY Tylenol Extra Strength (Acetaminophen) 500 Mg Tablet 500-1,000 Mg PO Q6H PRN TAKES 1-2 (500 MG) TABLETS Assessment/Pt Instructions 1. Acute on Chronic Diastolic Congestive Heart Failure--improved 2. Chronic Atrial Fibrillation--rate controlled 3. Hypertensive Urgency--improved 4. Diabetes mellitus II--stable 5. CAD--stable 6. History of Noncompliance with medications Discharge Instructions Discharge Diet: Cardiac Diet Activity as Tolerated: Yes Discharge Physical Examination Vital Signs Vital Signs Date Time Temp Pulse Resp B/P (MAP) Pulse Ox O2 Delivery O2 Flow Rate FiO2 09/17/19 08:00 37.1 09/17/19 08:00 84 21 156/117 (130) 91 Room Air 09/16/19 03:00 2.00 General Appearance: No Apparent Distress HEENT: Normal ENT Inspection Respiratory: Lungs Clear Cardiovascular: Systolic Murmur, Gallop/S4, Irregularly Irregular Gastrointestinal: Normal Bowel Sounds, Non Tender, Soft Extremity: Non Tender, No Calf Tenderness, No Pedal Edema Skin: Warm/Dry Neurologic/Psychiatric: Alert, Oriented x3 Allergies: Coded Allergies: NKANo Known Allergies (Unverified Allergy, Mild, 09/19/17) Discharge Summary Date of Admission September 16, 2019 at 00:55 Date of Discharge Clinical Quality Measures DVT/VTE Risk/Contraindication: Risk Factor Score Per Nursin RFS Level Per Nursing on Admit: 3=High LAURA ARAGON DO September 17, 2019 12:38
[2019-09-17] MEDS ORDERED: RIVA20TA PO ×2 (12:42→12:52)
[2019-09-18 11:19] LABS: PARAINFLU 1 PCR Not Detected (Not Detected); PARAINFLU 2 PCR Not Detected (Not Detected)
== END 2019-09-17 15:42 | disposition home or self-care (01) ==
LOC: EDUNIT# 22:41 → ER 22:42 → ICU 09-16 00:55
PROVIDERS: ADMIT Family Medicine; ATTEND Family Medicine
DX: I11.0 Hypertensive heart disease with heart failure (principal); I50.33 Acute on chronic diastolic (congestive) heart failure; I48.20 Chronic atrial fibrillation, unspecified; I16.0 Hypertensive urgency; J30.9 Allergic rhinitis, unspecified; I25.10 Atherosclerotic heart disease of native coronary artery without angina pectoris; E78.00 Pure hypercholesterolemia, unspecified; M19.90 Unspecified osteoarthritis, unspecified site; M54.9 Dorsalgia, unspecified; M10.9 Gout, unspecified; E11.9 Type 2 diabetes mellitus without complications; F32.9 Major depressive disorder, single episode, unspecified; F03.90 Unspecified dementia, unspecified severity, without behavioral disturbance, psychotic disturbance, mood disturbance, and anxiety; F41.9 Anxiety disorder, unspecified; Z79.899 Other long term (current) drug therapy; Z79.84 Long term (current) use of oral hypoglycemic drugs; Z87.891 Personal history of nicotine dependence; Z03.818 Encounter for observation for suspected exposure to other biological agents ruled out
CPT/HCPCS: 36415; 71045; 80053; 81000; 82150; 82550; 82553; 82962; 83605; 83615; 83690; 83735; 83874; 83880; 84145; 84484; 85025; 85610; 85652; 85730; 86141; 87040; 87081; 87631; 87635; 87798; 87804; 93005; 93041; 93306; 96374; 96375

== ENCOUNTER 2020-03-23 10:04 | Emergency (ER) | payer MEDICARE ==
[~2020-03-23] VITALS: Ht 172.7 cm; Wt 92.5 kg
[~2020-03-23 10:04] MED LIST changes: -ACET-2715 PO; +ACET-3075 PO; +AMLO-251 PO; -AMLO10TA7 PO; +ASPI-1238 PO; -CETI10TA21 PO; +CETI10TA49 PO; +DONE10TA41 PO; +ESCI20TA45 PO; +FURO20TA4 PO; +GLIM4TAB5 PO; +HYDR25TA4 PO; -LISI1TAB25 PO; +LISI1TAB46 PO; +MAGN400T39 PO; +METO50TA15 PO; +POTA10CA43 PO; +RISP0.5T65 PO; +RIVA20TA PO
--- NOTE | 2020-03-23 10:53 | ED General ---
General Stated Complaint: VOMITING WEAKNESS COVID EXPOSURE Source of Information: Patient Exam Limitations: No Limitations History of Present Illness Date Seen by Provider: Mar 23, 2020 Time Seen by Provider: 11:06 Initial Comments Patient is a 75-year-old male who presents to the emergency room today with a chief complaint of generalized weakness, nausea vomiting/dry heaves, occasional cough, subjective fevers and chills. Patient states that symptoms started yesterday. He lives at home with his who had coronavirus diagnosed originally on February 10. Patient had a subsequent coronavirus test 3 or 4 days ago that continues to be positive. Patient states that he has been sleeping in bed with his . They have not been self isolating. Patient states he is got a mild sore throat. He denies any black or bloody emesis. He has had some diarrhea he states that this is nonblack nonbloody. All other review of systems reviewed and negative except as stated above. Timing/Duration: 1-2 Days Severity: Moderate Associated Systoms: Loss of Appetite, Malaise, Nausea/Vomiting Allergies and Home Medications Allergies Coded Allergies: NKANo Known Allergies (Unverified Allergy, Mild, 09/19/17) Home Medications Acetaminophen 500 Mg Tablet, 500-1,000 MG PO Q6H PRN for PAIN-MILD, (Reported) TAKES 1-2 (500 MG) TABLETS Allopurinol 100 Mg Tablet, 100 MG PO DAILY, (Reported) Aspirin 81 Mg Tablet.dr, 81 MG PO DAILY Prescribed by: JEMAL BAEZ on 09/17/19 140 Atorvastatin Calcium 10 Mg Tablet, 10 MG PO DAILY, (Reported) Donepezil HCl 10 Mg Tablet, 10 MG PO HS, (Reported) Escitalopram Oxalate 20 Mg Tablet, 20 MG PO DAILY, (Reported) Furosemide 20 Mg Tablet, 20 MG PO DAILY Prescribed by: JEMAL BAEZ on 09/17/19 140 Glimepiride 4 Mg Tablet, 4 MG PO BID, (Reported) Lisinopril 20 Mg Tablet, 20 MG PO DAILY, (Reported) Magnesium Oxide 400 Mg Tablet, 400 MG PO DAILY, (Reported) Metoprolol Tartrate 50 Mg Tablet, 50 MG PO BID, (Reported) Nitroglycerin 0.4 Mg Tab.subl, 0.4 MG SL UD PRN for CHEST PAIN, (Reported) Potassium Chloride 10 Meq Capsule.er, 10 MEQ PO DAILY, (Reported) Risperidone 0.5 Mg Tablet, 0.5 MG PO HS, (Reported) Rivaroxaban 20 Mg Tablet, 20 MG PO DAILY Prescribed by: SKYLAR CAMPOS on 09/17/19 1252 Patient Home Medication List Home Medication List Reviewed: Yes Review of Systems Review of Systems Constitutional: dizziness, malaise, weakness EENTM: throat pain Respiratory: cough Cardiovascular: no symptoms reported Gastrointestinal: diarrhea, loss of appetite, nausea, vomiting Genitourinary: no symptoms reported Musculoskeletal: no symptoms reported Skin: no symptoms reported All Other Systems Reviewed Negative Unless Noted: Yes Past Zakanrx-Hcjmkl-Rdyewk Hx Patient Social History Alcohol Beverage of Choice: Beer Type Used: Cigarettes Former Smoker, Quit: Aug 07, 1987 2nd Hand Smoke Exposure: No Recent Hopitalizations: No Immunizations Up To Date Tetanus Booster (TDap): Less than 5yrs PED Vaccines UTD: Yes Date of Pneumonia Vaccine: September 15, 2017 Date of Influenza Vaccine: Feb 18, 2017 Seasonal Allergies Seasonal Allergies: Yes (POLLEN ) Past Medical History Surgeries: Yes (HERNIA; HEMORRHOIDS;EYE MUSCLE SURGERY;SKIN GRAFT;CARDIAC CATH- ANGIOPLASTY ) Abdominal, Cardiac, Gallbladder, Rectal Respiratory: No (pt states he has difficulty sleeping lying down, prefers to sleep upright) Currently Using CPAP: No Currently Using BIPAP: No Cardiac: Yes (CARDIAC CATHS--ANGIOPLASTY X 2--LAST CATH 2016-NO INTERVENTION;CHF) Atrial Fibrillation, Chronic Edema/Swelling, Coronary Artery Disease, High Cholesterol, Hypertension Neurological: Yes Dementia Reproductive Disorders: No Sexually Transmitted Disease: No HIV/AIDS: No Genitourinary: Yes Benign Prostatic Hyperpl Gastrointestinal: Yes Hiatal Hernia Musculoskeletal: Yes Degenerate Disk Disease, Arthritis, Chronic Back Pain, Gout Endocrine: Yes Diabetes, Non-Insulin dep HEENT: Yes Cataract Loss of Vision: Denies Hearing Impairment: Hard of Hearing Cancer: Yes Skin Did You Recieve Any Treatments: Yes What Type of Treatment Did You: Surgical Intervention Psychosocial: Yes Anxiety, Depression Integumentary: Yes (skin graft to left graham, BASAL CELL CARCINOMAS *10) Blood Disorders: No Adverse Reaction/Blood Tranf: No (N/A) Family Medical History Cardiovascular disease 19 FATHER Hypertension 19 FATHER No Pertinent Family Hx Physical Exam Vital Signs Vital Signs - First Documented 03/23/20 10:58 Temp 37.6 Pulse 93 Resp 18 B/P (MAP) 169/109 (129) Pulse Ox 93 O2 Delivery Room Air Capillary Refill : Height, Weight, BMI Height: 5'8.00" Weight: 207lbs. 0.0oz. 93.850072xw; 203.71 BMI Method:Stated General Appearance: No Apparent Distress, WD/WN Eyes: Bilateral Eye Normal Inspection, Bilateral Eye PERRL, Bilateral Eye EOMI HEENT: Normal ENT Inspection (Slightly dry oral mucosa), Pharynx Normal (On 9) Neck: Normal Inspection, Non Tender, Supple Respiratory: Lungs Clear, Normal Breath Sounds, No Accessory Muscle Use, No Respiratory Distress (In his chart thank you yes we will do) Cardiovascular: Regular Rate, Rhythm Gastrointestinal: Non Tender, Soft Back: Normal Inspection Extremity: Normal Inspection, Normal Range of Motion, Non Tender, No Calf Tenderness Neurologic/Psychiatric: Alert, Oriented x3, No Motor/Sensory Deficits, Normal Mood/Affect Skin: Normal Color, Warm/Dry Focused Exam Lactate Level 03/23/20 12:35: Lactic Acid Level 1.45 Lactic Acid Level Laboratory Tests Test 03/23/20 12:35 Lactic Acid Level 1.45 MMOL/L (0.50-2.00) Progress/Results/Core Measures Suspected Sepsis SIRS Temperature: Pulse: Respiratory Rate: Laboratory Tests 03/23/20 11:20: White Blood Count 3.8L Blood Pressure / Mean: 03/23/20 12:35: Lactic Acid Level 1.45 Laboratory Tests 03/23/20 11:20: Platelet Count 130 03/23/20 12:35: Creatinine 0.83 Results/Orders Lab Results Laboratory Tests Test 03/23/20 11:15 03/23/20 11:20 03/23/20 12:35 Range/Units Coronavirus 2019 (DILAN) Positive H Negative White Blood Count 3.8 L 4.3-11.0 10^3/uL Red Blood Count 5.48 4.30-5.52 10^6/uL Hemoglobin 17.0 13.3-17.7 g/dL Hematocrit 50 40-54 % Mean Corpuscular Volume 91 80-99 fL Mean Corpuscular Hemoglobin 31 25-34 pg Mean Corpuscular Hemoglobin Concent 34 32-36 g/dL Red Cell Distribution Width 13.8 10.0-14.5 % Platelet Count 130 130-400 10^3/uL Mean Platelet Volume 11.1 9.0-12.2 fL Immature Granulocyte % (Auto) 0 % Neutrophils (%) (Auto) 62 42-75 % Lymphocytes (%) (Auto) 20 12-44 % Monocytes (%) (Auto) 18 H 0-12 % Eosinophils (%) (Auto) 0 0-10 % Basophils (%) (Auto) 0 0-10 % Neutrophils # (Auto) 2.3 1.8-7.8 10^3/uL Lymphocytes # (Auto) 0.8 L 1.0-4.0 10^3/uL Monocytes # (Auto) 0.7 0.0-1.0 10^3/uL Eosinophils # (Auto) 0.0 0.0-0.3 10^3/uL Basophils # (Auto) 0.0 0.0-0.1 10^3/uL Immature Granulocyte # (Auto) 0.0 0.0-0.1 10^3/uL Sodium Level 134 L 135-145 MMOL/L Potassium Level 3.8 3.6-5.0 MMOL/L Chloride Level 102 98-107 MMOL/L Carbon Dioxide Level 21 21-32 MMOL/L Anion Gap 11 5-14 MMOL/L Blood Urea Nitrogen 12 7-18 MG/DL Creatinine 0.83 0.60-1.30 MG/DL Estimat Glomerular Filtration Rate > 60 BUN/Creatinine Ratio 14 Glucose Level 195 H 70-105 MG/DL Lactic Acid Level 1.45 0.50-2.00 MMOL/L Calcium Level 8.7 8.5-10.1 MG/DL My Orders Orders - TONI CHOUDHARY MD Chest 1 View, Ap/Pa Only (03/23/20 11:55) Cbc With Automated Diff (03/23/20 11:55) Basic Metabolic Panel (03/23/20 11:55) Lactic Acid Analyzer (03/23/20 11:55) Covid 19 Inhouse Test (03/23/20 11:55) Ns Iv 1000 Ml (Sodium Chloride 0.9%) (03/23/20 12:00) Ondansetron Injection (Zofran Injectio (03/23/20 12:00) Vital Signs/I&O 03/23/20 10:58 Temp 37.6 Pulse 93 Resp 18 B/P (MAP) 169/109 (129) Pulse Ox 93 O2 Delivery Room Air Capillary Refill : Progress Note : Time: 13:25 Progress Note Patient is a 75-year-old male who presents to the emergency room today with a chief complaint of generalized weakness, decreased appetite, occasional cough, fever and chills. Evaluation today includes a physical exam with basic laboratory studies including a lactic acid and COVID-19 rapid test. Patient's COVID-19 rapid test is positive today. His chest x-ray is reviewed and is not significant for any infiltrates or effusions or other acute pathology. Laboratory studies have been evaluated and he has a low white blood cell count but no left shift he does have a mild monocytosis. Lactic acid is less than 2. Clinically the patient appears well. His vital signs are stable. He is not requiring supplemental oxygen. Patient will be discharged home with conservative management, routine viral syndrome care. Good return precautions. He will be instructed to self quarantine for 14 days. Patient verbalizes understanding of the plan of care and is agreeable. All questions are sought and answered and he is stable for discharge. Diagnostic Imaging Diagonstic Imaging: Xray Plain Films/CT/US/NM/MRI: chest Comments [facility]. [place], [place] NAME: LISSET [facility] REC#: [id number] PT STATUS: REG ER : 1945 PHYSICIAN: TONI CHOUDHARY MD ADMIT DATE: 03/23/20/ER Draft Date of Exam:03/23/20 CHEST 1 VIEW, AP/PA ONLY Indication: Vomiting and diarrhea, fever and cough Frontal chest obtained at 1219 p.m. is compared to 09/15/2019 Cardiomegaly is again noted. There is unchanged central vascular congestion. There is no discrete infiltrate or pneumothorax or pleural fluid. There is no rubina edema. IMPRESSION: Cardiomegaly with central vascular congestion, without rubina edema. No overt consolidation or pleural fluid or discrete infiltrate. Dictated on workstation # [id number] Dict: 03/23/20 1214 Trans: 03/23/[address] [facility] [id number] Interpreted by: LESLIE KOHLER MD Electronically signed by: Departure Impression Primary Impression: 2019 novel coronavirus disease (COVID-19) Disposition: 01 HOME, SELF-CARE Condition: Stable Departure-Patient Inst. Decision time for Depature: 13:27 Referrals: ANA RAMESH DO (PCP/Family) Primary Care Physician Patient Instructions: Coronavirus Disease 2019 (COVID-19) Overview Add. Discharge Instructions: Continue your daily home medications as previously prescribed. Use [id number] Tylenol, ibuprofen as needed for aches pains and fever. Please call your primary care physician's office today for a follow-up appointment early in the week next week. Return to the emergency room for any worsening symptoms, shortness of breath, low oxygen saturations, or any other emergent concerning symptoms. You can use hot tea with honey for your cough or any [id number]-huw-phuexyp cough medications such as Robitussin. TONI CHOUDAHRY MD Mar 23, 2020 10:53
[2020-03-23] MEDS ORDERED: ONDANSETRON 4 MG/2 ML (SDV) Z0FRAN IVP ONE (12:00)
[2020-03-23] MEDS ORDERED: NS IV 1000 ML 1,000 ML IV SCH (12:00)
[2020-03-23 12:04] LABS: BASOPHILS % (AUTO) 0 % (0-10); EOSINOPHILS % (AUTO) 0 % (0-10); HEMATOCRIT 50 % (40-54); LYMPHOCYTES # (AUTO) 0.8 10^3/uL (1.0-4.0); LYMPHOCYTES % (AUTO) 20 % (12-44); MEAN CORPUSCULAR HEMOGLOBIN 31 pg (25-34); MEAN CORPUSCULAR HGB CONC 34 g/dL (32-36); MEAN CORPUSCULAR VOLUME 91 fL (80-99); MEAN PLATELET VOLUME 11.1 fL (9.0-12.2); MONOCYTES # (AUTO) 0.7 10^3/uL (0.0-1.0); MONOCYTES % (AUTO) 18 % (0-12); NEUTROPHILS # (AUTO) 2.3 10^3/uL (1.8-7.8); NEUTROPHILS % (AUTO) 62 % (42-75); PLATELET COUNT 130 10^3/uL (130-400); WHITE BLOOD COUNT 3.8 10^3/uL (4.3-11.0)
--- NOTE | 2020-03-23 12:17 | Diagnostic Imaging Report ---
Indication: Vomiting and diarrhea, fever and cough Frontal chest obtained at 1219 p.m. is compared to 09/15/2019 Cardiomegaly is again noted. There is unchanged central vascular congestion. There is no discrete infiltrate or pneumothorax or pleural fluid. There is no rbuina edema. IMPRESSION: Cardiomegaly with central vascular congestion, without rubina edema. No overt consolidation or pleural fluid or discrete infiltrate. Dictated by: Dictated on workstation # [id number]
[2020-03-23 13:06] LABS: CHLORIDE 102 MMOL/L (98-107); POTASSIUM 3.8 MMOL/L (3.6-5.0); SODIUM 134 MMOL/L (135-145)
[2020-03-23 13:08] LABS: CALCIUM 8.7 MG/DL (8.5-10.1); GLUCOSE 195 MG/DL (70-105)
[2020-03-23 13:10] LABS: CARBON DIOXIDE 21 MMOL/L (21-32)
[2020-03-23 13:12] LABS: CREATININE SERUM 0.83 MG/DL (0.60-1.30); GFR ESTIMATED > 60
[2020-03-23 13:13] LABS: BUN/CREATININE RATIO 14
[2020-03-23 14:25] VITALS: BP 169/107
== END 2020-03-23 14:25 | disposition home or self-care (01) ==
LOC: EDUNIT# 10:04 → ER 10:06
DX: U07.1 COVID-19 (principal); I10 Essential (primary) hypertension; E78.00 Pure hypercholesterolemia, unspecified; F32.9 Major depressive disorder, single episode, unspecified; F41.9 Anxiety disorder, unspecified; E11.9 Type 2 diabetes mellitus without complications; F03.90 Unspecified dementia, unspecified severity, without behavioral disturbance, psychotic disturbance, mood disturbance, and anxiety; Z82.49 Family history of ischemic heart disease and other diseases of the circulatory system; Z85.828 Personal history of other malignant neoplasm of skin; Z95.9 Presence of cardiac and vascular implant and graft, unspecified; Z87.891 Personal history of nicotine dependence; Z79.01 Long term (current) use of anticoagulants; Z79.82 Long term (current) use of aspirin
CPT/HCPCS: 71045; 80048; 83605; 85025; U0002; 36415; 87635

== ENCOUNTER 2020-03-26 16:08 | Inpatient (IN) | payer MEDICARE ==
[~2020-03-26] VITALS: Ht 170 cm; Wt 92.7 kg
[2020-03-26 16:33] LABS: ABG BASE EXCESS -4.1 MMOL/L (-2.5-2.5); ABG OXYGEN SATURATION 98 % (94-100); ABG PCO2 36 MMHG (35-45); ABG PH 7.37 (7.37-7.43); ABG PO2 132 MMHG (79-93); ABG TCO2 20.9 MMOL/L (21.0-31.0)
[2020-03-26 16:35] LABS: ALLENS TEST YES-POS; INSPIRED O2 4; PATIENT TEMP 101.2; VENTILATOR NO
[2020-03-26] MEDS ORDERED: LACTATED RINGERS 1,000 ML IV ONE ×3 (16:42→17:00)
[2020-03-26] MEDS ORDERED: ACETAMINOPHEN 500 MG TAB (TYLENOL) PO PRN (16:45)
[2020-03-26] MEDS ORDERED: ONDANSETRON 4 MG/2 ML (SDV) Z0FRAN IV PRN (16:45)
[2020-03-26 16:46] LABS: BASOPHILS % (AUTO) 0 % (0-10); EOSINOPHILS % (AUTO) 0 % (0-10); HEMATOCRIT 48 % (40-54); HEMOGLOBIN 16.4 g/dL (13.3-17.7); LYMPHOCYTES # (AUTO) 0.6 10^3/uL (1.0-4.0); LYMPHOCYTES % (AUTO) 11 % (12-44); MEAN CORPUSCULAR HEMOGLOBIN 31 pg (25-34); MEAN CORPUSCULAR HGB CONC 35 g/dL (32-36); MEAN CORPUSCULAR VOLUME 90 fL (80-99); MEAN PLATELET VOLUME 11.5 fL (9.0-12.2); MONOCYTES # (AUTO) 0.5 10^3/uL (0.0-1.0); MONOCYTES % (AUTO) 10 % (0-12); NEUTROPHILS # (AUTO) 3.9 10^3/uL (1.8-7.8); NEUTROPHILS % (AUTO) 79 % (42-75); PLATELET COUNT 156 10^3/uL (130-400); WHITE BLOOD COUNT 4.9 10^3/uL (4.3-11.0)
--- NOTE | 2020-03-26 16:51 | ED General ---
General Chief Complaint: Respiratory Problems Stated Complaint: COVID POSITIVE Source of Information: Caregiver Exam Limitations: No Limitations (NICHOLAS GUERRERO) History of Present Illness Date Seen by Provider: Mar 26, 2020 Time Seen by Provider: 16:21 Initial Comments Patient presents ER by EMS from home with chief complaint that 6 days ago he was diagnosed with COVID 19 any ER but at that time he was doing okay. Today he is requiring nonrebreather to maintain oxygen sats. He was in the low 80s on room air when they arrived. He has no baseline oxygen use. He quit smoking over 10 years ago. He does not use recreational drugs and denies drinking. He is having nausea as well as some diarrhea area and he has not been able to eat or keep anything down in the last couple days and feels very dehydrated. He's had fevers unknown MAXIMUM TEMPERATURE recently. He took Tylenol several hours before arrival. He is on rivaroxaban and does have a history of heart disease, hypertension and diabetes. He is not having any chest pain. He denies any significant pain anywhere. Chronic heart failure with EF of 50-55% from Sep, 2019. Hypertension, diastolic dysfunction, pulmonary hypertension. Diabetes, depression/anxiety, chronic atrial fibrillation on Xarelto and hyperlipidemia. (NICHOLAS GUERRERO) Allergies and Home Medications Allergies Coded Allergies: CLARICEANo Known Allergies (Unverified Allergy, Mild, 09/19/17) Home Medications Acetaminophen 500 Mg Tablet, 500-1,000 MG PO Q6H PRN for PAIN-MILD, (Reported) TAKES 1-2 (500 MG) TABLETS Allopurinol 100 Mg Tablet, 100 MG PO DAILY, (Reported) Aspirin 81 Mg Tablet.dr, 81 MG PO DAILY Prescribed by: JEMAL BAEZ on 09/17/19 140 Atorvastatin Calcium 10 Mg Tablet, 10 MG PO DAILY, (Reported) Donepezil HCl 10 Mg Tablet, 10 MG PO HS, (Reported) Escitalopram Oxalate 20 Mg Tablet, 20 MG PO DAILY, (Reported) Furosemide 20 Mg Tablet, 20 MG PO DAILY Prescribed by: JEMAL BAEZ on 09/17/19 140 Glimepiride 4 Mg Tablet, 4 MG PO BID, (Reported) Lisinopril 20 Mg Tablet, 20 MG PO DAILY, (Reported) Magnesium Oxide 400 Mg Tablet, 400 MG PO DAILY, (Reported) Metoprolol Tartrate 50 Mg Tablet, 50 MG PO BID, (Reported) Nitroglycerin 0.4 Mg Tab.subl, 0.4 MG SL UD PRN for CHEST PAIN, (Reported) Potassium Chloride 10 Meq Capsule.er, 10 MEQ PO DAILY, (Reported) Risperidone 0.5 Mg Tablet, 0.5 MG PO HS, (Reported) Rivaroxaban 20 Mg Tablet, 20 MG PO DAILY Prescribed by: SKYLAR CAMPOS on 09/17/19 1252 Patient Home Medication List Home Medication List Reviewed: Yes (NICHOLAS GUERRERO) Review of Systems Review of Systems Constitutional: No chills, No diaphoresis EENTM: No hearing loss, No ear pain Respiratory: cough; No phlegm; short of breath Cardiovascular: No chest pain, No edema Gastrointestinal: No abdominal pain, No constipation; diarrhea, loss of appetite, nausea, vomiting Genitourinary: No discharge, No dysuria Musculoskeletal: No back pain, No joint pain Skin: No pruritus, No rash (NICHOLAS GUERRERO) All Other Systems Reviewed Negative Unless Noted: Yes (NICHOLAS GUERRERO) Past Mxvipcc-Chweus-Sdxqzy Hx Patient Social History Alcohol Use: Denies Use Alcohol Beverage of Choice: Beer Recreational Drug Use: No Smoking Status: Former Smoker Type Used: Cigarettes Former Smoker, Quit: Aug 07, 1987 2nd Hand Smoke Exposure: No Recent Hopitalizations: No (NICHOLAS GUERRERO) Immunizations Up To Date Tetanus Booster (TDap): Less than 5yrs PED Vaccines UTD: Yes Date of Pneumonia Vaccine: September 15, 2017 Date of Influenza Vaccine: Feb 18, 2017 (NICHOLAS GUERRERO) Seasonal Allergies Seasonal Allergies: Yes (POLLEN ) (NICHOLAS GUERRERO) Past Medical History Surgeries: Yes (HERNIA; HEMORRHOIDS;EYE MUSCLE SURGERY;SKIN GRAFT;CARDIAC CATH- ANGIOPLASTY ) Abdominal, Cardiac, Gallbladder, Rectal Respiratory: No (pt states he has difficulty sleeping lying down, prefers to sleep upright) Currently Using CPAP: No Currently Using BIPAP: No Cardiac: Yes (CARDIAC CATHS--ANGIOPLASTY X 2--LAST CATH 2016-NO INTERVENTION;CHF) Atrial Fibrillation, Chronic Edema/Swelling, Coronary Artery Disease, High Cholesterol, Hypertension Neurological: Yes Dementia Reproductive Disorders: No Sexually Transmitted Disease: No HIV/AIDS: No Genitourinary: Yes Benign Prostatic Hyperpl Gastrointestinal: Yes Hiatal Hernia Musculoskeletal: Yes Degenerate Disk Disease, Arthritis, Chronic Back Pain, Gout Endocrine: Yes Diabetes, Non-Insulin dep HEENT: Yes Cataract Loss of Vision: Denies Hearing Impairment: Hard of Hearing Cancer: Yes Skin Did You Recieve Any Treatments: Yes What Type of Treatment Did You: Surgical Intervention Psychosocial: Yes Anxiety, Depression Integumentary: Yes (skin graft to left graham, BASAL CELL CARCINOMAS *10) Blood Disorders: No Adverse Reaction/Blood Tranf: No (N/A) (NICHOLAS GUERRERO) Family Medical History Cardiovascular disease 19 FATHER Hypertension 19 FATHER No Pertinent Family Hx (NICHOLAS GUERRERO) Physical Exam-Suspected Sepsis Physical Exam Vital Signs Vital Signs - First Documented 03/26/20 16:08 Temp 38.4 Pulse 115 Resp 37 B/P (MAP) 142/116 (125) Pulse Ox 97 O2 Delivery OxyMask O2 Flow Rate 8.00 Capillary Refill : Height, Weight, BMI Height: 5'8.00" Weight: 207lbs. 0.0oz. 93.194710in; 31.00 BMI Method:Stated General Appearance: Anxious, Moderate Distress Eyes: Bilateral Eye Normal Inspection, Bilateral Eye PERRL, Bilateral Eye EOMI HEENT: PERRL/EOMI, Pharynx Normal, Moist Mucous Membranes Neck: Normal Inspection, Non Tender, Supple Respiratory: Lungs Clear, No Accessory Muscle Use, Decreased Breath Sounds, Respiratory Distress (mild tachypnea in the low 20s with sats in the mid 80s on room air.) Cardiovascular: Regular Rate, Rhythm, No Edema, Normal Peripheral Pulses, Tachycardia Gastrointestinal: Normal Bowel Sounds, No Organomegaly, Non Tender, Soft Extremity: Normal Capillary Refill, Normal Inspection, Normal Range of Motion Neurologic/Psychiatric: Alert, Oriented x3, No Motor/Sensory Deficits Skin: normal color, warm/dry (NICHOLAS GUERRERO) Vital Signs Vital Signs - First Documented 03/26/20 16:08 Temp 38.4 Pulse 115 Resp 37 B/P (MAP) 142/116 (125) Pulse Ox 97 O2 Delivery OxyMask O2 Flow Rate 8.00 (SOHAIL RAZA APRN) Focused Exam Sepsis Stage: Severe Sepsis Possible Source: Pulmonary Lactate Level 03/26/20 16:59: Lactic Acid Level 3.58*H (NICHOLAS GUERRERO) Lactate Level 03/26/20 16:59: Lactic Acid Level 3.58*H (SOHAIL RAZA APRN) Time of Focused Exam: 18:00 Respiratory: Lungs Clear, No Accessory Muscle Use, Decreased Breath Sounds, Respiratory Distress Cardiovascular: Regular Rate, Rhythm, Normal Peripheral Pulses Capillary Refill: Less Than 3 Seconds Peripheral Pulses: 2+ Radial Pulses (R), 2+ Radial Pulses (L) Skin: normal color, diaphoresis Lactic Acid Level Laboratory Tests Test 03/26/20 16:59 Lactic Acid Level 3.58 MMOL/L (0.50-2.00) *H (NICHOLAS GUERRERO) Lactic Acid Level Laboratory Tests Test 03/26/20 16:59 Lactic Acid Level 3.58 MMOL/L (0.50-2.00) *H (SOHAIL RAZA APRN) Within 3hrs of presentation: Admin fluids, Admin ABX, Blood cultures prior to ABX's, Focus exam, Lactate level (NICHOLAS GUERRERO) Progress/Results/Core Measures Suspected Sepsis SIRS Temperature: Pulse: Respiratory Rate: Laboratory Tests 03/26/20 16:32: White Blood Count 4.9 Blood Pressure / Mean: 03/26/20 16:59: Lactic Acid Level 3.58*H Laboratory Tests 03/26/20 16:32: INR Comment 1.5H, Platelet Count 156 03/26/20 16:59: Creatinine 1.09, Total Bilirubin 1.5H (NICHOLAS GUERRERO) SIRS Laboratory Tests 03/26/20 16:32: White Blood Count 4.9 03/26/20 16:59: Lactic Acid Level 3.58*H Laboratory Tests 03/26/20 16:32: INR Comment 1.5H, Platelet Count 156 03/26/20 16:59: Creatinine 1.09, Total Bilirubin 1.5H (SOHAIL RAZA APRN) Results/Orders Lab Results Laboratory Tests Test 03/26/20 16:25 03/26/20 16:32 03/26/20 16:59 03/26/20 17:10 Range/Units Blood Gas Puncture Site L RAD Blood Gas Patient Temperature 101.2 Arterial Blood pH 7.37 7.37-7.43 Arterial Blood Partial Pressure CO2 36 35-45 MMHG Arterial Blood Partial Pressure O2 132 H 79-93 MMHG Arterial Blood HCO3 20 L 23-27 MMOL/L Arterial Blood Total CO2 20.9 L 21.0-31.0 MMOL/L Arterial Blood Oxygen Saturation 98 94-100 % Arterial Blood Base Excess -4.1 L -2.5-2.5 MMOL/L Trent Test YES-POS Blood Gas Ventilator Setting NO Blood Gas Inspired Oxygen 4 White Blood Count 4.9 4.3-11.0 10^3/uL Red Blood Count 5.27 4.30-5.52 10^6/uL Hemoglobin 16.4 13.3-17.7 g/dL Hematocrit 48 40-54 % Mean Corpuscular Volume 90 80-99 fL Mean Corpuscular Hemoglobin 31 25-34 pg Mean Corpuscular Hemoglobin Concent 35 32-36 g/dL Red Cell Distribution Width 13.7 10.0-14.5 % Platelet Count 156 130-400 10^3/uL Mean Platelet Volume 11.5 9.0-12.2 fL Immature Granulocyte % (Auto) 0 % Neutrophils (%) (Auto) 79 H 42-75 % Lymphocytes (%) (Auto) 11 L 12-44 % Monocytes (%) (Auto) 10 0-12 % Eosinophils (%) (Auto) 0 0-10 % Basophils (%) (Auto) 0 0-10 % Neutrophils # (Auto) 3.9 1.8-7.8 10^3/uL Lymphocytes # (Auto) 0.6 L 1.0-4.0 10^3/uL Monocytes # (Auto) 0.5 0.0-1.0 10^3/uL Eosinophils # (Auto) 0.0 0.0-0.3 10^3/uL Basophils # (Auto) 0.0 0.0-0.1 10^3/uL Immature Granulocyte # (Auto) 0.0 0.0-0.1 10^3/uL Prothrombin Time 18.7 H 12.2-14.7 SEC INR Comment 1.5 H 0.8-1.4 Activated Partial Thromboplast Time 37 H 24-35 SEC D-Dimer 0.42 0.00-0.49 UG/ML Sodium Level 137 135-145 MMOL/L Potassium Level 4.4 3.6-5.0 MMOL/L Chloride Level 101 98-107 MMOL/L Carbon Dioxide Level 18 L 21-32 MMOL/L Anion Gap 18 H 5-14 MMOL/L Blood Urea Nitrogen 26 H 7-18 MG/DL Creatinine 1.09 0.60-1.30 MG/DL Estimat Glomerular Filtration Rate > 60 BUN/Creatinine Ratio 24 Glucose Level 281 H 70-105 MG/DL Lactic Acid Level 3.58 *H 0.50-2.00 MMOL/L Calcium Level 8.9 8.5-10.1 MG/DL Corrected Calcium 9.0 8.5-10.1 MG/DL Total Bilirubin 1.5 H 0.1-1.0 MG/DL Aspartate Amino Transf (AST/SGOT) 60 H 5-34 U/L Alanine Aminotransferase (ALT/SGPT) 35 0-55 U/L Alkaline Phosphatase 79 40-136 U/L C-Reactive Protein High Sensitivity 3.74 H 0.00-0.50 MG/DL Total Protein 7.6 6.4-8.2 GM/DL Albumin 3.9 3.2-4.5 GM/DL My Orders Orders - NICHOLAS GUERRERO Sputum Culture (03/26/20 16:42) Urinalysis (03/26/20 16:42) Urine Culture (03/26/20 16:42) Protime With Inr (03/26/20 16:42) Partial Thromboplastin Time (03/26/20 16:42) Acetaminophen Tablet (Tylenol Tablet) (03/26/20 16:45) Ed Iv/Invasive Line Start (03/26/20 16:42) Ed Iv/Invasive Line Start (03/26/20 16:42) Vital Signs Adult Sepsis Patie Q15M (03/26/20 16:42) Ondansetron Injection (Zofran Injectio (03/26/20 16:45) O2 (03/26/20 16:42) Remove Rings In Anticipation O (03/26/20 16:42) Influenza A And B Antigens (03/26/20 16:42) Lactated Ringers (Lr 1000 Ml Iv Solution (03/26/20 16:42) Fibrin Degradation Products (03/26/20 16:42) Lactated Ringers (Lr 1000 Ml Iv Solution (03/26/20 16:45) Lactated Ringers (Lr 1000 Ml Iv Solution (03/26/20 17:00) Medications Given in ED Current Medications Medications Dose Ordered Sig/Jaylen Route Start Time Stop Time Status Last Admin Dose Admin Acetaminophen 1,000 mg ONCE PRN PO 03/26/20 16:45 03/26/20 17:05 DC 03/26/20 17:00 1,000 MG Lactated Ringer's 1,000 ml @ 0 mls/hr Q0M ONCE IV 03/26/20 16:42 03/26/20 16:46 DC 03/26/20 17:02 1,000 MLS/HR Lactated Ringer's 1,000 ml @ 0 mls/hr Q0M ONCE IV 03/26/20 16:45 03/26/20 16:46 DC 03/26/20 17:05 1,000 MLS/HR Lactated Ringer's 1,000 ml @ 0 mls/hr Q0M ONCE IV 03/26/20 17:00 03/26/20 17:01 DC 03/26/20 17:17 1,000 MLS/HR Ondansetron HCl 8 mg PRN PRN IV 03/26/20 16:45 03/26/20 17:05 DC 03/26/20 16:59 8 MG Vital Signs/I&O 03/26/20 03/26/20 16:08 16:10 Temp 38.4 Pulse 115 Resp 37 B/P (MAP) 142/116 (125) Pulse Ox 97 80 O2 Delivery OxyMask OxyMask O2 Flow Rate 8.00 6.00 Capillary Refill : (NICHOLAS GUERRERO) Lab Results Laboratory Tests Test 03/26/20 16:25 03/26/20 16:32 03/26/20 16:59 03/26/20 17:10 Range/Units Blood Gas Puncture Site L RAD Blood Gas Patient Temperature 101.2 Arterial Blood pH 7.37 7.37-7.43 Arterial Blood Partial Pressure CO2 36 35-45 MMHG Arterial Blood Partial Pressure O2 132 H 79-93 MMHG Arterial Blood HCO3 20 L 23-27 MMOL/L Arterial Blood Total CO2 20.9 L 21.0-31.0 MMOL/L Arterial Blood Oxygen Saturation 98 94-100 % Arterial Blood Base Excess -4.1 L -2.5-2.5 MMOL/L Trent Test YES-POS Blood Gas Ventilator Setting NO Blood Gas Inspired Oxygen 4 White Blood Count 4.9 4.3-11.0 10^3/uL Red Blood Count 5.27 4.30-5.52 10^6/uL Hemoglobin 16.4 13.3-17.7 g/dL Hematocrit 48 40-54 % Mean Corpuscular Volume 90 80-99 fL Mean Corpuscular Hemoglobin 31 25-34 pg Mean Corpuscular Hemoglobin Concent 35 32-36 g/dL Red Cell Distribution Width 13.7 10.0-14.5 % Platelet Count 156 130-400 10^3/uL Mean Platelet Volume 11.5 9.0-12.2 fL Immature Granulocyte % (Auto) 0 % Neutrophils (%) (Auto) 79 H 42-75 % Lymphocytes (%) (Auto) 11 L 12-44 % Monocytes (%) (Auto) 10 0-12 % Eosinophils (%) (Auto) 0 0-10 % Basophils (%) (Auto) 0 0-10 % Neutrophils # (Auto) 3.9 1.8-7.8 10^3/uL Lymphocytes # (Auto) 0.6 L 1.0-4.0 10^3/uL Monocytes # (Auto) 0.5 0.0-1.0 10^3/uL Eosinophils # (Auto) 0.0 0.0-0.3 10^3/uL Basophils # (Auto) 0.0 0.0-0.1 10^3/uL Immature Granulocyte # (Auto) 0.0 0.0-0.1 10^3/uL Prothrombin Time 18.7 H 12.2-14.7 SEC INR Comment 1.5 H 0.8-1.4 Activated Partial Thromboplast Time 37 H 24-35 SEC D-Dimer 0.42 0.00-0.49 UG/ML Sodium Level 137 135-145 MMOL/L Potassium Level 4.4 3.6-5.0 MMOL/L Chloride Level 101 98-107 MMOL/L Carbon Dioxide Level 18 L 21-32 MMOL/L Anion Gap 18 H 5-14 MMOL/L Blood Urea Nitrogen 26 H 7-18 MG/DL Creatinine 1.09 0.60-1.30 MG/DL Estimat Glomerular Filtration Rate > 60 BUN/Creatinine Ratio 24 Glucose Level 281 H 70-105 MG/DL Lactic Acid Level 3.58 *H 0.50-2.00 MMOL/L Calcium Level 8.9 8.5-10.1 MG/DL Corrected Calcium 9.0 8.5-10.1 MG/DL Total Bilirubin 1.5 H 0.1-1.0 MG/DL Aspartate Amino Transf (AST/SGOT) 60 H 5-34 U/L Alanine Aminotransferase (ALT/SGPT) 35 0-55 U/L Alkaline Phosphatase 79 40-136 U/L C-Reactive Protein High Sensitivity 3.74 H 0.00-0.50 MG/DL Total Protein 7.6 6.4-8.2 GM/DL Albumin 3.9 3.2-4.5 GM/DL Procalcitonin 0.35 H <0.10 NG/ML Urine Color YELLOW Urine Clarity CLEAR Urine pH 6.0 5-9 Urine Specific [place] >=1.030 1.016-1.022 Urine Protein 3+ H NEGATIVE Urine Glucose (UA) 2+ H NEGATIVE Urine Ketones TRACE H NEGATIVE Urine Nitrite NEGATIVE NEGATIVE Urine Bilirubin NEGATIVE NEGATIVE Urine Urobilinogen 0.2 < = 1.0 MG/DL Urine Leukocyte Esterase NEGATIVE NEGATIVE Urine RBC (Auto) 2+ H NEGATIVE Urine RBC NONE /HPF Urine WBC RARE /HPF Urine Squamous Epithelial Cells NONE /HPF Urine Crystals NONE /LPF Urine Amorphous Sediment FEW SOPHIA URATES H /LPF Urine Bacteria NEGATIVE /HPF Urine Casts PRESENT /LPF Urine Hyaline Casts 0-2 H /LPF Urine Granular Casts 0-2 H /LPF Urine Mucus NEGATIVE /LPF Urine Culture Indicated NO Micro Results Microbiology 03/26/20 Influenza Types A,B Antigen (VANE) - Final, Complete My Orders Orders - SOHAIL RAZA BLOCK HACKER Cbc With Automated Diff (03/26/20 16:13) Comprehensive Metabolic Panel (03/26/20 16:13) Blood Culture (03/26/20 16:13) Lactic Acid Analyzer (03/26/20 16:13) Hs C Reactive Protein (03/26/20 16:13) Procalcitonin (Pct) (03/26/20 16:13) Chest 1 View, Ap/Pa Only (03/26/20 16:13) Arterial Blood Gas (03/26/20 16:27) Medications Given in ED Current Medications Medications Dose Ordered Sig/Jaylen Route Start Time Stop Time Status Last Admin Dose Admin Acetaminophen 1,000 mg ONCE PRN PO 03/26/20 16:45 03/26/20 17:05 DC 03/26/20 17:00 1,000 MG Lactated Ringer's 1,000 ml @ 0 mls/hr Q0M ONCE IV 03/26/20 16:42 03/26/20 16:46 DC 03/26/20 17:02 1,000 MLS/HR Lactated Ringer's 1,000 ml @ 0 mls/hr Q0M ONCE IV 03/26/20 16:45 03/26/20 16:46 DC 03/26/20 17:05 1,000 MLS/HR Lactated Ringer's 1,000 ml @ 0 mls/hr Q0M ONCE IV 03/26/20 17:00 03/26/20 17:01 DC 03/26/20 17:17 1,000 MLS/HR Ondansetron HCl 8 mg PRN PRN IV 03/26/20 16:45 03/26/20 17:05 DC 03/26/20 16:59 8 MG Vital Signs/I&O 03/26/20 03/26/20 03/26/20 03/26/20 16:08 16:10 17:30 17:39 Temp 38.4 Pulse 115 103 100 Resp 37 25 37 B/P (MAP) 142/116 (125) 152/103 (125) Pulse Ox 97 80 98 97 O2 Delivery OxyMask OxyMask OxyMask O2 Flow Rate 8.00 6.00 30.00 6.00 (SOHAIL RAZA APRN) Progress Note #1: Time: 16:50 Progress Note ABG, labs chest x-ray septic workup but we will hold off on antibiotics to we actually see credible signs of a bacterial incursion. For now we are treating COVID-19. He is exquisitely dry and does take Lasix at baseline so we'll start with 2 L which is more than 20 mL/kg. Shock index is 0.75 marginally elevated therefore going to give him the full 30 mL/kg or 3 L of fluid. While he is on Lasix or some diastolic heart dysfunction however he appears to be exquisitely dry on clinical exam and has very flaccid veins. Progress Note #2: Time: 17:16 Progress Note ABG shows some hypoxia. The PaO2 is higher than I would expect given his oxygen demand and sats making me think that he has some peripheral vasoconstriction due to endogenous adrenaline. This in combination with his marginally elevated shock index has prompted us to give a full 30 mL/kg fluid bolus. For oxygenation we'll put him on CPAP 7 cm water pressure and give him some supplemental oxygen. Plan ICU care. (NICHOLAS GUERRERO) Diagnostic Imaging Diagonstic Imaging: Xray Plain Films/CT/US/NM/MRI: chest (1v) Comments Bilateral small infiltrates consistent with viral pneumonia. [facility], [place] NAME: [facility] REC#: [id number] PT STATUS: ADM IN : 1945 PHYSICIAN: SOHAIL RAZA APRN ADMIT DATE: 03/26/20/ICU Signed Date of Exam:03/26/20 CHEST 1 VIEW, AP/PA ONLY INDICATION: Covid person of interest. EXAMINATION: Chest, 03/26/2020. COMPARISON: 03/23/2020. FINDINGS: Heart is unremarkable. Pulmonary vasculature within normal. Lungs and pleural spaces clear. No pneumothorax or effusion. IMPRESSION: No acute process. Dictated by: Dictated on workstation # [id number] Dict: 03/26/201724 Trans: 03/26/201933 [facility] [id number] Interpreted by: LUZMARIA CURRAN MD Electronically signed by: LUZMARIA CURRAN MD 03/26/201933 Reviewed: Reviewed by Me (NICHOLAS GUERRERO) Transfer of Care Transfer of Care Time: 18:00 Care transferred to: Sohail Raza (NICHOLAS GUERRERO) Departure Communication (Admissions) Time/Spoke to Admitting Phy: 18:20 Dr. Ann accepts the patient. (NICHOLAS GUERRERO) 1822-I have taken over care of the patient. He is already on Xarelto for his atrial fibrillation which is currently rate controlled in the 90s. Blood pressure 144/91. Respiratory rate 15 this is on CPAP at 7 cm of oxygen 30%. His SPO2 is 98%. (SOHAIL RAZA APRN) Impression Primary Impression: 2019 novel coronavirus disease (COVID-19) Additional Impressions: Acute respiratory failure with hypoxemia Severe sepsis Disposition: ADMITTED INPATIENT Condition: Stable Admissions Decision to Admit Reason: Admit from ER (General) Decision to Admit/Date: Mar 26, 2020 Time/Decision to Admit Time: 18:23 (NICHOLAS GUERRERO) Decision to Admit Reason: Admit from ER (General) Decision to Admit/Date: Mar 26, 2020 Time/Decision to Admit Time: 18:23 (SOHAIL RAZA APRN) Departure-Patient Inst. Referrals: ANA RAMESH DO (PCP/Family) Primary Care Physician NICHOLAS GUERRERO Mar 26, 2020 16:50 SOHAIL RAZA APRN Mar 26, 2020 18:24
[2020-03-26 16:59] LABS: FIBRIN DEGRADATION PRODUCTS 0.42 UG/ML (0.00-0.49); INR 1.5 (0.8-1.4); PROTHROMBIN TIME PATIENT 18.7 SEC (12.2-14.7)
[2020-03-26 17:16] LABS: ALBUMIN 3.9 GM/DL (3.2-4.5)
[2020-03-26 17:17] LABS: CHLORIDE 101 MMOL/L (98-107); POTASSIUM 4.4 MMOL/L (3.6-5.0); SODIUM 137 MMOL/L (135-145)
[2020-03-26 17:18] LABS: CALCIUM 8.9 MG/DL (8.5-10.1)
[2020-03-26 17:19] LABS: GLUCOSE 281 MG/DL (70-105); TOTAL PROTEIN 7.6 GM/DL (6.4-8.2)
[2020-03-26 17:19] LABS: BILIRUBIN,URINE NEGATIVE (NEGATIVE); CLARITY,URINE CLEAR; COLOR,URINE YELLOW; GLUCOSE, URINE (UA) 2+ (NEGATIVE); KETONES,URINE TRACE (NEGATIVE); LEUKOCYTE ESTERASE ,URINE NEGATIVE (NEGATIVE); NITRITE,URINE NEGATIVE (NEGATIVE); PROTEIN,URINE 3+ (NEGATIVE)
[2020-03-26 17:20] LABS: CARBON DIOXIDE 18 MMOL/L (21-32)
[2020-03-26 17:21] LABS: BILIRUBIN,TOTAL 1.5 MG/DL (0.1-1.0)
[2020-03-26 17:22] LABS: ALKALINE PHOSPHATASE 79 U/L (40-136)
[2020-03-26 17:23] LABS: CREATININE SERUM 1.09 MG/DL (0.60-1.30); GFR ESTIMATED > 60
[2020-03-26 17:24] LABS: BUN/CREATININE RATIO 24
[2020-03-26 17:26] LABS: ALANINE AMINOTRANSFERASE 35 U/L (0-55)
[2020-03-26 17:30] VITALS: BP 152/103
--- NOTE | 2020-03-26 17:35 | Diagnostic Imaging Report ---
INDICATION: Covid person of interest. EXAMINATION: Chest, 03/26/2020. COMPARISON: 03/23/2020. FINDINGS: Heart is unremarkable. Pulmonary vasculature within normal. Lungs and pleural spaces clear. No pneumothorax or effusion. IMPRESSION: No acute process. Dictated by: Dictated on workstation # [id number]
[2020-03-26 17:43] LABS: AMORPHOUS SEDIMENT,UR FEW AMOR URATES /LPF; BACTERIA,URINE NEGATIVE /HPF; GRANULAR CASTS,URINE 0-2 /LPF; HYALINE CASTS, URINE 0-2 /LPF; WBC,URINE RARE /HPF
--- NOTE | 2020-03-26 18:05 | NUR ---
PT PULLED OUT L SIDE IV AND BIPAP OFF PER PT. PT IS CONFUSED. O2 SAT DOWN TO 83%. PT BACK TO BIPAP.
--- NOTE | 2020-03-26 19:24 | NUR ---
ALBUTEROL INHALER 4 PUFFS Q6 AND Q2 PRN. INITIATE O2 (2-6L)TO KEEP SATS GREATER THAN 90%. IS TID. RT TO REASSESS OR REEVALUATE IN 72 HOURS OR NEEDED. Addendum: 03/26/20 at 1924 by SARAHI AVENDANO RT Amended: Links added.
[2020-03-26] MEDS ORDERED: RT-ALBUTEROL INHALER HFA (VENTOLIN HFA) 18 GM IH PRN (19:30)
[2020-03-26] MEDS ORDERED: LORazepam INJ 2 MG/ML (ATIVAN) VIAL IVP PRN (20:30)
[2020-03-26] MEDS: LACTATED RINGERS 1,000 ML IV SCH (20:36)
[2020-03-26] MEDS: inSUlin ASPART (NovoLOG) 1 UNIT/0.01 ML (CHARGE PER UNIT) SC SCH (21:14)
[2020-03-26] MEDS: RT-ALBUTEROL INHALER HFA (VENTOLIN HFA) 18 GM IH SCH (21:30)
[2020-03-27] MEDS: ACETAMINOPHEN 325 MG TABLET PO PRN (01:35)
[2020-03-27] MEDS: RT-ALBUTEROL INHALER HFA (VENTOLIN HFA) 18 GM IH SCH ×4 (02:47→20:14)
[2020-03-27] MEDS ORDERED: ONDANSETRON 4 MG/2 ML (SDV) Z0FRAN ONE (02:49)
[2020-03-27] MEDS ORDERED: ONDANSETRON 4 MG/2 ML (SDV) Z0FRAN IVP PRN (03:15)
[2020-03-27 03:58] LABS: BASOPHILS % (AUTO) 0 % (0-10); EOSINOPHILS % (AUTO) 0 % (0-10); HEMATOCRIT 43 % (40-54); HEMOGLOBIN 14.3 g/dL (13.3-17.7); LYMPHOCYTES # (AUTO) 0.6 10^3/uL (1.0-4.0); LYMPHOCYTES % (AUTO) 16 % (12-44); MEAN CORPUSCULAR HEMOGLOBIN 31 pg (25-34); MEAN CORPUSCULAR HGB CONC 33 g/dL (32-36); MEAN CORPUSCULAR VOLUME 92 fL (80-99); MEAN PLATELET VOLUME 10.1 fL (9.0-12.2); MONOCYTES # (AUTO) 0.3 10^3/uL (0.0-1.0); MONOCYTES % (AUTO) 10 % (0-12); NEUTROPHILS # (AUTO) 2.6 10^3/uL (1.8-7.8); NEUTROPHILS % (AUTO) 74 % (42-75); PLATELET COUNT 110 10^3/uL (130-400); WHITE BLOOD COUNT 3.5 10^3/uL (4.3-11.0)
[2020-03-27 04:08] LABS: CHLORIDE 103 MMOL/L (98-107); POTASSIUM 3.4 MMOL/L (3.6-5.0); SODIUM 137 MMOL/L (135-145)
[2020-03-27 04:09] LABS: CALCIUM 8.2 MG/DL (8.5-10.1)
[2020-03-27 04:10] LABS: GLUCOSE 137 MG/DL (70-105)
[2020-03-27 04:12] LABS: CARBON DIOXIDE 20 MMOL/L (21-32)
[2020-03-27 04:14] LABS: CREATININE SERUM 0.76 MG/DL (0.60-1.30); GFR ESTIMATED > 60; PHOSPHORUS 2.8 MG/DL (2.3-4.7)
[2020-03-27 04:15] LABS: BUN/CREATININE RATIO 22
[2020-03-27 04:16] LABS: MAGNESIUM 1.7 MG/DL (1.6-2.4)
[2020-03-27] MEDS: inSUlin ASPART (NovoLOG) 1 UNIT/0.01 ML (CHARGE PER UNIT) SC SCH ×4 (04:24→19:50)
[2020-03-27] MEDS ORDERED: LABETALOL HCL 20 MG/4 ML VIAL ONE (05:14)
[2020-03-27] MEDS ORDERED: LABETALOL HCL 20 MG/4 ML VIAL IV PRN ×2 (05:15)
[2020-03-27] MEDS: LACTATED RINGERS 1,000 ML IV SCH (05:29)
--- NOTE | 2020-03-27 05:40 | NUR ---
SBP 187, DR GROVES IN EICU NOTIFIED, ORDER RECEIVED FOR LABETOLOL PRN
[2020-03-27] MEDS ORDERED: MAGNESIUM 1 GM/100 ML IVPB 100 ML IV SCH (06:00)
[2020-03-27] MEDS ORDERED: KCL 20 MEQ TAB (K-DUR) PO SCH ×2 (06:00→09:00)
[2020-03-27] MEDS ORDERED: POTASSIUM CL 10MEQ/50ML IVPB 50 ML IV SCH (06:00)
[2020-03-27] MEDS ORDERED: FLU QUAD HIGH DOSE 240 MCG/0.7 ML 2020-21 (FLUZONE) IM ONE (07:30)
[2020-03-27] MEDS ORDERED: ACETAMINOPHEN 500 MG TAB (TYLENOL) PO PRN (08:15)
[2020-03-27] MEDS ORDERED: KCL 20 MEQ TAB (K-DUR) PO ONE (09:00)
[2020-03-27] MEDS ORDERED: ENOXAPARIN 40 MG/0.4 ML (LOVENOX) SYR SC SCH (09:00)
[2020-03-27] MEDS: meTOprolol TARTRATE 50 MG (LOPRESSOR) TAB PO SCH ×2 (09:12→19:50)
[2020-03-27] MEDS: MAGNESIUM 1 GM/100 ML IVPB 100 ML IV SCH ×2 (09:12→09:39)
[2020-03-27] MEDS: lisINopril 20 MG (PRINIVIL) TABLET PO SCH (09:12)
[2020-03-27] MEDS: ALLOPURINOL 100 MG (ZYLOPRIM) TAB PO SCH (09:12)
[2020-03-27] MEDS: RIVAROXABAN 20 MG TABLET (XARELTO) PO SCH (09:14)
[2020-03-27] MEDS ORDERED: NS IV 500 ML 500 ML IV SCH (09:51)
--- NOTE | 2020-03-27 09:53 | Progress Note - Hospitalist ---
Subjective HPI/CC On Admission Date Seen by Provider: Mar 27, 2020 Time Seen by Provider: 09:53 Focused Exam Lactate Level 03/26/20 16:59: Lactic Acid Level 3.58*H 03/26/20 19:33: Lactic Acid Level 1.73 Time of Focused Exam: 18:00 Objective Exam Vital Signs Vital Signs Date Time Temp Pulse Resp B/P (MAP) Pulse Ox O2 Delivery O2 Flow Rate FiO2 03/27/20 13:00 84 28 135/85 93 Nasal Cannula 4.00 03/27/20 11:53 37.2 Capillary Refill : Less Than 3 Seconds General Appearance: No Apparent Distress, Chronically ill HEENT: PERRL/EOMI, Moist Mucous Membranes Neck: Normal Inspection, Supple Respiratory: Lungs Clear, No Accessory Muscle Use, Other (on 4lpm ) Cardiovascular: Regular Rate, Rhythm, No Murmur Gastrointestinal: Normal Bowel Sounds, Non Tender, Soft Extremity: Normal Capillary Refill, No Calf Tenderness, No Pedal Edema Neurologic/Psychiatric: Alert, Oriented x3 Results/Procedures Lab Laboratory Tests 03/26/20 16:32 03/26/20 16:59 03/27/20 03:30 Patient resulted labs reviewed. Assessment/Plan Assessment and Plan Assess & Plan/Chief Complaint Acute Hypoxic Respiraotyr Fialure Clinical Quality Measures DVT/VTE Risk/Contraindication: Risk Factor Score Per Nursin RFS Level Per Nursing on Admit: 4+=Very High ARIANNA HOUSTON MD Mar 27, 2020 09:53
[2020-03-27] MEDS ORDERED: REMDESIVIR INJ 200 MG in NS (IVPB) 210 ML IV ONE (10:00)
--- NOTE | 2020-03-27 10:25 | History & Physical-Hospitalist ---
History of Present Illness HPI/Chief Complaint Pt is a 75yoCM with a PMH of CAD, CHF, HTN, a-fib, NIDDMII who presented to the ER due to shortness of breath. He reports that he was diagnosed with COVID one week ago in the emergency room and had not felt well but was doing okay. He had had intermittent fevers. Yesterday he developed shortness of breath with worse zach hypoxia. EMS was summoned and he was requiring a nonrebreather taking his oxygen saturations. He was hypoxic to the low 80s upon their arrival on room air. He was placed on CPAP in the ER and fluid resuscitated with 3L and admitted to the ICU. This morning he states he is doing well. He was able to be taken off CPAP and is currently on 4lpm. He reports feeling better than yesterday but stil l not well. Source: patient Date Seen 03/27/20 Time Seen by a Provider: 10:20 Attending Physician Lenore Ann MD PCP Ana Aragon DO Referring Physician Date of Admission Mar 26, 2020 at 18:21 Home Medications & Allergies Home Medications Reviewed patient Home Medication Reconciliation performed by pharmacy medication reconciliations information technology technician and/or nursing. Patients Allergies have been reviewed. Allergies Allergies Coded Allergies NKANo Known Allergies (Unverified Allergy, Mild, 09/19/17) Past Kkiomns-Ldkemy-Zqbocr Hx Past Med/Social Hx: Reviewed Nursing Past Med/Soc Hx Patient Social History Alcohol Use: Denies Use Alcohol Beverage of Choice: Beer Recreational Drug Use: No Smoking Status: Former Smoker Former Smoker, Quit: Aug 07, 1987 Type Used: Cigarettes 2nd Hand Smoke Exposure: No Recent Foreign Travel: No Contact w/other who traveled: No Recent Hopitalizations: Yes (ED FOR COVID) Recent Infectious Disease Expo: No Immunizations Up To Date Tetanus Booster (TDap): Less than 5yrs Pediatric: Yes Date of Pneumonia Vaccine: September 15, 2017 Date of Influenza Vaccine: Feb 18, 2017 Seasonal Allergies Seasonal Allergies: Yes (POLLEN ) Past Medical History Surgeries: Abdominal, Cardiac, Gallbladder, Rectal Currently Using CPAP: No Currently Using BIPAP: No Cardiac: Atrial Fibrillation, Chronic Edema/Swelling, Coronary Artery Disease, High Cholesterol, Hypertension Neurological: Dementia Reproductive: No Sexually Transmitted Disease: No HIV/AIDS: No Genitourinary: Benign Prostatic Hyperpl Gastrointestinal: Hiatal Hernia Musculoskeletal: Degenerate Disk Disease, Arthritis, Chronic Back Pain, Gout Endocrine: Diabetes, Non-Insulin dep HEENT: Cataract Loss of Vision: Denies Hearing Impairment: Hard of Hearing Cancer: Skin Did You Recieve Any Treatments: Yes What Type of Treatment Did You: Surgical Intervention Psychosocial: Anxiety, Depression History of Blood Disorders: No Adverse Reaction to Blood Moore: No (N/A) Family History Cardiovascular disease 19 FATHER Hypertension 19 FATHER No Pertinent Family Hx Review of Systems Constitutional: fever, malaise, weakness EENTM: other (loss of taste and smell) Respiratory: cough, short of breath Cardiovascular: No chest pain; Hx of Intervention; No palpitations Gastrointestinal: diarrhea, loss of appetite Genitourinary: no symptoms reported Musculoskeletal: muscle pain, muscle weakness Skin: hx of skin cancer Psychiatric/Neurological: No Symptoms Reported Physical Exam Physical Exam Vital Signs Vital Signs - First Documented 03/26/20 16:08 Temp 38.4 Pulse 115 Resp 37 B/P (MAP) 142/116 (125) Pulse Ox 97 O2 Delivery OxyMask O2 Flow Rate 8.00 Capillary Refill : Less Than 3 Seconds Height, Weight, BMI Height: 5'8.00" Weight: 207lbs. 0.0oz. 93.652030ar; 32.00 BMI Method:Stated General Appearance: No Apparent Distress, Chronically ill HEENT: PERRL/EOMI, Moist Mucous Membranes; No Scleral Icterus (L), No Scleral Icterus (R) Neck: Normal Inspection, Supple Respiratory: Lungs Clear, No Accessory Muscle Use, Other (on 4lpm NC) Cardiovascular: Regular Rate, Rhythm, No Murmur Gastrointestinal: Normal Bowel Sounds, Non Tender, Soft Neurologic/Psychiatric: Alert, Oriented x3 Results Results/Procedures Labs Laboratory Tests 03/26/20 16:32 03/26/20 16:59 03/27/20 03:30 Patient resulted labs reviewed. Imaging: Reviewed Imaging Report Imaging [facility], [place] NAME: LISSET BOBBY [facility] REC#: [id number] PT STATUS: ADM IN : 1945 PHYSICIAN: SOHAIL OREILLY APRN ADMIT DATE: 03/26/20/ICU Signed Date of Exam:03/26/20 CHEST 1 VIEW, AP/PA ONLY INDICATION: Covid person of interest. EXAMINATION: Chest, 03/26/2020. COMPARISON: 03/23/2020. FINDINGS: Heart is unremarkable. Pulmonary vasculature within normal. Lungs and pleural spaces clear. No pneumothorax or effusion. IMPRESSION: No acute process. Dictated by: Dictated on workstation # [id number] Dict: 03/26/201724 Trans: 03/26/201933 [facility] [id number] Interpreted by: LUZMARIA CURRAN MD Electronically signed by: LUZMARIA CURRAN MD 03/26/201933 Assessment/Plan Admission Diagnosis Acute Respiratory Failure from COVID19 Admission Status: Inpatient Order (span 2 midnights) Reason for Inpatient Admission: see below Assessment and Plan Acute Hypoxic Respiratory Failure from COVID19 Currently on 4lpm, off CPAP On day 7 of symptoms per patient Continue decadron Start remdesivir Discussed EUA status of convalescent plasma, patient agreeable Already on anticoagulation with home Xarelto IS MAT Lactic acidosis likely due to hypoxia, does not appear to have sepsis Will repeat procal HTN A-fib HLD No acute needs, continue home meds NIDDMII SSI Anticipate high blood sugars with decadron Dementia Continue home risperdal and donepezil DVt ppx: Home xarelto Diagnosis/Problems Diagnosis/Problems (1) Acute respiratory failure with hypoxemia Status: Acute (2) 2019 novel coronavirus disease (COVID-19) Status: Acute (3) Essential (primary) hypertension Status: Chronic (4) Dementia Status: Chronic Qualifiers: Dementia type: unspecified type Dementia behavioral disturbance: without behavioral disturbance Qualified Codes: F03.90 - Unspecified dementia without behavioral disturbance (5) Non-insulin dependent type 2 diabetes mellitus Status: Chronic (6) Hyperlipidemia Status: Chronic Qualifiers: Hyperlipidemia type: unspecified Qualified Codes: E78.5 - Hyperlipidemia, unspecified (7) Atrial fibrillation Status: Chronic Qualifiers: Atrial fibrillation type: paroxysmal Qualified Codes: I48.0 - Paroxysmal atrial fibrillation (8) Coronary artery disease Status: Acute Clinical Quality Measures DVT/VTE Risk/Contraindication: Risk Factor Score Per Nursin RFS Level Per Nursing on Admit: 4+=Very High Copy Copies To 1: ANA ARAGON KATELYN M MD Mar 27, 2020 10:25
[2020-03-27] MEDS ORDERED: LABETALOL HCL 20 MG/4 ML VIAL IV ONE (10:45)
[2020-03-27 15:39] VITALS: BP 132/102
[2020-03-27] MEDS: risperiDONE 1 MG (RisperDAL) TAB PO SCH (19:49)
[2020-03-27] MEDS: DONEPEZIL 10 MG (ARICEPT) TAB PO SCH (19:49)
--- NOTE | 2020-03-27 20:45 | NUR ---
RN ASSUMING CARE OF PT FROM [facility], PT TRANSPORTED VIA BED BY UX VISUAL DESIGNER AND STAFF. PT BELONGINGS BROUGHT WITH PT. PT ON 3L NC NOT HAVING ANY DISTRESS. PT ORIENTED TO STAFF AND NEW ROOM OF 430 GIVEN CALL LIGHT.
[2020-03-28 00:22] VITALS: BP 152/82
[2020-03-28] MEDS: RT-ALBUTEROL INHALER HFA (VENTOLIN HFA) 18 GM IH SCH ×4 (01:40→21:42)
[2020-03-28 04:59] VITALS: BP 162/84
[2020-03-28] MEDS: inSUlin ASPART (NovoLOG) 1 UNIT/0.01 ML (CHARGE PER UNIT) SC SCH ×4 (05:31→20:59)
[2020-03-28 06:37] LABS: BASOPHILS % (AUTO) 0 % (0-10); EOSINOPHILS % (AUTO) 0 % (0-10); HEMATOCRIT 42 % (40-54); MEAN CORPUSCULAR VOLUME 92 fL (80-99)
[2020-03-28 06:39] LABS: LYMPHOCYTES # (AUTO) 0.6 10^3/uL (1.0-4.0); LYMPHOCYTES % (AUTO) 11 % (12-44); MEAN CORPUSCULAR HEMOGLOBIN 31 pg (25-34); MEAN CORPUSCULAR HGB CONC 34 g/dL (32-36); MEAN PLATELET VOLUME 10.2 fL (9.0-12.2); MONOCYTES # (AUTO) 0.4 10^3/uL (0.0-1.0); MONOCYTES % (AUTO) 7 % (0-12); NEUTROPHILS # (AUTO) 4.6 10^3/uL (1.8-7.8); NEUTROPHILS % (AUTO) 82 % (42-75); PLATELET COUNT 123 10^3/uL (130-400); WHITE BLOOD COUNT 5.6 10^3/uL (4.3-11.0)
[2020-03-28 06:46] LABS: ALBUMIN 3.2 GM/DL (3.2-4.5); CHLORIDE 101 MMOL/L (98-107); POTASSIUM 3.8 MMOL/L (3.6-5.0); SODIUM 137 MMOL/L (135-145)
[2020-03-28 06:47] LABS: CALCIUM 8.1 MG/DL (8.5-10.1)
[2020-03-28 06:48] LABS: GLUCOSE 156 MG/DL (70-105)
[2020-03-28 06:49] LABS: TOTAL PROTEIN 6.3 GM/DL (6.4-8.2)
[2020-03-28 06:50] LABS: CARBON DIOXIDE 25 MMOL/L (21-32)
[2020-03-28 06:52] LABS: ALKALINE PHOSPHATASE 57 U/L (40-136); CREATININE SERUM 0.73 MG/DL (0.60-1.30); GFR ESTIMATED > 60
[2020-03-28 06:53] LABS: BUN/CREATININE RATIO 21
[2020-03-28 06:55] LABS: ALANINE AMINOTRANSFERASE 25 U/L (0-55)
[2020-03-28 08:00] VITALS: BP 154/95
[2020-03-28] MEDS: ALLOPURINOL 100 MG (ZYLOPRIM) TAB PO SCH (08:38)
[2020-03-28] MEDS: lisINopril 20 MG (PRINIVIL) TABLET PO SCH (08:38)
[2020-03-28] MEDS: RIVAROXABAN 20 MG TABLET (XARELTO) PO SCH (08:39)
[2020-03-28] MEDS: meTOprolol TARTRATE 50 MG (LOPRESSOR) TAB PO SCH ×2 (08:39→19:45)
[2020-03-28] MEDS: REMDESIVIR INJ 100 MG in NS (IVPB) 230 ML IV SCH (10:50)
[2020-03-28 12:00] VITALS: BP 156/99
--- NOTE | 2020-03-28 13:17 | Progress Note - Hospitalist ---
Subjective HPI/CC On Admission Date Seen by Provider: Mar 28, 2020 Time Seen by Provider: 10:30 Pt is a 75yoCM with a PMH of CAD, CHF, HTN, a-fib, NIDDMII who presented to the ER due to shortness of breath. He reports that he was diagnosed with COVID one week ago in the emergency room and had not felt well but was doing okay. He had had intermittent fevers. Yesterday he developed shortness of breath with worsening hypoxia. EMS was summoned and he was requiring a nonrebreather taking his oxygen saturations. He was hypoxic to the low 80s upon their arrival on room air. He was placed on CPAP in the ER and fluid resuscitated with 3L and admitted to the ICU. This morning he states he is doing well. He was able to be taken off CPAP and is currently on 4lpm. He reports feeling better than yesterday but still not well. Subjective/Events-last exam He has no complaints. He denies shrotness of breath. He is having a bit of a cough. He is feeling weak. Focused Exam Lactate Level 03/26/20 16:59: Lactic Acid Level 3.58*H 03/26/20 19:33: Lactic Acid Level 1.73 Time of Focused Exam: 18:00 Objective Exam Vital Signs Vital Signs Date Time Temp Pulse Resp B/P (MAP) Pulse Ox O2 Delivery O2 Flow Rate FiO2 03/28/20 12:00 36.2 78 18 156/99 (118) 95 Nasal Cannula 3.00 Capillary Refill : Less Than 3 Seconds General Appearance: No Apparent Distress, Obese Respiratory: Lungs Clear, Normal Breath Sounds, No Respiratory Distress Cardiovascular: Regular Rate, Rhythm, No Edema, No Murmur Gastrointestinal: Normal Bowel Sounds, Non Tender, Soft Extremity: Normal Inspection, Non Tender, No Pedal Edema Neurologic/Psychiatric: Alert, Oriented x3, No Motor/Sensory Deficits, Normal Mood/Affect Skin: Normal Color, Warm/Dry Results/Procedures Lab Laboratory Tests 03/28/20 06:30 Patient resulted labs reviewed. Imaging: Reviewed Imaging Report Assessment/Plan Assessment and Plan Assess & Plan/Chief Complaint Acute respiratory failure due to COVID-19 Pneumonia Decadron Remdesivir s/p 1 unit convalescent plasma Procalcitonin 0.65 Begin Rocephin and Azithromycin HTN A-fib HLD Continue home meds T2DM Steroid-induced hyperglycemia SSI Dementia Continue home risperdal and donepezil Obesity Clinically significant, no acute management needs DVT ppx: already receiving therapeutic anticoagulation Diagnosis/Problems Diagnosis/Problems (1) Acute respiratory failure due to COVID-19 Status: Acute (2) PNA (pneumonia) Status: Acute (3) T2DM (type 2 diabetes mellitus) Status: Chronic Qualifiers: Diabetes mellitus fdc insulin use: without fdc use (4) Steroid-induced hyperglycemia Status: Acute (5) HTN (hypertension) Status: Chronic Qualifiers: Hypertension type: essential hypertension Qualified Codes: I10 - Essential (primary) hypertension (6) A-fib Status: Chronic Qualifiers: Atrial fibrillation type: paroxysmal Qualified Codes: I48.0 - Paroxysmal a trial fibrillation (7) HLD (hyperlipidemia) Status: Chronic (8) Obesity Status: Chronic Qualifiers: Body mass index: BMI 32.0-32.9 (9) Dementia Status: Chronic Qualifiers: Dementia type: unspecified type Dementia behavioral disturbance: without behavioral disturbance Qualified Codes: F03.90 - Unspecified dementia without behavioral disturbance Clinical Quality Measures DVT/VTE Risk/Contraindication: Risk Factor Score Per Nursin RFS Level Per Nursing on Admit: 4+=Very High KUSUM JACOB MD Mar 28, 2020 13:17
[2020-03-28] MEDS ORDERED: AZITHROMYCIN 250 MG TAB (ZITHROMAX) PO NR (13:30)
--- NOTE | 2020-03-28 14:09 | NUR ---
CM/SS: Telephone call from Brittany De La Torre - neighbor of pt [phone] - she is concerned about pt and his . Specifically his Dolores as she reports being sick, and weak and is at home. Neighbor wants to have someone go to the home to assist the spouse of pt. This worker explains that we are unable to go to the home at this time. She is encouraged to have Dolores to call her doctor and see what they say. She is also advised that if she needs to call EMS to do so. Brittany ask this worker to call Dolores - spouse of pt. This worker will follow up.
[2020-03-28] MEDS: cefTRIAXone FOR IV USE 2,000 MG in WATER (STERILE) FOR INJECTION 20 ML IV SCH (14:11)
--- NOTE | 2020-03-28 14:15 | NUR ---
CM/SS: Telephone call to Dolores Car - [phone] - she reports she is very weak and that she will have a tele visit with Dr. Aragon this afternoon. She is encouraged to call to set up an earlier time. If she can not wait to call the doctors office and request an earlier time, or she will need to call EMS and be evaluated at the hospital. She will try and call the doctors office. She expressed that she feels short of breath but her O2 stats were ok when she and her came to the ER. She reports he was admitted she was dismissed to home. She is encouraged to get in touch with doctor or call EMS based on her change in status. She verbalized understanding.
[2020-03-28] MEDS ORDERED: CETI10TA17 PO (14:28)
[2020-03-28] MEDS ORDERED: RIVA20TA PO (14:28)
[2020-03-28] MEDS ORDERED: FURO20TA4 PO (14:28)
--- NOTE | 2020-03-28 15:20 | NUR ---
I SPOKE WITH THE PATIENT, WENT THROUGH THE EXTERNAL MED HISTORY, AND A GOT MED LIST SENT OVER FROM DR. RAMESH AND DR. CAMPOS. PATIENT STATES THAT HE TAKES XARELTO 20MG AND GETS IT THROUGH DR. CAMPOS'S OFFICE. XARELTO 20MG WAS ON BOTH MED LISTS THAT I HAD FAXED OVER BUT I WAS UNABLE TO GET IN TOUGH WITH MR. CAMPOS'S OFFICE AGAIN TO VERIFY THAT HE GETS IT THROUGH THEM. I DID PUT XARELTO 20MG ON THIS MED REC. OTC: ZYRTEC TYLENOL MAGNESIUM
[2020-03-28 15:43] VITALS: BP 168/84
[2020-03-28 19:20] VITALS: BP 159/78
[2020-03-28] MEDS: risperiDONE 1 MG (RisperDAL) TAB PO SCH (19:45)
[2020-03-28] MEDS: DONEPEZIL 10 MG (ARICEPT) TAB PO SCH (19:45)
[2020-03-28] MEDS: ACETAMINOPHEN 325 MG TABLET PO PRN (19:46)
[2020-03-29 00:43] VITALS: BP 154/85
[2020-03-29] MEDS: RT-ALBUTEROL INHALER HFA (VENTOLIN HFA) 18 GM IH SCH ×4 (02:25→18:34)
[2020-03-29 04:55] VITALS: BP 174/91
[2020-03-29] MEDS: inSUlin ASPART (NovoLOG) 1 UNIT/0.01 ML (CHARGE PER UNIT) SC SCH ×4 (06:08→20:42)
[2020-03-29 08:00] VITALS: BP 191/91
[2020-03-29] MEDS: ALLOPURINOL 100 MG (ZYLOPRIM) TAB PO SCH (08:59)
[2020-03-29] MEDS: lisINopril 20 MG (PRINIVIL) TABLET PO SCH (08:59)
[2020-03-29] MEDS: RIVAROXABAN 20 MG TABLET (XARELTO) PO SCH (09:00)
[2020-03-29] MEDS: meTOprolol TARTRATE 50 MG (LOPRESSOR) TAB PO SCH ×2 (09:00→20:42)
[2020-03-29] MEDS: AZITHROMYCIN 250 MG TAB (ZITHROMAX) PO SCH (09:02)
[2020-03-29] MEDS: REMDESIVIR INJ 100 MG in NS (IVPB) 230 ML IV SCH (09:04)
[2020-03-29 12:00] VITALS: BP 164/97
[2020-03-29] MEDS: cefTRIAXone FOR IV USE 2,000 MG in WATER (STERILE) FOR INJECTION 20 ML IV SCH (13:36)
--- NOTE | 2020-03-29 14:01 | NUR ---
CM/SS: Telephone Call to pt's - Dolores Car - [phone] - She reports she is feeling a little better today. She reports that she did talk with the doctor on yesterday and that she is encouraged to drink plenty of water, take Tylenol, and ibuprofen if needed for pain and fever. She reports she does feel better and was able to eat some fruit. She did have her neighbor bring her some items and put it on her porch. She is encouraged to call the physician back if she gets to feeling worst. She verbalizes understanding, and thanks this worker for calling and checking.
--- NOTE | 2020-03-29 15:40 | Progress Note - Hospitalist ---
Subjective HPI/CC On Admission Date Seen by Provider: Mar 29, 2020 Time Seen by Provider: 11:15 Pt is a 75yoCM with a PMH of CAD, CHF, HTN, a-fib, NIDDMII who presented to the ER due to shortness of breath. He reports that he was diagnosed with COVID one week ago in the emergency room and had not felt well but was doing okay. He had had intermittent fevers. Yesterday he developed shortness of breath with worsening hypoxia. EMS was summoned and he was requiring a nonrebreather taking his oxygen saturations. He was hypoxic to the low 80s upon their arrival on room air. He was placed on CPAP in the ER and fluid resuscitated with 3L and admitted to the ICU. This morning he states he is doing well. He was able to be taken off CPAP and is currently on 4lpm. He reports feeling better than yesterday but still not well. Subjective/Events-last exam He still feels short of breath. He has been getting up only with nursing assista nce. He denies fevers. Focused Exam Lactate Level 03/26/20 16:59: Lactic Acid Level 3.58*H 03/26/20 19:33: Lactic Acid Level 1.73 Time of Focused Exam: 18:00 Objective Exam Vital Signs Vital Signs Date Time Temp Pulse Resp B/P (MAP) Pulse Ox O2 Delivery O2 Flow Rate FiO2 03/29/20 15:27 96 Nasal Cannula 3.00 03/29/20 12:00 35.9 66 18 164/97 (119) Capillary Refill : Less Than 3 Seconds General Appearance: No Apparent Distress, Obese Respiratory: Lungs Clear, Normal Breath Sounds, No Respiratory Distress Cardiovascular: Regular Rate, Rhythm, No Edema, No Murmur Gastrointestinal: Normal Bowel Sounds, Non Tender, Soft Extremity: Normal Inspection, Non Tender, No Pedal Edema Neurologic/Psychiatric: Alert, Oriented x3, No Motor/Sensory Deficits, Normal Mood/Affect Skin: Normal Color, Warm/Dry Results/Procedures Lab Patient resulted labs reviewed. Imaging: Reviewed Imaging Report Assessment/Plan Assessment and Plan Assess & Plan/Chief Complaint Acute respiratory failure due to COVID-19 Pneumonia Decadron Remdesivir s/p 1 unit convalescent plasma Continue Rocephin and Azithromycin HTN A-fib HLD Continue home meds T2DM Steroid-induced hyperglycemia SSI Dementia Continue home risperdal and donepezil Obesity Clinically significant, no acute management needs Weakness PT/OT DVT ppx: already receiving therapeutic anticoagulation Diagnosis/Problems Diagnosis/Problems (1) Acute respiratory failure due to COVID-19 Status: Acute (2) PNA (pneumonia) Status: Acute (3) T2DM (type 2 diabetes mellitus) Status: Chronic Qualifiers: Diabetes mellitus chcf insulin use: without chcf use (4) Steroid-induced hyperglycemia Status: Acute (5) HTN (hypertension) Status: Chronic Qualifiers: Hypertension type: essential hypertension Qualified Codes: I10 - Essential (primary) hypertension (6) A-fib Status: Chronic Qualifiers: Atrial fibrillation type: paroxysmal Qualified Codes: I48.0 - Paroxysmal atrial fibrillation (7) HLD (hyperlipidemia) Status: Chronic (8) Obesity Status: Chronic Qualifiers: Body mass index: BMI 32.0-32.9 (9) Dementia Status: Chronic Qualifiers: Dementia type: unspecified type Dementia behavioral disturbance: without behavioral disturbance Qualified Codes: F03.90 - Unspecified dementia without behavioral disturbance Clinical Quality Measures DVT/VTE Risk/Contraindication: Risk Factor Score Per Nursin RFS Level Per Nursing on Admit: 4+=Very High KUSUM JACOB MD Mar 29, 2020 15:40
--- NOTE | 2020-03-29 15:45 | Physical Therapy Progress Note ---
Therapy Progress Note Consulted with nursing and patient had just be up with nursing staff and is fatigued. PT to evaluate patient in a.LAW Noel PT Mar 29, 2020 15:45
[2020-03-29 16:00] VITALS: BP 175/84
[2020-03-29 16:11] VITALS: BP 164/97
--- NOTE | 2020-03-29 19:14 | Physician Query Clarification ---
"Physician Query-General Query to Physician: The medical record reflects the following clinical scenario: History/Risk factors: Covid 19, PNA, Clinical Findings: Admission: WBC , HR 115, RR 37, T 38.4, 80% SaO2 on 6L, LA 3.58 Treatment: 3L LR in ER, IV Ceftriaxone, IV Azithromycin, ICU, Remdesivir Question: Do you agree with the impression of Severe Sepsis per Dr Cody Barragan? If you agree, please document in Progress Notes or Discharge Summary. 1. Yes; will document Severe Sepsis due to Covid 19/pneumonia present on admission in the Progress Notes 2. No; will continue to document Covid 19/pneumonia in the Progress Notes 3. Other; will document explanation of clinical findings 4. Clinically undetermined; no explanation for clinical findings Please remember a lack of response to the above will prompt a phone page by CDI/coding staff. In responding to this query, please exercise your independent professional judgment. The purpose of this communication is to more accurately reflect the complexity of your patients condition. The fact that a question is asked does not imply that any particular answer is desired or expected. Thank you for timely response to this clarification. Lakeshia Lozano, MSN, RN RN Specialist-Clinical Doc Improvement CD -Health Info Mgmt Operations [address] [facility] t: [phone] | f: [phone] If you are unable to reach me at my extension, I may be working from home. Please contact me at [phone] PHYSICIAN RESPONSE: Based on the clinical findings in the record, please respond to the query above on this document as an addendum. Physician Response: Physician Response 1 If you have questions please contact: Pulp Grinder And Blender: Ext: Thank you for your time and cooperation. Clinical Weigher And Charger/Pulp Grinder And Blender This is a permanent part of the medical record LAKESHIA LOZANO Mar 29, 2020 19:14 KUSUM JACOB MD Apr 16, 2020 20:20"
[2020-03-29] MEDS: risperiDONE 1 MG (RisperDAL) TAB PO SCH (20:41)
[2020-03-29] MEDS: DONEPEZIL 10 MG (ARICEPT) TAB PO SCH (20:42)
[2020-03-30 00:21] VITALS: BP 175/78
[2020-03-30 03:45] VITALS: BP 172/97
[2020-03-30] MEDS: RT-ALBUTEROL INHALER HFA (VENTOLIN HFA) 18 GM IH SCH ×4 (04:38→21:34)
[2020-03-30] MEDS: inSUlin ASPART (NovoLOG) 1 UNIT/0.01 ML (CHARGE PER UNIT) SC SCH ×4 (06:16→21:29)
[2020-03-30 08:00] VITALS: BP 191/102
[2020-03-30 08:46] LABS: ALBUMIN 3.3 GM/DL (3.2-4.5); CHLORIDE 103 MMOL/L (98-107); POTASSIUM 3.8 MMOL/L (3.6-5.0); SODIUM 139 MMOL/L (135-145)
[2020-03-30 08:47] LABS: CALCIUM 8.4 MG/DL (8.5-10.1)
[2020-03-30 08:48] LABS: GLUCOSE 212 MG/DL (70-105)
[2020-03-30 08:49] LABS: TOTAL PROTEIN 6.5 GM/DL (6.4-8.2)
[2020-03-30 08:50] LABS: BILIRUBIN,TOTAL 1.1 MG/DL (0.1-1.0); CARBON DIOXIDE 26 MMOL/L (21-32)
[2020-03-30 08:52] LABS: ALKALINE PHOSPHATASE 65 U/L (40-136); CREATININE SERUM 0.71 MG/DL (0.60-1.30); GFR ESTIMATED > 60
[2020-03-30 08:53] LABS: BUN/CREATININE RATIO 24
[2020-03-30 08:55] LABS: ALANINE AMINOTRANSFERASE 33 U/L (0-55)
[2020-03-30] MEDS: RIVAROXABAN 20 MG TABLET (XARELTO) PO SCH (09:01)
[2020-03-30] MEDS: meTOprolol TARTRATE 50 MG (LOPRESSOR) TAB PO SCH ×2 (09:02→21:28)
[2020-03-30] MEDS: lisINopril 20 MG (PRINIVIL) TABLET PO SCH (09:02)
[2020-03-30] MEDS: AZITHROMYCIN 250 MG TAB (ZITHROMAX) PO SCH (09:02)
[2020-03-30] MEDS: ALLOPURINOL 100 MG (ZYLOPRIM) TAB PO SCH (09:02)
--- NOTE | 2020-03-30 09:23 | Physical Therapy Evaluation ---
PT Evaluation-General Medical Diagnosis Admission Date Mar 26, 2020 at 18:21 Medical Diagnosis: covid 19, SOB Onset Date: Mar 26, 2020 Therapy Diagnosis Therapy Diagnosis: slight balance impairment Height/Weight Height (Feet): 5 Height (Inches): 8.00 Weight (Pounds): 207 Weight (Ounces): 0.0 Precautions Precautions/Isolations: Contact Isolation, Droplet Isolation Referral Physician: Roberto Reason for Referral: Evaluation/Treatment Medical History Additional Medical History Past Medical History Surgeries: Abdominal, Cardiac, Gallbladder, Rectal Currently Using CPAP: No Currently Using BIPAP: No Cardiac: Atrial Fibrillation, Chronic Edema/Swelling, Coronary Artery Disease, High Cholesterol, Hypertension Neurological: Dementia Reproductive: No Sexually Transmitted Disease: No HIV/AIDS: No Genitourinary: Benign Prostatic Hyperpl Gastrointestinal: Hiatal Hernia Musculoskeletal: Degenerate Disk Disease, Arthritis, Chronic Back Pain, Gout Endocrine: Diabetes, Non-Insulin dep HEENT: Cataract Loss of Vision: Denies Hearing Impairment: Hard of Hearing Cancer: Skin Did You Recieve Any Treatments: Yes What Type of Treatment Did You: Surgical Intervention Psychosocial: Anxiety, Depression Reviewed History: Yes Social History Home: Single Level Current Living Status: Spouse Entry Into Home: Stairs With Railing PT Steps Into Home: 3 Prior Prior Level of Function SCALE: Activities may be completed with or without assistive devices. 4-Dpmxuvcszw-bjpegak completes the activity by him/herself with no assistance from a helper. 5-Set-up or Clean-up Assistance-helper sets up or cleans up; patient completes activity. Fountain assists only prior to or following the activity. 4-Supervision or Touching Assistance-helper provides verbal cues and/or touching/steadying and/or contact guard assistance as patient completes activity. Assistance may be provided throughout the activity or intermittently. 3-Partial/Moderate Assistance-helper does LESS THAN HALF the effort. Fountain lifts, holds or supports trunk or limbs, but provides less than half the effort. 2-Substantial/Maximal Assistance-helper does MORE THAN HALF the effort. Fountain lifts or holds trunk or limbs and provides more than half the effort. 1-Qtnbksxpo-wshtss does ALL the effort. Patient does none of the effort to complete the activity. Or, the assistance of 2 or more helpers is required for the patient to complete the activity. If activity was not attempted, code reason: 7-Patient Refused. 9-Not Applicable-not attempted and the patient did not perform the activity before the current illness, exacerbation or injury. 10-Not Attempted due to Environmental Limitations-(lack of equipment, weather restraints, etc.). 88-Not Attempted due to Medical Conditions or Safety Concerns. Bed Mobility: 3 Transfers (B,C,W/C): 3 Gait: 3 Stairs: 3 Indoor Mobility (Ambulation): Independent Stairs: Independent PT Evaluation-Current Subjective Patient in recliner pre tx, agrees to PT, has no complaints of pain. Pt/Family Goals "to get better and go home" Objective Patient Orientation: Person, Place, Situation Attachments: Oxygen, Babb Catheter ROM/Strength ROM Lower Extremities WNL Strength Lower Extremities 5/5 gross BLE Sensory Hearing: Functional Sensation Right Lower Extremit: Intact Sensation Left Lower Extremity: Intact Transfers Sit to Stand (QC): 6 Chair/Enl-qf-Oljay Xfer(QC): 6 Gait Does the Patient Walk?: Yes Mode of Locomotion: Walk Anticipated Mode of Locomotion: Walk Walk 10 feet (QC): 6 Distance: 20' Gait Assistive Device: None Balance Sitting Static: Normal Sitting Dynamic: Normal Standing Static: Normal Standing Dynamic: Normal Treatment Patient stood up and ambulated back and forth as far as his O2 line would allow him, he ambulated a total of about 20', his mobility was normal, performed 10 mini-squats and 10 heel raises without holding onto anything, has some unsteadiness with heel raises but that is not unusual for his age. Patient had no SOB with activity, states he has no trouble getting into and out of bed. Assessment/Needs Patient has normal functional mobility. Will DC patient for services at this time. Educated patient to perform ankle pumps and LAQ on his own in his room. Rehab Potential: Good PT Plan Problem List Problem List: Balance Treatment/Plan Treatment Plan: Discontinue PT Treatment Duration: Mar 30, 2020 Frequency: Patient and/or Family Agrees t: Yes Safety Risks/Education Patient Education: Gait Training, Transfer Techniques, Correct Positioning, Safety Issues Teaching Recipient: Patient Teaching Methods: Demonstration, Discussion Response to Teaching: Verbalize Understanding Discharge Recommendations Plan DC Therapy Discharge Recommendati: Home & Family Time/GCodes Time In: 0900 Time Out: 0914 Total Billed Treatment Time: 14 Total Billed Treatment 1 visit EVM 14' ANEUDY RAPHAEL PT Mar 30, 2020 09:23
[2020-03-30] MEDS: REMDESIVIR INJ 100 MG in NS (IVPB) 230 ML IV SCH (09:35)
--- NOTE | 2020-03-30 11:29 | Occupational Therapy Eval ---
OT Evaluation-General/PLF Medical Diagnosis Admission Date Mar 26, 2020 at 18:21 Medical Diagnosis: covid 19, SOB Onset Date: Mar 26, 2020 Therapy Diagnosis Therapy Diagnosis: no deficits noted Height/Weight Height (Feet): 5 Height (Inches): 8.00 Weight (Pounds): 207 Weight (Ounces): 0.0 Precautions Precautions/Isolations: Contact Isolation, Droplet Isolation Referral Physician: Roberto Referral Reason: Evaluation/Treatment Social History Home: Single Level Current Living Status: Spouse Entry Into Home: Stairs With Railing Steps Into Home: 3 ADL-Prior Level of Function SCALE: Activities may be completed with or without assistive devices. 9-Oevhdjgqlj-hzqdnlw completes the activity by him/herself with no assistance from a helper. 5-Set-up or Clean-up Assistance-helper sets up or cleans up; patient completes activity. [place] assists only prior to or following the activity. 4-Supervision or Touching Assistance-helper provides verbal cues and/or touching/steadying and/or contact guard assistance as patient completes activity. Assistance may be provided throughout the activity or intermittently. 3-Partial/Moderate Assistance-helper does LESS THAN HALF the effort. [place] lifts, holds or supports trunk or limbs, but provides less than half the effort. 2-Substantial/Maximal Assistance-helper does MORE THAN HALF the effort. [place] lifts or holds trunk or limbs and provides more than half the effort. 0-Nhfhbhxql-equbsx does ALL the effort. Patient does none of the effort to complete the activity. Or, the assistance of 2 or more helpers is required for the patient to complete the activity. If activity was not attempted, code reason: 7-Patient Refused. 9-Not Applicable-not attempted and the patient did not perform the activity before the current illness, exacerbation or injury. 10-Not Attempted due to Environmental Limitations-(lack of equipment, weather restraints, etc.). 88-Not Attempted due to Medical Conditions or Safety Concerns. ADL PLOF Comments Pt indicates he was independent with all ADLs at PLOF, no AE. Self Care: Independent Functional Cognition: Independent OT Current Status Subjective Pt laying in bed on phone, agreeable to OT tx. Pt does not verbalize any pain. Mental Status/Objective Patient Orientation: Person, Place, Time, Situation Attachments: IV Current Upper Extremity ROM WFL, BUE shoulder flexion to approx 120 degrees Upper Extremity Sensation WFL ADL-Treatment Eating (QC): 6 On/Off Footwear (QC): 6 Toileting Hygiene (QC): 6 Other Treatments Pt laying in bed, agreeable to OT tx. OT educated pt on purpose and benefits of OT, he verbalized understanding. Pt then provided information about PLOF and home set up, and participated in UE screen. Pt transferred supine to sit EOB independently, then independently doffed/don socks. Pt returned to supine witho ut difficulty. Pt and nursing staff indicate pt has been up to the commode and is able to complete hygiene without assistance. Nursing staff also indicate pt has been up in room without assistance. Pt indicates he would not like further OT services, as he feels like he is at his PLOF and independent with self care. Post OT tx, pt laying in bed, call light in reach and all needs met. Education OT Patient Education: Correct positioning, Modified ADL techniques, Progress toward Goal/Update tx plan, Purpose of tx/functional activities, Rehab process Teaching Recipient: Patient Teaching Methods: Discussion Response to Teaching: Verbalize Understanding OT Alf Goals Clinical Resource Director Goals 1=Demonstrate adherence to instructed precautions during ADL tasks. 2=Patient will verbalize/demonstrate understanding of assistive devices/modifications for ADL. 3=Patient will improve strength/tolerance for activity to enable patient to perform ADL's. OT Education/Plan Problem List/Assessment Assessment: No Skilled OT Needs ID'd Pt independent throughout session, pt indicates he is at his PLOF and does not want further OT services. Discharge Recommendations Plan/Recommendations: Discharge/Goals Met Treatment Plan/Plan of Care Patient would benefit from OT for education, treatment and training to promote independence in ADL's, mobility, safety and/or upper extremity function for ADL's. Plan of Care: ADL Retraining Treatment Duration: Mar 30, 2020 Frequency: 1 time per week (eval only) Rehab Potential: Good Time/GCodes Start Time: 11:25 Stop Time: 11:40 Total Time Billed (hr/min): 15 Billed Treatment Time 1, EVGAEL CHAPA OT Mar 30, 2020 11:29
[2020-03-30] MEDS ORDERED: lisINopril 40 MG (PRINIVIL) TABLET PO NR (12:45)
[2020-03-30] MEDS ORDERED: amLODIPine 5 MG (NORVASC) TAB PO NR (12:45)
[2020-03-30] MEDS ORDERED: hydrALAZINE (APRESOLINE) 25 MG TAB PO PRN (12:45)
[2020-03-30] MEDS: cefTRIAXone FOR IV USE 2,000 MG in WATER (STERILE) FOR INJECTION 20 ML IV SCH (13:46)
--- NOTE | 2020-03-30 14:18 | Progress Note - Hospitalist ---
Subjective HPI/CC On Admission Date Seen by Provider: Mar 30, 2020 Time Seen by Provider: 10:35 Pt is a 75yoCM with a PMH of CAD, CHF, HTN, a-fib, NIDDMII who presented to the ER due to shortness of breath. He reports that he was diagnosed with COVID one week ago in the emergency room and had not felt well but was doing okay. He had had intermittent fevers. Yesterday he developed shortness of breath with worsening hypoxia. EMS was summoned and he was requiring a nonrebreather taking his oxygen saturations. He was hypoxic to the low 80s upon their arrival on room air. He was placed on CPAP in the ER and fluid resuscitated with 3L and admitted to the ICU. This morning he states he is doing well. He was able to be taken off CPAP and is currently on 4lpm. He reports feeling better than yesterday but still not well. Subjective/Events-last exam he is feeling better. He has been up and working with physical therapy. He has been able to eat and drink. Focused Exam Time of Focused Exam: 18:00 Objective Exam Vital Signs Vital Signs Date Time Temp Pulse Resp B/P (MAP) Pulse Ox O2 Delivery O2 Flow Rate FiO2 03/30/20 10:26 95 Nasal Cannula 3.00 03/30/20 08:00 35.9 63 20 191/102 (131) Capillary Refill : Less Than 3 Seconds General Appearance: No Apparent Distress, Obese Respiratory: Lungs Clear, Normal Breath Sounds, No Respiratory Distress Cardiovascular: Regular Rate, Rhythm, No Edema, No Murmur Gastrointestinal: Normal Bowel Sounds, Non Tender, Soft Extremity: Normal Inspection, Non Tender, No Pedal Edema Neurologic/Psychiatric: Alert, Oriented x3, No Motor/Sensory Deficits, Normal Mood/Affect Skin: Normal Color, Warm/Dry Results/Procedures Lab Laboratory Tests 03/30/20 08:26 Patient resulted labs reviewed. Imaging: Reviewed Imaging Report Assessment/Plan Assessment and Plan Assess & Plan/Chief Complaint Acute respiratory failure due to COVID-19 Pneumonia Decadron Remdesivir day 4/5 s/p 1 unit convalescent plasma Continue Rocephin and Azithromycin Obtain home oxygen evaluation HTN A-fib HLD Continue home meds T2DM Steroid-induced hyperglycemia SSI Dementia Continue home risperdal and donepezil Obesity Clinically significant, no acute management needs Weakness PT/OT DVT ppx: already receiving therapeutic anticoagulation Diagnosis/Problems Diagnosis/Problems (1) Acute respiratory failure due to COVID-19 Status: Acute (2) PNA (pneumonia) Status: Acute (3) T2DM (type 2 diabetes mellitus) Status: Chronic Qualifiers: Diabetes mellitus halfway insulin use: without ad terminal makeup operator use (4) Steroid-induced hyperglycemia Status: Acute (5) HTN (hypertension) Status: Chronic Qualifiers: Hypertension type: essential hypertension Qualified Codes: I10 - Essential (primary) hypertension (6) A-fib Status: Chronic Qualifiers: Atrial fibrillation type: paroxysmal Qualified Codes: I48.0 - Paroxysmal atrial fibrillation (7) HLD (hyperlipidemia) Status: Chronic (8) Obesity Status: Chronic Qualifiers: Body mass index: BMI 32.0-32.9 (9) Dementia Status: Chronic Qualifiers: Dementia type: unspecified type Dementia behavioral disturbance: without behavioral disturbance Qualified Codes: F03.90 - Unspecified dementia without behavioral disturbance Clinical Quality Measures DVT/VTE Risk/Contraindication: Risk Factor Score Per Nursin RFS Level Per Nursing on Admit: 4+=Very High KUSUM JACOB MD Mar 30, 2020 14:18
--- NOTE | 2020-03-30 15:19 | NUR ---
PT DOES NOT NEED O2. PT WAS PLACED ON 02 FOR 30 MINUTES. PT WAS EXERCISED AND 02 NEVER WENT BELOW 89%. Addendum: 03/30/20 at 1520 by JAMEE KHALIL RT Amended: Links added.
--- NOTE | 2020-03-30 16:35 | NUR ---
CM/SS: Telephone call to pt's room [phone] to coordinate discharge Plan: Pt will be discharged on tomorrow with no identified needs. Pt DID NOT quality for home oxygen Summary: Pt does not have a way home. He reports he needs to get home so he can care for his who also has COVID. Pt reports he does not have any friends and that he can think of one leah he can call, but he is unsure he can transport him due to to his COVID status. Telephone call to [facility] [employer] - Oziel Grey - [phone] - Pop - he indicates he can transport COVID pts - the rate for the transport will be $130.00. He can invoice us and they can transport on the holiday. Telephone Call to O And M Supervisor - Nathalie Florez - requesting approval for the transportation due to no other options and pt being COVID positive. Nathalie gives approval for the transport. Telephone Call back to [facility] [employer] - [phone] - they are able to do the transport tomorrow. They can pick and shovel worker pt at 9:00am. They are advised of the entrance and given the nurses cell phone number. THERON David and THERON Cuello are notified of time of pick and shovel worker.
[2020-03-30 16:36] VITALS: BP 183/95
--- NOTE | 2020-03-30 16:45 | NUR ---
CM/SS: [facility] [phone] - will pick up and delivery driver pt at 9:00am to transport pt home.
[2020-03-30] MEDS ORDERED: CEFD300C3 PO (19:52)
[2020-03-30 21:26] VITALS: BP 188/89
[2020-03-30] MEDS: DONEPEZIL 10 MG (ARICEPT) TAB PO SCH (21:28)
[2020-03-30] MEDS: risperiDONE 1 MG (RisperDAL) TAB PO SCH (21:28)
[2020-03-31 00:17] VITALS: BP 169/96
[2020-03-31 06:13] LABS: ALBUMIN 3.2 GM/DL (3.2-4.5); CHLORIDE 103 MMOL/L (98-107); POTASSIUM 3.9 MMOL/L (3.6-5.0); SODIUM 138 MMOL/L (135-145)
[2020-03-31 06:14] LABS: CALCIUM 8.3 MG/DL (8.5-10.1)
[2020-03-31 06:15] LABS: GLUCOSE 208 MG/DL (70-105); TOTAL PROTEIN 6.4 GM/DL (6.4-8.2)
[2020-03-31 06:17] LABS: BILIRUBIN,TOTAL 1.1 MG/DL (0.1-1.0); CARBON DIOXIDE 23 MMOL/L (21-32)
[2020-03-31 06:19] LABS: ALKALINE PHOSPHATASE 62 U/L (40-136); CREATININE SERUM 0.76 MG/DL (0.60-1.30); GFR ESTIMATED > 60
[2020-03-31 06:20] LABS: BUN/CREATININE RATIO 25
[2020-03-31 06:22] LABS: ALANINE AMINOTRANSFERASE 31 U/L (0-55)
[2020-03-31] MEDS: inSUlin ASPART (NovoLOG) 1 UNIT/0.01 ML (CHARGE PER UNIT) SC SCH (06:54)
[2020-03-31] MEDS ORDERED: REMDESIVIR INJ 100 MG in NS (IVPB) 230 ML IV SCH (07:00)
[2020-03-31 08:00] VITALS: BP 188/86
[2020-03-31] MEDS: RT-ALBUTEROL INHALER HFA (VENTOLIN HFA) 18 GM IH SCH (08:33)
[2020-03-31] MEDS ORDERED: RELABEL FOR HOME USE MC SCH (08:45)
[2020-03-31] MEDS: RIVAROXABAN 20 MG TABLET (XARELTO) PO SCH (08:46)
[2020-03-31] MEDS: ALLOPURINOL 100 MG (ZYLOPRIM) TAB PO SCH (08:46)
[2020-03-31] MEDS: AZITHROMYCIN 250 MG TAB (ZITHROMAX) PO SCH (08:46)
[2020-03-31] MEDS: meTOprolol TARTRATE 50 MG (LOPRESSOR) TAB PO SCH (08:46)
[2020-03-31] MEDS ORDERED: lisINopril 40 MG (PRINIVIL) TABLET PO SCH (09:00)
[2020-03-31] MEDS ORDERED: CEFDINIR 300 MG (OMNICEF) CAP PO SCH ×3 (09:00)
[2020-03-31] MEDS ORDERED: amLODIPine 5 MG (NORVASC) TAB PO SCH (09:00)
[2020-03-31] MEDS ORDERED: lisINopril 20 MG (PRINIVIL) TABLET PO SCH (09:00)
--- NOTE | 2020-04-01 19:49 | Discharge Summary ---
Discharge Summary Hospital Course Problems/Dx: (1) Acute respiratory failure due to COVID-19 Status: Acute (2) PNA (pneumonia) Status: Acute (3) T2DM (type 2 diabetes mellitus) Status: Chronic Qualifiers: (4) Steroid-induced hyperglycemia Status: Acute (5) HTN (hypertension) Status: Chronic Qualifiers: Qualified Codes: I10 - Essential (primary) hypertension (6) A-fib Status: Chronic Qualifiers: Qualified Codes: I48.0 - Paroxysmal atrial fibrillation (7) HLD (hyperlipidemia) Status: Chronic (8) Obesity Status: Chronic Qualifiers: (9) Dementia Status: Chronic Qualifiers: Qualified Codes: F03.90 - Unspecified dementia without behavioral disturbance Hospital Course Date of Admission: Mar 26, 2020 at 18:21 Admission Diagnosis : Acute respiratory failure due to COVID-19 Family Physician/Provider: Ana Aragon DO Date of Discharge: 04/01/20 Discharge Diagnosis: Acute respiratory failure due to COVID-19 Hospital Course: Deejay Car is a 75 year old male who was admitted with acute respiratory failure due to COVID-19. He was treated wtih Decadron, Remdesivir, and convalescent plasma. He was initially requiring supplemental oxygen, but this need resolved prior to discharge. His course was complicated by a superimposed bacterial pneumonia. He was treated with IV antibiotics and given a course of Omnicef to complete at home. He was evaluated by physical therapy and deemed to be independent at his baseline. He was discharged home in stable condition. He should follow up with Dr. Aragon in a week or two. Labs and Pending Lab Test: Microbiology 03/26/20 Influenza Types A,B Antigen (VANE) - Final, Complete 03/26/20 Urine Culture - Final, Complete NO GROWTH 03/26/20 Blood Culture - Final, Complete No growth Home Meds Active Cefdinir 300 Mg Capsule 300 Mg PO BID 5 Days Reported Furosemide 20 Mg Tablet 20 Mg PO DAILY Xarelto (Rivaroxaban) 20 Mg Tablet 20 Mg PO DAILY Cetirizine HCl 10 Mg Tablet 10 Mg PO DAILY Metoprolol Tartrate 50 Mg Tablet 50 Mg PO BID Lisinopril 20 Mg Tablet 20 Mg PO DAILY Potassium Chloride 10 Meq Capsule.er 10 Meq PO DAILY Glimepiride 4 Mg Tablet 4 Mg PO BID Risperidone 0.5 Mg Tablet 0.5 Mg PO HS Donepezil HCl 10 Mg Tablet 10 Mg PO HS Magnesium (Magnesium Oxide) 400 Mg Tablet 400 Mg PO DAILY Escitalopram Oxalate 20 Mg Tablet 20 Mg PO DAILY Atorvastatin Calcium 10 Mg Tablet 10 Mg PO DAILY Allopurinol 100 Mg Tablet 100 Mg PO DAILY Tylenol Extra Strength (Acetaminophen) 500 Mg Tablet 500-1,000 Mg PO Q6H PRN TAKES 1-2 (500 MG) TABLETS Assessment/Pt Instructions Take medications as prescribed. Complete your course of antibiotics even if you are feeling better. Follow up with Dr. Aragon. Discharge Planning: <30 minutes discharge planning Discharge Instructions Discharge Diet: No Restrictions Activity as Tolerated: Yes Discharge Physical Examination Vital Signs Vital Signs Date Time Temp Pulse Resp B/P (MAP) Pulse Ox O2 Delivery O2 Flow Rate FiO2 03/31/20 10:00 03/31/20 09:00 93 Room Air 03/31/20 08:00 65 19 03/31/20 03:12 2.00 03/31/20 00:17 36.4 General Appearance: No Apparent Distress, WD/WN HEENT: PERRL/EOMI, Pharynx Normal Respiratory: Lungs Clear, Normal Breath Sounds, No Respiratory Distress Cardiovascular: Regular Rate, Rhythm, No Edema, No Murmur Gastrointestinal: Normal Bowel Sounds, Non Tender, Soft Extremity: Normal Inspection, Non Tender, No Pedal Edema Skin: Normal Color, Warm/Dry Neurologic/Psychiatric: Alert, Oriented x3, No Motor/Sensory Deficits, Normal Mood/Affect Allergies: Coded Allergies: NKANo Known Allergies (Unverified Allergy, Mild, 09/19/17) Copy Copies To 1: ANA ARAGON DO Discharge Summary Date of Admission Mar 26, 2020 at 18:21 Date of Discharge Mar 31, 2020 at 09:05 Discharge Date: Mar 31, 2020 Discharge Time: 09:05 Admission Diagnosis Acute Respiratory Failure from COVID19 Discharge Diagnosis Acute respiratory failure due to COVID-19 (1) Acute respiratory failure due to COVID-19 Status: Acute (2) PNA (pneumonia) Status: Acute (3) T2DM (type 2 diabetes mellitus) Status: Chronic Qualifiers: (4) Steroid-induced hyperglycemia Status: Acute (5) HTN (hypertension) Status: Chronic Qualifiers: Qualified Codes: I10 - Essential (primary) hypertension (6) A-fib Status: Chronic Qualifiers: Qualified Codes: I48.0 - Paroxysmal atrial fibrillation (7) HLD (hyperlipidemia) Status: Chronic (8) Obesity Status: Chronic Qualifiers: (9) Dementia Status: Chronic Qualifiers: Qualified Codes: F03.90 - Unspecified dementia without behavioral disturbance Clinical Quality Measures DVT/VTE Risk/Contraindication: Risk Factor Score Per Nursin RFS Level Per Nursing on Admit: 4+=Very High KUSUM JACOB MD Apr 01, 2020 19:47
== END 2020-03-31 09:05 | disposition home or self-care (01) | DRG 871 ==
LOC: EDUNIT# 16:08 → ER 16:08 → ICU 18:21 → ER 18:31 → 4TH 03-27 20:11
PROVIDERS: ADMIT Family Medicine; ATTEND Internal Medicine
PROC: XW033E5 Introduction of Remdesivir Anti-infective into Peripheral Vein, Percutaneous Approach, New Technology Group 5 (ICD-10-PCS; principal; 2020-03-27)
PROC: XW13325 Transfusion of Convalescent Plasma (Nonautologous) into Peripheral Vein, Percutaneous Approach, New Technology Group 5 (ICD-10-PCS; 2020-03-27)
DX: A41.89 Other specified sepsis (principal); U07.1 COVID-19; J96.01 Acute respiratory failure with hypoxia; J12.89 Other viral pneumonia; J15.9 Unspecified bacterial pneumonia; E87.2 Acidosis; I50.32 Chronic diastolic (congestive) heart failure; I48.20 Chronic atrial fibrillation, unspecified; R65.20 Severe sepsis without septic shock; I11.0 Hypertensive heart disease with heart failure; I27.20 Pulmonary hypertension, unspecified; I25.10 Atherosclerotic heart disease of native coronary artery without angina pectoris; E78.00 Pure hypercholesterolemia, unspecified; E11.65 Type 2 diabetes mellitus with hyperglycemia; E78.5 Hyperlipidemia, unspecified; J30.1 Allergic rhinitis due to pollen; F03.90 Unspecified dementia, unspecified severity, without behavioral disturbance, psychotic disturbance, mood disturbance, and anxiety; N40.0 Benign prostatic hyperplasia without lower urinary tract symptoms; K44.9 Diaphragmatic hernia without obstruction or gangrene; M19.91 Primary osteoarthritis, unspecified site; M54.9 Dorsalgia, unspecified; E66.9 Obesity, unspecified; M10.9 Gout, unspecified; Z68.32 Body mass index [BMI] 32.0-32.9, adult; Z87.891 Personal history of nicotine dependence; Z85.828 Personal history of other malignant neoplasm of skin; Z79.01 Long term (current) use of anticoagulants; T38.0X5A Adverse effect of glucocorticoids and synthetic analogues, initial encounter
CPT/HCPCS: 36415; 51702; 71045; 80048; 80053; 81000; 82805; 82962; 83036; 83605; 83735; 84100; 84145; 85025; 85379; 85610; 85730; 86141; 86900; 86901; 87040; 87088; 87635; 87804; 94640; 94664; 94760; 94761; 96361; 96374; 99291

== ENCOUNTER 2020-05-12 18:02 | Emergency (ER) | payer MEDICARE ==
[~2020-05-12] VITALS: Ht 172.7 cm; Wt 92.5 kg
[~2020-05-12 18:02] MED LIST changes: +CEFD300C3 PO
[2020-05-12] MEDS ORDERED: fentaNYL INJECTION 100 MCG/2 ML AMP IVP ONE (18:30)
[2020-05-12] MEDS ORDERED: NS IV 1000 ML 1,000 ML IV SCH (18:30)
--- NOTE | 2020-05-12 18:32 | ED Abdominal Pain ---
General Chief Complaint: Abdominal/GI Problems Stated Complaint: R SIDE PAIN Nursing Triage Note: Pt c/o R sided abdominal and flank pain that began 1.5 weeks ago. Sepsis Screen: No Definite Risk Source of Information: Patient Exam Limitations: No Limitations History of Present Illness Date Seen by Provider: May 12, 2020 Time Seen by Provider: 18:13 Initial Comments Patient presents to the ER by private conveyance with chief complaint of progressively worsening right-sided flank and abdominal pain for 1-1/2 weeks. He has been taking Tylenol and getting through it. He has not tried any antacids, Gas-X etc. He denies a history of peptic ulcer disease. He had his gallbladder out but still has his appendix. He had multiple colonoscopies with the last one being 2 years ago and no polyps were found. No mention of diverticulitis. He has had no trauma. No dysuria diarrhea or constipation. He had a bowel movement which was normal, formed this morning. He is having no nausea fever chills. He is under the care of Dr. Aragon but has not engaged her for this problem yet. He rates his pain as 9 out of 10, sharp, consistent and unrelated to meals or bowel movements. Allergies and Home Medications Allergies Coded Allergies: NKANo Known Allergies (Unverified Allergy, Mild, 09/19/17) Home Medications Acetaminophen 500 Mg Tablet, 500-1,000 MG PO Q6H PRN for PAIN-MILD, (Reported) TAKES 1-2 (500 MG) TABLETS Allopurinol 100 Mg Tablet, 100 MG PO DAILY, (Reported) Atorvastatin Calcium 10 Mg Tablet, 10 MG PO DAILY, (Reported) Cefdinir 300 Mg Capsule, 300 MG PO BID Prescribed by: KUSUM JACOB on 03/30/201951 Cetirizine HCl 10 Mg Tablet, 10 MG PO DAILY, (Reported) Donepezil HCl 10 Mg Tablet, 10 MG PO HS, (Reported) Escitalopram Oxalate 20 Mg Tablet, 20 MG PO DAILY, (Reported) Furosemide 20 Mg Tablet, 20 MG PO DAILY, (Reported) Glimepiride 4 Mg Tablet, 4 MG PO BID, (Reported) Lisinopril 20 Mg Tablet, 20 MG PO DAILY, (Reported) Magnesium Oxide 400 Mg Tablet, 400 MG PO DAILY, (Reported) Metoprolol Tartrate 50 Mg Tablet, 50 MG PO BID, (Reported) Potassium Chloride 10 Meq Capsule.er, 10 MEQ PO DAILY, (Reported) Risperidone 0.5 Mg Tablet, 0.5 MG PO HS, (Reported) Rivaroxaban 20 Mg Tablet, 20 MG PO DAILY, (Reported) Patient Home Medication List Home Medication List Reviewed: Yes Review of Systems Review of Systems Constitutional: No chills, No fever EENTM: No Blurred Vision, No Double Vision Respiratory: Denies Cough, Denies Shortness of Air Cardiovascular: Denies Chest Pain, Denies Lightheadedness Gastrointestinal: See HPI, Abdominal Pain; Denies Constipated, Denies Diarrhea, Denies Nausea, Denies Vomiting Genitourinary: Denies Burning, Denies Discharge Musculoskeletal: No back pain, No joint pain Psychiatric/Neurological: Denies Anxiety, Denies Depressed All Other Systems Reviewed Negative Unless Noted: Yes Past Pmndsys-Upvunu-Vdejpb Hx Patient Social History Alcohol Use: Denies Use Number of Drinks Today: AA Alcohol Beverage of Choice: Beer Recreational Drug Use: No Smoking Status: Former Smoker Type Used: Cigarettes Former Smoker, Quit: Aug 07, 1987 2nd Hand Smoke Exposure: No Recent Foreign Travel: No Contact w/Someone Who Travel: No Recent Infectious Disease Expo: No Recent Hopitalizations: Yes (ED FOR COVID) Immunizations Up To Date Tetanus Booster (TDap): Less than 5yrs PED Vaccines UTD: Yes Date of Pneumonia Vaccine: September 15, 2017 Date of Influenza Vaccine: Feb 18, 2017 Seasonal Allergies Seasonal Allergies: Yes (POLLEN ) Past Medical History Surgeries: Yes (HERNIA; HEMORRHOIDS;EYE MUSCLE SURGERY;SKIN GRAFT;CARDIAC CATH- ANGIOPLASTY ) Abdominal, Cardiac, Gallbladder, Rectal Respiratory: No (pt states he has difficulty sleeping lying down, prefers to sleep upright) Currently Using CPAP: No Currently Using BIPAP: No Cardiac: Yes (CARDIAC CATHS--ANGIOPLASTY X 2--LAST CATH 2017-NO INTERVENTION;CHF) Atrial Fibrillation, Chronic Edema/Swelling, Coronary Artery Disease, High Cholesterol, Hypertension Neurological: Yes Dementia Reproductive Disorders: No Sexually Transmitted Disease: No HIV/AIDS: No Genitourinary: Yes Benign Prostatic Hyperpl Gastrointestinal: Yes Hiatal Hernia Musculoskeletal: Yes Degenerate Disk Disease, Arthritis, Chronic Back Pain, Gout Endocrine: Yes Diabetes, Non-Insulin dep HEENT: Yes Cataract Loss of Vision: Denies Hearing Impairment: Hard of Hearing Cancer: Yes Skin Did You Recieve Any Treatments: Yes What Type of Treatment Did You: Surgical Intervention Psychosocial: Yes Anxiety, Depression Integumentary: Yes (skin graft to left graham, BASAL CELL CARCINOMAS *10) Blood Disorders: No Adverse Reaction/Blood Tranf: No (N/A) Family Medical History Cardiovascular disease 19 FATHER Hypertension 19 FATHER No Pertinent Family Hx Physical Exam Vital Signs Vital Signs - First Documented 05/12/20 18:09 Temp 36.2 Pulse 77 Resp 17 B/P (MAP) 183/128 (146) Pulse Ox 94 O2 Delivery Room Air Capillary Refill : Less Than 3 Seconds Height/Weight/BMI Height: 5'8.00" Weight: 207lbs. 0.0oz. 93.448738hq; 31.00 BMI Method:Stated General Appearance: WD/WN, no apparent distress HEENT: PERRL/EOMI, normal ENT inspection, pharynx normal Neck: full range of motion, normal inspection Respiratory: normal breath sounds, no respiratory distress, no accessory muscle use Cardiovascular: normal peripheral pulses, regular rate, rhythm Peripheral Pulses: 2+ Radial Pulses (R), 2+ Radial Pulses (L) Gastrointestinal: normal bowel sounds (Quiescent), soft Extremities: normal range of motion, normal inspection, no pedal edema, normal capillary refill Back: no vertebral tenderness, CVA tenderness (R) Neurologic/Psychiatric: alert, normal mood/affect, oriented x 3 Skin: normal color, warm/dry; No rash Progress/Results/Core Measures Results/Orders Lab Results Laboratory Tests Test 05/12/20 18:20 05/12/20 18:25 Range/Units White Blood Count 5.5 4.3-11.0 10^3/uL Red Blood Count 5.09 4.30-5.52 10^6/uL Hemoglobin 15.7 13.3-17.7 g/dL Hematocrit 46 40-54 % Mean Corpuscular Volume 91 80-99 fL Mean Corpuscular Hemoglobin 31 25-34 pg Mean Corpuscular Hemoglobin Concent 34 32-36 g/dL Red Cell Distribution Width 13.2 10.0-14.5 % Platelet Count 148 130-400 10^3/uL Mean Platelet Volume 10.0 9.0-12.2 fL Immature Granulocyte % (Auto) 0 % Neutrophils (%) (Auto) 60 42-75 % Lymphocytes (%) (Auto) 26 12-44 % Monocytes (%) (Auto) 11 0-12 % Eosinophils (%) (Auto) 1 0-10 % Basophils (%) (Auto) 1 0-10 % Neutrophils # (Auto) 3.3 1.8-7.8 10^3/uL Lymphocytes # (Auto) 1.5 1.0-4.0 10^3/uL Monocytes # (Auto) 0.6 0.0-1.0 10^3/uL Eosinophils # (Auto) 0.1 0.0-0.3 10^3/uL Basophils # (Auto) 0.0 0.0-0.1 10^3/uL Immature Granulocyte # (Auto) 0.0 0.0-0.1 10^3/uL Sodium Level 142 135-145 MMOL/L Potassium Level 3.9 3.6-5.0 MMOL/L Chloride Level 104 98-107 MMOL/L Carbon Dioxide Level 26 21-32 MMOL/L Anion Gap 12 5-14 MMOL/L Blood Urea Nitrogen 12 7-18 MG/DL Creatinine 0.91 0.60-1.30 MG/DL Estimat Glomerular Filtration Rate > 60 BUN/Creatinine Ratio 13 Glucose Level 157 H 70-105 MG/DL Calcium Level 9.3 8.5-10.1 MG/DL Corrected Calcium 9.1 8.5-10.1 MG/DL Total Bilirubin 1.2 H 0.1-1.0 MG/DL Aspartate Amino Transf (AST/SGOT) 17 5-34 U/L Alanine Aminotransferase (ALT/SGPT) 18 0-55 U/L Alkaline Phosphatase 97 40-136 U/L C-Reactive Protein High Sensitivity 0.66 H 0.00-0.50 MG/DL Total Protein 7.8 6.4-8.2 GM/DL Albumin 4.2 3.2-4.5 GM/DL Lipase 34 8-78 U/L Urine Color YELLOW Urine Clarity CLEAR Urine pH 7.0 5-9 Urine Specific [place] 1.020 1.016-1.022 Urine Protein NEGATIVE NEGATIVE Urine Glucose (UA) NEGATIVE NEGATIVE Urine Ketones NEGATIVE NEGATIVE Urine Nitrite NEGATIVE NEGATIVE Urine Bilirubin NEGATIVE NEGATIVE Urine Urobilinogen 0.2 < = 1.0 MG/DL Urine Leukocyte Esterase NEGATIVE NEGATIVE Urine RBC (Auto) TRACE-I NEGATIVE Urine RBC 2-5 H /HPF Urine WBC 0-2 /HPF Urine Crystals NONE /LPF Urine Bacteria TRACE /HPF Urine Casts NONE /LPF Urine Mucus NEGATIVE /LPF Urine Culture Indicated NO My Orders Orders - NICHOLAS GUERRERO Ed Iv/Invasive Line Start (05/12/20 18:22) Ns Iv 1000 Ml (Sodium Chloride 0.9%) (05/12/20 18:30) Cbc With Automated Diff (05/12/20 18:22) Comprehensive Metabolic Panel (05/12/20 18:22) Hs C Reactive Protein (05/12/20 18:22) Lipase (05/12/20 18:22) Ua Culture If Indicated (05/12/20 18:22) Fentanyl Injection (Sublimaze Injection (05/12/20 18:30) Iohexol Injection (Omnipaque 350 Mg/Ml 1 (05/12/20 19:00) Received Contrast (Hold Metformin- Contr (05/12/20 19:00) Ns (Ivpb) (Sodium Chloride 0.9% Ivpb Bag (05/12/20 19:00) Ct Abdomen/Pelvis W Wo (05/12/20 19:13) Medications Given in ED Current Medications Medications Dose Ordered Sig/Jaylen Route Start Time Stop Time Status Last Admin Dose Admin Fentanyl Citrate 50 mcg ONCE ONCE IVP 05/12/20 18:30 05/12/20 18:31 DC 05/12/20 18:32 50 MCG Iohexol 100 ml ONCE ONCE IV 05/12/20 19:00 05/12/20 19:01 DC 05/12/20 19:32 83 ML Sodium Chloride 100 ml ONCE ONCE IV 05/12/20 19:00 05/12/20 19:01 DC 05/12/20 19:32 100 ML Vital Signs/I&O 05/12/20 18:09 Temp 36.2 Pulse 77 Resp 17 B/P (MAP) 183/128 (146) Pulse Ox 94 O2 Delivery Room Air Blood Pressure Mean: 146 Progress Progress Note #1: Time: 18:33 Progress Note No evidence of shingles. He has tenderness to percussion over his right costovertebral angle. He has mild tenderness in his right flank on palpation without Rivera sign or McBurney's point rebound tenderness or other mesenteric signs. Given his advanced age diverticulitis, appendicitis, urinary system should be investigated using labs, urinalysis and a CT of the abdomen pelvis. For his 9 out of 10 pain we will give him 50 mcg of fentanyl. 1 L of normal saline Progress Note #2: Time: 19:52 Progress Note Labs, CT and clinical exam are not acutely alarming. We will plan to have him follow-up with Dr. Aragon outpatient. Suspect he has musculoskeletal pain. After discussing this possibility with him he states he did have a fall and quite a bit of pain for about 2 weeks afterwards the day after Thanksgiving. This could be sequelae. No evidence of fracture seen on CT. Plan to provide him with some breakthrough hydrocodone if necessary and we discussed doing some steroids which he agreed to. He did receive some improvement from the fentanyl but the pain is still there. He is not a candidate for NSAIDs because he is on a blood thinner. Diagnostic Imaging Diagonstic Imaging: CT Plain Films/CT/US/NM/MRI: abdomen, pelvis Comments [facility] [place], [place] NAME: LISSET BOBBY [facility] REC#: [id number] PT STATUS: REG ER : 1945 PHYSICIAN: NICHOLAS GUERRERO MD ADMIT DATE: 05/12/20/ER Signed Date of Exam:05/12/20 CT ABDOMEN/PELVIS W WO PROCEDURE: CT abdomen and pelvis with and without contrast. TECHNIQUE: Precontrast acquisitions were acquired through the abdomen and pelvis. Multiple contiguous axial images were obtained through the abdomen and pelvis after the administration of intravenous contrast. Auto Exposure Controls were utilized during the CT exam to meet ALARA standards for radiation dose reduction. INDICATION: Right flank pain. FINDINGS: Lung bases are clear. There are no renal calculi. No hydronephrosis. There is a 1 cm cyst in the left kidney and a 5 mm cyst in the upper pole of the right kidney. Delayed images show normal opacification of the collecting system and ureter. Bladder is opacified. There is considerable enlargement of the prostate. The bladder is not distended. The appendix is normal. Colon shows normal stool and gas pattern with diverticulosis of the descending and sigmoid colon. Small bowel is not distended. There is no bowel wall thickening. The lung bases are clear. The liver appears normal. Gallbladder is absent. Bile ducts are not dilated. Pancreas appears normal. The spleen is normal. The adrenal glands are normal. No intra-abdominal adenopathy of pathologic size. There is no free air or free fluid. IMPRESSION: 1. Enlarged prostate without evidence of bladder outlet obstruction at this time. Kidneys appear normal. 2. The appendix is normal. Diverticulosis of the sigmoid colon with no evidence of diverticulitis. Dictated by: Dictated on workstation # [id number] Dict: 05/12/201936 Trans: 05/12/201944 CVB [id number] Interpreted by: KODAK BARROW MD Electronically signed by: KODAK BARROW MD 05/12/201944 Reviewed: Reviewed by Me Departure Impression Primary Impression: Back pain Qualified Codes: M54.5 - Low back pain Additional Impressions: Acute flank pain Microscopic hematuria Disposition: HOME, SELF-CARE Condition: Stable Departure-Patient Inst. Decision time for Depature: 19:45 Referrals: ANA ARAGON DO (PCP/Family) Primary Care Physician Patient Instructions: Back Stretches on Floor, Flank Pain (DC), Low Back Pain (DC) Add. Discharge Instructions: Drink plenty of fluids and wear a back brace on the days that it helps. Topical creams such as icy hot or Biofreeze applied over your right flank and back. Tylenol 650 mg every 6 hours as necessary for pain. For severe breakthrough pain keeping you from being functional you may use hydrocodone. Hydrocodone 1 tablet every 6 hours as necessary for pain. Hydrocodone will cause constipation and drowsiness and should not be mixed with alcohol. If you are using hydrocodone you should probably also use stool softeners or laxative such as Colace or MiraLAX daily. I suggest you follow-up in 1 to 2 weeks with your primary care doctor for reevaluation of your symptoms. We are going to put you on a steroid to help bring down the inflammation in your back. 2 tablets of prednisone daily in the morning for the next 5 days. Prednisone will cause a mild increase in your blood pressure and your blood sugar. Continue taking your medications and this will go away when you are done with the medicine. Return to the ER promptly for any worsening symptoms especially fevers or intractable pain. All discharge instructions reviewed with patient and/or family. Voiced understanding. Scripts Hydrocodone/Acetaminophen (Hydrocodone-Acetamin 5-325 mg) 1 Each Tablet 1 EACH PO Q6H PRN for PAIN-BREAKTHROUGH, #10 TAB 0 Refills Prov: NICHOLAS GUERRERO 05/12/20 Prednisone (Prednisone) 20 Mg Tab 40 MG PO DAILY for 5 Days, #10 TAB 0 Refills Prov: NICHOLAS GUERRERO 05/12/20 NICHOLAS GUERRERO May 12, 2020 18:32
[2020-05-12 18:39] LABS: ALBUMIN 4.2 GM/DL (3.2-4.5)
[2020-05-12 18:39] LABS: BILIRUBIN,URINE NEGATIVE (NEGATIVE); CLARITY,URINE CLEAR; COLOR,URINE YELLOW; GLUCOSE, URINE (UA) NEGATIVE (NEGATIVE); KETONES,URINE NEGATIVE (NEGATIVE); LEUKOCYTE ESTERASE ,URINE NEGATIVE (NEGATIVE); NITRITE,URINE NEGATIVE (NEGATIVE); PROTEIN,URINE NEGATIVE (NEGATIVE)
[2020-05-12 18:40] LABS: BASOPHILS % (AUTO) 1 % (0-10); CHLORIDE 104 MMOL/L (98-107); EOSINOPHILS # (AUTO) 0.1 10^3/uL (0.0-0.3); EOSINOPHILS % (AUTO) 1 % (0-10); HEMATOCRIT 46 % (40-54); HEMOGLOBIN 15.7 g/dL (13.3-17.7); LYMPHOCYTES # (AUTO) 1.5 10^3/uL (1.0-4.0); LYMPHOCYTES % (AUTO) 26 % (12-44); MEAN CORPUSCULAR HEMOGLOBIN 31 pg (25-34); MEAN CORPUSCULAR HGB CONC 34 g/dL (32-36); MEAN CORPUSCULAR VOLUME 91 fL (80-99); MONOCYTES # (AUTO) 0.6 10^3/uL (0.0-1.0); MONOCYTES % (AUTO) 11 % (0-12); NEUTROPHILS # (AUTO) 3.3 10^3/uL (1.8-7.8); NEUTROPHILS % (AUTO) 60 % (42-75); PLATELET COUNT 148 10^3/uL (130-400); POTASSIUM 3.9 MMOL/L (3.6-5.0); SODIUM 142 MMOL/L (135-145); WHITE BLOOD COUNT 5.5 10^3/uL (4.3-11.0)
[2020-05-12 18:41] LABS: CALCIUM 9.3 MG/DL (8.5-10.1)
[2020-05-12 18:42] LABS: GLUCOSE 157 MG/DL (70-105); TOTAL PROTEIN 7.8 GM/DL (6.4-8.2)
[2020-05-12 18:43] LABS: CARBON DIOXIDE 26 MMOL/L (21-32)
[2020-05-12 18:44] LABS: BILIRUBIN,TOTAL 1.2 MG/DL (0.1-1.0)
[2020-05-12 18:45] LABS: ALKALINE PHOSPHATASE 97 U/L (40-136)
[2020-05-12 18:46] LABS: CREATININE SERUM 0.91 MG/DL (0.60-1.30); GFR ESTIMATED > 60
[2020-05-12 18:47] LABS: BUN/CREATININE RATIO 13
[2020-05-12 18:49] LABS: ALANINE AMINOTRANSFERASE 18 U/L (0-55); LIPASE 34 U/L (8-78)
[2020-05-12] MEDS ORDERED: HOLD METFORMIN - RECEIVED CONTRAST 20 ML VIAL IV SCH (19:00)
[2020-05-12] MEDS ORDERED: NS 100 ML (IVPB) BAG IV ONE (19:00)
[2020-05-12] MEDS ORDERED: IOHEXOL 350 MG/ML 100 ML (OMNIPAQUE 350) VIAL IV ONE (19:00)
[2020-05-12 19:06] LABS: BACTERIA,URINE TRACE /HPF; WBC,URINE 0-2 /HPF
--- NOTE | 2020-05-12 19:45 | Diagnostic Imaging Report ---
PROCEDURE: CT abdomen and pelvis with and without contrast. TECHNIQUE: Precontrast acquisitions were acquired through the abdomen and pelvis. Multiple contiguous axial images were obtained through the abdomen and pelvis after the administration of intravenous contrast. Auto Exposure Controls were utilized during the CT exam to meet ALARA standards for radiation dose reduction. INDICATION: Right flank pain. FINDINGS: Lung bases are clear. There are no renal calculi. No hydronephrosis. There is a 1 cm cyst in the left kidney and a 5 mm cyst in the upper pole of the right kidney. Delayed images show normal opacification of the collecting system and ureter. Bladder is opacified. There is considerable enlargement of the prostate. The bladder is not distended. The appendix is normal. Colon shows normal stool and gas pattern with diverticulosis of the descending and sigmoid colon. Small bowel is not distended. There is no bowel wall thickening. The lung bases are clear. The liver appears normal. Gallbladder is absent. Bile ducts are not dilated. Pancreas appears normal. The spleen is normal. The adrenal glands are normal. No intra-abdominal adenopathy of pathologic size. There is no free air or free fluid. IMPRESSION: 1. Enlarged prostate without evidence of bladder outlet obstruction at this time. Kidneys appear normal. 2. The appendix is normal. Diverticulosis of the sigmoid colon with no evidence of diverticulitis. Dictated by: Dictated on workstation # [id number]
[2020-05-12] MEDS ORDERED: ACHD5005 PO (20:06)
[2020-05-12] MEDS ORDERED: PRD20T PO (20:06)
[2020-05-12] MEDS ORDERED: RX-HYDROCODONE/APAP 5/325 MG #4 TAB PK PO PRN (20:15)
[2020-05-12 20:19] VITALS: BP 156/99
== END 2020-05-12 20:19 | disposition home or self-care (01) ==
LOC: EDUNIT# 18:02 → ER 18:04
DX: M54.5 Low back pain (principal); R10.9 Unspecified abdominal pain; R31.29 Other microscopic hematuria; I10 Essential (primary) hypertension; E11.9 Type 2 diabetes mellitus without complications; E78.00 Pure hypercholesterolemia, unspecified; I25.10 Atherosclerotic heart disease of native coronary artery without angina pectoris; I48.91 Unspecified atrial fibrillation; F41.9 Anxiety disorder, unspecified; F32.9 Major depressive disorder, single episode, unspecified; M10.9 Gout, unspecified; G89.29 Other chronic pain; F03.90 Unspecified dementia, unspecified severity, without behavioral disturbance, psychotic disturbance, mood disturbance, and anxiety; Z87.891 Personal history of nicotine dependence; Z95.9 Presence of cardiac and vascular implant and graft, unspecified; Z85.828 Personal history of other malignant neoplasm of skin; Z79.84 Long term (current) use of oral hypoglycemic drugs
CPT/HCPCS: 36415; 74178; 80053; 81000; 83690; 85025; 86141

== ENCOUNTER 2020-07-31 09:14 | Emergency (ER) | payer MEDICARE ==
[~2020-07-31] VITALS: Ht 172.7 cm; Wt 92.5 kg
[~2020-07-31 09:14] MED LIST changes: +ESCI20TA39 PO; -ESCI20TA45 PO; -ESCI5TAB12 PO; +ESCI5TAB16 PO; -LISI-552 PO; +LISI20TA26 PO
--- NOTE | 2020-07-31 10:03 | ED General ---
General Chief Complaint: Ear Problems Stated Complaint: R EAR BLEEDING Source of Information: Patient, Family Exam Limitations: No Limitations History of Present Illness Date Seen by Provider: Jul 31, 2020 Time Seen by Provider: 09:40 Initial Comments Patient is a 75-year-old male who presents to the emergency department today with a chief complaint of bleeding from his right ear. He has had this off and on over the course of the last several months. He is chronically anticoagulated on Xarelto with a history of atrial fibrillation. Throughout the course and scope of the interview and assessment the patient relates that he has been kind of generally weak over the last several weeks to 1 to 2 months. He has had occasional dark tarry stools. His who is at the bedside states that his urine has been significantly darker than normal. She states he battled Covid in March 2020 and since that time has had steady decline in his ability to function. She states she is really worried about his weakness and overall energy levels. No recent fevers, chills, cough or congestion. No GI or symptoms other than the above-stated dark stools. He does state that he cleans his ears daily with Q-tips. He noticed blood dripping from his right ear this morning which is the precipitating event that caused him to come to the emergency department. Bleeding is controlled at the time of my evaluation. All other review of systems reviewed and negative except as stated above. Severity: Mild Associated Systoms: Malaise Allergies and Home Medications Allergies Coded Allergies: NKANo Known Allergies (Unverified Allergy, Mild, 09/19/17) Home Medications Acetaminophen 500 Mg Tablet, 500-1,000 MG PO Q6H PRN for PAIN-MILD, (Reported) TAKES 1-2 (500 MG) TABLETS Allopurinol 100 Mg Tablet, 100 MG PO DAILY, (Reported) Atorvastatin Calcium 10 Mg Tablet, 10 MG PO DAILY, (Reported) Cefdinir 300 Mg Capsule, 300 MG PO BID Prescribed by: KUSUM JACOB on 03/30/201951 Cetirizine HCl 10 Mg Tablet, 10 MG PO DAILY, (Reported) Donepezil HCl 10 Mg Tablet, 10 MG PO HS, (Reported) Escitalopram Oxalate 20 Mg Tablet, 20 MG PO DAILY, (Reported) Furosemide 20 Mg Tablet, 20 MG PO DAILY, (Reported) Glimepiride 4 Mg Tablet, 4 MG PO BID, (Reported) Hydrocodone/Acetaminophen 1 Each Tablet, 1 EACH PO Q6H PRN for PAIN-BREAKTHROUGH Prescribed by: NICHOLAS GUERRERO on 05/12/202005 Lisinopril 20 Mg Tablet, 20 MG PO DAILY, (Reported) Magnesium Oxide 400 Mg Tablet, 400 MG PO DAILY, (Reported) Metoprolol Tartrate 50 Mg Tablet, 50 MG PO BID, (Reported) Potassium Chloride 10 Meq Capsule.er, 10 MEQ PO DAILY, (Reported) Prednisone 20 Mg Tab, 40 MG PO DAILY Prescribed by: NICHOLAS GUERRERO on 05/12/202005 Risperidone 0.5 Mg Tablet, 0.5 MG PO HS, (Reported) Rivaroxaban 20 Mg Tablet, 20 MG PO DAILY, (Reported) Patient Home Medication List Home Medication List Reviewed: Yes Review of Systems Review of Systems Constitutional: see HPI EENTM: other (Blood from right ear canal) Respiratory: no symptoms reported Cardiovascular: no symptoms reported Gastrointestinal: other ("Dark stools") Genitourinary: no symptoms reported, other ("Dark urine") Musculoskeletal: no symptoms reported Skin: no symptoms reported All Other Systems Reviewed Negative Unless Noted: Yes Past Kpxclho-Lqxuov-Dfqiib Hx Patient Social History Alcohol Beverage of Choice: Beer Type Used: Cigarettes Former Smoker, Quit: Aug 07, 1987 2nd Hand Smoke Exposure: No Recent Hopitalizations: Yes (ED FOR COVID) Immunizations Up To Date Tetanus Booster (TDap): Less than 5yrs PED Vaccines UTD: Yes Date of Pneumonia Vaccine: September 15, 2017 Date of Influenza Vaccine: Feb 18, 2017 Seasonal Allergies Seasonal Allergies: Yes (POLLEN ) Past Medical History Surgeries: Yes (HERNIA; HEMORRHOIDS;EYE MUSCLE SURGERY;SKIN GRAFT;CARDIAC CATH- ANGIOPLASTY ) Abdominal, Cardiac, Gallbladder, Rectal Respiratory: No (pt states he has difficulty sleeping lying down, prefers to sleep upright) Currently Using CPAP: No Currently Using BIPAP: No Cardiac: Yes (CARDIAC CATHS--ANGIOPLASTY X 2--LAST CATH 2016-NO INTERVENTION;CHF) Atrial Fibrillation, Chronic Edema/Swelling, Coronary Artery Disease, High C holesterol, Hypertension Neurological: Yes Dementia Reproductive Disorders: No Sexually Transmitted Disease: No HIV/AIDS: No Genitourinary: Yes Benign Prostatic Hyperpl Gastrointestinal: Yes Hiatal Hernia Musculoskeletal: Yes Degenerate Disk Disease, Arthritis, Chronic Back Pain, Gout Endocrine: Yes Diabetes, Non-Insulin dep HEENT: Yes Cataract Loss of Vision: Denies Hearing Impairment: Hard of Hearing Cancer: Yes Skin Did You Recieve Any Treatments: Yes What Type of Treatment Did You: Surgical Intervention Psychosocial: Yes Anxiety, Depression Integumentary: Yes (skin graft to left graham, BASAL CELL CARCINOMAS *10) Blood Disorders: No Adverse Reaction/Blood Tranf: No (N/A) Family Medical History Cardiovascular disease 19 FATHER Hypertension 19 FATHER No Pertinent Family Hx Physical Exam Vital Signs Vital Signs - First Documented 07/31/20 09:27 Temp 37.0 Pulse 70 Resp 18 B/P (MAP) 177/88 (117) Pulse Ox 94 Capillary Refill : Height, Weight, BMI Height: 5'8.00" Weight: 207lbs. 0.0oz. [id number]; 31.00 BMI Method:Stated General Appearance: No Apparent Distress, WD/WN Eyes: Bilateral Eye Normal Inspection, Bilateral Eye PERRL, Bilateral Eye EOMI HEENT: TMs Normal, Normal ENT Inspection, Other (Patient has a little blood just inside the auricle of the right ear. He may have a very small abrasion on the anterior ear canal. No active bleeding is appreciated, TMs appear pearly celis bilaterally with normal landmarks) Neck: Supple Respiratory: Normal Breath Sounds, No Accessory Muscle Use, No Respiratory Distress Cardiovascular: Irregularly Irregular, Other (Distal pulses intact) Gastrointestinal: Non Tender, Soft Extremity: Normal Capillary Refill, Normal Inspection, Normal Range of Motion, Non Tender, No Calf Tenderness Neurologic/Psychiatric: Alert, Oriented x3, Normal Mood/Affect, Other (No extremity cogwheeling or rigidity is noted) Skin: Normal Color, Warm/Dry Progress/Results/Core Measures Suspected Sepsis SIRS Temperature: Pulse: Respiratory Rate: Laboratory Tests 07/31/20 11:15: White Blood Count 6.0 Blood Pressure / Mean: Laboratory Tests 07/31/20 11:15: Creatinine 0.80, Platelet Count 151 Results/Orders Lab Results Laboratory Tests Test 07/31/20 11:15 Range/Units White Blood Count 6.0 4.3-11.0 10^3/uL Red Blood Count 5.18 4.30-5.52 10^6/uL Hemoglobin 15.6 13.3-17.7 g/dL Hematocrit 46 40-54 % Mean Corpuscular Volume 89 80-99 fL Mean Corpuscular Hemoglobin 30 25-34 pg Mean Corpuscular Hemoglobin Concent 34 32-36 g/dL Red Cell Distribution Width 13.5 10.0-14.5 % Platelet Count 151 130-400 10^3/uL Mean Platelet Volume 10.0 9.0-12.2 fL Immature Granulocyte % (Auto) 0 % Neutrophils (%) (Auto) 65 42-75 % Lymphocytes (%) (Auto) 21 12-44 % Monocytes (%) (Auto) 12 0-12 % Eosinophils (%) (Auto) 1 0-10 % Basophils (%) (Auto) 1 0-10 % Neutrophils # (Auto) 3.9 1.8-7.8 10^3/uL Lymphocytes # (Auto) 1.2 1.0-4.0 10^3/uL Monocytes # (Auto) 0.7 0.0-1.0 10^3/uL Eosinophils # (Auto) 0.1 0.0-0.3 10^3/uL Basophils # (Auto) 0.0 0.0-0.1 10^3/uL Immature Granulocyte # (Auto) 0.0 0.0-0.1 10^3/uL Sodium Level 140 135-145 MMOL/L Potassium Level 4.0 3.6-5.0 MMOL/L Chloride Level 107 98-107 MMOL/L Carbon Dioxide Level 22 21-32 MMOL/L Anion Gap 11 5-14 MMOL/L Blood Urea Nitrogen 13 7-18 MG/DL Creatinine 0.80 0.60-1.30 MG/DL Estimat Glomerular Filtration Rate > 60 BUN/Creatinine Ratio 16 Glucose Level 135 H 70-105 MG/DL Calcium Level 9.2 8.5-10.1 MG/DL My Orders Orders - TONI CHOUDHARY MD Cbc With Automated Diff (07/31/20 10:28) Basic Metabolic Panel (07/31/20 10:28) Vital Signs/I&O 07/31/20 09:27 Temp 37.0 Pulse 70 Resp 18 B/P (MAP) 177/88 (117) Pulse Ox 94 Capillary Refill : Departure Impression Primary Impression: Bleeding from ear Qualified Codes: H92.21 - Otorrhagia, right ear Additional Impression: Chronic anticoagulation Disposition: 01 HOME, SELF-CARE Condition: Stable Departure-Patient Inst. Decision time for Depature: 11:49 Referrals: ANA RAMESH DO (PCP/Family) Primary Care Physician Patient Instructions: Staying Safe While Taking an Oral Medicine to Prevent or Treat Blood Clots Add. Discharge Instructions: Continue your home daily medications. Drink plenty of fluids to stay well-hydrated. Please call your primary care doctor's office tomorrow for a follow-up appointment this week. Return to the emergency room for any new, emergent or worsening complaints. TONI CHOUDHARY MD Jul 31, 2020 10:03
[2020-07-31 11:24] LABS: BASOPHILS % (AUTO) 1 % (0-10); EOSINOPHILS # (AUTO) 0.1 10^3/uL (0.0-0.3); EOSINOPHILS % (AUTO) 1 % (0-10); HEMATOCRIT 46 % (40-54); HEMOGLOBIN 15.6 g/dL (13.3-17.7); LYMPHOCYTES # (AUTO) 1.2 10^3/uL (1.0-4.0); LYMPHOCYTES % (AUTO) 21 % (12-44); MEAN CORPUSCULAR HEMOGLOBIN 30 pg (25-34); MEAN CORPUSCULAR HGB CONC 34 g/dL (32-36); MEAN CORPUSCULAR VOLUME 89 fL (80-99); MONOCYTES # (AUTO) 0.7 10^3/uL (0.0-1.0); MONOCYTES % (AUTO) 12 % (0-12); NEUTROPHILS # (AUTO) 3.9 10^3/uL (1.8-7.8); NEUTROPHILS % (AUTO) 65 % (42-75); PLATELET COUNT 151 10^3/uL (130-400)
[2020-07-31 11:34] LABS: CHLORIDE 107 MMOL/L (98-107); SODIUM 140 MMOL/L (135-145)
[2020-07-31 11:35] LABS: CALCIUM 9.2 MG/DL (8.5-10.1); GLUCOSE 135 MG/DL (70-105)
[2020-07-31 11:37] LABS: CARBON DIOXIDE 22 MMOL/L (21-32)
[2020-07-31 11:39] LABS: GFR ESTIMATED > 60
[2020-07-31 11:40] LABS: BUN/CREATININE RATIO 16
[2020-07-31 11:48] VITALS: BP 188/105
== END 2020-07-31 11:48 | disposition home or self-care (01) ==
LOC: EDUNIT# 09:14 → ER 09:16
DX: H92.21 Otorrhagia, right ear (principal); R82.998 Other abnormal findings in urine; R19.5 Other fecal abnormalities; I11.0 Hypertensive heart disease with heart failure; I50.9 Heart failure, unspecified; I48.91 Unspecified atrial fibrillation; I25.10 Atherosclerotic heart disease of native coronary artery without angina pectoris; E78.00 Pure hypercholesterolemia, unspecified; E11.9 Type 2 diabetes mellitus without complications; F03.90 Unspecified dementia, unspecified severity, without behavioral disturbance, psychotic disturbance, mood disturbance, and anxiety; Z79.01 Long term (current) use of anticoagulants; Z87.891 Personal history of nicotine dependence; Z86.16 Personal history of COVID-19; Z79.52 Long term (current) use of systemic steroids; Z94.5 Skin transplant status; Z95.9 Presence of cardiac and vascular implant and graft, unspecified; Z87.438 Personal history of other diseases of male genital organs; Z79.84 Long term (current) use of oral hypoglycemic drugs
CPT/HCPCS: 36415; 80048; 85025

== ENCOUNTER 2020-10-21 05:35 | Outpatient (RCR) | payer MEDICARE, MEDICAID ==
[~2020-10-21] VITALS: Ht 172.7 cm; Wt 92.3 kg
== END 2020-10-21 13:45 | disposition home or self-care (01) ==
LOC: PREOP 05:35
PROVIDERS: ATTEND Surgery
DX: Z01.812 Encounter for preprocedural laboratory examination (principal); U07.1 COVID-19; K92.1 Melena; Z85.038 Personal history of other malignant neoplasm of large intestine
CPT/HCPCS: 87635

== ENCOUNTER 2020-11-29 07:34 | Day surgery (SDC) | payer MEDICARE, MEDICAID ==
[~2020-11-29] VITALS: Ht 172.7 cm; Wt 92.3 kg
[2020-11-29] MEDS ORDERED: LACTATED RINGERS 1,000 ML IV STA (07:35)
[2020-11-29] MEDS ORDERED: LACTATED RINGERS 1,000 ML IV ONE (07:37)
[2020-11-29] MEDS ORDERED: HURRICAINE EXT TUBE (BENZOCAINE) XX PRN (07:45)
[2020-11-29] MEDS ORDERED: PROPOFOL INJECTION 50 ML IV ONE (07:56)
[2020-11-29 07:58] VITALS: BP 146/77
[2020-11-29 09:00] VITALS: BP 146/75
[2020-11-29 09:05] VITALS: BP 132/63
--- NOTE | 2020-11-29 09:05 | Progress Note-Post Operative ---
Post-Operative Progess Note Surgeon (s)/Central Sterilization Technician (s) Surgeon KEN ACOSTA DO Central Sterilization Technician: na Pre-Operative Diagnosis blood in stool, hx colon cancer Post-Operative Diagnosis hiatal hernia, subcutaneous lipoma antrum, reflux esophagitis, colon polyps x 4, diverticulosis. Procedure & Operative Findings Date of Procedure 11/29/20 Procedure Performed/Findings egd c biopsies, colonoscopy c snare polypectomy x 4 Anesthesia Type per thoracic medicine specialist Estimated Blood Loss Estimated blood loss (mL): none Specimens/Packing Specimens Removed antrum, ge, colon polyps KEN ACOSTA DO Nov 29, 2020 09:05
[2020-11-29] MEDS ORDERED: FAMO-119 PO (09:09)
[2020-11-29 09:10] VITALS: BP_SYST 129; BP_SYST 133; BP_DIAS 72; BP_DIAS 73
--- NOTE | 2020-11-29 09:10 | Discharge Inst-Simple/Standard ---
Discharge Inst-Standard Discharge Medications New, Converted or Re-Newed RX: Other (Pepcid over the counter) Patient Instructions/Follow Up Plan of Care/Instructions/FU: 2 Weeks Eliseo. Hold Xarelto for 3 more days then resume taking as normal. Activity as Tolerated: Yes Discharge Diet: Regular Diet KEN ACOSTA DO Nov 29, 2020 09:10
[2020-11-29 09:39] VITALS: BP 125/85
[2020-11-29 09:42] VITALS: BP 125/85
--- NOTE | 2020-11-29 11:02 | Anesthesia-General Post-Op ---
MAC Patient Condition Mental Status/LOC: Same as Preop Cardiovascular: Satisfactory Nausea/Vomiting: Absent Respiratory: Satisfactory Pain: Controlled Complications: Absent Post Op Complications Complications None Follow Up Care/Instructions Patient Instructions None needed. Anesthesiology Discharge Order Discharge Order Patient is doing well, no complaints, stable vital signs, no apparent adverse anesthesia problems. No complications reported per nursing. FAUSTO LOZANO CRNA Nov 29, 2020 11:02
--- NOTE | 2020-11-29 13:26 | OPERATIVE REPORT ---
DATE OF SERVICE: 11/29/2020 PREOPERATIVE DIAGNOSIS: Blood in stool, history of colon cancer. POSTOPERATIVE DIAGNOSES: Hiatal hernia, subcutaneous lipoma of the antrum, reflux esophagitis, colon polyps x4 and diverticulosis. PROCEDURES PERFORMED: EGD with biopsies, colonoscopy with snare polypectomy x4. SURGEON: Ken Gomes DO. ANESTHESIA: Per PHOTOGRAPHER APPRENTICE. ESTIMATED BLOOD LOSS: None. COMPLICATIONS: None. INDICATIONS FOR PROCEDURE: The patient is a 75-year-old male with blood in the stool and with history of colon cancer. He understands risks and benefits of the procedure, wishes to proceed. Consent was signed in the chart. DESCRIPTION OF PROCEDURE: The patient was taken to the endoscopy suite and placed in a left lateral recumbent position. Timeout was performed. Scope was inserted in the mouth, down the esophagus, stomach and into the duodenum without difficulty. No polyps, masses or ulcerations within the duodenum. Scope was slowly retracted from the stomach where it was further insufflated. There was appearance of a submucosal lipoma present in the antrum. Biopsy of the antrum was obtained. Scope was retroflexed noting a small hiatal hernia, no other pathology. Scope was returned to its normal position, slowly withdrawn to distal esophagus with changes of reflux esophagitis present. Biopsy of the GE junction was obtained. Scope was then slowly retracted back until completely removed, noting no other pathology. Digital rectal exam was performed. No palpable polyps, masses or ulcerations. Scope was inserted in the rectum, advanced all the way to cecum with minimal difficulty. No polyps, masses or ulcerations in the cecum. In the ascending colon just past the ileocecal valve, there was a large polyp, which had to be taken piecemeal using snare polypectomy. This was removed and obtained for pathology. Another small polyp was present right near which another snare polypectomy was performed. Scope was then continuously retracted back. No polyps, masses or ulcerations within the remainder of the ascending colon. In the transverse colon, another small polyp was present, which snare polypectomy was performed. Scope was then continuously and slowly retracted back through the descending and sigmoid colon without any other polyps, masses or ulcerations, noting some diverticulosis present. Once in the rectum, scope was retroflexed noting an anorectal polyp, which snare polypectomy was performed. Scope was returned to its normal position, slowly withdrawn until completely removed. The patient tolerated the procedure well without any complications and taken to the recovery room in a stable condition. RECOMMENDATIONS: The patient will have repeat colonoscopy in 6 to 12 months. We will also recommend starting some Pepcid to see if this controls any symptoms. Await biopsy results. Further recommendations pending biopsy results. Job ID: [id number] DocumentID: [id number] Dictated Date: 11/29/2020 09:08:31 Check Examiner Date: 11/29/2020 13:24:32 Dictated By: KEN GOMES DO
== END 2020-11-29 10:15 | disposition home or self-care (01) ==
LOC: ENDO 07:34
PROVIDERS: ATTEND Surgery
DX: K21.00 Gastro-esophageal reflux disease with esophagitis, without bleeding (principal); K29.50 Unspecified chronic gastritis without bleeding; D12.2 Benign neoplasm of ascending colon; D12.3 Benign neoplasm of transverse colon; D12.8 Benign neoplasm of rectum; K92.1 Melena; K44.9 Diaphragmatic hernia without obstruction or gangrene; K57.30 Diverticulosis of large intestine without perforation or abscess without bleeding; D17.39 Benign lipomatous neoplasm of skin and subcutaneous tissue of other sites; E78.5 Hyperlipidemia, unspecified; I11.0 Hypertensive heart disease with heart failure; I50.9 Heart failure, unspecified; I48.91 Unspecified atrial fibrillation; E11.9 Type 2 diabetes mellitus without complications; Z79.84 Long term (current) use of oral hypoglycemic drugs; Z87.891 Personal history of nicotine dependence; Z85.038 Personal history of other malignant neoplasm of large intestine; Z90.89 Acquired absence of other organs; Z90.49 Acquired absence of other specified parts of digestive tract; Z79.899 Other long term (current) drug therapy; Z83.3 Family history of diabetes mellitus; Z80.9 Family history of malignant neoplasm, unspecified
CPT/HCPCS: 88305

== ENCOUNTER → 2020-12-09 | Outpatient (CLI) | payer MEDICARE, MEDICAID ==
[~2020-12-09] MED LIST changes: +FAMO-119 PO
[2020-12-09 10:51] LABS: BILIRUBIN,TOTAL 1.5 MG/DL (0.1-1.0); CALCIUM 9.4 MG/DL (8.5-10.1); CREATININE SERUM 0.87 MG/DL (0.60-1.30); POTASSIUM 4.2 MMOL/L (3.6-5.0); TOTAL PROTEIN 7.2 GM/DL (6.4-8.2)
== END ==
LOC: LAB 09:43
PROVIDERS: ATTEND Family Medicine
DX: E11.65 Type 2 diabetes mellitus with hyperglycemia (principal)
CPT/HCPCS: 36415; 80053; 83036

== ENCOUNTER 2021-01-02 07:17 | Outpatient (CLI) | payer MEDICARE, MEDICAID ==
[~2021-01-02] VITALS: Ht 172.7 cm; Wt 93.2 kg
[2021-01-02] MEDS ORDERED: FAMO-119 PO (10:38)
[2021-01-02] MEDS ORDERED: AMLO-251 PO (10:38)
[2021-01-02] MEDS ORDERED: DONE10TA41 PO (10:38)
== END 2021-01-02 10:41 ==
LOC: PREOP 07:17
PROVIDERS: ATTEND Specialist
DX: Z01.818 Encounter for other preprocedural examination (principal)

== ENCOUNTER 2021-01-06 05:48 | Day surgery (SDC) | payer MEDICARE, MEDICAID ==
[~2021-01-06] VITALS: Ht 172 cm; Wt 93.2 kg
[2021-01-06] MEDS ORDERED: TIMOLOL MALEATE 0.5% 5 ML (TIMOPTIC) BTL OU PRN (06:15)
[2021-01-06] MEDS ORDERED: MOXIFLOXACIN OPHTH SOLN 5 MG/ML 0.3 ML SYRINGE OP ONE (06:15)
[2021-01-06] MEDS ORDERED: POVIDONE (BETADINE) OPHTH SOLN 5% 30 ML OP ONE (06:15)
[2021-01-06] MEDS ORDERED: LIDOCAINE PF 1% 2 ML VIAL IR PRN (06:15)
[2021-01-06 06:20] VITALS: BP 141/83
[2021-01-06] MEDS: TETRACAINE 0.5% OPHTH SOLN 4 ML BTL (SINGLE DOSE ONLY) OU PRN ×4 (06:24→06:40)
[2021-01-06] MEDS: PHENYLEPHRINE 10% OPHTH (NEO-SYN) 5 ML BTL OU SCH ×3 (06:30→06:40)
[2021-01-06] MEDS: TROPICAMIDE 1% OPH SOLN (MYDRIACYL) 15 ML BTL OP SCH ×3 (06:30→06:40)
[2021-01-06] MEDS ORDERED: MIDAZOLAM 2 MG/2 ML (VERSED) VIAL ONE (07:17)
--- NOTE | 2021-01-06 07:22 | Ophthalmologist Pre-Op Note ---
Pre-Operative Progress Note H&P Reviewed The H&P was reviewed, patient examined and no changes noted. Date H&P Reviewed: Jan 06, 2021 Time H&P Reviewed: 07:22 Pre-Op Dx Cataract, Left Eye EILEEN ZAYAS MD Jan 06, 2021 07:22
[2021-01-06] MEDS ORDERED: acetaZOLAMIDE ER 500 MG CAP (DIAMOX SEQUELS) PO ONE (07:30)
--- NOTE | 2021-01-06 07:37 | Ophthalmology Operative Report ---
Cataract removal/placement IOL PREOPERATIVE DIAGNOSIS: Cataract Left Eye POSTOPERATIVE DIAGNOSIS: Cataract Left Eye PROCEDURE: Cataract removal and placement of posterior chamber implant, left eye SURGEON: Tomás Zayas ANESTHESIA: Topical with sedation COMPLICATIONS: None ESTIMATED BLOOD LOSS: Minimal DESCRIPTION OF PROCEDURE: After proper informed consent was obtained, the patient, a 75 male, was taken to the Operating Room and the left eye was anesthetized with tetracaine. The left eye was then prepped and draped in the usual manner. A wire lid speculum was placed. A paracentesis was made at the left hand position. Preservative free lidocaine was injected into the anterior chamber followed by viscoelastic. A clear corneal incision was made in the temporal position. A capsulorrhexis was preformed and the central nuclear and cortical material were removed. The posterior capsule was polished and an Isra 21.5 AU00T0 was placed into the capsular bag. The residual viscoelastic was aspirated and balanced saline solution was injected into the anterior chamber. Moxifloxacin was injected into the anterior chamber. The wound was checked and found to be water tight. The patient tolerated the procedure well without complications. TOMÁS ZAYAS MD Jan 06, 2021 07:37
[2021-01-06 07:46] VITALS: BP 125/74
--- NOTE | 2021-01-06 13:50 | Anesthesia-General Post-Op ---
MAC Patient Condition Mental Status/LOC: Same as Preop Cardiovascular: Satisfactory Nausea/Vomiting: Absent Respiratory: Satisfactory Pain: Controlled Complications: Absent Post Op Complications Complications None Follow Up Care/Instructions Patient Instructions None needed. Anesthesiology Discharge Order Discharge Order Patient is doing well, no complaints, stable vital signs, no apparent adverse anesthesia problems. No complications reported per nursing. LEANNA FERNANDEZ CRNA Jan 06, 2021 13:50
== END 2021-01-06 07:47 | disposition home or self-care (01) ==
LOC: SDC 05:48
PROVIDERS: ATTEND Specialist
DX: E11.36 Type 2 diabetes mellitus with diabetic cataract (principal); H25.12 Age-related nuclear cataract, left eye; I11.9 Hypertensive heart disease without heart failure; Z79.84 Long term (current) use of oral hypoglycemic drugs; Z79.899 Other long term (current) drug therapy; Z79.01 Long term (current) use of anticoagulants; Z87.891 Personal history of nicotine dependence; Z98.890 Other specified postprocedural states
CPT/HCPCS: 66984; 82947; V2632

== ENCOUNTER 2021-01-20 06:10 | Day surgery (SDC) | payer MEDICARE, MEDICAID ==
[~2021-01-20] VITALS: Ht 172 cm; Wt 93.2 kg
[2021-01-20] MEDS ORDERED: MOXIFLOXACIN OPHTH SOLN 5 MG/ML 0.3 ML SYRINGE OP ONE (06:15)
[2021-01-20] MEDS ORDERED: LIDOCAINE PF 1% 2 ML VIAL IR PRN (06:15)
[2021-01-20] MEDS ORDERED: POVIDONE (BETADINE) OPHTH SOLN 5% 30 ML OP ONE (06:15)
[2021-01-20] MEDS ORDERED: TIMOLOL MALEATE 0.5% 5 ML (TIMOPTIC) BTL OU PRN (06:15)
[2021-01-20] MEDS: TETRACAINE 0.5% OPHTH SOLN 4 ML BTL (SINGLE DOSE ONLY) OU PRN ×4 (06:25→06:46)
[2021-01-20] MEDS: PHENYLEPHRINE 10% OPHTH (NEO-SYN) 5 ML BTL OU SCH ×3 (06:34→06:46)
[2021-01-20] MEDS: TROPICAMIDE 1% OPH SOLN (MYDRIACYL) 15 ML BTL OP SCH ×3 (06:34→06:47)
[2021-01-20 06:44] VITALS: BP 143/75
[2021-01-20] MEDS ORDERED: VASOPRESSIN INJECTION 20 UNIT/ML VIAL ONE (06:44)
[2021-01-20] MEDS ORDERED: MIDAZOLAM 2 MG/2 ML (VERSED) VIAL ONE (06:55)
--- NOTE | 2021-01-20 07:01 | Ophthalmologist Pre-Op Note ---
Pre-Operative Progress Note H&P Reviewed The H&P was reviewed, patient examined and no changes noted. Date H&P Reviewed: Jan 20, 2021 Time H&P Reviewed: 07:01 Pre-Op Dx Cataract, Right Eye EILEEN ZAYAS MD Jan 20, 2021 07:01
--- NOTE | 2021-01-20 07:17 | Ophthalmology Operative Report ---
Cataract removal/placement IOL PREOPERATIVE DIAGNOSIS: Cataract Right Eye POSTOPERATIVE DIAGNOSIS: Cataract Right Eye PROCEDURE: Cataract removal and placement of posterior chamber implant, right eye SURGEON: Tomás Zayas ANESTHESIA: Topical with sedation COMPLICATIONS: None ESTIMATED BLOOD LOSS: Minimal DESCRIPTION OF PROCEDURE: After proper informed consent was obtained, the patient, a 75 male, was taken to the Operating Room and the right eye was anesthetized with tetracaine. The right eye was then prepped and draped in the usual manner. A wire lid speculum was placed. A paracentesis was made at the left hand position. Preservative free lidocaine was injected into the anterior chamber followed by viscoelastic. A clear corneal incision was made in the temporal position. A capsulorrhexis was preformed and the central nuclear and cortical material were removed. The posterior capsule was polished and Isra 21.0 AU00T0 IOL was placed into the capsular bag. The residual viscoelastic was aspirated and balanced saline solution was injected into the anterior chamber. Moxifloxacin was injected into the anterior chamber. The wound was checked and found to be water tight. The patient tolerated the procedure well without complications. TOMÁS ZAYAS MD Jan 20, 2021 07:17
[2021-01-20 07:21] VITALS: BP 124/82
[2021-01-20] MEDS ORDERED: acetaZOLAMIDE ER 500 MG CAP (DIAMOX SEQUELS) PO ONE (07:30)
--- NOTE | 2021-01-20 13:57 | Anesthesia-General Post-Op ---
MAC Patient Condition Mental Status/LOC: Same as Preop Cardiovascular: Satisfactory Nausea/Vomiting: Absent Respiratory: Satisfactory Pain: Controlled Complications: Absent Post Op Complications Complications None Follow Up Care/Instructions Patient Instructions None needed. Anesthesiology Discharge Order Discharge Order Patient was seen this morning after the procedure and he was doing well, no complaints, stable vital signs, no apparent adverse anesthesia problems. ABI REYEZ DO Jan 20, 2021 13:57
[2021-01-25] MEDS ORDERED: LISI40TA9 PO (14:28)
[2021-01-25] MEDS ORDERED: MAGN250T35 PO (14:28)
[2021-01-25] MEDS ORDERED: POTA-51 PO (14:28)
[2021-01-25] MEDS ORDERED: CARB1TAB41 PO (14:28)
[2021-01-25] MEDS ORDERED: AMLO-250 PO (14:28)
== END 2021-01-20 07:23 ==
LOC: SDC 06:10
PROVIDERS: ATTEND Specialist
DX: E11.36 Type 2 diabetes mellitus with diabetic cataract (principal); H25.11 Age-related nuclear cataract, right eye; I11.9 Hypertensive heart disease without heart failure; K21.9 Gastro-esophageal reflux disease without esophagitis; Z79.899 Other long term (current) drug therapy; Z87.891 Personal history of nicotine dependence; Z80.9 Family history of malignant neoplasm, unspecified; Z85.828 Personal history of other malignant neoplasm of skin; Z83.3 Family history of diabetes mellitus
CPT/HCPCS: 66984; 82947; V2632

== ENCOUNTER → 2021-01-20 | Outpatient (CLI) | payer MEDICARE, MEDICAID ==
[2021-01-20 10:46] LABS: CHOLESTEROL 113 MG/DL (< 200); HDL CHOLESTEROL 33 MG/DL (40-60); TRIGLYCERIDES 145 MG/DL (<150); VLDL CHOLESTEROL 29 MG/DL (5-40)
== END ==
LOC: SDC 10:20
PROVIDERS: ATTEND Family Medicine
DX: E78.5 Hyperlipidemia, unspecified (principal)
CPT/HCPCS: 36415; 80061

== ENCOUNTER 2021-01-25 15:00 | Day surgery (SDC) | payer MEDICARE, MEDICAID ==
[~2021-01-25] VITALS: Ht 173 cm; Wt 93.0 kg
[2021-01-25 13:46] VITALS: BP 171/103
[2021-01-25 14:01] LABS: HEMATOCRIT 44 % (40-54); HEMOGLOBIN 15.5 g/dL (13.3-17.7); MEAN CORPUSCULAR HEMOGLOBIN 31 pg (25-34); MEAN CORPUSCULAR HGB CONC 36 g/dL (32-36); MEAN CORPUSCULAR VOLUME 88 fL (80-99); MEAN PLATELET VOLUME 9.6 fL (9.0-12.2); PLATELET COUNT 137 10^3/uL (130-400); WHITE BLOOD COUNT 5.7 10^3/uL (4.3-11.0)
--- NOTE | 2021-01-25 14:06 | Diagnostic Imaging Report ---
INDICATION: Chest pain. Coronary artery disease. History of hypertension and atrial fibrillation COMPARISON: 03/26/2020 FINDINGS: Single frontal view of the chest demonstrates borderline enlarged cardiac silhouette. Pulmonary vasculature however is within normal limits. The lungs are well aerated and clear. No large pleural effusion or pneumothorax is seen. The visualized osseous structures show no acute abnormalities. IMPRESSION: 1. Borderline enlarged cardiac silhouette, which may be exaggerated by portable technique. There is otherwise no evidence of failure or focal infiltrate. Dictated by: Dictated on workstation # [id number]
[2021-01-25 14:11] LABS: INR 1.3 (0.8-1.4); PROTHROMBIN TIME PATIENT 16.1 SEC (12.2-14.7)
[2021-01-25 14:20] LABS: ALBUMIN 3.9 GM/DL (3.2-4.5); BILIRUBIN,TOTAL 1.9 MG/DL (0.1-1.0); CALCIUM 9.1 MG/DL (8.5-10.1); CREATININE SERUM 0.72 MG/DL (0.60-1.30); POTASSIUM 3.7 MMOL/L (3.6-5.0); TOTAL PROTEIN 6.8 GM/DL (6.4-8.2)
[~2021-01-25 15:00] MED LIST changes: +AMLO-250 PO; +CARB1TAB41 PO; +HEParin (CATH LAB) 2,000 ML IV ONE; +LIDOCAINE 1% INJ 20 ML 20 ML VIAL ONE; +LISI40TA9 PO; +MAGN250T35 PO; +MIDAZOLAM 5 MG/5 ML (VERSED) VIAL ONE; +NS IV 1000 ML 1,000 ML IV SCH; +NS IV 1000 ML 1,000 ML ONE; +POTA-51 PO; +fentaNYL INJ 100 MCG/2 ML AMP ONE
--- NOTE | 2021-01-25 15:44 | Discharge Inst-Post CATH ---
Discharge Inst-CATH/EP Problems Reviewed?: Yes Post Cardiac Cath/EP D/C Inst Follow Up/Plan Appointment with Dr. Fung's office in 4 weeks <b>CARDIAC CATH/EP PROCEDURE DISCHARGE INSTRUCTIONS</b> ACTIVITY * Go Home directly and rest. * Limit activity of the leg (or wrist if it was used) for 7 days including aerobics, swimming, jogging, bicycling, etc. * Restrict stair-climbing for 7 days if possible, if not, climb up with your non-cath leg, then bring together on the same step. * Avoid lifting, pushing, pulling or excessive movement of the affected extremity for 7 days. * Customary sexual activity may be resumed after 2 days-use caution not to use a position that strains or causes pain to the affected extremity. * No driving for 24 hours. * NO SMOKING. * Avoid straining for bowel movements for 7 days. * Gentle walking on level ground is allowed. * Returning to work will depend on the type of procedure and the results. Your doctor will discuss this with you. CALL YOUR DOCTOR FOR ANY OF THE FOLLOWING: *If bleeding from the puncture site occurs- Apply gentle pressure to site with clean cloth and call your doctor or EMS. * If a knot or lump forms under the skin, increases in size, or causes pain. * If bruising appears to be worsening or moving further down your leg instead of disappearing. * Temperature above 101 F. CARE OF YOUR GROIN INCISION; * Bruising or purple discoloration of the skin near the puncture site is common. * You may shower only, no bathtub bathing for 5 days. Be careful to avoid slipping as your leg may feel stiff. * If a closure device was used on your femoral artery, please see the attached guide regarding care of the device and your leg. * Leave dressing on FOR 24 hours. CARE OF YOUR WRIST INCISION; * Bruising or purple discoloration of the skin near the puncture site is common. * You may shower. * DO NOT submerge wrist. * Leave dressing on FOR 24 hours. SKYLAR FUNG MD Jan 25, 2021 15:44
[2021-01-25] MEDS ORDERED: PATIENT MAY USE OWN MEDS, ALL PO SCH (15:45)
[2021-01-25] MEDS ORDERED: NS IV 1000 ML 1,000 ML IV SCH (15:45)
--- NOTE | 2021-01-25 15:50 | Cardiac Cath Report ---
Cardiac Cath Report Physician (s)/Nuclear Medical Tech (s) Physician SKYLAR CAMPOS MD Pre-Procedure Diagnosis Pre-Procedure Diagnosis: Coronary artery disease Post-Procedure Note Procedure Start Date: Jan 25, 2021 Name of Procedure: Left heart catheterization Findings/Procedure Note PROCEDURE NOTE: 75-year-old gentleman with history of coronary artery disease multivessel disease, hypertension hyperlipidemia, had an abnormal stress test scheduled for cardiac catheterization possible PTCA. After explaining the procedure to the patient, all pros and cons were explained, all questions were answered. The patient signed the consent and then he was placed on the cardiac catheterization laboratory. Groin was prepped SL fashion local anesthesia was used. Sheath placed in the right femoral artery. Yaneth right and left catheter were used to access the coronary system. Pigtail was used to access the left ventricular cavity. Left ventriculogram was not done At the end of the procedure the sheath was removed. Closure device was deployed FINDINGS: Hemodynamics LV 132/16, end-diastolic pressure of 16 Aorta 138/81 mean of 101 ANATOMY: Left Main has no obstructive disease Left Anterior Descending has moderate stenosis proximally, heavily calcified with moderate severe stenosis distally and in the first diagonal artery which is very small artery Left Circumflex is calcified artery with severe stenosis distally, did not change compared to the study of 2016 Right Coronary Artery is dominant artery with moderate stenosis distally 50%, the right PDA has severe stenosis, very small artery not amendable to intervention LV Gram was not done, pressure was measured CONCLUSION: 1. Calcified coronary system with severe stenosis at the distal right PDA distal LAD mid diagonal artery and distal circumflex artery that has been present, these arteries are very small distally less than 2 mm in diameter. 2. Moderate stenosis at the distal right coronary artery that did not change compared to the study of 2016 3. Calcified left coronary system with mild to moderate disease nonobstructive disease 4. Normal left ventricular end-diastolic pressure DISCUSSION AND RECOMMENDATION: Continue with medical therapy, no intervention is warranted Anesthesia Type: Conscious Sedation Estimated blood loss (mL): 15 ml Contrast Amount: 40 ml Total Radiation Dose: 673 mGy Post-Procedure Diagnosis Post-operative diagnosis: Chest pain Coronary artery disease Hypertension Hyperlipidemia SKYLAR CAMPOS MD Jan 25, 2021 15:50
--- NOTE | 2021-01-25 15:54 | Conscious Sedation/ASA ---
Conscious Sedation Pre-Proced Time 13:00 ASA Score 3 For ASA 3 and 4: Consider anesthesia and medical clearance. Also, for patients with a history of failed moderate sedation consider anesthesia. Airway Lungs Heart ASA score ASA 1: a normal healthy patient ASA 2: a patient with a mild systemic disease (mid diabetes, controlled hypertension, obesity x ASA 3: a patient with a severe systemic disease that limits activity (angina, COPD, prior Myocardial infarction) ASA 4: a patient with an incapacitating disease that is a constant threat to life (CHF, renal failure) ASA 5: a moribund patient not expected to survive 24 hrs. (ruptured aneurysm) ASA 6: a declared brain- patient whose organs are being harvested. For emergent operations, add the letter E after the classification Mallampati Classification Grade 3 Sedation Plan Analgesia, Amnesia, Plan communicated to team members, Discussed options with patient/fam, Discussed risks with patient/fam The patient is an appropriate candidate to undergo the planned procedure, sedation, and anesthesia. The patient immediately re-assessed prior to indication. SKYLAR CAMPOS MD Jan 25, 2021 15:54
[2021-01-25 16:01] VITALS: BP 136/104
[2021-01-25 20:00] VITALS: BP 152/95
== END 2021-01-25 20:13 ==
LOC: CATH 15:00 → CSD 15:55 → CATH 20:13
PROVIDERS: ATTEND Internal Medicine Cardiovascular Disease
DX: I25.118 Atherosclerotic heart disease of native coronary artery with other forms of angina pectoris (principal); I48.19 Other persistent atrial fibrillation; I50.9 Heart failure, unspecified; I11.0 Hypertensive heart disease with heart failure; E78.5 Hyperlipidemia, unspecified; E11.9 Type 2 diabetes mellitus without complications; F41.9 Anxiety disorder, unspecified; F32.9 Major depressive disorder, single episode, unspecified; Z79.899 Other long term (current) drug therapy; Z79.84 Long term (current) use of oral hypoglycemic drugs; Z79.82 Long term (current) use of aspirin; Z87.891 Personal history of nicotine dependence; Z90.89 Acquired absence of other organs; Z90.49 Acquired absence of other specified parts of digestive tract; Z83.3 Family history of diabetes mellitus; Z80.9 Family history of malignant neoplasm, unspecified
CPT/HCPCS: 71045; 80053; 80061; 85027; 85610; 85730; 87081; 93458; C1760; C1894; 36415

== ENCOUNTER → 2021-03-15 | Outpatient (CLI) | payer MEDICARE, MEDICAID ==
[~2021-03-15] MED LIST changes: -HEParin (CATH LAB) 2,000 ML IV ONE; -LIDOCAINE 1% INJ 20 ML 20 ML VIAL ONE; -MIDAZOLAM 5 MG/5 ML (VERSED) VIAL ONE; -NS IV 1000 ML 1,000 ML IV SCH; -NS IV 1000 ML 1,000 ML ONE; -fentaNYL INJ 100 MCG/2 ML AMP ONE
== END ==
LOC: LABNPT 06:34
PROVIDERS: ATTEND Internal Medicine Cardiovascular Disease
DX: Z01.812 Encounter for preprocedural laboratory examination (principal); Z20.822 Contact with and (suspected) exposure to COVID-19
CPT/HCPCS: 87635

== ENCOUNTER 2021-03-17 19:34 | Outpatient (CLI) | payer MEDICARE, MEDICAID | END 2021-03-18 07:53 | disposition home or self-care (01) | LOC: SLEEP 19:34 | PROVIDERS: ATTEND Internal Medicine Cardiovascular Disease | DX: G47.33 Obstructive sleep apnea (adult) (pediatric) (principal) | CPT/HCPCS: 95811 ==

== ENCOUNTER → 2021-03-29 | Outpatient (CLI) | payer MEDICARE, MEDICAID ==
--- NOTE | 2021-03-29 09:17 | Diagnostic Imaging Report ---
EXAMINATION: CT head without contrast. TECHNIQUE: Multiple contiguous axial images were obtained through the brain without the use of intravenous contrast. All CT scans use one or more of the following dose optimizing techniques: automated exposure control, MA and/or KvP adjustment based on patient size and exam type or iterative reconstruction. HISTORY: Vascular dementia with worsening confusion. COMPARISON: 10/19/2017. FINDINGS: Mild diffuse cerebral volume loss with proportional enlargement of the ventricles and sulci. No abnormal attenuation of brain parenchyma is present. No acute intracranial hemorrhage or abnormal extra-axial fluid collections are present. Calcification of the intracranial ICAs. No hyperdense vessel. The calvarium is intact. The mastoid air cells are clear. The visualized paranasal sinuses are clear. Surgical changes from bilateral cataract repair. IMPRESSION: 1. No acute intracranial abnormality. 2. Mild volume loss. Dictated by: Dictated on workstation # [id number]
[2021-03-29 10:35] LABS: ALBUMIN 4.1 GM/DL (3.2-4.5); BILIRUBIN,TOTAL 1.6 MG/DL (0.1-1.0); CALCIUM 9.6 MG/DL (8.5-10.1); CREATININE SERUM 0.82 MG/DL (0.60-1.30); FREE T4 (FREE THYROXINE) 0.91 NG/DL (0.70-1.48); POTASSIUM 4.5 MMOL/L (3.6-5.0); TOTAL PROTEIN 7.3 GM/DL (6.4-8.2); URIC ACID 3.5 MG/DL (2.6-7.2)
== END ==
LOC: RAD 08:45
PROVIDERS: ATTEND Family Medicine
DX: F01.51 Vascular dementia, unspecified severity, with behavioral disturbance (principal); E11.9 Type 2 diabetes mellitus without complications; I10 Essential (primary) hypertension; M10.9 Gout, unspecified
CPT/HCPCS: 36415; 70450; 80053; 83036; 84439; 84443; 84550; 85025

== ENCOUNTER → 2021-04-18 | Outpatient (CLI) | payer MEDICARE, MEDICAID | LOC: LABNPT 08:32 | PROVIDERS: ATTEND Otolaryngology | DX: Z53.9 Procedure and treatment not carried out, unspecified reason (principal) ==

== ENCOUNTER 2021-06-12 05:57 | Outpatient (CLI) | payer MEDICARE, MEDICAID ==
[~2021-06-12] VITALS: Ht 172.7 cm; Wt 93.2 kg
[2021-06-12] MEDS ORDERED: SEMA1PEN3 SQ (14:14)
== END 2021-06-12 14:43 ==
LOC: PREOP 05:57
PROVIDERS: ATTEND Surgery
DX: Z01.818 Encounter for other preprocedural examination (principal)

== ENCOUNTER 2021-06-20 10:40 | Day surgery (SDC) | payer MEDICARE, MEDICAID ==
[~2021-06-20] VITALS: Ht 172.7 cm; Wt 93.2 kg
[~2021-06-20 10:40] MED LIST changes: +SEMA1PEN3 SQ
[2021-06-20] MEDS ORDERED: LACTATED RINGERS 1,000 ML IV STA ×2 (10:49→12:19)
[2021-06-20] MEDS ORDERED: LACTATED RINGERS 1,000 ML IV ONE (10:52)
[2021-06-20] MEDS ORDERED: HURRICAINE EXT TUBE (BENZOCAINE) XX PRN (11:00)
--- NOTE | 2021-06-20 11:16 | Progress Note-Pre Operative ---
Pre-Operative Progress Note H&P Reviewed The H&P was reviewed, patient examined and no changes noted. Date Seen by Provider: Jun 20, 2021 Time Seen by Provider: 11:16 Date H&P Reviewed: Jun 20, 2021 Time H&P Reviewed: :16 Pre-Operative Diagnosis: blood in stool, hx polyps KEN ACOSTA DO Jun 20, 2021 11:16
[2021-06-20 12:33] VITALS: BP 149/98
[2021-06-20] MEDS ORDERED: PROPOFOL INJECTION 50 ML IV ONE (13:58)
[2021-06-20 14:25] VITALS: BP 127/67
--- NOTE | 2021-06-20 14:26 | Progress Note-Post Operative ---
Post-Operative Progess Note Surgeon (s)/Paperboard Boxes Estimator (s) Surgeon KEN ACOSTA DO Paperboard Boxes Estimator: N/A Pre-Operative Diagnosis hx polyps Post-Operative Diagnosis Colon polyps; diverticulosis Procedure & Operative Findings Date of Procedure 06/20/21 Procedure Performed/Findings Colonoscopy w/ hot bx polypectomy x3 Anesthesia Type per BANK CREDIT CARD COLLECTION CLERK Estimated Blood Loss Estimated blood loss (mL): none Specimens/Packing Specimens Removed descending 1x, sigmoid 1x, rectal 1x KEN ACOSTA DO Jun 20, 2021 14:26
--- NOTE | 2021-06-20 14:27 | Discharge Inst-Simple/Standard ---
Discharge Inst-Standard Patient Instructions/Follow Up Plan of Care/Instructions/FU: 2 weeks corie Activity as Tolerated: Yes Discharge Diet: Regular Diet KEN ACOSTA DO Jun 20, 2021 14:27
[2021-06-20 14:30] VITALS: BP 112/76
[2021-06-20 14:33] VITALS: BP 122/73
[2021-06-20 14:35] VITALS: BP 122/73
--- NOTE | 2021-06-20 14:56 | Anesthesia-General Post-Op ---
MAC Patient Condition Mental Status/LOC: Same as Preop Cardiovascular: Satisfactory Nausea/Vomiting: Absent Respiratory: Satisfactory Pain: Controlled Complications: Absent Post Op Complications Complications None Follow Up Care/Instructions Patient Instructions None needed. Anesthesiology Discharge Order Discharge Order Patient is doing well, no complaints, stable vital signs, no apparent adverse anesthesia problems. No complications reported per nursing. JANET OLGUIN CRNA Jun 20, 2021 14:56
[2021-06-20 15:02] VITALS: BP 153/85
--- NOTE | 2021-06-20 19:20 | OPERATIVE REPORT ---
DATE OF SERVICE: 06/20/2021 PREOPERATIVE DIAGNOSIS: History of polyps. POSTOPERATIVE DIAGNOSES: Colon polyps, diverticulosis. PROCEDURE: Colonoscopy with hot biopsy polypectomy x3. SURGEON: Ken Gomes DO ANESTHESIA: Per [employer] SALES REPRESENTATIVE. ESTIMATED BLOOD LOSS: None. COMPLICATIONS: None. INDICATIONS: The patient is a 76-year-old male needing colonoscopy due to history of polyps. He understands risks and benefits of procedure and wished to proceed. Consent was signed in the chart. DESCRIPTION OF PROCEDURE: The patient was taken to the endoscopy suite, placed in left lateral recumbent position. Timeout was performed. Digital rectal exam was performed. No palpable polyps, masses or ulcerations. Scope was inserted in the rectum and advanced all the way to cecum with minimal difficulty. Prep was adequate. Scope was then slowly retracted back. No polyps, masses or ulcerations within the cecum, ascending, transverse colon. In the descending colon, small polyp was present, which hot biopsy polypectomy was performed. Scope was then continuously retracted in the sigmoid colon, another small polyp was present, which hot biopsy polypectomy was performed. Scope was then continuously retracted back in the rectum. In the sigmoid colon, also noting some diverticulosis present. Once in the rectum, another small polyp was present, which hot biopsy polypectomy was performed. Scope was retroflexed noting no other pathology except for some slight internal hemorrhoids. Scope was returned to its normal position, slowly withdrawn until completely removed. The patient tolerated procedure well without any complications and taken to recovery room in stable condition. RECOMMENDATIONS: The patient will need repeat colonoscopy on an as needed basis. He will follow up in the office to discuss pathology results. Recommend high fiber diet due to diverticulosis. Job ID: [id number] DocumentID: [id number] Dictated Date: 06/20/2021 14:30:03 Button Tufter Date: 06/20/2021 19:19:40 Dictated By: KEN GOMES DO
== END 2021-06-20 15:20 | disposition home or self-care (01) ==
LOC: ENDO 10:40
PROVIDERS: ATTEND Surgery
DX: Z12.11 Encounter for screening for malignant neoplasm of colon (principal); K63.5 Polyp of colon; K62.1 Rectal polyp; K57.30 Diverticulosis of large intestine without perforation or abscess without bleeding; E11.9 Type 2 diabetes mellitus without complications; I25.10 Atherosclerotic heart disease of native coronary artery without angina pectoris; I11.0 Hypertensive heart disease with heart failure; I50.9 Heart failure, unspecified; I48.20 Chronic atrial fibrillation, unspecified; F32.A Depression, unspecified; F41.9 Anxiety disorder, unspecified; F03.90 Unspecified dementia, unspecified severity, without behavioral disturbance, psychotic disturbance, mood disturbance, and anxiety; Z87.891 Personal history of nicotine dependence; Z79.84 Long term (current) use of oral hypoglycemic drugs; Z79.01 Long term (current) use of anticoagulants; Z79.899 Other long term (current) drug therapy
CPT/HCPCS: 82947

== ENCOUNTER → 2021-09-06 | Outpatient (CLI) | payer MEDICARE, MEDICAID | LOC: CARD 09:00 | PROVIDERS: ATTEND Physician Assistant | DX: I11.9 Hypertensive heart disease without heart failure (principal); I36.1 Nonrheumatic tricuspid (valve) insufficiency | CPT/HCPCS: 93306 ==

== ENCOUNTER → 2021-09-20 | Outpatient (CLI) | payer MEDICARE, MEDICAID ==
[2021-09-20 10:37] LABS: ALANINE AMINOTRANSFERASE < 6 U/L (0-55); ALBUMIN 4.4 GM/DL (3.2-4.5); ALKALINE PHOSPHATASE 74 U/L (40-136); BILIRUBIN,TOTAL 1.6 MG/DL (0.1-1.0); BUN/CREATININE RATIO 19; CALCIUM 9.6 MG/DL (8.5-10.1); CARBON DIOXIDE 22 MMOL/L (21-32); CHLORIDE 107 MMOL/L (98-107); GFR ESTIMATED 91; GLUCOSE 145 MG/DL (70-105); POTASSIUM 3.9 MMOL/L (3.6-5.0); SODIUM 141 MMOL/L (135-145); TOTAL PROTEIN 7.5 GM/DL (6.4-8.2)
== END ==
LOC: LAB 09:49
PROVIDERS: ATTEND Family Medicine
DX: E11.9 Type 2 diabetes mellitus without complications (principal)
CPT/HCPCS: 36415; 80053; 83036

== ENCOUNTER 2021-10-06 10:36 | Emergency (ER) | payer MEDICARE, MEDICAID ==
[~2021-10-06] VITALS: Ht 172.7 cm; Wt 80.0 kg
--- NOTE | 2021-10-06 10:51 | ED Upper Extremity ---
General Chief Complaint: Upper Extremity Stated Complaint: R SHOULDER PAIN Source: patient Exam Limitations: no limitations History of Present Illness Date Seen by Provider: Oct 06, 2021 Time Seen by Provider: 10:40 Initial Comments 76-year-old male with past medical history of CAD with stenting, hypertension, hyperlipidemia, diabetes, A. fib on blood thinners coming in due to right shoulder pain. Is been constant, going on for 2 days, starts in the right shou lder, goes down the arm slightly. It is much worse with movement, better with rest. He took Tylenol which helped a little bit. He denies any chest pain, shortness of breath, abdominal pain, nausea, vomiting, diarrhea, focal weakness or numbness, fever, or any other concerns. He says this does not feel cardiac in nature to him and feels musculoskeletal. He denies any falls or trauma. Allergies and Home Medications Allergies Coded Allergies: Juan Known Allergies (Unverified Allergy, Mild, 09/19/17) Patient Home Medication List Home Medication List Reviewed: Yes Acetaminophen (Tylenol Extra Strength) 500 Mg Tablet, 1,000 MG PO BID PRN for PAIN-MILD, (Reported) Entered as Reported by: SAL IGLESIAS on 09/12/15 0957 Allopurinol (Allopurinol) 100 Mg Tablet, 100 MG PO DAILY, (Reported) Entered as Reported by: SALONI TAYLOR on 05/08/16 1607 Amlodipine Besylate (Amlodipine Besylate) 5 Mg Tablet, 5 MG PO DAILY, (Reported) Entered as Reported by: LUIS ALBERTO ENGLISH on 01/25/21 1428 Atorvastatin Calcium (Atorvastatin Calcium) 10 Mg Tablet, 10 MG PO DAILY, (Reported) Entered as Reported by: SAL IGLESIAS on 10/07/17 1053 Carbidopa/Levodopa (Carbidopa-Levo ER 50-200 Tab) 1 Each Tablet.er, 1 EACH PO BID, (Reported) Entered as Reported by: LUIS ALBERTO ENGLISH on 01/25/21 1428 Cetirizine HCl (Cetirizine HCl) 10 Mg Tablet, 10 MG PO DAILY, (Reported) Entered as Reported by: LUIS ALBERTO ENGLISH on 03/28/20 1428 Donepezil HCl (Donepezil HCl) 10 Mg Tablet, 10 MG PO HS, (Reported) Entered as Reported by: CHARISSA MCKEON on 01/02/21 1038 Escitalopram Oxalate (Escitalopram Oxalate) 20 Mg Tablet, 20 MG PO DAILY, (Reported) Entered as Reported by: RADHA HERNANDEZ on 09/16/19 1351 Furosemide (Furosemide) 20 Mg Tablet, 20 MG PO DAILY, (Reported) Entered as Reported by: LUIS ALBERTO ENGLISH on 03/28/20 1428 Glimepiride (Glimepiride) 4 Mg Tablet, 4 MG PO BID, (Reported) Entered as Reported by: RADHA HERNANDEZ on 09/16/19 1351 Lisinopril (Lisinopril) 40 Mg Tablet, 40 MG PO DAILY, (Reported) Entered as Reported by: LUIS ALBERTO ENGLISH on 01/25/21 1428 Metoprolol Tartrate (Metoprolol Tartrate) 50 Mg Tablet, 50 MG PO BID, (Reported) Entered as Reported by: RADHA HERNANDEZ on 09/16/19 1351 Potassium Chloride (Potassium Chloride) 20 Meq Tablet.er, 20 MEQ PO DAILY, (Reported) Entered as Reported by: LUIS ALBERTO ENGLISH on 01/25/21 1428 Rivaroxaban (Xarelto) 20 Mg Tablet, 20 MG PO HS, (Reported) Entered as Reported by: LUIS ALBERTO ENGLISH on 03/28/20 1428 Semaglutide (Ozempic) 1 Mg/0.75 Ml Pen.injctr, 1 MG SQ DAILY, (Reported) Entered as Reported by: DELANO SANTOS on 06/12/21 1414 Review of Systems Constitutional: No chills, No fever EENTM: No blurred vision Respiratory: No cough, No short of breath Cardiovascular: No chest pain Gastrointestinal: No abdominal pain Genitourinary: no symptoms reported Musculoskeletal: joint pain Skin: no symptoms reported Psychiatric/Neurological: No Symptoms Reported All Other Systems Reviewed Negative Unless Noted: Yes Past Fqnibqj-Lgvzkl-Egecnd Hx Patient Social History Tobacco Use?: No Immunizations Up To Date Tetanus Booster (TDap): Less than 5yrs PED Vaccines UTD: Yes Seasonal Allergies Seasonal Allergies: Yes (POLLEN ) Past Medical History Surgeries: Yes (HERNIA; HEMORRHOIDS;EYE MUSCLE SURGERY;SKIN GRAFT;CARDIAC CATH- ANGIOPLASTY ) Gallbladder Respiratory: No (pt states he has difficulty sleeping lying down, prefers to sleep upright) Currently Using CPAP: No Currently Using BIPAP: No Cardiac: Yes (CARDIAC CATHS--ANGIOPLASTY X 2--LAST CATH 2017-NO INTERVENTION;CHF) Atrial Fibrillation, High Cholesterol, Hypertension Neurological: No Dementia Reproductive Disorders: No Sexually Transmitted Disease: No HIV/AIDS: No Genitourinary: Yes Benign Prostatic Hyperpl Gastrointestinal: Yes Polyps Musculoskeletal: Yes Degenerate Disk Disease, Arthritis, Chronic Back Pain, Gout Endocrine: Yes Diabetes, Non-Insulin dep HEENT: Yes Cataract Loss of Vision: Denies Hearing Impairment: Hard of Hearing Cancer: Yes Skin Did You Recieve Any Treatments: Yes What Type of Treatment Did You: Surgical Intervention Psychosocial: Yes Anxiety, Depression Integumentary: Yes (skin graft to left graham, BASAL CELL CARCINOMAS *10) Blood Disorders: No Adverse Reaction/Blood Tranf: No (N/A) Family Medical History Cardiovascular disease 19 FATHER Hypertension 19 FATHER No Pertinent Family Hx Physical Exam Vital Signs Vital Signs - First Documented 10/06/21 10:47 Temp 36.6 Pulse 80 Resp 18 B/P (MAP) 136/78 (97) O2 Delivery Room Air Capillary Refill : Height, Weight, BMI Height: 5'8.00" Weight: 207lbs. 0.0oz. 93.530973rm; 31.24 BMI Method:Stated General Appearance: WD/WN, no apparent distress HEENT: PERRL/EOMI, normal ENT inspection, pharynx normal Neck: non-tender, full range of motion, supple, normal inspection Cardiovascular: no edema, no murmur, irregularly irregular Respiratory: chest non-tender, lungs clear, normal breath sounds, no respiratory distress, no accessory muscle use Gastrointestinal: normal bowel sounds, non tender, soft; No distended, No guarding, No rebound Back: normal inspection, no CVA tenderness, no vertebral tenderness Shoulder: non-tender, no evidence of injury, limited ROM (active and passive, normal distal pulses and sensation, normal motor exam distal) Elbow/Forearm: normal inspection, non-tender, no evidence of injury, normal ROM Wrist: Yes normal inspection, Yes non-tender, Yes no evidence of injury, Yes normal ROM Neurologic/Psychiatric: no motor/sensory deficits, alert, normal mood/affect Skin: normal color, warm/dry Lymphatic: no adenopathy Progress/Results/Core Measures Results/Orders My Orders Orders - DAGMAR SPENCE MD Shoulder, Right, 3 Views (10/06/21 10:47) Vital Signs/I&O 10/06/21 10:47 Temp 36.6 Pulse 80 Resp 18 B/P (MAP) 136/78 (97) O2 Delivery Room Air Progress Progress Note : Progress Note 76-year-old male with above history coming in due to right shoulder pain. ABCs were intact and vitals were stable on presentation. Physical exam with decreased range of motion passive and active of the right shoulder and this causes pain that recreates his exact symptoms. His rotator cuff is weak with almost no strength in his supraspinatus. This would be consistent with a tear. X-ray ordered and interpreted by me showing arthritis in the glenohumeral joint as well as the AC joint. He also has a high riding humerus consistent with rotator cuff pathology. Discussed this with the patient, we will have him follow-up with orthopedics. I believe he is stable for discharge with outpatient follow-up. He was sent home with strict return precautions. Diagnostic Imaging Diagonstic Imaging: Xray (right shoulder) Comments [facility]. [place], [place] NAME: [facility] REC#: [id number] PT STATUS: REG ER : 1945 PHYSICIAN: DAGMAR SPENCE MD ADMIT DATE: 10/06/21/ER Draft Date of Exam:10/06/21 SHOULDER, RIGHT, 3 VIEWS INDICATION: Right shoulder pain AP, oblique, and transscapular views of the right shoulder are obtained. No fracture or acute bony abnormality seen. Glenohumeral joint and AC joint show degenerative findings with osteophyte formation. The humeral head is high riding in the glenoid fossa, suggesting rotator cuff pathology. IMPRESSION: No acute fracture or dislocation. Underlying degenerative changes with findings suggestive of rotator cuff pathology. Dictated on workstation # [id number] Dict: 10/06/21 1123 Trans: 10/06/21 1128 [facility] [id number] Interpreted by: LESLIE KOHLER MD Electronically signed by: Departure Impression Primary Impression: Arthritis of right shoulder region Additional Impression: Rotator cuff arthropathy of right shoulder Disposition: 01 HOME, SELF-CARE Condition: Stable Departure-Patient Inst. Decision time for Depature: 11:38 Referrals: ANA RAMESH DO (PCP/Family) Primary Care Physician MIKE MOORE MD Patient Instructions: Osteoarthritis (DC), Rotator Cuff Injury (DC) Add. Discharge Instructions: You have arthritis in your right shoulder and a chronic rotator cuff tear. I recommend following up with Dr. Moore who can assist with these findings. He can offer things such as injections, and sometimes surgery. Take Tylenol as needed for pain. Scripts Hydrocodone/Acetaminophen (Hydrocodone-Acetamin 5-325 mg) 5 Mg-325 Mg Tablet 1 TAB PO HS PRN for PAIN-MODERATE (5-7) for 5 Days, #5 TAB Prov: DAGMAR SPENCE MD 10/06/21 DAGMAR SPENCE MD Oct 06, 2021 10:51
--- NOTE | 2021-10-06 11:30 | Diagnostic Imaging Report ---
INDICATION: Right shoulder pain AP, oblique, and transscapular views of the right shoulder are obtained. No fracture or acute bony abnormality seen. Glenohumeral joint and AC joint show degenerative findings with osteophyte formation. The humeral head is high riding in the glenoid fossa, suggesting rotator cuff pathology. IMPRESSION: No acute fracture or dislocation. Underlying degenerative changes with findings suggestive of rotator cuff pathology. Dictated by: Dictated on workstation # [id number]
[2021-10-06] MEDS ORDERED: ACHD5005 PO (11:40)
[2021-10-06 11:43] VITALS: BP 133/71
== END 2021-10-06 11:44 | disposition home or self-care (01) ==
LOC: EDUNIT# 10:36 → ER 10:37
DX: M19.011 Primary osteoarthritis, right shoulder (principal); I48.91 Unspecified atrial fibrillation; Z79.01 Long term (current) use of anticoagulants
CPT/HCPCS: 73030

== ENCOUNTER → 2021-12-25 | Outpatient (CLI) | payer MEDICARE, MEDICAID ==
[2021-12-25 09:34] LABS: BASOPHILS # (AUTO) 0.1 10^3/uL (0.0-0.1); BASOPHILS % (AUTO) 1 % (0-10); EOSINOPHILS # (AUTO) 0.1 10^3/uL (0.0-0.3); EOSINOPHILS % (AUTO) 1 % (0-10); HEMATOCRIT 50 % (40-54); LYMPHOCYTES # (AUTO) 1.2 10^3/uL (1.0-4.0); LYMPHOCYTES % (AUTO) 20 % (12-44); MEAN CORPUSCULAR HEMOGLOBIN 31 pg (25-34); MEAN CORPUSCULAR HGB CONC 34 g/dL (32-36); MEAN CORPUSCULAR VOLUME 90 fL (80-99); MEAN PLATELET VOLUME 9.5 fL (9.0-12.2); MONOCYTES # (AUTO) 0.6 10^3/uL (0.0-1.0); MONOCYTES % (AUTO) 11 % (0-12); NEUTROPHILS # (AUTO) 3.9 10^3/uL (1.8-7.8); NEUTROPHILS % (AUTO) 67 % (42-75); PLATELET COUNT 159 10^3/uL (130-400); WHITE BLOOD COUNT 5.8 10^3/uL (4.3-11.0)
[2021-12-25 09:43] LABS: ALBUMIN 4.2 GM/DL (3.2-4.5); BILIRUBIN,TOTAL 1.7 MG/DL (0.1-1.0); CALCIUM 9.4 MG/DL (8.5-10.1); CREATININE SERUM 0.86 MG/DL (0.60-1.30); POTASSIUM 3.7 MMOL/L (3.6-5.0); TOTAL PROTEIN 7.2 GM/DL (6.4-8.2)
== END ==
LOC: LAB 08:58
PROVIDERS: ATTEND Family Medicine
DX: E11.9 Type 2 diabetes mellitus without complications (principal); R35.0 Frequency of micturition; R39.11 Hesitancy of micturition; I10 Essential (primary) hypertension
CPT/HCPCS: 36415; 80053; 80061; 83036; 84153; 85025

== ENCOUNTER → 2022-04-04 | Outpatient (CLI) | payer MEDICARE, MEDICAID ==
[2022-04-04 09:36] LABS: ALBUMIN 4.2 GM/DL (3.2-4.5); BILIRUBIN,TOTAL 2.1 MG/DL (0.1-1.0); CALCIUM 9.4 MG/DL (8.5-10.1); CREATININE SERUM 0.78 MG/DL (0.60-1.30); POTASSIUM 3.6 MMOL/L (3.6-5.0); TOTAL PROTEIN 7.3 GM/DL (6.4-8.2)
== END ==
LOC: LAB 08:38
PROVIDERS: ATTEND Family Medicine
DX: E11.65 Type 2 diabetes mellitus with hyperglycemia (principal)
CPT/HCPCS: 36415; 80053; 83036

== ENCOUNTER 2022-05-03 11:50 | Outpatient (RCR) | payer MEDICARE, MEDICAID | END 2022-05-05 | disposition home or self-care (01) | PROVIDERS: ATTEND Family Medicine | DX: M54.16 Radiculopathy, lumbar region (principal); E11.9 Type 2 diabetes mellitus without complications; I10 Essential (primary) hypertension ==

== ENCOUNTER 2022-05-30 12:50 | Outpatient (RCR) | payer MEDICARE, MEDICAID ==
[~2022-05-30 12:50] MED LIST changes: -POTA10CA43 PO; +POTA10CA44 PO
== END 2022-06-05 | disposition home or self-care (01) ==
PROVIDERS: ATTEND Family Medicine
DX: M54.16 Radiculopathy, lumbar region (principal); E11.9 Type 2 diabetes mellitus without complications; I10 Essential (primary) hypertension

== ENCOUNTER 2022-06-28 12:43 | Outpatient (RCR) | payer MEDICARE, MEDICAID | END 2022-07-03 | disposition home or self-care (01) | PROVIDERS: ATTEND Family Medicine | DX: M54.16 Radiculopathy, lumbar region (principal); E11.9 Type 2 diabetes mellitus without complications; I10 Essential (primary) hypertension ==

== ENCOUNTER → 2022-09-03 | Outpatient (CLI) | payer MEDICARE, MEDICAID ==
[2022-09-03 10:27] LABS: ALBUMIN 4.3 GM/DL (3.2-4.5); CHLORIDE 105 MMOL/L (98-107); POTASSIUM 4.4 MMOL/L (3.6-5.0); SODIUM 141 MMOL/L (135-145)
[2022-09-03 10:29] LABS: CALCIUM 9.8 MG/DL (8.5-10.1)
[2022-09-03 10:30] LABS: GLUCOSE 123 MG/DL (70-105); TOTAL PROTEIN 7.9 GM/DL (6.4-8.2)
[2022-09-03 10:31] LABS: CARBON DIOXIDE 24 MMOL/L (21-32)
[2022-09-03 10:33] LABS: ALKALINE PHOSPHATASE 78 U/L (40-136); CREATININE SERUM 0.82 MG/DL (0.60-1.30); GFR ESTIMATED 89
[2022-09-03 10:34] LABS: BUN/CREATININE RATIO 12
[2022-09-03 10:36] LABS: ALANINE AMINOTRANSFERASE < 6 U/L (0-55)
== END ==
LOC: LAB 09:54
PROVIDERS: ATTEND Family Medicine
DX: E11.65 Type 2 diabetes mellitus with hyperglycemia (principal)
CPT/HCPCS: 36415; 80053; 83036

== ENCOUNTER → 2022-12-05 | Outpatient (CLI) | payer MEDICARE, MEDICAID ==
[~2022-12-05] MED LIST changes: +POTA-330 PO; -POTA-51 PO; -POTA10CA44 PO; +POTA10CA84 PO; +PUMP300C PO
[2022-12-05 10:53] LABS: ALBUMIN 4.2 GM/DL (3.2-4.5)
[2022-12-05 10:54] LABS: CALCIUM 9.9 MG/DL (8.5-10.1)
[2022-12-05 10:56] LABS: TOTAL PROTEIN 7.6 GM/DL (6.4-8.2)
[2022-12-05 10:57] LABS: BILIRUBIN,TOTAL 1.7 MG/DL (0.1-1.0)
[2022-12-05 10:59] LABS: CREATININE SERUM 0.8 MG/DL (0.60-1.30)
== END ==
LOC: LAB 10:06
PROVIDERS: ATTEND Family Medicine
DX: E11.65 Type 2 diabetes mellitus with hyperglycemia (principal)
CPT/HCPCS: 36415; 80053; 83036

== ENCOUNTER 2023-02-18 11:31 | Observation (INO) | payer MEDICARE, MEDICAID ==
[~2023-02-18] VITALS: Ht 172.7 cm; Wt 82.3 kg
[2023-02-18] VITALS (7 sets, daily range): BP systolic 146–164; BP diastolic 73–109
[2023-02-18 12:03] LABS: BASOPHILS # (AUTO) 0.1 10^3/uL (0.0-0.1); BASOPHILS % (AUTO) 1 % (0-10); EOSINOPHILS % (AUTO) 0 % (0-10); HEMATOCRIT 51 % (40-54); HEMOGLOBIN 16.1 g/dL (13.3-17.7); LYMPHOCYTES # (AUTO) 0.9 10^3/uL (1.0-4.0); LYMPHOCYTES % (AUTO) 11 % (12-44); MEAN CORPUSCULAR HEMOGLOBIN 29 pg (25-34); MEAN CORPUSCULAR HGB CONC 32 g/dL (32-36); MEAN CORPUSCULAR VOLUME 92 fL (80-99); MEAN PLATELET VOLUME 9.7 fL (9.0-12.2); MONOCYTES # (AUTO) 0.7 10^3/uL (0.0-1.0); MONOCYTES % (AUTO) 9 % (0-12); NEUTROPHILS # (AUTO) 5.9 10^3/uL (1.8-7.8); NEUTROPHILS % (AUTO) 78 % (42-75); PLATELET COUNT 281 10^3/uL (130-400); WHITE BLOOD COUNT 7.5 10^3/uL (4.3-11.0)
[2023-02-18 12:16] LABS: ALBUMIN 4.1 GM/DL (3.2-4.5); CHLORIDE 109 MMOL/L (98-107); POTASSIUM 3.8 MMOL/L (3.6-5.0); SODIUM 141 MMOL/L (135-145)
[2023-02-18 12:18] LABS: CALCIUM 9.4 MG/DL (8.5-10.1)
[2023-02-18 12:19] LABS: GLUCOSE 135 MG/DL (70-105); TOTAL PROTEIN 7.7 GM/DL (6.4-8.2)
[2023-02-18 12:20] LABS: CARBON DIOXIDE 21 MMOL/L (21-32)
[2023-02-18 12:21] LABS: BILIRUBIN,TOTAL 2.8 MG/DL (0.1-1.0)
[2023-02-18 12:22] LABS: ALKALINE PHOSPHATASE 102 U/L (40-136)
[2023-02-18 12:23] LABS: CREATININE SERUM 0.86 MG/DL (0.60-1.30); GFR ESTIMATED 88
[2023-02-18 12:24] LABS: BUN/CREATININE RATIO 20
[2023-02-18 12:25] LABS: MAGNESIUM 2.1 MG/DL (1.6-2.4)
[2023-02-18 12:26] LABS: ALANINE AMINOTRANSFERASE < 6 U/L (0-55)
--- NOTE | 2023-02-18 12:28 | ED General ---
General Chief Complaint: Cardiac/General Problems Stated Complaint: POSSIBLE A-FIB Nursing Triage Note: PT AMB TO RM 10 WITH SPOUSE WITH C/O SOB, LE SWELLING AND COUGH X2 DAYS Source of Information: Patient Exam Limitations: No Limitations History of Present Illness Date Seen by Provider: Feb 18, 2023 Time Seen by Provider: 11:36 Initial Comments This 78-year-old gentleman presents to the emergency room by private vehicle accompanied by his with concerns about shortness of breath and edema for the past 3 weeks. His dyspnea is worse with exertion and in particular lying flat. He is having trouble sleeping at night and has to sleep in an inclined position. He feels bloated in the abdomen and has had worsening lower extremity edema. He describes frequent urination in low volumes along with dribbling. He has numerous chronic health conditions including Parkinson's with dementia, atrial fibrillation, diabetes, and coronary artery disease. He had an echocardiogram in September of last year demonstrating ejection fraction of 55 to 60%. He had angiography in January 2021 demonstrating small vessel multivessel disease that was not amenable to interventions. He has been taking his medications including Eliquis and Lasix [address] Fung is his direct mail manager and Dr. Aragon is his primary care provider. He denies any chest pain. He has occasionally experienced sensation of racing heart. Allergies and Home Medications Allergies Coded Allergies: Juan Known Allergies (Unverified Allergy, Mild, 09/19/17) Patient Home Medication List Home Medication List Reviewed: Yes Acetaminophen (Tylenol Extra Strength) 500 Mg Tablet, 1,000 MG PO BID PRN for PAIN-MILD, (Reported) Entered as Reported by: SAL IGLESIAS on 09/12/15 0957 Allopurinol (Allopurinol) 100 Mg Tablet, 100 MG PO DAILY, (Reported) Entered as Reported by: SALONI TAYLOR on 05/08/16 1607 Amlodipine Besylate (Amlodipine Besylate) 5 Mg Tablet, 5 MG PO DAILY, (Reported) Entered as Reported by: LUIS ALBERTO ENGLISH on 01/25/21 1428 Atorvastatin Calcium (Atorvastatin Calcium) 10 Mg Tablet, 10 MG PO DAILY, (Reported) Entered as Reported by: SAL IGLESIAS on 10/07/17 1053 Carbidopa/Levodopa (Carbidopa-Levo ER 50-200 Tab) 1 Each Tablet.er, 1 EACH PO BID, (Reported) Entered as Reported by: LUIS ALBERTO ENGLISH on 01/25/21 1428 Cetirizine HCl (Cetirizine HCl) 10 Mg Tablet, 10 MG PO DAILY, (Reported) Entered as Reported by: LUIS ALBERTO ENGLISH on 03/28/20 142 Donepezil HCl (Donepezil HCl) 10 Mg Tablet, 10 MG PO HS, (Reported) Entered as Reported by: CHARISSA MCKEON on 01/02/21 1038 Escitalopram Oxalate (Escitalopram Oxalate) 20 Mg Tablet, 20 MG PO DAILY, (Reported) Entered as Reported by: RADHA HERNANDEZ on 09/16/19 135 Furosemide (Furosemide) 20 Mg Tablet, 20 MG PO DAILY, (Reported) Entered as Reported by: LUIS ALBERTO ENGLISH on 03/28/20 142 Glimepiride (Glimepiride) 4 Mg Tablet, 4 MG PO BID, (Reported) Entered as Reported by: RADHA HERNANDEZ on 09/16/19 135 Hydrocodone/Acetaminophen (Hydrocodone-Acetamin 5-325 mg) 5 Mg-325 Mg Tablet, 1 TAB PO HS PRN for PAIN-MODERATE (5-7) Prescribed by: DAGMAR SPENCE on 10/06/21 1141 Lisinopril (Lisinopril) 40 Mg Tablet, 40 MG PO DAILY, (Reported) Entered as Reported by: LUIS ALBERTO ENGLISH on 01/25/21 142 Metoprolol Tartrate (Metoprolol Tartrate) 50 Mg Tablet, 50 MG PO BID, (Reported) Entered as Reported by: RADHA HERNANDEZ on 09/16/19 1351 Potassium Chloride (Potassium Chloride) 20 Meq Tablet.er, 20 MEQ PO DAILY, (R eported) Entered as Reported by: LUIS ALBERTO ENGLISH on 01/25/21 142 Pumpkin Seed Extract/Soy Germ (Azo Bladder Control Capsule) 300 Mg Capsule, 300 MG PO TID Prescribed by: MARY TIAN MD on 11/27/22 0913 Rivaroxaban (Xarelto) 20 Mg Tablet, 20 MG PO HS, (Reported) Entered as Reported by: LUIS ALBERTO ENGLISH on 03/28/20 142 Semaglutide (Ozempic) 1 Mg/0.75 Ml Pen.injctr, 1 MG SQ DAILY, (Reported) Entered as Reported by: DELANO SANTOS on 06/12/21 1414 Review of Systems Review of Systems Constitutional: no symptoms reported; No fever EENTM: no symptoms reported Respiratory: see HPI Cardiovascular: see HPI Gastrointestinal: no symptoms reported Genitourinary: no symptoms reported Skin: no symptoms reported Psychiatric/Neurological: See HPI Hematologic/Lymphatic: No Symptoms Reported Immunological/Allergic: no symptoms reported Past Gghuezo-Okewlb-Xtfkxk Hx Patient Social History Tobacco Use?: No Use of E-Cig and/or Vaping dev: No Substance use?: No Alcohol Use?: No Pt feels they are or have been: No Immunizations Up To Date Tetanus Booster (TDap): Less than 5yrs PED Vaccines UTD: Yes Influenza Vaccine Up-to-Date: No; Not Current First/Initial COVID19 Vaccinat: NO Second COVID19 Vaccination Phong: NO Third COVID19 Vaccination Date: NO Seasonal Allergies Seasonal Allergies: Yes (POLLEN ) Past Medical History Surgery/Hospitalization HX: A FIB, DIABETIC TYPE II, PARKINSONS, 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, LYUBOV, COLON CA, HTN, HLD Surgeries: Yes (HERNIA; HEMORRHOIDS;EYE MUSCLE SURGERY;SKIN GRAFT;CARDIAC CATH- ANGIOPLASTY ) Gallbladder Respiratory: No (pt states he has difficulty sleeping lying down, prefers to sleep upright) Currently Using CPAP: No Currently Using BIPAP: No Cardiac: Yes (CARDIAC CATHS--ANGIOPLASTY X 2--LAST CATH 2017-NO INTERVENTION;CHF) Atrial Fibrillation, Coronary Artery Disease, High Cholesterol, Hypertension Neurological: Yes Dementia, Parkinson's Disease Reproductive Disorders: No Sexually Transmitted Disease: No HIV/AIDS: No Genitourinary: Yes Benign Prostatic Hyperpl Gastrointestinal: Yes Polyps Musculoskeletal: Yes Degenerate Disk Disease, Arthritis, Chronic Back Pain, Gout Endocrine: Yes Diabetes, Non-Insulin dep HEENT: Yes Cataract Loss of Vision: Denies Hearing Impairment: Hard of Hearing Cancer: Yes Skin Did You Recieve Any Treatments: Yes What Type of Treatment Did You: Surgical Intervention Psychosocial: Yes Anxiety, Depression Integumentary: Yes (skin graft to left graham, BASAL CELL CARCINOMAS *10) Blood Disorders: No Adverse Reaction/Blood Tranf: No (N/A) Family Medical History Cardiovascular disease 19 FATHER Hypertension 19 FATHER No Pertinent Family Hx Physical Exam Vital Signs Vital Signs - First Documented 02/18/23 11:40 Temp 37.0 Pulse 70 Resp 14 B/P (MAP) 163/107 (125) Pulse Ox 95 O2 Delivery Room Air Capillary Refill : Height, Weight, BMI Height: 5'8.00" Weight: 207lbs. 0.0oz. [id number]; 29.00 BMI Method:Stated General Appearance: No Apparent Distress, WD/WN HEENT: PERRL/EOMI, Normal ENT Inspection Neck: Normal Inspection; No JVD Respiratory: Lungs Clear, No Accessory Muscle Use, No Respiratory Distress, Decreased Breath Sounds (Diminished in the bases) Cardiovascular: Regular Rate, Rhythm, No Murmur, Other (Lower extremity pitting edema equal bilaterally) Gastrointestinal: Non Tender, Distended Extremity: Non Tender, Pedal Edema, Swelling Neurologic/Psychiatric: Alert, Oriented x3 (To baseline), Normal Mood/Affect Skin: Normal Color, Warm/Dry Progress/Results/Core Measures Suspected Sepsis SIRS Temperature: Pulse: 70 Respiratory Rate: 14 Laboratory Tests 02/18/23 11:49: White Blood Count 7.5 Blood Pressure 163 /107 Mean: 125 Laboratory Tests 02/18/23 11:49: Creatinine 0.86, Platelet Count 281, Total Bilirubin 2.8H Results/Orders Lab Results Laboratory Tests Test 02/18/23 11:49 02/18/23 12:44 Range/Units White Blood Count 7.5 4.3-11.0 10^3/uL Red Blood Count 5.49 4.30-5.52 10^6/uL Hemoglobin 16.1 13.3-17.7 g/dL Hematocrit 51 40-54 % Mean Corpuscular Volume 92 80-99 fL Mean Corpuscular Hemoglobin 29 25-34 pg Mean Corpuscular Hemoglobin Concent 32 32-36 g/dL Red Cell Distribution Width 13.9 10.0-14.5 % Platelet Count 281 130-400 10^3/uL Mean Platelet Volume 9.7 9.0-12.2 fL Immature Granulocyte % (Auto) 0 % Neutrophils (%) (Auto) 78 H 42-75 % Lymphocytes (%) (Auto) 11 L 12-44 % Monocytes (%) (Auto) 9 0-12 % Eosinophils (%) (Auto) 0 0-10 % Basophils (%) (Auto) 1 0-10 % Neutrophils # (Auto) 5.9 1.8-7.8 10^3/uL Lymphocytes # (Auto) 0.9 L 1.0-4.0 10^3/uL Monocytes # (Auto) 0.7 0.0-1.0 10^3/uL Eosinophils # (Auto) 0.0 0.0-0.3 10^3/uL Basophils # (Auto) 0.1 0.0-0.1 10^3/uL Immature Granulocyte # (Auto) 0.0 0.0-0.1 10^3/uL Sodium Level 141 135-145 MMOL/L Potassium Level 3.8 3.6-5.0 MMOL/L Chloride Level 109 H 98-107 MMOL/L Carbon Dioxide Level 21 21-32 MMOL/L Anion Gap 11 5-14 MMOL/L Blood Urea Nitrogen 17 7-18 MG/DL Creatinine 0.86 0.60-1.30 MG/DL Estimat Glomerular Filtration Rate 88 BUN/Creatinine Ratio 20 Glucose Level 135 H 70-105 MG/DL Calcium Level 9.4 8.5-10.1 MG/DL Corrected Calcium 9.3 8.5-10.1 MG/DL Magnesium Level 2.1 1.6-2.4 MG/DL Total Bilirubin 2.8 H 0.1-1.0 MG/DL Aspartate Amino Transf (AST/SGOT) 25 5-34 U/L Alanine Aminotransferase (ALT/SGPT) < 6 0-55 U/L Alkaline Phosphatase 102 40-136 U/L Troponin I < 0.028 <0.028 NG/ML C-Reactive Protein High Sensitivity 0.81 H 0.00-0.50 MG/DL B-Type Natriuretic Peptide 1356.3 H <100.0 PG/ML Total Protein 7.7 6.4-8.2 GM/DL Albumin 4.1 3.2-4.5 GM/DL Urine Color YELLOW Urine Clarity CLEAR Urine pH 5.5 5-9 Urine Specific [place] 1.015 L 1.016-1.022 Urine Protein NEGATIVE NEGATIVE Urine Glucose (UA) NEGATIVE NEGATIVE Urine Ketones NEGATIVE NEGATIVE Urine Nitrite NEGATIVE NEGATIVE Urine Bilirubin NEGATIVE NEGATIVE Urine Urobilinogen 0.2 < = 1.0 MG/DL Urine Leukocyte Esterase NEGATIVE NEGATIVE Urine RBC (Auto) NEGATIVE NEGATIVE Urine RBC NONE /HPF Urine WBC NONE /HPF Urine Squamous Epithelial Cells NONE /HPF Urine Crystals NONE /LPF Urine Bacteria NEGATIVE /HPF Urine Casts NONE /LPF Urine Mucus NEGATIVE /LPF Urine Culture Indicated NO My Orders Orders - ZAINAB ROSARIO MD Ekg Tracing (02/18/23 11:35) Ed Iv/Invasive Line Start (02/18/23 11:47) Bladder Scan (02/18/23 11:47) Monitor-Rhythm Ecg Trace Only (02/18/23 11:47) Bnp [place] (02/18/23 11:48) Cbc And Automated Diff (02/18/23 11:48) Comprehensive Metabolic Panel (02/18/23 11:48) Hs C Reactive Protein (02/18/23 11:48) Magnesium (02/18/23 11:48) Troponin I [place] (02/18/23 11:48) Ua Culture If Indicated (02/18/23 11:48) Chest Pa/Lat (2 View) (02/18/23 11:48) Furosemide Injection (Furosemide Injec (02/18/23 13:45) Potassium Chloride (Tablet) (Potassium C (02/18/23 13:45) Babb Cath (02/18/23 13:52) Ed Admission (Communication) (02/18/23 13:53) Lidocaine 2% (Urojet) (Lidocaine 2% (Uro (02/18/23 14:01) Code/Resuscitation (02/18/23 14:24) Medications Given in ED Current Medications Medications Dose Ordered Sig/Jaylen Route Start Time Stop Time Status Last Admin Dose Admin Furosemide 80 mg ONCE ONCE IVP 02/18/23 13:45 02/18/23 13:46 DC 02/18/23 14:11 80 MG Lidocaine HCl 10 ml STK-MED ONCE .ROUTE 02/18/23 14:01 02/18/23 14:05 DC 02/18/23 14:11 10 ML Potassium Chloride 20 meq ONCE ONCE PO 02/18/23 13:45 02/18/23 13:46 DC 02/18/23 14:11 20 MEQ Vital Signs/I&O 02/18/23 02/18/23 02/18/23 11:40 15:15 15:20 Temp 37.0 Pulse 70 69 68 Resp 14 12 B/P (MAP) 163/107 (125) 164/109 (127) 151/89 Pulse Ox 95 98 95 O2 Delivery Room Air Room Air Room Air Capillary Refill : Blood Pressure Mean: 125 Progress Note : Progress Note Case was discussed with Dr. Fung at 1340. Patient appears to have congestive heart failure with elevated BNP, peripheral edema, and shortness of breath. He had a 6 beat run of narrow complex tachycardia with heart rate around 150 that was concerning for ventricular tachycardia. Dr. Fung, direct mail manager, would like him admitted for observation for further evaluation including echocardiogram and telemetry monitoring. He recommended a bolus of Lasix 80 mg IV for aggressive diuresis. Patient had bladder scanning performed which yielded nearly 300 mL of residual postvoid urine. Babb catheter was placed after discussing with Dr. Edge, admitting hospitalist. Patient is being admitted to the cardiac stepdown unit. I discussed CODE STATUS with the patient, and he requests to remain full code at this time. He does have some degree of dementia with his Parkinson's and defers decision-making to his who agrees with full CODE STATUS. Labs were reviewed and interpreted by me in their entirety. CBC was unremarkable. CMP was also unremarkable. There were no clinically relevant abnormalities noted. BNP was elevated at 1356. Chest x-ray was viewed by me and compared with prior. There is cardiomegaly with no obvious overt heart failure. Radiologist's report was reviewed as below. Troponin was negative. EKG demonstrated atrial fibrillation without tachycardia or ischemic changes as noted in my interpretation below. CRP was low suggesting no evidence of bacterial infection. Urinalysis was unremarkable. ECG Initial ECG Impression Date: Feb 18, 2023 Initial ECG Impression Time: 11:49 Initial ECG Rate: 77 Initial ECG Rhythm: A Fib/Flutter Comment Atrial fibrillation with no ST elevation or depression. PVCs noted. No axis deviation or other abnormal intervals. Diagnostic Imaging Diagonstic Imaging: Xray Plain Films/CT/US/NM/MRI: chest Comments NAME: L[facility]SET [facility] REC#: [id number] PT STATUS: REG ER : 1945 PHYSICIAN: ZAINAB ROSARIO MD ADMIT DATE: 02/18/23/ER Signed Date of Exam:02/18/23 CHEST PA/LAT (2 VIEW) INDICATION: Shortness of breath. Comparison is made with prior exam of 07/22/2018. FINDINGS: There is mild cardiomegaly. Mediastinum is unremarkable. No pleural effusion, pneumothorax or pneumonia. IMPRESSION: No acute cardiopulmonary abnormality. Mild cardiomegaly. Dictated by: Dictated on workstation # [id number] Dict: 02/18/23 1256 Trans: 02/18/23 1310 CVB [id number] Interpreted by: RAY BRISENO MD Electronically signed by: RAY BRISENO MD 02/18/23 1310 Departure Communication (Admissions) Time/Spoke to Admitting Phy: 13:50 Dr. Edge Time/Spoke to Consulting Phy: 13:40 Dr. Fung Impression Primary Impression: Congestive heart failure Qualified Codes: I50.9 - Heart failure, unspecified Additional Impressions: Atrial fibrillation Qualified Codes: I48.91 - Unspecified atrial fibrillation Narrow complex tachycardia Dyspnea Qualified Codes: R06.00 - Dyspnea, unspecified Disposition: 09 ADMITTED INPATIENT Condition: Stable Admissions Decision to Admit Reason: Admit from ER (General) Decision to Admit/Date: Feb 18, 2023 Time/Decision to Admit Time: 13:40 Departure-Patient Inst. Referrals: ANA ARAGON DO (PCP/Family) Primary Care Physician Copy Copies To 1: ANA ARAGON JOSHUA T MD Feb 18, 2023 12:28
--- NOTE | 2023-02-18 12:58 | Diagnostic Imaging Report ---
INDICATION: Shortness of breath. Comparison is made with prior exam of 07/22/2018. FINDINGS: There is mild cardiomegaly. Mediastinum is unremarkable. No pleural effusion, pneumothorax or pneumonia. IMPRESSION: No acute cardiopulmonary abnormality. Mild cardiomegaly. Dictated by: Dictated on workstation # [id number]
[2023-02-18 13:05] LABS: BACTERIA,URINE NEGATIVE /HPF; BILIRUBIN,URINE NEGATIVE (NEGATIVE); CLARITY,URINE CLEAR; COLOR,URINE YELLOW; GLUCOSE, URINE (UA) NEGATIVE (NEGATIVE); KETONES,URINE NEGATIVE (NEGATIVE); LEUKOCYTE ESTERASE ,URINE NEGATIVE (NEGATIVE); NITRITE,URINE NEGATIVE (NEGATIVE); PH,URINE 5.5 (5-9); PROTEIN,URINE NEGATIVE (NEGATIVE)
[2023-02-18] MEDS ORDERED: FUROSEMIDE INJECTION 40 MG/4 ML VIAL IVP ONE (13:45)
[2023-02-18] MEDS ORDERED: POTASSIUM CHLORIDE 10 MEQ TABLET PO ONE (13:45)
[2023-02-18] MEDS ORDERED: LIDOCAINE UROJET 2% GEL 10 ML PKG ONE (14:01)
[2023-02-18] MEDS ORDERED: MILK OF MAGNESIA 400 MG/5 ML 30 ML UDC PO PRN (15:30)
[2023-02-18] MEDS ORDERED: ACETAMINOPHEN 325 MG TABLET PO PRN (15:30)
[2023-02-18] MEDS ORDERED: ONDANSETRON INJECTION 4 MG/2 ML (SDV) IV PRN (15:30)
[2023-02-18] MEDS ORDERED: LACTULOSE SYRUP 10GM/15ML 30ML UDC PO PRN (15:30)
[2023-02-18] MEDS ORDERED: BISACODYL 10 MG SUPPOSITORY PR PRN (15:30)
[2023-02-18] MEDS ORDERED: ONDANSETRON 4 MG ORAL DISSOLVE TABLET PO PRN (15:30)
[2023-02-18] MEDS ORDERED: CALCIUM CARBONATE 500 MG CHEW TABLET PO PRN (15:30)
[2023-02-18] MEDS ORDERED: PATIENT MAY USE OWN MEDS, ALL PO SCH (15:30)
[2023-02-18] MEDS ORDERED: ANTACID SUSPENSION 30 ML UDC PO PRN (15:30)
[2023-02-18] MEDS ORDERED: diphenhydrAMINE INJ 50 MG/ML VIAL IVP PRN (15:30)
[2023-02-18] MEDS ORDERED: MELATONIN 3 MG TABLET PO PRN (15:30)
[2023-02-18] MEDS ORDERED: diphenhydrAMINE 25 MG TABLET PO PRN (15:30)
[2023-02-18] MEDS: inSUlin ASPART 1 UNIT/0.01 ML (PER UNIT) SC SCH ×2 (16:25→22:07)
[2023-02-18] MEDS ORDERED: RT-Ipratropium/Albuterol NEB 3 ML VIAL INH PRN (16:30)
--- NOTE | 2023-02-18 16:50 | Consultation-Cardiology ---
HPI-Cardiology Cardiology Consultation Date of Consultation 02/18/23 Date of Admission Time Seen by Provider: 16:44 Indication: Congestive heart failure HPI 78 years old gentleman with history of coronary artery disease, hypertension. Inoperable disease by cardiac catheterization. Has been having increasing shortness of breath, peripheral edema, weakness and palpitation. Denied any chest pain. Came into the emergency room for evaluation. He reporting some dysuria. Home Medications & Allergies Allergies: Coded Allergies: NKANo Known Allergies (Unverified Allergy, Mild, 09/19/17) Home Medication List Reviewed: Yes UKX-Vddfwa-Hrdyfn Hx Patient Social History Marital Status: single Employed/Student: retired Former smoker/When Quit: Sep 01, 1986 Type Used: Cigarettes 2nd Hand Smoke Exposure: No Recent Hopitalizations: Yes (ED FOR COVID) Alcohol Use?: No Immunizations Up To Date Tetanus Booster (TDap): Less than 5yrs Date of Pneumonia Vaccine: September 15, 2017 Date of Influenza Vaccine: Feb 18, 2017 Past Medical History Discussed below Family Medical History Significant Family History: No Pertinent Family Hx Family History: Cardiovascular disease 19 FATHER Hypertension 19 FATHER Review of Systems-General Review of Systems Constitutional: no symptoms reported; No fever; malaise, weakness EENTM: no symptoms reported Respiratory: see HPI, dyspnea on exertion, short of breath Cardiovascular: see HPI; No chest pain; edema; No Hx of Intervention; palpitations; No syncope, No vascular heart diseas, No other Gastrointestinal: no symptoms reported Genitourinary: no symptoms reported Musculoskeletal: no symptoms reported, see HPI Skin: no symptoms reported Psychiatric/Neurological: See HPI Reviewed Test Results Reviewed Test Results Lab Laboratory Tests Test 02/18/23 11:49 02/18/23 12:44 02/18/23 16:21 Range/Units White Blood Count 7.5 4.3-11.0 10^3/uL Red Blood Count 5.49 4.30-5.52 10^6/uL Hemoglobin 16.1 13.3-17.7 g/dL Hematocrit 51 40-54 % Mean Corpuscular Volume 92 80-99 fL Mean Corpuscular Hemoglobin 29 25-34 pg Mean Corpuscular Hemoglobin Concent 32 32-36 g/dL Red Cell Distribution Width 13.9 10.0-14.5 % Platelet Count 281 130-400 10^3/uL Mean Platelet Volume 9.7 9.0-12.2 fL Immature Granulocyte % (Auto) 0 % Neutrophils (%) (Auto) 78 H 42-75 % Lymphocytes (%) (Auto) 11 L 12-44 % Monocytes (%) (Auto) 9 0-12 % Eosinophils (%) (Auto) 0 0-10 % Basophils (%) (Auto) 1 0-10 % Neutrophils # (Auto) 5.9 1.8-7.8 10^3/uL Lymphocytes # (Auto) 0.9 L 1.0-4.0 10^3/uL Monocytes # (Auto) 0.7 0.0-1.0 10^3/uL Eosinophils # (Auto) 0.0 0.0-0.3 10^3/uL Basophils # (Auto) 0.1 0.0-0.1 10^3/uL Immature Granulocyte # (Auto) 0.0 0.0-0.1 10^3/uL Sodium Level 141 135-145 MMOL/L Potassium Level 3.8 3.6-5.0 MMOL/L Chloride Level 109 H 98-107 MMOL/L Carbon Dioxide Level 21 21-32 MMOL/L Anion Gap 11 5-14 MMOL/L Blood Urea Nitrogen 17 7-18 MG/DL Creatinine 0.86 0.60-1.30 MG/DL Estimat Glomerular Filtration Rate 88 BUN/Creatinine Ratio 20 Glucose Level 135 H 70-105 MG/DL Calcium Level 9.4 8.5-10.1 MG/DL Corrected Calcium 9.3 8.5-10.1 MG/DL Magnesium Level 2.1 1.6-2.4 MG/DL Total Bilirubin 2.8 H 0.1-1.0 MG/DL Aspartate Amino Transf (AST/SGOT) 25 5-34 U/L Alanine Aminotransferase (ALT/SGPT) < 6 0-55 U/L Alkaline Phosphatase 102 40-136 U/L Troponin I < 0.028 <0.028 NG/ML C-Reactive Protein High Sensitivity 0.81 H 0.00-0.50 MG/DL B-Type Natriuretic Peptide 1356.3 H <100.0 PG/ML Total Protein 7.7 6.4-8.2 GM/DL Albumin 4.1 3.2-4.5 GM/DL Urine Color YELLOW Urine Clarity CLEAR Urine pH 5.5 5-9 Urine Specific [place] 1.015 L 1.016-1.022 Urine Protein NEGATIVE NEGATIVE Urine Glucose (UA) NEGATIVE NEGATIVE Urine Ketones NEGATIVE NEGATIVE Urine Nitrite NEGATIVE NEGATIVE Urine Bilirubin NEGATIVE NEGATIVE Urine Urobilinogen 0.2 < = 1.0 MG/DL Urine Leukocyte Esterase NEGATIVE NEGATIVE Urine RBC (Auto) NEGATIVE NEGATIVE Urine RBC NONE /HPF Urine WBC NONE /HPF Urine Squamous Epithelial Cells NONE /HPF Urine Crystals NONE /LPF Urine Bacteria NEGATIVE /HPF Urine Casts NONE /LPF Urine Mucus NEGATIVE /LPF Urine Culture Indicated NO Glucometer 105 70-110 MG/DL Physical Exam Physical Exam Vital Signs Vital Signs - First Documented 02/18/23 11:40 Temp 37.0 Pulse 70 Resp 14 B/P (MAP) 163/107 (125) Pulse Ox 95 O2 Delivery Room Air Capillary Refill : Height, Weight, BMI Height: 5'8.00" Weight: 207lbs. 0.0oz. 93.623430ic; 29.84 BMI Method:Stated General Appearance: No Apparent Distress, WD/WN HEENT: PERRL/EOMI, Normal ENT Inspection Neck: Normal Inspection; No JVD Respiratory: Lungs Clear, No Accessory Muscle Use, No Respiratory Distress, Decreased Breath Sounds (Diminished in the bases) Cardiovascular: Regular Rate, Rhythm, No Murmur, Systolic Murmur, Gallop/S3, Other (Lower extremity pitting edema equal bilaterally) Gastrointestinal: Non Tender, Distended Extremity: Non Tender, Pedal Edema, Swelling Neurologic/Psychiatric: Alert, Oriented x3 (To baseline), Normal Mood/Affect Skin: Normal Color, Warm/Dry A/P-Cardiology Admission Diagnosis Congestive heart failure, acute ischemic dilated cardiomyopathy, systolic dysfunction Coronary artery disease Hypertension Hyperlipidemia Assessment/Plan Congestive heart failure, acute left ventricular systolic dysfunction, most probably ischemic cardiomyopathy Patient has inoperable severe coronary artery disease by cardiac catheterization in January 2021 We will start aggressive diuresis with Lasix, has been maintained on metoprolol and lisinopril which will be increased, add Aldactone and Jardiance and evaluate tolerance and response 2D echo was done on February 18, 2023 with four-chamber dilatation, severe diffuse left ventricular hypokinesia with ejection fraction 15 to 20%, mild mitral regurgitation, moderate tricuspid regurgitation, PA pressure 60 to 65 mmHg Chest pain, has history of chronic stable angina. Reports improvement in his symptoms recently Coronary artery disease- Cardiac catheterization done on October 22, [address] [facility] revealing left main with 25 percent narrowing. LAD had apical 75-80 percent narrowing reduced to less than 25 percent following balloon angioplasty. First diagonal with 30-40 percent narrowing. Ramus branch with mild 25 percent narrowing. Circumflex artery with 30-40 percent diffuse narrowing and small system. RCA was moderately large vessel with 20-25 percent stenosis. Posterior lateral branch had 80 percent narrowing reduced to less than 25 percent following balloon angioplasty. PDA had 70 percent mid narrowing reduced to less than 25 percent following balloon angioplasty. Right femoral artery was widely patent. Cardiac catheterization done May 09, 2016 revealed small vessel disease, especially in the circumflex artery that is not amenable to intervention. LAD has moderate disease with no obstructive disease. RCA had moderate disease at proximal and distal portion. Right PDA had significant disease but also small artery not amenable to intervention, stress test done in showing diaphragmatic attenuation and intestinal attenuation affecting the quality of the images, fixed defect at the inferior wall with ejection fraction 38 percent. LHC done 01/25/21 showing calcified coronary system with severe stenosis at the distal right PDA, distal LAD Conservative management is recommended Dysuria, status post Babb catheter placement Monitor urine output Severe pulmonary hypertension, PA pressure was 60 mmHg, last echo done September 2021 showing PA pressure 55 mmHg Chronic permanent atrial fibrillation, rate controlled. Continue to monitor [id number] score is 3, yearly risk of stroke without oral anticoagulation is 3.2 percent. Maintained on Eliquis Hypertension, controlled, Restart lisinopril 40 mg daily, metoprolol 50 mg twice daily Hold amlodipine for now and adding Aldactone and evaluate tolerance and response Depression/anxiety-managed by primary care physician Diabetes mellitus, followed and managed by primary care physician. Hyperlipidemia, maintained on Lipitor 10 mg daily. I will evaluate lipid profile Obstructive sleep apnea, had a sleep study and recommended CPAP Patient prefer not to have it Carotid stenosis, nonobstructive carotid artery stenosis per carotid duplex done March 2022. Continue to monitor SKYLAR CAMPOS MD Feb 18, 2023 16:50
[2023-02-18] MEDS ORDERED: SEMA1PEN3 SQ (18:50)
[2023-02-18] MEDS ORDERED: APIX5TAB PO (18:50)
[2023-02-18] MEDS ORDERED: ACET-2267 PO (18:50)
[2023-02-18] MEDS ORDERED: AMLO10TA4 PO (18:50)
[2023-02-18] MEDS ORDERED: CARB1TAB41 PO (18:50)
--- NOTE | 2023-02-18 18:56 | History & Physical ---
History of Present Illness HPI/Chief Complaint CC: Dypsnea from AECHF HPI: This is an 78yoWM with h/o CAD inoperable on last cath 2 years ago who is a patient of Dr Aragon and Dr Fung who presented to ER with increased SOB with edema. CHF dx and in need of IV Lasix with electrolyte monitoring. Currently he has jiménez cath due to retention. Source: patient, RN/MD, old records Exam Limitations: no limitations Date Seen 02/18/23 Time Seen by a Provider: 18:30 Attending Physician Laura Aragon DO PCP Admitting Physician: Birgit Rodgers DO Attending Physician: Birgit Rodgers DO Referring Physician Date of Admission Feb 18, 2023 at 15:22 Home Medications & Allergies Home Medications Reviewed patient Home Medication Reconciliation performed by pharmacy medication reconciliations electrical mechanical technician and/or nursing. Patients Allergies have been reviewed. Allergies Allergies Coded Allergies NKANo Known Allergies (Unverified Allergy, Mild, 09/19/17) Past [id number]-Epihjo Hx Past Med/Social Hx: Reviewed Nursing Past Med/Soc Hx, Reviewed and Corrections made Patient Social History Marrital Status: single Employed/Student: retired Alcohol Beverage of Choice: Beer Former Smoker, Quit: Aug 07, 1987 Type Used: Cigarettes 2nd Hand Smoke Exposure: No Recent Hopitalizations: Yes (ED FOR COVID) Immunizations Up To Date Tetanus Booster (TDap): Less than 5yrs Pediatric: Yes Date of Pneumonia Vaccine: September 15, 2017 Date of Influenza Vaccine: Feb 18, 2017 Seasonal Allergies Seasonal Allergies: Yes (POLLEN ) Past Medical History Surgeries: Gallbladder Currently Using CPAP: No Currently Using BIPAP: No Cardiac: Atrial Fibrillation, Coronary Artery Disease, High Cholesterol, Hypertension Neurological: Dementia, Parkinson's Disease Reproductive: No Sexually Transmitted Disease: No HIV/AIDS: No Genitourinary: Benign Prostatic Hyperpl Gastrointestinal: Polyps Musculoskeletal: Degenerate Disk Disease, Arthritis, Chronic Back Pain, Gout Endocrine: Diabetes, Non-Insulin dep HEENT: Cataract Loss of Vision: Denies Hearing Impairment: Hard of Hearing Cancer: Skin Did You Recieve Any Treatments: Yes What Type of Treatment Did You: Surgical Intervention Psychosocial: Anxiety, Depression History of Blood Disorders: No Adverse Reaction to Blood Moore: No (N/A) Family History Cardiovascular disease 19 FATHER Hypertension 19 FATHER No Pertinent Family Hx Review of Systems Constitutional: see HPI Respiratory: short of breath Physical Exam Physical Exam Vital Signs Vital Signs - First Documented 02/18/23 02/19/23 11:40 04:00 Temp 37.0 Pulse 70 Resp 14 B/P (MAP) 163/107 (125) Pulse Ox 95 O2 Delivery Room Air O2 Flow Rate 2.00 Capillary Refill : Height, Weight, BMI Height: 5'8.00" Weight: 207lbs. 0.0oz. 93.543022kg; 29.84 BMI Method:Stated General Appearance: No Apparent Distress, WD/WN, Chronically ill HEENT: PERRL/EOMI, Normal ENT Inspection Neck: Normal Inspection; No JVD Respiratory: Lungs Clear, No Accessory Muscle Use, No Respiratory Distress, Decreased Breath Sounds (Diminished in the bases) Cardiovascular: Regular Rate, Rhythm, No Murmur, Other (Lower extremity pitting edema equal bilaterally) Gastrointestinal: Non Tender, Distended Extremity: Non Tender, Pedal Edema, Swelling Neurologic/Psychiatric: Alert, Oriented x3 (To baseline), Normal Mood/Affect Skin: Normal Color, Warm/Dry Results Results/Procedures Labs Laboratory Tests 02/18/23 11:49 Patient resulted labs reviewed. Assessment/Plan Admission Diagnosis Assessment: Acute hypoxic resp failure AECHF PD Dementia Debility Urinary retention AF on OAC Plan: IV Lasix Cards consult Admission Status: Observation BIRGIT RODGERS DO Feb 18, 2023 18:56
[2023-02-18] MEDS ORDERED: FUROSEMIDE INJECTION 40 MG/4 ML VIAL IV SCH (20:00)
[2023-02-18] MEDS: APIXABAN 5 MG TABLET PO SCH (20:34)
[2023-02-18] MEDS: SENNOSIDES 8.6 MG TABLET PO SCH (20:34)
[2023-02-18] MEDS: DOCUSATE SODIUM 100 MG CAPSULE PO SCH (20:34)
[2023-02-18] MEDS ORDERED: meTOprolol TARTRATE (IR) 50 MG TABLET PO SCH (21:00)
[2023-02-18] MEDS ORDERED: DONEPEZIL 10 MG TABLET PO SCH (21:00)
[2023-02-18] MEDS: RT-Ipratropium/Albuterol NEB 3 ML VIAL INH SCH (21:53)
[2023-02-18] MEDS ORDERED: CARBIDOPA/LEVODOPA 25/100 TABLET PO ONE (22:00)
[2023-02-18] MEDS: meTOprolol TARTRATE (IR) 50 MG TABLET PO SCH (22:07)
[2023-02-19] VITALS (8 sets, daily range): BP systolic 122–145; BP diastolic 69–108
[2023-02-19 04:48] LABS: BASOPHILS # (AUTO) 0.1 10^3/uL (0.0-0.1); BASOPHILS % (AUTO) 1 % (0-10); EOSINOPHILS % (AUTO) 0 % (0-10); HEMATOCRIT 48 % (40-54); HEMOGLOBIN 15.5 g/dL (13.3-17.7); LYMPHOCYTES # (AUTO) 0.8 10^3/uL (1.0-4.0); LYMPHOCYTES % (AUTO) 7 % (12-44); MEAN CORPUSCULAR HEMOGLOBIN 29 pg (25-34); MEAN CORPUSCULAR HGB CONC 33 g/dL (32-36); MEAN CORPUSCULAR VOLUME 90 fL (80-99); MEAN PLATELET VOLUME 9.4 fL (9.0-12.2); MONOCYTES # (AUTO) 1.4 10^3/uL (0.0-1.0); MONOCYTES % (AUTO) 12 % (0-12); NEUTROPHILS # (AUTO) 9.1 10^3/uL (1.8-7.8); NEUTROPHILS % (AUTO) 80 % (42-75); PLATELET COUNT 216 10^3/uL (130-400); WHITE BLOOD COUNT 11.4 10^3/uL (4.3-11.0)
[2023-02-19 05:13] LABS: ALBUMIN 3.6 GM/DL (3.2-4.5); BILIRUBIN,TOTAL 2.4 MG/DL (0.1-1.0); CALCIUM 8.7 MG/DL (8.5-10.1); CREATININE SERUM 0.84 MG/DL (0.60-1.30); TOTAL PROTEIN 6.4 GM/DL (6.4-8.2)
[2023-02-19 05:49] LABS: LYMPHOCYTES % (MANUAL) 6 %; MONOCYTES % (MANUAL) 9 %; NEUTROPHILS % (MANUAL) 85 %; RBC MORPH NORMAL
[2023-02-19] MEDS: inSUlin ASPART 1 UNIT/0.01 ML (PER UNIT) SC SCH ×4 (06:01→20:37)
[2023-02-19] MEDS ORDERED: POTASSIUM CHLORIDE 20 MEQ TABLET PO SCH (07:00)
[2023-02-19] MEDS ORDERED: POTASSIUM CHLORIDE 20 MEQ TABLET PO ONE ×3 (08:00→10:00)
[2023-02-19] MEDS: APIXABAN 5 MG TABLET PO SCH (08:22)
[2023-02-19] MEDS: meTOprolol TARTRATE (IR) 50 MG TABLET PO SCH ×2 (08:22→21:48)
[2023-02-19] MEDS: EMPAGLIFLOZIN 10 MG TABLET PO SCH (08:22)
[2023-02-19] MEDS: SPIRONOLACTONE 25 MG TABLET PO SCH (08:22)
[2023-02-19] MEDS: DOCUSATE SODIUM 100 MG CAPSULE PO SCH ×2 (08:26→20:37)
[2023-02-19] MEDS: SENNOSIDES 8.6 MG TABLET PO SCH ×2 (08:27→20:37)
[2023-02-19] MEDS: RT-Ipratropium/Albuterol NEB 3 ML VIAL INH SCH (08:43)
[2023-02-19] MEDS ORDERED: CARBIDOPA/LEVODOPA 25/100 TABLET PO ONE (08:45)
[2023-02-19] MEDS ORDERED: ASPIRIN 81 MG CHEWABLE TABLET PO SCH (09:00)
[2023-02-19] MEDS ORDERED: CITALOPRAM 20 MG TABLET PO SCH (09:00)
[2023-02-19] MEDS ORDERED: FUROSEMIDE 20 MG TABLET PO SCH (09:00)
[2023-02-19] MEDS ORDERED: ALLOPURINOL 100 MG TABLET PO SCH (09:00)
--- NOTE | 2023-02-19 10:11 | Cardiology Progress Note ---
Subjective Date Seen by Provider: Feb 19, 2023 Time Seen by Provider: 10:08 Subjective/Events-last exam Patient was laying down comfortably in bed, feeling better. No new complain Review of Systems General: No Chills, No Night Sweats; Fatigue; No Malaise, No Appetite, No Other HEENT: No Head Aches, No Visual Changes, No Eye Pain, No Ear Pain, No Dysphasia, No Sinus Congestion, No Post Nasal Drip, No Sore Throat, No Other Pulmonary: No Dyspnea, No Cough, No Pleuritic Chest Pain, No Other Cardiovascular: Edema; No: Chest Pain, Palpitations, Orthopnea, Paroxysmal Noc. Dyspnea, Lt Headedness, Other Objective-Cardiology Exam Last Set of Vital Signs Vital Signs 02/18/23 02/19/23 02/19/23 19:29 04:00 08:44 Temp 36.3 Pulse Ox 99 O2 Delivery Room Air O2 Flow Rate 2.00 I&O Intake and Output 02/19/23 00:00 Intake Total 750 ml Output Total 4100 ml Balance -3350 ml Intake Oral 750 ml Output Urine Total 4100 ml Bladder Scan Volume Amount 293 ml Daily Weight Change No General: Alert, Oriented X3, Cooperative HEENT: Atraumatic, PERRLA Neck: Supple, No JVD, No Thyromegaly Lungs: Clear to Auscultation, Normal Air Movement Heart: Regular Rate, Normal S1, Normal S2, Other (Systolic murmur at the left sternal border) Abdomen: Normal Bowel Sounds, Soft, No Tenderness, No Hepatosplenomegaly, Other Extremities: No Clubbing, No Cyanosis, Normal Pulses, No Tenderness/Swelling, Other (Peripheral edema) Skin: No Rashes, No Breakdown, No Significant Lesion Neuro: Normal Gait, Normal Speech, Strength at 5/5 X4 Ext, Normal Tone, Sensation Intact Psych/Mental Status: Mental Status NL, Mood NL Results Lab Laboratory Tests 02/18/23 11:49 02/19/23 04:34 A/P-Cardiology Admission Diagnosis Congestive heart failure, acute ischemic dilated cardiomyopathy, systolic dysfunction Coronary artery disease Hypertension Hyperlipidemia Assessment/Plan Congestive heart failure, acute left ventricular systolic dysfunction, most probably ischemic cardiomyopathy Patient has inoperable severe coronary artery disease by cardiac catheterization in January 2021 Responding well to diuretics. Continue to monitor 2D echo was done on February 18, 2023 with four-chamber dilatation, severe diffuse left ventricular hypokinesia with ejection fraction 15 to 20%, mild mitral regurgitation, moderate tricuspid regurgitation, PA pressure 60 to 65 mmHg Chest pain, has history of chronic stable angina. Reports improvement in his symptoms recently Coronary artery disease- Cardiac catheterization done on October 22, [address] Adam [facility] revealing left main with 25 percent narrowing. LAD had apical 75-80 percent narrowing reduced to less than 25 percent following balloon angioplasty. First diagonal with 30-40 percent narrowing. Ramus branch with mild 25 percent narrowing. Circumflex artery with 30-40 percent diffuse narrowing and small system. RCA was moderately large vessel with 20-25 percent stenosis. Posterior lateral branch had 80 percent narrowing reduced to less than 25 percent following balloon angioplasty. PDA had 70 percent mid narrowing reduced to less than 25 percent following balloon angioplasty. Right femoral artery was widely patent. Cardiac catheterization done May 09, 2016 revealed small vessel disease, especially in the circumflex artery that is not amenable to intervention. LAD has moderate disease with no obstructive disease. RCA had moderate disease at proximal and distal portion. Right PDA had significant disease but also small artery not amenable to intervention, stress test done in showing diaphragmatic attenuation and intestinal attenuation affecting the quality of the images, fixed defect at the inferior wall with ejection fraction 38 percent. LHC done 01/25/21 showing calcified coronary system with severe stenosis at the distal right PDA, distal LAD Conservative management was recommended previously. I am concerned about progression of his disease. Planning for cardiac catheterization possible PTCA in a.m. and reevaluate his coronary anatomy Dysuria, status post Babb catheter placement Monitor urine output Severe pulmonary hypertension, PA pressure was 60 mmHg, last echo done September 2021 showing PA pressure 55 mmHg Chronic permanent atrial fibrillation, rate controlled. Continue to monitor [id number] score is 3, yearly risk of stroke without oral anticoagulation is 3.2 percent. Maintained on Eliquis Hypertension, controlled, Restart lisinopril 40 mg daily, metoprolol 50 mg twice daily Hold amlodipine for now and adding Aldactone and evaluate tolerance and response Depression/anxiety-managed by primary care physician Diabetes mellitus, followed and managed by primary care physician. Hyperlipidemia, maintained on Lipitor 10 mg daily. LDL 78, total cholesterol 111. Continue to monitor Obstructive sleep apnea, had a sleep study and recommended CPAP Patient prefer not to have it Carotid stenosis, nonobstructive carotid artery stenosis per carotid duplex done March 2022. Continue to monitor SKYLAR CAMPOS MD Feb 19, 2023 10:11
[2023-02-19] MEDS ORDERED: OMEP20CA18 PO (11:28)
[2023-02-19] MEDS ORDERED: CARB1TAB41 PO (11:28)
[2023-02-19] MEDS ORDERED: ACET-2267 PO (11:28)
[2023-02-19] MEDS ORDERED: NITR0.4T39 SL (11:28)
[2023-02-19] MEDS ORDERED: APIX5TAB PO (11:28)
[2023-02-19] MEDS ORDERED: SEMA0.258 PO (11:28)
[2023-02-19] MEDS ORDERED: MEMA10TA57 PO (11:28)
[2023-02-19] MEDS ORDERED: MAGN400T39 PO (11:31)
--- NOTE | 2023-02-19 11:37 | Progress Note ---
Subjective Date Seen by a Provider: Feb 19, 2023 Objective Exam Last Set of Vital Signs Vital Signs Date Time Temp Pulse Resp B/P (MAP) Pulse Ox O2 Delivery O2 Flow Rate FiO2 02/19/23 08:44 99 Room Air 02/19/23 08:00 79 16 144/79 (100) 02/19/23 04:00 2.00 02/18/23 19:29 36.3 Capillary Refill : I&O Intake and Output 02/19/23 00:00 Intake Total 750 ml Output Total 4100 ml Balance -3350 ml Intake Oral 750 ml Output Urine Total 4100 ml Bladder Scan Volume Amount 293 ml Daily Weight Change No Results Lab Laboratory Tests 02/18/23 11:49: White Blood Count 7.5, Red Blood Count 5.49, Hemoglobin 16.1, Hematocrit 51, Mean Corpuscular Volume 92, Mean Corpuscular Hemoglobin 29, Mean Corpuscular Hemoglobin Concent 32, Red Cell Distribution Width 13.9, Platelet Count 281, Mean Platelet Volume 9.7, Immature Granulocyte % (Auto) 0, Neutrophils (%) (Auto) 78H, Lymphocytes (%) (Auto) 11L, Monocytes (%) (Auto) 9, Eosinophils (%) (Auto) 0, Basophils (%) (Auto) 1, Neutrophils # (Auto) 5.9, Lymphocytes # (Auto) 0.9L, Monocytes # (Auto) 0.7, Eosinophils # (Auto) 0.0, Basophils # (Auto) 0.1, Immature Granulocyte # (Auto) 0.0, Sodium Level 141, Potassium Level 3.8, Chloride Level 109H, Carbon Dioxide Level 21, Anion Gap 11, Blood Urea Nitrogen 17, Creatinine 0.86, Estimat Glomerular Filtration Rate 88, BUN/Creatinine Ratio 20, Glucose Level 135H, Calcium Level 9.4, Corrected Calcium 9.3, Magnesium Level 2.1, Total Bilirubin 2.8H, Aspartate Amino Transf (AST/SGOT) 25, Alanine Aminotransferase (ALT/SGPT) < 6, Alkaline Phosphatase 102, Troponin I < 0.028, C-Reactive Protein High Sensitivity 0.81H, B-Type Natriuretic Peptide 1356.3H, Total Protein 7.7, Albumin 4.1 02/18/23 12:44: Urine Color YELLOW, Urine Clarity CLEAR, Urine pH 5.5, Urine Specific [place] 1.015L, Urine Protein NEGATIVE, Urine Glucose (UA) NEGATIVE, Urine Ketones NEGATIVE, Urine Nitrite NEGATIVE, Urine Bilirubin NEGATIVE, Urine Urobilinogen 0.2, Urine Leukocyte Esterase NEGATIVE, Urine RBC (Auto) NEGATIVE, Urine RBC NONE, Urine WBC NONE, Urine Squamous Epithelial Cells NONE, Urine Crystals NONE, Urine Bacteria NEGATIVE, Urine Casts NONE, Urine Mucus NEGATIVE, Urine Culture Indicated NO 02/18/23 16:21: Glucometer 105 02/18/23 20:32: Glucometer 238H 02/19/23 04:34: White Blood Count 11.4H, Red Blood Count 5.30, Hemoglobin 15.5, Hematocrit 48, Mean Corpuscular Volume 90, Mean Corpuscular Hemoglobin 29, Mean Corpuscular Hemoglobin Concent 33, Red Cell Distribution Width 13.7, Platelet Count 216, Mean Platelet Volume 9.4, Immature Granulocyte % (Auto) 0, Neutrophils (%) (Auto) 80H, Lymphocytes (%) (Auto) 7L, Monocytes (%) (Auto) 12, Eosinophils (%) (Auto) 0, Basophils (%) (Auto) 1, Neutrophils # (Auto) 9.1H, Lymphocytes # (Auto) 0.8L, Monocytes # (Auto) 1.4H, Eosinophils # (Auto) 0.0, Basophils # (Auto) 0.1, Immature Granulocyte # (Auto) 0.0, Neutrophils % (Manual) 85, Lym phocytes % (Manual) 6, Monocytes % (Manual) 9, Blood Morphology Comment NORMAL, Sodium Level 141, Potassium Level 3.0L, Chloride Level 105, Carbon Dioxide Level 23, Anion Gap 13, Blood Urea Nitrogen 15, Creatinine 0.84, Estimat Glomerular Filtration Rate 88, BUN/Creatinine Ratio 18, Glucose Level 103, Calcium Level 8.7, Corrected Calcium 9.0, Total Bilirubin 2.4H, Aspartate Amino Transf (AST/SGOT) 16, Alanine Aminotransferase (ALT/SGPT) 6, Alkaline Phosphatase 97, T otal Protein 6.4, Albumin 3.6, Triglycerides Level 74, Cholesterol Level 111, LDL Cholesterol Direct 78, VLDL Cholesterol 15, HDL Cholesterol 32L, Thyroid Stimulating Hormone (TSH) 1.26 02/19/23 05:57: Glucometer 115H 02/19/23 11:03: Glucometer 197H DEVEN RODGERS DO Feb 19, 2023 11:37
[2023-02-19] MEDS ORDERED: ACET-2422 PO (11:44)
[2023-02-19] MEDS ORDERED: CETI10TA17 PO (11:44)
[2023-02-19] MEDS ORDERED: MAGN250T35 PO (11:44)
[2023-02-19] MEDS: LEVODOPA PO SCH ×3 (11:57→23:34)
[2023-02-19] MEDS: CARBIDOPA PO SCH ×3 (11:57→23:34)
--- NOTE | 2023-02-19 13:40 | Progress Note ---
CRYSTAL FRANCO 02/19/23 1340: Subjective Date Seen by a Provider: Feb 19, 2023 Time Seen by a Provider: 11:10 Subjective/Events-last exam 02/19/2023: CC: CHF HPI: Deejay, 78M, notes that he feels much improved from yesterday. He notes that the swelling in his legs has decreased. He denies any chest pain or current SOB. His biggest concern is his bladder, noting that his jiménez has blood in it. Deejay notes that he has prostate enlargement, which made placing the catheter difficult. He notes that he was urinating a lot yesterday. Despite jiménez place ment, Deejay notes that he has mild pain with urination. Deejay is glad that he has improved and has no other concerns. Review of Systems General: No Chills, No Night Sweats, No Fatigue, No Malaise, No Appetite, No Other HEENT: No Head Aches, No Visual Changes, No Eye Pain, No Ear Pain, No Dysphasia, No Sinus Congestion, No Post Nasal Drip, No Sore Throat, No Other Pulmonary: No Dyspnea, No Cough, No Pleuritic Chest Pain, No Other Cardiovascular: No: Chest Pain, Palpitations, Orthopnea, Paroxysmal Noc. Dyspnea, Edema, Lt Headedness, Other Gastrointestinal: No: Nausea, Vomiting, Abdominal Pain, Diarrhea, Constipation, Melena, Hematochezia, Other Genitourinary: Dysuria, Hematuria (mild), Other (jiménez in place ) Musculoskeletal: No: other, neck pain, shoulder pain, arm pain, back pain, hand pain, leg pain, foot pain Neurological: No: Weakness, Numbness, Incoordination, Change in speech, Confusion, Seizures, Other Objective Exam Last Set of Vital Signs Vital Signs Date Time Temp Pulse Resp B/P (MAP) Pulse Ox O2 Delivery O2 Flow Rate FiO2 02/19/23 12:06 68 02/19/23 08:44 99 Room Air 02/19/23 08:00 16 144/79 (100) 02/19/23 04:00 2.00 02/18/23 19:29 36.3 Capillary Refill : I&O Intake and Output 02/19/23 00:00 Intake Total 750 ml Output Total 4100 ml Balance -3350 ml Intake Oral 750 ml Output Urine Total 4100 ml Bladder Scan Volume Amount 293 ml Daily Weight Change No General: Alert, Oriented X3, Cooperative, No Acute Distress HEENT: EOMI, Mucous Memb Moist/[place] Neck: Supple, No JVD Lungs: Normal Air Movement, Other (basilar crackles present ) Heart: Regular Rate, Normal S1, Normal S2, Gallops (S3 noted ) Abdomen: Normal Bowel Sounds, No Tenderness Extremities: No Clubbing, No Cyanosis, No Edema, Normal Pulses Skin: No Significant Lesion Neuro: Normal Speech, Normal Tone, Sensation Intact, Cranial Nerves 3-12 NL Results Lab Laboratory Tests 02/18/23 16:21: Glucometer 105 02/18/23 20:32: Glucometer 238H 02/19/23 04:34: White Blood Count 11.4H, Red Blood Count 5.30, Hemoglobin 15.5, Hematocrit 48, Mean Corpuscular Volume 90, Mean Corpuscular Hemoglobin 29, Mean Corpuscular Hemoglobin Concent 33, Red Cell Distribution Width 13.7, Platelet Count 216, Mean Platelet Volume 9.4, Immature Granulocyte % (Auto) 0, Neutrophils (%) (Auto) 80H, Lymphocytes (%) (Auto) 7L, Monocytes (%) (Auto) 12, Eosinophils (%) (Auto) 0, Basophils (%) (Auto) 1, Neutrophils # (Auto) 9.1H, Lymphocytes # (Auto) 0.8L, Monocytes # (Auto) 1.4H, Eosinophils # (Auto) 0.0, Basophils # (Auto) 0.1, Immature Granulocyte # (Auto) 0.0, Neutrophils % (Manual) 85, Lymphocytes % (Manual) 6, Monocytes % (Manual) 9, Blood Morphology Comment NORMAL, Sodium Level 141, Potassium Level 3.0L, Chloride Level 105, Carbon D ioxide Level 23, Anion Gap 13, Blood Urea Nitrogen 15, Creatinine 0.84, Estimat Glomerular Filtration Rate 88, BUN/Creatinine Ratio 18, Glucose Level 103, Calcium Level 8.7, Corrected Calcium 9.0, Total Bilirubin 2.4H, Aspartate Amino Transf (AST/SGOT) 16, Alanine Aminotransferase (ALT/SGPT) 6, Alkaline Phosphatase 97, Total Protein 6.4, Albumin 3.6, Triglycerides Level 74, Cholesterol Level 111, LDL Cholesterol Direct 78, VLDL Cholesterol 15, HDL Cholesterol 32L, Thyroid Stimulating Hormone (TSH) 1.26 02/19/23 05:57: Glucometer 115H 02/19/23 11:03: Glucometer 197H Assessment/Plan Assessment/Plan Assess & Plan/Chief Complaint 02/19/2023: A/P -Acute Ischemic Dilated Cardiomyopathy (ischemic HFrEF) * EF 15-20% * Cardiology management (Dr. Fung) * Potential PTCA * Lasix * Spironolactone, Lisinopril, Metoprolol -Acute on Chronic Hypoxic Respiratory Failure * Lasix -CAD * Dr. Fung consultation * NPO at midnight * Potential PTCA on 02/20 * previously considered inoperable -Urinary Retention * Jiménez catheter placement -hx of AFib * CHADSVASC 3, eliquis PO resumed * Cardiology consult -PD * Carbidopa/Levodopa -Dementia * Aricept, Memantine BIRGIT RODGERS DO 02/19/23 2011: Subjective Subjective/Events-last exam CHFImproved Hematuria is an issue Fluids urology follow-up at the bedside Ejection fraction 10% cardiac cath tomorrow Objective Exam General: Alert, Oriented X3, Cooperative, No Acute Distress Lungs: Clear to Auscultation Psych/Mental Status: Mental Status NL Assessment/Plan Assessment/Plan Assess & Plan/Chief Complaint Urinary retention management Monitor Jiménez Cardiac cath tomorrow Supervisory-Addendum Brief Verification & Attestation Participated in pt care: history, MDM, physical Personally performed: exam, history, MDM, supervision of care Care discussed with: Medical Student Procedures: n/a Results interpretation: Verified all documentation Verification and Attestation of Medical Student E/M Service A medical student performed and documented this service in my presence. I reviewed and verified all information documented by the medical student and made modifications to such information, when appropriate. I personally performed the physical exam and medical decision making. Birgit Rodgers Feb 19, 2023,20:10 CRYSTAL FRANCO Feb 19, 2023 13:40 BIRGIT RODGERS DO Feb 19, 2023 20:11
[2023-02-19] MEDS: oxyCODONE IMMEDIATE RELEASE 5 MG TABLET PO PRN (14:13)
[2023-02-19] MEDS ORDERED: APIXABAN 5 MG TABLET PO SCH (21:00)
[2023-02-19] MEDS: DONEPEZIL 10 MG TABLET PO SCH (21:43)
[2023-02-19] MEDS: MEMANTINE 10 MG TABLET PO SCH (21:43)
[2023-02-19] MEDS ORDERED: meTOprolol TARTRATE (IR) 50 MG TABLET ONE (21:45)
[2023-02-20] VITALS (18 sets, daily range): BP systolic 128–177; BP diastolic 73–112
[2023-02-20 04:53] LABS: BASOPHILS % (AUTO) 1 % (0-10); EOSINOPHILS % (AUTO) 0 % (0-10); HEMATOCRIT 45 % (40-54); HEMOGLOBIN 14.5 g/dL (13.3-17.7); LYMPHOCYTES # (AUTO) 0.7 10^3/uL (1.0-4.0); LYMPHOCYTES % (AUTO) 8 % (12-44); MEAN CORPUSCULAR HEMOGLOBIN 29 pg (25-34); MEAN CORPUSCULAR HGB CONC 32 g/dL (32-36); MEAN CORPUSCULAR VOLUME 90 fL (80-99); MEAN PLATELET VOLUME 9.3 fL (9.0-12.2); MONOCYTES # (AUTO) 1.1 10^3/uL (0.0-1.0); MONOCYTES % (AUTO) 12 % (0-12); NEUTROPHILS % (AUTO) 79 % (42-75); PLATELET COUNT 207 10^3/uL (130-400); WHITE BLOOD COUNT 8.9 10^3/uL (4.3-11.0)
[2023-02-20 05:06] LABS: ALANINE AMINOTRANSFERASE < 6 U/L (0-55); ALBUMIN 3.6 GM/DL (3.2-4.5); ALKALINE PHOSPHATASE 94 U/L (40-136); BILIRUBIN,TOTAL 2.8 MG/DL (0.1-1.0); BUN/CREATININE RATIO 13; CALCIUM 8.8 MG/DL (8.5-10.1); CARBON DIOXIDE 21 MMOL/L (21-32); CHLORIDE 106 MMOL/L (98-107); CREATININE SERUM 0.82 MG/DL (0.60-1.30); GFR ESTIMATED 89; GLUCOSE 115 MG/DL (70-105); POTASSIUM 3.7 MMOL/L (3.6-5.0); SODIUM 141 MMOL/L (135-145); TOTAL PROTEIN 6.6 GM/DL (6.4-8.2)
[2023-02-20 05:11] LABS: INR 1.8 (0.8-1.4); PROTHROMBIN TIME PATIENT 20.8 SEC (12.2-14.7)
[2023-02-20] MEDS: inSUlin ASPART 1 UNIT/0.01 ML (PER UNIT) SC SCH ×4 (05:24→20:34)
[2023-02-20] MEDS: CARBIDOPA PO SCH ×4 (06:03→23:42)
[2023-02-20] MEDS: LEVODOPA PO SCH ×4 (06:03→23:42)
[2023-02-20] MEDS ORDERED: LIDOCAINE UROJET 2% GEL 10 ML PKG ONE (07:21)
[2023-02-20] MEDS ORDERED: LIDOCAINE 1% INJ 20 ML VIAL ONE (09:00)
[2023-02-20] MEDS ORDERED: HEParin (CATH LAB) 2,000 ML IV ONE (09:01)
--- NOTE | 2023-02-20 09:09 | Cardiology Progress Note ---
Subjective Date Seen by Provider: Feb 20, 2023 Time Seen by Provider: 09:05 Subjective/Events-last exam Patient is in bed, complaining of bladder and penile pain and spasm of his rectum. Denies any active chest pain Objective-Cardiology Exam Last Set of Vital Signs Vital Signs 02/18/23 02/20/23 02/20/23 02/20/23 19:29 06:00 07:06 08:00 Temp 36.3 Pulse 79 Resp 11 B/P (MAP) 152/93 (112) Pulse Ox 97 O2 Delivery Room Air O2 Flow Rate 2.00 I&O Intake and Output 02/20/23 00:00 Intake Total 1150 ml Output Total 3700 ml Balance -2550 ml Intake Oral 1150 ml Output Urine Total 3550 ml Post Void Residual 150 ml Bladder Scan Volume Amount 250 ml 250 ml General: Alert, Oriented X3, Cooperative, No Acute Distress HEENT: EOMI, Mucous Memb Moist/[place] Neck: Supple, No JVD Lungs: Clear to Auscultation Heart: Regular Rate, Normal S1, Normal S2, Gallops (S3 noted ) Abdomen: Normal Bowel Sounds, No Tenderness Extremities: No Clubbing, No Cyanosis, No Edema, Normal Pulses Skin: No Significant Lesion Neuro: Normal Speech, Normal Tone, Sensation Intact, Cranial Nerves 3-12 NL Psych/Mental Status: Mental Status NL Results Lab Laboratory Tests 02/20/23 04:37 A/P-Cardiology Admission Diagnosis Congestive heart failure, acute ischemic dilated cardiomyopathy, systolic dysfunction Coronary artery disease Hypertension Hyperlipidemia Assessment/Plan Congestive heart failure, acute left ventricular systolic dysfunction, most probably ischemic cardiomyopathy Patient has inoperable severe coronary artery disease by cardiac catheterization in January 2021 Responding well to diuretics. Continue to monitor 2D echo was done on February 18, 2023 with four-chamber dilatation, severe diffuse left ventricular hypokinesia with ejection fraction 15 to 20%, mild mitral regurgitation, moderate tricuspid regurgitation, PA pressure 60 to 65 mmHg Chest pain, has history of chronic stable angina. Reports improvement in his symptoms recently Hematuria, worsening. Unknown etiology We will hold anticoagulation for now. Coronary artery disease- Cardiac catheterization done on October 22, [address] [facility] revealing left main with 25 percent narrowing. LAD had apical 75-80 percent narr owing reduced to less than 25 percent following balloon angioplasty. First diagonal with 30-40 percent narrowing. Ramus branch with mild 25 percent narrowing. Circumflex artery with 30-40 percent diffuse narrowing and small system. RCA was moderately large vessel with 20-25 percent stenosis. Posterior lateral branch had 80 percent narrowing reduced to less than 25 percent following balloon angioplasty. PDA had 70 percent mid narrowing reduced to less than 25 percent following balloon angioplasty. Right femoral artery was widely patent. Cardiac catheterization done May 09, 2016 revealed small vessel disease, especially in the circumflex artery that is not amenable to intervention. LAD has moderate disease with no obstructive disease. RCA had moderate disease at proximal and distal portion. Right PDA had significant disease but also small artery not amenable to intervention, stress test done in showing diaphragmatic attenuation and intestinal attenuation affecting the quality of the images, fixed defect at the inferior wall with ejection fraction 38 percent. LHC done 01/25/21 showing calcified coronary system with severe stenosis at the distal right PDA, distal LAD Conservative management was recommended previously. I am concerned about progression of his disease. Planning for cardiac catheterization possible PTCA in a.m. and reevaluate his coronary anatomy Dysuria,hematuria, status post Babb catheter placement Monitor urine output Severe pulmonary hypertension, PA pressure was 60 mmHg, last echo done September 2021 showing PA pressure 55 mmHg Chronic permanent atrial fibrillation, rate controlled. Continue to monitor [id number] score is 3, yearly risk of stroke without oral anticoagulation is 3.2 percent. Maintained on Eliquis Hypertension, controlled, Restart lisinopril 40 mg daily, metoprolol 50 mg twice daily Hold amlodipine for now and adding Aldactone and evaluate tolerance and response Depression/anxiety-managed by primary care physician Diabetes mellitus, followed and managed by primary care physician. Hyperlipidemia, maintained on Lipitor 10 mg daily. LDL 78, total cholesterol 111. Continue to monitor Obstructive sleep apnea, had a sleep study and recommended CPAP Patient prefer not to have it Carotid stenosis, nonobstructive carotid artery stenosis per carotid duplex done March 2022. Continue to monitor Supervisory-Addendum Brief Supervisory Addendum Participated in pt care: history, MDM, physical Personally performed: exam, history, MDM Care discussed with: BHAVNA Results interpretation: Verified all documentation Notes: Patient was seen and evaluated with María, examination performed, management plan was discussed, agree with the current scribed note, I made few changes to the note using Italic font Patient is having hematuria, fecal incontinence I will attempt for cardiac catheterization with radial access and try to avoid groin access He is reporting improvement in his symptoms. No chest pain was reported. He is having frequent bowel movement with incontinence. MARÍA HERRING PA-C Feb 20, 2023 09:09 SKYLAR CAMPOS MD Feb 20, 2023 09:50
[2023-02-20] MEDS ORDERED: PHENAZOPYRIDINE 100 MG TABLET PO ONE (09:30)
[2023-02-20] MEDS: DOCUSATE SODIUM 100 MG CAPSULE PO SCH ×2 (09:39→20:35)
[2023-02-20] MEDS: SENNOSIDES 8.6 MG TABLET PO SCH ×2 (09:39→20:34)
--- NOTE | 2023-02-20 09:41 | Progress Note ---
SALVADORCRYSTAL 02/20/23 0941: Subjective Date Seen by a Provider: Feb 20, 2023 Time Seen by a Provider: 09:32 Subjective/Events-last exam 02/18/2023: CC: CHF HPI: Deejay, 78M, notes that last night was more difficult. He is endorsing pain that is in the rectum and penis that is sharp and 8/10. The pain appears randomly and is causing discomfort. Additionally, Deejay notes that there is still a feeling of increased frequency of urination despite having a catheter placed. Deejays notes that prior to admission, Deejay had a UTI and since has had increased urinary frequency. He was also passing clots in his urine at home. Today, Deejay has hematuria that has clots and is receiving bladder irrigation. He notes that this intervention has had no impact on his pain. Deejay is still NPO for potential PTCA, but unsure if that will occur today due to bladder changes. Deejay is in good spirits and understands the current treatment plan. He notes no other concerns. Review of Systems General: No Chills, No Night Sweats, No Fatigue HEENT: No Head Aches, No Visual Changes Pulmonary: No Dyspnea, No Cough, No Pleuritic Chest Pain Cardiovascular: No: Chest Pain, Palpitations, Orthopnea, Edema Gastrointestinal: No: Nausea, Vomiting, Abdominal Pain Genitourinary: Hematuria Musculoskeletal: No: neck pain, shoulder pain, back pain Neurological: No: Weakness, Numbness, Change in speech, Confusion Objective Exam Last Set of Vital Signs Vital Signs Date Time Temp Pulse Resp B/P (MAP) Pulse Ox O2 Delivery O2 Flow Rate FiO2 02/20/23 07:06 79 02/20/23 06:00 11 152/93 (112) Nasal Cannula 2.00 02/20/23 00:00 99 02/18/23 19:29 36.3 Capillary Refill : I&O Intake and Output 02/20/23 00:00 Intake Total 1150 ml Output Total 3700 ml Balance -2550 ml Intake Oral 1150 ml Output Urine Total 3550 ml Post Void Residual 150 ml Bladder Scan Volume Amount 250 ml 250 ml General: Alert, Oriented X3, Cooperative, No Acute Distress HEENT: PERRLA, Mucous Memb Moist/[place] Neck: Supple, No JVD, Other (2+ carotid, mild bruit ) Lungs: Clear to Auscultation, Normal Air Movement Heart: Regular Rate, Gallops, Other (S3 ) Abdomen: Normal Bowel Sounds, Soft, No Tenderness Extremities: No Edema, Normal Pulses Skin: No Rashes, No Breakdown Neuro: Normal Speech, Normal Tone, Sensation Intact, Cranial Nerves 3-12 NL Results Lab Laboratory Tests 02/19/23 11:03: Glucometer 197H 02/19/23 15:23: Glucometer 165H 02/19/23 20:35: Glucometer 127H 02/20/23 04:37: White Blood Count 8.9, Red Blood Count 4.99, Hemoglobin 14.5, Hematocrit 45, Denita n Corpuscular Volume 90, Mean Corpuscular Hemoglobin 29, Mean Corpuscular Hemoglobin Concent 32, Red Cell Distribution Width 14.0, Platelet Count 207, Mean Platelet Volume 9.3, Immature Granulocyte % (Auto) 1, Neutrophils (%) (Auto) 79H, Lymphocytes (%) (Auto) 8L, Monocytes (%) (Auto) 12, Eosinophils (%) (Auto) 0, Basophils (%) (Auto) 1, Neutrophils # (Auto) 7.0, Lymphocytes # (Auto) 0.7L, Monocytes # (Auto) 1.1H, Eosinophils # (Auto) 0.0, Basophils # (Auto) 0.0, Immature Granulocyte # (Auto) 0.0, Prothrombin Time 20.8H, INR Comment 1.8H, Activated Partial Thromboplast Time 44H, Sodium Level 141, Potassium Level 3.7, Chloride Level 106, Carbon Dioxide Level 21, Anion Gap 14, Blood Urea Nitrogen 11, Creatinine 0.82, Estimat Glomerular Filtration Rate 89, BUN/Creatinine Ratio 13, Glucose Level 115H, Calcium Level 8.8, Corrected Calcium 9.1, Total Bilirubin 2.8H, Aspartate Amino Transf (AST/SGOT) 13, Alanine Aminotransferase (ALT/SGPT) < 6, Alkaline Phosphatase 94, Total Protein 6.6, Albumin 3.6 Assessment/Plan Assessment/Plan Assess & Plan/Chief Complaint 02/20/2023: A/P -Hematuria * Bladder irrigation * Catheter replaced after pervious failed * Consulting Urology at [place] -Bladder Spasm * Belladonna suppository -Acute Ischemic Dilated Cardiomyopathy (ischemic HFrEF) * EF 15-20% * Cardiology management (Dr. Fung) * PTCA possible today, barring bladder concerns * Lasix * Spironolactone, Lisinopril, Metoprolol -Acute on Chronic Hypoxic Respiratory Failure * Lasix -CAD * Dr. Fung consultation * NPO * previously considered inoperable -hx of AFib * CHADSVASC 3, eliquis PO -PD * Carbidopa/Levodopa -Dementia * Aricept, Memantine BIRGIT RODGERS DO 02/21/23 0410: Subjective Subjective/Events-last exam Continuous bladder irrigation is going well Cardiac cath performed but no intervention due to hematuria which would have required additional blood thinners Patient feels better Cannot obtain CT scan with contrast load of contrast during cardiac cath We will reach out to urology tomorrow Review of Systems General: Fatigue, Malaise Genitourinary: Hematuria Objective Exam General: Alert, Oriented X3, Cooperative, No Acute Distress Lungs: Clear to Auscultation, Normal Air Movement Heart: Regular Rate, Normal S1, Normal S2, No Murmurs Psych/Mental Status: Mental Status NL, Mood NL Assessment/Plan Assessment/Plan Assess & Plan/Chief Complaint Will likely need to transfer tomorrow Continuous bladder irrigation to be maintained Supervisory-Addendum Brief Verification & Attestation Participated in pt care: history, MDM, physical Personally performed: exam, history, MDM, supervision of care Care discussed with: Medical Student Procedures: n/a Results interpretation: Verified all documentation Verification and Attestation of Medical Student E/M Service A medical student performed and documented this service in my presence. I reviewed and verified all information documented by the medical student and made modifications to such information, when appropriate. I personally performed the physical exam and medical decision making. Birgit Rodgers Feb 21, 2023,04:08 CRYSTAL FRANCO Feb 20, 2023 09:41 BIRGIT RODGERS DO Feb 21, 2023 04:10
--- NOTE | 2023-02-20 09:50 | Cardiac Procedure Note-CS/ASA ---
Pre-Procedure Note Pre-Op Procedure Note Date of Available H&P: Feb 20, 2023 Date H&P Reviewed: Feb 20, 2023 Time H&P Reviewed: 09:50 History & Physical: H&P Reviewed, Patient Examed, No changes noted Pre-Operative Diagnosis: CAD Moderate Sedation PreProcedure Time 09:50 ASA Score 3 Airway Lungs Heart ASA score ASA 1: a normal healthy patient ASA 2: a patient with a mild systemic disease (mid diabetes, controlled hypertension, obesity ASA 3: a patient with a severe systemic disease that limits activity (angina, COPD, prior Myocardial infarction) ASA 4: a patient with an incapacitating disease that is a constant threat to life (CHF, renal failure) ASA 5: a moribund patient not expected to survive 24 hrs. (ruptured aneurysm) ASA 6: a declared brain- patient whose organs are being harvested. For emergent operations, add the letter E after the classification Mallampati Classification Grade 3 Sedation Plan Analgesia, Amnesia, Plan communicated to team members, Discussed options with patient/fam, Discussed risks with patient/fam The patient is an appropriate candidate to undergo the planned procedure, sedation, and anesthesia. The patient immediately re-assessed prior to indication. SKYLAR CAMPOS MD Feb 20, 2023 09:50
[2023-02-20] MEDS ORDERED: NS IV 1000 ML 1,000 ML ONE (09:51)
[2023-02-20] MEDS ORDERED: NITRO DRIP 25000 MCG/D5W 250 ML IV ONE (09:51)
[2023-02-20] MEDS ORDERED: VERAPAMIL 5 MG/2 ML (CALAN) VIAL IV ONE (09:51)
[2023-02-20] MEDS ORDERED: MIDAZOLAM INJ 5 MG/5 ML VIAL ONE (09:51)
[2023-02-20] MEDS ORDERED: HEParin 1000 UNIT/ML (10ML VIAL) FOR BOLUS ONE (09:51)
[2023-02-20] MEDS ORDERED: fentaNYL INJECTION 100 MCG/2 ML VIAL ONE (09:51)
[2023-02-20] MEDS: NS IV 1000 ML 1,000 ML IV SCH ×2 (11:00→20:35)
--- NOTE | 2023-02-20 11:04 | Cardiac Cath Report ---
Cardiac Cath Report Physician (s)/Service And Repair Supervisor (s) Physician SKYLAR CAMPOS MD Pre-Procedure Diagnosis Pre-Procedure Diagnosis: CAD Post-Procedure Note Procedure Start Date: Feb 20, 2023 Name of Procedure: Left heart catheterization Left ventriculogram IFR to LAD IFR to ramus intermedius IFR to left circumflex artery IFR to the right coronary artery Findings/Procedure Note PROCEDURE NOTE: 78 years old gentleman with history of coronary artery disease, admitted with acute congestive heart failure with elevation in troponin, cardiac catheterization was advised. After explaining the procedure to the patient, all pros and cons were explained, all questions were answered. The patient signed the consent and then he was placed in the cardiac catheterization laboratory. Groin was prepped in SL fashion local anesthesia was used. Sheath placed in the right radial artery, Kistler catheter was advanced to the left ventricular cavity, left ventriculogram was done, pullback LV to aorta was done, engaged the left coronary and right coronary system and angiogram was done. Yaneth left guide was used and engaged the left coronary system then IFR wire was advanced in the LAD, IFR was measured in the LAD then pullback through the LAD was done then I advanced IFR wire in the ramus intermedius and angiogram gram was done then pressure was measured then pulled back the wire and redirected it in the circumflex artery and did IFR measurement then I remove the wire and exchanged the guide and used Yaneth right guide and engaged the right coronary artery then I advanced the IFR wire in the right coronary artery and parked distally. iFR pullback was done again to the right coronary artery. At the end of the procedure the sheath was removed. Vascular band was used FINDINGS: Hemodynamics LV 110/15, end-diastolic pressure 15 Aorta 104/63 mean of 81 ANATOMY: Left Main is free of obstructive disease Left Anterior Descending is small to moderate in size. Mid LAD has 80% stenosis with IFR in the mid LAD 0.83. Distal LAD has 70% stenosis with a step up in the IFR by 10 degrees. Diagonal artery has subtotal occlusion proximally, very small artery Ramus intermedius is moderate in size with 60% stenosis proximally, IFR through the ramus intermedius was 0.91. Left Circumflex is very small artery, nondominant artery, IFR through the circumflex artery was 0.97 Right Coronary Artery is a dominant artery, total occlusion of the right PDA that is very small artery. The distal right coronary artery has 80 to 90% stenosis with IFR 0.81 LV Gram was done showing dilated left ventricle with ejection fraction 40%. Improvement compared to the earlier echo Dominance right coronary artery CONCLUSION: Severe stenosis in the mid and distal LAD that appeared to be amendable to percutaneous intervention Severe stenosis at the distal right coronary artery that appeared to be amendable to intervention Severe stenosis/subtotal occlusion in the mid diagonal artery and the distal ri ght posterior descending artery they both are very small arteries not amendable to intervention Very small ramus intermedius and circumflex arteries with nonobstructive disease Dilated left ventricle with diffuse hypokinesia with ejection fraction 40%, imp rovement compared to the earlier study on echocardiogram DISCUSSION AND RECOMMENDATION: Continue to maximize medical therapy. Patient cannot tolerate long-term anticoagulation due to the active hematuria. Once his hematuria resolved, I recommend staged intervention to the LAD and right coronary artery if patient is able to tolerate anticoagulation. Anesthesia Type: Conscious Sedation Estimated blood loss (mL): 25 ml Contrast Amount: 95 ml Total Radiation Dose: 1986 mGy Post-Procedure Diagnosis Post-operative diagnosis: Coronary artery disease Non-ST elevation myocardial infarction Congestive heart failure, acute left ventricular systolic dysfunction, ischemic cardiomyopathy Hypertension Hyperlipidemia SKYLAR CAMPOS MD Feb 20, 2023 11:04
[2023-02-20] MEDS: SPIRONOLACTONE 25 MG TABLET PO SCH (12:09)
[2023-02-20] MEDS: EMPAGLIFLOZIN 10 MG TABLET PO SCH (12:09)
[2023-02-20] MEDS: ALLOPURINOL 100 MG TABLET PO SCH (12:13)
[2023-02-20] MEDS: FUROSEMIDE 20 MG TABLET PO SCH (12:14)
[2023-02-20] MEDS: OMEPRAZOLE 20 MG CAPSULE PO SCH (12:15)
[2023-02-20] MEDS: meTOprolol TARTRATE (IR) 50 MG TABLET PO SCH ×2 (12:15→21:18)
[2023-02-20] MEDS: ESCITALOPRAM 20MG TABLET PO SCH (12:16)
[2023-02-20] MEDS: MAGNESIUM OXIDE 250 MG PO SCH (12:17)
[2023-02-20] MEDS: HYDROmorphone INJECTION 2 MG/ML VIAL IV PRN ×2 (18:18→21:13)
[2023-02-20] MEDS: MEMANTINE 10 MG TABLET PO SCH (21:17)
[2023-02-20] MEDS: DONEPEZIL 10 MG TABLET PO SCH (21:19)
[2023-02-20] MEDS ORDERED: cloNIDine 0.1 MG TABLET ONE (23:41)
[2023-02-20] MEDS ORDERED: cloNIDine 0.1 MG TABLET PO PRN ×2 (23:45→23:55)
[2023-02-21] MEDS: HYDROmorphone INJECTION 2 MG/ML VIAL IV PRN ×3 (01:32→06:54)
[2023-02-21] MEDS ORDERED: BACLOFEN 10 MG TABLET ONE (01:52)
[2023-02-21] MEDS: oxyCODONE IMMEDIATE RELEASE 5 MG TABLET PO PRN (01:56)
[2023-02-21] MEDS ORDERED: BACLOFEN 10 MG TABLET PO PRN ×2 (02:00→02:15)
[2023-02-21 03:00] VITALS: BP 168/100
[2023-02-21 05:01] LABS: BASOPHILS # (AUTO) 0.1 10^3/uL (0.0-0.1); BASOPHILS % (AUTO) 0 % (0-10); EOSINOPHILS % (AUTO) 0 % (0-10); HEMATOCRIT 42 % (40-54); HEMOGLOBIN 13.6 g/dL (13.3-17.7); LYMPHOCYTES # (AUTO) 0.7 10^3/uL (1.0-4.0); LYMPHOCYTES % (AUTO) 4 % (12-44); MEAN CORPUSCULAR HEMOGLOBIN 30 pg (25-34); MEAN CORPUSCULAR HGB CONC 32 g/dL (32-36); MEAN CORPUSCULAR VOLUME 92 fL (80-99); MEAN PLATELET VOLUME 9.5 fL (9.0-12.2); MONOCYTES # (AUTO) 2.3 10^3/uL (0.0-1.0); MONOCYTES % (AUTO) 12 % (0-12); NEUTROPHILS # (AUTO) 15.5 10^3/uL (1.8-7.8); NEUTROPHILS % (AUTO) 83 % (42-75); PLATELET COUNT 222 10^3/uL (130-400); WHITE BLOOD COUNT 18.6 10^3/uL (4.3-11.0)
[2023-02-21 05:13] LABS: ALBUMIN 3.8 GM/DL (3.2-4.5); CHLORIDE 106 MMOL/L (98-107); POTASSIUM 4.5 MMOL/L (3.6-5.0); SODIUM 140 MMOL/L (135-145)
[2023-02-21 05:14] LABS: CALCIUM 9.4 MG/DL (8.5-10.1)
[2023-02-21 05:15] LABS: GLUCOSE 156 MG/DL (70-105)
[2023-02-21 05:16] LABS: CARBON DIOXIDE 21 MMOL/L (21-32)
[2023-02-21 05:17] LABS: BILIRUBIN,TOTAL 3.3 MG/DL (0.1-1.0)
[2023-02-21] MEDS: NS IV 1000 ML 1,000 ML IV SCH (05:18)
[2023-02-21 05:19] LABS: ALKALINE PHOSPHATASE 93 U/L (40-136); CREATININE SERUM 1.21 MG/DL (0.60-1.30); GFR ESTIMATED 61
[2023-02-21 05:20] LABS: BUN/CREATININE RATIO 17
[2023-02-21 05:22] LABS: ALANINE AMINOTRANSFERASE < 6 U/L (0-55)
[2023-02-21] MEDS: inSUlin ASPART 1 UNIT/0.01 ML (PER UNIT) SC SCH (05:40)
[2023-02-21] MEDS: LEVODOPA PO SCH (05:40)
[2023-02-21] MEDS: CARBIDOPA PO SCH (05:40)
[2023-02-21 05:56] LABS: LYMPHOCYTES % (MANUAL) 9 %; MONOCYTES % (MANUAL) 7 %; NEUTROPHILS % (MANUAL) 84 %; RBC MORPH NORMAL
[2023-02-21 07:00] VITALS: BP 153/85
--- NOTE | 2023-02-21 08:40 | Cardiology Progress Note ---
Subjective Date Seen by Provider: Feb 21, 2023 Time Seen by Provider: 08:38 Subjective/Events-last exam Patient was seen at bedside, laying down comfortably, feeling better, still having hematuria Objective-Cardiology Exam Last Set of Vital Signs Vital Signs 02/21/23 02/21/23 03:00 07:00 Temp 36.3 Pulse 82 Resp 11 B/P (MAP) 153/85 (107) Pulse Ox 91 O2 Delivery Nasal Cannula O2 Flow Rate 2.00 I&O Intake and Output 02/21/23 00:00 Intake Total 6400 ml Output Total 36107 ml Balance -5000 ml Intake Oral 600 ml Other 5800 ml Output Urine Total 2200 ml Other 9200 ml General: Alert, Oriented X3, Cooperative, No Acute Distress HEENT: PERRLA, Mucous Memb Moist/[place] Neck: Supple, No JVD, Other (2+ carotid, mild bruit ) Lungs: Clear to Auscultation, Normal Air Movement Heart: Regular Rate, Normal S1, Normal S2, No Murmurs Abdomen: Normal Bowel Sounds, Soft, No Tenderness Extremities: No Edema, Normal Pulses Skin: No Rashes, No Breakdown Neuro: Normal Speech, Normal Tone, Sensation Intact, Cranial Nerves 3-12 NL Psych/Mental Status: Mental Status NL, Mood NL Results Lab Laboratory Tests 02/21/23 04:48 A/P-Cardiology Admission Diagnosis Congestive heart failure, acute ischemic dilated cardiomyopathy, systolic dysfunction Coronary artery disease Hypertension Hyperlipidemia Assessment/Plan Congestive heart failure, acute left ventricular systolic dysfunction, most probably ischemic cardiomyopathy Patient has inoperable severe coronary artery disease by cardiac catheterization in January 2021 Responding well to diuretics. Continue to monitor 2D echo was done on February 18, 2023 with four-chamber dilatation, severe diffuse left ventricular hypokinesia with ejection fraction 15 to 20%, mild mitral regurgitation, moderate tricuspid regurgitation, PA pressure 60 to 65 mmHg Chest pain, has history of chronic stable angina. Reports improvement in his symptoms recently Hematuria, worsening. Unknown etiology We will hold anticoagulation for now. Coronary artery disease- Cardiac catheterization done on October 22, [address] Adam Sharp [facility] revealing left main with 25 percent narrowing. LAD had apical 75-80 percent narrowing reduced to less than 25 percent following balloon angioplasty. First diagonal with 30-40 percent narrowing. Ramus branch with mild 25 percent narrowing. Circumflex artery with 30-40 percent diffuse narrowing and small system. RCA was moderately large vessel with 20-25 percent stenosis. Posterior lateral branch had 80 percent narrowing reduced to less than 25 percent following balloon angioplasty. PDA had 70 percent mid narrowing reduced to less than 25 percent following balloon angioplasty. Right femoral artery was widely patent. Cardiac catheterization done May 09, 2016 revealed small vessel disease, especially in the circumflex artery that is not amenable to intervention. LAD has moderate disease with no obstructive disease. RCA had moderate disease at proximal and distal portion. Right PDA had significant disease but also small artery not amenable to intervention, stress test done in showing diaphragmatic attenuation and intestinal attenuation affecting the quality of the images, fixed defect at the inferior wall with ejection fraction 38 percent. LHC done 01/25/21 showing calcified coronary system with severe stenosis at the distal right PDA, distal LAD Conservative management was recommended previously. Cardiac catheterization was done on February 20, 2023, patient has 2 significant lesion in the mid and distal LAD, significant lesion in the distal right coronary artery all these lesions are amendable to intervention. Severe stenosis in the first diagonal artery that is not amendable to intervention and severe stenosis in the first obtuse marginal artery that is not amendable to intervention. Ramus intermedius and proper circumflex artery are small arteries with normal IFR. Patient cannot tolerate aggressive anticoagulation at this time due to the active bleeding. Once seen and cleared by urologist will consider stenting of his arteries. Dysuria,hematuria, status post Babb catheter placement Arrangement for evaluation by urology is being made Severe pulmonary hypertension, PA pressure was 60 mmHg, last echo done September 2021 showing PA pressure 55 mmHg Chronic permanent atrial fibrillation, rate controlled. Continue to monitor [id number] score is 3, yearly risk of stroke without oral anticoagulation is 3.2 percent. Maintained on Eliquis Hypertension, controlled, Restart lisinopril 40 mg daily, metoprolol 50 mg twice daily Hold amlodipine for now and adding Aldactone and evaluate tolerance and response Depression/anxiety-managed by primary care physician Diabetes mellitus, followed and managed by primary care physician. Hyperlipidemia, maintained on Lipitor 10 mg daily. LDL 78, total cholesterol 111. Continue to monitor Obstructive sleep apnea, had a sleep study and recommended CPAP Patient prefer not to have it Carotid stenosis, nonobstructive carotid artery stenosis per carotid duplex done March 2022. Continue to monitor SKYLAR CAMPOS MD Feb 21, 2023 08:40
--- NOTE | 2023-02-21 09:26 | Progress Note ---
CRYSTAL FRANCO 02/21/23 0926: Progress Note 02/21/2023 CC: CHF Course: Deejay is a 78-year-old man that presented to the emergency room on 02/18 with concerns about shortness of breath and edema for the past 3 weeks. His dyspnea was worse with exertion and in particular lying flat. He was also having trouble sleeping at night and had to sleep in an inclined position. He also noted frequent urination in low volumes along with dribbling. He has numerous chronic health conditions including Parkinson's with dementia, atrial fibrillation, diabetes, and coronary artery disease. His echocardiogram also showed an EF of 10-15%. Due to CHF, diuretic treatment of his edema was indicated. For his edema, Lasix was given and showed improvement. His leg swelling resolved. Due to the increased diuresis, a jiménez catheter was placed. Deejay complained of his urination, and noted that the jiménez made these symptoms subside. On 02/20, there was noted hematuria that required bladder irrigation for clot removal. Nurses noted that the jiménez placement was easy despite a notably enlarged prostate. On 02/20 Dr. Fung, park attendant, was planning to do cardiac catheterization to measure blockage in the heart since Deejay has been diagnosed with acute ischemic dilated cardiomyopathy. After reviewing Deejay, Dr. Fung performed the cardiac catheterization on 02/20 and noted that there was mid-distal LAD and distal RCA blockages that could be improved with intervention. No intervention was performed due to Dr. Fung wanting to correct bladder concerns before considering PTCA. Additionally, Dr. Fung noted that his EF was closer to 40% during the catheterization. Due to continued hematuria, Deejay is being transferred to [facility] where he will have a urology consult to investigate the etiology of his issues. Deejay notes that he hasn't seen a urologist in a number of years. Deejay will be transferred with his jiménez catheter in place and will continue on his medications per discharge orders. Once bladder concerns are resolved, Deejay is encouraged to follow up with Dr. Fung for further cardiac interventions. No other concerns. BIRGIT RODGERS DO 02/22/23 0413: Supervisory-Addendum Brief Verification & Attestation Participated in pt care: history, MDM, physical Personally performed: exam, history, MDM, supervision of care Care discussed with: Medical Student Procedures: n/a Results interpretation: Verified all documentation Verification and Attestation of Medical Student E/M Service A medical student performed and documented this service in my presence. I reviewed and verified all information documented by the medical student and made modifications to such information, when appropriate. I personally performed the physical exam and medical decision making. Birgit Rodgers, Feb 22, 2023,04:13 CRYSTAL FRANCO Feb 21, 2023 09:26 BIRGIT RODGERS DO Feb 22, 2023 04:13
[2023-02-21] MEDS: DOCUSATE SODIUM 100 MG CAPSULE PO SCH (10:08)
[2023-02-21] MEDS: ESCITALOPRAM 20MG TABLET PO SCH (10:08)
[2023-02-21] MEDS: SENNOSIDES 8.6 MG TABLET PO SCH (10:09)
[2023-02-21] MEDS: meTOprolol TARTRATE (IR) 50 MG TABLET PO SCH (10:09)
[2023-02-21] MEDS: OMEPRAZOLE 20 MG CAPSULE PO SCH (10:09)
[2023-02-21] MEDS: EMPAGLIFLOZIN 10 MG TABLET PO SCH (10:10)
[2023-02-21] MEDS: ALLOPURINOL 100 MG TABLET PO SCH (10:10)
[2023-02-21] MEDS: FUROSEMIDE 20 MG TABLET PO SCH (10:10)
[2023-02-21] MEDS: MAGNESIUM OXIDE 250 MG PO SCH (10:10)
[2023-02-21] MEDS: SPIRONOLACTONE 25 MG TABLET PO SCH (10:10)
--- NOTE | 2023-02-21 10:27 | Discharge Summary ---
Diagnosis/Chief Complaint Date of Admission Feb 18, 2023 at 15:22 Date of Discharge Discharge Date: Feb 21, 2023 Discharge Diagnosis 02/20/2023: A/P -Hematuria * Bladder irrigation * Catheter replaced after pervious failed * [facility] -Bladder Spasm * Belladonna suppository -Acute Ischemic Dilated Cardiomyopathy (ischemic HFrEF) * EF 15-20% * Cardiology management (Dr. Fung) * PTCA possible today, barring bladder concerns * Lasix * Spironolactone, Lisinopril, Metoprolol -Acute on Chronic Hypoxic Respiratory Failure * Lasix -CAD * Dr. Fung consultation * NPO * previously considered inoperable -hx of AFib * CHADSVASC 3, eliquis PO -PD * Carbidopa/Levodopa -Dementia * Aricept, Memantine Discharge Summary Discharge Physical Examination Allergies: Coded Allergies: NKANo Known Allergies (Unverified Allergy, Mild, 09/19/17) Vitals & I&Os Vital Signs Date Time Temp Pulse Resp B/P (MAP) Pulse Ox O2 Delivery O2 Flow Rate FiO2 02/21/23 13:08 75 11 153/85 91 Nasal Cannula 2.00 02/21/23 03:00 36.3 General Appearance: Alert, Oriented X3, Cooperative Respiratory: Clear to Auscultation Cardiovascular: Regular Rate Psych/Mental Status: Mental Status NL Hospital Course Was the Problem List Reviewed?: Yes CC: CHF Course: Deejay is a 78-year-old man that presented to the emergency room on 02/18 with concerns about shortness of breath and edema for the past 3 weeks. His dyspnea was worse with exertion and in particular lying flat. He was also having trouble sleeping at night and had to sleep in an inclined position. He also noted frequent urination in low volumes along with dribbling. He has numerous chronic health conditions including Parkinson's with dementia, atrial fibrillation, diabetes, and coronary artery disease. His echocardiogram also showed an EF of 10-15%. Due to CHF, diuretic treatment of his edema was indicate d. For his edema, Lasix was given and showed improvement. His leg swelling resolved. Due to the increased diuresis, a jiménez catheter was placed. Deejay complained of his urination, and noted that the jiménez made these symptoms subside. On 02/20, there was noted hematuria that required bladder irrigation for clot removal. Nurses noted that the jiménez placement was easy despite a notab ly enlarged prostate. On 02/20 Dr. Fung, in tube conversion technician, was planning to do cardiac catheterization to measure blockage in the heart since Deejay has been diagnosed with acute ischemic dilated cardiomyopathy. After reviewing Deejay, Dr. Fung performed the cardiac catheterization on 02/20 and noted that there was mid-distal LAD and distal RCA blockages that could be improved with in tervention. No intervention was performed due to Dr. Fung wanting to correct bladder concerns before considering PTCA. Additionally, Dr. Fung noted that his EF was closer to 40% during the catheterization. Due to continued hematuria, Deejay is being transferred to [facility] where he will have a urology consult to investigate the etiology of his issues. Deejay notes that he hasn't seen a urologist in a number of years. Deejay will be transferred with his jiménez catheter in place and will continue on his medications per discharge orders. Once bladder concerns are resolved, Deejay is encouraged to follow up with Dr. Fung for further cardiac interventions. No other concerns. CRYSTAL FRANCO Labs (last 24 hrs) Laboratory Tests 02/18/23 11:49: White Blood Count 7.5, Red Blood Count 5.49, Hemoglobin 16.1, Hematocrit 51, Mean Corpuscular Volume 92, Mean Corpuscular Hemoglobin 29, Mean Corpuscular Hemoglobin Concent 32, Red Cell Distribution Width 13.9, Platelet Count 281, Mean Platelet Volume 9.7, Immature Granulocyte % (Auto) 0, Neutrophils (%) (Auto) 78H, Lymphocytes (%) (Auto) 11L, Monocytes (%) (Auto) 9, Eosinophils (%) (Auto) 0, Basophils (%) (Auto) 1, Neutrophils # (Auto) 5.9, Lymphocytes # (Auto) 0.9L, Monocytes # (Auto) 0.7, Eosinophils # (Auto) 0.0, Basophils # (Auto) 0.1, Immature Granulocyte # (Auto) 0.0, Sodium Level 141, Potassium Level 3.8, Chloride Level 109H, Carbon Dioxide Level 21, Anion Gap 11, Blood Urea Nitrogen 17, Creatinine 0.86, Estimat Glomerular Filtration Rate 88, BUN/Creatinine Ratio 20, Glucose Level 135H, Calcium Level 9.4, Corrected Calcium 9.3, Magnesium Level 2.1, Total Bilirubin 2.8H, Aspartate Amino Transf (AST/SGOT) 25, Alanine Aminotransferase (ALT/SGPT) < 6, Alkaline Phosphatase 102, Troponin I < 0.028, C-Reactive Protein High Sensitivity 0.81H, B-Type Natriuretic Peptide 1356.3H, Total Protein 7.7, Albumin 4.1 02/18/23 12:44: Urine Color YELLOW, Urine Clarity CLEAR, Urine pH 5.5, Urine Specific [place] 1.015L, Urine Protein NEGATIVE, Urine Glucose (UA) NEGATIVE, Urine Ketones NEGATIVE, Urine Nitrite NEGATIVE, Urine Bilirubin NEGATIVE, Urine Urobilinogen 0.2, Urine Leukocyte Esterase NEGATIVE, Urine RBC (Auto) NEGATIVE, Urine RBC NONE, Urine WBC NONE, Urine Squamous Epithelial Cells NONE, Urine Crystals NONE, Urine Bacteria NEGATIVE, Urine Casts NONE, Urine Mucus NEGATIVE, Urine Culture Indicated NO 02/18/23 16:21: Glucometer 105 02/18/23 20:32: Glucometer 238H 02/19/23 04:34: White Blood Count 11.4H, Red Blood Count 5.30, Hemoglobin 15.5, Hematocrit 48, Mean Corpuscular Volume 90, Mean Corpuscular Hemoglobin 29, Mean Corpuscular Hemoglobin Concent 33, Red Cell Distribution Width 13.7, Platelet Count 216, Mean Platelet Volume 9.4, Immature Granulocyte % (Auto) 0, Neutrophils (%) (Auto) 80H, Lymphocytes (%) (Auto) 7L, Monocytes (%) (Auto) 12, Eosinophils (%) (Auto) 0, Basophils (%) (Auto) 1, Neutrophils # (Auto) 9.1H, Lymphocytes # (Auto) 0.8L, Monocytes # (Auto) 1.4H, Eosinophils # (Auto) 0.0, Basophils # (Auto) 0.1, Immature Granulocyte # (Auto) 0.0, Neutrophils % (Manual) 85, Lymphocytes % (Manual) 6, Monocytes % (Manual) 9, Blood Morphology Comment NORMAL, Sodium Level 141, Potassium Level 3.0L, Chloride Level 105, Carbon Dioxide Level 23, Anion Gap 13, Blood Urea Nitrogen 15, Creatinine 0.84, Estimat Glomerular Filtration Rate 88, BUN/Creatinine Ratio 18, Glucose Level 103, Calcium Level 8.7, Corrected Calcium 9.0, Total Bilirubin 2.4H, Aspartate Amino Transf (AST/SGOT) 16, Alanine Aminotransferase (ALT/SGPT) 6, Alkaline Phosphatase 97, Total Protein 6.4, Albumin 3.6, Triglycerides Level 74, Cholesterol Level 111, LDL Cholesterol Direct 78, VLDL Cholesterol 15, HDL Cholesterol 32L, Thyroid Stimulating Hormone (TSH) 1.26 02/19/23 05:57: Glucometer 115H 02/19/23 11:03: Glucometer 197H 02/19/23 15:23: Glucometer 165H 02/19/23 20:35: Glucometer 127H 02/20/23 04:37: White Blood Count 8.9, Red Blood Count 4.99, Hemoglobin 14.5, Hematocrit 45, Mean Corpuscular Volume 90, Mean Corpuscular Hemoglobin 29, Mean Corpuscular Hemoglobin Concent 32, Red Cell Distribution Width 14.0, Platelet Count 207, Mean Platelet Volume 9.3, Immature Granulocyte % (Auto) 1, Neutrophils (%) (Auto) 79H, Lymphocytes (%) (Auto) 8L, Monocytes (%) (Auto) 12, Eosinophils (%) (Auto) 0, Basophils (%) (Auto) 1, Neutrophils # (Auto) 7.0, Lymphocytes # (Auto) 0.7L, Monocytes # (Auto) 1.1H, Eosinophils # (Auto) 0.0, Basophils # (Auto) 0.0, Immature Granulocyte # (Auto) 0.0, Prothrombin Time 20.8H, INR Comment 1.8H, Activated Partial Thromboplast Time 44H, Sodium Level 141, Potassium Level 3.7, Chloride Level 106, Carbon Dioxide Level 21, Anion Gap 14, Blood Urea Nitrogen 11, Creatinine 0.82, Estimat Glomerular Filtration Rate 89, BUN/Creatinine Ratio 13, Glucose Level 115H, Calcium Level 8.8, Corrected Calcium 9.1, Total Bilirubin 2.8H, Aspartate Amino Transf (AST/SGOT) 13, Alanine Aminotransferase (ALT/SGPT) < 6, Alkaline Phosphatase 94, Total Protein 6.6, Albumin 3.6 02/20/23 12:14: Glucometer 103 02/20/23 16:37: Glucometer 157H 02/20/23 20:34: Glucometer 122H 02/21/23 04:48: White Blood Count 18.6H, Red Blood Count 4.58, Hemoglobin 13.6, Hematocrit 42, Mean Corpuscular Volume 92, Mean Corpuscular Hemoglobin 30, Mean Corpuscular Hemoglobin Concent 32, Red Cell Distribution Width 14.1, Platelet Count 222, Mean Platelet Volume 9.5, Immature Granulocyte % (Auto) 0, Neutrophils (%) (Auto) 83H, Lymphocytes (%) (Auto) 4L, Monocytes (%) (Auto) 12, Eosinophils (%) (Auto) 0, Basophils (%) (Auto) 0, Neutrophils # (Auto) 15.5H, Lymphocytes # (Auto) 0.7L, Monocytes # (Auto) 2.3H, Eosinophils # (Auto) 0.0, Basophils # (Auto) 0.1, Immature Granulocyte # (Auto) 0.1, Neutrophils % (Manual) 84, Lymphocytes % (Manual) 9, Monocytes % (Manual) 7, Blood Morphology Comment NORMAL, Sodium Level 140, Potassium Level 4.5, Chloride Level 106, Carbon Dioxide Level 21, Anion Gap 13, Blood Urea Nitrogen 20H, Creatinine 1.21, Estimat Glomerular Filtration Rate 61, BUN/Creatinine Ratio 17, Glucose Level 156H, Calcium Level 9.4, Corrected Calcium 9.6, Total Bilirubin 3.3H, Aspartate Amino Transf (AST/SGOT) 21, Alanine Aminotransferase (ALT/SGPT) < 6, Alkaline Phosphatase 93, Total Protein 7.0, Albumin 3.8 Pending Labs Laboratory Tests 02/18/23 11:49: White Blood Count 7.5, Red Blood Count 5.49, Hemoglobin 16.1, Hematocrit 51, Mean Corpuscular Volume 92, Mean Corpuscular Hemoglobin 29, Mean Corpuscular Hemoglobin Concent 32, Red Cell Distribution Width 13.9, Platelet Count 281, Mean Platelet Volume 9.7, Immature Granulocyte % (Auto) 0, Neutrophils (%) (Auto) 78, Lymphocytes (%) (Auto) 11, Monocytes (%) (Auto) 9, Eosinophils (%) (Auto) 0, Basophils (%) (Auto) 1, Neutrophils # (Auto) 5.9, Lymphocytes # (Auto) 0.9, Monocytes # (Auto) 0.7, Eosinophils # (Auto) 0.0, Basophils # (Auto) 0.1, Immature Granulocyte # (Auto) 0.0, Sodium Level 141, Potassium Level 3.8, Chloride Level 109, Carbon Dioxide Level 21, Anion Gap 11, Blood Urea Nitrogen 17, Creatinine 0.86, Estimat Glomerular Filtration Rate 88, BUN/Creatinine Ratio 20, Glucose Level 135, Calcium Level 9.4, Corrected Calcium 9.3, Magnesium Level 2.1, Total Bilirubin 2.8, Aspartate Amino Transf (AST/SGOT) 25, Alanine Aminotransferase (ALT/SGPT) < 6, Alkaline Phosphatase 102, Troponin I < 0.028, C-Reactive Protein High Sensitivity 0.81, B-Type Natriuretic Peptide 1356.3, Total Protein 7.7, Albumin 4.1 02/18/23 12:44: Urine Color YELLOW, Urine Clarity CLEAR, Urine pH 5.5, Urine Specific [place] 1.015, Urine Protein NEGATIVE, Urine Glucose (UA) NEGATIVE, Urine Ketones NEGATIVE, Urine Nitrite NEGATIVE, Urine Bilirubin NEGATIVE, Urine Urobilinogen 0.2, Urine Leukocyte Esterase NEGATIVE, Urine RBC (Auto) NEGATIVE, Urine RBC NONE, Urine WBC NONE, Urine Squamous Epithelial Cells NONE, Urine Crystals NONE, Urine Bacteria NEGATIVE, Urine Casts NONE, Urine Mucus NEGATIVE, Urine Culture Indicated NO 02/18/23 16:21: Glucometer 105 02/18/23 20:32: Glucometer 238 02/19/23 04:34: White Blood Count 11.4, Red Blood Count 5.30, Hemoglobin 15.5, Hematocrit 48, Mean Corpuscular Volume 90, Mean Corpuscular Hemoglobin 29, Mean Corpuscular Hemoglobin Concent 33, Red Cell Distribution Width 13.7, Platelet Count 216, Mean Platelet Volume 9.4, Immature Granulocyte % (Auto) 0, Neutrophils (%) (Auto) 80, Lymphocytes (%) (Auto) 7, Monocytes (%) (Auto) 12, Eosinophils (%) (Auto) 0, Basophils (%) (Auto) 1, Neutrophils # (Auto) 9.1, Lymphocytes # (Auto) 0.8, Monocytes # (Auto) 1.4, Eosinophils # (Auto) 0.0, Basophils # (Auto) 0.1, Immature Granulocyte # (Auto) 0.0, Neutrophils % (Manual) 85, Lymphocytes % (Manual) 6, Monocytes % (Manual) 9, Blood Morphology Comment NORMAL, Sodium Level 141, Potassium Level 3.0, Chloride Level 105, Carbon Dioxide Level 23, Anion Gap 13, Blood Urea Nitrogen 15, Creatinine 0.84, Estimat Glomerular Filtration Rate 88, BUN/Creatinine Ratio 18, Glucose Level 103, Calcium Level 8.7, Corrected Calcium 9.0, Total Bilirubin 2.4, Aspartate Amino Transf (AST/SGOT) 16, Alanine Aminotransferase (ALT/SGPT) 6, Alkaline Phosphatase 97, Total Protein 6.4, Albumin 3.6, Triglycerides Level 74, Cholesterol Level 111, LDL Cholesterol Direct 78, VLDL Cholesterol 15, HDL Cholesterol 32, Thyroid Stimulating Hormone (TSH) 1.26 02/19/23 05:57: Glucometer 115 02/19/23 11:03: Glucometer 197 02/19/23 15:23: Glucometer 165 02/19/23 20:35: Glucometer 127 02/20/23 04:37: White Blood Count 8.9, Red Blood Count 4.99, Hemoglobin 14.5, Hematocrit 45, Mean Corpuscular Volume 90, Mean Corpuscular Hemoglobin 29, Mean Corpuscular Hemoglobin Concent 32, Red Cell Distribution Width 14.0, Platelet Count 207, Mean Platelet Volume 9.3, Immature Granulocyte % (Auto) 1, Neutrophils (%) (Auto) 79, Lymphocytes (%) (Auto) 8, Monocytes (%) (Auto) 12, Eosinophils (%) (Auto) 0, Basophils (%) (Auto) 1, Neutrophils # (Auto) 7.0, Lymphocytes # (Auto) 0.7, Monocytes # (Auto) 1.1, Eosinophils # (Auto) 0.0, Basophils # (Auto) 0.0, Immature Granulocyte # (Auto) 0.0, Prothrombin Time 20.8, INR Comment 1.8, Activated Partial Thromboplast Time 44, Sodium Level 141, Potassium Level 3.7, Chloride Level 106, Carbon Dioxide Level 21, Anion Gap 14, Blood Urea Nitrogen 11, Creatinine 0.82, Estimat Glomerular Filtration Rate 89, BUN/Creatinine Ratio 13, Glucose Level 115, Calcium Level 8.8, Corrected Calcium 9.1, Total Bilirubin 2.8, Aspartate Amino Transf (AST/SGOT) 13, Alanine Aminotransferase (ALT/SGPT) < 6, Alkaline Phosphatase 94, Total Protein 6.6, Albumin 3.6 02/20/23 12:14: Glucometer 103 02/20/23 16:37: Glucometer 157 02/20/23 20:34: Glucometer 122 02/21/23 04:48: White Blood Count 18.6, Red Blood Count 4.58, Hemoglobin 13.6, Hematocrit 42, Mean Corpuscular Volume 92, Mean Corpuscular Hemoglobin 30, Mean Corpuscular Hemoglobin Concent 32, Red Cell Distribution Width 14.1, Platelet Count 222, Mean Platelet Volume 9.5, Immature Granulocyte % (Auto) 0, Neutrophils (%) (Auto) 83, Lymphocytes (%) (Auto) 4, Monocytes (%) (Auto) 12, Eosinophils (%) (Auto) 0, Basophils (%) (Auto) 0, Neutrophils # (Auto) 15.5, Lymphocytes # (Auto) 0.7, Monocytes # (Auto) 2.3, Eosinophils # (Auto) 0.0, Basophils # (Auto) 0.1, Immature Granulocyte # (Auto) 0.1, Neutrophils % (Manual) 84, Lymphocytes % (Manual) 9, Monocytes % (Manual) 7, Blood Morphology Comment NORMAL, Sodium Level 140, Potassium Level 4.5, Chloride Level 106, Carbon Dioxide Level 21, Anion Gap 13, Blood Urea Nitrogen 20, Creatinine 1.21, Estimat Glomerular Filtration Rate 61, BUN/Creatinine Ratio 17, Glucose Level 156, Calcium Level 9.4, Corrected Calcium 9.6, Total Bilirubin 3.3, Aspartate Amino Transf (AST/SGOT) 21, Alanine Aminotransferase (ALT/SGPT) < 6, Alkaline Phosphatase 93, Total Protein 7.0, Albumin 3.8 Discharge Home Medications: Active Scripts Active Reported Cetirizine HCl 10 Mg Tablet 10 Mg PO DAILY PRN Magnesium Oxide 250 Mg Tablet 250 Mg PO DAILY Acetaminophen ER (Acetaminophen) 650 Mg Tablet.er 650 Mg PO Q6H PRN Omeprazole 20 Mg Capsule.dr 20 Mg PO DAILY Ozempic (Semaglutide) 0.25 Mg/0.368 Ml Pen.injctr 0.25 Mg PO WED Memantine HCl 10 Mg Tablet 10 Mg PO HS Carbidopa-Levo ER 50-200 Tab (Carbidopa/Levodopa) 50 Mg-200 Mg Tablet.er 1 Each PO BID PRN Carbidopa-Levo ER 50-200 Tab (Carbidopa/Levodopa) 50 Mg-200 Mg Tablet.er 1 Each PO BID Eliquis (Apixaban) 5 Mg Tablet 5 Mg PO BID Nitroglycerin 0.4 Mg Tab.subl 0.4 Mg SL UD PRN Lisinopril 40 Mg Tablet 40 Mg PO DAILY Donepezil HCl 10 Mg Tablet 10 Mg PO HS Furosemide 20 Mg Tablet 20 Mg PO DAILY Metoprolol Tartrate 50 Mg Tablet 50 Mg PO BID Escitalopram Oxalate 20 Mg Tablet 20 Mg PO DAILY Allopurinol 100 Mg Tablet 100 Mg PO DAILY Instructions to patient/family Please see electronic discharge instructions given to patient. DEVEN RODGERS DO Feb 21, 2023 10:27
[2023-02-21 13:08] VITALS: BP 153/85
== END 2023-02-21 10:55 | disposition short-term general hospital (02) ==
LOC: EDUNIT# 11:31 → ER 11:33 → CSD 15:22
PROVIDERS: ADMIT Internal Medicine; ATTEND Internal Medicine
DX: I25.10 Atherosclerotic heart disease of native coronary artery without angina pectoris (principal); R31.9 Hematuria, unspecified; I21.4 Non-ST elevation (NSTEMI) myocardial infarction; I50.21 Acute systolic (congestive) heart failure; I11.0 Hypertensive heart disease with heart failure; E78.5 Hyperlipidemia, unspecified; I25.5 Ischemic cardiomyopathy; N32.89 Other specified disorders of bladder; J96.21 Acute and chronic respiratory failure with hypoxia; I48.91 Unspecified atrial fibrillation; G20.A1 Parkinson's disease without dyskinesia, without mention of fluctuations; I27.20 Pulmonary hypertension, unspecified; I65.29 Occlusion and stenosis of unspecified carotid artery; R30.0 Dysuria; F02.80 Dementia in other diseases classified elsewhere, unspecified severity, without behavioral disturbance, psychotic disturbance, mood disturbance, and anxiety; F32.A Depression, unspecified; F41.9 Anxiety disorder, unspecified; E11.9 Type 2 diabetes mellitus without complications; G47.33 Obstructive sleep apnea (adult) (pediatric); Z79.899 Other long term (current) drug therapy
CPT/HCPCS: 36415; 51702; 71046; 80053; 80061; 81000; 82947; 83735; 83880; 84443; 84484; 85007; 85025; 85027; 85610; 85730; 86141; 93005; 93041; 93306; 93458; 94640; 96374; 96375; 96376

== ENCOUNTER 2023-03-13 21:34 | Emergency (ER) | payer MEDICARE, MEDICAID ==
[~2023-03-13] VITALS: Ht 172.7 cm; Wt 84.8 kg
[~2023-03-13 21:34] MED LIST changes: +ACET-2422 PO; +AMLO10TA4 PO; +MEMA10TA57 PO; +NITR0.4T39 SL; +OMEP20CA18 PO; +SEMA0.258 PO
[2023-03-13] MEDS ORDERED: LIDOCAINE UROJET 2% GEL 10 ML PKG ONE (21:48)
--- NOTE | 2023-03-13 21:54 | ED GU-Male ---
General Stated Complaint: URINARY ISSUES Source: patient, EMS Exam Limitations: no limitations History of Present Illness Date Seen by Provider: Mar 13, 2023 Time Seen by Provider: 21:40 Initial Comments 78-year-old male presents via EMS from a local nursing facility for urinary retention. He had a Babb catheter removed at 5:00 and has been unable to void since that time. He has increasing pain in the suprapubic region. Catheter was initially placed due to urinary retention secondary to some clots and bleeding from his bladder. He states he was admitted to [facility] for continuous bladder irrigation for a few days and ultimately discharged with catheter in place. Catheter was removed today. It is unclear the source of his bleeding at this time. He states at the time of catheter removal today his urine was clear. All other systems reviewed and negative except documented per HPI. Voice recognition software was used to help create this chart Allergies and Home Medications Allergies Coded Allergies: NKANo Known Allergies (Unverified Allergy, Mild, 09/19/17) Patient Home Medication List Home Medication List Reviewed: Yes Acetaminophen (Acetaminophen ER) 650 Mg Tablet.er, 650 MG PO Q6H PRN for PAIN- MILD (1-4), (Reported) Entered as Reported by: RADHA HERNANDEZ on 02/19/23 1144 Allopurinol (Allopurinol) 100 Mg Tablet, 100 MG PO DAILY, (Reported) Entered as Reported by: SALONI TAYLOR on 05/08/16 1607 Apixaban (Eliquis) 5 Mg Tablet, 5 MG PO BID, (Reported) Entered as Reported by: RADHA HERNANDEZ on 02/19/23 1128 Carbidopa/Levodopa (Carbidopa-Levo ER 50-200 Tab) 50 Mg-200 Mg Tablet.er, 1 EACH PO BID, (Reported) Entered as Reported by: RADHA HERNANDEZ on 02/19/23 1128 Carbidopa/Levodopa (Carbidopa-Levo ER 50-200 Tab) 50 Mg-200 Mg Tablet.er, 1 EACH PO BID PRN for TREMORS, (Reported) Entered as Reported by: RADHA HERNANDEZ on 02/19/23 1128 Cetirizine HCl (Cetirizine HCl) 10 Mg Tablet, 10 MG PO DAILY PRN for ALLERGY SYMPTOMS, (Reported) Entered as Reported by: RADHA HERNANDEZ on 02/19/23 1144 Donepezil HCl (Donepezil HCl) 10 Mg Tablet, 10 MG PO HS, (Reported) Entered as Reported by: CHARISSA MCKEON on 01/02/21 1038 Escitalopram Oxalate (Escitalopram Oxalate) 20 Mg Tablet, 20 MG PO DAILY, (Reported) Entered as Reported by: RADHA HERNNADEZ on 09/16/19 1351 Furosemide (Furosemide) 20 Mg Tablet, 20 MG PO DAILY, (Reported) Entered as Reported by: LUIS ALBERTO ENGLISH on 03/28/20 1428 Lisinopril (Lisinopril) 40 Mg Tablet, 40 MG PO DAILY, (Reported) Entered as Reported by: LUIS ALBERTO ENGLISH on 01/25/21 1428 Magnesium Oxide (Magnesium Oxide) 250 Mg Tablet, 250 MG PO DAILY, (Reported) Entered as Reported by: RADHA HERNANDEZ on 02/19/23 1144 Memantine HCl (Memantine HCl) 10 Mg Tablet, 10 MG PO HS, (Reported) Entered as Reported by: RADHA HERNANDEZ on 02/19/23 1128 Metoprolol Tartrate (Metoprolol Tartrate) 50 Mg Tablet, 50 MG PO BID, (Reported) Entered as Reported by: RADHA HERNANDEZ on 09/16/19 1351 Nitroglycerin (Nitroglycerin) 0.4 Mg Tab.subl, 0.4 MG SL UD PRN for CHEST PAIN, (Reported) Entered as Reported by: RADHA HERNANDEZ on 02/19/23 1128 Omeprazole (Omeprazole) 20 Mg Capsule.dr, 20 MG PO DAILY, (Reported) Entered as Reported by: RADHA HERNANDEZ on 02/19/23 1128 Semaglutide (Ozempic) 0.25 Mg/0.368 Ml Pen.injctr, 0.25 MG PO WED, (Reported) Entered as Reported by: RADHA HERNANDEZ on 02/19/23 1128 Review of Systems Review of Systems Constitutional: see HPI Past Cfvhgss-[id number]-Jvrhps Hx Patient Social History Tobacco Use?: No Use of E-Cig and/or Vaping dev: No Substance use?: No Alcohol Use?: No Immunizations Up To Date Tetanus Booster (TDap): Less than 5yrs PED Vaccines UTD: Yes First/Initial COVID19 Vaccinat: NO Second COVID19 Vaccination Phong: NO Third COVID19 Vaccination Date: NO Seasonal Allergies Seasonal Allergies: Yes (POLLEN ) Past Medical History Surgery/Hospitalization HX: A FIB, DIABETIC TYPE II, PARKINSONS, 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, LYUBOV, COLON CA, HTN, HLD Surgeries: Yes (HERNIA; HEMORRHOIDS;EYE MUSCLE SURGERY;SKIN GRAFT;CARDIAC CATH- ANGIOPLASTY ) Gallbladder Respiratory: No (pt states he has difficulty sleeping lying down, prefers to sleep upright) Currently Using CPAP: No Currently Using BIPAP: No Cardiac: Yes (CARDIAC CATHS--ANGIOPLASTY X 2--LAST CATH 2017-NO INTERVENTION;CHF) Atrial Fibrillation, Coronary Artery Disease, High Cholesterol, Hypertension Neurological: Yes Dementia, Parkinson's Disease Reproductive Disorders: No Sexually Transmitted Disease: No HIV/AIDS: No Genitourinary: Yes Benign Prostatic Hyperpl Gastrointestinal: Yes Polyps Musculoskeletal: Yes Degenerate Disk Disease, Arthritis, Chronic Back Pain, Gout Endocrine: Yes Diabetes, Non-Insulin dep HEENT: Yes Cataract Loss of Vision: Denies Hearing Impairment: Hard of Hearing Cancer: Yes Skin Did You Recieve Any Treatments: Yes What Type of Treatment Did You: Surgical Intervention Psychosocial: Yes Anxiety, Depression Integumentary: Yes (skin graft to left graham, BASAL CELL CARCINOMAS *10) Blood Disorders: No Adverse Reaction/Blood Tranf: No (N/A) Family Medical History Cardiovascular disease 19 FATHER Hypertension 19 FATHER No Pertinent Family Hx Physical Exam Vital Signs Vital Signs - First Documented 03/13/23 21:35 Temp 36.6 Pulse 72 Resp 18 B/P (MAP) 170/100 (123) Pulse Ox 96 O2 Delivery Room Air Capillary Refill : Height, Weight, BMI Height: 5'8.00" Weight: 207lbs. 0.0oz. 93.153050gm; 27.59 BMI Method:Stated General Appearance: WD/WN, no apparent distress Cardiovascular: regular rate, rhythm, no murmur Respiratory: chest non-tender, lungs clear, normal breath sounds Gastrointestinal: soft, other (Palpable bladder with overlying tenderness. Voluntary guarding without any rebound tenderness. ) Progress/Results/Core Measures Suspected Sepsis SIRS Temperature: Pulse: Respiratory Rate: Blood Pressure / Mean: Results/Orders My Orders Orders - MARY TIAN DO Babb Cath (03/13/23 21:50) Lidocaine 2% (Urojet) (Lidocaine 2% (Uro (03/13/23 21:48) Vital Signs/I&O 03/13/23 21:35 Temp 36.6 Pulse 72 Resp 18 B/P (MAP) 170/100 (123) Pulse Ox 96 O2 Delivery Room Air Capillary Refill : Departure Communication (Admissions) Patient is hemodynamically stable. Catheter was placed here without difficulty. A few blood clots initially but urine is completely clear thereafter. His blood pressure improved after catheter placement, likely secondary to decreased pain. He is currently being worked up by urologist we will have him follow-up with him. Impression Primary Impression: Urinary retention Disposition: HOME, SELF-CARE Condition: Stable Departure-Patient Inst. Referrals: ANA RAMESH DO (PCP/Family) Primary Care Physician Patient Instructions: Urinary Retention Add. Discharge Instructions: Maintain regular catheter care. Follow-up with urology for discussion of removal versus further testing. Return to the emergency department for any severe concerns. MARY TIAN DO Mar 13, 2023 21:54
[2023-03-13 22:26] VITALS: BP 170/100
== END 2023-03-13 22:26 | disposition home or self-care (01) ==
LOC: EDUNIT# 21:34 → ER 21:35
DX: N40.1 Benign prostatic hyperplasia with lower urinary tract symptoms (principal); R33.8 Other retention of urine
CPT/HCPCS: 51702

== ENCOUNTER 2023-03-20 11:22 | Emergency (ER) | payer MEDICARE, MEDICAID ==
[~2023-03-20] VITALS: Ht 172 cm; Wt 84.3 kg
--- NOTE | 2023-03-20 11:53 | ED GU-Male ---
General Stated Complaint: BLOOD IN URINE Source: patient Exam Limitations: no limitations History of Present Illness Date Seen by Provider: Mar 20, 2023 Time Seen by Provider: 11:40 Initial Comments 78-year-old male presents emergency department today for hematuria. He has an indwelling Babb catheter currently. This is secondary to hematuria he had after he was diagnosed with atrial fibrillation, started on Eliquis. They placed the catheter and he had issues with hematuria due to difficult placement. He had large clots and ultimately had to be transferred for continuous bladder irrigation. He was seen here last week after the catheter was removed and he had urinary retention. Catheter was replaced without difficulty. Today he states he had a single episode of hematuria. While he was in the shower he drained his catheter and has since cleared and is flowing well. He has no abdominal pain. No known trauma. All other systems reviewed and negative except documented per HPI. Voice recognition software was used to help create this chart Allergies and Home Medications Allergies Coded Allergies: NKANo Known Allergies (Unverified Allergy, Mild, 09/19/17) Patient Home Medication List Home Medication List Reviewed: Yes Acetaminophen (Acetaminophen ER) 650 Mg Tablet.er, 650 MG PO Q6H PRN for PAIN- MILD (1-4), (Reported) Entered as Reported by: RADHA HERNANDEZ on 02/19/23 1144 Allopurinol (Allopurinol) 100 Mg Tablet, 100 MG PO DAILY, (Reported) Entered as Reported by: SALONI TAYLOR on 05/08/16 1607 Apixaban (Eliquis) 5 Mg Tablet, 5 MG PO BID, (Reported) Entered as Reported by: RADHA HERNANDEZ on 02/19/23 1128 Carbidopa/Levodopa (Carbidopa-Levo ER 50-200 Tab) 50 Mg-200 Mg Tablet.er, 1 EACH PO BID, (Reported) Entered as Reported by: RADHA HERNANDEZ on 02/19/23 1128 Carbidopa/Levodopa (Carbidopa-Levo ER 50-200 Tab) 50 Mg-200 Mg Tablet.er, 1 EACH PO BID PRN for TREMORS, (Reported) Entered as Reported by: RADHA HERNANDEZ on 02/19/23 1128 Cetirizine HCl (Cetirizine HCl) 10 Mg Tablet, 10 MG PO DAILY PRN for ALLERGY SYMPTOMS, (Reported) Entered as Reported by: RADHA HERNANDZE on 02/19/23 1144 Donepezil HCl (Donepezil HCl) 10 Mg Tablet, 10 MG PO HS, (Reported) Entered as Reported by: CHARISSA MCKEON on 01/02/21 1038 Escitalopram Oxalate (Escitalopram Oxalate) 20 Mg Tablet, 20 MG PO DAILY, (Reported) Entered as Reported by: RADHA HERNANDEZ on 09/16/19 1351 Furosemide (Furosemide) 20 Mg Tablet, 20 MG PO DAILY, (Reported) Entered as Reported by: LUIS ALBERTO ENGLISH on 03/28/20 1428 Lisinopril (Lisinopril) 40 Mg Tablet, 40 MG PO DAILY, (Reported) Entered as Reported by: LUIS ALBERTO ENGLISH on 01/25/21 1428 Magnesium Oxide (Magnesium Oxide) 250 Mg Tablet, 250 MG PO DAILY, (Reported) Entered as Reported by: RADHA HERNANDEZ on 02/19/23 1144 Memantine HCl (Memantine HCl) 10 Mg Tablet, 10 MG PO HS, (Reported) Entered as Reported by: RADHA HERNANDEZ on 02/19/23 1128 Metoprolol Tartrate (Metoprolol Tartrate) 50 Mg Tablet, 50 MG PO BID, (Reported) Entered as Reported by: RADHA HERNANDEZ on 09/16/19 1351 Nitroglycerin (Nitroglycerin) 0.4 Mg Tab.subl, 0.4 MG SL UD PRN for CHEST PAIN, (Reported) Entered as Reported by: RADHA HERNANDEZ on 02/19/23 1128 Omeprazole (Omeprazole) 20 Mg Capsule.dr, 20 MG PO DAILY, (Reported) Entered as Reported by: RADHA HERNANDEZ on 02/19/23 1128 Semaglutide (Ozempic) 0.25 Mg/0.368 Ml Pen.injctr, 0.25 MG PO WED, (Reported) Entered as Reported by: RADHA HERNANDEZ on 02/19/23 112 Review of Systems Review of Systems Constitutional: see HPI Past Wgrlegj-Iwrwbz-Tlfycg Hx Patient Social History Tobacco Use?: No Use of E-Cig and/or Vaping dev: No Substance use?: No Alcohol Use?: No Immunizations Up To Date Tetanus Booster (TDap): Less than 5yrs PED Vaccines UTD: Yes First/Initial COVID19 Vaccinat: NO Second COVID19 Vaccination Phong: NO Third COVID19 Vaccination Date: NO Seasonal Allergies Seasonal Allergies: Yes (POLLEN ) Past Medical History Surgery/Hospitalization HX: A FIB, DIABETIC TYPE II, PARKINSONS, 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, LYUBOV, COLON CA, HTN, HLD Surgeries: Yes (HERNIA; HEMORRHOIDS;EYE MUSCLE SURGERY;SKIN GRAFT;CARDIAC CATH- ANGIOPLASTY ) Gallbladder Respiratory: No (pt states he has difficulty sleeping lying down, prefers to sleep upright) Currently Using CPAP: No Currently Using BIPAP: No Cardiac: Yes (CARDIAC CATHS--ANGIOPLASTY X 2--LAST CATH 2017-NO INTERVENTION;CHF) Atrial Fibrillation, Coronary Artery Disease, High Cholesterol, Hypertension Neurological: Yes Dementia, Parkinson's Disease Reproductive Disorders: No Sexually Transmitted Disease: No HIV/AIDS: No Genitourinary: Yes Benign Prostatic Hyperpl Gastrointestinal: Yes Polyps Musculoskeletal: Yes Degenerate Disk Disease, Arthritis, Chronic Back Pain, Gout Endocrine: Yes Diabetes, Non-Insulin dep HEENT: Yes Cataract Loss of Vision: Denies Hearing Impairment: Hard of Hearing Cancer: Yes Skin Did You Recieve Any Treatments: Yes What Type of Treatment Did You: Surgical Intervention Psychosocial: Yes Anxiety, Depression Integumentary: Yes (skin graft to left graham, BASAL CELL CARCINOMAS *10) Blood Disorders: No Adverse Reaction/Blood Tranf: No (N/A) Family Medical History Cardiovascular disease 19 FATHER Hypertension 19 FATHER No Pertinent Family Hx Physical Exam Vital Signs Vital Signs - First Documented 03/20/23 11:53 Temp 36.6 Pulse 46 Resp 18 B/P (MAP) 119/76 (90) Pulse Ox 92 Capillary Refill : Height, Weight, BMI Height: 5'8.00" Weight: 207lbs. 0.0oz. [id number]; 28.00 BMI Method:Stated General Appearance: WD/WN, no apparent distress HEENT: normal ENT inspection, pharynx normal Neck: non-tender, full range of motion, supple Cardiovascular: regular rate, rhythm, no murmur Respiratory: chest non-tender, lungs clear, normal breath sounds, no respiratory distress, no accessory muscle use Gastrointestinal: normal bowel sounds, non tender, soft Extremities: normal range of motion, non-tender, normal inspection Neurologic/Psychiatric: alert, oriented x 3 Skin: normal color, warm/dry Progress/Results/Core Measures Suspected Sepsis SIRS Temperature: Pulse: Respiratory Rate: Blood Pressure / Mean: Results/Orders My Orders Orders - MARY TIAN DO Ua Culture If Indicated (03/20/23 11:26) Vital Signs/I&O 03/20/23 11:53 Temp 36.6 Pulse 46 Resp 18 B/P (MAP) 119/76 (90) Pulse Ox 92 Capillary Refill : Departure Communication (Admissions) Patient is hemodynamically stable. He had brief episode of hematuria today that cleared prior to arrival. He has had no recurrence. No evidence for significant bleeding, anemia. This is likely just from mild irritation of the bladder. He is observed for about 30 minutes and had no recurrence after walking. He is discharged in stable condition. Impression Primary Impression: Hematuria Qualified Codes: R31.9 - Hematuria, unspecified Disposition: 01 HOME, SELF-CARE Condition: Stable Departure-Patient Inst. Referrals: ANA RAMESH DO (PCP/Family) Primary Care Physician Patient Instructions: Blood in Urine (Hematuria), Adult ED Add. Discharge Instructions: Continue all medications as previously prescribed. Return to the emergency department for any severe concerns. MARY TIAN DO Mar 20, 2023 11:53
[2023-03-20 12:25] LABS: BACTERIA,URINE TRACE /HPF; BILIRUBIN,URINE 1+ (NEGATIVE); CLARITY,URINE CLOUDY; COLOR,URINE ORANGE; GLUCOSE, URINE (UA) TRACE (NEGATIVE); KETONES,URINE 1+ (NEGATIVE); LEUKOCYTE ESTERASE ,URINE 1+ (NEGATIVE); NITRITE,URINE NEGATIVE (NEGATIVE); PH,URINE 5.5 (5-9); PROTEIN,URINE 2+ (NEGATIVE); RBC,URINE 50-100 /HPF
[2023-03-20 12:52] VITALS: BP 106/63
== END 2023-03-20 12:52 | disposition home or self-care (01) ==
LOC: EDUNIT# 11:22 → ER 11:24
DX: R31.9 Hematuria, unspecified (principal); I48.91 Unspecified atrial fibrillation; Z79.01 Long term (current) use of anticoagulants
CPT/HCPCS: 81000; 87088; 99282

== ENCOUNTER 2023-03-21 01:22 | Emergency (ER) | payer MEDICARE, MEDICAID ==
[2023-03-21 01:25] VITALS: BP 131/83
--- NOTE | 2023-03-21 01:57 | ED GU-Male ---
General Chief Complaint: Catheter/Drain/Tube Problems Stated Complaint: CATHETER LEAKING Nursing Triage Note: Pt presents with c/o catheter leaking around penis. Pt recently was hospitalized at [facility] in [place] and discharged with catheter in place. Pt had bladder irrigation during hospitalization here and [facility]. Source: patient Exam Limitations: no limitations History of Present Illness Date Seen by Provider: Mar 21, 2023 Time Seen by Provider: 01:29 Initial Comments This 78 year gentleman presents to the emergency room by private vehicle with concerns about leaking of urine around the meatus at the insertion of his Babb catheter. He has also had decreased output from catheter bag. He has noticed blood in the catheter. He was here yesterday for evaluation of the catheter. It was evaluated he was discharged. See notes from that visit for further discussion. He is presently anticoagulated. He had been admitted to the [facility] and discharged with Babb catheter. He stayed at the [facility] until he was dismissed . Allergies and Home Medications Allergies Coded Allergies: Juan Known Allergies (Unverified Allergy, Mild, 09/19/17) Patient Home Medication List Home Medication List Reviewed: Yes Acetaminophen (Acetaminophen ER) 650 Mg Tablet.er, 650 MG PO Q6H PRN for PAIN- MILD (1-4), (Reported) Entered as Reported by: RADHA HERNANDEZ on 02/19/23 1144 Allopurinol (Allopurinol) 100 Mg Tablet, 100 MG PO DAILY, (Reported) Entered as Reported by: SALONI TAYLOR on 05/08/16 1607 Apixaban (Eliquis) 5 Mg Tablet, 5 MG PO BID, (Reported) Entered as Reported by: RADHA HERNANDEZ on 02/19/23 1128 Carbidopa/Levodopa (Carbidopa-Levo ER 50-200 Tab) 50 Mg-200 Mg Tablet.er, 1 EACH PO BID, (Reported) Entered as Reported by: RADHA HERNANDEZ on 02/19/23 1128 Carbidopa/Levodopa (Carbidopa-Levo ER 50-200 Tab) 50 Mg-200 Mg Tablet.er, 1 EACH PO BID PRN for TREMORS, (Reported) Entered as Reported by: RADHA HERNANDEZ on 02/19/23 1128 Cetirizine HCl (Cetirizine HCl) 10 Mg Tablet, 10 MG PO DAILY PRN for ALLERGY SYMPTOMS, (Reported) Entered as Reported by: RADHA HERNANDEZ on 02/19/23 1144 Donepezil HCl (Donepezil HCl) 10 Mg Tablet, 10 MG PO HS, (Reported) Entered as Reported by: CHARISSA MCKEON on 01/02/21 1038 Escitalopram Oxalate (Escitalopram Oxalate) 20 Mg Tablet, 20 MG PO DAILY, (Reported) Entered as Reported by: RADHA HERNANDEZ on 09/16/19 1351 Furosemide (Furosemide) 20 Mg Tablet, 20 MG PO DAILY, (Reported) Entered as Reported by: LUIS ALBERTO ENGLISH on 03/28/20 1428 Lisinopril (Lisinopril) 40 Mg Tablet, 40 MG PO DAILY, (Reported) Entered as Reported by: LUIS ALBERTO ENGLISH on 01/25/21 1428 Magnesium Oxide (Magnesium Oxide) 250 Mg Tablet, 250 MG PO DAILY, (Reported) Entered as Reported by: RADHA HERNANDEZ on 02/19/23 1144 Memantine HCl (Memantine HCl) 10 Mg Tablet, 10 MG PO HS, (Reported) Entered as Reported by: RADHA HERNANDEZ on 02/19/23 1128 Metoprolol Tartrate (Metoprolol Tartrate) 50 Mg Tablet, 50 MG PO BID, (Reported) Entered as Reported by: RADHA HERNANDEZ on 09/16/19 1351 Nitroglycerin (Nitroglycerin) 0.4 Mg Tab.subl, 0.4 MG SL UD PRN for CHEST PAIN, (Reported) Entered as Reported by: RADHA HERNANDEZ on 02/19/23 1128 Omeprazole (Omeprazole) 20 Mg Capsule.dr, 20 MG PO DAILY, (Reported) Entered as Reported by: RADHA HERNANDEZ on 02/19/23 1128 Semaglutide (Ozempic) 0.25 Mg/0.368 Ml Pen.injctr, 0.25 MG PO WED, (Reported) Entered as Reported by: RADHA HERNANDEZ on 02/19/23 1128 Review of Systems Review of Systems Constitutional: no symptoms reported Cardiovascular: see HPI Genitourinary: see HPI Past Woqeauc-Pysjxz-Tmnoty Hx Immunizations Up To Date Tetanus Booster (TDap): Less than 5yrs PED Vaccines UTD: Yes First/Initial COVID19 Vaccinat: NO Second COVID19 Vaccination Phong: NO Third COVID19 Vaccination Date: NO Seasonal Allergies Seasonal Allergies: Yes (POLLEN ) Past Medical History Surgery/Hospitalization HX: A FIB, DIABETIC TYPE II, PARKINSONS, 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, LYUBOV, COLON CA, HTN, HLD Surgeries: Yes (HERNIA; HEMORRHOIDS;EYE MUSCLE SURGERY;SKIN GRAFT;CARDIAC CATH- ANGIOPLASTY ) Gallbladder Respiratory: No (pt states he has difficulty sleeping lying down, prefers to sleep upright) Currently Using CPAP: No Currently Using BIPAP: No Cardiac: Yes (CARDIAC CATHS--ANGIOPLASTY X 2--LAST CATH 2016-NO INTERVENTION;CHF) Atrial Fibrillation, Coronary Artery Disease, High Cholesterol, Hypertension Neurological: Yes Dementia, Parkinson's Disease Reproductive Disorders: No Sexually Transmitted Disease: No HIV/AIDS: No Genitourinary: Yes Benign Prostatic Hyperpl Gastrointestinal: Yes Polyps Musculoskeletal: Yes Degenerate Disk Disease, Arthritis, Chronic Back Pain, Gout Endocrine: Yes Diabetes, Non-Insulin dep HEENT: Yes Cataract Loss of Vision: Denies Hearing Impairment: Hard of Hearing Cancer: Yes Skin Did You Recieve Any Treatments: Yes What Type of Treatment Did You: Surgical Intervention Psychosocial: Yes Anxiety, Depression Integumentary: Yes (skin graft to left graham, BASAL CELL CARCINOMAS *10) Blood Disorders: No Adverse Reaction/Blood Tranf: No (N/A) Family Medical History Cardiovascular disease 19 FATHER Hypertension 19 FATHER No Pertinent Family Hx Physical Exam Vital Signs Vital Signs - First Documented 03/21/23 01:25 Temp 36.6 Pulse 66 Resp 16 B/P (MAP) 131/83 (99) Capillary Refill : Less Than 3 Seconds Height, Weight, BMI Height: 5'8.00" Weight: 207lbs. 0.0oz. [id number]; 28.00 BMI Method:Stated General Appearance: WD/WN, no apparent distress Male: other (Leaking from the meatus. Urine with small clots and blood. External genital exam otherwise normal. ) Progress/Results/Core Measures Suspected Sepsis SIRS Temperature: Pulse: 66 Respiratory Rate: 16 Blood Pressure 131 /83 Mean: 99 Results/Orders Vital Signs/I&O 03/21/23 01:25 Temp 36.6 Pulse 66 Resp 16 B/P (MAP) 131/83 (99) Capillary Refill : Less Than 3 Seconds Blood Pressure Mean: 99 Progress Note : Progress Note Catheter line was flushed with saline. Bladder was manually irrigated until blood was thin and no further clots were produced. See discharge instructions for further discussion. Departure Impression Primary Impression: Hematuria Qualified Codes: R31.0 - Gross hematuria Additional Impression: Babb catheter problem Qualified Codes: T83.9XXD - Unspecified complication of genitourinary prosthetic device, implant and graft, subsequent encounter Disposition: 01 HOME, SELF-CARE Condition: Improved Departure-Patient Inst. Decision time for Depature: 01:54 Referrals: ANA RAMESH DO (PCP/Family) Primary Care Physician Patient Instructions: How to Care for Your Babb Catheter, Male Add. Discharge Instructions: Drink lots of clear liquids to help produce urine. This will help flush your catheter and keep it clear of clots. Skip your morning dose of Eliquis. You may resume this evening if bleeding stops. A urine culture from your urine specimen yesterday is pending. Please follow-up with your primary care provider or urologist on Saturday to review urine culture results. This will help them know if you should be taking antibiotics. Empty your urine canister often. Keep the urine canister below the level of your waist to prevent back washing of old urine into the catheter. Schedule a follow-up visit with your urologist as soon as possible. Return to the ER if you have worsening symptoms despite following these instructions. All discharge instructions reviewed with patient and/or family. Voiced understanding. Copy Copies To 1: ANA RAMESH JOSHUA T MD Mar 21, 2023 01:57
== END 2023-03-21 02:24 | disposition home or self-care (01) ==
LOC: EDUNIT# 01:22 → ER 01:23
DX: T83.83XA Hemorrhage due to genitourinary prosthetic devices, implants and grafts, initial encounter (principal)
CPT/HCPCS: 99283